=== PATIENT | male | born 1955 | race Caucasian/White ===

== ENCOUNTER → 2019-02-27 08:04 | Outpatient (CLI) | payer MEDICARE, MEDICAID, SELFPAY ==
[2019-02-06 09:50] VITALS: BMI 22.1
--- NOTE | 2019-02-27 08:06 | ECHOD_ITS ---
Reason For Study: DYSPNEA/SOB Procedure This was a 2D Doppler, Color Flow transthoracic echocardiogram. The study was technically difficult. Due to patient's developmental delays exam was performed supine. Exam performed in department. Left Ventricle Normal LV size. Mild global left ventricular systolic dysfunction. The estimated ejection fraction is 45 %. Diastolic function is indeterminate. Mid-Anterior : Hypokinetic. Mid-Lateral : Hypokinetic. Mid-Posterior: Hypokinetic. Mid-Inferior: Hypokinetic. Mid-inferoseptal : Hypokinetic. Mid- anteroseptal : Hypokinetic. [place] : Hypokinetic. Right Ventricle Normal RV size. Normal systolic function. Atria Normal left atrium. Normal right atrium. No doppler evidence for ASD. Mitral Valve There is no mitral annular calcification. Normal mitral valve. Mild (1+) mitral valve insufficiency. Tricuspid Valve Normal tricuspid valve. Trivial tricuspid valve insufficiency. Unable to estimate RV systolic pressure/pulmonary artery pressure due to technically difficult study. Aortic Valve Trisinus/trileaflet aortic valve. Normal aortic valve. Mild (1+) aortic valve insufficiency. Pulmonic Valve The pulmonic valve is not well visualized. Trivial pulmonic valve insufficiency. Great Vessels Normal sized aortic root. Pericardium/Pleural No pericardial effusion. MMode/2D Measurements & Calculations LVIDd: 4.6 cm IVSd: 0.93 cm Ao root diam: 3.2 cm LVIDs: 3.4 cm LVPWd: 1.0 cm LA dimension: 2.9 cm RVDd: 2.4 cm FS: 25.4 % LAV(MOD-bp): 49.2 ml LA A4 area: 18.0 cm2 RA A4 area: 12.7 cm2 LAV(MOD-bp) Indexed: 25.7 ml/m2 LAV(MOD-sp2): 42.6 ml LAV(MOD-sp4): 47.7 ml Time Measurements MV dec time: 0.10 sec Doppler Measurements & Calculations MV E max frantz: 34.4 cm/sec Lat Peak E' Frantz: 5.5 cm/sec Med Peak E' Frantz: 7.9 cm/sec MV A max frantz: 46.7 cm/sec E/E' lat: 6.3 E/E' med: 4.4 MV E/A: 0.74 Ao V2 max: 112.4 cm/sec AI max frantz: 461.0 cm/sec LV V1 max: 99.8 cm/sec Ao max P.0 mmHg AI max P.0 mmHg LV V1 max P.0 mmHg AI dec slope: 320.2 cm/sec2 AI P1/2t: 421.7 msec PA V2 max: 85.4 cm/sec Interpretation Summary The study was technically difficult. Mild global left ventricular systolic dysfunction. The estimated ejection fraction is 45 %. Mild (1+) mitral valve insufficiency. Trivial tricuspid valve insufficiency. Mild (1+) aortic valve insufficiency. Trivial pulmonic valve insufficiency. Unable to estimate RV systolic pressure/pulmonary artery pressure due to technically difficult study. Diastolic function is indeterminate. Ordering Physician: Isauro Aaron Referring Physician: Nehemiah Thomas Performed By: Angie Hoffman RDCS, RVT
== END ==
PROVIDERS: Family Provider Internal Medicine; PCP Internal Medicine; Referring Provider Nurse Practitioner Family; Visit Provider Nurse Practitioner Family
DX: R06.09 Other forms of dyspnea (principal); I25.2 Old myocardial infarction; I43 Cardiomyopathy in diseases classified elsewhere; I10 Essential (primary) hypertension; E78.00 Pure hypercholesterolemia, unspecified; E11.9 Type 2 diabetes mellitus without complications
CPT/HCPCS: 93306

== ENCOUNTER → 2019-11-26 08:20 | Outpatient (CLI) | payer MEDICARE, MEDICAID, SELFPAY ==
[2019-02-06 09:50] VITALS: BMI 22.1
--- NOTE | 2019-11-26 08:22 | RAD_ITS ---
STUDY: AIR-CONTRAST UPPER GI SERIES. REASON FOR EXAM: Male, 64 years old. GI BLEEDING, VOMITING, DOUBLE HERNIA 3-4 YRS -- ABD PAIN FLUOROSCOPY TIME (if supplied): ( 38 seconds. ) minutes/seconds. 17 images were obtained. TECHNIQUE: The patient ingested barium. Multiple images of the esophagus, stomach and duodenum were obtained. COMPARISON: None. FINDINGS: The esophagus is unremarkable. There is no evidence of gastroesophageal reflux. No mass lesion or stricture is seen. The stomach and duodenum are unremarkable. There is no evidence of ulceration. No mass lesion is present. RAD/Upper GI Single Contrast IMPRESSION: Unremarkable air-contrast upper GI series. Electronically Signed: Andrew Harris, at 13:39 EDT , Service support ,
== END ==
PROVIDERS: PCP Internal Medicine; Referring Provider Nurse Practitioner Adult Health; Visit Provider Nurse Practitioner Adult Health
DX: R10.9 Unspecified abdominal pain (principal)
CPT/HCPCS: 74240

== ENCOUNTER 2020-10-15 10:23 | Emergency (ER) | payer MEDICARE, MEDICAID, SELFPAY ==
[2020-10-15 10:24] VITALS: BP 123/77; PULSE 91; RESP 18; TEMP 36.6; O2SAT 97; BMI 20.9
--- NOTE | 2020-10-15 10:44 | CT_ITS ---
STUDY: CT BRAIN WITHOUT CONTRAST REASON FOR EXAM: Male, 65 years old. Off balance, hx of strokes RADIATION DOSAGE (If Supplied By Facility): CTDIvol = ( 44.99 ) mGy, DLP = ( 829.85 ) mGycm TECHNIQUE: Transaxial CT imaging of the brain was performed without administration of intravenous contrast material. Individualized dose optimization techniques were used for this CT. COMPARISON: No relevant priors. FINDINGS: Normal soft tissue structures. Normal calvarium. There is mild cerebral atrophy with widening of the extra-axial spaces and ventricular dilatation. There is evidence of encephalomalacia involving the right frontal lobe suggestive of prior ischemic infarction. Lacunar infarct in the insular cortex of the left temporal lobe. Normal brainstem. Normal cerebellum. There is no intracranial hemorrhage. There are no findings of an acute ischemic infarction. Normal visualized paranasal sinuses. CT/Brain/Head without Contrast IMPRESSION: Chronic involutional changes of the brain. Encephalomalacia involving the right frontal lobe. Electronically Signed: Andrew Harris MD at 11:55 EDT , Service support ,
[2020-10-15 10:55] LABS: Absolute Lymphocyte Count 1.68 X10^3/uL (0.83-4.51); Absolute Neutrophil Count 4.3 X10^3/uL (2.0-7.7); Basophil# 0.06 X10^3/uL; Basophil% 0.9 % (0-1); Eosinophil# 0.16 X10^3/uL; Eosinophils% 2.3 % (0-5); Hematocrit 48.3 % (40-54); Hemoglobin 15.5 g/dL (13.0-16.5); Lymphocyte # 1.68 X10^3/ul (0.83-4.51); Lymphocyte % 24.6 % (19-41); Mean Corp Hgb Conc 32.1 g/dL (32-36); Mean Corpuscular Hgb 27.9 pg (27.0-32.0); Mean Corpuscular Volume 86.9 fL (80-94); Monocyte% 8.8 % (0-10); NRBC Flagged by Analyzer 0 % (0-5); Neutrophil % 63.1 % (47-70); Platelet Count 219 K/mm3 (150-450); RBC Distribution Width CV 13.2 % (11.6-14.6); RBC Distribution Width SD 42.6 fl (35.1-43.9); Red Blood Count 5.56 M/mm3 (4.6-6.2); White Blood Count 6.8 K/mm3 (4.4-11.0)
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
[2020-10-15 11:12] LABS: Anion Gap 2 (5-15); BUN 19 mg/dL (7-18); BUN/Creat Ratio 18.1 RATIO (10-20); Calcium,Total 9.5 mg/dL (8.5-10.1); Chloride 104 mmol/L (98-107); Creatinine, Serum 1.05 mg/dL (0.70-1.30); EST Glomerular Filtration Rate 76 mL/min (>60); Est Glom Filt Rate - Afr Amer 92 mL/min (>60); Glucose 143 mg/dL (74-106); Sodium Level 138 mmol/L (136-145); Troponin-I HS 5 pg/mL (3.0-78.0)
[2020-10-15 12:55] VITALS: BP 139/94
== END 2020-10-15 13:04 | disposition home or self-care (01) ==
PROVIDERS: Emergency Provider Emergency Medicine; PCP Internal Medicine
DX: R25.1 Tremor, unspecified (principal); I11.0 Hypertensive heart disease with heart failure; I50.9 Heart failure, unspecified; I25.2 Old myocardial infarction; E78.00 Pure hypercholesterolemia, unspecified; E11.9 Type 2 diabetes mellitus without complications; Z79.84 Long term (current) use of oral hypoglycemic drugs; Z79.82 Long term (current) use of aspirin; Z79.899 Other long term (current) drug therapy; Z86.73 Personal history of transient ischemic attack (TIA), and cerebral infarction without residual deficits
CPT/HCPCS: 70450; 80048; 84484; 85025; 99285; A4216

== ENCOUNTER 2021-04-28 12:41 | Inpatient (IN) | payer MEDICARE, MEDICAID, SELFPAY ==
[2021-04-28] VITALS (7 sets, daily range): BP systolic 120–140; BP diastolic 65–88; PULSE 78–112; RESP 16–40; TEMP 36.3–38.2; O2SAT 98–99
--- NOTE | 2021-04-28 14:38 | EKG12_ITS ---
Test Reason : Blood Pressure : / mmHG Vent. Rate : 103 BPM Atrial Rate : 103 BPM P-R Int : 144 ms QRS Dur : 086 ms QT Int : 332 ms P-R-T Axes : 019 -18 135 degrees QTc Int : 434 ms Sinus tachycardia Septal infarct , age undetermined ST & T wave abnormality, consider anterolateral ischemia Abnormal ECG Confirmed by QUINCY GOODSON, ZULEIMA ([id number]), editor book MYRIAM HER ([id number]) on 04/29/2021 9:11:50 AM Referred By: CARLY Confirmed By:ZULEIMA MATHEW MD
--- NOTE | 2021-04-28 14:38 | RAD_ITS ---
STUDY: X-RAY CHEST REASON FOR EXAM: Male, 66 years old. Fever. TECHNIQUE: Single AP portable view of the chest. COMPARISON: None. FINDINGS: EKG electrodes are seen. The lungs are clear and expanded. There is no demonstrated pleural abnormality. Normal size heart. Normal mediastinum and quique. Normal visualized pulmonary arteries. There is atherosclerotic tortuosity of the aortic arch and descending thoracic aorta. There are degenerative changes of the visualized thoracic spine. Normal visualized ribs, clavicles, and shoulders. There is no demonstrated abnormality of the visualized soft tissue structures of the upper abdomen. RAD/Chest 1 View (Portable) IMPRESSION: No acute abnormality is seen. Electronically Signed: Andrew Harris MD at 15:12 EST ,
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
[2021-04-28 14:53] LABS: Mucous, Urine 0 SEEN /hpf (<or=2+)
[2021-04-28 14:54] LABS: Absolute Lymphocyte Count 1.09 X10^3/uL (0.83-4.51); Absolute Neutrophil Count 16.4 X10^3/uL (2.0-7.7); Basophil# 0.05 X10^3/uL; Basophil% 0.3 % (0-1); Eosinophils% 0.5 % (0-5); Hematocrit 46.8 % (40-54); Hemoglobin 15.8 g/dL (13.0-16.5); Lymphocyte # 1.09 X10^3/ul (0.83-4.51); Lymphocyte % 5.6 % (19-41); Mean Corp Hgb Conc 33.8 g/dL (32-36); Mean Corpuscular Hgb 28.3 pg (27.0-32.0); Mean Corpuscular Volume 83.9 fL (80-94); Mean Platelet Vol. 10.6 fl (6.2-12.0); Monocyte# 1.68 X10^3/uL; Monocyte% 8.7 % (0-10); NRBC Flagged by Analyzer 0 % (0-5); Neutrophil # 16.36 X10^3/uL (2.7-7.7); Neutrophil % 84.2 % (47-70); POSITIVE DIFFERENTIAL YES; Platelet Count 237 K/mm3 (150-450); RBC Distribution Width CV 13.3 % (11.6-14.6); RBC Distribution Width SD 41.1 fl (35.1-43.9); Red Blood Count 5.58 M/mm3 (4.6-6.2); White Blood Count 19.4 K/mm3 (4.4-11.0)
[2021-04-28 14:57] LABS: ALB/GLOB Ratio 0.9 RATIO (0.9-2.4); AST(SGOT) 10 U/L (15-37); Alanine Aminotransfer ALT/SGPT 16 U/L (16-61); Albumin, Serum 3.8 g/dL (3.2-5.0); Alkaline Phosphatase 75 U/L (45-117); Anion Gap 6 (5-15); BUN 13 mg/dL (7-18); Calcium,Total 9.5 mg/dL (8.5-10.1); Chloride 98 mmol/L (98-107); Creatinine, Serum 1.18 mg/dL (0.70-1.30); EST Glomerular Filtration Rate 66 mL/min (>60); Est Glom Filt Rate - Afr Amer 80 mL/min (>60); Estimated Creatinine Clearance 60.05 ml/min; Globulin 4.4 g/dL (2.2-4.2); Glucose 160 mg/dL (74-106); Potassium 3.3 mmol/L (3.5-5.1); Protein, Total 8.2 g/dL (6.4-8.2); Sodium Level 135 mmol/L (136-145)
[2021-04-28 14:59] LABS: Lactic Acid 1.7 mmol/L (0.4-1.9)
[2021-04-28 15:00] LABS: Differential Indicated SCAN CRITERIA MET; International Normalized Ratio 1.1; Prothrombin Time (Protime)PT. 13.5 SECONDS (11.7-14.9)
[2021-04-28 15:21] LABS: Color, Urine Yellow (Yellow); Glucose, Dipstick 250 mg/dl (Normal); Ketone-Dipstick 15 mg/dl (Negative); Leukocyte Esterase-Dipstick 500 /ul (Negative); Nitrite-Dipstick Positive (Negative); Occult Blood-Urine 150 /ul (Negative); Protein-Dipstick 15 mg/dl (Negative); Specific Gravity, Urine 1.015 (1.002-1.030); Urine Bilirubin Dipstick Negative (Negative); Urine Clarity Sl. Cloudy (Clear); Urine Urobilinogen Normal (Normal)
[2021-04-28 15:31] LABS: Bacteria 2+ /hpf (None Seen); Red Blood Cells-Urine 10-25 SEEN /hpf (0-5); Squamous Epithelial Cells - UA 0-5 SEEN /hpf (0-5); White Blood Cells 25-50 SEEN /hpf (0-5)
[2021-04-28] MEDS: Ceftriaxone 1 GM/50 ML BAG IV (16:28)
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
[2021-04-28 18:46] LABS: Bedside Glucose 176 mg/dL (74-106)
[2021-04-28] MEDS: 0.9% Normal Saline 1,000 ML 150 ML IV (19:08)
[2021-04-28] MEDS: metFORMIN HCl 500 MG Tablet PO (19:09)
[2021-04-28] MEDS: Atorvastatin Calcium 10 MG Tablet PO (22:00)
[2021-04-28] MEDS: Glucerna Shake 120 ML LIQUID PO (22:00)
[2021-04-28] MEDS: Carvedilol 12.5 MG Tablet PO (22:00)
[2021-04-28] MEDS: 0.9% Saline Lock 10 ML Syringe IV (22:00)
[2021-04-29 00:21] LABS: Bedside Glucose 183 mg/dL (74-106)
[2021-04-29 01:28] VITALS: BP 138/83; PULSE 115; RESP 18; TEMP 37.8; O2SAT 96
[2021-04-29 05:25] LABS: Absolute Lymphocyte Count 1.38 X10^3/uL (0.83-4.51); Absolute Neutrophil Count 15.6 X10^3/uL (2.0-7.7); Basophil# 0.05 X10^3/uL; Basophil% 0.3 % (0-1); Eosinophils% 0.5 % (0-5); Hematocrit 39.2 % (40-54); Hemoglobin 12.8 g/dL (13.0-16.5); Lymphocyte # 1.38 X10^3/ul (0.83-4.51); Lymphocyte % 7.4 % (19-41); Mean Corp Hgb Conc 32.7 g/dL (32-36); Mean Corpuscular Hgb 27.2 pg (27.0-32.0); Mean Corpuscular Volume 83.4 fL (80-94); Mean Platelet Vol. 10.4 fl (6.2-12.0); Monocyte# 1.56 X10^3/uL; Monocyte% 8.3 % (0-10); NRBC Flagged by Analyzer 0 % (0-5); Neutrophil % 83.1 % (47-70); POSITIVE DIFFERENTIAL YES; Platelet Count 188 K/mm3 (150-450); RBC Distribution Width CV 13.3 % (11.6-14.6); RBC Distribution Width SD 41.1 fl (35.1-43.9); White Blood Count 18.8 K/mm3 (4.4-11.0)
[2021-04-29 05:30] LABS: Differential Indicated SCAN CRITERIA MET
[2021-04-29 05:38] LABS: Differential Comment SCANNED
[2021-04-29 05:57] LABS: Anion Gap 5 (5-15); BUN 11 mg/dL (7-18); BUN/Creat Ratio 11.9 RATIO (10-20); Calcium,Total 8.7 mg/dL (8.5-10.1); Chloride 105 mmol/L (98-107); Creatinine, Serum 0.93 mg/dL (0.70-1.30); EST Glomerular Filtration Rate 87 mL/min (>60); Est Glom Filt Rate - Afr Amer 106 mL/min (>60); Estimated Creatinine Clearance 75.81 ml/min; Glucose 158 mg/dL (74-106); Potassium 3.2 mmol/L (3.5-5.1); Sodium Level 136 mmol/L (136-145); Thyroid Stim Hormone (TSH) 1.03 uIU/mL (0.358-3.74)
[2021-04-29 06:56] LABS: Bedside Glucose 163 mg/dL (74-106)
[2021-04-29] MEDS: Insulin Lispro 100 UNIT/ML INSULN.PEN SC ×3 (07:16→16:03)
[2021-04-29] MEDS: 0.9% Saline Lock 10 ML Syringe IV ×3 (07:18→22:53)
[2021-04-29 07:30] VITALS: O2SAT 96
[2021-04-29 09:27] VITALS: BP 114/73; PULSE 93; RESP 16; TEMP 36.8; O2SAT 95
[2021-04-29] MEDS: Carvedilol 12.5 MG Tablet PO ×2 (09:54→22:53)
[2021-04-29] MEDS: Cholecalciferol (VIT D3) 25 MCG TABLET (1,000 UNITS) PO (09:54)
[2021-04-29] MEDS: metFORMIN HCl 500 MG Tablet PO ×2 (09:54→16:04)
[2021-04-29] MEDS: Aspirin 81 MG TAB.CHEW PO (09:55)
[2021-04-29] MEDS: Enoxaparin 40 MG/0.4 ML Syringe SC (09:55)
[2021-04-29] MEDS: Menthol/Lanolin/Calamine/Znox 113 GM Tube 1 APPLIC TOPICAL ×2 (09:55→22:52)
[2021-04-29] MEDS: Tolterodine Tartrate 2 MG CAP.SA PO (09:55)
[2021-04-29] MEDS: Pantoprazole Sodium 40 MG Tablet PO (09:55)
[2021-04-29] MEDS: Potassium Chloride Oral Tablet 20 MEQ 40 MEQ PO (10:02)
[2021-04-29] MEDS: Ceftriaxone 1 GM/50 ML BAG IV (10:07)
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
[2021-04-29 11:21] LABS: Bedside Glucose 181 mg/dL (74-106)
[2021-04-29 11:44] VITALS: BP 117/78; PULSE 103; RESP 16; TEMP 37.1; O2SAT 96
[2021-04-29 12:25] LABS: Pathologist Review Reviewed
[2021-04-29 12:26] LABS: Pathologist Review Reviewed
--- NOTE | 2021-04-29 12:28 | CASEMGMT ---
Addendum entered by Leti Keita 04/29/21 16:09: Error in previous charting- Pt sister in room, not mother. [facility] accepted pt for services. Plan to start on 05/02/2021. Original Note: RN BLADE in to pt room, pt mother present. Discussed dc planning. Pt mother interested in C therapy, not nursing currently. Discussed SN and what that would entail. She is aware that if she changes her mind and finds a need for SN, it can be added. Patient was provided a list of [facility] providers including quality and resource use data and consistent with the patient?s preferred geographic region, medical needs, and insurance network. The patient?s preferred provider is [facility]. JAZ Stiles at [facility], left message with referral. Awaiting acceptance.
[2021-04-29 15:19] VITALS: BP 110/67; PULSE 102; RESP 16; TEMP 37.5; O2SAT 93
[2021-04-29 16:11] LABS: Bedside Glucose 164 mg/dL (74-106)
--- NOTE | 2021-04-29 21:34 | NURSING ---
Sister of patient just told this RN that patient has had multiple falls when he was staying at his mother's house. That is why patient came to live with sister in February. Last night sister said he hadn't had any falls However, patient's sister just remembered the falls.
[2021-04-29 22:46] VITALS: BP 119/80; PULSE 102; RESP 18; TEMP 37.2; O2SAT 95
[2021-04-29] MEDS: Atorvastatin Calcium 10 MG Tablet PO (22:53)
[2021-04-29 23:11] LABS: Bedside Glucose 164 mg/dL (74-106)
[2021-04-30 04:46] VITALS: BP 117/73; PULSE 87; RESP 18; TEMP 37; O2SAT 94
[2021-04-30 05:32] LABS: Absolute Lymphocyte Count 1.63 X10^3/uL (0.83-4.51); Absolute Neutrophil Count 7.5 X10^3/uL (2.0-7.7); Basophil# 0.05 X10^3/uL; Basophil% 0.5 % (0-1); Eosinophil# 0.09 X10^3/uL; Eosinophils% 0.9 % (0-5); Hematocrit 38.9 % (40-54); Hemoglobin 13.2 g/dL (13.0-16.5); Lymphocyte # 1.63 X10^3/ul (0.83-4.51); Lymphocyte % 15.5 % (19-41); Mean Corp Hgb Conc 33.9 g/dL (32-36); Mean Corpuscular Hgb 28.8 pg (27.0-32.0); Mean Corpuscular Volume 84.7 fL (80-94); Mean Platelet Vol. 10.9 fl (6.2-12.0); Monocyte% 11.4 % (0-10); NRBC Flagged by Analyzer 0 % (0-5); Neutrophil # 7.47 X10^3/uL (2.7-7.7); Neutrophil % 71.1 % (47-70); Platelet Count 193 K/mm3 (150-450); RBC Distribution Width CV 13.6 % (11.6-14.6); RBC Distribution Width SD 42.4 fl (35.1-43.9); Red Blood Count 4.59 M/mm3 (4.6-6.2); White Blood Count 10.5 K/mm3 (4.4-11.0)
[2021-04-30 06:02] LABS: ALB/GLOB Ratio 0.7 RATIO (0.9-2.4); AST(SGOT) 24 U/L (15-37); Alanine Aminotransfer ALT/SGPT 25 U/L (16-61); Albumin, Serum 2.7 g/dL (3.2-5.0); Alkaline Phosphatase 63 U/L (45-117); Anion Gap 5 (5-15); BUN 14 mg/dL (7-18); BUN/Creat Ratio 14.4 RATIO (10-20); Chloride 108 mmol/L (98-107); Creatinine, Serum 0.97 mg/dL (0.70-1.30); EST Glomerular Filtration Rate 83 mL/min (>60); Est Glom Filt Rate - Afr Amer 100 mL/min (>60); Estimated Creatinine Clearance 72.68 ml/min; Globulin 4.1 g/dL (2.2-4.2); Glucose 126 mg/dL (74-106); Potassium 3.6 mmol/L (3.5-5.1); Protein, Total 6.8 g/dL (6.4-8.2); Sodium Level 139 mmol/L (136-145)
[2021-04-30 07:01] LABS: Bedside Glucose 147 mg/dL (74-106)
[2021-04-30 07:40] VITALS: BP 103/82; PULSE 89; RESP 16; TEMP 36.9; O2SAT 94
[2021-04-30] MEDS: Aspirin 81 MG TAB.CHEW PO (07:48)
[2021-04-30] MEDS: metFORMIN HCl 500 MG Tablet PO (07:48)
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
[2021-04-30 11:20] LABS: Bedside Glucose 169 mg/dL (74-106)
[2021-04-30] MEDS: Ceftriaxone 1 GM/50 ML BAG IV (11:50)
[2021-04-30] MEDS: Carvedilol 12.5 MG Tablet PO (11:51)
[2021-04-30] MEDS: Tolterodine Tartrate 2 MG CAP.SA PO (11:52)
[2021-04-30] MEDS: Enoxaparin 40 MG/0.4 ML Syringe SC (11:55)
[2021-04-30] MEDS: Pantoprazole Sodium 40 MG Tablet PO (11:56)
[2021-04-30] MEDS: Cholecalciferol (VIT D3) 25 MCG TABLET (1,000 UNITS) PO (11:56)
[2021-04-30] MEDS: Insulin Lispro 100 UNIT/ML INSULN.PEN SC (12:01)
[2021-04-30] MEDS: Menthol/Lanolin/Calamine/Znox 113 GM Tube 1 APPLIC TOPICAL (12:01)
[2021-04-30 13:09] VITALS: BP 106/67; PULSE 95; RESP 16; TEMP 36.6; O2SAT 95
== END 2021-04-30 13:22 | disposition home health service (06) | DRG 871 ==
LOC: ED 16:16 → MS3 17:46
PROVIDERS: Emergency Provider Emergency Medicine; PCP Internal Medicine; Visit Provider Internal Medicine
DX: A41.9 Sepsis, unspecified organism (principal); G93.41 Metabolic encephalopathy; I43 Cardiomyopathy in diseases classified elsewhere; N39.0 Urinary tract infection, site not specified; E11.9 Type 2 diabetes mellitus without complications; E78.00 Pure hypercholesterolemia, unspecified; B96.20 Unspecified Escherichia coli [E. coli] as the cause of diseases classified elsewhere; I95.9 Hypotension, unspecified; Z79.4 Long term (current) use of insulin; I10 Essential (primary) hypertension; I25.10 Atherosclerotic heart disease of native coronary artery without angina pectoris; R41.841 Cognitive communication deficit; Z79.82 Long term (current) use of aspirin; Z79.84 Long term (current) use of oral hypoglycemic drugs; Z79.899 Other long term (current) drug therapy; Z87.820 Personal history of traumatic brain injury; Z86.73 Personal history of transient ischemic attack (TIA), and cerebral infarction without residual deficits
CPT/HCPCS: 36415; 71045; 80048; 80053; 81001; 82962; 83605; 84443; 85025; 85610; 87040; 87086; 87088; 87186; 93005; 97162; 97167; 97530; 97802; 99284; J7030; J7040; A4216

== ENCOUNTER → 2021-06-29 | Outpatient (CLI) | payer MEDICARE, MEDICAID, SELFPAY ==
[2021-06-29 12:25] LABS: Absolute Lymphocyte Count 1.81 X10^3/uL (0.83-4.51); Absolute Neutrophil Count 3.6 X10^3/uL (2.0-7.7); Basophil% 1.5 % (0-1); Eosinophil# 0.25 X10^3/uL; Eosinophils% 3.9 % (0-5); Hemoglobin 14.7 g/dL (13.0-16.5); Lymphocyte # 1.81 X10^3/ul (0.83-4.51); Lymphocyte % 27.9 % (19-41); Mean Corp Hgb Conc 31.3 g/dL (32-36); Mean Corpuscular Hgb 26.7 pg (27.0-32.0); Mean Corpuscular Volume 85.5 fL (80-94); Mean Platelet Vol. 10.2 fl (6.2-12.0); Monocyte# 0.68 X10^3/uL; Monocyte% 10.5 % (0-10); NRBC Flagged by Analyzer 0 % (0-5); Neutrophil # 3.64 X10^3/uL (2.7-7.7); Platelet Count 263 K/mm3 (150-450); RBC Distribution Width CV 14.1 % (11.6-14.6); RBC Distribution Width SD 44.3 fl (35.1-43.9); White Blood Count 6.5 K/mm3 (4.4-11.0)
[2021-06-29 13:15] LABS: Vitamin B12 312 pg/mL (211-911); Vitamin D,25 Hydroxy 55.3 ng/mL
[2021-06-29 13:23] LABS: AST(SGOT) 14 U/L (15-37); Alanine Aminotransfer ALT/SGPT 21 U/L (16-61); Albumin, Serum 3.9 g/dL (3.2-5.0); Alkaline Phosphatase 73 U/L (45-117); Anion Gap 6 (5-15); BUN 15 mg/dL (7-18); BUN/Creat Ratio 14.4 RATIO (10-20); Calcium,Total 9.3 mg/dL (8.5-10.1); Chloride 101 mmol/L (98-107); Cholesterol 138 mg/dL (200); Creatinine, Serum 1.04 mg/dL (0.70-1.30); EST Glomerular Filtration Rate 76 mL/min (>60); Est Glom Filt Rate - Afr Amer 92 mL/min (>60); Ferritin 76 ng/mL (26-388); Globulin 3.9 g/dL (2.2-4.2); Glucose 95 mg/dL (74-106); High Density Lipoprotein 37 mg/dL; Potassium 3.7 mmol/L (3.5-5.1); Protein, Total 7.8 g/dL (6.4-8.2); Sodium Level 138 mmol/L (136-145); Thyroid Stim Hormone (TSH) 1.79 uIU/mL (0.358-3.74); Triglycerides 97 mg/dL; Very Low Density Lipoprotein 19 mg/dL (5-40)
== END | disposition home or self-care (01) ==
LOC: BIMLAB 11:36
PROVIDERS: PCP Internal Medicine; Referring Provider Nurse Practitioner Family; Visit Provider Nurse Practitioner Family
DX: R63.4 Abnormal weight loss (principal); E11.9 Type 2 diabetes mellitus without complications; E55.9 Vitamin D deficiency, unspecified
CPT/HCPCS: 80053; 80061; 82306; 82607; 82728; 84443; 85025

== ENCOUNTER 2021-11-24 14:36 | Outpatient (CLI) | payer MEDICARE, MEDICAID, SELFPAY ==
[2021-11-24 15:05] LABS: Erythrocyte Sedimentation Rate 6 mm/hr (0-20)
[2021-11-24 15:53] LABS: Amylase 103 U/L (25-115); CPK Total, Creatine Kinase 50 U/L (39-308); CRP < 2.90 mg/L (0.0-3.0); LDH 161 U/L (87-241); Lipase 308 U/L (73-393); PSA,Total - Annual Screen 3.31 ng/mL (0.00-4.00)
[2021-11-26 18:07] LABS: Endomysial Antibody IgA Negative (Negative)
[2021-11-27 09:37] LABS: Immunoglobulin A 344 mg/dL (61-437); t-Transglutaminase IgA <2 U/mL (0-3)
[2021-11-28 13:07] LABS: Anti-Centromere B Ab <0.2 AI (0.0-0.9); Anti-Chromatin <0.2 AI (0.0-0.9); Anti-Jo <0.2 AI (0.0-0.9); Anti-Scleroderma-70 AB <0.2 AI (0.0-0.9); RNP Ab <0.2 AI (0.0-0.9); SJOGREN'S Anti-SS-A test < 0.2 AI (0.0-0.9); SJOGREN'S Anti-SS-B test < 0.2 AI (0.0-0.9); Smith Ab <0.2 AI (0.0-0.9)
[2021-11-28 14:45] LABS: Anti-dsDNA Ab <1 IU/mL (0-9)
[2021-12-02 12:08] LABS: Albumin 3.9 g/dL (2.9-4.4); Alpha-1-Globulins 0.2 g/dL (0.0-0.4); Alpha-2-Globulins 0.9 g/dL (0.4-1.0); Cytoplasmic Ab (C-ANCA) <1:20 titer (Neg:<1:20); Immunoglobulin A 352 mg/dL (61-437); Immunoglobulin E 351 IU/mL (6-495); Immunoglobulin G 1009 mg/dL (603-1613); Immunoglobulin M 33 mg/dL (20-172); PROEL- TOTAL PROTEIN 7.3 g/dL (6.0-8.5)
[2021-12-02 15:40] LABS: Aldolase 3.9 U/L (3.3-10.3); Carbohydrate Ag 19-9 2261 28 U/mL (0-35); Carcinoembryonic Antigen 1.9 ng/mL (0.0-4.7); Perinuclear Ab (P-ANCA) <1:20 titer (Neg:<1:20)
== END 2021-11-24 23:59 | disposition home or self-care (01) ==
LOC: LAB 14:37
PROVIDERS: PCP Internal Medicine; Referring Provider Internal Medicine Gastroenterology; Visit Provider Internal Medicine Gastroenterology
DX: R63.4 Abnormal weight loss (principal); K59.00 Constipation, unspecified; C18.9 Malignant neoplasm of colon, unspecified; C61 Malignant neoplasm of prostate; Z12.5 Encounter for screening for malignant neoplasm of prostate
CPT/HCPCS: 36415; 82085; 82150; 82378; 82550; 82784; 82785; 83516; 83615; 83690; 84153; 84165; 85652; 86140; 86225; 86235; 86255; 86256; 86301; 86334; G0103

== ENCOUNTER → 2021-12-02 | Outpatient (CLI) | payer MEDICARE, MEDICAID, SELFPAY ==
--- NOTE | 2021-12-02 07:46 | US_ITS ---
STUDY: ABDOMINAL ULTRASOUND - RIGHT UPPER QUADRANT REASON FOR VISIT: Male, 66 years old abdomen pain, weight loss TECHNIQUE: Ultrasound evaluation of the right upper quadrant was performed with real-time and static hicks-scale imaging. TECHNICAL QUALITY: Limited. Examination limited due to the patient?s condition. COMPARISON: None. FINDINGS: Liver: The liver measures 14.4 cm. There is normal echogenicity of the liver. The bile ducts are within normal limits. There is hepatic color flow. The direction of portal flow is hepatopetal. There is no demonstrated mass lesion. Gallbladder: Normal distended gallbladder. The gallbladder wall measures 2.1 mm. There is a negative sonographic Anders''s sign. There is no pericholecystic fluid. There are no gallstones. Common Bile Duct (C.B.D.): The common bile duct measures 2.7 mm. Pancreas: Normal size of the head, body and tail of the pancreas. There is normal echogenicity of the pancreas. There is no demonstrated pancreatic mass or cyst. Right Kidney: Normal size of the right kidney. The right kidney measures 9.3 cm x 4.2 cm x 5.1 cm. Normal renal cortex. The right cortex measures 1.4 cm. There is a 5.1 cm x 5.8 cm x 5.8 cm cyst in the medial aspect of the kidney. There is no right hydronephrosis. US/Gallbladder IMPRESSION: Normal right upper quadrant ultrasound examination. Electronically Signed: Andrew Harris MD at 13:01 EDT ,
[2021-12-07 08:41] LABS: Pancreatic Elastase, Fecal 286 (>200)
[2021-12-10 14:33] LABS: Calprotectin, Stool 121 ug/g (0-120); Fats, Neutral Normal (.); Fats, Total Increased (.)
== END | disposition home or self-care (01) ==
PROVIDERS: PCP Internal Medicine; Referring Provider Internal Medicine Gastroenterology; Visit Provider Internal Medicine Gastroenterology
DX: K59.00 Constipation, unspecified (principal); K58.9 Irritable bowel syndrome, unspecified; R63.4 Abnormal weight loss; R10.11 Right upper quadrant pain; R19.7 Diarrhea, unspecified
CPT/HCPCS: 76705; 82653; 82705; 83630; 83993; 87506

== ENCOUNTER → 2022-03-06 | Outpatient (CLI) | payer MEDICARE, MEDICAID, SELFPAY ==
--- NOTE | 2022-03-06 08:02 | CT_ITS ---
STUDY: CT ABDOMEN AND PELVIS WITH CONTRAST REASON FOR EXAM: Male, 67 years old. Unintentional weight loss, abd pain -- oral and iv RADIATION DOSAGE (If Supplied By Facility): CTDIvol = ( 12.51 ) mGy, DLP = ( 470.79 ) mGycm TECHNIQUE: Transaxial images were obtained from the dome of the diaphragm to the symphysis pubis with oral contrast. Oral and amp; IV Gastrografin and amp; 100mL Isovue-300 was administered. Sagittal and coronal images were reconstructed. Individualized dose optimization techniques were used for this CT. COMPARISON: None. FINDINGS: The visualized lung bases are unremarkable. The visualized portions of the heart are within normal limits. Normal liver. Normal gallbladder and extrahepatic biliary system. Normal spleen. Normal pancreas. Normal bilateral adrenal glands. 55.3 cm x 6.2 cm cyst in the lateral portion of the right kidney. Small left renal cysts. Normal visualized stomach. Normal small intestine. Normal colon. The appendix is visualized and appears normal. Normal abdominal aorta. Normal inferior vena cava. Normal retroperitoneum. Normal urinary bladder. Heterogeneous enlargement of the prostate with the nodular indentation at the bladder base measuring 1.7 cm x 1.6 cm. There is also evidence of increased density in the central portion of the prostate with calcification. Prior lower anterior abdominal wall hernia repair extending into the left inguinal region. There are degenerative changes of the visualized lumbar spine. CT/Abdomen/Pelvis WITH Contrast IMPRESSION: Bilateral renal cysts more prominent on the right side. Heterogeneous enlargement of the prostate with nodular indentation at the bladder base as described. Electronically Signed: Andrew Harris MD at 15:31 EST ,
[2022-03-06 08:35] LABS: CREATININE FINGERSTICK < 0.9 mg/dL (0.70-1.30); EGFR FINGERSTICK > 60.0000 mL/min (>60)
== END | disposition home or self-care (01) ==
LOC: CT 08:01
PROVIDERS: PCP Internal Medicine; Visit Provider Nurse Practitioner Adult Health
DX: R10.9 Unspecified abdominal pain (principal); R63.4 Abnormal weight loss
CPT/HCPCS: 74177; Q9967; A4216

== ENCOUNTER 2022-03-16 10:08 | Emergency (ER) | payer MEDICARE, MEDICAID, SELFPAY ==
[2022-03-16 10:10] VITALS: BP 120/83; PULSE 74; RESP 16; TEMP 36.5; O2SAT 98; BMI 18.4
--- NOTE | 2022-03-16 10:33 | EDS_ITS ---
HPI History of Present Illness Chief Complaint: Hypotension Detail of Chief Complaint: Transient hypotension Informant: legal guardian and family Narrative Narrative: Patient presents to the emergency department from home with caregiver and POA. Patient apparently has been having hypotensive episodes since end of January. He had his carvedilol decreased recently to 6.25 mg twice daily. Patient has had increased weakness and has been losing some weight. Caregiver was concerned about possibility for dehydration but he has been eating and drinking normally. Patient has history of prior TBI and essentially nonverbal cannot give any history. History comes from caregiver. Patient had a CAT scan of his abdomen and pelvis on March 06 per caregiver. Patient also had a recent echocardiogram. Patient's ejection fraction was 39% apparently. [facility] Medical History Acid indigestion Atherosclerosis of coronary artery Cardiomyopathy in disease classified elsewhere CHF (congestive heart failure) Essential hypertension Gait abnormality History of stroke Old myocardial infarction Overactive bladder Pure hypercholesterolemia 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 TBI (traumatic brain injury) Type 2 diabetes mellitus Urinary incontinence Home Medications aspirin 81 mg chewable tablet 81 mg PO DAILY@0800 05/30/16 [History Last Taken 04/28/21] simvastatin 20 mg tablet 20 mg PO QHS 05/30/16 [History Last Taken 04/27/21] lactobacillus combination no.9 4 billion cell capsule (Adult 50 Plus Probiotic) 4,000 mmu cells PO DAILY 08/01/18 [History Last Taken 04/27/21] nitroglycerin 400 mcg/spray translingual 0.4 mg translingual Q3-5M PRN Cardiac/Chest Pain #4.9 grams 10/15/18 [Rx Last Taken Unknown] carvedilol 12.5 mg tablet 12.5 mg PO BID #180 tabs 02/27/19 [Rx Last Taken 04/28/21] capsaicin-methyl salicylate-menthol topical cream 1 applic topical TID PRN ARTHRITIS 04/28/21 [History Last Taken 04/27/21] cholecalciferol (vitamin D3) 25 mcg (1,000 unit) capsule 25 mcg PO DAILY 04/28/21 [History Last Taken 04/27/21] omeprazole 40 mg capsule,delayed release 40 mg PO DAILY GERD 04/28/21 [History Last Taken 04/28/21] oxybutynin chloride 10 mg tablet,extended release 24 hr 10 mg PO DAILY BLADDER 04/28/21 [History Last Taken 04/28/21] cyanocobalamin (vitamin B-12) 1,000 mcg capsule 1,000 mcg PO DAILY 09/29/21 [History Last Taken Unknown] fluticasone propionate 50 mcg/actuation nasal spray,suspension (Flonase Allergy Relief) 2 spray intranasal DAILY 09/29/21 [History Last Taken Unknown] glucosamine-chondroitin 250 mg-200 mg tablet (Osteo Bi-Flex) 2 tab PO QPC 09/29/21 [History Last Taken Unknown] spironolactone 25 mg tablet 12.5 mg PO DAILY 09/29/21 [History Last Taken Unknown] metformin 500 mg tablet 500 mg PO DAILY 01/23/22 [History Last Taken Unknown] sodium,potassium,mag sulfates 17.5 gram-3.13 gram-1.6 gram oral soln (Suprep Bowel Prep Kit) See Rx Instructions PO .COMPLEX #354 mL 02/21/22 [Rx Last Taken Unknown] Allergy/AdvReac Type Severity Reaction Status Date / Time cefdinir Allergy Rash Verified 03/16/22 10:12 nitrofurantoin Allergy Rash Verified 03/16/22 10:12 [From Macrobid] BANDAR Inhibitors AdvReac Severe hypotension, Verified 02/21/22 11:07 cough Family History Mother CAD (coronary artery disease) Diabetes Hypertension Father Myocardial infarction, Onset Age: 68 Surgical History History of hernia repair Social History Smoking Status: Never smoker alcohol intake: never substance use type: does not use caffeine: Yes Type: carbonated beverages ROS ROS ED Review of Systems ROS Unobtainable: due to mental condition EXAM Physical Exam Const Vital Signs: 03/16/22 10:10 03/16/22 11:04 03/16/22 11:12 Temperature 97.7 F L Temperature Source Temporal Pulse Rate 74 Pulse Rate [Lying] 71 Pulse Rate [Sitting (for 1 minute prior to obtaining)] 77 Pulse Rate [Standing (for 1 minute prior to obtaining)] 84 Respiratory Rate 16 Respiratory Effort Normal Non-Labored Respiratory Pattern Normal Blood Pressure 120/83 H Blood Pressure [Lying] 120/75 Blood Pressure [Sitting (for 1 minute prior to obtaining)] 120/71 Blood Pressure [Standing (for 1 minute prior to obtaining)] 96/74 Blood Pressure Mean 95 Blood Pressure Mean [Lying] 90 Blood Pressure Mean [Sitting (for 1 minute prior to obtaining)] 87 Blood Pressure Mean [Standing (for 1 minute prior to obtaining)] 81 Pulse Ox 98 Oxygen Delivery Method Room Air Positive well nourished and well developed General Appearance ED: well developed and NAD HEENT Reports TM's clear and moist mucous membranes normocephalic and atraumatic; Negative for trauma or tenderness Tympanic Membrane ED: Yes TM's clear Eyes PERRL and EOMs intact bilaterally General Eye ED: Negative for pale conjunctiva or scleral icterus Neck no lymphadenopathy, supple and no JVD General: Negative for tenderness Chest Wall inspection of chest normal and palpation of chest normal Chest: Negative for tenderness Resp normal respiratory effort and clear to auscultation bilaterally Effort and Inspection: Negative for respiratory distress or pain with movement Auscultation: Negative for rhonchi, wheezes or diminished lung sounds Cardio regular rate, regular rhythm, S1 normal heart sound, S2 normal heart sound and no murmurs Peripheral Pulses: pulses 2+ throughout GI normal to inspection, nondistended, normoactive bowel sounds, soft to palpation, non-tender, non-distended and no masses Back/Spine no CVA tenderness and no thoracic nor lumbar tenderness Extremity normal to inspection General Extremety ED: Negative for edema General Extremity: Negative for edema Neuro oriented x3, CN's II-XII intact bilaterally, no sensory deficits noted and gait normal Sensorium / Orientation: awake, alert, oriented to person, oriented to place and oriented to time Motor Exam: strength 5/5 throughout and strength abnormal Psych mental status grossly normal Skin no rashes or lesions noted and no wounds MDM MDM MDM Narrative Medical decision making narrative: IV line established on arrival. Patient placed on substance abuse counselor. In the differential includes medication reaction for the hypotension versus infectious process versus cardiogenic process. Patient had an EKG obtained on arrival shows sinus rhythm with a ventricular rate of 71 bpm with old septal infarct. When compared with prior EKG no new changes noted. Patient has CBC with differential that was normal. Chemistries were unremarkable. BNP was 48. Chest x-ray unremarkable. Urinalysis was normal. Patient received a liter mostly of fluid bolus. Orthostatic blood pressures performed in with standing he did drop down to 96 from 120 but was relatively asymptomatic with that. The lowest blood pressure I saw it recorded over the last week or so has been a systolic of 89 and then patient recently had medication adjustment and his carvedilol. I recommended that they follow-up with her perinatal tech to regarding further change in his medications as he is also on a diuretic. Patient otherwise looks well. I feel he can be discharged to home. I suspect a transient hypotension likely medication related Lab Data Attestation: I reviewed the patient's lab results. Labs: Laboratory Results - last 24 hr 03/16/22 03/16/22 03/16/22 10:45 10:45 10:45 WBC 7.4 RBC 5.16 Hgb 14.1 Hct 45.2 MCV 87.6 MCH 27.3 MCHC 31.2 L RDW Std Deviation 43.5 RDW Coeff of Johnie 13.5 Plt Count 213 MPV 10.1 Immature Gran % (Auto) 0.300 Neut % (Auto) 66.3 Lymph % (Auto) 21.3 [place] % (Auto) 9.2 Eos % (Auto) 2.2 Baso % (Auto) 0.7 Absolute Neuts (auto) 4.9 Absolute Lymphs (auto) 1.58 Nucleated RBC % 0 Sodium 141 Potassium 4.0 Chloride 107 Carbon Dioxide 30.0 Anion Gap 4 L BUN 22 H Creatinine 1.00 Estim Creat Clear Calc 59.06 Est GFR (MDRD) Af Amer 96 Est GFR (MDRD) Non-Af 80 BUN/Creatinine Ratio 22.0 H Glucose 121 H Calcium 9.0 Total Bilirubin 0.50 AST 11 L ALT 21 Alkaline Phosphatase 75 Troponin I High Sens 4 B-Natriuretic Peptide 48.2 Total Protein 6.9 Albumin 3.5 Globulin 3.4 Albumin/Globulin Ratio 1.0 Urine Color Urine Clarity Urine pH Ur Specific [place] Urine Protein Urine Glucose (UA) Urine Ketones Urine Occult Blood Urine Nitrite Urine Bilirubin Urine Urobilinogen Ur Leukocyte Esterase Urine RBC Urine WBC Ur Squamous Epith Cells Urine Bacteria Urine Mucus 03/16/22 11:15 WBC RBC Hgb Hct MCV MCH MCHC RDW Std Deviation RDW Coeff of Johnie Plt Count MPV Immature Gran % (Auto) Neut % (Auto) Lymph % (Auto) [place] % (Auto) Eos % (Auto) Baso % (Auto) Absolute Neuts (auto) Absolute Lymphs (auto) Nucleated RBC % Sodium Potassium Chloride Carbon Dioxide Anion Gap BUN Creatinine Estim Creat Clear Calc Est GFR (MDRD) Af Amer Est GFR (MDRD) Non-Af BUN/Creatinine Ratio Glucose Calcium Total Bilirubin AST ALT Alkaline Phosphatase Troponin I High Sens B-Natriuretic Peptide Total Protein Albumin Globulin Albumin/Globulin Ratio Urine Color Yellow Urine Clarity Clear Urine pH 6.5 Ur Specific [place] 1.015 Urine Protein Negative Urine Glucose (UA) Normal Urine Ketones Negative Urine Occult Blood Negative Urine Nitrite Negative Urine Bilirubin Negative Urine Urobilinogen Normal Ur Leukocyte Esterase Negative Urine RBC 0 SEEN Urine WBC 0 SEEN Ur Squamous Epith Cells 0 SEEN Urine Bacteria 0 SEEN Urine Mucus 0 SEEN Radiography Chest X-Ray - ED: 1 View Diagnostic Testing: Clinical Impression(s) from Imaging Studies Chest X-Ray 03/16/22 11:30 IMPRESSION: No acute abnormality is seen. Electronically Signed: Andrew Harris MD at 12:05 EST , 1 view chest are obtained interpreted by myself no acute disease process as I do not see any infiltrate or pneumothorax. Radiology in agreement. EKG Initial EKG: Attestation: I personally reviewed and interpreted this EKG as follows: Comments: Sinus rhythm with a ventricular rate of 71 bpm with old septal infarct Prior EKG tracings: available for review Discharge Plan Triage Chief Complaint: Hypotension ED Provider: Dandy oRdriguez Dx/Rx/DC Orders Clinical Impression: Hypotension, Generalized weakness Instructions: ED Hypotension, Orthostatic, ED Weakness (Uncertain Cause) Prescriptions: No Action Adult 50 Plus Probiotic 4 billion cell capsule 4,000 mmu cells PO DAILY cyanocobalamin (vitamin B-12) 1,000 mcg capsule 1,000 mcg PO DAILY spironolactone 25 mg tablet 12.5 mg PO DAILY fluticasone propionate [Flonase Allergy Relief] 50 mcg/actuation spray,suspension 2 spray intranasal DAILY Rx Instructions: administer into each nostril glucosamine-chondroitin [Osteo Bi-Flex] 250-200 mg tablet 2 tab PO QPC sodium,potassium,mag sulfates [Suprep Bowel Prep Kit] 17.5-3.13-1.6 gram recon soln See Rx Instructions PO .COMPLEX Qty: 354 0RF Rx Instructions: DILUTE; drink full amount early evening before AND next morning at least 2 hr before procedure; follow w 32 oz. water PO metformin 500 mg tablet 500 mg PO DAILY simvastatin 20 MG tablet 20 mg PO QHS aspirin 81 MG tablet,chewable 81 mg PO DAILY@0800 oxybutynin chloride 10 mg tablet extended release 24hr 10 mg PO DAILY Label Comments: Take 1 tablet by mouth once daily. omeprazole 40 mg capsule,delayed release(DR/EC) 40 mg PO DAILY Label Comments: Take 1 capsule by mouth once daily. cholecalciferol (vitamin D3) 25 mcg (1,000 unit) Capsule 25 mcg PO DAILY capsaicin-methyl prateek-menthol Cream 1 applic TOPICAL TID PRN (Reason: ARTHRITIS) nitroglycerin 400 mcg/spray spray,non-aerosol 0.4 mg translingual Q3-5M PRN (Reason: Cardiac/Chest Pain) Qty: 4.9 1RF carvedilol 12.5 mg tablet 12.5 mg PO BID Qty: 180 4RF Rx Instructions: must administer with a meal/food Primary Care Provider: Mckenzie Bartlett Referrals: Mckenzie Bartlett MD [Primary Care Provider] - 3-5 Days Activity Restrictions/Additional Instructions: Follow-up with your primary care physician and perinatal tech if blood pressure continues to run low. Return to the ER if syncope or dizziness or falls or condition worsen anyway. Disposition Disposition: Home, Self Care
[2022-03-16 10:59] LABS: Absolute Lymphocyte Count 1.58 X10^3/uL (0.83-4.51); Absolute Neutrophil Count 4.9 X10^3/uL (2.0-7.7); Basophil# 0.05 X10^3/uL; Basophil% 0.7 % (0-1); Eosinophil# 0.16 X10^3/uL; Eosinophils% 2.2 % (0-5); Hematocrit 45.2 % (40-54); Hemoglobin 14.1 g/dL (13.0-16.5); Lymphocyte # 1.58 X10^3/ul (0.83-4.51); Lymphocyte % 21.3 % (19-41); Mean Corp Hgb Conc 31.2 g/dL (32-36); Mean Corpuscular Hgb 27.3 pg (27.0-32.0); Mean Corpuscular Volume 87.6 fL (80-94); Mean Platelet Vol. 10.1 fl (6.2-12.0); Monocyte# 0.68 X10^3/uL; Monocyte% 9.2 % (0-10); NRBC Flagged by Analyzer 0 % (0-5); Neutrophil # 4.94 X10^3/uL (2.7-7.7); Neutrophil % 66.3 % (47-70); Platelet Count 213 K/mm3 (150-450); RBC Distribution Width CV 13.5 % (11.6-14.6); RBC Distribution Width SD 43.5 fl (35.1-43.9); Red Blood Count 5.16 M/mm3 (4.6-6.2); White Blood Count 7.4 K/mm3 (4.4-11.0)
[2022-03-16 11:12] VITALS: BP 120/71; BP 120/75; BP 96/74; PULSE 71; PULSE 77; PULSE 84
[2022-03-16 11:14] LABS: BNP,B-Type NATRIURETIC PEPTIDE 48.2 pg/mL (0-100)
[2022-03-16 11:19] LABS: AST(SGOT) 11 U/L (15-37); Alanine Aminotransfer ALT/SGPT 21 U/L (16-61); Albumin, Serum 3.5 g/dL (3.2-5.0); Alkaline Phosphatase 75 U/L (45-117); BUN 22 mg/dL (7-18); Chloride 107 mmol/L (98-107); EST Glomerular Filtration Rate 80 mL/min (>60); Est Glom Filt Rate - Afr Amer 96 mL/min (>60); Estimated Creatinine Clearance 59.06 ml/min; Globulin 3.4 g/dL (2.2-4.2); Glucose 121 mg/dL (74-106); Protein, Total 6.9 g/dL (6.4-8.2); Sodium Level 141 mmol/L (136-145); Troponin-I HS 4 pg/mL (3.0-78.0)
[2022-03-16 11:20] LABS: Anion Gap 4 (5-15)
[2022-03-16] MEDS: 0.9% Normal Saline 1,000 ML 1000 ML IV (11:20)
[2022-03-16 11:29] LABS: Bacteria 0 SEEN /hpf (None Seen); Mucous, Urine 0 SEEN /hpf (<or=2+); Red Blood Cells-Urine 0 SEEN /hpf (0-5); Squamous Epithelial Cells - UA 0 SEEN /hpf (0-5); White Blood Cells 0 SEEN /hpf (0-5)
--- NOTE | 2022-03-16 11:30 | RAD_ITS ---
STUDY: X-RAY CHEST REASON FOR EXAM: Male, 67 years old. Weakness, TECHNIQUE: Single AP portable view of the chest. COMPARISON: Comparison is made with prior study 04/28/2021. FINDINGS: EKG electrode are seen. The lungs are clear and expanded. There is no demonstrated pleural abnormality. Normal size heart. Normal mediastinum and quique. Normal visualized pulmonary arteries. Normal visualized aortic arch and descending thoracic aorta. There are diffuse degenerative changes of the visualized thoracic spine. Normal visualized ribs, clavicles, and shoulders. There is no demonstrated abnormality of the visualized soft tissue structures of the upper abdomen. RAD/Chest 1 View (Portable) IMPRESSION: No acute abnormality is seen. Electronically Signed: Andrew Harris MD at 12:05 EST ,
[2022-03-16 11:32] LABS: Color, Urine Yellow (Yellow); Glucose, Dipstick Normal (Normal); Ketone-Dipstick Negative (Negative); Leukocyte Esterase-Dipstick Negative /ul (Negative); Nitrite-Dipstick Negative (Negative); Occult Blood-Urine Negative /ul (Negative); Protein-Dipstick Negative (Negative); Specific Gravity, Urine 1.015 (1.002-1.030); Urine Bilirubin Dipstick Negative (Negative); Urine Clarity Clear (Clear); Urine Urobilinogen Normal (Normal); Urine pH 6.5 (5.0 - 8.0)
[2022-03-16 13:15] VITALS: BP 114/68; PULSE 71; RESP 12; O2SAT 100
== END 2022-03-16 13:22 | disposition home or self-care (01) ==
PROVIDERS: Emergency Provider Emergency Medicine; PCP Internal Medicine; Visit Provider Emergency Medicine
DX: I95.9 Hypotension, unspecified (principal); I11.0 Hypertensive heart disease with heart failure; I50.9 Heart failure, unspecified; I43 Cardiomyopathy in diseases classified elsewhere; R53.1 Weakness; I25.10 Atherosclerotic heart disease of native coronary artery without angina pectoris; I25.2 Old myocardial infarction; Z79.899 Other long term (current) drug therapy; Z86.73 Personal history of transient ischemic attack (TIA), and cerebral infarction without residual deficits
CPT/HCPCS: 71045; 80053; 81001; 83880; 84484; 85025; 93005; 96360; 99285; J7030; A4216

== ENCOUNTER 2022-03-29 09:47 | Day surgery (SDC) | payer MEDICARE, MEDICAID, SELFPAY ==
[2022-03-29] VITALS (7 sets, daily range): BP systolic 97–126; BP diastolic 59–75; PULSE 57–68; RESP 16–18; TEMP 36.2–36.4; O2SAT 96–100; BMI 18.8
[2022-03-29] MEDS: Lactated Ringers 1,000 ML 15 ML IV (10:10)
--- NOTE | 2022-03-29 11:00 | COLBX_PTH ---
PATIENT: INNA ORTIZ LOC: EN U#:[id number] AGE/SX: 67/M ROOM: RE03/29/[address]: Dr. Diomedes Bey DO : 1955 BED: DIS: 03/29/2022 SPEC #: [id number] RECD: 03/29/22 11:50 STATUS: WILLY SANDY #: [id number] JUAN: 03/29/22 11:[address]: Diomedes Bey DEPT: SURGICAL PATHOLOGY RECD BY: Anderson Montiel ENTERED: 03/29/22 13:49 SP TYPE: COLON BX OT DR: Dr. Mckenzie Bartlett MD Tissues: A - Duodenum, NOS B - Rectum, NOS Procedures: Surgery Specimen Level IV HEADER OPERATION: Colonoscopy, E[place] [place] with biopsies PRE-OP DIAGNOSIS: Unintentional weight loss, epigastric pain, constipation TISSUE SUBMITTED: A ? Duodenum biopsy, B ? Rectal polyp biopsy MICROSCOPIC DIAGNOSIS A. Duodenum, biopsy: Fragments of duodenal mucosa with mild nonspecific chronic inflammation and Jose Luis gland hyperplasia. B. Rectal polyp, biopsy: Fragments of tubular adenoma. WINDY:ronel 03/30/2022 MICROSCOPIC DESCRIPTION Slides are reviewed. GROSS DESCRIPTION A - Received in fixative is one container labeled with the patient's name and designated duodenum biopsy. The specimen consists of two irregular fragments of light koenig soft tissue that in aggregate measure 0.6 x 0.3 x 0.1 cm. The specimen is totally submitted in one cassette. B - Received in fixative is one container labeled with the patient's name and designated rectal polyp biopsy. The specimen consists of multiple irregular fragments of light koenig soft tissue that in aggregate measure 1 x 0.3 x 0.1 cm. The specimen is totally submitted in one cassette. / WINDY:ronel 03/29/2022 TC:1 CPT: 71127 x2
--- NOTE | 2022-03-29 11:06 | PCM.HP.BLA ---
History and Physical Date of Admission: 03/29/22 67 M who presents to the office today accompanied by family members including his sister with whom he lives for unintentional weight loss.? He has lost 20 pounds in the last 9 months.? He has a very good appetite and eats full meals 3 times a day, plus snacks and protein drink.? He does sometimes point to the epigastrium as an area that hurts. He is scheduled for upper and lower endoscopy in February 2022.? He cannot tolerate the dulcolax/miralax prep per sister, can try SuPrep. No nausea or vomiting.? He has chronic constipation, she reports aloe vera is helping.? He takes Colace daily. 01/18/22 labs by PCP: CBC and CMP all normal 11/2021 Increased total fecal fats; stool calprotectin 121 (normal 0-120); normal pancreatic elastase 10/2021 normal sed rate, normal LDH, normal CK, normal CRP, normal amylase, normal lipase, normal aldolase, normal CEA, normal CA 19-9, normal PSA, normal immunoglobulins, normal SPEP with DOMINICK, normal JESUSITA comprehensive, negative celiac BP 90/50s recently at home, sister is concerned about his low BP 11/2021 RUQ US neg ROS Const Constitutional: Positive for fatigue, weakness and weight change ENT ENT: Positive for difficulty swallowing Gastro GI: Positive for abdominal pain, bloating, constipation, difficulty swallowing and excessive flatus; No belching, change in bowel habits, change in stool character, coffee ground emesis, cramping, diarrhea, heartburn, feeling full early, incontinent of stools, Vomiting blood/hematemesis, Blood in stool, loose stools, Black,tarry stools, nausea/dyspepsia, pain with swallowing, vomiting or other Musc Musculoskeletal: Positive for abnormal gait, back pain, muscle weakness, stiffness and Arthritis; No joint pain Skin Skin: No yellowing of the eye or itchy eyes Neuro Neurology: Positive for abnormal gait and weakness Psych Psychiatric: Positive for anxiety and Positive for depression Endo Endocrine: Positive for fatigue and weight change Aller/Imm Allergy/Immunologic: No itchy eyes Tyler/Lymp Hematologic/Lymphatic: No easy bleeding or easy bruising Exam Const General: cooperative and comfortable Nutritional Appearance: thin Orientation: alert and awake Eyes Sclera: sclerae normal Resp Effort & Inspection: normal respiratory effort GI Inspection: normal to inspection Palpation: soft, no hepatosplenomegaly, no masses and nontender Quality Reporting Tobacco Screening (CMS 138) Smoking Status: Never smoker Assessment and Plan Assessment and Plan (1) Unintentional weight loss: ?Status:?Acute ?Plan: 67-year-old male with developmental delay who is accompanied by his sister has unintentional weight loss despite good appetite and good intake, epigastric pain, constipation.? His abd US was neg, will get CT abd pel w/ oral and IV to eval abd pain and unintentional weight loss. He is scheduled for EGD and colonoscopy next month, SuPrep prescribed. (2) Epigastric pain: ?Status:?Acute ?Plan: As above (3) Constipation: ?Status:?Chronic ?Plan: As above ? ? ? Orders: Orders Abdomen/Pelvis WITH Contrast Today R10.9 - Unspecified abdominal pain, R63.4 - Abnormal weight loss ? Medications: New sodium,potassium,mag sulfates 17.5-3.13-1.6 gram (Suprep Bowel Prep Kit) ?DILUTE; drink full amount early evening before AND next morning at least 2 hr before procedure; follow w 32 oz. water PO 354 mL 0RF ? ? I have examined the patient and the H&P has been reviewed. There are no clinical changes since date of exam.
[2022-03-29 11:40] LABS: Bedside Glucose 101 mg/dL (74-106)
--- NOTE | 2022-03-29 11:48 | OP.EGD_ITS ---
Patient Name: Hi White Procedure Date: 03/29/2022 11:02 AM Date of : 1955 Age: 67 Procedure: Upper GI endoscopy Indications: Functional Dyspepsia, Weight loss Providers: Diomedes Bey DO Medicines: Monitored Anesthesia Care Patient Profile: This is a 67 year old male. Refer to note in patient chart for documentation of history and physical. Patient has symptoms of chronic dyspepsia and chronic vomiting. Complications: No immediate complications. Procedure: Pre-Anesthesia Assessment: - Prior to the procedure, a History and Physical was performed, and patient medications and allergies were reviewed. The risks and benefits of the procedure and the sedation options and risks were discussed with the patient. All questions were answered and informed consent was obtained. Patient identification and proposed procedure were verified by the physician. Mental Status Examination: alert and oriented. Airway Examination: normal oropharyngeal airway and neck mobility. Respiratory Examination: clear to auscultation. CV Examination: normal. Prophylactic Antibiotics: The patient does not require prophylactic antibiotics. Prior Anticoagulants: The patient has taken no previous anticoagulant or antiplatelet agents. After reviewing the risks and benefits, the patient was deemed in satisfactory condition to undergo the procedure. The anesthesia plan was to use monitored anesthesia care (MAC). Immediately prior to administration of medications, the patient was re-assessed for adequacy to receive sedatives. The heart rate, respiratory rate, oxygen saturations, blood pressure, adequacy of pulmonary ventilation, and response to care were monitored throughout the procedure. The physical status of the patient was re-assessed after the procedure. After obtaining informed consent, the endoscope was passed under direct vision. Throughout the procedure, the patient's blood pressure, pulse, and oxygen saturations were monitored continuously. The Colonoscope was introduced through the mouth, and advanced to the second part of duodenum. The upper GI endoscopy was accomplished without difficulty. The patient tolerated the procedure well. Scope In: 11:14:38 AM Scope Out: 11:18:13 AM Total Procedure Duration Time 0 hours 3 minutes 35 seconds Findings: The Z-line was irregular and was found 37 cm from the incisors Biopsies were taken with a cold forceps for histology. Verification of patient identification for the specimen was done. Estimated blood loss was minimal. The entire examined stomach was normal. The second portion of the duodenum was normal. Biopsies were taken with a cold forceps for histology. Verification of patient identification for the specimen was done. Estimated blood loss was minimal. Impression: - Z-line irregular, 37 cm from the incisors. Biopsied. - Normal stomach. - Normal second portion of the duodenum. Biopsied. Recommendation: - Discharge patient to home. - Resume previous diet. - Continue present medications. - Await pathology results. Procedure Code(s): --- Professional --- 38695, Esophagogastroduodenoscopy, flexible, transoral; with biopsy, single or multiple CPT copyright 2017 [employer]. All rights reserved. The codes documented in this report are preliminary and upon truck cleaner review may be revised to meet current compliance requirements. Diomedes Bey DO 03/29/2022 11:48:27 AM This report has been signed electronically. Number of Addenda: 0 Note Initiated On: 03/29/2022 11:02 AM
--- NOTE | 2022-03-29 11:49 | OP.CCLET_ITS ---
03/29/2022 Mckenzie Bartlett [address] [place] [address] Re : Upper GI endoscopy procedure for Hi Marisagurjit Dear Dr. Bartlett This procedure was performed on Tuesday, March 29, 2022. My impressions and recommendations are as follows: Impressions : - Z-line irregular, 37 cm from the incisors. Biopsied. - Normal stomach. - Normal second portion of the duodenum. Biopsied. Recommendations : - Discharge patient to home. - Resume previous diet. - Continue present medications. - Await pathology results. My findings are described in the full procedure note, which is enclosed. If I can be of further assistance, please feel free to contact me at . Sincerely, Diomedes Bey, 03/29/2022 11:48:27 AM This report has been signed electronically.
--- NOTE | 2022-03-29 11:53 | OP.COLON_ITS ---
Patient Name: Hi White Procedure Date: 03/29/2022 11:18 AM Date of : 1955 Age: 67 Procedure: Colonoscopy Indications: Screening for colorectal malignant neoplasm Providers: Diomedes Bey DO Medicines: Monitored Anesthesia Care Patient Profile: This is a 67 year old male. Refer to note in patient chart for documentation of history and physical. Patient has symptoms of chronic dyspepsia and chronic vomiting. Last Colonoscopy: none. The patient's first colonoscopy is today. Complications: No immediate complications. Procedure: Pre-Anesthesia Assessment: - Prior to the procedure, a History and Physical was performed, and patient medications and allergies were reviewed. The risks and benefits of the procedure and the sedation options and risks were discussed with the patient. All questions were answered and informed consent was obtained. Patient identification and proposed procedure were verified by the physician. Mental Status Examination: alert and oriented. Airway Examination: normal oropharyngeal airway and neck mobility. Respiratory Examination: clear to auscultation. CV Examination: normal. Prophylactic Antibiotics: The patient does not require prophylactic antibiotics. Prior Anticoagulants: The patient has taken no previous anticoagulant or antiplatelet agents. After reviewing the risks and benefits, the patient was deemed in satisfactory condition to undergo the procedure. The anesthesia plan was to use monitored anesthesia care (MAC). Immediately prior to administration of medications, the patient was re-assessed for adequacy to receive sedatives. The heart rate, respiratory rate, oxygen saturations, blood pressure, adequacy of pulmonary ventilation, and response to care were monitored throughout the procedure. The physical status of the patient was re-assessed after the procedure. After I obtained informed consent, the scope was passed under direct vision. Throughout the procedure, the patient's blood pressure, pulse, and oxygen saturations were monitored continuously. The Colonoscope was introduced through the anus and advanced to the terminal ileum. The colonoscopy was performed without difficulty. The patient tolerated the procedure well. The quality of the bowel preparation was good. Scope In: 11:21:10 AM Scope Withdrawal Time 0 hours 9 minutes 38 seconds Scope Out: 11:37:41 AM Total Procedure Duration Time 0 hours 16 minutes 31 seconds Findings: The perianal and digital rectal examinations were normal. The entire examined colon appeared normal on direct and retroflexion views. A 5 mm polyp was found in the rectum. The polyp was sessile. The polyp was removed with a cold snare. Resection and retrieval were complete. Verification of patient identification for the specimen was done. Estimated blood loss was minimal. Impression: - The entire examined colon is normal on direct and retroflexion views. Recommendation: - Discharge patient to home. - Resume previous diet. - Continue present medications. - Await pathology results. - Repeat colonoscopy in 5 years for surveillance. Procedure Code(s): --- Professional --- 98633, Colonoscopy, flexible; with removal of tumor(s), polyp(s), or other lesion(s) by snare technique CPT copyright 2017 [employer]. All rights reserved. The codes documented in this report are preliminary and upon pattern gater review may be revised to meet current compliance requirements. Diomedes Bey DO 03/29/2022 11:52:45 AM This report has been signed electronically. Number of Addenda: 0 Note Initiated On: 03/29/2022 11:18 AM
--- NOTE | 2022-03-29 11:54 | OP.CCLET_ITS ---
03/29/2022 Mckenzie Bartlett [address] [place] [address] Re : Colonoscopy procedure for Hi White Dear Dr. Bartlett This procedure was performed on Tuesday, March 29, 2022. My impressions and recommendations are as follows: Impressions : - The entire examined colon is normal on direct and retroflexion views. Recommendations : - Discharge patient to home. - Resume previous diet. - Continue present medications. - Await pathology results. - Repeat colonoscopy in 5 years for surveillance. My findings are described in the full procedure note, which is enclosed. If I can be of further assistance, please feel free to contact me at . Sincerely, Diomedes Friend, 03/29/2022 11:52:45 AM This report has been signed electronically.
== END 2022-03-29 12:56 | disposition home or self-care (01) ==
LOC: EN 09:49 → AC 09:50
PROVIDERS: PCP Internal Medicine; Referring Provider Internal Medicine; Visit Provider Internal Medicine Gastroenterology
PROC: 0DJD8ZZ Inspection of Lower Intestinal Tract, Via Natural or Artificial Opening Endoscopic (ICD-10-PCS; CPT 45378; principal; 2022-03-29 10:55)
DX: Z12.11 Encounter for screening for malignant neoplasm of colon (principal); E46 Unspecified protein-calorie malnutrition; I11.0 Hypertensive heart disease with heart failure; I50.9 Heart failure, unspecified; E11.9 Type 2 diabetes mellitus without complications; D12.8 Benign neoplasm of rectum; K30 Functional dyspepsia; K31.89 Other diseases of stomach and duodenum; K59.09 Other constipation; R63.4 Abnormal weight loss; I95.9 Hypotension, unspecified; I25.2 Old myocardial infarction; E78.00 Pure hypercholesterolemia, unspecified; E55.9 Vitamin D deficiency, unspecified; Z68.1 Body mass index [BMI] 19.9 or less, adult; Z79.82 Long term (current) use of aspirin; Z79.84 Long term (current) use of oral hypoglycemic drugs; Z79.899 Other long term (current) drug therapy; Z86.73 Personal history of transient ischemic attack (TIA), and cerebral infarction without residual deficits
CPT/HCPCS: 45385; 43239; 82962; 88305; J7120; J2405

== ENCOUNTER 2022-06-26 18:34 | Emergency (ER) | payer MEDICARE, MEDICAID, SELFPAY ==
[2022-06-26 18:35] VITALS: BP 143/86; PULSE 81; RESP 16; TEMP 36.2; O2SAT 100; BMI 17.9
[2022-06-26 18:54] VITALS: BP 136/68; PULSE 85; RESP 25; O2SAT 100
--- NOTE | 2022-06-26 18:59 | CT_ITS ---
INDICATION: altered mental status EXAMINATION: CT BRAIN - CT Head or Brain W/O Contrast Injection TECHNIQUE: Multiple axial images were obtained of the head without intravenous contrast. A radiation dose optimization technique was used for this scan. IV Contrast dosage and agent: None. COMPARISON: 10/15/2020 FINDINGS: BRAIN PARENCHYMA: No intra- or extra-axial hemorrhage. No acute territorial infarction. Stable right frontal encephalomalacic area from chronic ischemia. Stable chronic lacunar infarction left basal ganglia. No intracranial mass or mass effect. Posterior fossa structures are unremarkable. CSF SPACES: Stable. No hydrocephalus. Basal cisterns are patent. CALVARIUM, SKULL BASE, PARANASAL SINUSES AND MASTOID AIR CELLS: Clear. No discrete lytic or blastic abnormalities. ORBITS: Both globes, extraocular muscles, optic nerves and retrobulbar fat appear unremarkable. CT/Brain/Head without Contrast IMPRESSION: No acute intracranial findings. Electronically Signed: uRssel Severino MD at 19:50 EDT ,
--- NOTE | 2022-06-26 19:00 | EX.ED.DYSGE1 ---
HPI History of Present Illness Chief Complaint: Syncope Narrative Narrative: Patient is nonverbal, most of the history is provided by his sister constantino ESCALERA and her significant other who care for him at home. Over the past 2 or 3 days, he has had 3 syncopal episodes, all of which have occurred while he was on the toilet. Some of them he appeared to be straining, others not. He is a diabetic, but they have not checked his blood pressure or his blood sugar around the time of any of these episodes, the last of which happened today. They also state he has been walking but staggering sometimes and seeming weak, decreased activity, and cold lately. Family notes that 1 day his leg was blue he was so cold but this has been going on for weeks, they are putting compression stockings on him to increase his circulation due to the cold. No fevers or chills. He has been drinking fluids that they have been pushing, and they have been pushing quite a bit of fluids, 84 ounces per day or more. Patient cannot provide history, this is baseline for him, and they state neurologically he is at his baseline at this time of evaluation. 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 TBI (traumatic brain injury) Type 2 diabetes mellitus Urinary incontinence Home Medications aspirin 81 mg chewable tablet 81 mg PO DAILY@0800 05/30/16 [History Last Taken 03/27/22] simvastatin 20 mg tablet 20 mg PO QHS 05/30/16 [History Last Taken 04/27/21] nitroglycerin 400 mcg/spray translingual 0.4 mg translingual Q3-5M PRN Cardiac/Chest Pain #4.9 grams 10/15/18 [Rx Last Taken Unknown] capsaicin-methyl salicylate-menthol topical cream 1 applic topical TID PRN ARTHRITIS 04/28/21 [History Last Taken 04/27/21] cholecalciferol (vitamin D3) 25 mcg (1,000 unit) capsule 25 mcg PO DAILY 04/28/21 [History Last Taken 04/27/21] omeprazole 40 mg capsule,delayed release 40 mg PO DAILY GERD 04/28/21 [History Last Taken 04/28/21] oxybutynin chloride 10 mg tablet,extended release 24 hr 10 mg PO DAILY BLADDER 04/28/21 [History Last Taken 04/28/21] cyanocobalamin (vitamin B-12) 1,000 mcg capsule 1,000 mcg PO DAILY 09/29/21 [History Last Taken Unknown] fluticasone propionate 50 mcg/actuation nasal spray,suspension (Flonase Allergy Relief) 2 spray intranasal DAILY 09/29/21 [History Last Taken Unknown] glucosamine-chondroitin 250 mg-200 mg tablet (Osteo Bi-Flex) 2 tab PO QPC 09/29/21 [History Last Taken Unknown] docusate sodium 50 mg capsule 50 mg PO BID 03/27/22 [History Last Taken Unknown] multivitamin (Daily Multi-Vitamin tablet) 1 tab PO DAILY 04/05/22 [History Last Taken Unknown] Allergy/AdvReac Type Severity Reaction Status Date / Time cefdinir Allergy Rash Verified 06/26/22 18:38 nitrofurantoin Allergy Rash Verified 06/26/22 18:38 [From Macrobid] BANDAR Inhibitors AdvReac Severe hypotension, Verified 06/26/22 18:38 cough Family History (Reviewed 04/12/22 @ 15:02 by Mahogany Javier SR. OPERATIONS MANAGER, SR. OPERATIONS MANAGER-C) Mother CAD (coronary artery disease) Diabetes Hypertension Father Myocardial infarction, Onset Age: 68 Surgical History Hx of inguinal hernia repair Social History Smoking Status: Never smoker alcohol intake: never substance use type: does not use caffeine: Yes Type: carbonated beverages ROS ROS ED Review of Systems ROS Unobtainable: due to mental condition EXAM Physical Exam Const Vital Signs: 06/26/22 18:35 06/26/22 18:54 06/26/22 18:55 Temperature 97.2 F L Temperature Source Temporal Pulse Rate 81 85 Pulse Rate [Lying] Pulse Rate [Sitting (for 1 minute prior to obtaining)] Pulse Rate [Standing (for 1 minute prior to obtaining)] Respiratory Rate 16 25 H Respiratory Effort Normal Respiratory Pattern Normal Blood Pressure 143/86 H 136/68 H Blood Pressure [Lying] Blood Pressure [Sitting (for 1 minute prior to obtaining)] Blood Pressure [Standing (for 1 minute prior to obtaining)] Blood Pressure Mean 105 90 Blood Pressure Mean [Lying] Blood Pressure Mean [Sitting (for 1 minute prior to obtaining)] Blood Pressure Mean [Standing (for 1 minute prior to obtaining)] Pulse Ox 100 100 Oxygen Delivery Method Room Air Room Air 06/26/22 20:41 06/26/22 22:03 06/26/22 22:04 Temperature Temperature Source Pulse Rate 82 75 Pulse Rate [Lying] 78 Pulse Rate [Sitting (for 1 minute prior to obtaining)] 77 Pulse Rate [Standing (for 1 minute prior to obtaining)] 75 Respiratory Rate 28 H 17 Respiratory Effort Respiratory Pattern Blood Pressure 109/63 108/60 Blood Pressure [Lying] 101/67 Blood Pressure [Sitting (for 1 minute prior to obtaining)] 110/66 Blood Pressure [Standing (for 1 minute prior to obtaining)] 108/60 Blood Pressure Mean 78 76 Blood Pressure Mean [Lying] 78 Blood Pressure Mean [Sitting (for 1 minute prior to obtaining)] 80 Blood Pressure Mean [Standing (for 1 minute prior to obtaining)] 76 Pulse Ox 96 99 Oxygen Delivery Method Room Air Room Air Positive well nourished and well developed General Appearance ED: well developed and NAD HEENT Reports moist mucous membranes normocephalic and atraumatic Eyes PERRL and EOMs intact bilaterally Neck full ROM and supple Resp normal respiratory effort and clear to auscultation bilaterally Cardio regular rate, regular rhythm and no murmurs Rate: Negative for tachycardic GI non-tender and non-distended Auscultation: normoactive bowel sounds Palpation: soft Back/Spine no CVA tenderness General Back: other FROM Extremity normal to inspection General Extremety ED: Negative for edema, pulses abnormal or tenderness General Extremity: Negative for edema or pulses abnormal Neuro CN's II-XII intact bilaterally and no sensory deficits noted Neuro Narrative: Nonverbal. At baseline per family. Does follow some commands, does a better job following commands for family that he does for me. Sensorium / Orientation: awake and alert Motor Exam: strength 5/5 throughout Skin no rashes or lesions noted and no wounds MDM MDM MDM Narrative Medical decision making narrative: Patient's history is consistent with vasovagal syncopal episodes, since every single 1 of these episodes has occurred on the toilet. However, as family states, he does not usually pass out when he has to go to the bathroom prior to this weekend. Therefore I obtained a work-up including a CT of the head given that he has a history of a cerebral aneurysm and had some issues walking recently, those images appear to show no acute hemorrhage or asymmetry, radiology in agreement and I agree with their interpretation; differential also includes dehydration, metabolic disturbance, anemia, primary cardiac etiology, infection including pneumonia or urinary tract infection. Basically all of the stuff is unremarkable except for some prerenal azotemia, and we did give him a liter of fluids empirically while we were awaiting the work-up. His vital signs remained stable. I had nursing do orthostatics after the fluids were done. They are normal/negative. Reassured, I will discharge them home to encourage fluids and close outpatient follow-up especially if he continues to have episodes but I do not think he needs to be admitted for this at this time, as I do not classify this as a high risk syncope. 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 He is not in acute congestive heart failure right now nor is he having any concerning cardiac findings on ancillary testing nor dysrhythmias here. As I discussed with family, since each of these episodes occurred while he was on the toilet, I do think this is reasonable to have reevaluated as an outpatient. History & Record Review Additional record(s) reviewed:: Prior outpatient record (cardiology visit 01/2019, echo 2019) Lab Data Attestation: I reviewed the patient's lab results. Labs: Laboratory Results - last 24 hr 06/26/22 06/26/22 06/26/22 19:06 19:06 19:30 WBC 6.9 RBC 5.11 Hgb 14.2 Hct 44.7 MCV 87.5 MCH 27.8 MCHC 31.8 L RDW Std Deviation 44.6 H RDW Coeff of Johnie 13.8 Plt Count 195 MPV 10.7 Immature Gran % (Auto) 0.300 Neut % (Auto) 46.7 L Lymph % (Auto) 38.9 [place] % (Auto) 9.6 Eos % (Auto) 3.5 Baso % (Auto) 1.0 Absolute Neuts (auto) 3.2 Absolute Lymphs (auto) 2.68 Nucleated RBC % 0 Sodium 143 Potassium 4.0 Chloride 107 Carbon Dioxide 30.0 Anion Gap 6 BUN 19 H Creatinine 1.06 Estim Creat Clear Calc 54.29 Est GFR (MDRD) Af Amer 90 Est GFR (MDRD) Non-Af 74 BUN/Creatinine Ratio 17.9 Glucose 93 Calcium 9.0 Total Bilirubin 0.30 AST 14 L ALT 19 Alkaline Phosphatase 72 Troponin I High Sens 6 Total Protein 6.8 Albumin 3.5 Globulin 3.3 Albumin/Globulin Ratio 1.1 TSH 3.30 Urine Color Yellow Urine Clarity Sl. Cloudy Urine pH 7.0 Ur Specific [place] 1.010 Urine Protein Negative Urine Glucose (UA) Normal Urine Ketones Negative Urine Occult Blood 10 H Urine Nitrite Negative Urine Bilirubin Negative Urine Urobilinogen Normal Ur Leukocyte Esterase Negative Urine RBC 0 SEEN Urine WBC 0 SEEN Ur Squamous Epith Cells 0 SEEN Urine Bacteria 0 SEEN Urine Mucus 0 SEEN Radiography Chest X-Ray - ED: 1 View, Read by ED Physician and No Infiltrates Diagnostic Testing: Clinical Impression(s) from Imaging Studies Brain CT 06/26/22 18:59 IMPRESSION: No acute intracranial findings. Electronically Signed: Russel Severino MD at 19:50 EDT Reading Location ID and State: [facility] / [place] Tel , Service support , Chest X-Ray 06/26/22 19:20 IMPRESSION: No radiographic evidence of acute cardiopulmonary disease. Electronically Signed: Russel Severino MD at 19:52 EDT , Rhythm Strip Rhythm Strip: Sinus Rhythm Rate: 80 Ectopy: None EKG Initial EKG: Attestation: I personally reviewed and interpreted this EKG as follows: Interpretation: Sinus Rhythm and No Acute Injury Pattern Comments: leftward axis Prior EKG tracings: available for review Prior: Unchanged Discharge Plan Triage Chief Complaint: Syncope ED Provider: Ruperto Baker Dx/Rx/DC Orders Clinical Impression: Mild dehydration, Vasovagal syncope Instructions: ED Fainting, Vagal Reaction Prescriptions: No Action cyanocobalamin (vitamin B-12) 1,000 mcg capsule 1,000 mcg PO DAILY fluticasone propionate [Flonase Allergy Relief] 50 mcg/actuation spray,suspension 2 spray intranasal DAILY Rx Instructions: administer into each nostril glucosamine-chondroitin [Osteo Bi-Flex] 250-200 mg tablet 2 tab PO QPC multivitamin [Daily Multi-Vitamin] Tablet 1 tab PO DAILY simvastatin 20 MG tablet 20 mg PO QHS aspirin 81 MG tablet,chewable 81 mg PO DAILY@0800 oxybutynin chloride 10 mg tablet extended release 24hr 10 mg PO DAILY Label Comments: Take 1 tablet by mouth once daily. omeprazole 40 mg capsule,delayed release(DR/EC) 40 mg PO DAILY Label Comments: Take 1 capsule by mouth once daily. cholecalciferol (vitamin D3) 25 mcg (1,000 unit) Capsule 25 mcg PO DAILY capsaicin-methyl prateek-menthol Cream 1 applic TOPICAL TID PRN (Reason: ARTHRITIS) Colace 50 mg Capsule 50 mg PO BID nitroglycerin 400 mcg/spray spray,non-aerosol 0.4 mg translingual Q3-5M PRN (Reason: Cardiac/Chest Pain) Qty: 4.9 1RF Primary Care Provider: Mckenzie Bartlett Referrals: Mckenzie Bartlett MD [Primary Care Provider] - 1-2 Days if not improving Activity Restrictions/Additional Instructions: Encourage fluids Disposition Disposition: Home, Self Care
[2022-06-26] MEDS: 0.9% Normal Saline 1,000 ML 1000 ML IV (19:09)
[2022-06-26 19:17] LABS: Absolute Lymphocyte Count 2.68 X10^3/uL (0.83-4.51); Absolute Neutrophil Count 3.2 X10^3/uL (2.0-7.7); Basophil# 0.07 X10^3/uL; Eosinophil# 0.24 X10^3/uL; Eosinophils% 3.5 % (0-5); Hematocrit 44.7 % (40-54); Hemoglobin 14.2 g/dL (13.0-16.5); Lymphocyte # 2.68 X10^3/ul (0.83-4.51); Lymphocyte % 38.9 % (19-41); Mean Corp Hgb Conc 31.8 g/dL (32-36); Mean Corpuscular Hgb 27.8 pg (27.0-32.0); Mean Corpuscular Volume 87.5 fL (80-94); Mean Platelet Vol. 10.7 fl (6.2-12.0); Monocyte# 0.66 X10^3/uL; Monocyte% 9.6 % (0-10); NRBC Flagged by Analyzer 0 % (0-5); Neutrophil # 3.22 X10^3/uL (2.7-7.7); Neutrophil % 46.7 % (47-70); Platelet Count 195 K/mm3 (150-450); RBC Distribution Width CV 13.8 % (11.6-14.6); RBC Distribution Width SD 44.6 fl (35.1-43.9); Red Blood Count 5.11 M/mm3 (4.6-6.2); White Blood Count 6.9 K/mm3 (4.4-11.0)
--- NOTE | 2022-06-26 19:20 | RAD_ITS ---
INDICATION: weakness EXAMINATION/TECHNIQUE: X-RAY - XR Chest 2 Views COMPARISON: 03/16/2022 FINDINGS: LINES/DEVICES: None. LUNGS: No consolidation, edema or effusion. No pneumothorax. MEDIASTINUM AND CARDIOVASCULAR STRUCTURES: Cardiac silhouette not enlarged. Central airways and mediastinal contour are unremarkable. BONES AND SOFT TISSUES: No acute changes. RAD/Chest PA and Lateral IMPRESSION: No radiographic evidence of acute cardiopulmonary disease. Electronically Signed: Russel Severino MD at 19:52 EDT ,
[2022-06-26 19:48] LABS: ALB/GLOB Ratio 1.1 RATIO (0.9-2.4); AST(SGOT) 14 U/L (15-37); Alanine Aminotransfer ALT/SGPT 19 U/L (16-61); Albumin, Serum 3.5 g/dL (3.2-5.0); Alkaline Phosphatase 72 U/L (45-117); Anion Gap 6 (5-15); BUN 19 mg/dL (7-18); BUN/Creat Ratio 17.9 RATIO (10-20); Chloride 107 mmol/L (98-107); Creatinine, Serum 1.06 mg/dL (0.70-1.30); EST Glomerular Filtration Rate 74 mL/min (>60); Est Glom Filt Rate - Afr Amer 90 mL/min (>60); Estimated Creatinine Clearance 54.29 ml/min; Globulin 3.3 g/dL (2.2-4.2); Glucose 93 mg/dL (74-106); Protein, Total 6.8 g/dL (6.4-8.2); Sodium Level 143 mmol/L (136-145); Troponin-I HS 6 pg/mL (3.0-78.0)
[2022-06-26 19:51] LABS: Bacteria 0 SEEN /hpf (None Seen); Mucous, Urine 0 SEEN /hpf (<or=2+); Red Blood Cells-Urine 0 SEEN /hpf (0-5); Squamous Epithelial Cells - UA 0 SEEN /hpf (0-5); White Blood Cells 0 SEEN /hpf (0-5)
[2022-06-26 19:57] LABS: Color, Urine Yellow (Yellow); Glucose, Dipstick Normal (Normal); Ketone-Dipstick Negative (Negative); Leukocyte Esterase-Dipstick Negative /ul (Negative); Nitrite-Dipstick Negative (Negative); Occult Blood-Urine 10 /ul (Negative); Protein-Dipstick Negative (Negative); Urine Bilirubin Dipstick Negative (Negative); Urine Clarity Sl. Cloudy (Clear); Urine Urobilinogen Normal (Normal)
[2022-06-26 20:41] VITALS: BP 109/63; PULSE 82; RESP 28; O2SAT 96
[2022-06-26 22:03] VITALS: BP 101/67; BP 108/60; BP 110/66; PULSE 75; PULSE 77; PULSE 78
[2022-06-26 22:04] VITALS: BP 108/60; PULSE 75; RESP 17; O2SAT 99
[2022-06-26 22:39] VITALS: BP 118/62; PULSE 75; RESP 22; O2SAT 99
== END 2022-06-26 22:51 | disposition home or self-care (01) ==
PROVIDERS: Emergency Provider Emergency Medicine; PCP Internal Medicine; Visit Provider Emergency Medicine
DX: E86.0 Dehydration (principal); I50.9 Heart failure, unspecified; R55 Syncope and collapse; I25.10 Atherosclerotic heart disease of native coronary artery without angina pectoris; I25.2 Old myocardial infarction; Z86.73 Personal history of transient ischemic attack (TIA), and cerebral infarction without residual deficits
CPT/HCPCS: 70450; 71046; 80053; 81001; 84443; 84484; 85025; 93005; 96360; 96361; 99285; J7030; P9612; A4216

== ENCOUNTER → 2022-06-28 | Outpatient (CLI) | payer MEDICARE, MEDICAID, SELFPAY ==
[2022-06-30 15:08] LABS: Gastrin, Serum 433 pg/mL (0-115)
== END | disposition home or self-care (01) ==
LOC: LAB 15:49
PROVIDERS: PCP Internal Medicine; Referring Provider Nurse Practitioner Adult Health; Visit Provider Nurse Practitioner Adult Health
DX: Q40.3 Congenital malformation of stomach, unspecified (principal)
CPT/HCPCS: 36415; 82941

== ENCOUNTER → 2022-09-18 | Outpatient (CLI) | payer MEDICARE, MEDICAID, SELFPAY | END | disposition home or self-care (01) | LOC: SL 18:09 | PROVIDERS: PCP Internal Medicine; Visit Provider Psychiatry & Neurology Sleep Medicine | DX: R40.0 Somnolence (principal); G47.33 Obstructive sleep apnea (adult) (pediatric) | CPT/HCPCS: 95810 ==

== ENCOUNTER → 2022-09-19 | Outpatient (CLI) | payer MEDICARE, MEDICAID, SELFPAY | END | disposition home or self-care (01) | LOC: PSN 07:49 | PROVIDERS: PCP Internal Medicine; Referring Provider Psychiatry & Neurology Sleep Medicine; Visit Provider Psychiatry & Neurology Sleep Medicine | DX: R55 Syncope and collapse (principal); Z87.820 Personal history of traumatic brain injury; Z86.69 Personal history of other diseases of the nervous system and sense organs | CPT/HCPCS: 95819 ==

== ENCOUNTER → 2023-04-02 | Outpatient (CLI) | payer MEDICARE, MEDICAID, SELFPAY ==
[2023-04-02 16:39] LABS: Erythrocyte Sedimentation Rate 2 mm/hr (0-20)
[2023-04-02 16:54] LABS: CRP < 2.90 mg/L (0.0-3.0)
[2023-04-04 14:09] LABS: PSA, Free % 22.6 % (.)
== END | disposition home or self-care (01) ==
PROVIDERS: PCP Internal Medicine; Referring Provider Internal Medicine Gastroenterology; Visit Provider Internal Medicine Gastroenterology
DX: N40.0 Benign prostatic hyperplasia without lower urinary tract symptoms (principal); K59.00 Constipation, unspecified
CPT/HCPCS: 36415; 84153; 84154; 85652; 86140

== ENCOUNTER → 2023-04-11 | Outpatient (CLI) | payer MEDICARE, MEDICAID, SELFPAY ==
--- NOTE | 2023-04-11 13:50 | CT_ITS ---
STUDY: CT ABDOMEN AND PELVIS WITH CONTRAST REASON FOR EXAM: Male, 68 years old. Abdominal pain and weight loss. Bilateral pelvic swelling and inguinal hernia repairs. RADIATION DOSAGE (If Supplied By Facility): CTDIvol = ( 11.48 ) mGy, DLP = ( 385.96 ) mGycm TECHNIQUE: Transaxial images were obtained from the dome of the diaphragm to the symphysis pubis with oral contrast. Oral and amp;amp; IV Readi-CAT and amp;amp; 100mL Isovue-300 was administered. Sagittal and coronal images were reconstructed. Individualized dose optimization techniques were used for this CT. COMPARISON: Comparison is made with prior study dated March 06, 2022. FINDINGS: The visualized lung bases are unremarkable. Coronary artery calcification. Normal liver. Normal gallbladder and extrahepatic biliary system. Normal spleen. Normal pancreas. Normal bilateral adrenal glands. Stable 5.5 cm x 6.2 cm cyst in the lateral inferior pole of the right kidney. Stable small left renal cysts. Normal visualized stomach. Normal small intestine. Large amount of fecal material is seen in the colon. The appendix is visualized and appears normal. Normal abdominal aorta. Normal inferior vena cava. Normal retroperitoneum. Normal urinary bladder. Heterogeneous enlargement of the prostate. The prostate measures 3.6 cm x 4.7 cm. Calcifications are seen within the prostate. There is indentation of the bladder base. Prior lower anterior abdominal wall hernia repair extending into the left inguinal region. There are degenerative changes of the visualized lumbar spine. Mild levoscoliosis. CT/Abdomen/Pelvis WITH Contrast IMPRESSION: Stable examination. Heterogeneous enlargement of the prostate with nodular indentation of the bladder base. Stable right renal cyst. Electronically Signed: Andrew Harris MD at 14:22 EST ,
[2023-04-11 14:18] LABS: CREATININE FINGERSTICK < 1.0 mg/dL (0.70-1.30); EGFR FINGERSTICK > 60.0000 mL/min (>60)
--- OUTSIDE RECORDS SUMMARY | 2023-04-11 17:40 | XMS RPT_ITS | CCD ---
Author Name Unknown Address [address] [place] [address] Organization [facility] Care Team Providers Care Latrine Cleaner Name Role Phone SARAHI CLARKE Unavailable Unavailable SARAHI CLARKE Unavailable Unavailable Nehemiah Thomas Unavailable Unavailable SARAHI CLARKE Unavailable Unavailable SARAHI CLARKE Unavailable Unavailable Nehemiah Thomas Unavailable Unavailable Nehemiah Thomas MD Primary Care Provider Pelon, Kj S Unavailable Nehemiah Thomas MD Primary Care Provider Pelon, Eastham S Unavailable Pelon, Kj S Unavailable Pelon, Kj S Unavailable Eliza Zamora MD Primary Care Provider Pelon, Kj S Unavailable Pelon GOODSON, Kj S Unavailable Yuki TORRES, Jean Carlos Unavailable MAL CARPIO JR Attending Unavailable TALAMPAS, ELIZA D Primary Care Unavailable SLEIK, KHALED MELOUD Referring Unavailable SLEIK, KHALED MELOUD Attending Unavailable TALAMPAS, ELIZA D Primary Care Unavailable TYRELL HURLEY Attending Unavailable TALAMPAS, ELIZA D Primary Care Unavailable CLAUDETTE CORRALES Attending Unavailable TALAMPAS, ELIZA D Primary Care Unavailable TALAMPAS, ELIZA D Primary Care Unavailable TALAMPAS, ELIZA D Primary Care Unavailable TALAMPAS, ELIZA D Referring Unavailable TALAMPAS, ELIZA D Primary Care Unavailable TALAMPAS, ELIZA D Attending Unavailable TALAMPAS, ELIZA D Primary Care Unavailable TALAMPAS, ELIZA D Referring Unavailable SLEIK, KHALED MELOUD Referring Unavailable SLEIK, KHALED KAYLEEOUD Attending Unavailable TALAMPAS, ELIZA D Primary Care Unavailable MAL CARPIO JR Attending Unavailable TALAMPAS, ELIZA D Primary Care Unavailable TALAMPAS, ELIZA D Referring Unavailable TALAMPAS, ELIZA D Primary Care Unavailable TALAMPAS, ELIZA D Attending Unavailable KARISHMAIK, KHALED KAYLEEOUD Referring Unavailable TALAMPAS, ELIZA D Primary Care Unavailable SLEIK, KHALED KAYLEEOUD Attending Unavailable AMBAR LADD Attending Unavailable TALAMPAS, ELIZA D Primary Care Unavailable TALAMPAS, ELIZA D Primary Care Unavailable TALAMPAS, ELIZA D Attending Unavailable TALAMPAS, ELIZA D Primary Care Unavailable TALAMPAS, ELIZA D Referring Unavailable MAL CARPIO JR Attending Unavailable TALAMPAS, ELIZA D Primary Care Unavailable TALAMPAS, ELIZA D Primary Care Unavailable TALAMPAS, ELIZA D Attending Unavailable Allergies Allergy Classification Reported Allergen(s) Allergy Type Date of Onset Reaction(s) Facility (20 sources) cefdinir; Translations: [CEFDINIR] Drug Allergy 2 [facility] Work Phone: (20 sources) NITROFURANTOIN, MACROCRYSTALS / Nitrofurantoin, Monohydrate; Translations: [NITROFURANTOIN MONOHYD/M-CRYST] Drug Allergy 2 [facility] (2 sources) Angiotensin-conver ting enzyme inhibitor agent; Translations: [BANDAR INHIBITORS] Drug Allergy 1 Other: See Comments [facility] Medications Current Medications Medication Drug Class(es) Dates Sig (Normalized) Sig (Original) lacosamide 50 mg oral tablet (8 sources) Anti-epileptic Agent Start: 12-06-2022 End: 06-04-2023 take 1 tablet by mouth twice daily lacosamide (VIMPAT) 50 mg tab Indications: Focal epilepsy (HCC) Take 1 tablet by mouth two times a day for 180 days. 180 tablet 1 12/06/2022 06/04/2023 Active Completed/Discontinued Medications Medication Drug Class(es) Dates Sig (Normalized) Sig (Original) aspirin 81 mg delayed release oral tablet (20 sources) Platelet Aggregation Inhibitor, Nonsteroidal Anti-inflammatory Drug Start: 02-24-2013 take 1 tablet by mouth once daily aspirin, enteric coated (ECOTRIN LOW STRENGTH) 81 mg EC tablet Take 1 tablet by mouth once daily. 0 02/24/2013 Active Problems Active Problems Problem Classification Problem Date Documented Date Episodic/Chronic Administrative/social admission (1 source) Persons encountering health services in other specified circumstances; Translations: [Encounter for nail care] Onset: 03-22-2023 Episodic Coronary atherosclerosis and other heart disease (20 sources) Coronary atherosclerosis; Translations: [Atherosclerotic heart disease of [place] coronary artery with unspecified angina pectoris] Onset: 04-23-2015 04-23-2015 Chronic Diabetes mellitus with complications (20 sources) Type 2 diabetes mellitus; Translations: [Type 2 diabetes mellitus with diabetic polyneuropathy] Onset: 02-20-2014 12-25-2018 Chronic Disorders of lipid metabolism (20 sources) Hyperlipidemia; Translations: [Hyperlipidemia, unspecified] Onset: 07-17-2005 04-23-2015 Chronic Epilepsy; convulsions (8 sources) Localization-related epilepsy; Translations: [Localization-related (focal) (partial) symptomatic epilepsy and epileptic syndromes with simple partial seizures, not intractable, without status epilepticus] Onset: 12-06-2022 12-06-2022 Chronic Essential hypertension (20 sources) Essential (primary) hypertension; Translations: [Essential hypertension] Onset: 10-10-2004 02-09-2020 Chronic Genitourinary symptoms and ill-defined conditions (20 sources) Urinary incontinence; Translations: [Unspecified urinary incontinence] Onset: 05-30-2021 Chronic Hyperplasia of prostate (1 source) Benign prostatic hypertrophy with outflow obstruction; Translations: [Benign prostatic hyperplasia with lower urinary tract symptoms] Chronic Intracranial injury (2 sources) History of traumatic brain injury; Translations: [Personal history of traumatic brain injury] 11-24-2022 Episodic Late effects of cerebrovascular disease (20 sources) Late effects of cerebrovascular disease; Translations: [Unspecified sequelae of unspecified cerebrovascular disease] Onset: 10-10-2004 10-31-2016 Chronic Malaise and fatigue (3 sources) Fatigue; Translations: [Chronic fatigue, unspecified] Onset: 08-09-2022 Chronic Nutritional deficiencies (2 sources) Vitamin D deficiency; Translations: [Vitamin D deficiency, unspecified] Onset: 04-04-2023 10-20-2022 Chronic Other aftercare (1 source) Other chcf (current) drug therapy; Translations: [Encounter for long-term current use of medication] Onset: 04-04-2023 Episodic Other circulatory disease (1 source) Low blood pressure; Translations: [Hypotension, unspecified] Episodic Other circulatory disease (20 sources) Orthostatic hypotension; Translations: [Orthostatic hypotension] Onset: 09-04-2022 Episodic Other diseases of bladder and urethra (20 sources) Overactive bladder; Translations: [Overactive bladder] Onset: 08-14-2018 08-14-2018 Chronic Other nervous system disorders (2 sources) H/O: epilepsy; Translations: [Personal history of other diseases of the nervous system and sense organs] 11-24-2022 Episodic Other nutritional; endocrine; and metabolic disorders (5 sources) Unintentional weight loss; Translations: [Abnormal weight loss] Episodic Other nutritional; endocrine; and metabolic disorders (2 sources) Underweight; Translations: [Underweight] 09-10-2022 Episodic Other screening for suspected conditions (not mental disorders or infectious disease) (6 sources) Patient encounter status; Translations: [Encounter for screening for cardiovascular disorders] Episodic [place]-; endo-; and myocarditis; cardiomyopathy (except that caused by tuberculosis or sexually transmitted disease) (20 sources) Cardiomyopathy; Translations: [Cardiomyopathy, unspecified] Onset: 04-20-2014 04-23-2015 Chronic Unclassified (1 source) Unknown / UNK(Unknown) Onset: 03-23-2017 Urinary tract infections (2 sources) Acute cystitis; Translations: [Acute cystitis with hematuria] Episodic Past or Other Problems Problem Classification Problem Date Documented Da te Episodic/Chronic Coma; stupor; and brain damage (5 sources) Daytime somnolence; Translations: [Somnolence] Onset: 08-09-2022 08-09-2022 Episodic Genitourinary symptoms and ill-defined conditions (4 sources) Increased frequency of urination; Translations: [Frequency of micturition] Onset: 08-09-2022 Episodic Immunizations and screening for infectious disease (2 sources) Vaccination needed; Translations: [Encounter for immunization] Onset: 01-01-2023 Episodic Other disorders of stomach and duodenum (20 sources) Indigestion; Translations: [Functional dyspepsia] Onset: 05-19-2020 05-19-2020 Episodic Other gastrointestinal disorders (20 sources) Dysphagia; Translations: [Dysphagia, unspecified] Onset: 09-01-2021 Episodic Other gastrointestinal disorders (1 source) Dysphagia, unspecified; Translations: [Dysphagia, unspecified type] Onset: 09-01-2021 Episodic Other nervous system disorders (20 sources) Abnormal gait; Translations: [Unspecified abnormalities of gait and mobility] Onset: 04-20-2021 04-20-2021 Episodic Other nervous system disorders (1 source) Unsteadiness on feet; Translations: [Gait instability] Onset: 09-04-2022 Episodic Other nutritional; endocrine; and metabolic disorders (20 sources) Developmental delay; Translations: [Unspecified lack of expected normal physiological development in childhood] Onset: 10-10-2004 10-28-2015 Episodic Other nutritional; endocrine; and metabolic disorders (20 sources) Abnormal weight loss; Translations: [Abnormal weight loss] Onset: 09-01-2021 Episodic Other nutritional; endocrine; and metabolic disorders (1 source) Underweight; Translations: [Underweight] Onset: 10-20-2022 Episodic Syncope (13 sources) Vasovagal syncope; Translations: [Syncope and collapse] Onset: 08-09-2022 08-09-2022 Episodic Results Test Name Value Interpretation Reference Range Facil ity Vital Signs Date Time Vital Sign Value Performing Clinician Edelmirai samantha 02-05-2023 11:47-0500 Diastolic blood pressure 74 mm[Hg] Dl Wheeler MD Work Phone: [facility] 02-05-2023 11:47-0500 Heart rate 72 /min Dl Wheeler MD Work Phone: [facility] 02-05-2023 11:47-0500 SaO2% (BldA) [Mass fraction] 99 % Dl Wheeler MD Work Phone: [facility] 02-05-2023 11:47-0500 Systolic blood pressure 122 mm[Hg] lD Wheeler MD Work Phone: [facility] 02-05-2023 11:45-0500 Body weight 55.02 kg Dl Wheeler MD Work Phone: [facility] 11-24-2022 12:49-0400 Body weight 53.93 kg Mal Carpio Jr., MD Work Phone: [facility] 11-24-2022 12:49-0400 Diastolic blood pressure 73 mm[Hg] Mal Carpio Jr., MD Work Phone: [facility] 11-24-2022 12:49-0400 Heart rate 77 /min Mal Carpio Jr., MD Work Phone: [facility] 11-24-2022 12:49-0400 Respiratory rate 16 /min Mal Carpio Jr., MD Work Phone: [facility] 11-24-2022 12:49-0400 SaO2% (BldA) [Mass fraction] 95 % Mal Carpio Jr., MD Work Phone: [facility] 11-24-2022 12:49-0400 Systolic blood pressure 116 mm[Hg] Mal Carpio Jr., MD Work Phone: [facility] 10-20-2022 15:51-0400 Body temperature 98.1 [degF] Eliza Zamora MD Work Phone: [facility] 10-20-2022 15:51-0400 Body weight 53.8 kg Eliza Zamora MD Work Phone: [facility] 10-20-2022 15:51-0400 Diastolic blood pressure 62 mm[Hg] Eliza Zamora MD Work Phone: [facility] 10-20-2022 15:51-0400 Heart rate 77 /min Eliza Zamora MD Work Phone: [facility] 10-20-2022 15:51-0400 Respiratory rate 18 /min Eliza Zamora MD Work Phone: [facility] 10-20-2022 15:51-0400 SaO2% (BldA) [Mass fraction] 98 % Eliza Zamora MD Work Phone: [facility] 10-20-2022 15:51-0400 Systolic blood pressure 120 mm[Hg] Eliza Zamora MD Work Phone: [facility] 09-04-2022 08:32-0400 Body weight 53.98 kg Dl Wheeler MD Work Phone: [facility] 09-04-2022 08:32-0400 Diastolic blood pressure 60 mm[Hg] Dl Wheeler MD Work Phone: [facility] 09-04-2022 08:32-0400 Heart rate 88 /min Dl Wheeler MD Work Phone: [facility] 09-04-2022 08:32-0400 SaO2% (BldA) [Mass fraction] 100 % Dl Wheeler MD Work Phone: [facility] 09-04-2022 08:32-0400 Systolic blood pressure 110 mm[Hg] Dl Wheeler MD Work Phone: [facility] 08-09-2022 10:12-0400 Diastolic blood pressure 60 mm[Hg] Eliza Zamora MD Work Phone: [facility] 08-09-2022 10:12-0400 Systolic blood pressure 112 mm[Hg] Eliza Zamora MD Work Phone: [facility] 08-09-2022 09:11-0400 Body weight 53.07 kg Eliza Zamora MD Work Phone: [facility] 08-09-2022 09:11-0400 Heart rate 69 /min Eliza Zamora MD Work Phone: [facility] 08-09-2022 09:11-0400 Respiratory rate 16 /min Eliza Zamora MD Work Phone: [facility] 08-09-2022 09:11-0400 SaO2% (BldA) [Mass fraction] 94 % Eliza Zamora MD Work Phone: [facility] 05-01-2022 13:02-0500 Body weight 55.79 kg Ambar Ladd APRN.CNP Work Phone: [facility] 05-01-2022 13:02-0500 Diastolic blood pressure 64 mm[Hg] Ambar Asim PRISM INSPECTOR.TEAM MANAGER Work Phone: [facility] 05-01-2022 13:02-0500 Heart rate 89 /min Ambar Asim PRISM INSPECTOR.TEAM MANAGER Work Phone: [facility] 05-01-2022 13:02-0500 SaO2% (BldA) [Mass fraction] 99 % Ambar Asim PRISM INSPECTOR.TEAM MANAGER Work Phone: [facility] 05-01-2022 13:02-0500 Systolic blood pressure 100 mm[Hg] Ambar Asim PRISM INSPECTOR.TEAM MANAGER Work Phone: [facility] 04-03-2022 08:14-0500 Body weight 56.25 kg Ambar Asim PRISM INSPECTOR.TEAM MANAGER Work Phone: [facility] 04-03-2022 08:14-0500 Diastolic blood pressure 70 mm[Hg] Ambar Asim PRISM INSPECTOR.TEAM MANAGER Work Phone: [facility] 04-03-2022 08:14-0500 Heart rate 76 /min Ambar Asim PRISM INSPECTOR.TEAM MANAGER Work Phone: [facility] 04-03-2022 08:14-0500 SaO2% (BldA) [Mass fraction] 100 % Ambar Asim PRISM INSPECTOR.TEAM MANAGER Work Phone: [facility] 04-03-2022 08:14-0500 Systolic blood pressure 120 mm[Hg] Ambar Asim PRISM INSPECTOR.TEAM MANAGER Work Phone: [facility] 03-18-2022 10:54-0500 Body weight 56.25 kg Eliza Zamora MD Work Phone: [facility] 03-18-2022 10:54-0500 Respiratory rate 16 /min Eliza Zamora MD Work Phone: [facility] 03-10-2022 08:57-0500 Body height 175.3 cm Huy Rodríguez PA-C Work Phone: [facility] 03-10-2022 08:57-0500 Body temperature 98.71 [degF] Huy Rodríguez PA-C Work Phone: [facility] 03-10-2022 08:57-0500 Body weight 56.7 kg Huy Rodríguez PA-C Work Phone: [facility] 03-10-2022 08:57-0500 Diastolic blood pressure 76 mm[Hg] Huy Rodríguez PA-C Work Phone: [facility] 03-10-2022 08:57-0500 Heart rate 74 /min Huy Rodríguez PA-C Work Phone: [facility] 03-10-2022 08:57-0500 Respiratory rate 14 /min Huy Rodríguez PA-C Work Phone: [facility] 03-10-2022 08:57-0500 SaO2% (BldA) [Mass fraction] 94 % Huy Rodríguez PA-C Work Phone: [facility] 03-10-2022 08:57-0500 Systolic blood pressure 100 mm[Hg] Huy Rodríguez PA-C Work Phone: [facility] 03-01-2022 10:48-0500 Body temperature 97.9 [degF] Eliza Zamora MD Work Phone: [facility] 03-01-2022 10:48-0500 Body weight 56.02 kg Eliza Zamora MD Work Phone: [facility] 03-01-2022 10:48-0500 Diastolic blood pressure 58 mm[Hg] Eliza Zamora MD Work Phone: [facility] 03-01-2022 10:48-0500 Heart rate 70 /min Eliza Zamora MD Work Phone: [facility] 03-01-2022 10:48-0500 Respiratory rate 18 /min Eliza Zamora MD Work Phone: [facility] 03-01-2022 10:48-0500 SaO2% (BldA) [Mass fraction] 97 % Eliza Zamora MD Work Phone: [facility] 03-01-2022 10:48-0500 Systolic blood pressure 98 mm[Hg] Eliza Zamora MD Work Phone: [facility] 11-29-2021 09:21-0400 Body weight 58.06 kg Paulina Older PRISM INSPECTOR.TEAM MANAGER Work Phone: [facility] 11-29-2021 09:21-0400 Diastolic blood pressure 64 mm[Hg] Paulina Older PRISM INSPECTOR.TEAM MANAGER Work Phone: [facility] 11-29-2021 09:21-0400 Heart rate 80 /min Paulina Older PRISM INSPECTOR.TEAM MANAGER Work Phone: [facility] 11-29-2021 09:21-0400 Respiratory rate 14 /min Paulina Older PRISM INSPECTOR.TEAM MANAGER Work Phone: [facility] 11-29-2021 09:21-0400 Systolic blood pressure 98 mm[Hg] Paulina Older PRISM INSPECTOR.TEAM MANAGER Work Phone: [facility] 10-17-2021 15:12-0400 Body weight 60.42 kg Dl Wheeler MD Work Phone: [facility] 10-17-2021 15:12-0400 Diastolic blood pressure 58 mm[Hg] Dl Wheeler MD Work Phone: [facility] 10-17-2021 15:12-0400 Heart rate 78 /min Dl Wheeler MD Work Phone: [facility] 10-17-2021 15:12-0400 Respiratory rate 30 /min Dl Wheeler MD Work Phone: [facility] 10-17-2021 15:12-0400 Systolic blood pressure 122 mm[Hg] Dl Wheeler MD Work Phone: [facility] 09-01-2021 10:45-0400 Body height 174.6 cm Nehemiah Thomas MD Work Phone: [facility] 09-01-2021 10:45-0400 Body temperature 98.6 [degF] Nehemiah Thomas MD Work Phone: [facility] 09-01-2021 10:45-0400 Body weight 61.69 kg Nehemiah Thomas MD Work Phone: [facility] 09-01-2021 10:45-0400 Diastolic blood pressure 64 mm[Hg] Nehemiah Thomas MD Work Phone: [facility] 09-01-2021 10:45-0400 Heart rate 80 /min Nehemiah Thomas MD Work Phone: [facility] 09-01-2021 10:45-0400 Respiratory rate 16 /min Nehemiah Thomas MD Work Phone: [facility] 09-01-2021 10:45-0400 Systolic blood pressure 110 mm[Hg] Nehemiah Thomas MD Work Phone: [facility] 06-07-2021 10:09-0400 Body height 180.3 cm Huy Rodríguez PA-C Work Phone: [facility] 06-07-2021 10:09-0400 Body temperature 98.29 [degF] Huy Rodríguez PA-C Work Phone: [facility] 06-07-2021 10:09-0400 Body weight 65.77 kg Huy Rodríguez PA-C Work Phone: [facility] 06-07-2021 10:09-0400 Diastolic blood pressure 68 mm[Hg] Huy Rodríguez PA-C Work Phone: [facility] 06-07-2021 10:09-0400 Heart rate 94 /min Huy Rodríguez PA-C Work Phone: [facility] 06-07-2021 10:09-0400 Respiratory rate 16 /min Huy Rodríguez PA-C Work Phone: [facility] 06-07-2021 10:09-0400 SaO2% (BldA) [Mass fraction] 100 % Huy Rodríguez PA-C Work Phone: [facility] 06-07-2021 10:09-0400 Systolic blood pressure 108 mm[Hg] Huy Rodríguez PA-C Work Phone: [facility] 05-30-2021 13:54-0400 Body temperature 97.9 [degF] Nehemiah Thomas MD Work Phone: [facility] 05-30-2021 13:54-0400 Body weight 66.22 kg Nehemiah Thomas MD Work Phone: [facility] 05-30-2021 13:54-0400 Diastolic blood pressure 68 mm[Hg] Nehemiah Thomas MD Work Phone: [facility] 05-30-2021 13:54-0400 Heart rate 76 /min Nehemiha Thomas MD Work Phone: [facility] 05-30-2021 13:54-0400 Respiratory rate 24 /min Nehemiah Thomas MD Work Phone: [facility] 05-30-2021 13:54-0400 Systolic blood pressure 118 mm[Hg] Nehemiah Thomas MD Work Phone: [facility] Encounters Encounter Date Encounter Type Care Provider Facility Start: 04-04-2023 End: 04-05-2023 ambulatory ELIZA ZAMORA Facility:[facility] Start: 03-22-2023 End: 03-22-2023 ambulatory ELIZA ZAMORA Facility:[facility] Start: 03-22-2023 End: 03-22-2023 ambulatory CLAUDETTE CORRALES Facility:[facility] Start: 03-20-2023 End: 03-20-2023 ambulatory TYRELL HURLEY Facility:[facility] Start: 02-05-2023 End: 02-05-2023 ambulatory DL WHEELER Facility:[facility] Start: 02-05-2023 End: 02-05-2023 Patient encounter procedure Dl Wheeler MD Work Phone: Cardiology Procedures Date Procedure Procedure Detail Performing Clinician Start: 03-10-2022 Urnls dip stick/tabl et rgnt auto w/o microscopy Huy Rodríguez PA-C Work Phone: Start: 02-13-2022 Echo tthrc r-t 2d w/wom-mode compl spec&colr d Eliza Zamora MD Work Phone: Start: 11-29-2021 INFLUENZA VACCINE QUADRIVALENT 6 MO - 64 YRS IM Paulina Older PRISM INSPECTOR.TEAM MANAGER Work Phone: Start: 11-29-2021 PFIZER-BIONTECH COVI D-19 BIVALENT BOOSTER VACCINE, AGE 12+ YR Paulina Older PRISM INSPECTOR.TEAM MANAGER Work Phone: Start: 05-30-2021 Urnls dip stick/tabl et rgnt auto w/o microscopy Nehemiah Thomas MD Work Phone: Start: 11-23-2020 Adult depression scr eening assessment Nehemiah Thomas MD Work Phone: Plan of Treatment Date Care Activity Detail Author Start: 02-06-2024 BP Controlled (<130/80) BP Controlle d (<130/80) [facility] Start: 01-13-2024 BP Controlled (<130/80) BP Controlle d (<130/80) [facility] Start: 01-02-2024 Annual PCP Team [employer] [place] vincenzo Disease Visit Annual PCP Team Chronic Disease Visit [facility] Start: 01-02-2024 BP Controlled (<130/80) BP Controlle d (<130/80) [facility] Start: 01-02-2024 Covid-19 Vaccine (2022- season) Covid-19 Vaccine ( season) [facility] Immunizations Immunization Date Immunization Notes Care Provider Fa cility 01-01-2023 influenza (HD-IIV4) vaccine, age 65+ yr, high dose, quadrivalent, PF (FLUZONE HIGH-DOSE) Jean Carlos Viera RN Work Phone: [facility] 03-18-2022 pneumococcal (PCV20) vaccine, 20 valent (PREVNAR 20) Dl Wheeler MD Work Phone: [facility] 03-18-2022 pneumococcal Conjugate, unspecified formulation Eliza Zamora MD Work Phone: [facility] Work Phone: 11-29-2021 COVID-19 booster vaccine, age 12+ yr, bivalent (PFIZER-BIONTECH) Paulina Older PRISM INSPECTOR.TEAM MANAGER Work Phone: [facility] 11-29-2021 influenza, injectabl e, quadrivalent, contains preservative Paulina Older PRISM INSPECTOR.TEAM MANAGER Work Phone: [facility] 11-29-2021 influenza virus vaccine, unspecified formulation Eliza Zamora MD Work Phone: [facility] 11-29-2020 influenza, injectabl e, quadrivalent, contains preservative Nehemiah Thomas MD Work Phone: [facility] Work Phone: 06-05-2020 COVID-19 original vaccine, age 12+ yr, monovalent (PFIZER-BIONTECH - PURPLE TOP) lEiza Zamora MD Work Phone: [facility] 05-15-2020 COVID-19 vaccine, ag e 12+ yr (PFIZER-BIONTECH - PURPLE TOP) Nehemiah Thomas MD Work Phone: [facility] Work Phone: 02-09-2020 influenza, injectabl e, quadrivalent, contains preservative Nehemiah Thomas MD Work Phone: [facility] 12-17-2014 influenza, injectabl e, quadrivalent, contains preservative Nehemiah Thomas MD Work Phone: [facility] 04-20-2014 pneumococcal conjuga te vaccine, 13 valent Nehemiah Thomas MD Work Phone: [facility] 12-10-2013 influenza, seasonal, injectable Nehemiah Thomas MD Work Phone: [facility] Work Phone: 12-13-2012 influenza virus vaccine, unspecified formulation Nehemiah Thomas MD Work Phone: [facility] 01-06-2012 influenza virus vaccine, unspecified formulation Nehemiah Thomas MD Work Phone: [facility] Work Phone: 01-07-2011 influenza virus vaccine, unspecified formulation Nehemiah Thomas MD Work Phone: [facility] Work Phone: 02-03-2010 influenza virus vaccine, unspecified formulation Nehemiah Thomas MD Work Phone: [facility] Work Phone: 10-29-2009 tetanus toxoid, reduced diphtheria toxoid, and acellular pertussis vaccine, adsorbed Nehemiah Thomas MD Work Phone: [facility] 11-20-2008 influenza virus vaccine, unspecified formulation Nehemiah Thomas MD Work Phone: [facility] 01-14-2008 influenza virus vaccine, unspecified formulation Nehemiah Thomas MD Work Phone: [facility] 01-07-2007 influenza virus vaccine, unspecified formulation Nehemiah Thomas MD Work Phone: [facility] 01-11-2006 influenza virus vaccine, unspecified formulation Nehemiah Thomas MD Work Phone: [facility] 01-17-2005 influenza virus vaccine, unspecified formulation Nehemiah Thomas MD Work Phone: [facility] Work Phone: 10-28-1999 diphtheria and tetan us toxoids, adsorbed for pediatric use Nehemiah Thomas MD Work Phone: [facility] Work Phone: Payers Date Payer Category Payer Medicaid MEDICAID [facility] MEDICAID [id number] 2015-Present [phone] [address] [place] [address] Medicaid [id number] 2015 Medicaid MEDICAID [facility] MEDICAID [id number] 2015-Present [phone] [address] [place] [id number] Medicaid [id number] 2015 Medicaid [id number] 2014 Medicare [employer] [facility] [id number] 2014-Present [phone] [place] [address] [facility] [place] [id number] 2014 Medicare [employer] [facility] [place] [id number] 2014-Present [phone] [place] [address] [facility] [place] [id number] 2014 Unknown [id number] Social History Date Type Detail Facility Tobacco smoking stat [facility] Never smoked tobacco [facility] Start: 05-05-2021 End: 02-05-2023 Alcohol intake Current non-drinker of alcohol (finding) [facility] Start: 11-19-2019 End: 11-26-2021 History SDOH Alcohol Frequency 1 [facility] Start: 11-19-2019 History SDOH Alcohol Std Drinks 98 [facility] Start: 11-15-2019 End: 01-25-2022 History SDOH Social Connections Get Together 5 [facility] Start: 08-23-2019 End: 01-25-2022 History SDOH Social Connections Membership 2 [facility] Start: 08-23-2019 End: 01-25-2022 History SDOH Social Connections Living 7 [facility] Start: 08-23-2019 End: 01-25-2022 History SDOH Physical Activity DPW 0 [facility] Start: 11-15-2019 History SDOH Stress 3 [facility] Start: 1955 Sex Assigned At Not on file [facility] Start: 05-01-2021 End: 01-28-2022 Exposure to SARS-CoV-2 (event) Not sure [facility] Start: 01-24-2022 End: 06-28-2022 History of Social function [facility] Start: 01-24-2022 End: 06-28-2022 Social connection and isolation panel [facility] Do you belong to any clubs or organizations such as moravian groups, unions, fraternal or athletic groups, or school groups? No [facility] Are you now , , , , never or living with a partner? Never [facility] How often to you hav e a drink containing alcohol? Never [facility] How many standard dr inks containing alcohol do you have on a typical day? Patient does not drink [facility] (I/We) worried wheth er (my/our) food would run out before (I/we) got money to buy more. Never true [facility] How hard is it for y ou to pay for the very basics like food, housing, medical care, and heating Hard [facility] Work Phone: Medical Equipment Procedure Code Equipment Code Equipment Origin al Text Equipment Identifier Dates Start: 06-07-2015 End: 08-30-2022 Clinical Notes 08-28-2019 to 03-22-2023 Dl Wheeler MD - 02/05/2023 12:14 PM ESTTelephone Encounter - Kassy Almazan LPN - 02/02/2023 10:26 AM ESTTelephone Encounter - Xiomy Herbert - 02/02/2023 8:59 AM EST Note Date & Type Note Facility 03-22-2023 Note HNO ID: [id number] Author: MABEL MCKINLEY APRN.TEAM MANAGER Service: ? Author Type: Nurse Practitioner Type: Progress Notes Filed: 03/22/2023 13:51 Note Text: Subjective HPI Nontoxic-appearing male presents urgent care accompanied by caregivers. Chief complaint dark urine. Has noticed this last few mornings when he awoke. Noticed darker urine in his diaper. Presents today concerned about possible UTI. Denies any other concerns. Drinking normally. No fevers. Appetite is good. Denies any fevers vomiting rashes urological abnormalities. Past medical history prescription medications allergies reviewed. 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 simvastatin (ZOCOR) 20 mg tablet Take 1 tablet by mouth daily at bedtime. famotidine (PEPCID) 20 mg tablet Take 1 tablet by mouth once daily. (Per GI) blood sugar diagnostic (BLOOD GLUCOSE TEST) test strip Test blood sugar(s) 2 times daily. Dx: Type 2 DM - Uncontrolled E11.65 Insulin: No oxybutynin ER (DITROPAN XL) 10 mg 24 hr tablet Take 1 tablet by mouth once daily. docusate sodium (COLACE) 100 mg capsule Take 200 mg by mouth daily with breakfast. cyanocobalamin (VITAMIN B-12) 1,000 mcg tab Take 1 tablet by mouth once daily. nitroglycerin (NITROLINGUAL) 400 mcg/spray spray Dissolve 1 [place] under the tongue every 5 minutes as needed. fluticasone (FLONASE) 50 mcg/actuation nasal spray Use 2 Sprays in each nostril once daily. Rinse mouth after use. Lactobacillus rhamnosus GG (CULTURELLE ORAL) Take 1 capsule by mouth once daily. glucosamine/chondr victoria A sod (OSTEO BI-FLEX ORAL) Take by mouth once daily. Lancets lancets Test blood sugar(s) two times daily. Dx: E11.9. Insulin: No aspirin, enteric coated (ECOTRIN LOW STRENGTH) 81 mg EC tablet Take 1 tablet by mouth once daily. FAMILY HISTORY Problem Relation Age of Onset Coronary Artery Disease Father Heart Father MS AT AGE 63 COPD Sister Asthma Sister No Known Problems Maternal Grandmother No Known Problems Maternal Grandfather No Known Problems Paternal Grandmother No Known Problems Paternal Grandfather Colon Cancer Other Cancer Other LUNG Diabetes Other Emphysema Other Social History Tobacco Use Smoking status: Never Smokeless tobacco: Never Vaping Use Vaping Use: Never used Substance Use Topics Alcohol use: No Drug use: No BP 102/64 Pulse 85 Temp 36.4 ?C (97.5 ?F) (Tympanic) Resp 18 Wt 53.8 kg (118 lb 9.6 oz) SpO2 100% BMI 17.51 kg/m? Review of Systems Constitutional: Negative for chills, fever and malaise/fatigue. HENT: Negative for congestion, ear discharge, ear pain, sinus pain and sore throat. Eyes: Negative for pain, discharge and redness. Respiratory: Negative for cough, hemoptysis, sputum production, shortness of breath, wheezing and stridor. Cardiovascular: Negative for chest pain. Gastrointestinal: Negative for abdominal pain, diarrhea and vomiting. Musculoskeletal: Negative for myalgias. Skin: Negative for itching and rash. Objective Physical Exam Vitals and nursing note reviewed. Constitutional: General: He is not in acute distress. Appearance: He is not toxic-appearing or diaphoretic. HENT: Head: Normocephalic. Jaw: No trismus. Right Ear: Hearing normal. No decreased hearing noted. No drainage, swelling or tenderness. Tympanic membrane is not perforated, erythematous or bulging. Left Ear: Hearing normal. No decreased hearing noted. No drainage, swelling or tenderness. Tympanic membrane is not perforated, erythematous or bulging. Nose: Nose normal. Mouth/Throat: Pharynx: Uvula midline. No uvula swelling. Tonsils: No tonsillar abscesses. Eyes: Pupils: Pupils are equal, round, and reactive to light. Cardiovascular: Rate and Rhythm: Normal rate and regular rhythm. Pulses: Normal pulses. Pulmonary: Effort: Pulmonary effort is normal. No respiratory distress. Breath sounds: Normal breath sounds. Chest: Chest wall: No tenderness. Abdominal: General: Bowel sounds are norm (more content not included)... [facility] 03-22-2023 Note HNO ID: [id number] Author: CLAUDETTE CORRALES, ? Service: ? Author Type: Physician Type: Progress Notes Filed: 03/22/2023 12:23 Note Text: Last time saw pcp: 01/01/23 Initial Office Visit Subjective: This 68 year old male presents to clinic for diabetic foot check. Patient admits to being diabetic for multiple years now. Patient +pain in legs when walking. No other pedal complaints at this time. No change in medications or medical history since last visit. PAIN EVALUATION No data found in the last 1 encounters. Hemoglobin A1C (%) Date Value 10/20/2022 5.3 08/09/2022 5.5 03/01/2022 5.7 11/23/2021 5.7 05/20/2021 6.0 11/18/2020 6.1 05/15/2020 6.2 08/25/2019 6.0 11/02/2018 6.1 05/04/2018 6.1 PCP: Eliza Zamora MD PAST MEDICAL HISTORY Diagnosis Date CONVULSIONS, OTHER 10/10/2004 none since age 10 Dysmetabolic syndrome X 10/10/2004 LATE EFF,CV DIS,UNSPECIFIED 10/10/2004 Obesity, unspecified 10/10/2004 Other primary cardiomyopathies 04/20/2014 Prostate nodule 03/06/2022 Stroke (cerebrum) (HCC) Type II or unspecified type diabetes mellitus without mention of complication, not stated as uncontrolled 02/20/2014 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) 10/10/2004 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 simvastatin (ZOCOR) 20 mg tablet Take 1 tablet by mouth daily at bedtime. famotidine (PEPCID) 20 mg tablet Take 1 tablet by mouth once daily. (Per GI) blood sugar diagnostic (BLOOD GLUCOSE TEST) test strip Test blood sugar(s) 2 times daily. Dx: Type 2 DM - Uncontrolled E11.65 Insulin: No oxybutynin ER (DITROPAN XL) 10 mg 24 hr tablet Take 1 tablet by mouth once daily. docusate sodium (COLACE) 100 mg capsule Take 200 mg by mouth daily with breakfast. cyanocobalamin (VITAMIN B-12) 1,000 mcg tab Take 1 tablet by mouth once daily. nitroglycerin (NITROLINGUAL) 400 mcg/spray spray Dissolve 1 [place] under the tongue every 5 minutes as needed. fluticasone (FLONASE) 50 mcg/actuation nasal spray Use 2 Sprays in each nostril once daily. Rinse mouth after use. Lactobacillus rhamnosus GG (CULTURELLE ORAL) Take 1 capsule by mouth once daily. glucosamine/chondr victoria A sod (OSTEO BI-FLEX ORAL) Take by mouth once daily. Lancets lancets Test blood sugar(s) two times daily. Dx: E11.9. Insulin: No aspirin, enteric coated (ECOTRIN LOW STRENGTH) 81 mg EC tablet Take 1 tablet by mouth once daily. No current facility-administered medications for this visit. ALLERGIES Allergen Reactions Bandar Inhibitors Other: See Comments Cough, hypotension Macrobid [Nitrofura* Rash Cefdinir Rash PAST SURGICAL HISTORY Procedure Laterality Date LAPAROSCOPY SURG RPR INITIAL INGUINAL HERNIA Left 07/20/2016 plus umbilica hernia repair FAMILY HISTORY Problem Relation Age of Onset Coronary Artery Disease Father Heart Father MS AT AGE 63 COPD Sister Asthma Sister No Known Problems Maternal Grandmother No Known Problems Maternal Grandfather No Known Problems Paternal Grandmother No Known Problems Paternal Grandfather Colon Cancer Other Cancer Other LUNG Diabetes Other Emphysema Other Social History Tobacco Use Smoking status: Never Smokeless tobacco: Never Vaping Use Vaping Use: Never used Substance Use Topics Alcohol use: No Drug use: No REVIEW OF SYSTEMS GENERAL: Negative for Malaise, significant weight loss, fever RESPIRATORY: Negative for cough, wheezing and shortness of breath CARDIOVASCULAR: Negative for chest pain, leg swelling and palpitations GI: Negative for abdominal discomfort, blood in stools or black stools and change in bowel habits : Negative for dysuria, frequency and incontinence MUSCULOSKELETAL: Negative for joint pain or swelling, back pain, and muscle pain. SKIN: Negative for lesions, rash, and itching. HEMATOLOGY/LYMPHOLOGY Negative for prolonged bleeding, bruising easily, and swollen nodes. ENDOCRINE: Negative for cold or heat intolerance, polyuria, polydipsia and goiter. NEURO: negative The remainder of the review of systems is noncontributory. Objective: Patient presents to clinic ambulating in new balance with diabetic inserts Constitutional: Pt is a well developed 68 year old male who is alert, oriented, cooperative and in no apparent distress. Eyes: Following during examination. No redness or drainage. Respiratory: RR normal and nonlabored. Even breathing. No evidence of distress. Psychology: Patient is engaged during conversation. Normal affect and mood. Does not appear depressed or anxious. Vasc: DP and PT pulses are palpable bilateral. CFT is less than 5 seconds bilateral. Skin temperature is warm to cool proximal to distal bilateral. There is moderate edema or varicositi (more content not included)... [facility] 03-22-2023 Note HNO ID: [id number] Author: CAIT BAH LPN Service: ? Author Type: LICENSED NURSE Type: Progress Notes Filed: 03/22/2023 12:23 Note Text: AMB ROOMING INTAKE FLOWSHEET DATA Patient presents with: Left Foot - New, nail care Right Foot - New, nail care Cait Bah LPN [facility] 03-20-2023 Note HNO ID: [id number] Author: TYRELL HURLEY PA-C Service: ? Author Type: Physician Assistant In Nursing Type: Progress Notes Filed: 03/20/2023 13:28 Note Text: ESTABLISHED PATIENT VISIT Last visit: 01/12/[address] Carpio ASSESSMENT/PLAN: 1. Nonintractable epilepsy without status epilepticus, unspecified epilepsy type (HCC) - ICD9: 345.90, ICD10: G40.909 (primary diagnosis) 2. Seizures (HCC) - ICD9: 780.39, ICD10: R56.9 3. History of traumatic brain injury - ICD9: V15.52, ICD10: Z87.820 4. History of stroke - ICD9: V12.54, ICD10: Z86.73 Patient with known episodes of unresponsiveness as above, felt to likely represent epilepsy following EMU evaluation. Episodes resolved following initiation of Vimpat 50mg BID. That said, family concerned pt still tired despite Vimpat. Again, there could be multiple causes of daytime sleepiness including abnormal circadian pattern (still not verified) or other med conditions. We discussed alternative AEDs including Keppra, Lamictal, VPA, Topamax... Given current reports of behavioral issues, focus placed on Lamictal and VPA, with family later choosing VPA. Will start on 500mg BID. Explained that patient should continue Vimpat tonight and stop in AM, with initiation of VPA at that time. SE and ADRs d/w pt and family. Pt will follow up in 3 months or sooner prn. Pt will need VPA levels and CMP/CBC at time of next visit. Would also check ammonia. Note pt does not drive. Seizure risk and precautions d/w family. Mal Carpio MD CHIEF COMPLAINT: follow up HISTORY OF PRESENT ILLNESS: Inna Ortiz is a 68 year old male, There were no vitals taken for this visit. with a PMH significant for HTN, obesity, DM type 2, stroke, epilepsy, TBI, AND DD. Last saw Dr. Carpio on 01/12/23 for epilepsy. More fatgiued on vimpat 50mg bid, but no longer having episodes. Do not want to follow with epilepsy. Started VPA 500mg bid and follow up with lab draw. Patient was having recurrent episodes of syncope while on commode, unclear if true loc or AMS. Sees cardiology for orthostatic hypotension, did not tolerate midodrine. EMU admission showed Interictal R FT sharp waves, no seizures or episodes were recorded. Mychart message noting did not tolerate VPA and switched to Vimpat 50 mg bid. Patient presents with his family for follow-up appointment. Patient is nonverbal but will occasionally make sounds her appointment. Per patient's sister, patient did not tolerate Depakote, was on this for 5 days and it was like he was in a daze, glassy eyes and not eating. Notes that she stopped this medication and put her back on Vimpat 50 mg twice daily. Notes he is tolerating this well, no significant concerns for fatigue, no episodes of syncope or altered mental status since continuing the Vimpat. No new symptoms or concerns today. Notes that he does watch TV through most of the day they have been trying to get him up and active. She does note that he was very fatigued yesterday and slept mostly on the couch all day, but this is atypical for him. Has been having episodes of staring almost daily, but he is distractible during these episodes. No tongue biting or incontinence. No falls. Does follow with cardiology and is drinking water throughout the day, notes that he did not do much water today because he did not want to urinate while he was going to the doctor's office. No side effects with the Vimpat, patient otherwise doing well. Patient was referred to epilepsy, but was unable to get in with Dr. Sparks locally in [place] and needs a new referral prompting visit today. Notes that they have a follow-up with primary care as well with blood work in April. REVIEW OF SYSTEMS GENERAL:No weight loss, malaise or fevers. HEENT:Negative for frequent or significant headaches, No changes in hearing or vision, no nose bleeds or other nasal problems NECK:Negative for lumps, goiter, pain and significant neck swelling RESPIRATORY: Negative for cough, wheezing or shortness of breath. CARDIOVASCULAR: Negative for chest pain, leg swelling or palpitations. GASTROINTESTINAL: Negative for abdominal discomfort, blood in stools or black stools or change in bowel habits GENITOURINARY: No history of dysuria, frequency or incontinence MUSCULOSKELETAL: Negative for joint pain or swelling, back pain or muscle pain. NEUROLOGIC:Negative for focal numbness or weakness, headaches and dizziness or syncope, vision changes, speech/languag changes - EXCEPT that as per HPI above. SKIN:Negative for lesions, rash, and itching. PSYCHIATRIC: Negative for sleep disturbance, mood disorder and recent psychosocial stressors. HEMATOLOGIC/LYMPHATIC/IMMUNOLOGI C:Negative for prolonged bleeding, bruising easily or swollen nodes. ENDOCRINE: Negative for cold or heat intolerance, polyuria, polydipsia and goiter. The remainder of the ROS was reviewed and is negative. LAB/IMAGING: Those performed since patient's la (more content not included)... [facility] 02-05-2023 Note HNO ID: [id number] Author: Dl Wheeler MD Service: ? Author Type: Physician Type: Progress Notes Filed: 02/05/2023 12:18 PM Note Text: Dl Wheeler MD Interventional Cardiology [address] [place] [address] Chief Complaint Patient presents with: Follow Up: Post 30 day halter monitor HISTORY OF PRESENT ILLNESS: Mr. Ortiz is a 67 year old male patient seen in the office today for assessment of orthostatic hypotension with low blood pressure in the setting of cardiomyopathy with ejection fraction of 40% he was taken off all his blood pressure medication and cardiac medication because of the systolic blood pressures down to the 80s He is maintained on fluid hydration and salt intake and compression stocking Most of this history is obtained from the family caregiver Blood pressures log is within normal range with few episodes where there is low blood pressures systolic in the 80s Cardiac Risk Factors age (male over 45, female over 55), family history of CAD PAST MEDICAL HISTORY Diagnosis Date CONVULSIONS, OTHER 10/10/2004 none since age 10 Dysmetabolic syndrome X 10/10/2004 LATE EFF,CV DIS,UNSPECIFIED 10/10/2004 Obesity, unspecified 10/10/2004 Other primary cardiomyopathies 04/20/2014 Prostate nodule 03/06/2022 Stroke (cerebrum) (HCC) Type II or unspecified type diabetes mellitus without mention of complication, not stated as uncontrolled 02/20/2014 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) 10/10/2004 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 Unspecified essential hypertension 10/10/2004 PAST SURGICAL HISTORY Procedure Laterality Date LAPAROSCOPY SURG RPR INITIAL INGUINAL HERNIA Left 07/20/2016 plus umbilica hernia repair FAMILY HISTORY Problem Relation Age of Onset Coronary Artery Disease Father Heart Father MS AT AGE 63 COPD Sister Asthma Sister No Known Problems Maternal Grandmother No Known Problems Maternal Grandfather No Known Problems Paternal Grandmother No Known Problems Paternal Grandfather Colon Cancer Other Cancer Other LUNG Diabetes Other Emphysema Other Social History Tobacco Use Smoking status: Never Smokeless tobacco: Never Vaping Use Vaping Use: Never used Substance Use Topics Alcohol use: No Drug use: No ALLERGIES Allergen Reactions Bandar Inhibitors Other: See Comments Cough, hypotension Macrobid [Nitrofura* Rash Cefdinir Rash Medications: Current Outpatient Medications Medication Sig Dispense Refill simvastatin (ZOCOR) 20 mg tablet Take 1 tablet by mouth daily at bedtime. 90 tablet 3 famotidine (PEPCID) 20 mg tablet Take 1 tablet by mouth once daily. (Per GI) 90 tablet 2 lacosamide (VIMPAT) 50 mg tab Take 1 tablet by mouth two times a day for 180 days. 180 tablet 1 blood sugar diagnostic (BLOOD GLUCOSE TEST) test strip Test blood sugar(s) 2 times daily. Dx: Type 2 DM - Uncontrolled E11.65 Insulin: No 200 Strip 3 oxybutynin ER (DITROPAN XL) 10 mg 24 hr tablet Take 1 tablet by mouth once daily. 90 tablet 3 docusate sodium (COLACE) 100 mg capsule Take 200 mg by mouth daily with breakfast. cyanocobalamin (VITAMIN B-12) 1,000 mcg tab Take 1 tablet by mouth once daily. nitroglycerin (NITROLINGUAL) 400 mcg/spray spray Dissolve 1 [place] under the tongue every 5 minutes as needed. 12 g 1 fluticasone (FLONASE) 50 mcg/actuation nasal spray Use 2 Sprays in each nostril once daily. Rinse mouth after use. 1 Each 11 Lactobacillus rhamnosus GG (CULTURELLE ORAL) Take 1 capsule by mouth once daily. glucosamine/chondr victoria A sod (OSTEO BI-FLEX ORAL) Take by mouth once daily. Lancets lancets Test blood sugar(s) two times daily. Dx: E11.9. Insulin: No 100 Each 11 aspirin, enteric coated (ECOTRIN LOW STRENGTH) 81 mg EC tablet Take 1 tablet by mouth once daily. [address] (DEPAKOTE) 500 mg EC tablet Take 1 tablet by mouth two times a day. 180 tablet 1 No current facility-administered medications for this visit. Review of Systems Constitutional: Negative for chills, diaphoresis, fever, malaise/fatigue and weight loss. HENT: Negative for congestion, ear discharge, ear pain, hearing loss, nosebleeds, sinus pain, sore throat and tinnitus. Eyes: Negative for blurred vision, double vision, photophobia, pain, discharge and redness. Respiratory: Negative for cough, hemoptysis, sputum production, shortness of breath, wheezing and stridor. Cardiovascular: Negative for chest pain, palpitations, orthopnea, claudication, leg swelling and PND. Gastrointestinal: Negative for abdominal pain, blood in stool, constipation, diarrhea, heartburn, melena, nausea and vomiting. Genitourinary: Negative for dysuria, flank pain, frequency, hematuria and urgency. Musculoskeletal: Negative for back pain, falls, joint pain, myalgias and neck pain. Skin: Negative for itching and rash. Neurological: Negative for dizziness, tingling (more content not included)... [facility] 02-05-2023 History of Presen t illness Narrative Images from the original note were not included. Dl Wheeler MD Interventional Cardiology [address] [id number] Chief Complaint Patient presents with: Follow Up: Post 30 day halter monitor HISTORY OF PRESENT ILLNESS: Mr. Ortiz is a 67 year old male patient seen in the office today for assessment of orthostatic hypotension with low blood pressure in the setting of cardiomyopathy with ejection fraction of 40% he was taken off all his blood pressure medication and cardiac medication because of the systolic blood pressures down to the 80s He is maintained on fluid hydration and salt intake and compression stocking Most of this history is obtained from the family caregiver Blood pressures log is within normal range with few episodes where there is low blood pressures systolic in the 80s Cardiac Risk Factors age (male over 45, female over 55), family history of CAD PAST MEDICAL HISTORY Diagnosis Date CONVULSIONS, OTHER 10/10/2004 none since age 10 Dysmetabolic syndrome X 10/10/2004 LATE EFF,CV DIS,UNSPECIFIED 10/10/2004 Obesity, unspecified 10/10/2004 Other primary cardiomyopathies 04/20/2014 Prostate nodule 03/06/2022 Stroke (cerebrum) (HCC) Type II or unspecified type diabetes mellitus without mention of complication, not stated as uncontrolled 02/20/2014 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) 10/10/2004 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 Unspecified essential hypertension 10/10/2004 PAST SURGICAL HISTORY Procedure Laterality Date LAPAROSCOPY SURG RPR INITIAL INGUINAL HERNIA Left 07/20/2016 plus umbilica hernia repair FAMILY HISTORY Problem Relation Age of Onset Coronary Artery Disease Father Heart Father MS AT AGE 63 COPD Sister Asthma Sister No Known Problems Maternal Grandmother No Known Problems Maternal Grandfather No Known Problems Paternal Grandmother No Known Problems Paternal Grandfather Colon Cancer Other Cancer Other LUNG Diabetes Other Emphysema Other Social History Tobacco Use Smoking status: Never Smokeless tobacco: Never Vaping Use Vaping Use: Never used Substance Use Topics Alcohol use: No Drug use: No ALLERGIES Allergen Reactions Bandar Inhibitors Other: See Comments Cough, hypotension Macrobid [Nitrofura* Rash Cefdinir Rash Medications: Current Outpatient Medications Medication Sig Dispense Refill simvastatin (ZOCOR) 20 mg tablet Take 1 tablet by mouth daily at bedtime. 90 tablet 3 famotidine (PEPCID) 20 mg tablet Take 1 tablet by mouth once daily. (Per GI) 90 tablet 2 lacosamide (VIMPAT) 50 mg tab Take 1 tablet by mouth two times a day for 180 days. 180 tablet 1 blood sugar diagnostic (BLOOD GLUCOSE TEST) test strip Test blood sugar(s) 2 times daily. Dx: Type 2 DM - Uncontrolled E11.65 Insulin: No 200 Strip 3 oxybutynin ER (DITROPAN XL) 10 mg 24 hr tablet Take 1 tablet by mouth once daily. 90 tablet 3 docusate sodium (COLACE) 100 mg capsule Take 200 mg by mouth daily with breakfast. cyanocobalamin (VITAMIN B-12) 1,000 mcg tab Take 1 tablet by mouth once daily. nitroglycerin (NITROLINGUAL) 400 mcg/spray spray Dissolve 1 [place] under the tongue every 5 minutes as needed. 12 g 1 fluticasone (FLONASE) 50 mcg/actuation nasal spray Use 2 Sprays in each nostril once daily. Rinse mouth after use. 1 Each 11 Lactobacillus rhamnosus GG (CULTURELLE ORAL) Take 1 capsule by mouth once daily. glucosamine/chondr victoria A sod (OSTEO BI-FLEX ORAL) Take by mouth once daily. Lancets lancets Test blood sugar(s) two times daily. Dx: E11.9. Insulin: No 100 Each 11 aspirin, enteric coated (ECOTRIN LOW STRENGTH) 81 mg EC tablet Take 1 tablet by mouth once daily. [address] (DEPAKOTE) 500 mg EC tablet Take 1 tablet by mouth two times a day. 180 tablet 1 No current facility-administered medications for this visit. Review of Systems Constitutional: Negative for chills, diaphoresis, fever, malaise/fatigue and weight loss. HENT: Negative for congestion, ear discharge, ear pain, hearing loss, nosebleeds, sinus pain, sore throat and tinnitus. Eyes: Negative for blurred vision, double vision, photophobia, pain, discharge and redness. Respiratory: Negative for cough, hemoptysis, sputum production, shortness of breath, wheezing and stridor. Cardiovascular: Negative for chest pain, palpitations, orthopnea, claudication, leg swelling and PND. Gastrointestinal: Negative for abdominal pain, blood in stool, constipation, diarrhea, heartburn, melena, nausea and vomiting. Genitourinary: Negative for dysuria, flank pain, frequency, hematuria and urgency. Musculoskeletal: Negative for back pain, falls, joint pain, myalgias and neck pain. Skin: Negative for itching and rash. Neurological: Negative for dizziness, tingling, tremors, sensory change, speech change, focal weakness, seizures, loss of consciousness, weakness and headaches. Endo/Heme/Allergies: Negative for environmental allergies and polydipsia. Does not bruise/bleed easily. Psychiatric/Behavioral: Negative for depression, hallucinations, memory loss, substance abuse and suicidal ideas. The patient is not nervous/anxious and does not have insomnia. Physical Examination: Vitals:BP 122/74 Pulse 72 Wt 121 lb 4.8 oz (55.0kg) SpO2 99% BP w/Orthostatic Vitals Date and Time Orthostatic BP Orthostatic Pulse BP Pulse BP Position BP Site BP Cuff Size 02/05/23 1147 -- -- 122/74 72 Sitting Right Arm Regular Adult Last 2 Encounter Wt Readings: Date: Wt: 02/05/2023 55 kg (121 lb 4.8 oz) 01/12/2023 53.6 kg (118 lb 3.2 oz) Physical Exam Constitutional: General: He is not in acute distress. Appearance: He is not diaphoretic. HENT: Head: Normocephalic and atraumatic. Right Ear: External ear normal. Left Ear: External ear normal. Nose: Nose normal. Mouth/Throat: Pharynx: Oropharynx is clear. Eyes: General: Right eye: No discharge. Left eye: No discharge. Conjunctiva/sclera: Conjunctivae normal. Pupils: Pupils are equal, round, and reactive to light. Cardiovascular: Rate and Rhythm: Normal rate and regular rhythm. Heart sounds: Normal heart sounds, S1 normal and S2 normal. No murmur heard. No friction rub. No gallop. No S3 or S4 sounds. Pulmonary: Effort: Pulmonary effort is normal. No respiratory distress. Breath sounds: Normal breath sounds. No wheezing or rales. Chest: Chest wall: No tenderness. Musculoskeletal: General: Normal range of motion. Cervical back: Normal range of motion and neck supple. Skin: General: Skin is warm and dry. Neurological: Mental Status: He is alert and oriented to person, place, and time. Psychiatric: Mood and Affect: Mood normal. Thought Content: Thought content normal. Pertinent Labs: CBC: Hemoglobin (g/dL) Date Value 12/04/2022 14.6 11/18/2020 15.7 Hematocrit (%) Date Value 12/04/2022 45.8 11/18/2020 51.0 WBC (k/uL) Date Value 12/04/2022 7.84 11/18/2020 7.56 Platelet Count (k/uL) Date Value 12/04/2022 198 11/18/2020 246 BMP: Glucose (mg/dL) Date Value 12/04/2022 94 11/18/2020 112 Potassium (mmol/L) Date Value 12/04/2022 4.3 11/18/2020 4.1 Sodium (mmol/L) Date Value 12/04/2022 142 11/18/2020 139 Chloride (mmol/L) Date Value 12/04/2022 105 11/18/2020 101 CO2 (mmol/L) Date Value 12/04/2022 29 11/18/2020 26 Creatinine (mg/dL) Date Value 12/04/2022 0.88 11/18/2020 0.99 BUN (mg/dL) Date Value 12/04/2022 15 11/18/2020 17 Anion Gap (mmol/L) Date Value 12/04/2022 8 11/18/2020 12 Calcium (mg/dL) Date Value 11/18/2020 9.8 Calcium, Total (mg/dL) Date Value 12/04/2022 9.4 INR: Lipid Profile: Total Cholesterol, Nonfasting Date Value Ref Range Status 08/09/2022 144 <200 mg/dL Final Comment: <200 mg/dL, Desirable 200-239 mg/dL, Borderline high >239 mg/dL, High HDL Cholesterol, Nonfasting Date Value Ref Range Status 08/09/2022 56 >39 mg/dL Final Comment: 40-59 mg/dL, Acceptable >59 mg/dL, High: Negative risk factor for coronary heart disease <40 mg/dL, Low: Positive risk factor for coronary heart disease LDL Cholesterol, Nonfasting Date Value Ref Range Status 08/09/2022 78 <100 mg/dL Final Comment: <100 mg/dL, Optimal 100-129 mg/dL, Near optimal/above optimal 130-159 mg/dL, Borderline high 160-189 mg/dL, High >189 mg/dL, Very high Secondary prevention optimal LDL Cholesterol levels are recommended to be < 70 mg/dL Triglycerides, Nonfasting Date Value Ref Range Status 08/09/2022 52 <150 mg/dL Final Comment: <150 mg/dL, Normal 150-199 mg/dL, Borderline high 200-499 mg/dL, High >499 mg/dL, Very high Hemoglobin A1C: No results found for: HGBA1C TSH: No results found for: TSHREFL Prior Cardiac Testing Holter Assessment and Plan: 67 years old gentleman with cardiomyopathy and orthostatic hypotension ASSESSMENT/PLAN: 1. Cardiomyopathy, nonischemic (HCC) [I42.8] - ICD9: 425.4, ICD10: I42.8 (primary diagnosis) Last echocardiogram showed ejection fraction 40% Patient is not on any cardiac medication due to orthostatic hypotension and low blood pressure 2. Orthostatic hypotension [I95.1] - ICD9: 458.0, ICD10: I95.1 Conservative measures with compression stocking increase hydration and salt intake Dl Wheeler MD Follow up plannin months Electronically signed by Dl Wheeler MD on February 05, 2023, 12:14 PM The above note was partially created using a dictation recognition software. A reasonable attempt has been made to correct any errors. documented in this encounter [facility] 02-02-2023 Miscellaneous Notes Last seen pcp 01/01/23. Next appt with pcp 04/30/23. Patient has been identified by name and date of : Yes Requested Prescriptions Pending Prescriptions Disp Refills simvastatin (ZOCOR) 20 mg tablet 90 tablet 3 Sig: Take 1 tablet by mouth daily at bedtime. RX INSTRUCTIONS: Patient aware RX will be sent to pharmacy. No need to notify patient. Xiomy Herbert documented in this encounter [facility] 01-29-2023 Miscellaneous Notes TC to sister Angie, who voiced understanding about seeing the epilepsy clinic. States she wants to see someone at [place]. Advised her that we can send the referral over, however we will need the information. Agreeable and will send via the information. Lindsey Bonilla LPN Pt should follow up with epilepsy. Please aid in making appt. Mal Carpio MD Pt sister calls and states that pt was taking the Depakote and it gave him side effects such as glassy eyes and lead feet. Sister made the call to take him off of the depakote and restart on the Vimpat 50 mg as before. Lindsey Bonilla LPN documented in this encounter [facility] 01-16-2023 Miscellaneous Notes Holter monitor results on chart and have been signed by . Indy Vargas RN Called and spoke with Angie. Made the suggestion that she reach out to [facility] about compression stocking sizing. Patient currently has monitor on. Will follow up in a month for results. Indy Vargas RN Patient sister Angie called she said his compression socks are way to tight, she can't get them on him, and he has a 30 day heart monitor on it was put on 12/11 she wants to know what to do after that? Will Dr Wheeler call him? She can be called at [phone] please advise documented in this encounter [facility] 01-12-2023 Note HNO ID: [id number] Author: Mal Carpio Jr., MD Service: ? Author Type: Physician Type: Progress Notes Filed: 01/12/2023 2:37 PM Note Text: ESTABLISHED PATIENT VISIT CHIEF COMPLAINT: Follow Up HISTORY OF PRESENT ILLNESS: Inna Ortiz is a 67 year old male, BMI 17.46 kg/m2 with a PMH significant for and per d/c summary of 12/04/22 from EMU: Inna Ortiz is a 67 year old male with hx of reported TBI, strokes, AND DD who presented with recurrent episodes concerning for seizures witnessed by his family. They reports syncopal like episodes that occur on the commode AND infrequent episodes of blinking/ zoning out and nodding off. Prior EEG AND Sleep test unremarkable. Recent CTH WO shows encephalomalacia in the right frontal lobe. Inna presented to the [facility] EMU on 12/04/2022 for diagnosis. He was on no seizure medication prior to admission. Patient noted to have Interictal R FT sharp waves, no seizures or episodes were recorded. Please see separate video-EEG report for details. Prior to discharge, antiepileptic medication Vimpat was started at a dose of 50 mg BID. He will continue to follow up with Dr. Lester regarding his epilepsy and will follow up with cardiology on 12/11 regarding concern for syncope and a 30 day Holter event monitor was ordered. Family concerned that patient is now more tired since on Vimpat 50mg BID. However, they state he is no longer having the episodes for which he previously presented for. No other changes since on meds. Still unclear patient's sleep-wake cycle. No other new complaints. Pt daughter does not want to follow up with Epilepsy, stating [place] and [place] too far. REVIEW OF SYSTEMS GENERAL:No weight loss, malaise or fevers. HEENT:Negative for frequent or significant headaches, No changes in hearing or vision, no nose bleeds or other nasal problems RESPIRATORY: Negative for cough, wheezing or shortness of breath. CARDIOVASCULAR: Negative for chest pain, leg swelling or palpitations. NEURO: See HPI. LAB/IMAGING: Those performed since patient's last visit have been reviewed. WBC (k/uL) Date Value 12/04/2022 7.84 RBC (m/uL) Date Value 12/04/2022 5.31 Hemoglobin (g/dL) Date Value 12/04/2022 14.6 Hematocrit (%) Date Value 12/04/2022 45.8 MCV (fL) Date Value 12/04/2022 86.3 MCH (pg) Date Value 12/04/2022 27.5 MCHC (g/dL) Date Value 12/04/2022 31.9 RDW-CV (%) Date Value 12/04/2022 13.7 Platelet Count (k/uL) Date Value 12/04/2022 198 MPV (fL) Date Value 12/04/2022 10.2 Glucose (mg/dL) Date Value 12/04/2022 94 BUN (mg/dL) Date Value 12/04/2022 15 Creatinine (mg/dL) Date Value 12/04/2022 0.88 Sodium (mmol/L) Date Value 12/04/2022 142 Potassium (mmol/L) Date Value 12/04/2022 4.3 Chloride (mmol/L) Date Value 12/04/2022 105 CO2 (mmol/L) Date Value 12/04/2022 29 Protein, Total (g/dL) Date Value 12/04/2022 6.8 Albumin (g/dL) Date Value 12/04/2022 4.3 Calcium, Total (mg/dL) Date Value 12/04/2022 9.4 Alkaline Phosphatase (U/L) Date Value 12/04/2022 88 Bilirubin, Total (mg/dL) Date Value 12/04/2022 0.5 AST (U/L) Date Value 12/04/2022 15 ALT (U/L) Date Value 12/04/2022 9 (L) Hep C Antibody IA (no units) Date Value 05/02/2014 Negative MEDICATIONS: famotidine (PEPCID) 20 mg tablet Take 1 tablet by mouth once daily. (Per GI) lacosamide (VIMPAT) 50 mg tab Take 1 tablet by mouth two times a day for 180 days. blood sugar diagnostic (BLOOD GLUCOSE TEST) test strip Test blood sugar(s) 2 times daily. Dx: Type 2 DM - Uncontrolled E11.65 Insulin: No oxybutynin ER (DITROPAN XL) 10 mg 24 hr tablet Take 1 tablet by mouth once daily. docusate sodium (COLACE) 100 mg capsule Take 200 mg by mouth daily with breakfast. simvastatin (ZOCOR) 20 mg tablet Take 1 tablet by mouth daily at bedtime. cyanocobalamin (VITAMIN B-12) 1,000 mcg tab Take 1 tablet by mouth once daily. nitroglycerin (NITROLINGUAL) 400 mcg/spray spray Dissolve 1 [place] under the tongue every 5 minutes as needed. fluticasone (FLONASE) 50 mcg/actuation nasal spray Use 2 Sprays in each nostril once daily. Rinse mouth after use. Lactobacillus rhamnosus GG (CULTURELLE ORAL) Take 1 capsule by mouth once daily. glucosamine/chondr victoria A sod (OSTEO BI-FLEX ORAL) Take by mouth once daily. Lancets lancets Test blood sugar(s) two times daily. Dx: E11.9. Insulin: No aspirin, enteric coated (ECOTRIN LOW STRENGTH) 81 mg EC tablet Take 1 tablet by mouth once daily. HISTORIES PAST MEDICAL HISTORY Diagnosis Date CONVULSIONS, OTHER 10/10/2004 none since age 10 Dysmetabolic syndrome X 10/10/2004 LATE EFF,CV DIS,UNSPECIFIED 10/10/2004 Obesity, unspecified 10/10/2004 Other primary cardiomyopathies 04/20/2014 Prostate nodule 03/06/2022 Stroke (cerebrum) (HCC) Type II or unspecified type diabetes mellitus without mention of complication, not stated as uncontrolle (more content not included)... [facility] 01-12-2023 Note HNO ID: [id number] Author: Shira Villafuerte LPN Service: ? Author Type: ? Type: Progress Notes Filed: 01/12/2023 2:37 PM Note Text: There is no data to display for this encounter [facility] 01-01-2023 Note HNO ID: [id number] Author: Jean Carlos Viera RN Service: ? Author Type: Registered Nurse Type: Progress Notes Filed: 01/01/2023 3:21 PM Note Text: TRANSITION CARE MANAGEMENT (TCM) FOLLOW-UP NOTE Provider Action/FYI: TCM Chart review. Pt had PCP f/u today. Telephone outreach deferred. Appointments for Next 60 Days Date Time Provider Location Dept Phone 01/01/2023 9:00 AM ELIZA ZAMORA [facility] [phone] 01/12/2023 2:00 PM MAL CARPIO JR [facility] [phone] Discharge Network Status: In-Network Discharge Summary: Pt discharged from [facility] on 12/06/22. Admitted for: Syncope and collapse Flight Communications Specialist plan for next outreach: No further follow up needed at this time [facility]OC Education Ordered -: No Signature Jean Carlos Viera RN January 01, 2023 [facility] 01-01-2023 History of Presen t illness Narrative TRANSITION CARE MANAGEMENT (TCM) FOLLOW-UP NOTE Provider Action/FYI: TCM Chart review. Pt had PCP f/u today. Telephone outreach deferred. Appointments for Next 60 Days Date Time Provider Location Dept Phone 01/01/2023 9:00 AM ELIZA ZAMORA [facility] [phone] 01/12/2023 2:00 PM MAL CARPIO JR [facility] [phone] Discharge Network Status: In-Network Discharge Summary: Pt discharged from [facility] on 12/06/22. Admitted for: Syncope and collapse Flight Communications Specialist plan for next outreach: No further follow up needed at this time QUOC Education Ordered -: No Signature Jean Carlos Viera RN January 01, 2023 documented in this encounter [facility] 01-01-2023 Note [place] [facility] [place] IN[place]TIZ ([id number]) 1955 M Date Time Provider Department 01/01/23 JEAN CARLOS [facility] [place] During your visit today, we recorded the following information about you: Jean Carlos Viera RN 01/01/2023 3:21 PM Signed TRANSITION CARE MANAGEMENT (TCM) FOLLOW-UP NOTE Provider Action/FYI: TCM Chart review. Pt had PCP f/u today. Telephone outreach deferred. Appointments for Next 60 Days Date Time Provider Location Dept Phone 01/01/2023 9:00 AM ELIZA ZAMORA [facility] [phone] 01/12/2023 2:00 PM MAL CARPIO JR [facility] [phone] Discharge Network Status: In-Network Discharge Summary: Pt discharged from [facility] on 12/06/22. Admitted for: Syncope and collapse Flight Communications Specialist plan for next outreach: No further follow up needed at this time QUOC Education Ordered -: No Signature Jean Carlos Viera RN January 01, 2023 Allergies As of Date: 01/01/2023 Noted Allergy Reaction MACROBID (NITROFURANTOIN MONOHYD/*05/10/2021 2 - Rash CEFDINIR 05/05/2021 2 - Rash Date Reviewed: 01/01/2023 Reviewed by: Dinora Peña LPN - Fully Assessed Reason for Visit: Transition Of Care [4074] Cmt: TCM follow up [facility] Discharge 12/06/22 Prescriptions as of 01/01/2023 - lacosamide (VIMPAT) 50 mg tab Take 1 tablet by mouth two times a day for 180 days. - Miscellaneous Medical Supply (BLOOD PRESSURE CUFF) 1 Each as needed. PEDIATRIC BP CUFF SIZE 10 - midodrine (PROAMATINE) 2.5 mg tablet Take 1 tablet by mouth twice daily. - blood sugar diagnostic (BLOOD GLUCOSE TEST) test strip Test blood sugar(s) 2 times daily. Dx: Type 2 DM - Uncontrolled E11.65 Insulin: No - famotidine (PEPCID) 20 mg tablet Take 1 tablet by mouth once daily. (Per GI) - oxybutynin ER (DITROPAN XL) 10 mg 24 hr tablet Take 1 tablet by mouth once daily. - docusate sodium (COLACE) 100 mg capsule Take 200 mg by mouth daily with breakfast. - simvastatin (ZOCOR) 20 mg tablet Take 1 tablet by mouth daily at bedtime. - cyanocobalamin (VITAMIN B-12) 1,000 mcg tab Take 1 tablet by mouth once daily. - nitroglycerin (NITROLINGUAL) 400 mcg/spray spray Dissolve 1 [place] under the tongue every 5 minutes as needed. - fluticasone (FLONASE) 50 mcg/actuation nasal spray Use 2 Sprays in each nostril once daily. Rinse mouth after use. - Lactobacillus rhamnosus GG (CULTURELLE ORAL) Take 1 capsule by mouth once daily. - cholecalciferol, vitamin D3, (VITAMIN D3 ORAL) Take by mouth. - glucosamine/chondr victoria A sod (OSTEO BI-FLEX ORAL) Take by mouth once daily. - Lancets lancets Test blood sugar(s) two times daily. Dx: E11.9. Insulin: No - aspirin, enteric coated (ECOTRIN LOW STRENGTH) 81 mg EC tablet Take 1 tablet by mouth once daily. 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]10/10/2004 Primary hypertension [I10] 10/10/2004 Obesity, unspecified [E66.9] 10/10/2004 10/31/2016 Other abnormal blood chemistry [R79.89] 10/10/2004 04/21/2014 Other convulsions (HCC) [R56.9] 10/10/2004 04/21/2014 Delay in development [R62.50] 10/10/2004 Family history of diabetes mellitus [Z83.3] 10/11/2004 04/12/2018 Hyperlipidemia [E78.5] 07/17/2005 Hypokalemia [E87.6] 06/30/2009 04/21/2014 Type 2 diabetes mellitus with polyneuropathy (H*02/20/2014 Cardiomyopathy, nonischemic (HCC) [I42.8] 04/20/2014 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ronary artery of na*04/23/2015 07/19/2022 Left inguinal hernia [K40.90] 05/16/2016 10/31/2016 Overactive bladder [N32.81] 08/14/2018 Occult GI bleeding [R19.5] 08/28/2019 05/19/2020 Acid indigestion [K30] 05/19/2020 Gait abnormality [R26.9] 04/20/2021 Urinary incontinence [R32] 05/30/2021 Weight loss, abnormal [R63.4] 09/01/2021 Dysphagia [R13.10] 09/01/2021 Orthostatic hypotension [I95.1] [I95.1] 09/04/2022 Seizure-like activity (HCC) [R56.9] 12/04/2022 12/06/2022 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 Author Type: Physician Type: Progress Notes Filed: 02/03/2023 11:16 PM Note Text: This note was created using [employer]. Subjective Inna Ortiz is a 67 year old male. Patient presents with: Follow Up SUBJECTIVE: Inna Ortiz is a 67 year old year old gentleman here today for follow up appointment for review of medical conditions. Still eating well with weight staying about the same . BPs staying 100 to 120 range over 60 to 70s range. States that was irritable mood this AM. States that had November appointment with alterations expert but was called before the appointment to tell them he did not have an appointment--listed as NoShow on appointment. PAST MEDICAL HISTORY Diagnosis Date CONVULSIONS, OTHER 10/10/2004 none since age 10 Dysmetabolic syndrome X 10/10/2004 LATE EFF,CV DIS,UNSPECIFIED 10/10/2004 Obesity, unspecified 10/10/2004 Other primary cardiomyopathies 04/20/2014 Prostate nodule 03/06/2022 Stroke (cerebrum) (HCC) Type II or unspecified type diabetes mellitus without mention of complication, not stated as uncontrolled 02/20/2014 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) 10/10/2004 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 blood sugar diagnostic (BLOOD GLUCOSE TEST) test strip Test blood sugar(s) 2 times daily. Dx: Type 2 DM - Uncontrolled E11.65 Insulin: No famotidine (PEPCID) 20 mg tablet Take 1 tablet by mouth once daily. (Per GI) oxybutynin ER (DITROPAN XL) 10 mg 24 hr tablet Take 1 tablet by mouth once daily. docusate sodium (COLACE) 100 mg capsule Take 200 mg by mouth daily with breakfast. simvastatin (ZOCOR) 20 mg tablet Take 1 tablet by mouth daily at bedtime. cyanocobalamin (VITAMIN B-12) 1,000 mcg tab Take 1 tablet by mouth once daily. nitroglycerin (NITROLINGUAL) 400 mcg/spray spray Dissolve 1 [place] under the tongue every 5 minutes as needed. fluticasone (FLONASE) 50 mcg/actuation nasal spray Use 2 Sprays in each nostril once daily. Rinse mouth after use. Lactobacillus rhamnosus GG (CULTURELLE ORAL) Take 1 capsule by mouth once daily. glucosamine/chondr victoria A sod (OSTEO BI-FLEX ORAL) Take by mouth once daily. Lancets lancets Test blood sugar(s) two times daily. Dx: E11.9. Insulin: No aspirin, enteric coated (ECOTRIN LOW STRENGTH) 81 mg EC tablet Take 1 tablet by mouth once daily. Miscellaneous Medical Supply (BLOOD PRESSURE CUFF) 1 Each as needed. PEDIATRIC BP CUFF SIZE 10 midodrine (PROAMATINE) 2.5 mg tablet Take 1 tablet by mouth twice daily. cholecalciferol, vitamin D3, (VITAMIN D3 ORAL) Take by mouth. No current facility-administered medications for this visit. Review of Systems Objective BP 126/68 Pulse 62 Temp 36.2 ?C (97.2 ?F) Resp 18 Wt 53.8 kg (118 lb 9.6 oz) SpO2 100% BMI 17.51 kg/m? Last 5 Encounter Wt Readings: Date: Wt: 01/01/2023 53.8 kg (118 lb 9.6 oz) 11/27/2022 52.6 kg (116 lb) 11/24/2022 53.9 kg (118 lb 14.4 oz) 10/20/2022 53.8 kg (118 lb 9.6 oz) 09/04/2022 53.7 kg (118 lb 6.4 oz) No waist measurement recorded Estimated body mass index is 17.51 kg/m? as calculated from the following: Height as of 12/04/22: 175.3 cm (5' 9 ). Weight as of this encounter: 53.8 kg (118 lb 9.6 oz). Last 5 Encounter BP Readings: Date: BP: 01/01/2023 126/68 11/27/2022 108/72 11/24/2022 116/73 10/20/2022 120/62 09/04/2022 105/61 Physical Exam Vitals reviewed. Constitutional: Appearance: Normal appearance. Eyes: Conjunctiva/sclera: Conjunctivae normal. Cardiovascular: Rate and Rhythm: Normal rate and regular rhythm. Heart sounds: Normal heart sounds. Pulmonary: Effort: Pulmonary effort is normal. Breath sounds: Normal breath sounds. Skin: General: Skin is warm and dry. Neurological: General: No focal deficit present. Mental Status: He is alert and oriented to person, place, and time. Psychiatric: Attention and Perception: Attention normal. Mood and Affect: Affect is blunt and flat. Behavior: Behavior is cooperative. Assessment and Plan Encounter Diagnosis ICD-10-CM 1. Type 2 diabetes mellitus with polyneuropathy (HCC) E11.42 HGB A1C COMP METABOLIC PANEL Tight control--discussed with sister and mother does not need to be tightly controlled and may loosen up on diet restrictions for carbs 2. Underweight R63.6 As noted above. Liberalize diet and increase calorie intake. Encouraged to have food every 3 hours at least 3. Dysphagia, unspecified type R13.10 Tends to eat too fast. Work on slowing down pace of eating by making sure gets enough calories every meal 4. Primary hypertension I10 COMP METABOLIC PANEL CBC Well controlled. Continue present management 5. Daytime sle (more content not included)... [facility] 12-12-[address] TC place to sister, Angie. I advised of below and they would be okay seeing epilepsy, need consult placed. Put patient on cancellation list for as well. Angie states that they were told to follow with Dr. Carpio and not the epilepsy clinic. Please place consult and advise. Lindsey Bonilla LPN For access, recommend patient follow up with Epilepsy. Mal Carpio MD Sister (Angie) calls to request a sooner follow up for patient with Dr. Carpio than April 062023. Patient diagnosed with focal epilepsy at recent [facility] stay and she feels that appointment is too far out. Hospital discharge instructions say to follow up in 3 to 6 months. Angie requests call back from Dr. Carpio's office at [phone]. Sasha Saravia RN documented in this encounter [facility] 12-09-2022 Note HNO ID: [id number] Author: Note, Interface Service: ? Author Type: ? Type: Progress Notes Filed: 12/09/2022 5:06 AM Note Text: Epic Scheduled Downtime: 12/09/2022 1:00:00 AM to 12/09/2022 1:28:00 AM [facility] 12-08-2022 Miscellaneous Notes PATIENT INFORMATION Record ID: [id number] Patient Name: [facility] Hospital: [facility] Center Point: Neurological Center Point Attending: Deisi Churchill Center: Epilepsy Center INSTRUCTIONS All Clear SN to remind patient of next upcoming appointment date, time, location All Clear All Clear All Clear SURVEY INFORMATION Medical/Nurse Assistant In Nursing: Jaqueline eB 1. Your discharge instructions are important in guiding you through the recovery process. Is there anything I could help you clarify on your discharge instructions? (Standard Question) No 2. Do you have your follow up appointment related to your hospital stay scheduled within the next 30 days? (Standard Question) Yes MA/SN Notes: March Follow up Appt. 3. Do you have all the necessary equipment and supplies at home? (Standard Question) Yes 4. Many patients have concerns about their medications once they are home. Do you have any questions about getting or taking your medications? (Standard Question) No MA/SN Notes: Trouble with getting medications from pharmacy. 5. Do you have any new or different symptoms? (Standard Question) No MA/SN Notes: sleeping more than usual. documented in this encounter [facility] 12-08-2022 Note HNO ID: [id number] Author: Sarahy Bauer RN Service: ? Author Type: Registered Nurse Type: Progress Notes Filed: 12/08/2022 10:52 AM Note Text: TRANSITIONAL CARE MANAGEMENT (TCM) COMMUNITY MONITORING PROGRAM Provider Action/FYI: Second attempt for initial outreach to pt for hospital discharge. No answer, left VM for sister Angie to return my call. SUMMARY: Discharge Network Status: In-Network Discharge Pt discharged from [facility] on 12/06/22. Admitted for: Syncope and collapse Contact made with patient: No - 2nd unsuccessful attempt - end outreach and close encounter Outreach ended JENN Smith, brain picker Mobile Phlebotomist [facility] 12-07-2022 Note Patient Outreach [place] [facility] INNA ORTIZ ([id number]) 1955 M Date Time Provider Department 12/07/22 JEAN CARLOS [facility] During your visit today, we recorded the following information about you: Jean Carlos Viera RN 12/08/2022 10:52 AM Signed TCM Home Visit Referral Source of Stratification: [facility] Admission Status: Discharged Readmission Risk Score: 10 JONI Score: 6 Patient meets program referral criteria: No Patient does not qualify for High Risk TCM Home Visit program due to: Discharged home, does not meet program criteria Jean Carlos Viera RN December 07, 2022 11:29 AM TRANSITIONAL CARE MANAGEMENT (TCM) COMMUNITY MONITORING PROGRAM Provider Action/FYI: Outreach attempt #1 Unable to reach patient. Left message. Will try again later Appointments for Next 60 Days Date Time Provider Location Dept Phone 12/11/2022 1:00 PM [facility] [phone] 01/01/2023 9:00 AM ELIZA ZAMORA [facility] [phone] SUMMARY: Discharge Network Status: In-Network Discharge Pt discharged from [facility] on 12/06/22. Admitted for: Syncope and collapse IMPORTANT TESTS AND PROCEDURES: Continuous Video EEG HOSPITAL COURSE: Inna Ortiz is a 67 year old male with hx of reported TBI, strokes, AND DD who presented with recurrent episodes concerning for seizures witnessed by his family. They reports syncopal like episodes that occur on the commode AND infrequent episodes of blinking/ zoning out and nodding off. Prior EEG AND Sleep test unremarkable. Recent CTH WO shows encephalomalacia in the right frontal lobe. Inna presented to the [facility] EMU on 12/04/2022 for diagnosis. He was on no seizure medication prior to admission. Patient noted to have Interictal R FT sharp waves, no seizures or episodes were recorded. Please see separate video-EEG report for details. Prior to discharge, antiepileptic medication Vimpat was started at a dose of 50 mg BID. He will continue to follow up with Dr. Lester regarding his epilepsy and will follow up with cardiology on 12/11 regarding concern for syncope and a 30 day Holter event monitor was ordered. Transitions of Care Critical Issues: SPECIALIST FOLLOW-UP: Dr. Lester (neurology) AND cardiology JULES MEDICATION CHANGES: Vimpat 50 mg BID started LABS AND PROCEDURES PENDING AT DISCHARGE: Finalized Video EEG Report Contact made with patient: No - next outreach attempt will be on next business day Outreach ended BRIAN Carter Annette, RN 12/08/2022 10:52 AM Signed TRANSITIONAL CARE MANAGEMENT (TCM) COMMUNITY MONITORING PROGRAM Provider Action/FYI: Second attempt for initial outreach to pt for hospital discharge. No answer, left VM for sister Angie to return my call. SUMMARY: Discharge Network Status: In-Network Discharge Pt discharged from [facility] on 12/06/22. Admitted for: Syncope and collapse Contact made with patient: No - 2nd unsuccessful attempt - end outreach and close encounter Outreach ended JENN Smith, brain picker Mobile Phlebotomist [facility] Allergies As of Date: 12/07/2022 Noted Allergy Reaction MACROBID (NITROFURANTOIN MONOHYD/*05/10/2021 2 - Rash CEFDINIR 05/05/2021 2 - Rash Date Reviewed: 12/05/2022 Reviewed by: Catherine Palencia, BRIAN - Fully Assessed Reason for Visit: Transition Of Care [4074] Cmt: TCM Initial [facility] Discharge 12/06/22 Prescriptions as of 12/08/2022 - aspirin, enteric coated (ECOTRIN LOW STRENGTH) 81 mg EC tablet Take 1 tablet by mouth once daily. - blood sugar diagnostic (BLOOD GLUCOSE TEST) test strip Test blood sugar(s) 2 times daily. Dx: Type 2 DM - Uncontrolled E11.65 Insulin: No - cholecalciferol, vitamin D3, (VITAMIN D3 ORAL) Take by mouth. - cyanocobalamin (VITAMIN B-12) 1,000 mcg tab Take 1 tablet by mouth once daily. - docusate sodium (COLACE) 100 mg capsule Take 200 mg by mouth daily with breakfast. - famotidine (PEPCID) 20 mg tablet Take 1 tablet by mouth once daily. (Per GI) - fluticasone (FLONASE) 50 mcg/actuation nasal spray Use 2 Sprays in each nostril once daily. Rinse mouth after use. - glucosamine/chondr victoria A sod (OSTEO BI-FLEX ORAL) Take by mouth once daily. - lacosamide (VIMPAT) 50 mg tab Take 1 tablet by mouth two times a day for 180 days. - Lactobacillus rhamnosus GG (CULTURELLE ORAL) Take 1 capsule by mouth once daily. - Lancets lancets Test blood sugar(s) two times daily. Dx: E11.9. Insulin: No - midodrine (PROAMATINE) 2.5 mg tablet Take 1 tablet by mouth twice daily. - Miscellaneous Medical Supply (BLOOD PRESSURE CUFF) 1 Each as needed. PEDIATRIC BP CUFF SIZE 10 - nitroglycerin (NITROLINGUAL) 400 mcg/spray spray Dissolve 1 [place] under the tongue every 5 minutes as needed. - oxybutynin ER (DITROPAN XL) 10 mg 24 hr tablet Take 1 tablet by mouth once d (more content not included)... [facility] 12-07-2022 Note HNO ID: [id number] Author: Jean Carlos Viera RN Service: ? Author Type: Registered Nurse Type: Progress Notes Filed: 12/08/2022 10:52 AM Note Text: TCM Home Visit Referral Source of Stratification: [facility] Admission Status: Discharged Readmission Risk Score: 10 JONI Score: 6 Patient meets program referral criteria: No Patient does not qualify for High Risk TCM Home Visit program due to: Discharged home, does not meet program criteria Jean Carlos Viera RN December 07, 2022 11:29 AM TRANSITIONAL CARE MANAGEMENT (TCM) COMMUNITY MONITORING PROGRAM Provider Action/FYI: Outreach attempt #1 Unable to reach patient. Left message. Will try again later Appointments for Next 60 Days Date Time Provider Location Dept Phone 12/11/2022 1:00 PM DL WHEELER [facility] [phone] 01/01/2023 9:00 AM SERA ELIZA Blanca [facility] [phone] SUMMARY: Discharge Network Status: In-Network Discharge Pt discharged from [facility] on 12/06/22. Admitted for: Syncope and collapse IMPORTANT TESTS AND PROCEDURES: Continuous Video EEG HOSPITAL COURSE: Inna Ortiz is a 67 year old male with hx of reported TBI, strokes, AND DD who presented with recurrent episodes concerning for seizures witnessed by his family. They reports syncopal like episodes that occur on the commode AND infrequent episodes of blinking/ zoning out and nodding off. Prior EEG AND Sleep test unremarkable. Recent CTH WO shows encephalomalacia in the right frontal lobe. Inna presented to the [facility] EMU on 12/04/2022 for diagnosis. He was on no seizure medication prior to admission. Patient noted to have Interictal R FT sharp waves, no seizures or episodes were recorded. Please see separate video-EEG report for details. Prior to discharge, antiepileptic medication Vimpat was started at a dose of 50 mg BID. He will continue to follow up with Dr. Lester regarding his epilepsy and will follow up with cardiology on 12/11 regarding concern for syncope and a 30 day Holter event monitor was ordered. Transitions of Care Critical Issues: SPECIALIST FOLLOW-UP: Dr. Lester (neurology) AND cardiology JULES MEDICATION CHANGES: Vimpat 50 mg BID started LABS AND PROCEDURES PENDING AT DISCHARGE: Finalized Video EEG Report Contact made with patient: No - next outreach attempt will be on next day Outreach ended Jean Carlos Viera RN [facility] 12-06-2022 Note HNO ID: [id number] Author: Dl Wheeler MD Service: Cardiovascular Surgery Author Type: Physician Type: Procedures Filed: 01/15/2023 6:38 AM Note Text: [facility] Name: INNA ORTIZ : 1955 Ordering provider: CALDERON CALVO Indication: R55 Syncope and collapse Type of monitor: Event Monitor Enrollment dates: 12/11/2022 - 01/09/2023 [facility] 12-06-2022 Note HNO ID: [id number] Author: Lissette Anders RN Service: Care Management Author Type: Registered Nurse Type: Care Mgt Progress Note Filed: 12/06/2022 11:37 AM Note Text: CARE MANAGEMENT DISCHARGE NOTE SERVICE DATE: December 06, 2022 SERVICE TIME: 11:36 AM Admission Date: 12/04/2022 LOS: 2 days Discharge Arrangement Discharge Arrangement: Home with Relative Services Arranged Provider Name: Na Phone: NA Caregiver Assessment Caregiver is ready, willing and able to meet the patient's needs as recommended by the inter-professional team: Yes Name of Caregiver: Sister Angie Transportation Arrangements Transportation Arrangements: Car Date of Trip: 12/06/22 Destination: Home Handoff Communication: Handoff to: Primary Care Physician Primary Care Physician Name/Phone: Dr Zamora [phone] Additional Information: Patient is discharging home with assistance of sister Angie. Sister to provide discharge transportation. SIGNATURE: Lissette Anders RN PATIENT NAME: Inna Ortiz DATE: December 06, 2022 TIME: 11:36 AM CONTACT #: [phone] [facility] 12-06-2022 Note HNO ID: [id number] Author: Lissette Anders RN Service: Care Management Author Type: Registered Nurse Type: Samra Mgt Progress Note Filed: 12/06/2022 9:32 AM Note Text: CARE MANAGEMENT PROGRESS NOTE SERVICE DATE: 12/06/2022 SERVICE TIME: 9:31 AM LOS: 2 days Post-Acute Discharge Planning Patient Goal(s): General wellness, Be able to go home [place] Explained: Discharge Planning Participant(s): Guardian Patient/Family Comments: Anticipated # of Days Until Discharge: Transport at Discharge: Transportation Arrangements: Car Destination: home Needs Prior to Discharge: Needs Prior to Discharge: OT/PT Evaluation, To Be Determined, Discharge Prescriptions IMM Follow Up Copy Given: Yes Copy given to:: Patient Treatment Counselor Treatment Counselor Name/Relationship: Sister/Legal Guardin Angie Method: By Phone (verbal confirmation obtained.) Post-Acute Discharge Plan: Patient from home with sister who is caregiver and legal guardian. Family to provide discharge transportation. Planned admission. No CM needs at this time. Will follow for transitional care planning. SIGNATURE: Lissette Anders RN PATIENT NAME: Inna Ortiz DATE: December 06, 2022 TIME: 9:31 AM PAGER/CONTACT #: [phone] [facility] 12-05-2022 Note HNO ID: [id number] Author: Calderon Calvo APRN.TEAM MANAGER Service: Neurology Adult Epilepsy Author Type: Nurse Practitioner Type: Progress Notes Filed: 12/05/2022 9:41 AM Note Text: Attestation signed by Deisi Churchill MD at 12/05/2022 1:16 PM EPILEPSY CENTER ATTENDING NOTE [facility] Epilepsy Monitoring Unit Progress Note Date of Service: December 05, 2022 [facility] STAFF PHYSICIAN NOTE OF PERSONAL INVOLVEMENT IN CARE Patient was interviewed and examined by me on separate attending rounds this morning with nurse practitioner, Calderon Calvo CNP. I have reviewed the history, exam, diagnosis, and plan obtained and documented by the nurse practitioner as above. I performed my own [id number] assessment and personally participated in the jules components. The following comments revise or confirm these. I have discussed the case and management of the patient's care with the care team. Clinical overnight update: No episodes. No complaints. Patient's sister and co-guardian at bedside. She described the episodes at home as staring while sitting on th commode before collapsing. There are no convulsions. They were diagnosed as vasovagal but he does not strain or has not started defecating or urinating when they happen. He has history of heart failure. He had traumatic brain injury as a child and history of stroke in 1977. History could not be obtained from the patient due to language deficit. Pertinent exam: Normal neurological examination Data reviewed: Continuous video EEG recording was personally reviewed by myself and the results of the evaluation to date are summarized below. Interictal findings: right FT sharp waves Ictal findings: none IMPRESSION: 67-year-old man presents to the EMU for evaluation of recurrent episodes of loss of consciousness, all of which reportedly have occurred while on commode. Etiology uncertain but given association with activity, and struggles during BMs, would suspect possible vasovagal events. However, differential includes cardiac arrhythmia or confirmed orthostatic hypotension for which pt was started on midodrine today by cardiology. Cardiology following for such causes, but also need to include possible seizure disorder given history of known TBI and strokes with cortical injuries and prior seizures. This includes possible behaviors of nodding off during the day or zoning out as possible seizures. Recent CTH WO shows encephalomalacia in the right frontal lobe. EEG recorded frequent runs of right FT sharp waves. I discussed differential with the sister at bedside including seizures and cardiac arrhythmias. Primary neurologist: Dr. Carpio Admit Date: 12/04 AEDs Home: none Here: 12/04: none 12/05: start Vimpat 50 mg BID PLAN: Continuous video-EEG monitoring continues Start Vimpat 50 mg BID Seizure precautions Rescue plan in place: 2mg of lorazepam (Ativan) IV as needed for prolonged motor epileptic seizure greater than 3 minutes and or 3rd motor epileptic seizure within 8 hours. Discharge planning tomorrow if stable overnight Follow-up after discharge with Dr. Carpio He will need a 30-day heart monitor on discharge; already has a cardiology appointment ton 12/11 The treatment plan was discussed in detail with the patient's sister at bedside. Time for questions was given and answers were discussed. She agreed with the treatment plan. Deisi Churchill MD Staff Physician [facility] Epilepsy Center Personal Pager and Cell Office: [phone] For urgent EEG review, call the Epilepsy Continuous Monitoring Unit (ECMU) at [facility] [phone] or [phone]. For overnight issues, 7pm to 7am, [place] [phone]. For in house night coverage of emergencies, call [facility] pager [phone]. NEUROLOGY EPILEPSY MONITORING UNIT (EMU) PROGRESS NOTE NIGHT AND WEEKEND COVERAGE: After 5 pm and over the weekends, please page [phone] to contact the epilepsy provider mergers and acquisitions manager Subjective No complaints. No seizures overnight. HOME ANTI EPILEPTIC DRUGS: none ANTI EPILEPTIC DRUGS HERE: none Objective 12/04/22 1744 12/04/22200512/05/22 0500 12/05/22 0854 BP: 130/67 114/71 128/68 110/70 Pulse: 84 82 73 93 Resp: 17 11 14 15 Temp: 36.8 ?C (98.2 ?F) 36.8 ?C (98.3 ?F) 36.6 ?C (97.9 ?F) TempSrc: Oral Oral Temporal SpO2: 100% 100% 99% Weight: Height: EKG, TELEMETRY, EEG, MONITORS AND ALARMS ARE ON: Yes ? Written order: Remains standing. SEIZURE DETECTION SOFTWARE ON: Yes ? senior maintenance technician has been notified: Yes ? returned goods sorter has been notified: Yes EXAM: General: awake and answers simple questions, o (more content not included)... [facility] documented as of this encounter (statuses as of 12/08/2022) [facility]10-09-2023 History of Past illness Narrative* Problem Noted Date Diagnosed Date Resolved Date Seizure-like activity 12/04/20222022 Occult GI bleeding 08/28/2019 1 Left inguinal hernia 05/16/2016 017 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 04/23/20152022 Hypokalemia 06/30/2009 04/21/2014 Family history of diabetes mellitus 10/11/2004 04/12/2018 Obesity, unspecified 10/10/2004 017 Other abnormal blood chemistry 10/10/2004 04/21/2014 Other convulsions 10/10/2004 04/21/2014 documented as of this encounter (statuses as of 12/12/2022) [facility] History of Past illness Narrative* Problem Noted Date Diagnosed Date Resolved Date Seizure-like activity 12/04/20222022 Occult GI bleeding 08/28/2019 1 Left inguinal hernia 05/16/2016 017 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 04/23/20152022 Hypokalemia 06/30/2009 04/21/2014 Family history of diabetes mellitus 10/11/2004 04/12/2018 Obesity, unspecified 10/10/2004 017 Other abnormal blood chemistry 10/10/2004 04/21/2014 Other convulsions 10/10/2004 04/21/2014 documented as of this encounter (statuses as of 01/02/2023) [facility] History of Past illness Narrative* Problem Noted Date Diagnosed Date Resolved Date Seizure-like activity 12/04/20222022 Occult GI bleeding 08/28/2019 1 Left inguinal hernia 05/16/2016 017 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 04/23/20152022 Hypokalemia 06/30/2009 04/21/2014 Family history of diabetes mellitus 10/11/2004 04/12/2018 Obesity, unspecified 10/10/2004 017 Other abnormal blood chemistry 10/10/2004 04/21/2014 Other convulsions 10/10/2004 04/21/2014 documented as of this encounter (statuses as of 01/09/2023) [facility] History of Past illness Narrative* Problem Noted Date Diagnosed Date Resolved Date Seizure-like activity 12/04/20222022 Occult GI bleeding 08/28/2019 1 Left inguinal hernia 05/16/2016 017 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 04/23/20152022 Hypokalemia 06/30/2009 04/21/2014 Family history of diabetes mellitus 10/11/2004 04/12/2018 Obesity, unspecified 10/10/2004 017 Other abnormal blood chemistry 10/10/2004 04/21/2014 Other convulsions 10/10/2004 04/21/2014 documented as of this encounter (statuses as of 01/16/2023) [facility] History of Past illness Narrative* Problem Noted Date Diagnosed Date Resolved Date Seizure-like activity 12/04/20222022 Occult GI bleeding 08/28/2019 1 Left inguinal hernia 05/16/2016 017 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 04/23/20152022 Hypokalemia 06/30/2009 04/21/2014 Family history of diabetes mellitus 10/11/2004 04/12/2018 Obesity, unspecified 10/10/2004 017 Other abnormal blood chemistry 10/10/2004 04/21/2014 Other convulsions 10/10/2004 04/21/2014 documented as of this encounter (statuses as of 01/29/2023) [facility] History of Past illness Narrative* Problem Noted Date Diagnosed Date Resolved Date Seizure-like activity 12/04/20222022 Occult GI bleeding 08/28/2019 1 Left inguinal hernia 05/16/2016 017 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 04/23/20152022 Hypokalemia 06/30/2009 04/21/2014 Family history of diabetes mellitus 10/11/2004 04/12/2018 Obesity, unspecified 10/10/2004 017 Other abnormal blood chemistry 10/10/2004 04/21/2014 Other convulsions 10/10/2004 04/21/2014 documented as of this encounter (statuses as of 02/02/2023) [facility] History of Past illness Narrative* Problem Noted Date Diagnosed Date Resolved Date Seizure-like activity 12/04/20222022 Occult GI bleeding 08/28/2019 1 Left inguinal hernia 05/16/2016 017 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 04/23/20152022 Hypokalemia 06/30/2009 04/21/2014 Family history of diabetes mellitus 10/11/2004 04/12/2018 Obesity, unspecified 10/10/2004 017 Other abnormal blood chemistry 10/10/2004 04/21/2014 Other convulsions 10/10/2004 04/21/2014 documented as of this encounter (statuses as of 02/05/2023) [facility]23 NoteHNO ID: [id number] Author: Luiza Solares APRN.TEAM MANAGER Service: ? Author Type: Nurse Practitioner Type: Progress Notes Filed: 11/24/2022 4:40 PM Note Text: Please route this encounter to the EMU Scheduling Pool ( P EMU ) or PMU Scheduling Pool ( P PMU ) through LOS AND Follow up PHASE 1.0 AND 1.5 ORDER SYNOPSIS Patient: Inna Ortiz ([id number]) Best contact number: [phone] Insurance: Payor: [employer] / Plan: [facility] / Product Type: HMO / ----- Scheduling Team: Please call for adult patients: Nicol Jensen ([phone]) Calderon Velasco ([phone]) Surinder Ramirez ([phone]) Griselda Santana([phone]) Rosi Cai([phone]) Please call for pediatric patients: Griselda Esther ([phone]) Nicol Camila ([phone]) Calderon Velasco ([phone]) Surinder Ramirez ([phone]),Rosi Cai([phone]) ----- 11/24/2022 Admission Type EMU Adult Number of Days requested 3 Location [facility] (Adults only) Admit Priority Routine PURPOSE 11/24/2022 Patient Being Considered for Epilepsy Surgery? No VEEG recommended to assess seizure burden, address new AND concerning syymptom-sign complex, and/or clarify syndromic epilepsy diagnosis? No 11/24/2022 Sphenoidal monitoring No Electrode placement Standard Appointments and Tests EPIL EEG LEAD PLACEMENT EPIL VEEG ADMIT TO EMU/PMU Consultations None Please route this encounter to the EMU Scheduling pool ( P EMU ) or PMU Scheduling pool ( P PMU ) through LOS AND Follow up Scheduling coordinators: For all VNS patients being scheduled for CORINA, please schedule VNS off/on office visits.[facility]09-29-2023 History of Present illness Narrative* Luiza Solares APRN.TEAM MANAGER - 11/24/2022 4:37 PM EDT Please route this encounter to the EMU Scheduling Pool ( P EMU ) or PMU Scheduling Pool ( P PMU ) through LOS & Follow up PHASE 1.0 AND 1.5 ORDER SYNOPSIS Patient: Inna Ortiz ([id number]) Best contact number: [phone] Insurance: Payor: [employer] / [facility] / Product Type: HMO / Scheduling Team: Please call for adult patients: Nicol Jensen ([phone]) Calderon Velasco ([phone]) Surinder Ramirez ([phone]) Griselda Santana([phone]) Rosi Cai([phone]) Please call for pediatric patients: Griselda Santana ([phone]) Nicol Jensen ([phone]) Calderon Velasco ([phone]) Surinder Ramirez ([phone]),Rosi Cai([phone]) 11/24/2022 Admission Type EMU Adult Number of Days requested 3 Location [facility] (Adults only) Admit Priority Routine PURPOSE 11/24/2022 Patient Being Considered for Epilepsy Surgery? No VEEG recommended to assess seizure burden, address new & concerning syymptom- sign complex, and/or clarify syndromic epilepsy diagnosis? No 11/24/2022 Sphenoidal monitoring No Electrode placement Standard Appointments and Tests EPIL EEG LEAD PLACEMENT EPIL VEEG ADMIT TO EMU/PMU Consultations None Please route this encounter to the EMU Scheduling pool ( P EMU ) or PMU Scheduling pool ( P PMU ) through LOS & Follow up Scheduling coordinators: For all VNS patients being scheduled for [facility], please schedule VNS off/on office visits. [facility] NoteHNO ID: [id number] Author: Mal Carpio Jr., MD Service: ? Author Type: Physician Type: Progress Notes Filed: 11/24/2022 6:38 PM Note Text: 11/19/2022 PROMIS Global Health Physical Health Summary Physical health: Fair Everyday physical activity, ability: A little Fatigue: Very severe Pain level: 6 General health: Fair Social activities/roles, ability: Fair Physical Health T-Score 29.6 (Poor) Physical Health Percentile 2 PROMIS Global Health Mental Health Summary Quality of life: Fair Mental health (mood,thinking): Fair Social satisfaction: Fair Emotional problems (anxious,depressed): Often Mental Health T-Score 33.8 (Fair) Mental Health Percentile 5 PROMIS PHYSICAL FUNCTION SCORE 07/29/2021 07/01/2021 Promis Physical Function Percentile 0 0 Percentiles provide an indication of how a patient's score ranks in relation to the [place] general population. > 31st percentile is within normal limits or better *< 31st percentile is at least ? SD worse than population, which may be clinically relevant < 16th percentile is at least 1 SD worse than population and warrants attention 08/31/2022 Sleep Apnea Probability Snores loudly: No Tired, fatigued or sleepy in daytime: Yes Stops breathing or choking/gasping during sleep: No High blood pressure: No Sleep Apnea Probability Score: (Sleep study not recommended) ESTABLISHED PATIENT VISIT CHIEF COMPLAINT: Follow Up HISTORY OF PRESENT ILLNESS: Inna Ortiz is a 67 year old male, BMI 17.56 kg/m2 with a PMH significant for and per last office visit note of 09/04/22: 1. Recurrent syncope - ICD9: 780.2, ICD10: R55 (primary diagnosis) 2. Vasovagal syncope - ICD9: 780.2, ICD10: R55 3. History of seizure disorder - ICD9: V12.49, ICD10: Z86.69 4. History of traumatic brain injury - ICD9: V15.52, ICD10: Z87.820 Patient with recurrent episodes of loc, all of which reportedly have occurred while on commode. Etiology uncertain but given association with activity, and subjective struggles during BMs, would suspect possible vasovagal events. However, also in ddx would be cardiac arrhythmia or confirmed orthostatic hypotension for which pt was started on midodrine today by cardiology. Cardiology following for such causes, but also need to include possible seizure disorder given history of known TBI and strokes with cortical injuries and prior seizures. This includes possible behaviors of nodding off during the day or zoning out as possible seizures. To further evaluate will get EEG (they request [facility]). I do not believe patient will tolerate MRI brain, but multiple CT brains reviewed (reports as above). If not responding to cardiac treatment of symptoms consider empiric treatment with anti seizure med or admission to EMU. 5. Daytime sleepiness - ICD9: 780.54, ICD10: R40.0 Hypersomnia - ICD9: 780.54, ICD10: G47.10 6. Family history of sleep apnea - ICD9: V19.8, ICD10: Z82.0 Nodding off throughout the day, yet not taking naps. Patient's family adamant that he has narcolepsy, and while might be in ddx, need to consider other possible causes including SHANIKA given family history and crowded airway, seizures as above, lack of sleep during the night (no one is witnessing if patient actually asleep at night). Pt they feel will not comply with actigraphy. In addition to EEG, will proceed with PSG and MSLT to evaluate for underlying sleep disorder. Note that I have indicated that MSLT should be cx'd if pt does not meet criteria during PSG. They are requesting studies at [facility]. Again, without subjective history provided by patient uncertain even whether pt is sleepy and are going by history provided by family. During office visit they report he is nodding off but nothing of such witnessed. 7. Tremor - ICD9: 781.0, ICD10: R25.1 8. Gait instability - ICD9: 781.2, ICD10: R26.81 9. History of stroke - ICD9: V12.54, ICD10: Z86.73 Tremor not noted on exam or during interview. However, other complaints of slowness, gait instability as well as tremor may be due to known history of stroke and TBI with symptoms secondary to these issues progressing with age and natural atrophy of the brain superimposed on known encephalomalacia. No clear indication of Parkinsonism. Unsteady gait at times. Again, I have no baseline neuro exams to clarify whether patient has significantly progressed over time. Serial CTs are not showing acute changes per report. Again, pt unlikely to tolerate MRI brain EEG performed at [facility] and per report unremarkable waking EEG . Sleep study performed at [facility] ([facility]) and during which pt only slept 142 minutes as waking throughout night due to nocturia. MSLT not completed as result. AHI was 0 and min O2 sat was 93% and thus no indication for a sleep related breathing disorder. Note cardiology following for orthostatic hypotension and appears to have decreased BP meds and started on midodrine and compression stockin (more content not included)...[facility]09-29-2023 History of Present illness Narrative* Mal Carpio Jr., MD - 11/24/2022 12:54 PM EDT 11/19/2022 PROMIS Global Health Physical Health Summary Physical health: Fair Everyday physical activity, ability: A little Fatigue: Very severe Pain level: 6 General health: Fair Social activities/roles, ability: Fair Physical Health T-Score 29.6 (Poor) Physical Health Percentile 2 PROMIS Global Health Mental Health Summary Quality of life: Fair Mental health (mood,thinking): Fair Social satisfaction: Fair Emotional problems (anxious,depressed): Often Mental Health T-Score 33.8 (Fair) Mental Health Percentile 5 PROMIS PHYSICAL FUNCTION SCORE 07/29/2021 07/01/2021 Promis Physical Function Percentile 0 0 Percentiles provide an indication of how a patient's score ranks in relation to the [place] general population. > 31st percentile is within normal limits or better *< 31st percentile is at least SD worse than population, which may be clinically relevant < 16th percentile is at least 1 SD worse than population and warrants attention 08/31/2022 Sleep Apnea Probability Snores loudly: No Tired, fatigued or sleepy in daytime: Yes Stops breathing or choking/gasping during sleep: No High blood pressure: No Sleep Apnea Probability Score: (Sleep study not recommended) ESTABLISHED PATIENT VISIT CHIEF COMPLAINT: Follow Up HISTORY OF PRESENT ILLNESS: Inna Ortiz is a 67 year old male, BMI 17.56 kg/m2 with a PMH significant for and per last office visit note of 09/04/22: 1. Recurrent syncope - ICD9: 780.2, ICD10: R55 (primary diagnosis) 2. Vasovagal syncope - ICD9: 780.2, ICD10: R55 3. History of seizure disorder - ICD9: V12.49, ICD10: Z86.69 4. History of traumatic brain injury - ICD9: V15.52, ICD10: Z87.820 Patient with recurrent episodes of loc, all of which reportedly have occurred while on commode. Etiology uncertain but given association with activity, and subjective struggles during BMs, would suspect possible vasovagal events. However, also in ddx would be cardiac arrhythmia or confirmed orthostatic hypotension for which pt was started on midodrine today by cardiology. Cardiology following forsuch causes, but also need to include possible seizure disorder given history of known TBI and strokes with cortical injuries and prior seizures. This includes possible behaviors of nodding off during the day or zoning out as possible seizures. To further evaluate will get EEG (they request [facility]). Noah not believe patient will tolerate MRI brain, but multiple CT brains reviewed (reports as above).If not responding to cardiac treatment of symptoms consider empiric treatment with anti seizure medor admission to EMU. 5. Daytime sleepiness - ICD9: 780.54, ICD10: R40.0 Hypersomnia - ICD9: 780.54, ICD10: G47.10 6. Family history of sleep apnea - ICD9: V19.8, ICD10: Z82.0 Nodding off throughout the day, yet not taking naps. Patient's family adamant that he has narcolepsy, and while might be in ddx, need to consider other possible causes including SHANIKA given family history and crowded airway, seizures as above, lack of sleep during the night (no one is witnessing if patient actually asleep at night). Pt they feel will not comply with actigraphy. In addition to EEG, will proceed with PSG and MSLT to evaluate for underlying sleep disorder. Note that I have indicatedthat MSLT should be cx'd if pt does not meet criteria during PSG. They are requesting studies at [facility]. Again, without subjective history provided by patient uncertain even whether pt is sleepy and aregoing by history provided by family. During office visit they report he is nodding off but nothing of such witnessed. 7. Tremor - ICD9: 781.0, ICD10: R25.1 8. Gait instability - ICD9: 781.2, ICD10: R26.81 9. History of stroke - ICD9: V12.54, ICD10: Z86.73 Tremor not noted on exam or during interview. However, other complaints of slowness, gait instability as well as tremor may be due to known history of stroke and TBI with symptoms secondary to these issues progressing with age and natural atrophy of the brain superimposed on known encephalomalacia.No clear indication of Parkinsonism. Unsteady gait at times. Again, I have no baseline neuro exams to clarify whether patient has significantly progressed over time. Serial CTs are not showing acute changes per report. Again, pt unlikely to tolerate MRI brain EEG performed at [facility] and per report unremarkable waking EEG . Sleep study performed at [facility] ([facility]) and during which pt only slept 142 minutes as waking throughout night due to nocturia. MSLT not completed as result. AHI was 0 and min O2 sat was 93% and thus no indication for a sleep related breathing disorder. Note cardiology following for orthostatic hypotension and appears to have decreased BP meds and started on midodrine and compression stockings (as above). Pt family again upset that patient is waking up multiple times per night. They report that this AM, patient had balck out - took while to come out of it. They state episode pt was unresponsive for 5 minutes. They then show me a video in which he is sitting on commode with eyes blinking but no definite evidence of loc. They then called witness who states he was out for 12seconds only. But then indicate patient was in and out multiple times but all lasting <15 seconds. Family states pt is sleeping the entire night but there is no one actually witnessing his sleep. When I bring up EMU evaluation for concerns, they report that episodes are only happening when patient is straining for BM. Note he had no episodes in August and then an episode in 09/29/2022 in which he fell forwards and the flung himself backwards. He is no longer on Midodrine as patient reportedly started scratching head afterwards which in turnresulted in the patient walking into ocampo. When asked if pt is taking any intentional naps during the day, they states he cannot do that. But then state he will be in his chair where he sits and watches tv during the day and will fall asleep.Sleep history is poor and difficult to determine patient's actual sleep times. Sends most of his day watching tv or shuffling cards. They make him walk to the kitchen every 45 minutes to drink water to keep him hydrated. They report pt is having changes in personality as well. REVIEW OF SYSTEMS N/A. LAB/IMAGING: Those performed since patient's last visit have been reviewed. WBC (k/uL) Date Value 10/20/2022 7.36 RBC (m/uL) Date Value 10/20/2022 5.43 Hemoglobin (g/dL) Date Value 10/20/2022 15.1 Hematocrit (%) Date Value 10/20/2022 48.6 MCV (fL) Date Value 10/20/2022 89.5 MCH (pg) Date Value 10/20/2022 27.8 MCHC (g/dL) Date Value 10/20/2022 31.1 RDW-CV (%) Date Value 10/20/2022 13.7 Platelet Count (k/uL) Date Value 10/20/2022 186 MPV (fL) Date Value 10/20/2022 10.9 Glucose (mg/dL) Date Value 10/20/2022 95 BUN (mg/dL) Date Value 10/20/2022 18 Creatinine (mg/dL) Date Value 10/20/2022 0.86 Sodium (mmol/L) Date Value 10/20/2022 139 Potassium (mmol/L) Date Value 10/20/2022 4.5 Chloride (mmol/L) Date Value 10/20/2022 104 CO2 (mmol/L) Date Value 10/20/2022 24 Protein, Total (g/dL) Date Value 10/20/2022 7.0 Albumin (g/dL) Date Value 10/20/2022 4.4 Calcium, Total (mg/dL) Date Value 10/20/2022 9.7 Alkaline Phosphatase (U/L) Date Value 10/20/2022 76 Bilirubin, Total (mg/dL) Date Value 10/20/2022 0.4 AST (U/L) Date Value 10/20/2022 25 ALT (U/L) Date Value 10/20/2022 18 Hep C Antibody IA (no units) Date Value 05/02/2014 Negative MEDICATIONS: Miscellaneous Medical Supply (BLOOD PRESSURE CUFF) 1 Each as needed. PEDIATRIC BP CUFF SIZE 10 blood sugar diagnostic (BLOOD GLUCOSE TEST) test strip Test blood sugar(s) 2 times daily. Dx: Type 2 DM - Uncontrolled E11.65 Insulin: No famotidine (PEPCID) 20 mg tablet Take 1 tablet by mouth once daily. (Per GI) oxybutynin ER (DITROPAN XL) 10 mg 24 hr tablet Take 1 tablet by mouth once daily. docusate sodium (COLACE) 100 mg capsule Take 200 mg by mouth daily with breakfast. simvastatin (ZOCOR) 20 mg tablet Take 1 tablet by mouth daily at bedtime. cyanocobalamin (VITAMIN B-12) 1,000 mcg tab Take 1 tablet by mouth once daily. nitroglycerin (NITROLINGUAL) 400 mcg/spray spray Dissolve 1 [place] under the tongue every 5 minutes as needed. fluticasone (FLONASE) 50 mcg/actuation nasal spray Use 2 Sprays in each nostril once daily. Rinse mouth after use. Lactobacillus rhamnosus GG (CULTURELLE ORAL) Take 1 capsule by mouth once daily. cholecalciferol, vitamin D3, (VITAMIN D3 ORAL) Take by mouth. glucosamine/chondr victoria A sod (OSTEO BI-FLEX ORAL) Take by mouth once daily. Lancets lancets Test blood sugar(s) two times daily. Dx: E11.9. Insulin: No aspirin, enteric coated (ECOTRIN LOW STRENGTH) 81 mg EC tablet Take 1 tablet by mouth once daily. plecanatide (TRULANCE) 3 mg tablet Take 3 mg by mouth once daily. midodrine (PROAMATINE) 2.5 mg tablet Take 1 tablet by mouth twice daily. 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 Unspecified essential hypertension 10/10/2004 FAMILY HISTORY Problem Relation Age of Onset Coronary Artery Disease Father Heart Father MS AT AGE 63 COPD Sister Asthma Sister No Known Problems Maternal Grandmother No Known Problems Maternal Grandfather No Known Problems Paternal Grandmother No Known Problems Paternal Grandfather Colon Cancer Other Cancer Other LUNG Diabetes Other Emphysema Other SOCIAL HISTORY Social History Tobacco Use Smoking status: Never Smokeless tobacco: Never Vaping Use Vaping Use: Never used Substance Use Topics Alcohol use: No Drug use: No PHYSICAL EXAMINATION BP 116/73 Pulse 77 Resp 16 Wt 53.9 kg (118 lb 14.4 oz) SpO2 95% BMI 17.56 kg/m General: Awake, alert, near non-verbal. Follows some verbal commands. CN: EOMI and without nystagmus, VFF to confrontation, facial sensation and strength are normal and symmetric, hearing is intact to finger rub bilaterally, palate and tongue movements are intact and symmetric. SCM and trapezius strength symmetric. Motor: Strength (5/5) bilaterally (throughout extremities x4). Sensation: Light touch appears intact. No evidence of neglect. Gait: Stable in line but when turning has some balance instability Assessment and Plan: ASSESSMENT/PLAN: 1. Recurrent syncope - ICD9: 780.2, ICD10: R55 (primary diagnosis) 2. History of seizure disorder - ICD9: V12.49, ICD10: Z86.69 3. History of traumatic brain injury - ICD9: V15.52, ICD10: Z87.820 4. Daytime sleepiness - ICD9: 780.54, ICD10: R40.0 Patient with episodes as above, for which history is limited. Unclear if truly a loss of consciousness vs altered mental status vs patient sleeping. Explained to pt that there is no evidence of a sleep related breathing disorder, nor did 20 min EEG show epileptiform abnormalities. They are still concerned for Narcolepsy but explained that per the sleep study performed at [facility] it appears pt is not sleeping at night. Family disagrees but no one actually witnessing patient's sleep and they are waking him multiple times to use the restroom. Cardiology continues to follow but pt now off orthostatictreatment due to reported side effect of making him scratch head which in turn resulted in him walking into wall or door jam. Given limited history, at this time, uncertain diagnosis. Possible behavioral issues including unresponsiveness are due to age in setting of known chronic impairments associated with TBI as child as well as stroke. However, due to this history also still need to consider possible seizure disorder. Finally cardiac event still remains in ddx (note this AM event did not occur with positional change per family and thus less likely orthostatic hypotension). Explained that perhaps best way to clarify cause would be admit to EMU where pt will have prolongedcontinuous EEG monitoring with ECG monitoring -- with the hope of capturing and event while recording is taking place. As for sleep disorder, I suspect patient has an abnormal circadian pattern and is likely up most of the night and thus sleeping during the day -- while EMU admit would not be for purpose of monitoring for a sleep disorder, it would still allow a better idea of patient's circadianpattern based on sleep wake pattern during hospital stay. Family agrees with plan. I will reach out to Dr. Churchill of epilepsy to help with admit to [facility] EMU. Mal Carpio MD I spent a total of 33 minutes on the date of the service which included preparing to see the patient, [id number] patient care, completing clinical documentation, obtaining and/or reviewing separately obtained history, performing a medically appropriate examination, counseling and educating the pat ient/family/caregiver, ordering medications, tests, or procedures, communicating with other HCPs (not separately reported), and communicating results to the patient/family/caregiver. [facility]09[facility]23 Miscellaneous Notes* Telephone Encounter - Tayla Goel APRN.CNS - 11/16/2022 4:48 PM EDT Noted, ok. * Telephone Encounter - Lilli Gramajo RN - 11/16/2022 4:13 PM EDT Adry @ [facility] calling to say she is faxing forms to be completed for patient's request for diabetic shoes. [facility]) by Dr. Yepez on 10/19. The fax cover will specify what needs completed and faxed back. Lilli Gramajo RN documented in this encounterPike [facility]08-25-[facility]23 NoteHNO ID: [id number] Author: Eliza Zamora MD Service: ? Author Type: Physician Type: Progress Notes Filed: 11/26/2022 4:12 PM Note Text: This note was created using Socialbombriter. Subjective Inna Ortiz is a 67 year old male. Patient presents with: F/U 6 months SUBJECTIVE: Inna Ortiz is a 67 year old year old gentleman here today for 6 month follow up appointment for review of medical conditions. Eating more but weight not much higher. No diarrhea. Sister brought in diary of vitals and meals. Most BPs 90s over 50s Sugars 90s to 110s in AM, 90 to 120s with a few 130 to 140. [id number]. Staying hydrated. Sips water through the day and milk too. Sunday is pizza and siva night. Some days eats a lot more Some days just has soup since does not feel like eating as much. Getting protein drink every morning plus pedialyte. Eats eggs and vegetables and friuts. Gets variety in his diet. Complains of neck pain but falls asleep in chair and falls asleep leaning on hand with head tilted. Noted that still taking Vitamin D but last level was high. 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 Miscellaneous Medical Supply (BLOOD PRESSURE CUFF) 1 Each as needed. PEDIATRIC BP CUFF SIZE 10 blood sugar diagnostic (BLOOD GLUCOSE TEST) test strip Test blood sugar(s) 2 times daily. Dx: Type 2 DM - Uncontrolled E11.65 Insulin: No famotidine (PEPCID) 20 mg tablet Take 1 tablet by mouth once daily. (Per GI) oxybutynin ER (DITROPAN XL) 10 mg 24 hr tablet Take 1 tablet by mouth once daily. docusate sodium (COLACE) 100 mg capsule Take 200 mg by mouth daily with breakfast. simvastatin (ZOCOR) 20 mg tablet Take 1 tablet by mouth daily at bedtime. cyanocobalamin (VITAMIN B-12) 1,000 mcg tab Take 1 tablet by mouth once daily. nitroglycerin (NITROLINGUAL) 400 mcg/spray spray Dissolve 1 [place] under the tongue every 5 minutes as needed. fluticasone (FLONASE) 50 mcg/actuation nasal spray Use 2 Sprays in each nostril once daily. Rinse mouth after use. Lactobacillus rhamnosus GG (CULTURELLE ORAL) Take 1 capsule by mouth once daily. cholecalciferol, vitamin D3, (VITAMIN D3 ORAL) Take by mouth. glucosamine/chondr victoria A sod (OSTEO BI-FLEX ORAL) Take by mouth once daily. Lancets lancets Test blood sugar(s) two times daily. Dx: E11.9. Insulin: No aspirin, enteric coated (ECOTRIN LOW STRENGTH) 81 mg EC tablet Take 1 tablet by mouth once daily. midodrine (PROAMATINE) 2.5 mg tablet Take 1 tablet by mouth twice daily. No current facility-administered medications for this visit. Review of Systems Objective BP 120/62 Pulse 77 Temp 36.7 ?C (98.1 ?F) Resp 18 Wt 53.8 kg (118 lb 9.6 oz) SpO2 98% BMI 17.51 kg/m? Physical Exam Vitals reviewed. Constitutional: Appearance: He is underweight. He is not ill-appearing. Eyes: Conjunctiva/sclera: Conjunctivae normal. Cardiovascular: Rate and Rhythm: Normal rate and regular rhythm. Heart sounds: Normal heart sounds. Pulmonary: Effort: Pulmonary effort is normal. Breath sounds: Normal breath sounds. Skin: General: Skin is warm and dry. Neurological: General: No focal deficit present. Mental Status: He is alert and oriented to person, place, and time. Psychiatric: Mood and Affect: Affect is blunt. Behavior: Behavior is cooperative. Cognition and Memory: Cognition is impaired. Comments: Nonverbal but appears to listen when sister talks to him Hemoglobin A1C (%) Date Value 10/20/2022 5.3 08/09/2022 5.5 03/01/2022 5.7 11/23/2021 5.7 05/20/2021 6.0 11/18/2020 6.1 05/15/2020 6.2 08/25/2019 6.0 11/02/2018 6.1 05/04/2018 6.1 Assessment and Plan Encounter Diagnosis ICD-10-CM 1. Type 2 diabetes mellitus with polyneuropathy (HCC) E11.42 COMP METABOLIC PANEL HGB A1C 2. Underweight R63.6 3. Primary hypertension I10 COMP METABOLIC PANEL CBC 4. Daytime sleepiness R40.0 5. Other hyperlipidemia E78.49 6. Vitamin D deficiency E55.9 VITAMIN D 25 HYDROXY 7. Encounter for long-term current use of medication Z79.899 COMP METABOLIC PANEL HGB A1C CBC VITAMIN D 25 HYDROXY MAGNESIUM BLD Above issues addressed with patient. Patient involved in shared decision making for management of medical issues. History and medications reviewe (more content not included)...[facility]08-25-2023 Instructions* Patient Instructions* Eliza Zamora MD - 10/20/2022 4:37 PM EDT Stop Vitamin D. Will decide when to resume after labs done. [facility] History of Present illness Narrative* Eliza Zamora MD - 10/20/2022 4:16 PM EDT This note was created using Tivra. Subjective Inna Ortiz is a 67 year old male. Patient presents with: F/U 6 months SUBJECTIVE: Inna Ortiz is a 67 year old year old gentleman here today for 6 month follow up appointment for review of medical conditions. Eating more but weight not much higher. No diarrhea. Sister brought in diary of vitals and meals. Most BPs 90s over 50s Sugars 90s to 110s in AM, 90 to 120s with a few 130 to 140. [id number]. Staying hydrated. Sips water through the day and milk too. Sunday is pizza and siva night. Some days eats a lot more Some days just has soup since does not feel like eating as much. Getting protein drink every morning plus pedialyte. Eats eggs and vegetables and friuts. Gets variety in his diet. Complains of neck pain but falls asleep in chair and falls asleep leaning on hand with head tilted. Noted that still taking Vitamin D but last level was high. 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 Miscellaneous Medical Supply (BLOOD PRESSURE CUFF) 1 Each as needed. PEDIATRIC BP CUFF SIZE 10 blood sugar diagnostic (BLOOD GLUCOSE TEST) test strip Test blood sugar(s) 2 times daily. Dx: Type 2 DM - Uncontrolled E11.65 Insulin: No famotidine (PEPCID) 20 mg tablet Take 1 tablet by mouth once daily. (Per GI) oxybutynin ER (DITROPAN XL) 10 mg 24 hr tablet Take 1 tablet by mouth once daily. docusate sodium (COLACE) 100 mg capsule Take 200 mg by mouth daily with breakfast. simvastatin (ZOCOR) 20 mg tablet Take 1 tablet by mouth daily at bedtime. cyanocobalamin (VITAMIN B-12) 1,000 mcg tab Take 1 tablet by mouth once daily. nitroglycerin (NITROLINGUAL) 400 mcg/spray spray Dissolve 1 [place] under the tongue every 5 minutes as needed. fluticasone (FLONASE) 50 mcg/actuation nasal spray Use 2 Sprays in each nostril once daily. Rinse mouth after use. Lactobacillus rhamnosus GG (CULTURELLE ORAL) Take 1 capsule by mouth once daily. cholecalciferol, vitamin D3, (VITAMIN D3 ORAL) Take by mouth. glucosamine/chondr victoria A sod (OSTEO BI-FLEX ORAL) Take by mouth once daily. Lancets lancets Test blood sugar(s) two times daily. Dx: E11.9. Insulin: No aspirin, enteric coated (ECOTRIN LOW STRENGTH) 81 mg EC tablet Take 1 tablet by mouth once daily. midodrine (PROAMATINE) 2.5 mg tablet Take 1 tablet by mouth twice daily. No current facility-administered medications for this visit. Review of Systems Objective BP 120/62 Pulse 77 Temp 36.7 C (98.1 F) Resp 18 Wt 53.8 kg (118 lb 9.6 oz) SpO2 98% BMI17.51 kg/m Physical Exam Vitals reviewed. Constitutional: Appearance: He is underweight. He is not ill-appearing. Eyes: Conjunctiva/sclera: Conjunctivae normal. Cardiovascular: Rate and Rhythm: Normal rate and regular rhythm. Heart sounds: Normal heart sounds. Pulmonary: Effort: Pulmonary effort is normal. Breath sounds: Normal breath sounds. Skin: General: Skin is warm and dry. Neurological: General: No focal deficit present. Mental Status: He is alert and oriented to person, place, and time. Psychiatric: Mood and Affect: Affect is blunt. Behavior: Behavior is cooperative. Cognition and Memory: Cognition is impaired. Comments: Nonverbal but appears to listen when sister talks to him Hemoglobin A1C (%) Date Value 10/20/2022 5.3 08/09/2022 5.5 03/01/2022 5.7 11/23/2021 5.7 05/20/2021 6.0 11/18/2020 6.1 05/15/2020 6.2 08/25/2019 6.0 11/02/2018 6.1 05/04/2018 6.1 Assessment and Plan Encounter Diagnosis ICD-10-CM 1. Type 2 diabetes mellitus with polyneuropathy (HCC) E11.42 COMP METABOLIC PANEL HGB A1C 2. Underweight R63.6 3. Primary hypertension I10 COMP METABOLIC PANEL CBC 4. Daytime sleepiness R40.0 5. Other hyperlipidemia E78.49 6. Vitamin D deficiency E55.9 VITAMIN D 25 HYDROXY 7. Encounter for long-term current use of medication Z79.899 COMP METABOLIC PANEL HGB A1C CBC VITAMIN D 25 HYDROXY MAGNESIUM BLD Above issues addressed with patient. Patient involved in shared decision making for management of medical issues. History and medications reviewed. Epic updated as needed Refills and/or prescriptions taken care of and meds adjusted as indicated after reviewed history, exam and labs. Health Maintenance reviewed. Updated record and/or ordered tests as recorded. Encouraged on efforts at healthy diet and regular exercise and adequate sleep. Weight stabilized to slowly increasing. Discussed sister's concerns. Encouraged to give him more food since she noted he seems always hungry. So weight loss not from lack of appetite. No problems with nausea, vomiting or diarrhea. Does not need to limit carbs so much just because of diabetes diagnosis. Fingerstick glucose shows tight control of sugars without meds. No restriction on foods at this time since not eating too much of anything and weight jsut slowly going up. Follow up on labs done on way out. Further evaluation and treatment as indicated. Eliza Zamora MD documented [facility] encounterP[facility]08[facility] Miscellaneous Notes* Telephone Encounter - Indy Vargas RN - 10/10/2022 2:50 PM EDT [facility] and [facility] [phone] and notified that we have received their fax and that it has been forwarded on to Dr. Wheeler. Request for documentation from [facility] faxed to [phone]. Indy Vargas RN * Telephone Encounter - Indy Vargas RN - 10/09/2022 4:29 PM EDT Fide Davison, RN 1 hour ago (2:54 PM) [employer] called in requesting confirmation of receipt of declaration of medical necessity for thispt's ordered compression garments. This RN did not see receipt of form, but confirmed the correct fax number. Forms will be refaxed to our office. When the form is complete, they will also need recent office visit notes documenting why the garments are medically necessary, as this requires a prior authorization. Thank you * Telephone Encounter - Indy Vargas RN - 10/03/2022 12:20 PM EDT See other encounter regarding BP cuff. Indy Vargas RN * Telephone Encounter - Juliette Serrano - 10/03/2022 11:52 AM EDT Pharmacy called in stating he needs a Blood pressure monitor e-scripted instead of a cuff. Please call Norma @ [phone] [facility]. * Telephone Encounter - Diana Lynch RN - 10/02/2022 4:31 PM EDT Form faxed to [facility] for Dr. Wheeler to sign and fax to [facility]. Diana Lynch RN * Telephone Encounter - Kristen Ramirez LPN - 10/02/2022 10:58 AM EDT Bina with [facility] called to ask if medicaid form for compression stockings was received?They will need office visit notes explaining why compression garment is needed. Fax number for [facility] is [phone] or [phone]. Kristen Ramirez LPN documented in this encounterP[facility]08-14-2023 Miscellaneous Notes* Telephone Encounter - Indy Vargas RN - 10/09/2022 4:29 PM EDT See other open encounter regarding compression stockings. Indy Vargas RN * Telephone Encounter - Fide Davison RN - 10/09/2022 2:48 PM EDT [facility] [facility] called in requesting confirmation of receipt of declaration of medical necessity for thispt's ordered compression garments. This RN did not see receipt of form, but confirmed the correct fax number. Forms will be refaxed to our office. When the form is complete, they will also need recent office visit notes documenting why the garments are medically necessary, as this requires a prior authorization. Thank you documented in this encounterP[facility]07-20-2023 Miscellaneous Notes* Telephone Encounter - Nataliia Chakraborty - 09/14/2022 10:14 AM EDT Received voice messages from [facility]. Valorie is with the precert department at [facility]. Requesting an order and referral for EEG, MSLT and PSG. Emailed [facility] precert department to confirm they have the added referrals. Spoke with [facility] sleep department. The requested EEG, MSLT and PSG orders be faxed to [facility] sleep lab. . The [facility] Sleep department discuss the patient requires an order for the patient to take his daily medication during testing. The RX order was faxed by the [facility] sleep lab on September 12. Will check with the provider's clinical staff. The order needs signed and faxed back to fax# [phone]. documented in this encounterP[facility]07-17-2023 Miscellaneous Notes* Telephone Encounter - Diana Lynch RN - 09/11/2022 10:47 AM EDT Spoke to Angie. States she stopped the medication and pt symptoms are resolved. Diana Lynch RN * Telephone Encounter - Indy Vargas RN - 09/11/2022 8:26 AM EDT Images from the original note were not included. Dl Wheeler MD 4 days ago Stop the medication Liam * Telephone Encounter - Fide Davison RN - 09/07/2022 9:44 AM EDT Angie (pt's sister) called in with concerns after pt started midodrine Sunday evening. Angie states they were aware of the possible side effects of the medication, but the itching has been severe for the pt to the point that he is relentlessly scratching his head and nearly walking into door frames d/t preoccupation with itching. Angie states the pt had an appointment with neurology and is expected to undergo some testing including a sleep study where this itching will interfere. This appointment is not yet scheduled. Angie is asking if they can discontinue the medication, reduce the dose, or change to something else. Please review and advise. Thank you. Asiya Davison, BRIAN documented in this encounterPike [facility]07-12-2023 Miscellaneous Notes* Telephone Encounter - Lindsey Bonilla LPN - 09/06/2022 4:59 PM EDT PSG order resent to [facility]. Lindsey Bonilla LPN * Telephone Encounter - Lindsey Bonilla LPN - 09/06/2022 2:35 PM EDT TC to Luis Enrique. Left VM with below information and gave verbal over the phone to use hypersomnia as theDX. Lindsey Bonilla LPN * Telephone Encounter - Ilda Edwards RN - 09/06/2022 9:28 AM EDT Luis Enrique Stinson at [facility] Coding Department calling regarding pt's ordered polysomnogram. She reports that thecurrent diagnosis indicated for the test , daytime sleepiness (R40.0) is not covered by pt's insurance. Reports that the diagnosis of hypersomnia G47.10 is covered. Asking if provider authorizes thiscode to be used for test? Please call Luis Enrique Stinson Back at [phone]. Thank you. documented in this encounterPike [facility]07-10-2023 NoteHNO ID: [id number] Author: Mal Carpio Jr., MD Service: ? Author Type: Physician Type: Progress Notes Filed: 09/06/2022 11:43 AM Note Text: NEW PATIENT (CONSULT) HISTORY AND PHYSICAL EXAM PRIMARY CARE PHYSICIAN: Eliza Zamora MD REASON FOR CONSULT: Syncope REFERRING PHYSICIAN: Eliza Zamora MD CHIEF COMPLAINT: Falling asleep, blacking out - per family. Consultation requested by Eliza Zamora MD for an opinion regarding chief complaint of Patient presents with: New Patient Evaluation and my final recommendations will be communicated back to the requesting physician by way of shared medical record or letter via [place] mail. HISTORY OF PRESENT ILLNESS: Inna Ortiz is a 67 year old male, BMI 17.48 kg/m2 with a PMH significant for LOC for which he has been evaluated by cardiology for orthostatic hypotension and started on Midodrine this AM. He has prior brain imaging as well over recent years that on review of reports from [facility] do not show acute intracranial processes but evidence of frontal lobe encephalomalacia and subcortical changes on L to suggest prior strokes and TBI with h/o SBS. Recent ECHO also showing EF of 39+/-5%. Family provided most of the history who believes patient has Narcolepsy. States from the time he wakes until the time he goes to bed he is exhausted and nodding off. Reportedly has fallen off toilet multiple times including blacking out 11 times for which they have been told it is a vasovagal response. They provide history of patient sitting on commode and blinks - they state eyes close and he is falling asleep, but there appears to be no loss of muscle tone. Going to bed about 730 to 8 PM. States he is waking up 3 times per night to use bathroom. Wakes to start day between 6-7AM. States that falling off commode started in 05/2022 but states that dozing off has been going on longer. Never had sleep study. Mother with [facility]. 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 No one witnesses patient's sleep. No one can state if he is snoring. When I ask about naps during the day, they state he does not take naps, but just drops head for a few minutes. They are also concerned that patient is losing weight. They states sometimes he is looking at the ceiling but nothing there. There has been no seizure evaluations since childhood but they tell me he was on seizure medications (stopped due to cessation of seizures). They add that sometimes when he eats his hands will shake. Other times when shuffles cards he will drop his cards -- state this has been going on for 2 years. Regarding blood sugars, they states he is usually good at home. Sometimes will be in 90s, and high of 130s. However, he is not on DM medications at home, and family appears to be holding all sugar containing foods. Patient following with cardiology - saw earlier today and note reviewed. Pts family reports that he does complain of CP at home. They state they did discuss with cardiology. Nodding off they reports happens continuously but not witnessed during interview. Actual black out has not happened in some time and only happens when the patient is on the commode. More combative at times. No other family history of neurologic disease. REVIEW OF SYSTEMS GENERAL:No weight loss, malaise or fevers. HEENT:Negative for frequent or significant headaches, No changes in hearing or vision, no nose bleeds or other nasal problems NECK:Negative for lumps, goiter, pain and significant neck swelling RESPIRATORY: Negative for cough, wheezing or shortness of breath. CARDIOVASCULAR: See HPI. GASTROINTESTINAL: Negative for abdominal discomfort, blood in stools or black stools or change in bowel habits GENITOURINARY: No history of dysuria, frequency or incontinence MUSCULOSKELETAL: Negative for joint pain or swelling, back pain or muscle pain. NEUROLOGIC:Negative for focal numbness or weakness, headaches and dizziness or syncope, vision changes, speech/language changes, changes in gait or falls -- besides those complaints as above in HPI. SKIN:Negative for lesions, rash, and itching. HEMATOLOGIC/LYMPHATIC/IMMUNOLOGIC:Negative for prolonged bleeding, bruising easily or swollen nodes. ENDOCRINE: See HPI. LAB/IMAGING: Reviewed and include: WBC (k/uL) Date Value 08/09/2022 6.11 RBC (m/uL) Date Value 08/09/2022 5.63 Hemoglobin (g/dL) Date Value 08/09/2022 15.7 Hematocrit (%) Date Value 08/09/2022 49.2 MCV (fL) Date Value 08/09/2022 87.4 MCH (pg) Date Value 08/09/2022 27.9 MCHC (g/dL) Date Value 08/09/2022 31.9 RDW-CV (%) Date Value 08/09/2022 13.9 Platelet Count (k/uL) Date Value 08/09/2022 246 MPV (fL) Date Value 08/09/2022 11.0 Glucose (mg/dL) Date Value 08/09/2022 105 (H) BUN (mg/dL) Date Value 08/09/2022 11 Creatinine (mg/dL) Date Value 08/09/2022 1.00 Sodium (mmol/L) Date Value 08/09/2022 (more content not included)...[facility]07-10-2023 NoteHNO ID: [id number] Author: Dl Wheeler MD Service: ? Author Type: Physician Type: Progress Notes Filed: 09/04/2022 1:01 PM Note Text: Dl Wheeler MD Interventional Cardiology [facility] [address], [place] [address] [phone] Chief Complaint Patient presents with: Established Patient Follow-Up HISTORY OF PRESENT ILLNESS: Mr. Ortiz is a 67 year old male seen my office today prior history of cardiomyopathy with moderate LV systolic dysfunction hypertensive heart disease recently has been having very low blood pressures with hypotension Coreg was discontinued No clinical signs or symptoms of congestive heart failure Blood pressure monitor shows blood pressure low as 60 mmHg Cardiac Risk Factors age (male over 45, female over 55), hypertension, family history of CAD PAST MEDICAL HISTORY Diagnosis Date CONVULSIONS, OTHER 10/10/2004 none since age 10 Dysmetabolic syndrome X 10/10/2004 LATE EFF,CV DIS,UNSPECIFIED 10/10/2004 Obesity, unspecified 10/10/2004 Other primary cardiomyopathies 04/20/2014 Prostate nodule 03/06/2022 Stroke (cerebrum) (HCC) Type II or unspecified type diabetes mellitus without mention of complication, not stated as uncontrolled 02/20/2014 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) 10/10/2004 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 Unspecified essential hypertension 10/10/2004 PAST SURGICAL HISTORY Procedure Laterality Date LAPAROSCOPY SURG RPR INITIAL INGUINAL HERNIA Left 07/20/2016 plus umbilica hernia repair FAMILY HISTORY Problem Relation Age of Onset Coronary Artery Disease Father Heart Father MS AT AGE 63 COPD Sister Asthma Sister No Known Problems Maternal Grandmother No Known Problems Maternal Grandfather No Known Problems Paternal Grandmother No Known Problems Paternal Grandfather Colon Cancer Other Cancer Other LUNG Diabetes Other Emphysema Other Social History Tobacco Use Smoking status: Never Smokeless tobacco: Never Vaping Use Vaping Use: Never used Substance Use Topics Alcohol use: No Drug use: No ALLERGIES Allergen Reactions Macrobid [Nitrofura* Rash Cefdinir Rash Medications: Current Outpatient Medications Medication Sig Dispense Refill blood sugar diagnostic (BLOOD GLUCOSE TEST) test strip Test blood sugar(s) 2 times daily. Dx: Type 2 DM - Uncontrolled E11.65 Insulin: No 200 Strip 3 famotidine (PEPCID) 20 mg tablet Take 1 tablet by mouth once daily. (Per GI) oxybutynin ER (DITROPAN XL) 10 mg 24 hr tablet Take 1 tablet by mouth once daily. 90 tablet 3 docusate sodium (COLACE) 100 mg capsule Take 200 mg by mouth daily with breakfast. simvastatin (ZOCOR) 20 mg tablet Take 1 tablet by mouth daily at bedtime. 90 tablet 3 cyanocobalamin (VITAMIN B-12) 1,000 mcg tab Take 1 tablet by mouth once daily. nitroglycerin (NITROLINGUAL) 400 mcg/spray spray Dissolve 1 [place] under the tongue every 5 minutes as needed. 12 g 1 fluticasone (FLONASE) 50 mcg/actuation nasal spray Use 2 Sprays in each nostril once daily. Rinse mouth after use. 1 Each 11 Lactobacillus rhamnosus GG (CULTURELLE ORAL) Take 1 capsule by mouth once daily. cholecalciferol, vitamin D3, (VITAMIN D3 ORAL) Take by mouth. glucosamine/chondr victoria A sod (OSTEO BI-FLEX ORAL) Take by mouth once daily. Lancets lancets Test blood sugar(s) two times daily. Dx: E11.9. Insulin: No 100 Each 11 aspirin, enteric coated (ECOTRIN LOW STRENGTH) 81 mg EC tablet Take 1 tablet by mouth once daily. 0 midodrine (PROAMATINE) 2.5 mg tablet Take 1 tablet by mouth twice daily. 60 tablet 0 No current facility-administered medications for this visit. Review of Systems Constitutional: Negative for chills, diaphoresis, fever, malaise/fatigue and weight loss. HENT: Negative for congestion, ear discharge, ear pain, hearing loss, nosebleeds, sinus pain, sore throat and tinnitus. Eyes: Negative for blurred vision, double vision, photophobia, pain, discharge and redness. Respiratory: Negative for cough, hemoptysis, sputum production, shortness of breath, wheezing and stridor. Cardiovascular: Negative for chest pain, palpitations, orthopnea, claudication, leg swelling and PND. Gastrointestinal: Negative for abdominal pain, blood in stool, constipation, diarrhea, heartburn, melena, nausea and vomiting. Genitourinary: Negative for dysuria, flank pain, frequency, hematuria and urgency. Musculoskeletal: Negative for back pain, falls, joint pain, myalgias and neck pain. Skin: Negative for itching and rash. Neurological: Negative for dizziness, tingling, tremors, sensory change, speech change, focal weakness, seizures, loss of consciousness, weakness and headaches. Endo/Heme/Allergies: Negative for environmental allergies and polydipsia. Does not bruise/bleed easily. Psychiatric/Behavioral: Negative for depression, hallucinations, memory loss (more content not included)...[facility]10[facility] History of Present illness Narrative* lD Wheeler MD - 09/04/2022 12:58 PM EDT Images from the original note were not included. Dl Wheeler [facility] [address], [place] [address] [phone] Chief Complaint Patient presents with: Established Patient Follow-Up HISTORY OF PRESENT ILLNESS: Mr. Ortiz is a 67 year old male seen my office today prior history of cardiomyopathy with moderate LV systolic dysfunction hypertensive heart disease recently has been having very low blood pressureswith hypotension Coreg was discontinued No clinical signs or symptoms of congestive heart failure Blood pressure monitor shows blood pressure low as 60 mmHg Cardiac Risk Factors age (male over 45, female over 55), hypertension, family history of CAD PAST MEDICAL HISTORY Diagnosis Date CONVULSIONS, OTHER 10/10/2004 none since age 10 Dysmetabolic syndrome X 10/10/2004 LATE EFF,CV DIS,UNSPECIFIED 10/10/2004 Obesity, unspecified 10/10/2004 Other primary cardiomyopathies 04/20/2014 Prostate nodule 03/06/2022 Stroke (cerebrum) (HCC) Type II or unspecified type diabetes mellitus without mention of complication, not stated as uncontrolled 02/20/2014 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) 10/10/2004 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 Unspecified essential hypertension 10/10/2004 PAST SURGICAL HISTORY Procedure Laterality Date LAPAROSCOPY SURG RPR INITIAL INGUINAL HERNIA Left 07/20/2016 plus umbilica hernia repair FAMILY HISTORY Problem Relation Age of Onset Coronary Artery Disease Father Heart Father MS AT AGE 63 COPD Sister Asthma Sister No Known Problems Maternal Grandmother No Known Problems Maternal Grandfather No Known Problems Paternal Grandmother No Known Problems Paternal Grandfather Colon Cancer Other Cancer Other LUNG Diabetes Other Emphysema Other Social History Tobacco Use Smoking status: Never Smokeless tobacco: Never Vaping Use Vaping Use: Never used Substance Use Topics Alcohol use: No Drug use: No ALLERGIES Allergen Reactions Macrobid [Nitrofura* Rash Cefdinir Rash Medications: Current Outpatient Medications Medication Sig Dispense Refill blood sugar diagnostic (BLOOD GLUCOSE TEST) test strip Test blood sugar(s) 2 times daily. Dx: Type 2 DM - Uncontrolled E11.65 Insulin: No 200 Strip 3 famotidine (PEPCID) 20 mg tablet Take 1 tablet by mouth once daily. (Per GI) oxybutynin ER (DITROPAN XL) 10 mg 24 hr tablet Take 1 tablet by mouth once daily. 90 tablet 3 docusate sodium (COLACE) 100 mg capsule Take 200 mg by mouth daily with breakfast. simvastatin (ZOCOR) 20 mg tablet Take 1 tablet by mouth daily at bedtime. 90 tablet 3 cyanocobalamin (VITAMIN B-12) 1,000 mcg tab Take 1 tablet by mouth once daily. nitroglycerin (NITROLINGUAL) 400 mcg/spray spray Dissolve 1 [place] under the tongue every 5 minutes as needed. 12 g 1 fluticasone (FLONASE) 50 mcg/actuation nasal spray Use 2 Sprays in each nostril once daily. Rinse mouth after use. 1 Each 11 Lactobacillus rhamnosus GG (CULTURELLE ORAL) Take 1 capsule by mouth once daily. cholecalciferol, vitamin D3, (VITAMIN D3 ORAL) Take by mouth. glucosamine/chondr victoria A sod (OSTEO BI-FLEX ORAL) Take by mouth once daily. Lancets lancets Test blood sugar(s) two times daily. Dx: E11.9. Insulin: No 100 Each 11 aspirin, enteric coated (ECOTRIN LOW STRENGTH) 81 mg EC tablet Take 1 tablet by mouth once daily. 0 midodrine (PROAMATINE) 2.5 mg tablet Take 1 tablet by mouth twice daily. 60 tablet 0 No current facility-administered medications for this visit. Review of Systems Constitutional: Negative for chills, diaphoresis, fever, malaise/fatigue and weight loss. HENT: Negative for congestion, ear discharge, ear pain, hearing loss, nosebleeds, sinus pain, sore throat and tinnitus. Eyes: Negative for blurred vision, double vision, photophobia, pain, discharge and redness. Respiratory: Negative for cough, hemoptysis, sputum production, shortness of breath, wheezing and stridor. Cardiovascular: Negative for chest pain, palpitations, orthopnea, claudication, leg swelling and PND. Gastrointestinal: Negative for abdominal pain, blood in stool, constipation, diarrhea, heartburn, melena, nausea and vomiting. Genitourinary: Negative for dysuria, flank pain, frequency, hematuria and urgency. Musculoskeletal: Negative for back pain, falls, joint pain, myalgias and neck pain. Skin: Negative for itching and rash. Neurological: Negative for dizziness, tingling, tremors, sensory change, speech change, focal weakness, seizures, loss of consciousness, weakness and headaches. Endo/Heme/Allergies: Negative for environmental allergies and polydipsia. Does not bruise/bleed easily. Psychiatric/Behavioral: Negative for depression, hallucinations, memory loss, substance abuse and suicidal ideas. The patient is not nervous/anxious and does not have insomnia. Physical Examination: Vitals:BP 110/60 Pulse 88 Wt 119 lb (54.0kg) SpO2 100% BP w/Orthostatic Vitals Date and Time Orthostatic BP Orthostatic Pulse BP Pulse BP Position BP Site BP Cuff Size 09/04/22 0832 -- -- 110/60 88 Sitting Right Arm Regular Adult Last 2 Encounter Wt Readings: Date: Wt: 09/04/2022 54 kg (119 lb) 08/09/2022 53.1 kg (117 lb) Physical Exam Constitutional: General: He is not in acute distress. Appearance: He is not diaphoretic. HENT: Head: Normocephalic and atraumatic. Right Ear: External ear normal. Left Ear: External ear normal. Nose: Nose normal. Mouth/Throat: Pharynx: Oropharynx is clear. Eyes: General: Right eye: No discharge. Left eye: No discharge. Conjunctiva/sclera: Conjunctivae normal. Pupils: Pupils are equal, round, and reactive to light. Cardiovascular: Rate and Rhythm: Normal rate and regular rhythm. Heart sounds: Normal heart sounds, S1 normal and S2 normal. No murmur heard. No friction rub. No gallop. No S3 or S4 sounds. Pulmonary: Effort: Pulmonary effort is normal. No respiratory distress. Breath sounds: Normal breath sounds. No wheezing or rales. Chest: Chest wall: No tenderness. Musculoskeletal: General: Normal range of motion. Cervical back: Normal range of motion and neck supple. Skin: General: Skin is warm and dry. Neurological: Mental Status: He is alert and oriented to person, place, and time. Psychiatric: Mood and Affect: Mood normal. Thought Content: Thought content normal. Pertinent Labs: CBC: Hemoglobin (g/dL) Date Value 08/09/2022 15.7 11/18/2020 15.7 Hematocrit (%) Date Value 08/09/2022 49.2 11/18/2020 51.0 WBC (k/uL) Date Value 08/09/2022 6.11 11/18/2020 7.56 Platelet Count (k/uL) Date Value 08/09/2022 246 11/18/2020 246 BMP: Glucose (mg/dL) Date Value 08/09/2022 105 11/18/2020 112 Potassium (mmol/L) Date Value 08/09/2022 4.4 11/18/2020 4.1 Sodium (mmol/L) Date Value 08/09/2022 141 11/18/2020 139 Chloride (mmol/L) Date Value 08/09/2022 104 11/18/2020 101 CO2 (mmol/L) Date Value 08/09/2022 26 11/18/2020 26 Creatinine (mg/dL) Date Value 08/09/2022 1.00 11/18/2020 0.99 BUN (mg/dL) Date Value 08/09/2022 11 11/18/2020 17 Anion Gap (mmol/L) Date Value 08/09/2022 11 11/18/2020 12 Calcium (mg/dL) Date Value 11/18/2020 9.8 Calcium, Total (mg/dL) Date Value 08/09/2022 10.2 INR: Lipid Profile: Total Cholesterol, Nonfasting Date Value Ref Range Status 08/09/2022 144 <200 mg/dL Final Comment: <200 mg/dL, Desirable 200-239 mg/dL, Borderline high >239 mg/dL, High HDL Cholesterol, Nonfasting Date Value Ref Range Status 08/09/2022 56 >39 mg/dL Final Comment: 40-59 mg/dL, Acceptable >59 mg/dL, High: Negative risk factor for coronary heart disease <40 mg/dL, Low: Positive risk factor for coronary heart disease LDL Cholesterol, Nonfasting Date Value Ref Range Status 08/09/2022 78 <100 mg/dL Final Comment: <100 mg/dL, Optimal 100-129 mg/dL, Near optimal/above optimal 130-159 mg/dL, Borderline high 160-189 mg/dL, High >189 mg/dL, Very high Secondary prevention optimal LDL Cholesterol levels are recommended to be < 70 mg/dL Triglycerides, Nonfasting Date Value Ref Range Status 08/09/2022 52 <150 mg/dL Final Comment: <150 mg/dL, Normal 150-199 mg/dL, Borderline high 200-499 mg/dL, High >499 mg/dL, Very high Hemoglobin A1C: No results found for: HGBA1C TSH: No results found for: TSHREFL Prior Cardiac Testing none Assessment and Plan: 67 years old gentleman with asymptomatic cardiomyopathy with moderate LV systolic dysfunction and hypotension ASSESSMENT/PLAN: 1. Orthostatic hypotension [I95.1] - ICD9: 458.0, ICD10: I95.1 (primary diagnosis) We will initiate small dose of midodrine 2.5 mg twice daily potentially intensify the dose based onthe blood pressures at home 2. Cardiomyopathy, nonischemic (HCC) - ICD9: 425.4, ICD10: I42.8 BANDAR inhibitor therapy cannot be used or beta-blockers because of hypotension Asymptomatic cardiomyopathy Keep holding the beta-blockers and vasodilators Dl Wheeler MD Follow up plannin months Electronically signed by Dl Wheeler MD on September 04, 2022, 12:58 PM The above note was partially created using a dictation recognition software. A reasonable attempt has been made to correct any errors. [facility] Miscellaneous Notes* Telephone Encounter - Shannan Kang LPN - 08/30/2022 1:07 PM EDT Patient's mother Chiquita phones requesting refills as follows: Requested Prescriptions Pending Prescriptions Disp Refills blood sugar diagnostic (BLOOD GLUCOSE TEST) test strip 200 Strip 3 Sig: Test blood sugar(s) 2 times daily. Dx: Type 2 DM - Uncontrolled E11.65 Insulin: No SALVADOR: 08/09/22 NOV: 10/20/22 Last Refill: 08/10/21 #200 3 refills Shannan Kang LPN documented [facility] NoteHNO ID: [id number] Author: Eliza Zamora MD Service: ? Author Type: Physician Type: Progress Notes Filed: 09/10/2022 11:26 PM Note Text: This note was created using Socialbombriter. Subjective Inna Ortiz is a 67 year old male. Patient presents with: Recheck: 3 month follow up SUBJECTIVE: Inna Ortiz is a 67 year old year old gentleman here today for 3 month follow up appointment for review of medical conditions. Has follow up appointments with cardiology and neurology soon. Still having issues with passing out or falling asleep while sitting on toilet. Falls asleep easily throughout the day. Sister worries about narcolepsy but not describing a typical drop attack. Passed out 8 times since May--has to be shaken awake and then cries. 06/19, 06/27, 07/13,07/18, 08/04, 08/05 and 08/07. One other date does not recall. BPs still running low mostly 60s to 90s. Since 6/4, staying 90 to 110s. Pushing water every 45 minutes. Some electrolyte dinks too. Continues to work with GI for constipation issues. To try [employer]. 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 simvastatin (ZOCOR) 20 mg tablet Take 1 tablet by mouth daily at bedtime. cyanocobalamin (VITAMIN B-12) 1,000 mcg tab Take 1 tablet by mouth once daily. blood sugar diagnostic (BLOOD GLUCOSE TEST) test strip Test blood sugar(s) 2 times daily. Dx: Type 2 DM - Uncontrolled E11.65 Insulin: No nitroglycerin (NITROLINGUAL) 400 mcg/spray spray Dissolve 1 [place] under the tongue every 5 minutes as needed. fluticasone (FLONASE) 50 mcg/actuation nasal spray Use 2 Sprays in each nostril once daily. Rinse mouth after use. Lactobacillus rhamnosus GG (CULTURELLE ORAL) Take 1 capsule by mouth once daily. cholecalciferol, vitamin D3, (VITAMIN D3 ORAL) Take by mouth. glucosamine/chondr [place] A sod (OSTEO BI-FLEX ORAL) Take by mouth once daily. Lancets lancets Test blood sugar(s) two times daily. Dx: E11.9. Insulin: No aspirin, enteric coated (ECOTRIN LOW STRENGTH) 81 mg EC tablet Take 1 tablet by mouth once daily. famotidine (PEPCID) 20 mg tablet Take 1 tablet by mouth once daily. (Per GI) docusate sodium (COLACE) 100 mg capsule Take 200 mg by mouth daily with breakfast. No current facility-administered medications for this visit. Review of Systems Objective BP 94/68 Pulse 69 Resp 16 Wt 53.1 kg (117 lb) SpO2 94% BMI 17.28 kg/m? 08/09/22 0911 08/09/22 1008 08/09/22 1012 BP: 94/68 100/60 112/60 BP Position: Sitting Standing Pulse: 69 Resp: 16 SpO2: 94% Weight: 53.1 kg (117 lb) Last 5 Encounter Wt Readings: Date: Wt: 08/09/2022 53.1 kg (117 lb) 06/28/2022 54.4 kg (120 lb) 05/01/2022 55.8 kg (123 lb) 04/17/2022 57.2 kg (126 lb) 04/03/2022 56.2 kg (124 lb) No waist measurement recorded Estimated body mass index is 17.28 kg/m? as calculated from the following: Height as of 03/10/22: 175.3 cm (5' 9 ). Weight as of this encounter: 53.1 kg (117 lb). Last 5 Encounter BP Readings: Date: BP: 08/09/2022 112/60 06/28/2022 118/62 05/01/2022 100/64 04/17/2022 110/70 04/03/2022 120/70 Physical Exam Vitals reviewed. Constitutional: Appearance: He is underweight. Eyes: Conjunctiva/sclera: Conjunctivae normal. Cardiovascular: Rate and Rhythm: Normal rate and regular rhythm. Heart sounds: Normal heart sounds. Pulmonary: Effort: Pulmonary effort is normal. Breath sounds: Normal breath sounds. Skin: General: Skin is warm and dry. Neurological: General: No focal deficit present. Mental Status: He is alert and oriented to person, place, and time. Psychiatric: Behavior: Behavior is cooperative. Cognition and Memory: Cognition is impaired. Comments: Responds nonverbally to questions Assessment and Plan Encounter Diagnosis ICD-10-CM 1. Type 2 diabetes mellitus with polyneuropathy (HCC) E11.42 COMP METABOLIC PANEL HGB A1C 2. Underweight R63.6 3. Primary hypertension I10 COMP METABOLIC PANEL CBC 4. Daytime sleepiness R40.0 5. Polyuria R35.89 OSMOLALITY URINE COMP METABOLIC PANEL 6. 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 Other hyperlipidemia E78.49 LIPID PANEL, NONFASTING 8. Vasovagal reaction R55 9. Chronic fatigue R53.82 VITAMIN D 25 HYDROXY 10. Encounter for lo (more content not included)...[facility] 08-09-2022 Instructions* Patient Instructions* Eliza Zamora MD - 08/09/2022 9:50 AM EDT Double portions of meals, or at least the protein and vegetables. Drink more milk instead of just water to help get calories and electrolytes and protein in. Get at least 6 to 8 cups of fluids daily. Consider getting half from Milk and Juice and other fluids with calories. Okay to have sugars 180 or lower when not fasting and fasting sugars 150 or lower. If BP drops under 90 for top number, drink 2 cups of fluids under 5 minutes to get BP up. [facility]06[facility] History of Present illness Narrative* Eliza Zamora MD - 08/09/2022 9:41 AM EDT This note was created using Tivra. Subjective Inna Ortiz is a 67 year old male. Patient presents with: Recheck: 3 month follow up SUBJECTIVE: Inna Ortiz is a 67 year old year old gentleman here today for 3 month follow up appointment for review of medical conditions. Has follow up appointments with cardiology and neurology soon. Still having issues with passing out or falling asleep while sitting on toilet. Falls asleep easily throughout the day. Sister worries about narcolepsy but not describing a typical drop attack. Passed out 8 times since May--has to be shaken awake and then cries. 06/19, 06/27, 07/13,07/18, 08/04, 08/05 and 08/07. One other date does not recall. BPs still running low mostly 60s to 90s. Since 07/30, staying 90 to 110s. Pushing water every 45 minutes. Some electrolyte dinks too. Continues to work with GI for constipation issues. To try [employer]. 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 simvastatin (ZOCOR) 20 mg tablet Take 1 tablet by mouth daily at bedtime. cyanocobalamin (VITAMIN B-12) 1,000 mcg tab Take 1 tablet by mouth once daily. blood sugar diagnostic (BLOOD GLUCOSE TEST) test strip Test blood sugar(s) 2 times daily. Dx: Type 2 DM - Uncontrolled E11.65 Insulin: No nitroglycerin (NITROLINGUAL) 400 mcg/spray spray Dissolve 1 [place] under the tongue every 5 minutes as needed. fluticasone (FLONASE) 50 mcg/actuation nasal spray Use 2 Sprays in each nostril once daily. Rinse mouth after use. Lactobacillus rhamnosus GG (CULTURELLE ORAL) Take 1 capsule by mouth once daily. cholecalciferol, vitamin D3, (VITAMIN D3 ORAL) Take by mouth. glucosamine/chondr [place] A sod (OSTEO BI-FLEX ORAL) Take by mouth once daily. Lancets lancets Test blood sugar(s) two times daily. Dx: E11.9. Insulin: No aspirin, enteric coated (ECOTRIN LOW STRENGTH) 81 mg EC tablet Take 1 tablet by mouth once daily. famotidine (PEPCID) 20 mg tablet Take 1 tablet by mouth once daily. (Per GI) docusate sodium (COLACE) 100 mg capsule Take 200 mg by mouth daily with breakfast. No current facility-administered medications for this visit. Review of Systems Objective BP 94/68 Pulse 69 Resp 16 Wt 53.1 kg (117 lb) SpO2 94% BMI 17.28 kg/m 08/09/22 0911 08/09/22 1008 08/09/22 1012 BP: 94/68 100/60 112/60 BP Position: Sitting Standing Pulse: 69 Resp: 16 SpO2: 94% Weight: 53.1 kg (117 lb) Last 5 Encounter Wt Readings: Date: Wt: 08/09/2022 53.1 kg (117 lb) 06/28/2022 54.4 kg (120 lb) 05/01/2022 55.8 kg (123 lb) 04/17/2022 57.2 kg (126 lb) 04/03/2022 56.2 kg (124 lb) No waist measurement recorded Estimated body mass index is 17.28 kg/m as calculated from the following: Height as of 03/10/22: 175.3 cm (5' 9 ). Weight as of this encounter: 53.1 kg (117 lb). Last 5 Encounter BP Readings: Date: BP: 08/09/2022 112/60 06/28/2022 118/62 05/01/2022 100/64 04/17/2022 110/70 04/03/2022 120/70 Physical Exam Vitals reviewed. Constitutional: Appearance: He is underweight. Eyes: Conjunctiva/sclera: Conjunctivae normal. Cardiovascular: Rate and Rhythm: Normal rate and regular rhythm. Heart sounds: Normal heart sounds. Pulmonary: Effort: Pulmonary effort is normal. Breath sounds: Normal breath sounds. Skin: General: Skin is warm and dry. Neurological: General: No focal deficit present. Mental Status: He is alert and oriented to person, place, and time. Psychiatric: Behavior: Behavior is cooperative. Cognition and Memory: Cognition is impaired. Comments: Responds nonverbally to questions Assessment and Plan Encounter Diagnosis ICD-10-CM 1. Type 2 diabetes mellitus with polyneuropathy (HCC) E11.42 COMP METABOLIC PANEL HGB A1C 2. Underweight R63.6 3. Primary hypertension I10 COMP METABOLIC PANEL CBC 4. Daytime sleepiness R40.0 5. Polyuria R35.89 OSMOLALITY URINE COMP METABOLIC PANEL 6. 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 Other hyperlipidemia E78.49 LIPID PANEL, NONFASTING 8. Vasovagal reaction R55 9. Chronic fatigue R53.82 VITAMIN D 25 HYDROXY 10. Encounter for long-term current use of medication Z79.899 OSMOLALITY URINE COMP METABOLIC PANEL CBC LIPID PANEL, NONFASTING MAGNESIUM BLD HGB A1C 11. Weight loss, unintentional R63.4 Above issues addressed with patient, sister and mother--all involved in shared decision making for management of medical issues. Daughter does the talking for all of them. History and medications reviewed. Epic updated as needed Refills and/or prescriptions taken care of and meds adjusted as indicated after reviewed history, exam and labs. Health Maintenance reviewed. Updated record and/or ordered tests as recorded. Encouraged on efforts at healthy diet and regular exercise and adequate sleep. See patient instructions. Encouraged to increase food intake and not worry about diabetes at this time. Control does not need to be as tight as sister worries about. Given his weight loss with BMI now under 18, main priority is increase calorie and protein intake to prevent further weight loss. Eliza Zamora MD [facility] Miscellaneous Notes* Telephone Encounter - Laura Flores Pss - 08/01/2022 8:20 AM EDT Patient is out of his medication. * Telephone Encounter - Laura Flores Pss - 08/01/2022 8:19 AM EDT Pharmacy verified in [facility] Patient has been identified by name and date of : Yes Patient aware RX will be sent to pharmacy. No need to notify patient. Spouse phones for refill(s): Requested Prescriptions Pending Prescriptions Disp Refills oxybutynin ER (DITROPAN XL) 10 mg 24 hr tablet 90 tablet 3 Sig: Take 1 tablet by mouth once daily. Date of last office visit : 06/28/2022 Date of next office visit : 08/09/2022 Last 2 Encounter Wt Readings: Date: Wt: 06/28/2022 54.4 kg (120 lb) 05/01/2022 55.8 kg (123 lb) Not applicable Please advise. Laura Flores Pss documented [facility]05[facility]23 NoteHNO ID: [id number] Author: Eliza Zamora MD Service: ? Author Type: Physician Type: Progress Notes Filed: 07/19/2022 4:24 PM Note Text: This note was created using NoteWriter. Subjective Inna Ortiz is a 67 year old male. Patient presents with: ED Follow-up: [facility] ER follow up from 06/26/2022 SUBJECTIVE: Inna Ortiz is a 67 year old year old gentleman here today for ED follow up appointment for review of medical conditions. Reviewed episodes of syncope. Was at [facility] ED. Also falls asleep easily throughout the day. Orthostatic vitals were negative. Also noted results of studies per GI. To start Colestipol. No RX at pharmacy yet. Has GI follow up this month. Labs, CT head and CXR--unremarkable. Reviewed records from [facility] ED: diagnosis of syncope, vasovagal, and mild dehydration. Still always feels cold per sister. She makes sure he wears layers. Has him wearing compression socks. BP was better in ED than was at home. Dropping things. Seems to be staggery with walking . Blood sugars well controlled. 94-104 SBPs 91 to 110s, mostly Still eating well. Three meals a day and snacks. Already told may liberalize diet for sodium and sugars. Issues with brushing teeth at night. Only sugar free candy at night because does not brush teeth. 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 omeprazole (PRILOSEC) 40 mg capsule Take 1 capsule by mouth once daily. simvastatin (ZOCOR) 20 mg tablet Take 1 tablet by mouth daily at bedtime. cyanocobalamin (VITAMIN B-12) 1,000 mcg tab Take 1 tablet by mouth once daily. blood sugar diagnostic (BLOOD GLUCOSE TEST) test strip Test blood sugar(s) 2 times daily. Dx: Type 2 DM - Uncontrolled E11.65 Insulin: No nitroglycerin (NITROLINGUAL) 400 mcg/spray spray Dissolve 1 [place] under the tongue every 5 minutes as needed. oxybutynin ER (DITROPAN XL) 10 mg 24 hr tablet Take 1 tablet by mouth once daily. fluticasone (FLONASE) 50 mcg/actuation nasal spray Use 2 Sprays in each nostril once daily. Rinse mouth after use. Lactobacillus rhamnosus GG (CULTURELLE ORAL) Take 1 capsule by mouth once daily. cholecalciferol, vitamin D3, (VITAMIN D3 ORAL) Take by mouth. glucosamine/chondr [place] A sod (OSTEO BI-FLEX ORAL) Take by mouth once daily. Lancets lancets Test blood sugar(s) two times daily. Dx: E11.9. Insulin: No aspirin, enteric coated (ECOTRIN LOW STRENGTH) 81 mg EC tablet Take 1 tablet by mouth once daily. No current facility-administered medications for this visit. Review of Systems Objective BP 118/62 Pulse 72 Temp (!) 35.9 ?C (96.6 ?F) Resp 18 Wt 54.4 kg (120 lb) SpO2 97% BMI 17.72 kg/m? Last 5 Encounter Wt Readings: Date: Wt: 06/28/2022 54.4 kg (120 lb) 05/01/2022 55.8 kg (123 lb) 04/17/2022 57.2 kg (126 lb) 04/03/2022 56.2 kg (124 lb) 03/18/2022 56.2 kg (124 lb) No waist measurement recorded Estimated body mass index is 17.72 kg/m? as calculated from the following: Height as of 03/10/22: 175.3 cm (5' 9 ). Weight as of this encounter: 54.4 kg (120 lb). Last 5 Encounter BP Readings: Date: BP: 06/28/2022 118/62 05/01/2022 100/64 04/17/2022 110/70 04/03/2022 120/70 03/10/2022 100/76 Physical Exam Vitals reviewed. Constitutional: General: He is not in acute distress. Appearance: He is underweight. HENT: Head: Normocephalic. Eyes: Conjunctiva/sclera: Conjunctivae normal. Cardiovascular: Rate and Rhythm: Normal rate and regular rhythm. Heart sounds: Normal heart sounds. Pulmonary: Effort: Pulmonary effort is normal. Breath sounds: Normal breath sounds. Skin: General: Skin is warm and dry. Neurological: General: No focal deficit present. Mental Status: He is alert and oriented to person, place, and time. Psychiatric: Mood and Affect: Affect is flat. Speech: He is noncommunicative. Behavior: Behavior is cooperative. Comments: Appears to be paying attention to conversation with his sister and mother and me. Sometimes grunts as if acknowledging questions from sister. Hemoglobin A1C (%) Date Value 03/01/2022 5.7 11/23/2021 5.7 05/20/2021 6.0 11/18/2020 6.1 05/15/2020 6.2 08/25/2019 6.0 11/02/2018 6.1 05/04/2018 6.1 Assessment and Plan Encounter Diagn (more content not included)...[facility] 05-01-2022 NoteHNO ID: [id number] Author: Ambar Ladd APRN.TEAM MANAGER Service: ? Author Type: Nurse Practitioner Type: Progress Notes Filed: 05/01/2022 1:44 PM Note Text: SUBJECTIVE Inna Ortiz is a 67 year old male here today for a check up on his medical problems. Chief Complaint Patient presents with: Weight Problem Blood Pressure: still running low HPI Inna Ortiz is a 67 year old male established patient of Dr. Zamora. Accompanied today by his sister who is his caregiver and by his mother. Here today for blood pressure follow up and weight check. Weight today is 123 lbs, from about a year ago (05/05/2021) he weighed 148 (25 pound loss) but from about 6 months ago (11/29/2021) he is only down by 5 pounds, weighed 128 pounds then. Appetite is good. Cleans plate off. He drinks a protein shake a day. Pedialyte once per day. Thinks he is not sleeping well. Goes to bed around 7:30 pm. Gets up around 6-6:30. Some increased agitation at times. Blood pressure is stable. He has seen cardiology since his last visit. Coreg has been discontinued and patient for them was asymptomatic. Recommended monitoring. On average at home he runs around 100's/60's His medications were reviewed today and his list is now up to date. Medications Current Outpatient Medications Medication Sig docusate sodium (COLACE) 100 mg capsule Take 200 mg by mouth daily with breakfast. omeprazole (PRILOSEC) 40 mg capsule Take 1 capsule by mouth once daily. simvastatin (ZOCOR) 20 mg tablet Take 1 tablet by mouth daily at bedtime. cyanocobalamin (VITAMIN B-12) 1,000 mcg tab Take 1 tablet by mouth once daily. nitroglycerin (NITROLINGUAL) 400 mcg/spray spray Dissolve 1 [place] under the tongue every 5 minutes as needed. oxybutynin ER (DITROPAN XL) 10 mg 24 hr tablet Take 1 tablet by mouth once daily. fluticasone (FLONASE) 50 mcg/actuation nasal spray Use 2 Sprays in each nostril once daily. Rinse mouth after use. Lactobacillus rhamnosus GG (CULTURELLE ORAL) Take 1 capsule by mouth once daily. cholecalciferol, vitamin D3, (VITAMIN D3 ORAL) Take by mouth. glucosamine/chondr victoria A sod (OSTEO BI-FLEX ORAL) Take by mouth once daily. aspirin, enteric coated (ECOTRIN LOW STRENGTH) 81 mg EC tablet Take 1 tablet by mouth once daily. blood sugar diagnostic (BLOOD GLUCOSE TEST) test strip Test blood sugar(s) 2 times daily. Dx: Type 2 DM - Uncontrolled E11.65 Insulin: No Lancets lancets Test blood sugar(s) two times daily. Dx: E11.9. Insulin: No No current facility-administered medications for this visit. ALLERGIES Allergen Reactions Macrobid [Nitrofura* Rash Cefdinir Rash ACTIVE PROBLEM LIST Weight Loss, Abnormal - 09/01/2021 Dysphagia - 09/01/2021 Urinary Incontinence - 05/30/2021 Gait Abnormality - 04/20/2021 Acid Indigestion - 05/19/2020 Overactive Bladder - 08/14/2018 Atherosclerosis of [place] Coronary Artery of [place] Heart With Angina Pectoris (Hcc) - 04/23/2015 Cardiomyopathy (Hcc) - 04/20/2014 Type 2 Diabetes Mellitus With Polyneuropathy ([facility]) - 02/20/2014 Comment: belinda Anders. Nail dystrophy. 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 Negative for hallucinations and self-injury. The patient is not nervous/anxious and is not hyperactive. OBJECTIVE BP 100/64 Pulse 89 Wt 123 lb (55.8kg) SpO2 99% Physical Exam Vitals and nursing note reviewed. Constitutional: General: He is awake. He is not in acute distress. Appearance: Normal appearance. He is well-groomed. He is not ill-appearing, toxic-appearing or diaphoretic. HENT: Head: Normocephalic. Right Ear: External ear normal. Left Ear: External ear normal. Nose: Nose normal. Eyes: General: Vision grossly intact. Conjunctiva/sclera: Conjunctivae normal. Pupils: Pupils are equal, round, and reactive to light. Neck: Vascular: No JVD. Trachea: Trachea normal. Cardiovascular: Rate and Rhythm: Normal rate and regular rhythm. Pulses: Normal pulses. Heart sounds: Normal heart sounds. No murmur heard. Pulmonary: Effort: Pulmonary effort is normal. No accessory muscle usage, prolonged expiration or respiratory distress. Breath sounds: Normal breath sounds. Musculoskeletal: Cervical back: Neck supple. Skin: General: Skin is warm and dry. Capillary Refill: Capillary refill takes less than 2 seconds. Neurological: General: No focal deficit present. Mental Status: He is alert. Mental status is at baseline. Psychiatric: Attention and Perception: Attention and perception normal. Mood and Affect: Mood and affect normal. Speech: Speech normal. Behav (more content not included)...[facility]03-06-2023 History of Present illness Narrative* Ambar Ladd APRN.PRITESH - 05/01/2022 1:06 PM EST SUBJECTIVE Inna Ortiz is a 67 year old male here today for a check up on his medical problems. Chief Complaint Patient presents with: Weight Problem Blood Pressure: still running low HPI Inna Ortiz is a 67 year old male established patient of Dr. Zamora. Accompanied today by hissister who is his caregiver and by his mother. Here today for blood pressure follow up and weight check. Weight today is 123 lbs, from about a year ago (05/05/2021) he weighed 148 (25 pound loss) butfrom about 6 months ago (11/29/2021) he is only down by 5 pounds, weighed 128 pounds then. Appetiteis good. Cleans plate off. He drinks a protein shake a day. Pedialyte once per day. Thinks he is not sleeping well. Goes to bed around 7:30 pm. Gets up around 6- 6:30. Some increased agitation at times. Blood pressure is stable. He has seen cardiology since his last visit. Coreg has been discontinued and patient for them was asymptomatic. Recommended monitoring. On average at home he runs around 100's/60's His medications were reviewed today and his list is now up to date. Medications Current Outpatient Medications Medication Sig docusate sodium (COLACE) 100 mg capsule Take 200 mg by mouth daily with breakfast. omeprazole (PRILOSEC) 40 mg capsule Take 1 capsule by mouth once daily. simvastatin (ZOCOR) 20 mg tablet Take 1 tablet by mouth daily at bedtime. cyanocobalamin (VITAMIN B-12) 1,000 mcg tab Take 1 tablet by mouth once daily. nitroglycerin (NITROLINGUAL) 400 mcg/spray spray Dissolve 1 [place] under the tongue every 5 minutes as needed. oxybutynin ER (DITROPAN XL) 10 mg 24 hr tablet Take 1 tablet by mouth once daily. fluticasone (FLONASE) 50 mcg/actuation nasal spray Use 2 Sprays in each nostril once daily. Rinse mouth after use. Lactobacillus rhamnosus GG (CULTURELLE ORAL) Take 1 capsule by mouth once daily. cholecalciferol, vitamin D3, (VITAMIN D3 ORAL) Take by mouth. glucosamine/chondr victoria A sod (OSTEO BI-FLEX ORAL) Take by mouth once daily. aspirin, enteric coated (ECOTRIN LOW STRENGTH) 81 mg EC tablet Take 1 tablet by mouth once daily. blood sugar diagnostic (BLOOD GLUCOSE TEST) test strip Test blood sugar(s) 2 times daily. Dx: Type 2 DM - Uncontrolled E11.65 Insulin: No Lancets lancets Test blood sugar(s) two times daily. Dx: E11.9. Insulin: No No current facility-administered medications for this visit. ALLERGIES Allergen Reactions Macrobid [Nitrofura* Rash Cefdinir Rash ACTIVE PROBLEM LIST Weight Loss, Abnormal - 09/01/2021 Dysphagia - 09/01/2021 Urinary Incontinence - 05/30/2021 Gait Abnormality - 04/20/2021 Acid Indigestion - 05/19/2020 Overactive Bladder - 08/14/2018 Atherosclerosis of [place] Coronary Artery of [place] Heart With Angina Pectoris ([facility]) - 04/23/2015 Cardiomyopathy ([facility]) - 04/20/2014 Type 2 Diabetes Mellitus With Polyneuropathy ([facility]) - 02/20/2014 Comment: [place], bilateral. Nail dystrophy. 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 Negative for hallucinations and self-injury. The patient is not nervous/anxious and is not hyperactive. OBJECTIVE BP 100/64 Pulse 89 Wt 123 lb (55.8kg) SpO2 99% Physical Exam Vitals and nursing note reviewed. Constitutional: General: He is awake. He is not in acute distress. Appearance: Normal appearance. He is well-groomed. He is not ill-appearing, toxic-appearing or diaphoretic. HENT: Head: Normocephalic. Right Ear: External ear normal. Left Ear: External ear normal. Nose: Nose normal. Eyes: General: Vision grossly intact. Conjunctiva/sclera: Conjunctivae normal. Pupils: Pupils are equal, round, and reactive to light. Neck: Vascular: No JVD. Trachea: Trachea normal. Cardiovascular: Rate and Rhythm: Normal rate and regular rhythm. Pulses: Normal pulses. Heart sounds: Normal heart sounds. No murmur heard. Pulmonary: Effort: Pulmonary effort is normal. No accessory muscle usage, prolonged expiration or respiratory distress. Breath sounds: Normal breath sounds. Musculoskeletal: Cervical back: Neck supple. Skin: General: Skin is warm and dry. Capillary Refill: Capillary refill takes less than 2 seconds. Neurological: General: No focal deficit present. Mental Status: He is alert. Mental status is at baseline. Psychiatric: Attention and Perception: Attention and perception normal. Mood and Affect: Mood and affect normal. Speech: Speech normal. Behavior: Behavior normal. Behavior is cooperative. Thought Content: Thought content normal. Cognition and Memory: Cognition and memory normal. Judgment: Judgment normal. ASSESSMENT/PLAN: 1. Weight loss, unintentional - ICD9: 783.21, ICD10: R63.4 (primary diagnosis) Discussed that weight loss has significantly slowed, can encourage high calorie intake, protein shake okay 1-2 times a day. 2. Primary hypertension - ICD9: 401.9, ICD10: I10 - good control Actually has been off of medicine and doing well. Discussed reasonable range for blood pressure. Appropriate salt intake to help keep blood pressure up since has been lower. 3. Type 2 diabetes mellitus with polyneuropathy (HCC) - ICD9: 250.60, 357.2, ICD10: E11.42 - Controlled Discussed diet with sister. 4. Delay in development - ICD9: 783.40, ICD10: R62.50 Sister is decision maker. Noticing some increased agitation at times but seems manageable. Portions of this note have been entered by ancillary staff. I have reviewed and when necessary edited, so that they are an adequate record of my encounter with this patient Please note that parts of this document were created using voice recognition software and therefore may contain grammatical errors. Patient verbalizes understanding of instructions from today's visit and in agreement with treatmentplan. Questions answered. Agrees to call the office if questions, concerns of issues with acute symptoms not improving or if they worsen. Return in about 3 months (around 08/01/2022) for follow up Dr. Zamora if available. Ambar Ladd APRN-PRITESH [facility] NoteHNO ID: [id number] Author: Dl Wheeler MD Service: ? Author Type: Physician Type: Progress Notes Filed: 04/17/2022 1:49 PM Note Text: Dl Wheeler MD Interventional Cardiology [place] [address], [place] [address] [phone] Chief Complaint Patient presents with: Established Patient Follow-Up HISTORY OF PRESENT ILLNESS: Mr. Ortiz is a 67 year old male seen in my office today for assessment management of his cardiomyopathy and primary hypertension patient had mild LV systolic dysfunction in the past recent echo shows ejection fraction of 39% ?5 he has no symptoms or signs of congestive heart failure recently there is a concern about low blood pressures his systolic pressure goes down to 80 Coreg was discontinued with Clinically he is asymptomatic denies chest pain or shortness of breath he has no clinical finding of congestive heart failure Cardiac Risk Factors age (male over 45, female over 55), hypertension PAST MEDICAL HISTORY Diagnosis Date CONVULSIONS, OTHER 10/10/2004 none since age 10 Dysmetabolic syndrome X 10/10/2004 LATE EFF,CV DIS,UNSPECIFIED 10/10/2004 Obesity, unspecified 10/10/2004 Other primary cardiomyopathies 04/20/2014 Prostate nodule 03/06/2022 Stroke (cerebrum) (HCC) Type II or unspecified type diabetes mellitus without mention of complication, not stated as uncontrolled 02/20/2014 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) 10/10/2004 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 Unspecified essential hypertension 10/10/2004 PAST SURGICAL HISTORY Procedure Laterality Date LAPAROSCOPY SURG RPR INITIAL INGUINAL HERNIA Left 07/20/2016 plus umbilica hernia repair FAMILY HISTORY Problem Relation Age of Onset Coronary Artery Disease Father Heart Father MS AT AGE 63 COPD Sister Asthma Sister No Known Problems Maternal Grandmother No Known Problems Maternal Grandfather No Known Problems Paternal Grandmother No Known Problems Paternal Grandfather Colon Cancer Other Cancer Other LUNG Diabetes Other Emphysema Other Social History Tobacco Use Smoking status: Never Smokeless tobacco: Never Vaping Use Vaping Use: Never used Substance Use Topics Alcohol use: No Drug use: No ALLERGIES Allergen Reactions Macrobid [Nitrofura* Rash Cefdinir Rash Medications: Current Outpatient Medications Medication Sig Dispense Refill multivitamin-ferrous fumarate-folic acid (DAILY VITAMIN FORMULA-IRON) Take 1 tablet by mouth once daily. docusate sodium (COLACE) 100 mg capsule Take 200 mg by mouth daily with breakfast. omeprazole (PRILOSEC) 40 mg capsule Take 1 capsule by mouth once daily. 90 capsule 3 simvastatin (ZOCOR) 20 mg tablet Take 1 tablet by mouth daily at bedtime. 90 tablet 3 cyanocobalamin (VITAMIN B-12) 1,000 mcg tab Take 1 tablet by mouth once daily. blood sugar diagnostic (BLOOD GLUCOSE TEST) test strip Test blood sugar(s) 2 times daily. Dx: Type 2 DM - Uncontrolled E11.65 Insulin: No 200 Strip 3 nitroglycerin (NITROLINGUAL) 400 mcg/spray spray Dissolve 1 [place] under the tongue every 5 minutes as needed. 12 g 1 oxybutynin ER (DITROPAN XL) 10 mg 24 hr tablet Take 1 tablet by mouth once daily. 90 tablet 3 fluticasone (FLONASE) 50 mcg/actuation nasal spray Use 2 Sprays in each nostril once daily. Rinse mouth after use. 1 Each 11 Lactobacillus rhamnosus GG (CULTURELLE ORAL) Take 1 capsule by mouth once daily. cholecalciferol, vitamin D3, (VITAMIN D3 ORAL) Take by mouth. glucosamine/chondr [place] A sod (OSTEO BI-FLEX ORAL) Take by mouth once daily. Lancets lancets Test blood sugar(s) two times daily. Dx: E11.9. Insulin: No 100 Each 11 aspirin, enteric coated (ECOTRIN LOW STRENGTH) 81 mg EC tablet Take 1 tablet by mouth once daily. 0 carvedilol (COREG) 3.125 mg tablet Take 1 tablet by mouth twice daily. Hold medicine if blood pressure is less than 120/70 180 tablet 3 Current Facility-Administered Medications Medication Dose Route Frequency Provider Last Rate Last Admin perflutren lipid microspheres 1.3 mL in NaCl (PF) 0.9% 10 mL injection (DEFINITY) INTRAVENOUS DIRECTED PRN Eliza Zamora MD Review of Systems Constitutional: Negative for chills, diaphoresis, fever, malaise/fatigue and weight loss. HENT: Negative for congestion, ear discharge, ear pain, hearing loss, nosebleeds, sinus pain, sore throat and tinnitus. Eyes: Negative for blurred vision, double vision, photophobia, pain, discharge and redness. Respiratory: Negative for cough, hemoptysis, sputum production, shortness of breath, wheezing and stridor. Cardiovascular: Negative for chest pain, palpitations, orthopnea, claudication, leg swelling and PND. Gastrointestinal: Negative for abdominal pain, blood in stool, constipation, diarrhea, heartburn, melena, nausea and vomiting. Genitourinary: Negative for dysuria, flank pain, frequency, hematur (more content not included)...[facility]02-06-2023 Miscellaneous Notes * Telephone Encounter - Diana Lynch RN - 04/03/2022 11:16 AM EST Sister Angie notified. Voices understanding. Daina Lynch RN * Telephone Encounter - Diana Lynch RN - 04/03/2022 11:16 AM EST Numbers are reviewed Will stop the coreg Cont monitoring BP daily sleik * Telephone Encounter - Diana Lynch RN - 03/31/2022 3:07 PM EST Sister Angie calling in with the following blood pressure readings. Has been taking BID for past several days. Feels as though it is too low (sleepy, increased tiredness). : 03/23/22 83/55 p. 75 03/23/22 94/64 p. 62 03/24/22 98/57 p. 73 03/24/22 88/53 p. 76 03/25/22 91/57 p. 72 03/25/22 83/57 p. 82 03/26/22 93/55 p. 70 03/26/22 98/65 p. 77 03/26/22/ 83/56 p. 83 03/27/22 94/59 p. 71 03/27/22 94/58 p. 69 03/31/22 88/52 p. 81 03/31/22 97/54 p. 72 Please review and advise. Pt has appt. on 04/17/[address] Wheeler. Pt. taking 3.125mg Carvedilol BID. Diana Lynch RN [facility] History of Present illness Narrative* Ambar Ladd APRN.TEAM MANAGER - 04/03/2022 8:15 AM EST SUBJECTIVE Inna E Mizer is a 67 year old male here today for a check up on his medical problems. Chief Complaint Patient presents with: Recheck: blood pressure low HPI Inna Ortiz is a 67 year old male. He is accompanied by his sister Angie. Here for follow up on blood pressure. Has been working on blood pressure issues and weight loss with Dr. Zamora. Cardiology wasn't overly helpful. Blood pressures have been very low. More tired. Stopped metformin too. Blood sugars doing well, average around 110, highest 140. Drinking a protein shake daily. Pedialyte once per day. See scanned sheet for home bp readings. His medications were reviewed today and his list is now up to date. Medications Current Outpatient Medications Medication Sig multivitamin-ferrous fumarate-folic acid (DAILY VITAMIN FORMULA-IRON) Take 1 tablet by mouth once daily. carvedilol (COREG) 3.125 mg tablet Take 1 tablet by mouth twice daily. Hold medicine if blood pressure is less than 120/70 docusate sodium (COLACE) 100 mg capsule Take 200 mg by mouth daily with breakfast. omeprazole (PRILOSEC) 40 mg capsule Take 1 capsule by mouth once daily. simvastatin (ZOCOR) 20 mg tablet Take 1 tablet by mouth daily at bedtime. cyanocobalamin (VITAMIN B-12) 1,000 mcg tab Take 1 tablet by mouth once daily. nitroglycerin (NITROLINGUAL) 400 mcg/spray spray Dissolve 1 [place] under the tongue every 5 minutes as needed. oxybutynin ER (DITROPAN XL) 10 mg 24 hr tablet Take 1 tablet by mouth once daily. fluticasone (FLONASE) 50 mcg/actuation nasal spray Use 2 Sprays in each nostril once daily. Rinse mouth after use. Lactobacillus rhamnosus GG (CULTURELLE ORAL) Take 1 capsule by mouth once daily. cholecalciferol, vitamin D3, (VITAMIN D3 ORAL) Take by mouth. glucosamine/chondr [place] A sod (OSTEO BI-FLEX ORAL) Take by mouth once daily. aspirin, enteric coated (ECOTRIN LOW STRENGTH) 81 mg EC tablet Take 1 tablet by mouth once daily. blood sugar diagnostic (BLOOD GLUCOSE TEST) test strip Test blood sugar(s) 2 times daily. Dx: Type 2 DM - Uncontrolled E11.65 Insulin: No Lancets lancets Test blood sugar(s) two times daily. Dx: E11.9. Insulin: No Current Facility-Administered Medications Medication Dose Route Frequency perflutren lipid microspheres 1.3 mL in NaCl (PF) 0.9% 10 mL injection (DEFINITY) INTRAVENOUS DIRECTED PRN ALLERGIES Allergen Reactions Macrobid [Nitrofura* Rash Cefdinir Rash ACTIVE PROBLEM LIST Weight Loss, Abnormal - 09/01/2021 Dysphagia - 09/01/2021 Urinary Incontinence - 05/30/2021 Gait Abnormality - 04/20/2021 Acid Indigestion - 05/19/2020 Overactive Bladder - 08/14/2018 Atherosclerosis of [place] Coronary Artery of [place] Heart With Angina Pectoris ([facility]) - 04/23/2015 Cardiomyopathy ([facility]) - 04/20/2014 Type 2 Diabetes Mellitus With Polyneuropathy ([facility]) - 02/20/2014 Comment: [place], bilateral. Nail dystrophy. 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 Respiratory: Negative. Cardiovascular: Negative. OBJECTIVE BP 120/70 Pulse 76 Wt 124 lb (56.2kg) SpO2 100% Physical Exam Vitals and nursing note reviewed. Constitutional: General: He is awake. He is not in acute distress. Appearance: Normal appearance. He is well-developed and well-groomed. He is not ill-appearing, toxic-appearing or diaphoretic. HENT: Head: Normocephalic. Right Ear: External ear normal. Left Ear: External ear normal. Nose: Nose normal. Eyes: General: Vision grossly intact. Conjunctiva/sclera: Conjunctivae normal. Pupils: Pupils are equal, round, and reactive to light. Neck: Vascular: No JVD. Trachea: Trachea normal. Cardiovascular: Rate and Rhythm: Normal rate and regular rhythm. Pulses: Normal pulses. Heart sounds: Normal heart sounds. No murmur heard. Pulmonary: Effort: Pulmonary effort is normal. No accessory muscle usage, prolonged expiration or respiratory distress. Breath sounds: Normal breath sounds. Musculoskeletal: Cervical back: Neck supple. Skin: General: Skin is warm and dry. Capillary Refill: Capillary refill takes less than 2 seconds. Neurological: General: No focal deficit present. Mental Status: He is alert. Mental status is at baseline. Psychiatric: Attention and Perception: Attention and perception normal. Mood and Affect: Mood and affect normal. Speech: Speech normal. Behavior: Behavior normal. Behavior is cooperative. Thought Content: Thought content normal. Cognition and Memory: Cognition and memory normal. Judgment: Judgment normal. ASSESSMENT/PLAN: 1. Weight loss, unintentional - ICD9: 783.21, ICD10: R63.4 (primary diagnosis) Weight stable, reviewed diet intake with patient's sister. Will continue to monitor. Continue with protein supplements daily. 2. Primary hypertension - ICD9: 401.9, ICD10: I10 - actually on hypotensive side Given parameters to hold low dose beta jason - Recommend home blood pressure monitoring, to bring results in on next visit - Follow up in 1 month for BP recheck. 3. Type 2 diabetes mellitus with polyneuropathy (HCC) - ICD9: 250.60, 357.2, ICD10: E11.42 Controlled. - doing well off of metformin, might see some weight increase with stopping this Portions of this note have been entered by ancillary staff. I have reviewed and when necessary edited, so that they are an adequate record of my encounter with this patient Please note that parts of this document were created using voice recognition software and therefore may contain grammatical errors. Patient verbalizes understanding of instructions from today's visit and in agreement with treatmentplan. Questions answered. Agrees to call the office if questions, concerns of issues with acute symptoms not improving or if they worsen. Return in about 1 month (around 05/01/2022) for weight check, blood pressure check. Ambar Ladd APRN-PRITESH documented in this encounterP[facility]01-31-2023 Miscellaneous Notes* Telephone Encounter - Diana Lynch RN - 03/28/2022 12:59 PM EST Sent. Diana Lynch RN * Telephone Encounter - Adry Ricci RN - 03/28/2022 11:15 AM EST Leti from Pre- Admission testing at [facility] calling and requesting last office visit notesbe faxed to [phone]. documented in this encounterPike [facility] Hospital01-21-2023 Instructions* Patient Instructions* Eliza Zamora MD - 03/18/2022 11:26 AM EST Try finding nutrition supplement (Premier or other) that does not have artifical sugar (sucralose). Okay 30 grams protein. Okay to have more calories. documented in this encounterPike [facility] Hospital01-21-2023 History of Present illness Narrative* Eliza Zamora MD - 03/18/2022 11:14 AM EST This note was created using Socialbombriter. Subjective Inna Ortiz is a 67 year old male. Patient presents with: [facility] ER f/up 03/16 BP SUBJECTIVE: Inna Ortiz is a 67 year old year old gentleman here today for follow up appointment for reviewof medical conditions. Has been taking lower dose carvedilol. 3.1235 mg RX filled last night. Was in ER 03/16 when BP was dropping to 84/59. In ER was orthostatic with standing up and BP [id number] sitting to 96/74 standing--heart rate stayed 85 to 82. Was given IV fluids--1 bag. Reviewed that at the hospital diagnosis of colon cancer and prostate cancer ended up on his record though no diagnosis of either. No prior colonoscopy or biopsy. Suspect in record after seeing Dr. Bey (GI). More diarrhea lately so stopped Culturelle IBS Complete support packet and Centrum Silver Men 50+. Still drinking Premium Protein--30g protein, 160 calories 1g sugar and vitamins and minerals. Drinks one per day. Has sucralose. Still gets urinary incontinence while watching TV. Eats fast. Food log looks well balanced. Gets protein drink with toast and/or cereal in AM. 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 docusate sodium (COLACE) 100 mg capsule Take 200 mg by mouth daily with breakfast. omeprazole (PRILOSEC) 40 mg capsule Take 1 capsule by mouth once daily. simvastatin (ZOCOR) 20 mg tablet Take 1 tablet by mouth daily at bedtime. cyanocobalamin (VITAMIN B-12) 1,000 mcg tab Take 1 tablet by mouth once daily. blood sugar diagnostic (BLOOD GLUCOSE TEST) test strip Test blood sugar(s) 2 times daily. Dx: Type 2 DM - Uncontrolled E11.65 Insulin: No nitroglycerin (NITROLINGUAL) 400 mcg/spray spray Dissolve 1 [place] under the tongue every 5 minutes as needed. oxybutynin ER (DITROPAN XL) 10 mg 24 hr tablet Take 1 tablet by mouth once daily. spironolactone (ALDACTONE) 25 mg tablet Take 0.5 tablets by mouth once daily. metFORMIN (GLUCOPHAGE) 500 mg tablet Take 1 tablet by mouth twice daily with meals. (Patient not taking: Reported on 03/10/2022) fluticasone (FLONASE) 50 mcg/actuation nasal spray Use 2 Sprays in each nostril once daily. Rinse mouth after use. Lactobacillus rhamnosus GG (CULTURELLE ORAL) Take 1 capsule by mouth once daily. cholecalciferol, vitamin D3, (VITAMIN D3 ORAL) Take by mouth. glucosamine/chondr victoria A sod (OSTEO BI-FLEX ORAL) Take by mouth once daily. Lancets lancets Test blood sugar(s) two times daily. Dx: E11.9. Insulin: No aspirin, enteric coated (ECOTRIN LOW STRENGTH) 81 mg EC tablet Take 1 tablet by mouth once daily. Current Facility-Administered Medications Medication Dose Route Frequency perflutren lipid microspheres 1.3 mL in NaCl (PF) 0.9% 10 mL injection (DEFINITY) INTRAVENOUS DIRECTED PRN sodium chloride 0.9 % (flush) 10 mL (BD POSIFLUSH) 10 mL INTRAVENOUS DIRECTED PRN Review of Systems Objective BP 129/79 Pulse 69 Resp 16 Wt 56.2 kg (124 lb) BMI 18.31 kg/m Physical Exam Vitals reviewed. Constitutional: Appearance: Normal appearance. Eyes: Conjunctiva/sclera: Conjunctivae normal. Cardiovascular: Rate and Rhythm: Normal rate and regular rhythm. Heart sounds: Normal heart sounds. Pulmonary: Effort: Pulmonary effort is normal. Breath sounds: Normal breath sounds. Skin: General: Skin is warm and dry. Neurological: General: No focal deficit present. Mental Status: He is alert and oriented to person, place, and time. Assessment and Plan Encounter Diagnosis ICD-10-CM 1. Orthostatic hypotension I95.1 2. Type 2 diabetes mellitus with polyneuropathy (HCC) E11.42 3. Weight loss, unintentional R63.4 4. Delay in development R62.50 5. Chronic fatigue R53.82 6. Dilated cardiomyopathy (HCC) I42.0 7. Need for vaccination Z23 PNEUMOCOCCAL VACCINE (PREVNAR 20) Above issues addressed with patient's sister and mother--both involved in shared decision making for management of medical issues. Patient not able to manage his own health given Sister's main concern is the ongoing weight loss despite having good appetite and eating everythingshe gives him to eat. Avoids certain foods because worried about his diabetes and works at keeping his sugars tightly controlled. Encouraged increased calorie intake and reassurance that does not need really tight control of his sugars at this time Further evaluation and treatment as indicated. Noted fatigue multifactorial, including cardiac issues and weight loss. See cardiology for follow up as usual and as needed. Work on adjusting meds to prevent low BPs and orthostatic hypotension and fatigue. Stay hydrated. Further evaluation and treatment as indicated. History and medications reviewed. Epic updated as needed Refills and/or prescriptions taken care of and meds adjusted as indicated after reviewed history, exam and labs. Health Maintenance reviewed. Updated record and/or ordered tests as recorded. Encouraged on efforts at healthy diet and regular exercise and adequate sleep. I spent a total of 88 minutes on the date of the service which included [id number] patient care, completing clinical documentation, obtaining and/or reviewing separately obtained history, performing a medically appropriate examination, counseling and educating the patient/family/caregiver, and ordering vaccine. Eliza Zamora MD documented in this encounterPike [facility] Hospital01-20-2023 Miscellaneous Notes* Telephone Encounter - Tiffanie Morris - 03/17/2022 1:11 PM EST Patient's sister called back and received the information from the previous message. She voiced understanding and will make the proper adjustments to the patient's daily plan of care. She voiced understanding that she will call the office with the week's BP results. She did not have any follow up questions. * Telephone Encounter - Elvia Lal RN - 03/17/2022 1:08 PM EST Call to pt's sister, Angie to notify of below. LVM to contact office. Rx for Coreg was sent to [facility] LEAH Lal RN I recommend patient can reduce his Coreg to 3.125 mg BID. He should remain on same spironolactone dose of 12.5 mg daily. Please have patient continue to monitor BP and HR 2 x day for one week and call with updated BP log. Has follow up scheduled already with Dr. Wheeler in 1 month. Helena Hughes, AMOS.TEAM MANAGER * Telephone Encounter - Nataliia Varma Ma - 03/17/2022 8:33 AM EST Patients sister, Angie, called in to let office know that she is concerned about patients blood pressure. She took him to the ED yesterday to be checked because she felt his blood pressure was too low. Recent readings at home: 03/11 - 102/63 HR 69 1/15 - 88/54 HR 74 1/16 - 93/58 HR 67 117 - 101/57 HR 68 1/18 - 97/54 HR 67 1 - 84/59 HR 79 - went to ED 03/17 - 88/62 HR 76 Reports he is taking spironolactone 25 mg, 1/2 tablet once daily Carvedolol 12.5 mg, 1/2 tablet twice daily Orthostatic BP at ED is as follows, Lying - 120/75 Sitting - 120/71 Standing - 96/74 He has follow up in the office on 04/17/2022. Angie can be reached at [phone]. documented in this encounterPike [facility] Hospital01-13-2023 History of Present illness Narrative* Huy Rodríguez PA-C - 03/10/2022 11:28 AM EST Images from the original note were not included. [facility] ESTABLISHED PATIENT CLINIC NOTE Some elements copied from his previous note, which have been updated where appropriate, and all reflect current medical decision making from date of this visit. SERVICE DATE: 03/10/2022 SERVICE TIME: 11:28 AM NAME: Inna Ortiz CHIEF COMPLAINT: Prostate finding on CT scan for weight Loss HISTORY OF PRESENT ILLNESS: Inna Ortiz is a 67 year old Male with PMH including bph and OAB presenting with finding of prostate abnormal on recent CT scan The patient reports significant weight Loss and sister is concerned about possible prostate cancer. After full review of records from [facility] there are errors in they diagnoses listed and thye have been printed and given to his sister to be able to Have [facility] records adjust them they have him with diagnosis of Prostate Cancer and Colon Cancer and there have not been any known biopsies to Support these and I suspect they are errors. I reviewed his CT past and present and he has had BPH with the prostate pushing into the bladder seen on CT even back in 2019 there is no change and Its is unlikely to be a prostate cancer nodule based on location and that fact his CT have remainedunchanged and his PSA has been low He is doing well with the Ditropan for his OAB symptoms. LUTS: No New LUTS LABS: Hematocrit (%) Date Value 03/01/2022 49.6 01/18/2022 48.1 11/29/2021 46.4 11/23/2021 50.5 11/18/2020 51.0 11/17/2019 48.3 11/02/2018 48.6 11/03/2017 49.9 PSA (ng/mL) Date Value 05/04/2018 1.99 10/31/2016 1.90 No results found for: TESTOST PSA (ng/mL) Date Value 05/04/2018 1.99 10/31/2016 1.90 Creatinine Date Value Ref Range Status 03/01/2022 0.91 0.73 - 1.22 mg/dL Final 01/18/2022 0.99 0.73 - 1.22 mg/dL Final 11/29/2021 0.92 0.73 - 1.22 mg/dL Final 11/23/2021 1.02 0.73 - 1.22 mg/dL Final MEDICATIONS: docusate sodium (COLACE) 100 mg capsule^Take 200 mg by mouth daily with breakfast.^Disp: ^Rfl: omeprazole (PRILOSEC) 40 mg capsule^Take 1 capsule by mouth once daily.^Disp: 90 capsule^Rfl: 3 simvastatin (ZOCOR) 20 mg tablet^Take 1 tablet by mouth daily at bedtime.^Disp: 90 tablet^Rfl: 3 cyanocobalamin (VITAMIN B-12) 1,000 mcg tab^Take 1 tablet by mouth once daily.^Disp: ^Rfl: blood sugar diagnostic (BLOOD GLUCOSE TEST) test strip^Test blood sugar(s) 2 times daily. Dx: Type 2 DM - Uncontrolled E11.65 Insulin: No^Disp: 200 Strip^Rfl: 3 nitroglycerin (NITROLINGUAL) 400 mcg/spray spray^Dissolve 1 [place] under the tongue every 5 minutes as needed.^Disp: 12 g^Rfl: 1 oxybutynin ER (DITROPAN XL) 10 mg 24 hr tablet^Take 1 tablet by mouth once daily.^Disp: 90 tablet^Rfl: 3 spironolactone (ALDACTONE) 25 mg tablet^Take 0.5 tablets by mouth once daily.^Disp: 45 tablet^Rfl: 3 fluticasone (FLONASE) 50 mcg/actuation nasal spray^Use 2 Sprays in each nostril once daily. Rinse mouth after use.^Disp: 1 Each^Rfl: 11 Lactobacillus rhamnosus GG (CULTURELLE ORAL)^Take 1 capsule by mouth once daily.^Disp: ^Rfl: cholecalciferol, vitamin D3, (VITAMIN D3 ORAL)^Take by mouth.^Disp: ^Rfl: glucosamine/chondr victoria A sod (OSTEO BI-FLEX ORAL)^Take by mouth once daily.^Disp: ^Rfl: Lancets lancets^Test blood sugar(s) two times daily. Dx: E11.9. Insulin: No^Disp: 100 Each^Rfl: 11 aspirin, enteric coated (ECOTRIN LOW STRENGTH) 81 mg EC tablet^Take 1 tablet by mouth once daily.^Disp: ^Rfl: 0 carvedilol (COREG) 3.125 mg tablet^Take 1 tablet by mouth twice daily.^Disp: 180 tablet^Rfl: 3 metFORMIN (GLUCOPHAGE) 500 mg tablet^Take 1 tablet by mouth twice daily with meals.^Disp: 180 tablet^Rfl: 3 (Patient not taking: Reported on 03/10/2022) PAST MEDICAL HISTORY: PAST MEDICAL HISTORY Diagnosis Date CONVULSIONS, OTHER 10/10/2004 none since age 10 Dysmetabolic syndrome X 10/10/2004 LATE EFF,CV DIS,UNSPECIFIED 10/10/2004 Obesity, unspecified 10/10/2004 Other primary cardiomyopathies 04/20/2014 Prostate nodule 03/06/2022 Stroke (cerebrum) (HCC) Type II or unspecified type diabetes mellitus without mention of complication, not stated as uncontrolled 02/20/2014 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) 10/10/2004 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 Unspecified essential hypertension 10/10/2004 PAST SURGICAL HISTORY: PAST SURGICAL HISTORY Procedure Laterality Date LAPAROSCOPY SURG RPR INITIAL INGUINAL HERNIA Left 07/20/2016 plus umbilica hernia repair FAMILY HISTORY: FAMILY HISTORY Problem Relation Age of Onset Coronary Artery Disease Father Heart Father MS AT AGE 63 COPD Sister Asthma Sister No Known Problems Maternal Grandmother No Known Problems Maternal Grandfather No Known Problems Paternal Grandmother No Known Problems Paternal Grandfather Colon Cancer Other Cancer Other LUNG Diabetes Other Emphysema Other SOCIAL HISTORY: Social Connections: Socially Isolated Frequency of Communication with Friends and Family: More than three times a week Frequency of Social Gatherings with Friends and Family: Once a week Attends Yarsani Services: Never Active Member of Clubs or Organizations: No Attends Club or Organization Meetings: Never Marital Status: Never REVIEW OF SYSTEMS: GENERAL: No fever, chills, weight loss, or fatigue. All other systems reviewed and are negative PHYSICAL EXAMINATION: Blood pressure 100/76, pulse 74, temperature 37.1 C (98.7 F), temperature source Temporal, resp. rate 14, height 175.3 cm (5' 9 ), weight 56.7 kg (125 lb), SpO2 94 %. GENERAL: WNL nutrition, no deformities, healthy appearing PROBLEM LIST REVIEW: Yes LABS: Results for orders placed or performed in visit on 03/10/22 UA DIP, URINE (POC) Result Value Ref Range GLUCOSE UA (POCT) 100 (A) Negative mg/dL BILIRUBIN UA (POCT) Negative Negative KETONE UA (POCT) Trace Negative mg/dL SPECIFIC GRAVITY UA (POCT) 1.010 1.005 - 1.030 HEMOGLOBIN/BLOOD UA (POCT) Trace-lysed (A) Negative PH UA (POCT) 5.5 4.5 - 8.0 PROTEIN UA (POCT) Negative Negative mg/dL UROBILINOGEN UA (POCT) 0.2 Normal E.U./dL NITRITE UA (POCT) Negative Negative LEUKOCYTES UA (POCT) Negative Negative COLOR UA (POCT) Yellow CLARITY UA (POCT) Clear PROCEDURES: PVR: 0 ml IMAGING: CT- [facility] showed enlarged prostate pushing into bladder, not much change from previous CT in 2019 which reported the same finding But I see no comparison in results between the reports IMPRESSION/PLAN: 67 year old male with 0 . 1. BPH with urinary obstruction - ICD9: 600.01, 599.69, ICD10: N40.1, N13.8 (primary diagnosis) 2. Urinary incontinence, unspecified type - ICD9: 788.30, ICD10: R32 - UA DIP, URINE (POC) - POST VOID RESIDUAL > continue with Ditropan - refilled > reports printed for sister to go to [facility] medical records to correct errors found > 1 year Appt wCISCO Dumont MT, PA-C for annual follow-up and refills. CISCO oGodman MT, PA-C * Kristen Ramirez LPN - 03/10/2022 8:52 AM EST Verified name and date of . CC Post Void Residual HPI: Inna Ortiz is a 67 year old male. The patient is here now for an appointment with Huy Rodríguez MPAS, MT, KIRBY. Procedure: Explained procedure to patient and verbalizes understanding. Performed a PVR. Patient urinated and instructed to empty bladder as much as possible just prior to having PVR done using bladder ultrasound scanner. Results of scan: 0 mL The patient tolerated the procedure well. Plan: Appointment with Huy. documented in this encounterPike [facility] Hospital01-12-2023 Miscellaneous Notes* Telephone Encounter - Eliza Zamora MD - 03/09/2022 2:23 PM EST See MyChart reply documented in this encounterPike Community Hospital01-12-2023 Miscellaneous Notes* Telephone Encounter - Adry Patel RN - 03/09/2022 12:48 PM EST [facility] called in and reports they do not take Medicaid. She states she thinks [facility] would be their best bet. Called and Pts sister answered. She was put through to scheduling to set upUrology appointment. documented in this encounterPike Community Hospital01-04-2023 Instructions* Patient Instructions* Eliza Zamora MD - 03/01/2022 11:49 AM EST Stop the metformin and take only if sugar is over 150. If sugars start going over 180 frequently, then might need to take metformin when eat more than 50 grams of carbs at a time. documented in this encounterPike Community Hospital01-04-2023 History of Present illness Narrative* Eliza Zamora MD - 03/01/2022 11:41 AM EST Images from the original note were not included. This note was created using ELENZAter. Subjective Inna Ortiz is a 67 year old male. Patient presents with: Established Patient: Follow up SUBJECTIVE: Inna Ortiz is a 67 year old year old gentleman here today for follow up appointment for reviewof medical conditions. BPs here 99/58 on our scale and his scale 99/67 today. At home BPs 110s to 120s most of the time prior to 02/11 but since then taking BPs when relaxed, low BPs 90s to 107 over 60s most of the time. Occasionally gets a little staggery. Sugars have been fine. If sugars lower would take half a metformin instead of whole pill. Still having some issues with constipation. Noted plans to do CT enterography as scheduled. 03/29 endoscopy (EGD and colonosopy). 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 omeprazole (PRILOSEC) 40 mg capsule Take 1 capsule by mouth once daily. simvastatin (ZOCOR) 20 mg tablet Take 1 tablet by mouth daily at bedtime. carvedilol (COREG) 12.5 mg tablet Take 1 tablet by mouth twice daily. cyanocobalamin (VITAMIN B-12) 1,000 mcg tab Take 1 tablet by mouth once daily. blood sugar diagnostic (BLOOD GLUCOSE TEST) test strip Test blood sugar(s) 2 times daily. Dx: Type 2 DM - Uncontrolled E11.65 Insulin: No nitroglycerin (NITROLINGUAL) 400 mcg/spray spray Dissolve 1 [place] under the tongue every 5 minutes as needed. oxybutynin ER (DITROPAN XL) 10 mg 24 hr tablet Take 1 tablet by mouth once daily. spironolactone (ALDACTONE) 25 mg tablet Take 0.5 tablets by mouth once daily. metFORMIN (GLUCOPHAGE) 500 mg tablet Take 1 tablet by mouth twice daily with meals. (Patient takingdifferently: Take 500 mg by mouth twice daily with meals. Takes 1 tablet QHS) fluticasone (FLONASE) 50 mcg/actuation nasal spray Use 2 Sprays in each nostril once daily. Rinse mouth after use. Lactobacillus rhamnosus GG (CULTURELLE ORAL) Take 1 capsule by mouth once daily. cholecalciferol, vitamin D3, (VITAMIN D3 ORAL) Take by mouth. glucosamine/chondr victoria A sod (OSTEO BI-FLEX ORAL) Take by mouth once daily. Lancets lancets Test blood sugar(s) two times daily. Dx: E11.9. Insulin: No aspirin, enteric coated (ECOTRIN LOW STRENGTH) 81 mg EC tablet Take 1 tablet by mouth once daily. Current Facility-Administered Medications Medication Dose Route Frequency perflutren lipid microspheres 1.3 mL in NaCl (PF) 0.9% 10 mL injection (DEFINITY) INTRAVENOUS DIRECTED PRN sodium chloride 0.9 % (flush) 10 mL (BD POSIFLUSH) 10 mL INTRAVENOUS DIRECTED PRN Review of Systems Objective BP 98/58 Pulse 70 Temp 36.6 C (97.9 F) Resp 18 Wt 56 kg (123 lb 8 oz) SpO2 97% BMI 18.37 kg/m Last 5 Encounter Wt Readings: Date: Wt: 03/01/2022 56 kg (123 lb 8 oz) 01/28/2022 57.6 kg (127 lb) 11/29/2021 58.1 kg (128 lb) 10/17/2021 60.4 kg (133 lb 3.2 oz) 09/01/2021 61.7 kg (136 lb) No waist measurement recorded Estimated body mass index is 18.37 kg/m as calculated from the following: Height as of 09/01/21: 174.6 cm (5' 8.75 ). Weight as of this encounter: 56 kg (123 lb 8 oz). Last 5 Encounter BP Readings: Date: BP: 03/01/2022 98/58 01/28/2022 102/62 11/29/2021 98/64 10/17/2021 122/58 09/01/2021 110/64 Physical Exam Vitals reviewed. Constitutional: Appearance: Normal appearance. He is underweight. He is not ill-appearing, toxic-appearing or diaphoretic. Eyes: Conjunctiva/sclera: Conjunctivae normal. Cardiovascular: Rate and Rhythm: Normal rate and regular rhythm. Heart sounds: Normal heart sounds. Pulmonary: Effort: Pulmonary effort is normal. Breath sounds: Normal breath sounds. Skin: General: Skin is warm and dry. Neurological: General: No focal deficit present. Mental Status: He is alert and oriented to person, place, and time. Psychiatric: Mood and Affect: Affect is flat. Behavior: Behavior is cooperative. Comments: Non verbal Assessment and Plan Encounter Diagnosis ICD-10-CM 1. Weight loss, unintentional R63.4 COMP METABOLIC PANEL CBC TSH BLD T4 FREE/FREE THYROX T3 FREE BLD VITAMIN D 25 HYDROXY 2. Dilated cardiomyopathy (HCC) I42.0 3. Type 2 diabetes mellitus with polyneuropathy (HCC) E11.42 COMP METABOLIC PANEL HGB A1C 4. Encounter for immunization Z23 CANCELED: PNEUMOCOCCAL VACCINE (PREVNAR 20) 5. Delay in development R62.50 Above issues addressed with patient's mother and daughter. Patient re=establishing care with me perpatient's mother and sister's request. Main concern is unexplained weight loss. Patient's family involved in shared decision making for management of medical issues. History and medications reviewed. Epic updated as needed Refills and/or prescriptions taken care of and meds adjusted as indicated after reviewed history, exam and labs. Health Maintenance reviewed. Updated record and/or ordered tests as recorded. Encouraged on efforts at healthy diet and regular exercise and adequate sleep. Continue present management. Further evaluation and treatment as indicated. Eliza Zamora MD documented in this encounterPike [facility] Hospital12-29-2022 Miscellaneous Notes* Telephone Encounter - Eliza Zamora MD - 02/23/2022 5:49 PM EST Last 5 Encounter BP Readings: Date: BP: 01/28/2022 102/62 11/29/2021 98/64 10/17/2021 122/58 09/01/2021 110/64 06/07/2021 108/68 Noted BPs at home per [employer] message. Range SBP 96 to 14, with most in 101 to 109 range. See MyChart reply documented in this encounterPike Community Hospital12-19-2022 History of Present illness Narrative* Elvia Lal RN - 02/13/2022 12:22 PM EST 24 ga angio started to RAC. Good blood return. Flushed easily with NSS. Dressing applied. Definity (Lot # [id number] exp 08/26/2022 ) mixed per protocol. 1 cc administered throughout procedure. 9 cc discarded. Pt tolerated procedure well. No C/o's, Hep lock D/c'd and dressing applied. Patient discharged ambulatory with Employment Law Attorney. Elvia Lal RN documented in this encounterPike Community Hospital12-05-2022 Miscellaneous Notes* Telephone Encounter - Sofi Holden LPN - 01/30/2022 1:45 PM EST Attempted to reach Dr. Bey's office and message left. Referral order and records have been faxed with note asking office to call patient to scheduled consult. * Telephone Encounter - Ambar Ladd APRN.PRITESH - 01/30/2022 11:00 AM EST Can we see if scheduling is able to help them out with this? Thanks * Telephone Encounter - Adry Patel RN - 01/30/2022 8:32 AM EST Pts sister called in and reports Pt was supposed to get an upper scope done with Dr Bey since October. She reports that Pt was in to see provider on 01/28/22 and said if they weren't able to get a hold of Dr Bey or make an appointment to let her know. She states she has left messages, but noone has gotten back to them yet. Please call and advise. documented [facility]10[facility]22 Miscellaneous Notes* Telephone Encounter - Kirstin Moffett RN - 12/19/2021 11:03 AM EDT Please advise if anything additional needs to be added. Thank you Kirstin Moffett RN documented in this encounterP[facility]10-04-2022 Instructions* Patient Instructions* Paulina West APRN.CNP - 11/29/2021 9:40 AM EDT Call your sinker winder Dr. Duke about changing Metformin to a different medication documented in this encounterP[facility]10-04-[facility]22 History of Present illness Narrative* Paulina West APRN.CNP - 11/29/2021 9:38 AM EDT CC: Patient presents with: F/U 6 months HPI Inna Ortiz is a 66 year old male who presents today for above. He is here today with mother and sister. He is developmentally delayed and non-verbal. He was last seen in August, family reported concerns about weight loss of 14-16 pounds in a year. He was eating 3 meals a a day and drinking protein shakes and still losing weight. They had also mentioned he was having some troubles swallowing liquids. Lab work-up with CBC, CMP, TSH and urinalysis was normal. Referred to gastroenterology. He was evaluated by Dr. Bey who ordered blood work and stool studies per patient's sister. She has not been notified of blood work results and haven't been able to collect stool sample yet. Patient continues to lose weight, has lost 5 more lbs since August. Sister reports he is still eating and drinking protein shakes. Blood pressure is low today. He had quite large, loose stools over the weekend. No vomiting and they are pushing fluids. He doesn't seem to be fatigued, not sleeping more than usual, no issues with gait/balance, syncope or falling. Type 2 diabetes managed by sinker winder Dr. Duke. Blood sugars are well controlled with metformin 1000 mg daily. REVIEW OF SYSTEMS General: no fevers and no night sweats Respiratory: no cough, no wheezing, no shortness of breath Cardiovascular: no swelling and no decrease in exercise tolerance 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 blood sugar diagnostic (BLOOD GLUCOSE TEST) test strip Test blood sugar(s) 2 times daily. Dx: Type 2 DM - Uncontrolled E11.65 Insulin: No omeprazole (PRILOSEC) 40 mg capsule Take 1 capsule by mouth once daily. simvastatin (ZOCOR) 20 mg tablet Take 1 tablet by mouth daily at bedtime. nitroglycerin (NITROLINGUAL) 400 mcg/spray spray Dissolve 1 [place] under the tongue every 5 minutes as needed. oxybutynin ER (DITROPAN XL) 10 mg 24 hr tablet Take 1 tablet by mouth once daily. spironolactone (ALDACTONE) 25 mg tablet Take 0.5 tablets by mouth once daily. carvedilol (COREG) 12.5 mg tablet Take 1 tablet by mouth twice daily. metFORMIN (GLUCOPHAGE) 500 mg tablet Take 1 tablet by mouth twice daily with meals. fluticasone (FLONASE) 50 mcg/actuation nasal spray Use 2 Sprays in each nostril once daily. Rinse mouth after use. Lactobacillus rhamnosus GG (CULTURELLE ORAL) Take 1 capsule by mouth once daily. cholecalciferol, vitamin D3, (VITAMIN D3 ORAL) Take by mouth. glucosamine/chondr victoria A sod (OSTEO BI-FLEX ORAL) Take by mouth once daily. Lancets lancets Test blood sugar(s) two times daily. Dx: E11.9. Insulin: No aspirin, enteric coated (ECOTRIN LOW STRENGTH) 81 mg EC tablet Take 1 tablet by mouth once daily. FAMILY HISTORY Problem Relation Age of Onset Coronary Artery Disease Father Heart Father MS AT AGE 63 COPD Sister Asthma Sister No Known Problems Maternal Grandmother No Known Problems Maternal Grandfather No Known Problems Paternal Grandmother No Known Problems Paternal Grandfather Colon Cancer Other Cancer Other LUNG Diabetes Other Emphysema Other Social History Tobacco Use Smoking status: Never Smokeless tobacco: Never Vaping Use Vaping Use: Never used Substance Use Topics Alcohol use: No Drug use: No PHYSICAL EXAM BP 98/64 Pulse 80 Resp 14 Wt 58.1 kg (128 lb) BMI 19.04 kg/m General Appearance: well appearing, in no acute distress, alert Pysch: mood and affect flat and restricted, non-verbal, cooperative, follows simple directions Lungs: Lungs clear to auscultation. No wheezing, rhonchi, rales. Heart: RRR without murmur, gallop, or rubs. No ectopy Health maintenance reviewed with patient: SHINGRIX VACCINE(1 of 2) Never done PNEUMOCOCCAL(2 - PPSV23 or PCV20) due on 04/20/2015 DTAP,TDAP,TD(3 - Td or Tdap) due on 10/30/2019 COVID-19 VACCINE(3 - Booster for Pfizer series) due on 07/31/2020 DEPRESSION ASSESSMENT Never done INFLUENZA(1) due on 10/27/2021 DILATED RETINAL EXAM due on 02/17/2022 HBA1C due on 05/23/2022 DIABETIC FOOT EXAM due on 05/30/2022 ANNUAL PCP TEAM CHRONIC DISEASE VISIT due on 09/01/2022 BP CONTROLLED (<130/80) due on 10/17/2022 URINE ALBUMIN:CREATININE RATIO due on 11/23/2022 LDL CHOLESTEROL due on 11/23/2022 PROSTATE CANCER SCREENING DISCUSSION due on 05/05/2023 HEPATITIS C SCREENING Completed HIV SCREENING Completed COLORECTAL CANCER SCREENING Discontinued DATA REVIEWED: Most recent labs ASSESSMENT/PLAN: 1. Weight loss, abnormal - ICD9: 783.21, ICD10: R63.4 (primary diagnosis) Continues to lose weight despite good PO intake and protein shakes. Labs unremarkable. Further testing and follow-ups per GI 2. Hypotension, unspecified hypotension type - ICD9: 458.9, ICD10: I95.9 Quite a few loose stools over the weekend, possibly from mild dehydration. Appears to be asymptomatic. Continue to push fluids. Check labs: - BASIC METABOLIC PNL - CBC Monitor BP at home and notify alterations expert if persists 3. Type 2 diabetes mellitus with polyneuropathy (HCC) - ICD9: 250.60, 357.2, ICD10: E11.42 Controlled. Sister would like to stop Metformin and try a different medication due to concerns for possible side effects/long term acute care registered nurse issues - Continue current medications for now and discuss further with sinker winder 4. Dysphagia, unspecified type - ICD9: 787.20, ICD10: R13.10 See #1 5. Primary hypertension - ICD9: 401.9, ICD10: I10 - good control Continue current medications per cardiology 6. Cardiomyopathy, unspecified type (HCC) - ICD9: 425.4, ICD10: I42.9 Stable 7. Encounter for immunization - ICD9: V03.89, ICD10: Z23 - INFLUENZA VACCINE QUADRIVALENT 6 MO - 64 YRS IM - [email or web address] COVID-19 BIVALENT BOOSTER VACCINE, AGE 12+ YR Prescription instructions reviewed with patient as applicable. Potential red flag symptoms discussed with the patient. Reviewed appropriate action plan to take if red flag symptoms occur. Patient agreeable to treatment plan. Paulina West APRN.CNP documented in this encounterP[facility]08-22-2022 History of Present illness Narrative* Dl Wheeler MD - 10/17/2021 4:21 PM EDT Images from the original note were not included. Dl Wheeler MD Interventional Cardiology [facility] [address], [place] [address] [phone] Chief Complaint Patient presents with: Follow Up HISTORY OF PRESENT ILLNESS: Mr. Ortiz is a 66 year old male seen in my office today for assessment management of his cardiac condition history of hypertension with dilated cardiomyopathy ejection fraction 47% Denies any chest pain or shortness of breath Tolerating medication very well Cardiac Risk Factors Hyperlipidemia long-term Hypertension. 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 Unspecified essential hypertension 10/10/2004 PAST SURGICAL HISTORY Procedure Laterality Date LAPAROSCOPY SURG RPR INITIAL INGUINAL HERNIA Left 07/20/2016 plus umbilica hernia repair FAMILY HISTORY Problem Relation Age of Onset Coronary Artery Disease Father Heart Father MS AT AGE 63 COPD Sister Asthma Sister No Known Problems Maternal Grandmother No Known Problems Maternal Grandfather No Known Problems Paternal Grandmother No Known Problems Paternal Grandfather Colon Cancer Other Cancer Other LUNG Diabetes Other Emphysema Other Social History Tobacco Use Smoking status: Never Smokeless tobacco: Never Vaping Use Vaping Use: Never used Substance Use Topics Alcohol use: No Drug use: No ALLERGIES Allergen Reactions Macrobid [Nitrofura* Rash Cefdinir Rash Medications: Current Outpatient Medications Medication Sig Dispense Refill cyanocobalamin (VITAMIN B-12) 1,000 mcg tab Take 1 tablet by mouth once daily. blood sugar diagnostic (BLOOD GLUCOSE TEST) test strip Test blood sugar(s) 2 times daily. Dx: Type 2 DM - Uncontrolled E11.65 Insulin: No 200 Strip 3 omeprazole (PRILOSEC) 40 mg capsule Take 1 capsule by mouth once daily. 90 capsule 1 simvastatin (ZOCOR) 20 mg tablet Take 1 tablet by mouth daily at bedtime. 90 tablet 1 nitroglycerin (NITROLINGUAL) 400 mcg/spray spray Dissolve 1 [place] under the tongue every 5 minutes as needed. 12 g 1 oxybutynin ER (DITROPAN XL) 10 mg 24 hr tablet Take 1 tablet by mouth once daily. 90 tablet 3 spironolactone (ALDACTONE) 25 mg tablet Take 0.5 tablets by mouth once daily. 45 tablet 3 carvedilol (COREG) 12.5 mg tablet Take 1 tablet by mouth twice daily. 180 tablet 3 metFORMIN (GLUCOPHAGE) 500 mg tablet Take 1 tablet by mouth twice daily with meals. 180 tablet 3 fluticasone (FLONASE) 50 mcg/actuation nasal spray Use 2 Sprays in each nostril once daily. Rinse mouth after use. 1 Each 11 Lactobacillus rhamnosus GG (CULTURELLE ORAL) Take 1 capsule by mouth once daily. cholecalciferol, vitamin D3, (VITAMIN D3 ORAL) Take by mouth. glucosamine/chondr victoria A sod (OSTEO BI-FLEX ORAL) Take by mouth once daily. Lancets lancets Test blood sugar(s) two times daily. Dx: E11.9. Insulin: No 100 Each 11 aspirin, enteric coated (ECOTRIN LOW STRENGTH) 81 mg EC tablet Take 1 tablet by mouth once daily. 0 No current facility-administered medications for this visit. Review of Systems Constitutional: Negative for chills, diaphoresis, fever, malaise/fatigue and weight loss. HENT: Negative for congestion, ear discharge, ear pain, hearing loss, nosebleeds, sinus pain, sore throat and tinnitus. Eyes: Negative for blurred vision, double vision, photophobia, pain, discharge and redness. Respiratory: Negative for cough, hemoptysis, sputum production, shortness of breath, wheezing and stridor. Cardiovascular: Negative for chest pain, palpitations, orthopnea, claudication, leg swelling and PND. Gastrointestinal: Negative for abdominal pain, blood in stool, constipation, diarrhea, heartburn, melena, nausea and vomiting. Genitourinary: Negative for dysuria, flank pain, frequency, hematuria and urgency. Musculoskeletal: Negative for back pain, falls, joint pain, myalgias and neck pain. Skin: Negative for itching and rash. Neurological: Negative for dizziness, tingling, tremors, sensory change, speech change, focal weakness, seizures, loss of consciousness, weakness and headaches. Endo/Heme/Allergies: Negative for environmental allergies and polydipsia. Does not bruise/bleed easily. Psychiatric/Behavioral: Negative for depression, hallucinations, memory loss, substance abuse and suicidal ideas. The patient is not nervous/anxious and does not have insomnia. Physical Examination: Vitals:BP 122/58 Pulse 78 Resp 30 Wt 133 lb 3.2 oz (60.4kg) BP w/Orthostatic Vitals Date and Time Orthostatic BP Orthostatic Pulse BP Pulse BP Position BP Site BP Cuff Size 10/17/211511 -- -- 122/58 78 Sitting Right Arm Regular Adult Peak Flow Date and Time PF Resp 10/17/21 151 -- 30 Last 2 Encounter Wt Readings: Date: Wt: 10/17/2021 60.4 kg (133 lb 3.2 oz) 09/01/2021 61.7 kg (136 lb) Physical Exam Constitutional: General: He is not in acute distress. Appearance: He is not diaphoretic. HENT: Head: Normocephalic and atraumatic. Right Ear: External ear normal. Left Ear: External ear normal. Nose: Nose normal. Mouth/Throat: Pharynx: Oropharynx is clear. Eyes: General: Right eye: No discharge. Left eye: No discharge. Conjunctiva/sclera: Conjunctivae normal. Pupils: Pupils are equal, round, and reactive to light. Cardiovascular: Rate and Rhythm: Normal rate and regular rhythm. Heart sounds: Normal heart sounds, S1 normal and S2 normal. No murmur heard. No friction rub. No gallop. No S3 or S4 sounds. Pulmonary: Effort: Pulmonary effort is normal. No respiratory distress. Breath sounds: Normal breath sounds. No wheezing or rales. Chest: Chest wall: No tenderness. Musculoskeletal: General: Normal range of motion. Cervical back: Normal range of motion and neck supple. Skin: General: Skin is warm and dry. Neurological: Mental Status: He is alert and oriented to person, place, and time. Psychiatric: Mood and Affect: Mood normal. Thought Content: Thought content normal. Judgment: Judgment normal. Pertinent Labs: CBC: Hemoglobin (g/dL) Date Value 09/01/2021 14.9 11/18/2020 15.7 Hematocrit (%) Date Value 09/01/2021 48.1 11/18/2020 51.0 WBC (k/uL) Date Value 09/01/2021 7.45 11/18/2020 7.56 Platelet Count (k/uL) Date Value 09/01/2021 260 11/18/2020 246 BMP: Glucose (mg/dL) Date Value 09/01/2021 107 11/18/2020 112 Potassium (mmol/L) Date Value 09/01/2021 4.3 11/18/2020 4.1 Sodium (mmol/L) Date Value 09/01/2021 139 11/18/2020 139 Chloride (mmol/L) Date Value 09/01/2021 99 11/18/2020 101 CO2 (mmol/L) Date Value 09/01/2021 28 11/18/2020 26 Creatinine (mg/dL) Date Value 09/01/2021 0.97 11/18/2020 0.99 BUN (mg/dL) Date Value 09/01/2021 22 11/18/2020 17 Anion Gap (mmol/L) Date Value 09/01/2021 12 11/18/2020 12 Calcium (mg/dL) Date Value 11/18/2020 9.8 Calcium, Total (mg/dL) Date Value 09/01/2021 10.1 INR: Lipid Profile: Cholesterol, Total Date Value Ref Range Status 11/18/2020 158 <200 mg/dL Final Comment: <200 mg/dL, Desirable 200-239 mg/dL, Borderline high >239 mg/dL, High HDL Cholesterol Date Value Ref Range Status 11/18/2020 38 (L) >39 mg/dL Final Comment: 40-59 mg/dL, Acceptable >59 mg/dL, High: Negative risk factor for coronary heart disease <40 mg/dL, Low: Positive risk factor for coronary heart disease LDL Cholesterol Date Value Ref Range Status 11/18/2020 85 <100 mg/dL Final Comment: <100 mg/dL, Optimal 100-129 mg/dL, Near optimal/above optimal 130-159 mg/dL, Borderline high 160-189 mg/dL, High >189 mg/dL, Very high Secondary prevention optimal LDL Cholesterol levels are recommended to be < 70 mg/dL Triglyceride Date Value Ref Range Status 11/18/2020 174 (H) <150 mg/dL Final Comment: <150 mg/dL, Normal 150-199 mg/dL, Borderline high 200-499 mg/dL, High >499 mg/dL, Very high Hemoglobin A1C: No results found for: HGBA1C TSH: No results found for: TSHREFL Prior Cardiac Testing none Assessment and Plan: 66 years old gentleman with dilated cardiomyopathy no evidence of congestive heart failure clinically we will continue with the same medical treatment Follow-up Follow up plannin months Electronically signed by Dl Wheeler MD on October 17, 2021, 4:21 PM The above note was partially created using a dictation recognition software. A reasonable attempt has been made to correct any errors. documented in this encounterP[facility]07-07-2022 History of Present illness Narrative* Nehemiah Thomas MD - 09/01/2021 10:57 AM EDT This note was created using Tiv[employer]. Subjective Inna Ortiz is a 66 year old male. Family was concerned with weight loss. ROS was per family members. He has lost 14-16 pounds from last year's weight. He ate 3 meals per day. Endocrinology recommended protein shakes. He was still losing weight. Review of Systems Constitutional: Positive for unexpected weight change. Negative for appetite change and fever. HENT: Positive for trouble swallowing. Dysphagia to liquids. Respiratory: Negative. Gastrointestinal: Positive for abdominal distention. Negative for blood in stool, constipation, diarrhea, nausea and vomiting. Genitourinary: Negative for dysuria. Musculoskeletal: Negative. Skin: Positive for rash. ACTIVE PROBLEM LIST Late Effects of Cerebrovascular Disease Primary Hypertension Delay in Development Hyperlipidemia Type 2 Diabetes Mellitus With Polyneuropathy (Hcc) Cardiomyopathy (Hcc) Atherosclerosis of [place] Coronary Artery of [place] Heart With Angina Pectoris (Hcc) Overactive Bladder Acid Indigestion Gait Abnormality Urinary Incontinence Current Outpatient Medications Medication Sig cyanocobalamin, vitamin B-12, (VITAMIN B-12 ORAL) Take by mouth. blood sugar diagnostic (BLOOD GLUCOSE TEST) test strip Test blood sugar(s) 2 times daily. Dx: Type 2 DM - Uncontrolled E11.65 Insulin: No omeprazole (PRILOSEC) 40 mg capsule Take 1 capsule by mouth once daily. simvastatin (ZOCOR) 20 mg tablet Take 1 tablet by mouth daily at bedtime. nitroglycerin (NITROLINGUAL) 400 mcg/spray spray Dissolve 1 [place] under the tongue every 5 minutes as needed. oxybutynin ER (DITROPAN XL) 10 mg 24 hr tablet Take 1 tablet by mouth once daily. spironolactone (ALDACTONE) 25 mg tablet Take 0.5 tablets by mouth once daily. carvedilol (COREG) 12.5 mg tablet Take 1 tablet by mouth twice daily. metFORMIN (GLUCOPHAGE) 500 mg tablet Take 1 tablet by mouth twice daily with meals. fluticasone (FLONASE) 50 mcg/actuation nasal spray Use 2 Sprays in each nostril once daily. Rinse mouth after use. Lactobacillus rhamnosus GG (CULTURELLE ORAL) Take 1 capsule by mouth once daily. cholecalciferol, vitamin D3, (VITAMIN D3 ORAL) Take by mouth. glucosamine/chondr [place] A sod (OSTEO BI-FLEX ORAL) Take by mouth once daily. Lancets lancets Test blood sugar(s) two times daily. Dx: E11.9. Insulin: No aspirin, enteric coated (ECOTRIN LOW STRENGTH) 81 mg EC tablet Take 1 tablet by mouth once daily. Hussein, Zingiber officinalis, (UHSSEIN EXTRACT) 250 mg cap Take 1 capsule by mouth twice daily. No current facility-administered medications for this visit. Objective BP 110/64 (BP Site: Left Arm, BP Position: Sitting, BP Cuff Size: Regular Adult) Pulse 80 Temp 37 C (98.6 F) (Temporal Artery) Resp 16 Ht 174.6 cm (5' 8.75 ) Wt 61.7 kg (136 lb) BMI 20.23kg/m Physical Exam Constitutional: Appearance: He is underweight. He is not ill-appearing. HENT: Head: Normocephalic. Mouth/Throat: Mouth: Mucous membranes are moist. Pharynx: Oropharynx is clear. Eyes: General: No scleral icterus. Cardiovascular: Rate and Rhythm: Normal rate and regular rhythm. Pulmonary: Breath sounds: Normal breath sounds. Chest: Breasts: Right: No axillary adenopathy or supraclavicular adenopathy. Left: No axillary adenopathy or supraclavicular adenopathy. Abdominal: General: Bowel sounds are normal. Palpations: Abdomen is soft. There is no mass. Tenderness: There is no abdominal tenderness. Musculoskeletal: Right lower leg: No edema. Left lower leg: No edema. Lymphadenopathy: Cervical: No cervical adenopathy. Upper Body: Right upper body: No supraclavicular or axillary adenopathy. Left upper body: No supraclavicular or axillary adenopathy. Lower Body: No right inguinal adenopathy. No left inguinal adenopathy. Neurological: General: No focal deficit present. Mental Status: He is alert. Psychiatric: Speech: He is noncommunicative. Assessment and Plan 1. Weight loss, abnormal - ICD9: 783.21, ICD10: R63.4 (primary diagnosis) - CONSULT TO GASTROENTEROLOGY - CBC - COMP METABOLIC PANEL - TSH BLD - URINALYSIS, WITH MICROSCOPIC 2. Dysphagia, unspecified type - ICD9: 787.20, ICD10: R13.10 - CONSULT TO GASTROENTEROLOGY - CBC - COMP METABOLIC PANEL - TSH BLD 3. Proteinuria, unspecified type - ICD9: 791.0, ICD10: R80.9 Recheck. Nehemiah Thomas MD documented in this encounterP[facility]07-05-2022 Miscellaneous Notes* Telephone Encounter - Himanshu Horan Ma - 08/30/2021 1:28 PM EDT Patient's sister notified, verbalized understanding. Himanshu Horan Ma * Telephone Encounter - Neehmiah Thomas MD - 08/30/2021 1:02 PM EDT No labs needed at this time. Recent lab from [facility] are on file. * Telephone Encounter - Heather Coleman LPN - 08/30/2021 9:41 AM EDT Angie/sister stopped into office, concerned about weight lose 22 lbs since 04/18/2021. Scheduled tosee Dr. Thomas, 09/01/2021, asking if he needs to have labs done prior to appt. Please notify family. Heather Coleman LPN documented in this encounterPike [facility] Hospital06-15-2022 Miscellaneous Notes* Telephone Encounter - Kiley Newton - 08/10/2021 12:03 PM EDT Patient has been identified by name and date of : Yes Pending Prescriptions Disp Refills BLOOD GLUCOSE TEST STRIPS 200 Strip 3 Sig: Test blood sugar(s) 2 times daily. Dx: Type 2 DM - Uncontrolled E11.65 Insulin: No CARA: No RX INSTRUCTIONS: Patient is out of test strips, please send today. Patient aware RX will be sent to pharmacy. No need to notify patient. Kiley Newton documented in this encounterPike [facility] Hospital06-08-2022 History of Present illness Narrative* Griselda Varela, PT - 08/03/2021 10:18 AM EDT Episode Visit Count: 9 Therapist That Will Oversee The Plan Of Care: Griselda Varela Start of Care Date: 07/04/21 Onset Date: 04/28/21 Plan of Care Certification Date: 07/04/21 Next Certification Due Date: 08/15/21 Patient Identified by Name and Date of : Yes REHABILITATION AND SPORTS THERAPY PHYSICAL THERAPY DISCONTINUANCE OF CARE PLAN OF CARE UPDATE: Assessment: Inna Ortiz is discontinued from Physical Therapy services due to maximal benefit..Patient was seen for 9 visits from Start of Care Date: 07/04/21 to 08/03/2021 and treatment included:Therapeutic exercise, Self-usp management and Patient/Family/Caregiver Education. Goals for Episode of Care: created on 07/04/21 through 08/15/21 updated 08/03/21 Improve endurance to allow no dragging of feet per sister report partially achieved [place] in home exercise program./ achieved Patient will increase flexibility of hip flexors , hamstrings by 5-10 degrees to improve ability to maintain proper posture and improve mechanics./ partially achieved Increase ROM of hip extension for improved upright posture / partially achieved Patient Goals: Strengthen legs, get walking better/ partially achieved SUBJECTIVE: Patient Reason for Visit: Pt's sister states that he is doing ok but still stumbles at times. Feels maybe that his knee are going straighter but still bends over with walking at times. Pain: Pain Pain Level: 0 PROMIS Scales Higher is Better 07/01/2021 07/25/2021 07/29/2021 Phys Func - Score 24 (severe dysfunction) - 24 (severe dysfunction) Phys Func - Percentile 0 % - 0 % Social Roles - Score 34 (moderate dysfunction) - 42 (mild dysfunction) Social Role - Percentile 5 % - 21 % GH Physical - Score - 32.4 (Poor) - GH Physical - Percentile - 4 % - GH Mental - Score - 38.8 (Fair) - GH Mental - Percentile - 13 % - Self-Eff Symptom - Score 34 (Low) - 32 (Low) Self-Eff Symptom - Percentile 5 % - 4 % T-scores: mean of general population = 50. 5 points is clinically meaningfully difference Percentiles provide an indication of how the patient's score ranks in relation to the general population. Higher percentile rankings indicate better function/quality of life. 50th percentile is the average of the general population and indicates half of respondents had a worse score. Lower is Better 07/01/2021 07/29/2021 Fatigue - Score 72 (severe) 62 (moderate) Fatigue - Percentile 1 % 12 % T-scores: mean of general population = 50. 5 points is clinically meaningfully difference Percentiles provide an indication of how the patient's score ranks in relation to the general population. Higher percentile rankings indicate better function/quality of life. 50th percentile is the average of the general population and indicates half of respondents had a worse score. OBJECTIVE MEASURES WITH LEVEL OF FUNCTION: Cognition Cognition: Communication Deficits Communication Deficits: Non-verbal Posture / Alignment Posture: Increased lumbar lordosis Hip Observations R Hip Presents with: (tightness in hip flexors) L Hip Presents with: (tightness in hip flexors) LE AROM R Hip Extension: -5 Degrees R Knee Extension: 0 Degrees L Hip Extension: -5 Degrees L Knee Extension: 0 Degrees LE Flexibility R Hamstring Flexibility: 40 L Hamstring Flexibility: 35 Mobility Supine To Sit: Independent Sit to Supine: Independent Sit To Stand: Independent Gait Gait Device: None Gait Deviations: Right Lower Extremity;Left Lower Extremity Gait Deviations Right Lower Extremity: Foot clearance decreased;Heel strike during initial stance decreased;Knee flexion during stance increased Gait Deviations Left Lower Extremity: Knee flexion during stance increased General Deviations/Observations: Lateral sway increased (left LE with some IR , trunk shift) TREATMENT: Therapeutic Exercise: 1: sidelying hip flexor stretch manual to tolerance x3with 30 sec hold (used pillow between knees to allow pt to relax more) 2: supine lying with emphasis on knee extension. Excessive lumbar lordosis noted from hip flexor tightness x5 min and 2 min x1 3: passive hamstring stretch brief B 15 sec x3 supine and sitting 4: marches sitting 2x10 5: sit to stand with hand hold and arms up overhead assisted to improve upright standing [id number] 7: ambulation 20'x2 for upright posture 8: SAQ 2x10 with cues 9: review of important exs to perform at home Skilled Intervention: Skilled judgment was provided in selection of appropriate interventions. Correct performance of therapeutic exercises was facilitated with verbal, visual and tactile cuing. Home Exercise Program Assigned: 1: sit to stand with arms up 2: lying flat supine 3: standing reaching up with arms Current Home Program: [facility] Therapeutic Exercise Treatment Minutes: 30 Total Treatment Time Minutes (timed/untimed): 30 Griselda Varela PT [facility] Miscellaneous Notes* Telephone Encounter - Himanshu Horan Ma - 08/02/2021 8:53 AM EDT SALVADOR: 05/30/2021 Last refill: 05/02/2021 QTY: 90 Refills: 0 documented [facility] Miscellaneous Notes* Telephone Encounter - Kristen Ramirez LPN - 08/01/2021 9:58 AM EDT Called patient, Angie answered phone and made aware of results. Per Angie patient acting as if patient has UTI. Let her know results again and Angie reports again that patient acting as if he has a UTI. Let Angie know she can make appointment with PCP if he is not feeling well. Per Angie she will see how he feels in next few days. Kristen Ramirez LPN * Telephone Encounter - Kristen Ramirez LPN - 08/01/2021 9:55 AM EDT ----- Message from Huy Rodríguez PA-C sent at 08/01/2021 9:38 AM EDT ----- No infection in the urine Huy Rodríguez MPAS, MTSUN documented in [facility] encounterP[facility]06[facility] History of Present illness Narrative* Griselda Mercadorison, PT - 08/01/2021 9:23 AM EDT Episode Visit Count: 8 Therapist That Will Oversee The Plan Of Care: Griselda Varela Start of Care Date: 07/04/21 Onset Date: 04/28/21 Plan of Care Certification Date: 07/04/21 Next Certification Due Date: 08/15/21 Patient Identified by Name and Date of : Yes REHABILITATION AND SPORTS THERAPY PHYSICAL THERAPY TREATMENT NOTE ASSESSMENT: Inna Ortiz tolerated the session with no issues. He demonstrated improvements in knee extension with gait. At times left hip with IR with gait but ER in supine. Knee extension in supine full . The patient will continue to benefit from ongoing skilled physical therapy to progress toward set goals. PLAN FOR NEXT VISIT: Continue to work on exs per POC SUBJECTIVE: Patient Reason for Visit: Angie Pt''s sister states that she feels that Jasmyn is still not feeling well. decreaed appetite, not doing his normal things etc. Had urine sample taken and told was negative for UTI, Did not do alot of walking over the weekend Pain: Pain Pain Level: 0 Post Treatment Pain Post Treatment Pain Level: 0 OBJECTIVE MEASURES WITH LEVEL OF FUNCTION: Cognition Cognition: Communication Deficits Communication Deficits: Non-verbal Pt with left hip IR at times with gait. Upright posture with standing good at times but difficult having pt maintain that position TREATMENT: Therapeutic Exercise: 1: sidelying hip flexor stretch manual to tolerance x3with 30 sec hold (used pillow between knees to allow pt to relax more) 2: supine lying with emphasis on knee extension. Excessive lumbar lordosis noted from hip flexor tightness x5 min and 2 min x1 3: passive hamstring stretch brief B 15 sec x3 supine and sitting 4: marches sitting 2x10 5: sit to stand with hand hold and arms up overhead assisted to improve upright standing [id number] 6: standing finger taps to pictures on wall for upright standing 1x15 7: ambulation 20'x2 for upright posture 8: SAQ 2x10 with cues Skilled Intervention: Patient was educated in proper exercise technique and purpose for exercises. Reviewed and educated patient on additions/changes for home exercise program . Home Exercise Program Assigned: 1: trial of pillow between knees for sleeping sidelying. Billing Therapeutic Exercise Treatment Minutes: 30 Total Treatment Time Minutes (timed/untimed): 30 Griselda Varela PT [facility] History of Present illness Narrative* Griselda Varela PT - 07/27/2021 9:31 AM EDT Episode Visit Count: 6 Therapist That Will Oversee The Plan Of Care: Griselda Varela Start of Care Date: 07/04/21 Onset Date: 04/28/21 Plan of Care Certification Date: 07/04/21 Next Certification Due Date: 08/15/21 Patient Identified by Name and Date of : Yes REHABILITATION AND SPORTS THERAPY PHYSICAL THERAPY TREATMENT NOTE ASSESSMENT: Inna Ortiz tolerated the session with no issues. He demonstrated improvements in hip extension ROM . The patient will continue to benefit from ongoing skilled physical therapy to progress toward set goals. PLAN FOR NEXT VISIT: will continue with SAQ which works well for quad activation as well as sit to stand SUBJECTIVE: Patient Reason for Visit: Pt's sister states that he seems to be standing a bit straighter. Pain: Pain Pain Level: 0 Post Treatment Pain Post Treatment Pain Level: No Change OBJECTIVE MEASURES WITH LEVEL OF FUNCTION: Cognition Cognition: Communication Deficits Communication Deficits: Non-verbal Pt with right hip extension to neutral and left to approx 5 degrees passively TREATMENT: Therapeutic Exercise: 1: sidelying hip flexor stretch manual to tolerance x3with 30 sec hold 2: supine lying with emphasis on knee extension. Excessive lumbar lordosis noted from hip flexor tightness x5 min and 2 min x1 3: passive hamstring stretch brief B 15 sec x3 supine and sitting 4: marches sitting 5: sit to stand with hand hold and arms up overhead assisted to improve upright standing posture 3x10 6: standing finger taps to pictures on wall for upright standing 1x15 7: ambulation for ball find 20'x3 8: SAQ 2x10 with cues 9: LAQ 1x5 Skilled Intervention: Skilled judgment was provided in selection of appropriate interventions. Correct performance of therapeutic exercises was facilitated with verbal, visual and tactile cuing. Billing Therapeutic Exercise Treatment Minutes: 30 Total Treatment Time Minutes (timed/untimed): 30 Griselda Varela PT [facility] History of Present illness Narrative* Griselda Varela PT - 07/20/2021 9:32 AM EDT Episode Visit Count: 5 Therapist That Will Oversee The Plan Of Care: Griselda Varela Start of Care Date: 07/04/21 Onset Date: 04/28/21 Plan of Care Certification Date: 07/04/21 Next Certification Due Date: 08/15/21 Patient Identified by Name and Date of : Yes REHABILITATION AND SPORTS THERAPY PHYSICAL THERAPY TREATMENT NOTE ASSESSMENT: Inna Ortiz tolerated the session with no issues. He demonstrated improvements in relaxing for stretching and increased quad activation for SAQ . The patient will continue to benefit from ongoing skilled physical therapy to progress toward set goals. PLAN FOR NEXT VISIT: anna per POC SUBJECTIVE: Patient Reason for Visit: Pt accompanied by Angie his sister. She notes that his BP has been up a little and trying to keep blood sugar under control Pain: Pain Pain Level: 0 OBJECTIVE MEASURES WITH LEVEL OF FUNCTION: Cognition Cognition: Communication Deficits Communication Deficits: Non-verbal TREATMENT: Therapeutic Exercise: 1: sidelying hip flexor stretch manual to tolerance x3wiht 10-15 sec hold 2: supine lying with emphasis on knee extension. Excessive lumbar lordosis noted from hip flexor tightness x5 min and 2 min x1 3: passive hamstring stretch brief B 15 sec x3 4: marches sitting 5: sit to stand with hand hold and arms up overhead assisted to improve upright standing posture 3x10 6: standing finger taps to pictures on wall for upright standing 1x15 7: ambulation for ball find 20'x3 8: SAQ 2x10 with cues Skilled Intervention: Skilled judgment was provided in selection of appropriate interventions. Correct performance of therapeutic exercises was facilitated with verbal, visual and tactile cuing. Billing Therapeutic Exercise Treatment Minutes: 32 Total Treatment Time Minutes (timed/untimed): 32 Griselda Varela PT [facility] History of Present illness Narrative* Griselda Varela PT - 07/18/2021 9:26 AM EDT Episode Visit Count: 4 Therapist That Will Oversee The Plan Of Care: Griselda Varela Start of Care Date: 07/04/21 Onset Date: 04/28/21 Plan of Care Certification Date: 07/04/21 Next Certification Due Date: 08/15/21 Patient Identified by Name and Date of : Yes REHABILITATION AND SPORTS THERAPY PHYSICAL THERAPY TREATMENT NOTE ASSESSMENT: Inna Ortiz tolerated the session with no issues. He demonstrated improvements in advancing reps of exs and increased elevation and reaching with arms and upright standing . The patient will continue to benefit from ongoing skilled physical therapy to progress toward set goals. PLAN FOR NEXT VISIT: continue to facilitate upright standing and LE strenghtnening and hip flexor stretching SUBJECTIVE: Patient Reason for Visit: Pt accompanied by his sister and mother. No specific changes noted Pain: Pain Pain Level: 0 OBJECTIVE MEASURES WITH LEVEL OF FUNCTION: Cognition Cognition: Communication Deficits Communication Deficits: Non-verbal TREATMENT: Therapeutic Exercise: 1: sidelying hip flexor stretch manual to tolerance x3wiht 10-15 sec hold 2: supine lying with emphasis on knee extension. Excessive lumbar lordosis noted from hip flexor tightness x5 min and 2 min x1 3: passive hamstring stretch brief B 15 sec x3 4: marches sitting 2x10 5: sit to stand with hand hold and arms up overhead assisted to improve upright standing posture 3x10 6: ball kicks for knee extension 7: ambulation for ball find 20'x3 8: SAQ 1x10 with cues 9: upright standing at wall for knee extension and hip extension 4 picture touches x8 Skilled Intervention: Skilled judgment was provided in selection of appropriate interventions. Correct performance of therapeutic exercises was facilitated with verbal and visual cuing. Billing Therapeutic Exercise Treatment Minutes: 35 Total Treatment Time Minutes (timed/untimed): 35 Griselda Varela PT [facility]05[facility] History of Present illness Narrative* Griselda Varela PT - 07/14/2021 8:40 AM EDT Episode Visit Count: 3 Therapist That Will Oversee The Plan Of Care: Griselda Varela Start of Care Date: 07/04/21 Onset Date: 04/28/21 Plan of Care Certification Date: 07/04/21 Next Certification Due Date: 08/15/21 Patient Identified by Name and Date of : Yes REHABILITATION AND SPORTS THERAPY PHYSICAL THERAPY TREATMENT NOTE ASSESSMENT: Inna Ortiz tolerated the session with no issues. He demonstrated improvements in sit to stand and quad activation with SAQ. The patient will continue to benefit from ongoing skilled physical therapy to progress toward set goals. PLAN FOR NEXT VISIT: use playing cards on wall to facilitate upright standing posture SUBJECTIVE: Patient Reason for Visit: Pt accompanied by his sister Angie. No specific changes noted by her. Jasmyn north drags left leg at times. Pain: Pain Pain Level: 0 Post Treatment Pain Post Treatment Pain Level: No Change OBJECTIVE MEASURES WITH LEVEL OF FUNCTION: decreased lordosis of lumbar spine with supine lying TREATMENT: Therapeutic Exercise: 1: sidelying hip flexor stretch manual to tolerance x3wiht 10-15 sec hold 2: supine lying with emphasis on knee extension. Excessive lumbar lordosis noted from hip flexor tightness x5 min and 2 min x1 3: passive hamstring stretch brief B 4: marches sitting 5: sit to stand with hand hold and arms up overhead assisted to improve upright standing posture 2x10 6: ball kicks for knee extension 7: ambulation for ball find 20'x3 8: SAQ 1x10 with cues 9: upright standing at wall for knee extension and hip extension 4 picture touches x4 Skilled Intervention: Skilled judgment was provided in selection of appropriate interventions. Correct performance of therapeutic exercises was facilitated with verbal, visual and tactile cuing. Billing Therapeutic Exercise Treatment Minutes: 35 Total Treatment Time Minutes (timed/untimed): 35 Griselda Varela PT [facility] History of Present illness Narrative* Griselda Varela PT - 07/12/2021 10:34 AM EDT Episode Visit Count: 2 Therapist That Will Oversee The Plan Of Care: Griselda Varela Start of Care Date: 07/04/21 Onset Date: 04/28/21 Plan of Care Certification Date: 07/04/21 Next Certification Due Date: 08/15/21 Patient Identified by Name and Date of : Yes REHABILITATION AND SPORTS THERAPY PHYSICAL THERAPY TREATMENT NOTE ASSESSMENT: Inna Ortiz tolerated the session with no issues. He demonstrated improvements in following commands and performing more sit to stand and upright posture . The patient will continue to benefit from ongoing skilled physical therapy to progress toward set goals. PLAN FOR NEXT VISIT: continue with sit to stand. Work on reaching for cards on wall SUBJECTIVE: Patient Reason for Visit: Pt accompanied by sister Angie. She states that they have been trying to keep jasmyn more active and doing some exs. Pain: Pain Pain Level: 0 (non verbal appears to be painfree) Post Treatment Pain Post Treatment Pain Level: No Change OBJECTIVE MEASURES WITH LEVEL OF FUNCTION: full knee extension supine but increased lumbar lordosis and hip extension limitation TREATMENT: Therapeutic Exercise: 1: sidelying hip flexor stretch manual to tolerance x3wiht 10-15 sec hold 2: supine lying with emphasis on knee extension. Excessive lumbar lordosis noted from hip flexor tightness x5 min and 2 min x1 3: passive hamstring stretch brief B 4: marches sitting 5: sit to stand with hand hold and arms up overhead assisted to improve upright standing posture 2x10 6: ball kicks for knee extension 7: ambulation for ball find 20'x3 Skilled Intervention: Skilled judgment was provided in selection of appropriate interventions. Correct performance of therapeutic exercises was facilitated with verbal and visual cuing. Billing Therapeutic Exercise Treatment Minutes: 35 Total Treatment Time Minutes (timed/untimed): 35 Griselda Varela, PT [facility] History of Present illness Narrative* Griselda Varela PT - 07/04/2021 1:02 PM EDT Episode Visit Count: 1 Therapist That Will Oversee The Plan Of Care: Griselda Varela Start of Care Date: 07/04/21 Onset Date: 04/28/21 Plan of Care Certification Date: 07/04/21 Next Certification Due Date: 08/15/21 Patient Identified by Name and Date of : Yes REHABILITATION AND SPORTS THERAPY PHYSICAL THERAPY EVALUATION PLAN OF CARE: Assessment: Inna Ortiz presents with diagnosis of gait abnormality that interferes with walking in the community . He presents with impairments in flexibility, gait, independence in exercise andoverall function. . Prognosis for therapy is Poor due to: clinical presentation;multiple co- morbidities;chronic nature of impairments;learning impairments;poor understanding of deficits Pt is non verbal and only able to follow some commands He will benefit from skilled therapy services to meet thegoals established for this plan of care as noted below. Goals for Episode of Care: created on 07/04/21 through 08/15/21 Improve endurance to allow no dragging of feet per sister report [place] in home exercise program. Patient will increase flexibility of hip flexors , hamstrings by 5-10 degrees to improve ability tomaintain proper posture and improve mechanics. Increase ROM of hip extension for improved upright posture Patient Goals: Strengthen legs, get walking better Planned Interventions, Frequency, and Duration: Current Frequency: 2x/week Duration: 4 weeks Total Number of Visits Planned: 8 Planned Treatment Interventions: Therapeutic exercise (12040);Patient/Family/Caregiver Education;General Conditioning;Self-usp management (00341) PLAN FOR NEXT VISIT: Will work on ball kicks for knee extension active, sidelying hip flexor stretch or try supine with opposite knee to chest for hip flexor stretch . Patient demonstrates good understanding of plan of care and treatment. The above goals and plan of care were discussed and agreed upon by patient/family. SUBJECTIVE: Inna Ortiz is a 66 year old male seen today for Pt accompanied by his sister Angie, Pt with developmental delay. He does follow some commands but is non verbal . she relates that she is worried that he is not walking as well as he should and his knees are bent when walking. Has been very weak and was hospitalized with UTI and received PT at that time and then followed up with home PT unti May 24. She admits that pt does sit alot Patient Goals: Strengthen legs, get walking better Functional Limitations: walking in the community Prior Level of Function: Required assistance Required assistance with: ADL's Prior Functional Level Comments: was walking better per sister. 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 Recreation / Current Exercise: some marches in place and sit to stand Hobbies / Interests: sits and watches TV alot Home Environment Patient Lives With: Family (sister Angie) Assistance Available: 24 Hour Home Type: [place] Entry To Home: Stairs;With Rail Tub/Shower Type: with bars Equipment Owned: Shower Chair Intake Information: Prescription present Previous Treatment: (home therapy) Falls Interview: No positive findings with falls interview Pain: Pain Pain Level: 0 Pain Location: (points to stomach, unable to communicate) Post Treatment Pain Post Treatment Pain Level: No Change PROMIS Scales Higher is Better 11/23/2020 05/02/2021 07/01/2021 Phys Func - Score - - 24 (severe dysfunction) Phys Func - Percentile - - 0 % Social Roles - Score - - 34 (moderate dysfunction) Social Role - Percentile - - 5 % GH Physical - Score 34.9 (Poor) 29.6 (Poor) - GH Physical - Percentile 7 % 2 % - GH Mental - Score 45.8 (Good) 33.8 (Fair) - GH Mental - Percentile 34 % 5 % - Self-Eff Symptom - Score - - 34 (Low) Self-Eff Symptom - Percentile - - 5 % T-scores: mean of general population = 50. 5 points is clinically meaningfully difference Percentiles provide an indication of how the patient's score ranks in relation to the general population. Higher percentile rankings indicate better function/quality of life. 50th percentile is the average of the general population and indicates half of respondents had a worse score. Lower is Better 07/01/2021 Fatigue - Score 72 (severe) Fatigue - Percentile 1 % T-scores: mean of general population = 50. 5 points is clinically meaningfully difference Percentiles provide an indication of how the patient's score ranks in relation to the general population. Higher percentile rankings indicate better function/quality of life. 50th percentile is the average of the general population and indicates half of respondents had a worse score. OBJECTIVE MEASURES WITH LEVEL OF FUNCTION: Cognition Cognition: Communication Deficits Communication Deficits: Non-verbal Posture / Alignment Posture: Increased lumbar lordosis;Fair LE Observations: knees flexed with walking LE AROM R Hip Extension: -5 Degrees R Knee Extension: 0 Degrees R Knee Flexion: 130 Degrees L Hip Extension: -5 Degrees L Knee Extension: -12 Degrees L Knee Flexion: 128 Degrees LE Flexibility Flexibility: Hamstring Flexibility R Hamstring Flexibility: 40 L Hamstring Flexibility: 35 LE Strength Trunk Strength: 3/5 R LE Strength: unable to determine wtih MMT d/t no able to follow directions for this L LE Strength: unable to check with MMT Functional Strength Functional Strength: Able to complete sit to stand with use of hand and without struggle Mobility Rolling: Independent Supine To Sit: Independent Sit to Supine: Independent Sit To Stand: Independent Stand To Sit: Independent Bed To Chair: Independent Gait Weight Bearing Status: FWB Gait: Supervision Gait Device: None Gait Deviations: General Deviations General Deviations/Observations: Flexed trunk posture (knees flexed, step length slightly decreased) Gait Observation: Pt with decreased foot clearance with fatigue with walking Education: Education Learning Preferences: Demonstration;Performance;Unable to State Barriers: Cognitive Limitations;Communication Deficit Learning/educational needs: Home exercise program;Plan of Care Education Provided: Yes, see treatment interventions for education provided Education Provided To: Family Education Mode/Type: Explanation/Discussion Response to Education/Teach Back: States/Identifies TREATMENT: PT Treatment Interventions: Therapeutic Exercise Evaluation Therapeutic Exercise: 1: sidelying hip flexor stretch manual to tolerance x3wiht 10-15 sec hold 2: supine lying with emphasis on knee extension. Excessive lumbar lordosis noted from hip flexor tightness 3: passive hamstring stretch brief B 4: marches sitting 5: sit to stand with hand hold and arms up overhead assisted to improve upright standing posture 6: unable to do any quad or LAQ d/t pt not understanding Skilled Intervention: Patient was educated in proper exercise technique and purpose for exercises. Skilled judgment was provided in selection of appropriate interventions. Correct performance of therapeutic exercises was facilitated with verbal, visual and tactile cuing. Education to sister/ major account manager Angie Home Exercise Program Assigned: 1: lying supine legs out straight 1-2 times per day 2: pt up and walking regularly throughout the day 3: sit to stand as tolerated Billing * Evaluation High Complexity: 1 Unit Therapeutic Exercise Treatment Minutes: 30 Total Treatment Time Minutes (timed/untimed): 45 Griselda Varela PT [facility] Miscellaneous Notes* Telephone Encounter - Lilli Gramajo RN - 06/18/2021 8:15 AM EDT Patient has been identified by name and date of : Yes Patient's sister phones for refill(s): Pending Prescriptions Disp Refills NITROGLYCERIN 400 MCG/SPRAY TRANSLINGUAL Sig: Dissolve 1 [place] under the tongue every 5 minutes as needed. CARA: No Date of last office visit with pcp: 05/30/21 Date of last office visit in primary care: Last 2 Encounter Wt Readings: Date: Wt: 06/07/2021 65.8 kg (145 lb) 05/30/2021 66.2 kg (146 lb) Previous labs/tests for medication: Not applicable Please advise. Thank you. Lilli Gramajo RN documented [facility] this [facility] Miscellaneous Notes* Telephone Encounter - Kassy Almazan LPN - 06/13/2021 1:46 PM EDT Office notes,labs,demographics and copy of insurance cards faxed to Dr. Duke's office to call for appt. * Telephone Encounter - Nehemiah Thomas MD - 06/13/2021 10:59 AM EDT ASSESSMENT/PLAN: 1. Type 2 diabetes mellitus with polyneuropathy (HCC) - ICD9: 250.60, 357.2, ICD10: E11.[address] Himanshu Duke. - CONSULT TO ENDOCRINOLOGY Nehemiah Thomas MD documented in this encounterP[facility]04-[facility]22 History of Present illness Narrative* Huy Rodríguez PA-C - 06/07/2021 10:18 AM EDT Images from the original note were not included. [facility] [place] PATIENT INFO: Inna Ortiz 66 year old [facility]# [id number] PCP: Nehemiah Thomas MD CHIEF COMPLAINT: UTI HPI: This is a 66 year old male, who has Urinary Incontinence and recent UTI urine culture showed E Coliand is resistant to Cipro So I am switching the Rx to Bactrim, but d/t aldoctone, he will need to check K+ level on 01/13 ALLERGY: ALLERGIES Allergen Reactions Cefdinir Rash MEDICATIONS: Current Outpatient Medications Medication Sig Dispense Refill oxybutynin ER (DITROPAN XL) 10 mg 24 hr tablet Take 1 tablet by mouth once daily. 90 tablet 3 spironolactone (ALDACTONE) 25 mg tablet Take 0.5 tablets by mouth once daily. 45 tablet 3 omeprazole (PRILOSEC) 40 mg capsule Take 1 capsule by mouth once daily. 90 capsule 0 simvastatin (ZOCOR) 20 mg tablet Take 1 tablet by mouth daily at bedtime. 90 tablet 0 carvedilol (COREG) 12.5 mg tablet Take 1 tablet by mouth twice daily. 180 tablet 3 metFORMIN (GLUCOPHAGE) 500 mg tablet Take 1 tablet by mouth twice daily with meals. 180 tablet 3 fluticasone (FLONASE) 50 mcg/actuation nasal spray Use 2 Sprays in each nostril once daily. Rinse mouth after use. 1 Each 11 blood sugar diagnostic (BLOOD GLUCOSE TEST) test strip Test blood sugar(s) 2 times daily. Dx: Type 2 DM - Uncontrolled E11.65 Insulin: No 100 Strip 5 nitroglycerin (NITROLINGUAL) 400 mcg/spray spray Dissolve 1 [place] under the tongue every 5 minutes as needed. 1 Bottle 6 Hussein, Zingiber officinalis, (HUSSEIN EXTRACT) 250 mg cap Take 1 capsule by mouth twice daily. Lactobacillus rhamnosus GG (CULTURELLE ORAL) Take 1 capsule by mouth once daily. cholecalciferol, vitamin D3, (VITAMIN D3 ORAL) Take by mouth. glucosamine/chondr victoria A sod (OSTEO BI-FLEX ORAL) Take by mouth once daily. Lancets lancets Test blood sugar(s) two times daily. Dx: E11.9. Insulin: No 100 Each 11 aspirin, enteric coated (ECOTRIN LOW STRENGTH) 81 mg EC tablet Take 1 tablet by mouth once daily. 0 sulfamethoxazole-trimethoprim (BACTRIM DS) 800-160 mg per tablet Take 1 tablet by mouth twice dailyfor 10 days. 20 tablet 0 No current facility-administered medications for this visit. 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 No acute distress Endocrine: Positive: DM on Oral Agent - Glycosuria Physical Examination: Blood pressure 108/68, pulse 94, temperature 36.8 C (98.3 F), temperature source Temporal, resp. rate 16, height 180.3 cm (5' 11 ), weight 65.8 kg (145 lb), SpO2 100 %. General Appearance/ Constitutional: Well developed, well nourished, and in no apparent distress Results for orders placed or performed in visit on 05/30/21 UA DIP, URINE (POC) Result Value Ref Range GLUCOSE UA (POCT) Negative Negative mg/dL BILIRUBIN UA (POCT) Negative Negative KETONE UA (POCT) Negative Negative mg/dL SPECIFIC GRAVITY UA (POCT) 1.025 1.005 - 1.030 HEMOGLOBIN/BLOOD UA (POCT) Moderate (A) Negative PH UA (POCT) 5.5 4.5 - 8.0 PROTEIN UA (POCT) >=300 (A) Negative mg/dL UROBILINOGEN UA (POCT) 0.2 Normal E.U./dL NITRITE UA (POCT) Positive (A) Negative LEUKOCYTES UA (POCT) Small (A) Negative COLOR UA (POCT) Yellow CLARITY UA (POCT) Cloudy URINE CULTURE Specimen: URINE-MIDSTREAM CLEAN CATCH; Urine Random Result Value Ref Range Culture, Urine >=100,000 CFU/ml Escherichia coli (A) Susceptibility Escherichia coli - MINIMUM INHIBITORY CONCENTRATION(VITEK)* Ampicillin >=32 Resistant Ampicillin/Sulbact 16 Intermediate Cefazolin <=4 Susceptible Cefepime <=1 Susceptible Ceftriaxone <=1 Susceptible Ciprofloxacin >=4 Resistant Ertapenem <=0.5 Susceptible Gentamicin <=1 Susceptible Meropenem <=0.25 Susceptible Nitrofurantoin <=16 Susceptible Piperacillin/Tazobac <=4 Susceptible Tobramycin <=1 Susceptible Trimeth sulfameth <=20 Susceptible * CLSI breakpoints for therapy of uncomplicated UTIs due to E. coli, K. pneumoniae, and P. mirabilis were applied and may be used to predict the activity of oral agents (cefaclor, cefdinir, cefpodoxime, cefprozil, cefuroxime, cephalexin, loracarbef). UROLOGICAL DATA: Post Void Residual, Ultrasound: 0 ml IMPRESSION / PLAN: > History of Urinary Incontinence likely due to OAB and Diabetes (Glycosuria) > PVR - 0 ml > Ditropan UTI > Stop Cipro 500 mg > Start Bactrim X 10 days with K+ level check 06/13/21 Diabetes - Glycosuria [facility] [place], [place] * Kristen Ramirez LPN - 06/07/2021 10:06 AM EDT CC Post Void Residual HPI: Inna Ortiz is a 66 year old male. The patient is here now for an appointment with CISCO Goodman MT, PA-COV. Procedure: Explained procedure to patient and verbalizes understanding. Performed a PVR. Patient urinated and instructed to empty bladder as much as possible just prior to having PVR done using bladder ultrasound scanner. Results of scan: 0 mL The patient tolerated the procedure well. Plan: Appointment with Huy. documented in this encounterP[facility]04-04-[facility]22 History of Present illness Narrative* Nehemiah Thomas MD - 05/30/2021 2:02 PM EDT This note was created using Socialbombriter. Subjective Inna Ortiz is a 66 year old male. Sister was concerned about another urinary tract infection. Patient was non verbal, but had been noted to have increased urinary frequency, and debility. No fever or chills noted. Appetite may be down. No hematuria noted. Review of Systems Unable to perform ROS: Patient nonverbal ACTIVE PROBLEM LIST Late Effects of Cerebrovascular Disease Primary Hypertension Delay in Development Hyperlipidemia Type 2 Diabetes Mellitus With Polyneuropathy (Hcc) Cardiomyopathy (Hcc) Atherosclerosis of [place] Coronary Artery of [place] Heart With Angina Pectoris (Hcc) Overactive Bladder Acid Indigestion Gait Abnormality Current Outpatient Medications Medication Sig spironolactone (ALDACTONE) 25 mg tablet Take 0.5 tablets by mouth once daily. omeprazole (PRILOSEC) 40 mg capsule Take 1 capsule by mouth once daily. simvastatin (ZOCOR) 20 mg tablet Take 1 tablet by mouth daily at bedtime. carvedilol (COREG) 12.5 mg tablet Take 1 tablet by mouth twice daily. metFORMIN (GLUCOPHAGE) 500 mg tablet Take 1 tablet by mouth twice daily with meals. fluticasone (FLONASE) 50 mcg/actuation nasal spray Use 2 Sprays in each nostril once daily. Rinse mouth after use. blood sugar diagnostic (BLOOD GLUCOSE TEST) test strip Test blood sugar(s) 2 times daily. Dx: Type 2 DM - Uncontrolled E11.65 Insulin: No oxybutynin ER (DITROPAN XL) 10 mg 24 hr tablet Take 1 tablet by mouth once daily. nitroglycerin (NITROLINGUAL) 400 mcg/spray spray Dissolve 1 [place] under the tongue every 5 minutes as needed. Hussein, Zingiber officinalis, (HUSSEIN EXTRACT) 250 mg cap Take 1 capsule by mouth twice daily. Lactobacillus rhamnosus GG (CULTURELLE ORAL) Take 1 capsule by mouth once daily. cholecalciferol, vitamin D3, (VITAMIN D3 ORAL) Take by mouth. glucosamine/chondr victoria A sod (OSTEO BI-FLEX ORAL) Take by mouth once daily. Lancets lancets Test blood sugar(s) two times daily. Dx: E11.9. Insulin: No aspirin, enteric coated (ECOTRIN LOW STRENGTH) 81 mg EC tablet Take 1 tablet by mouth once daily. No current facility-administered medications for this visit. Objective BP 118/68 (BP Site: Right Arm, BP Position: Sitting, BP Cuff Size: Large Adult) Pulse 76 Temp 36.6 C (97.9 F) (Temporal Artery) Resp 24 Wt 66.2 kg (146 lb) BMI 21.56 kg/m Physical Exam Constitutional: General: He is not in acute distress. Appearance: He is not toxic-appearing or diaphoretic. Eyes: Conjunctiva/sclera: Conjunctivae normal. Cardiovascular: Rate and Rhythm: Normal rate and regular rhythm. Heart sounds: No murmur heard. No gallop. Pulmonary: Breath sounds: No wheezing or rales. Abdominal: General: There is no distension. Palpations: Abdomen is soft. Tenderness: There is no abdominal tenderness. Musculoskeletal: Right lower leg: No edema. Left lower leg: No edema. Neurological: Mental Status: He is alert. Gait: Gait abnormal. Psychiatric: Attention and Perception: He is inattentive. Mood and Affect: Affect is labile. Speech: He is noncommunicative. Behavior: Behavior is cooperative. Feet:Shoes and socks removed, No ulcers, calluses, normal distal pulses and sensitive to 10 gm monofilament in some toes. Flat feet. Component Latest Ref Rng & Units 05/20/2021 Glucose 74 - 99 mg/dL 127 (H) BUN 9 - 24 mg/dL 12 Creatinine 0.73 - 1.22 mg/dL 1.03 Sodium 136 - 144 mmol/L 140 Potassium 3.7 - 5.1 mmol/L 4.2 Chloride 97 - 105 mmol/L 103 CO2 22 - 30 mmol/L 28 Anion Gap 9 - 18 mmol/L 9 Calcium 8.5 - 10.2 mg/dL 9.7 eGFR >=60 mL/min/1.73m 81 Hemoglobin A1C 4.3 - 5.6 % 6.0 (H) Estimated Average Glucose mg/dL 126 Component Latest Ref Rng & Units 05/30/2021 GLUCOSE UA (POCT) Negative mg/dL Negative BILIRUBIN UA (POCT) Negative Negative KETONE UA (POCT) Negative mg/dL Negative SPECIFIC GRAVITY UA (POCT) 1.005 - 1.030 1.025 HEMOGLOBIN/BLOOD UA (POCT) Negative Moderate (A) PH UA (POCT) 4.5 - 8.0 5.5 PROTEIN UA (POCT) Negative mg/dL >=300 (A) UROBILINOGEN UA (POCT) Normal E.U./dL 0.2 NITRITE UA (POCT) Negative Positive (A) LEUKOCYTES UA (POCT) Negative Small (A) COLOR UA (POCT) Yellow CLARITY UA (POCT) Cloudy ASSESSMENT/PLAN: 1. Overactive bladder - ICD9: 596.51, ICD10: N32.81 (primary diagnosis) - CONSULT TO UROLOGY - UA DIP B/O - URINE CULTURE 2. Urinary incontinence, unspecified type - ICD9: 788.30, ICD10: R32 - OXYBUTYNIN CHLORIDE ER 10 MG TABLET,EXTENDED RELEASE 24 HR - CONSULT TO UROLOGY - UA DIP B/O - URINE CULTURE 3. Urinary frequency - ICD9: 788.41, ICD10: R35.0 - CONSULT TO UROLOGY - UA DIP B/O - URINE CULTURE 4. Type 2 diabetes mellitus with polyneuropathy (HCC) - ICD9: 250.60, 357.2, ICD10: E11.42 Controlled. - Continue current medications - COMP METABOLIC PANEL - HGB A1C - ALBUMIN/CREAT RATIO RND UR 5. Gait abnormality - ICD9: 781.2, ICD10: R26.9 Stable. 6. Other hyperlipidemia - ICD9: 272.4, ICD10: E78.49 - LIPID PANEL BASIC 7. Primary hypertension - ICD9: 401.9, ICD10: I10 - good control - Continue current medication(s) - Goal of BP <130/80 - CBC Nehemiah Thomas MD documented in this encounterP[facility]03-30-[facility]22 Miscellaneous Notes* Telephone Encounter - Sasha Saravia RN - 05/25/2021 11:55 AM EDT Elvia with [facility] calls to check on status of request for nurse visit to review medications. Notified Elvia that order was approved on 05/17/2021 and message was left on secure line. Elvia verbalizes understanding. Sasha Saravia RN documented in this encounterP[facility]02-24-2022 Miscellaneous Notes* Telephone Encounter - Heather Coleman LPN - 04/21/2021 11:41 AM EST PSS please call to schedule. Heather Coleman LPN * Telephone Encounter - Nehemiah Thomas MD - 04/20/2021 10:34 PM EST ASSESSMENT/PLAN: 1. Gait abnormality - ICD9: 781.2, ICD10: R26.9 - CONSULT TO ORTHOPAEDICS Nehemiah Thomas MD documented in this encounterP[facility]07-[facility]-2020 History of Past illness Narrative* Problem Noted Date Resolved Date Occult GI bleeding 08/28/2019 05/19/2020 Left inguinal hernia 05/16/2016 10/31/2016 Hypokalemia 06/30/2009 04/21/2014 Family history of diabetes mellitus 10/11/2004 04/12/2018 Obesity, unspecified 10/10/2004 10/31/2016 Other abnormal blood chemistry 10/10/2004 0 04/21/2014 Other convulsions 10/10/2004 04/21/2014 documented as of this encounter (statuses as of 05/25/2021) [facility] Narrative* Problem Noted Date Resolved Date Occult GI bleeding 08/28/2019 05/19/2020 Left inguinal hernia 05/16/2016 10/31/2016 Hypokalemia 06/30/2009 04/21/2014 Family history of diabetes mellitus 10/11/2004 04/12/2018 Obesity, unspecified 10/10/2004 10/31/2016 Other abnormal blood chemistry 10/10/2004 0 04/21/2014 Other convulsions 10/10/2004 04/21/2014 documented as of this encounter (statuses as of 05/30/2021) [facility] Narrative* Problem Noted Date Resolved Date Occult GI bleeding 08/28/2019 05/19/2020 Left inguinal hernia 05/16/2016 10/31/2016 Hypokalemia 06/30/2009 04/21/2014 Family history of diabetes mellitus 10/11/2004 04/12/2018 Obesity, unspecified 10/10/2004 10/31/2016 Other abnormal blood chemistry 10/10/2004 0 04/21/2014 Other convulsions 10/10/2004 04/21/2014 documented as of this encounter (statuses as of 06/07/2021) [facility] Narrative* Problem Noted Date Resolved Date Occult GI bleeding 08/28/2019 05/19/2020 Left inguinal hernia 05/16/2016 10/31/2016 Hypokalemia 06/30/2009 04/21/2014 Family history of diabetes mellitus 10/11/2004 04/12/2018 Obesity, unspecified 10/10/2004 10/31/2016 Other abnormal blood chemistry 10/10/2004 0 04/21/2014 Other convulsions 10/10/2004 04/21/2014 documented as of this encounter (statuses as of 06/07/2021) [facility] Narrative* Problem Noted Date Resolved Date Occult GI bleeding 08/28/2019 05/19/2020 Left inguinal hernia 05/16/2016 10/31/2016 Hypokalemia 06/30/2009 04/21/2014 Family history of diabetes mellitus 10/11/2004 04/12/2018 Obesity, unspecified 10/10/2004 10/31/2016 Other abnormal blood chemistry 10/10/2004 0 04/21/2014 Other convulsions 10/10/2004 04/21/2014 documented as of this encounter (statuses as of 06/08/2021) [facility] Narrative* Problem Noted Date Resolved Date Occult GI bleeding 08/28/2019 05/19/2020 Left inguinal hernia 05/16/2016 10/31/2016 Hypokalemia 06/30/2009 04/21/2014 Family history of diabetes mellitus 10/11/2004 04/12/2018 Obesity, unspecified 10/10/2004 10/31/2016 Other abnormal blood chemistry 10/10/2004 0 04/21/2014 Other convulsions 10/10/2004 04/21/2014 documented as of this encounter (statuses as of 06/08/2021) [facility] Narrative* Problem Noted Date Resolved Date Occult GI bleeding 08/28/2019 05/19/2020 Left inguinal hernia 05/16/2016 10/31/2016 Hypokalemia 06/30/2009 04/21/2014 Family history of diabetes mellitus 10/11/2004 04/12/2018 Obesity, unspecified 10/10/2004 10/31/2016 Other abnormal blood chemistry 10/10/2004 0 04/21/2014 Other convulsions 10/10/2004 04/21/2014 documented as of this encounter (statuses as of 06/13/2021) [facility] Narrative* Problem Noted Date Resolved Date Occult GI bleeding 08/28/2019 05/19/2020 Left inguinal hernia 05/16/2016 10/31/2016 Hypokalemia 06/30/2009 04/21/2014 Family history of diabetes mellitus 10/11/2004 04/12/2018 Obesity, unspecified 10/10/2004 10/31/2016 Other abnormal blood chemistry 10/10/2004 0 04/21/2014 Other convulsions 10/10/2004 04/21/2014 documented as of this encounter (statuses as of 06/14/2021) [facility] Narrative* Problem Noted Date Resolved Date Occult GI bleeding 08/28/2019 05/19/2020 Left inguinal hernia 05/16/2016 10/31/2016 Hypokalemia 06/30/2009 04/21/2014 Family history of diabetes mellitus 10/11/2004 04/12/2018 Obesity, unspecified 10/10/2004 10/31/2016 Other abnormal blood chemistry 10/10/2004 0 04/21/2014 Other convulsions 10/10/2004 04/21/2014 documented as of this encounter (statuses as of 06/14/2021) [facility] Narrative* Problem Noted Date Resolved Date Occult GI bleeding 08/28/2019 05/19/2020 Left inguinal hernia 05/16/2016 10/31/2016 Hypokalemia 06/30/2009 04/21/2014 Family history of diabetes mellitus 10/11/2004 04/12/2018 Obesity, unspecified 10/10/2004 10/31/2016 Other abnormal blood chemistry 10/10/2004 0 04/21/2014 Other convulsions 10/10/2004 04/21/2014 documented as of this encounter (statuses as of 06/14/2021) [facility] Narrative* Problem Noted Date Resolved Date Occult GI bleeding 08/28/2019 05/19/2020 Left inguinal hernia 05/16/2016 10/31/2016 Hypokalemia 06/30/2009 04/21/2014 Family history of diabetes mellitus 10/11/2004 04/12/2018 Obesity, unspecified 10/10/2004 10/31/2016 Other abnormal blood chemistry 10/10/2004 0 04/21/2014 Other convulsions 10/10/2004 04/21/2014 documented as of this encounter (statuses as of 06/20/2021) [facility] Narrative* Problem Noted Date Resolved Date Occult GI bleeding 08/28/2019 05/19/2020 Left inguinal hernia 05/16/2016 10/31/2016 Hypokalemia 06/30/2009 04/21/2014 Family history of diabetes mellitus 10/11/2004 04/12/2018 Obesity, unspecified 10/10/2004 10/31/2016 Other abnormal blood chemistry 10/10/2004 0 04/21/2014 Other convulsions 10/10/2004 04/21/2014 documented as of this encounter (statuses as of 07/04/2021) [facility] Narrative* Problem Noted Date Resolved Date Occult GI bleeding 08/28/2019 05/19/2020 Left inguinal hernia 05/16/2016 10/31/2016 Hypokalemia 06/30/2009 04/21/2014 Family history of diabetes mellitus 10/11/2004 04/12/2018 Obesity, unspecified 10/10/2004 10/31/2016 Other abnormal blood chemistry 10/10/2004 0 04/21/2014 Other convulsions 10/10/2004 04/21/2014 documented as of this encounter (statuses as of 07/12/2021) [facility]arrative* Problem Noted Date Resolved Date Occult GI bleeding 08/28/2019 05/19/2020 Left inguinal hernia 05/16/2016 10/31/2016 Hypokalemia 06/30/2009 04/21/2014 Family history of diabetes mellitus 10/11/2004 04/12/2018 Obesity, unspecified 10/10/2004 10/31/2016 Other abnormal blood chemistry 10/10/2004 0 04/21/2014 Other convulsions 10/10/2004 04/21/2014 documented as of this encounter (statuses as of 07/14/2021) [facility]arrative* Problem Noted Date Resolved Date Occult GI bleeding 08/28/2019 05/19/2020 Left inguinal hernia 05/16/2016 10/31/2016 Hypokalemia 06/30/2009 04/21/2014 Family history of diabetes mellitus 10/11/2004 04/12/2018 Obesity, unspecified 10/10/2004 10/31/2016 Other abnormal blood chemistry 10/10/2004 0 04/21/2014 Other convulsions 10/10/2004 04/21/2014 documented as of this encounter (statuses as of 07/18/2021) [facility]* Problem Noted Date Resolved Date Occult GI bleeding 08/28/2019 05/19/2020 Left inguinal hernia 05/16/2016 10/31/2016 Hypokalemia 06/30/2009 04/21/2014 Family history of diabetes mellitus 10/11/2004 04/12/2018 Obesity, unspecified 10/10/2004 10/31/2016 Other abnormal blood chemistry 10/10/2004 0 04/21/2014 Other convulsions 10/10/2004 04/21/2014 documented as of this encounter (statuses as of 07/20/2021) [facility]* Problem Noted Date Resolved Date Occult GI bleeding 08/28/2019 05/19/2020 Left inguinal hernia 05/16/2016 10/31/2016 Hypokalemia 06/30/2009 04/21/2014 Family history of diabetes mellitus 10/11/2004 04/12/2018 Obesity, unspecified 10/10/2004 10/31/2016 Other abnormal blood chemistry 10/10/2004 0 04/21/2014 Other convulsions 10/10/2004 04/21/2014 documented as of this encounter (statuses as of 07/26/2021) [facility]* Problem Noted Date Resolved Date Occult GI bleeding 08/28/2019 05/19/2020 Left inguinal hernia 05/16/2016 10/31/2016 Hypokalemia 06/30/2009 04/21/2014 Family history of diabetes mellitus 10/11/2004 04/12/2018 Obesity, unspecified 10/10/2004 10/31/2016 Other abnormal blood chemistry 10/10/2004 0 04/21/2014 Other convulsions 10/10/2004 04/21/2014 documented as of this encounter (statuses as of 07/27/2021) [facility]* Problem Noted Date Resolved Date Occult GI bleeding 08/28/2019 05/19/2020 Left inguinal hernia 05/16/2016 10/31/2016 Hypokalemia 06/30/2009 04/21/2014 Family history of diabetes mellitus 10/11/2004 04/12/2018 Obesity, unspecified 10/10/2004 10/31/2016 Other abnormal blood chemistry 10/10/2004 0 04/21/2014 Other convulsions 10/10/2004 04/21/2014 documented as of this encounter (statuses as of 08/01/2021) [facility]* Problem Noted Date Resolved Date Occult GI bleeding 08/28/2019 05/19/2020 Left inguinal hernia 05/16/2016 10/31/2016 Hypokalemia 06/30/2009 04/21/2014 Family history of diabetes mellitus 10/11/2004 04/12/2018 Obesity, unspecified 10/10/2004 10/31/2016 Other abnormal blood chemistry 10/10/2004 0 04/21/2014 Other convulsions 10/10/2004 04/21/2014 documented as of this encounter (statuses as of 08/01/2021) [facility]arr[facility]* Problem Noted Date Resolved Date Occult GI bleeding 08/28/2019 05/19/2020 Left inguinal hernia 05/16/2016 10/31/2016 Hypokalemia 06/30/2009 04/21/2014 Family history of diabetes mellitus 10/11/2004 04/12/2018 Obesity, unspecified 10/10/2004 10/31/2016 Other abnormal blood chemistry 10/10/2004 0 04/21/2014 Other convulsions 10/10/2004 04/21/2014 documented as of this encounter (statuses as of 08/03/2021) [facility]* Problem Noted Date Resolved Date Occult GI bleeding 08/28/2019 05/19/2020 Left inguinal hernia 05/16/2016 10/31/2016 Hypokalemia 06/30/2009 04/21/2014 Family history of diabetes mellitus 10/11/2004 04/12/2018 Obesity, unspecified 10/10/2004 10/31/2016 Other abnormal blood chemistry 10/10/2004 0 04/21/2014 Other convulsions 10/10/2004 04/21/2014 documented as of this encounter (statuses as of 08/03/2021) [facility]* Problem Noted Date Resolved Date Occult GI bleeding 08/28/2019 05/19/2020 Left inguinal hernia 05/16/2016 10/31/2016 Hypokalemia 06/30/2009 04/21/2014 Family history of diabetes mellitus 10/11/2004 04/12/2018 Obesity, unspecified 10/10/2004 10/31/2016 Other abnormal blood chemistry 10/10/2004 0 04/21/2014 Other convulsions 10/10/2004 04/21/2014 documented as of this encounter (statuses as of 08/10/2021) [facility]* Problem Noted Date Resolved Date Occult GI bleeding 08/28/2019 05/19/2020 Left inguinal hernia 05/16/2016 10/31/2016 Hypokalemia 06/30/2009 04/21/2014 Family history of diabetes mellitus 10/11/2004 04/12/2018 Obesity, unspecified 10/10/2004 10/31/2016 Other abnormal blood chemistry 10/10/2004 0 04/21/2014 Other convulsions 10/10/2004 04/21/2014 documented as of this encounter (statuses as of 08/30/2021) [facility]arr[facility]* Problem Noted Date Resolved Date Occult GI bleeding 08/28/2019 05/19/2020 Left inguinal hernia 05/16/2016 10/31/2016 Hypokalemia 06/30/2009 04/21/2014 Family history of diabetes mellitus 10/11/2004 04/12/2018 Obesity, unspecified 10/10/2004 10/31/2016 Other abnormal blood chemistry 10/10/2004 0 04/21/2014 Other convulsions 10/10/2004 04/21/2014 documented as of this encounter (statuses as of 09/01/2021) [facility]2020 History of Past illness Narrative* Problem Noted Date Resolved Date Occult GI bleeding 08/28/2019 05/19/2020 Left inguinal hernia 05/16/2016 10/31/2016 Hypokalemia 06/30/2009 04/21/2014 Family history of diabetes mellitus 10/11/2004 04/12/2018 Obesity, unspecified 10/10/2004 10/31/2016 Other abnormal blood chemistry 10/10/2004 0 04/21/2014 Other convulsions 10/10/2004 04/21/2014 documented as of this encounter (statuses as of 09/22/2021) [facility] History of Past illness Narrative* Problem Noted Date Resolved Date Occult GI bleeding 08/28/2019 05/19/2020 Left inguinal hernia 05/16/2016 10/31/2016 Hypokalemia 06/30/2009 04/21/2014 Family history of diabetes mellitus 10/11/2004 04/12/2018 Obesity, unspecified 10/10/2004 10/31/2016 Other abnormal blood chemistry 10/10/2004 0 04/21/2014 Other convulsions 10/10/2004 04/21/2014 documented as of this encounter (statuses as of 10/17/2021) [facility] History of Past illness Narrative* Problem Noted Date Resolved Date Occult GI bleeding 08/28/2019 05/19/2020 Left inguinal hernia 05/16/2016 10/31/2016 Hypokalemia 06/30/2009 04/21/2014 Family history of diabetes mellitus 10/11/2004 04/12/2018 Obesity, unspecified 10/10/2004 10/31/2016 Other abnormal blood chemistry 10/10/2004 0 04/21/2014 Other convulsions 10/10/2004 04/21/2014 documented as of this encounter (statuses as of 11/29/2021) [facility] History of Past illness Narrative* Problem Noted Date Resolved Date Occult GI bleeding 08/28/2019 05/19/2020 Left inguinal hernia 05/16/2016 10/31/2016 Hypokalemia 06/30/2009 04/21/2014 Family history of diabetes mellitus 10/11/2004 04/12/2018 Obesity, unspecified 10/10/2004 10/31/2016 Other abnormal blood chemistry 10/10/2004 0 04/21/2014 Other convulsions 10/10/2004 04/21/2014 documented as of this encounter (statuses as of 12/19/2021) [facility] History of Past illness Narrative* Problem Noted Date Resolved Date Occult GI bleeding 08/28/2019 05/19/2020 Left inguinal hernia 05/16/2016 10/31/2016 Hypokalemia 06/30/2009 04/21/2014 Family history of diabetes mellitus 10/11/2004 04/12/2018 Obesity, unspecified 10/10/2004 10/31/2016 Other abnormal blood chemistry 10/10/2004 0 04/21/2014 Other convulsions 10/10/2004 04/21/2014 documented as of this encounter (statuses as of 01/31/2022) [facility] History of Past illness Narrative* Problem Noted Date Resolved Date Occult GI bleeding 08/28/2019 05/19/2020 Left inguinal hernia 05/16/2016 10/31/2016 Hypokalemia 06/30/2009 04/21/2014 Family history of diabetes mellitus 10/11/2004 04/12/2018 Obesity, unspecified 10/10/2004 10/31/2016 Other abnormal blood chemistry 10/10/2004 0 04/21/2014 Other convulsions 10/10/2004 04/21/2014 documented as of this encounter (statuses as of 02/13/2022) [facility] History of Past illness Narrative* Problem Noted Date Resolved Date Occult GI bleeding 08/28/2019 05/19/2020 Left inguinal hernia 05/16/2016 10/31/2016 Hypokalemia 06/30/2009 04/21/2014 Family history of diabetes mellitus 10/11/2004 04/12/2018 Obesity, unspecified 10/10/2004 10/31/2016 Other abnormal blood chemistry 10/10/2004 0 04/21/2014 Other convulsions 10/10/2004 04/21/2014 documented as of this encounter (statuses as of 02/26/2022) [facility] History of Past illness Narrative* Problem Noted Date Resolved Date Occult GI bleeding 08/28/2019 05/19/2020 Left inguinal hernia 05/16/2016 10/31/2016 Hypokalemia 06/30/2009 04/21/2014 Family history of diabetes mellitus 10/11/2004 04/12/2018 Obesity, unspecified 10/10/2004 10/31/2016 Other abnormal blood chemistry 10/10/2004 0 04/21/2014 Other convulsions 10/10/2004 04/21/2014 documented as of this encounter (statuses as of 03/01/2022) [facility] History of Past illness Narrative* Problem Noted Date Resolved Date Occult GI bleeding 08/28/2019 05/19/2020 Left inguinal hernia 05/16/2016 10/31/2016 Hypokalemia 06/30/2009 04/21/2014 Family history of diabetes mellitus 10/11/2004 04/12/2018 Obesity, unspecified 10/10/2004 10/31/2016 Other abnormal blood chemistry 10/10/2004 0 04/21/2014 Other convulsions 10/10/2004 04/21/2014 documented as of this encounter (statuses as of 03/03/2022) [facility] History of Past illness Narrative* Problem Noted Date Resolved Date Occult GI bleeding 08/28/2019 05/19/2020 Left inguinal hernia 05/16/2016 10/31/2016 Hypokalemia 06/30/2009 04/21/2014 Family history of diabetes mellitus 10/11/2004 04/12/2018 Obesity, unspecified 10/10/2004 10/31/2016 Other abnormal blood chemistry 10/10/2004 0 04/21/2014 Other convulsions 10/10/2004 04/21/2014 documented as of this encounter (statuses as of 03/09/2022) [facility] History of Past illness Narrative* Problem Noted Date Resolved Date Occult GI bleeding 08/28/2019 05/19/2020 Left inguinal hernia 05/16/2016 10/31/2016 Hypokalemia 06/30/2009 04/21/2014 Family history of diabetes mellitus 10/11/2004 04/12/2018 Obesity, unspecified 10/10/2004 10/31/2016 Other abnormal blood chemistry 10/10/2004 0 04/21/2014 Other convulsions 10/10/2004 04/21/2014 documented as of this encounter (statuses as of 03/10/2022) [facility] History of Past illness Narrative* Problem Noted Date Resolved Date Occult GI bleeding 08/28/2019 05/19/2020 Left inguinal hernia 05/16/2016 10/31/2016 Hypokalemia 06/30/2009 04/21/2014 Family history of diabetes mellitus 10/11/2004 04/12/2018 Obesity, unspecified 10/10/2004 10/31/2016 Other abnormal blood chemistry 10/10/2004 0 04/21/2014 Other convulsions 10/10/2004 04/21/2014 documented as of this encounter (statuses as of 03/17/2022) [facility] History of Past illness Narrative* Problem Noted Date Resolved Date Occult GI bleeding 08/28/2019 05/19/2020 Left inguinal hernia 05/16/2016 10/31/2016 Hypokalemia 06/30/2009 04/21/2014 Family history of diabetes mellitus 10/11/2004 04/12/2018 Obesity, unspecified 10/10/2004 10/31/2016 Other abnormal blood chemistry 10/10/2004 0 04/21/2014 Other convulsions 10/10/2004 04/21/2014 documented as of this encounter (statuses as of 03/21/2022) [facility] History of Past illness Narrative* Problem Noted Date Resolved Date Occult GI bleeding 08/28/2019 05/19/2020 Left inguinal hernia 05/16/2016 10/31/2016 Hypokalemia 06/30/2009 04/21/2014 Family history of diabetes mellitus 10/11/2004 04/12/2018 Obesity, unspecified 10/10/2004 10/31/2016 Other abnormal blood chemistry 10/10/2004 0 04/21/2014 Other convulsions 10/10/2004 04/21/2014 documented as of this encounter (statuses as of 03/21/2022) [facility] History of Past illness Narrative* Problem Noted Date Resolved Date Occult GI bleeding 08/28/2019 05/19/2020 Left inguinal hernia 05/16/2016 10/31/2016 Hypokalemia 06/30/2009 04/21/2014 Family history of diabetes mellitus 10/11/2004 04/12/2018 Obesity, unspecified 10/10/2004 10/31/2016 Other abnormal blood chemistry 10/10/2004 0 04/21/2014 Other convulsions 10/10/2004 04/21/2014 documented as of this encounter (statuses as of 03/27/2022) [facility] History of Past illness Narrative* Problem Noted Date Resolved Date Occult GI bleeding 08/28/2019 05/19/2020 Left inguinal hernia 05/16/2016 10/31/2016 Hypokalemia 06/30/2009 04/21/2014 Family history of diabetes mellitus 10/11/2004 04/12/2018 Obesity, unspecified 10/10/2004 10/31/2016 Other abnormal blood chemistry 10/10/2004 0 04/21/2014 Other convulsions 10/10/2004 04/21/2014 documented as of this encounter (statuses as of 03/28/2022) [facility] History of Past illness Narrative* Problem Noted Date Resolved Date Occult GI bleeding 08/28/2019 05/19/2020 Left inguinal hernia 05/16/2016 10/31/2016 Hypokalemia 06/30/2009 04/21/2014 Family history of diabetes mellitus 10/11/2004 04/12/2018 Obesity, unspecified 10/10/2004 10/31/2016 Other abnormal blood chemistry 10/10/2004 0 04/21/2014 Other convulsions 10/10/2004 04/21/2014 documented as of this encounter (statuses as of 04/03/2022) [facility] History of Past illness Narrative* Problem Noted Date Resolved Date Occult GI bleeding 08/28/2019 05/19/2020 Left inguinal hernia 05/16/2016 10/31/2016 Hypokalemia 06/30/2009 04/21/2014 Family history of diabetes mellitus 10/11/2004 04/12/2018 Obesity, unspecified 10/10/2004 10/31/2016 Other abnormal blood chemistry 10/10/2004 0 04/21/2014 Other convulsions 10/10/2004 04/21/2014 documented as of this encounter (statuses as of 04/04/2022) [facility] History of Past illness Narrative* Problem Noted Date Resolved Date Occult GI bleeding 08/28/2019 05/19/2020 Left inguinal hernia 05/16/2016 10/31/2016 Hypokalemia 06/30/2009 04/21/2014 Family history of diabetes mellitus 10/11/2004 04/12/2018 Obesity, unspecified 10/10/2004 10/31/2016 Other abnormal blood chemistry 10/10/2004 0 04/21/2014 Other convulsions 10/10/2004 04/21/2014 documented as of this encounter (statuses as of 04/16/2022) [facility] History of Past illness Narrative* Problem Noted Date Resolved Date Occult GI bleeding 08/28/2019 05/19/2020 Left inguinal hernia 05/16/2016 10/31/2016 Hypokalemia 06/30/2009 04/21/2014 Family history of diabetes mellitus 10/11/2004 04/12/2018 Obesity, unspecified 10/10/2004 10/31/2016 Other abnormal blood chemistry 10/10/2004 0 04/21/2014 Other convulsions 10/10/2004 04/21/2014 documented as of this encounter (statuses as of 05/01/2022) [facility] History of Past illness Narrative* Problem Noted Date Resolved Date Occult GI bleeding 08/28/2019 05/19/2020 Left inguinal hernia 05/16/2016 10/31/2016 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 04/23/2015 07/19/2022 Hypokalemia 06/30/2009 04/21/2014 Family history of diabetes mellitus 10/11/2004 04/12/2018 Obesity, unspecified 10/10/2004 10/31/2016 Other abnormal blood chemistry 10/10/2004 0 04/21/2014 Other convulsions 10/10/2004 04/21/2014 documented as of this encounter (statuses as of 08/02/2022) [facility] History of Past illness Narrative* Problem Noted Date Resolved Date Occult GI bleeding 08/28/2019 05/19/2020 Left inguinal hernia 05/16/2016 10/31/2016 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 04/23/2015 07/19/2022 Hypokalemia 06/30/2009 04/21/2014 Family history of diabetes mellitus 10/11/2004 04/12/2018 Obesity, unspecified 10/10/2004 10/31/2016 Other abnormal blood chemistry 10/10/2004 0 04/21/2014 Other convulsions 10/10/2004 04/21/2014 documented as of this encounter (statuses as of 08/31/2022) [facility] History of Past illness Narrative* Problem Noted Date Diagnosed Date Resolved Date Occult GI bleeding 08/28/2019 1 Left inguinal hernia 05/16/2016 017 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 04/23/20152022 Hypokalemia 06/30/2009 04/21/2014 Family history of diabetes mellitus 10/11/2004 04/12/2018 Obesity, unspecified 10/10/2004 017 Other abnormal blood chemistry 10/10/2004 04/21/2014 Other convulsions 10/10/2004 04/21/2014 documented as of this encounter (statuses as of 09/04/2022) [facility] History of Past illness Narrative* Problem Noted Date Diagnosed Date Resolved Date Occult GI bleeding 08/28/2019 1 Left inguinal hernia 05/16/2016 017 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 04/23/20152022 Hypokalemia 06/30/2009 04/21/2014 Family history of diabetes mellitus 10/11/2004 04/12/2018 Obesity, unspecified 10/10/2004 017 Other abnormal blood chemistry 10/10/2004 04/21/2014 Other convulsions 10/10/2004 04/21/2014 documented as of this encounter (statuses as of 09/07/2022) [facility] History of Past illness Narrative* Problem Noted Date Diagnosed Date Resolved Date Occult GI bleeding 08/28/2019 1 Left inguinal hernia 05/16/2016 017 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 04/23/20152022 Hypokalemia 06/30/2009 04/21/2014 Family history of diabetes mellitus 10/11/2004 04/12/2018 Obesity, unspecified 10/10/2004 017 Other abnormal blood chemistry 10/10/2004 04/21/2014 Other convulsions 10/10/2004 04/21/2014 documented as of this encounter (statuses as of 09/11/2022) [facility] History of Past illness Narrative* Problem Noted Date Diagnosed Date Resolved Date Occult GI bleeding 08/28/2019 1 Left inguinal hernia 05/16/2016 017 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 04/23/20152022 Hypokalemia 06/30/2009 04/21/2014 Family history of diabetes mellitus 10/11/2004 04/12/2018 Obesity, unspecified 10/10/2004 017 Other abnormal blood chemistry 10/10/2004 04/21/2014 Other convulsions 10/10/2004 04/21/2014 documented as of this encounter (statuses as of 09/11/2022) [facility] History of Past illness Narrative* Problem Noted Date Diagnosed Date Resolved Date Occult GI bleeding 08/28/2019 1 Left inguinal hernia 05/16/2016 017 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 04/23/20152022 Hypokalemia 06/30/2009 04/21/2014 Family history of diabetes mellitus 10/11/2004 04/12/2018 Obesity, unspecified 10/10/2004 017 Other abnormal blood chemistry 10/10/2004 04/21/2014 Other convulsions 10/10/2004 04/21/2014 documented as of this encounter (statuses as of 09/14/2022) [facility] History of Past illness Narrative* Problem Noted Date Diagnosed Date Resolved Date Occult GI bleeding 08/28/2019 1 Left inguinal hernia 05/16/2016 017 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 04/23/20152022 Hypokalemia 06/30/2009 04/21/2014 Family history of diabetes mellitus 10/11/2004 04/12/2018 Obesity, unspecified 10/10/2004 017 Other abnormal blood chemistry 10/10/2004 04/21/2014 Other convulsions 10/10/2004 04/21/2014 documented as of this encounter (statuses as of 10/10/2022) [facility] History of Past illness Narrative* Problem Noted Date Diagnosed Date Resolved Date Occult GI bleeding 08/28/2019 1 Left inguinal hernia 05/16/2016 017 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 04/23/20152022 Hypokalemia 06/30/2009 04/21/2014 Family history of diabetes mellitus 10/11/2004 04/12/2018 Obesity, unspecified 10/10/2004 017 Other abnormal blood chemistry 10/10/2004 04/21/2014 Other convulsions 10/10/2004 04/21/2014 documented as of this encounter (statuses as of 10/27/2022) [facility] History of Past illness Narrative* Problem Noted Date Diagnosed Date Resolved Date Occult GI bleeding 08/28/2019 1 Left inguinal hernia 05/16/2016 017 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 04/23/20152022 Hypokalemia 06/30/2009 04/21/2014 Family history of diabetes mellitus 10/11/2004 04/12/2018 Obesity, unspecified 10/10/2004 017 Other abnormal blood chemistry 10/10/2004 04/21/2014 Other convulsions 10/10/2004 04/21/2014 documented as of this encounter (statuses as of 11/17/2022) [facility] History of Past illness Narrative* Problem Noted Date Diagnosed Date Resolved Date Occult GI bleeding 08/28/2019 1 Left inguinal hernia 05/16/2016 017 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 04/23/20152022 Hypokalemia 06/30/2009 04/21/2014 Family history of diabetes mellitus 10/11/2004 04/12/2018 Obesity, unspecified 10/10/2004 017 Other abnormal blood chemistry 10/10/2004 04/21/2014 Other convulsions 10/10/2004 04/21/2014 documented as of this encounter (statuses as of 11/25/2022) [facility] History of Past illness Narrative* Problem Noted Date Diagnosed Date Resolved Date Occult GI bleeding 08/28/2019 1 Left inguinal hernia 05/16/2016 017 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 04/23/20152022 Hypokalemia 06/30/2009 04/21/2014 Family history of diabetes mellitus 10/11/2004 04/12/2018 Obesity, unspecified 10/10/2004 017 Other abnormal blood chemistry 10/10/2004 04/21/2014 Other convulsions 10/10/2004 04/21/2014 documented as of this encounter (statuses as of 11/25/2022) [facility] History of Past illness Narrative* Problem Noted Date Diagnosed Date Resolved Date Occult GI bleeding 08/28/2019 1 Left inguinal hernia 05/16/2016 017 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 04/23/20152022 Hypokalemia 06/30/2009 04/21/2014 Family history of diabetes mellitus 10/11/2004 04/12/2018 Obesity, unspecified 10/10/2004 017 Other abnormal blood chemistry 10/10/2004 04/21/2014 Other convulsions 10/10/2004 04/21/2014 documented as of this encounter (statuses as of 11/26/2022) [facility] Diagnosis Overactive bladder- Primary Hypertonicity of bladder Urinary incontinence, unspecified type Urinary frequency Type 2 diabetes mellitus with polyneuropathy (HCC) Type II or unspecified type diabetes mellitus with neurological manifestations, not stated as uncontrolled Gait abnormality Abnormality of gait Other hyperlipidemia Primary hypertension Unspecified essential [facility] Urinary incontinence, unspecified type- Primary Acute cystitis with hematuria [facility] Acute cystitis without hematuria- Primary [facility]stitis [facility] Type 2 diabetes mellitus with polyneuropathy (HCC)- Primary Type II or unspecified type diabetes mellitus with neurological manifestations, not stated as uncontrolled [facility] Gait abnormality- Primary Abnormality of gait [facility] Diagnosis Gait abnormality- Primary Abnormality of gait Abnormality of gait documented in this encounter [facility] note* Diagnosis Gait abnormality- Primary Abnormality of gait documented in this encounter [facility] note* Diagnosis Gait abnormality- Primary Abnormality of gait documented in this encounter [facility] note* Diagnosis Gait abnormality- Primary Abnormality of gait documented in this encounter [facility] note* Diagnosis Gait abnormality- Primary Abnormality of gait documented in this encounter [facility] note* Diagnosis Gait abnormality- Primary Abnormality of gait [facility] Diagnosis Gait abnormality- Primary Abnormality of gait documented in this encounter [facility] note* Diagnosis Acid indigestion Dyspepsia and other specified disorders of function of stomach documented in this encounter [facility] note* Diagnosis Gait abnormality- Primary Abnormality of gait documented in this encounter [facility] note* Diagnosis Weight loss, abnormal- Primary Loss of weight Dysphagia, unspecified type Proteinuria, unspecified type [facility] Diagnosis Primary hypertension- Primary Unspecified essential hypertension Screening for ischemic heart disease documented in this encounter [facility] note* Diagnosis Weight loss, abnormal- Primary Loss of weight Hypotension, unspecified hypotension type Type 2 diabetes mellitus with polyneuropathy (HCC) Type II or unspecified type diabetes mellitus with neurological manifestations, not stated as uncontrolled Dysphagia, unspecified type Primary hypertension Unspecified essential hypertension Cardiomyopathy, unspecified type (HCC) Encounter for immunization Need for other specified prophylactic vaccination against single bacterial disease documented in this encounter [facility] note* Diagnosis Dilated cardiomyopathy (HCC) Other primary cardiomyopathies [facility] Diagnosis Dilated cardiomyopathy (HCC)- Primary Other primary cardiomyopathies [facility] Diagnosis Urinary incontinence, unspecified type- Primary BPH with urinary obstruction Hypertrophy of prostate with urinary obstruction and other lower urinary tract symptoms (LUTS) [facility] Diagnosis Weight loss, unintentional- Primary Loss of weight Dilated cardiomyopathy (HCC) Other primary cardiomyopathies Type 2 diabetes mellitus with polyneuropathy (HCC) Type II or unspecified type diabetes mellitus with neurological manifestations, not stated as uncontrolled Encounter for immunization Need for other specified prophylactic vaccination against single bacterial disease Delay in development Lack of normal physiological development, unspecified [facility] Weight loss, unintentional- Primary Loss of weight Primary hypertension Unspecified essential hypertension Type 2 diabetes mellitus with polyneuropathy (HCC) Type II or unspecified type diabetes mellitus with neurological manifestations, not stated as uncontrolled [facility] Diagnosis Orthostatic hypotension- Primary Type 2 diabetes mellitus with polyneuropathy (HCC) Type II or unspecified type diabetes mellitus with neurological manifestations, not stated as uncontrolled Weight loss, unintentional Loss of weight Delay in development Lack of normal physiological development, unspecified Chronic fatigue Other malaise and fatigue Dilated cardiomyopathy (HCC) Other primary cardiomyopathies Need for vaccination Need for prophylactic vaccination and inoculation against unspecified single disease Primary hypertension- Primary Unspecified essential hypertension Other hyperlipidemia Cardiomyopathy, unspecified type (HCC) [facility] Diagnosis Weight loss, unintentional- Primary Loss of weight Primary hypertension Unspecified essential hypertension Type 2 diabetes mellitus with polyneuropathy (HCC) Type II or unspecified type diabetes mellitus with neurological manifestations, not stated as uncontrolled Delay in development Lack of normal physiological development, unspecified [facility] Urinary incontinence, unspecified type [facility] Diagnosis Orthostatic hypotension [I95.1]- Primary Orthostatic hypotension Cardiomyopathy, nonischemic (HCC) Other primary cardiomyopathies [facility] Diagnosis Type 2 diabetes mellitus with polyneuropathy (HCC)- Primary Type II or unspecified type diabetes mellitus with neurological manifestations, not stated as uncontrolled Underweight Primary hypertension Unspecified essential hypertension Daytime sleepiness Polyuria 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 Other hyperlipidemia Vasovagal reaction Syncope and collapse Chronic fatigue Other malaise and fatigue Encounter for long-term current use of medication Weight loss, unintentional Loss of weight documented in [facility] Diagnosis Recurrent syncope- Primary History of seizure disorder Personal history of other disorders of nervous system and sense organs History of traumatic brain injury Personal history of traumatic brain injury Daytime sleepiness documented [facility] Diagnosis Recurrent syncope- Primary History of seizure disorder Personal history of other disorders of nervous system and sense organs History of traumatic brain injury Personal history of traumatic brain injury Daytime sleepiness documented [facility] Diagnosis Type 2 diabetes mellitus with polyneuropathy (HCC)- Primary Type II or unspecified type diabetes mellitus with neurological manifestations, not stated as uncontrolled Underweight Primary hypertension Unspecified essential hypertension Daytime sleepiness Other hyperlipidemia High serum vitamin D Vitamin D deficiency Unspecified vitamin D deficiency Encounter for long-term current use of medication documented in this encounter [facility] note* Diagnosis Cardiomyopathy, nonischemic (HCC) [I42.8]- Primary Other primary cardiomyopathies Orthostatic hypotension [I95.1] Orthostatic hypotension documented in this encounter [facility] for referral (narrative)* Outpatient Procedure (Routine) - Closed Specialty Diagnoses / Procedures Referred By Contac t Referred To Contact [facility] Diagnoses Screening for ischemic heart disease Procedures ECG COMPLETE ECG ROUTINE ECG W/LEAST 12 LDS W/I&R Dl Wheeler MD [address] [place] [address] [facility] [id number] [place] [address] Referral ID Status Reason Start Date Expiration Date V isits Requested Visits Authorized [id number] Closed Auto-Generate d Referral 10/11/2021 02/25/2022 1 1 [facility] for referral (narrative)* Outpatient Procedure (Routine) - Pending Review Specialty Diagnoses / Procedures Referred By Contac t Referred To Contact [facility] Diagnoses Recurrent syncope History of seizure disorder History of traumatic brain injury Daytime sleepiness Procedures EPIL EEG LEAD PLACEMENT EEG EXTENDED MONITORING 61-119 MINUTES ELECTROENCEPHALOGRAM REC COMA/SLEEP ONLY Luiza Solares APRN.CNP [address] [place] [address] [facility] [address] [place] [address] Referral ID Status Reason Start Date Expiration Date Visits Requested Visits Authorized [id number] Pending Review Auto-Generat ed Referral 11/24/2022 11/25/2023 1 1 [facility] for visit Narrative* Outpatient Procedure (Routine) - Closed Specialty Diagnoses / Procedures Referred By Contac t Referred To Contact [facility] Diagnoses Dilated cardiomyopathy (HCC) Procedures ECHO ECHO TTHRC R-T 2D W/WOM-MODE COMPL SPEC&COLR D Eliza Zamora MD [address] [place] [address] [facility] [address] [place] [address] Referral ID Status Reason Start Date Expiration Date V isits Requested Visits Authorized [id number] Closed Auto-Generate d Referral 02/06/2022 03/23/2022 1 1 [facility] Summary Purpose Family History No Family History Records FoundNo Family History Records FoundNo Family History Records Found Advance Directives No Advanced Directives Records FoundNo Advanced Directives Records FoundNo Advanced Directives Records Found Reason for Referral Specialty Diagnoses / Procedures Referred By Contac t Referred To Contact Urology Diagnoses Urinary incontinence, unspecified type Overactive bladder Urinary frequency Procedures CONSULT TO UROLOGY OFFICE/OUTPATIENT [facility] 60-74 MINUTES Nehemiah Thomas MD [address] [place] [address] Referral ID Status Reason Start Date Expiration Date Visits Requested Visits Authorized [id number] Authorized PCP Requested Referral 05/30/2021 05/30/2022 1 1 Specialty Diagnoses / Procedures Referred By Contac t Referred To Contact Diagnoses Type 2 diabetes mellitus with polyneuropathy (HCC) Procedures CONSULT TO ENDOCRINOLOGY Nehemiah Thomas MD [address] [place] [address] Referral ID Status Reason Start Date Expiration Date Visits Requested Visits Authorized [id number] Ref Not Required PCP Requested Referral 06/13/2021 06/08/2022 1 1 Specialty Diagnoses / Procedures Referred By Contac t Referred To Contact Orthopedics Diagnoses Gait abnormality Procedures CONSULT TO ORTHOPAEDICS OFFICE/OUTPATIENT [facility] 60-74 MINUTES Nehemiah Thomas MD [address] [place] [address] Referral ID Status Reason Start Date Expiration Date V isits Requested Visits Authorized [id number] Closed PCP Requested Referral 04/20/2021 04/20/2022 1 1 Specialty Diagnoses / Procedures Referred By Contac t Referred To Contact Gastroenterology Diagnoses Weight loss, abnormal Dysphagia, unspecified type Procedures CONSULT TO GASTROENTEROLOGY Nehemiah Thomas MD [address] [place] [address] Referral ID Status Reason Start Date Expiration Date Visits Requested Visits Authorized [id number] Ref Not Required PCP Requested Referral 09/01/2021 09/01/2022 1 1 Additional Source Comments (unrecognized sect ion and content) No Status Records FoundNo Status Records FoundNo Status Records Found INFORMATION SOURCE (unrecogn ized section and content) DATE CREATED AUTHOR AUTHOR'S ORGANIZ ATION 12/10/2022 [facility] DATE CREATED AUTHOR AUTHOR'S ORGANIZ ATION 04/06/2023 [facility] Source Comments (unrecognize d section and content) In the event this informatio n is protected by the Federal Confidentiality of Alcohol and Drug Abuse Patient Records regulations: The Federal rules restrict any use of the information to criminally investigate or prosecute any alcohol or drug abuse patient.[facility] event this information is protected by the Federal Confidentiality of Alcohol and Drug Abuse Patient Records regulations: The Federal rules restrict any use of the information to criminally investigate or prosecute any alcohol or drug abuse patient.[facility] the event this information is protected by the Federal Confidentiality of Alcohol and Drug Abuse Patient Records regulations: The Federal rules restrict any use of the information to criminally investigate or prosecute any alcohol or drug abuse patient.[facility] the event this information is protected by the Federal Confidentiality of Alcohol and Drug Abuse Patient Records regulations: The Federal rules restrict any use of the information to criminally investigate or prosecute any alcohol or drug abuse patient.[facility] the event this information is protected by the Federal Confidentiality of Alcohol and Drug Abuse Patient Records regulations: The Federal rules restrict any use of the information to criminally investigate or prosecute any alcohol or drug abuse patient.[facility] the event this information is protected by the Federal Confidentiality of Alcohol and Drug Abuse Patient Records regulations: The Federal rules restrict any use of the information to criminally investigate or prosecute any alcohol or drug abuse patient.[facility] the event this information is protected by the Federal Confidentiality of Alcohol and Drug Abuse Patient Records regulations: The Federal rules restrict any use of the information to criminally investigate or prosecute any alcohol or drug abuse patient.[facility] the event this information is protected by the Federal Confidentiality of Alcohol and Drug Abuse Patient Records regulations: The Federal rules restrict any use of the information to criminally investigate or prosecute any alcohol or drug abuse patient.[facility] the event this information is protected by the Federal Confidentiality of Alcohol and Drug Abuse Patient Records regulations: The Federal rules restrict any use of the information to criminally investigate or prosecute any alcohol or drug abuse patient.[facility] the event this information is protected by the Federal Confidentiality of Alcohol and Drug Abuse Patient Records regulations: The Federal rules restrict any use of the information to criminally investigate or prosecute any alcohol or drug abuse patient.[facility] the event this information is protected by the Federal Confidentiality of Alcohol and Drug Abuse Patient Records regulations: The Federal rules restrict any use of the information to criminally investigate or prosecute any alcohol or drug abuse patient.[facility] the event this information is protected by the Federal Confidentiality of Alcohol and Drug Abuse Patient Records regulations: The Federal rules restrict any use of the information to criminally investigate or prosecute any alcohol or drug abuse patient.[facility] the event this information is protected by the Federal Confidentiality of Alcohol and Drug Abuse Patient Records regulations: The Federal rules restrict any use of the information to criminally investigate or prosecute any alcohol or drug abuse patient.[facility] the event this information is protected by the Federal Confidentiality of Alcohol and Drug Abuse Patient Records regulations: The Federal rules restrict any use of the information to criminally investigate or prosecute any alcohol or drug abuse patient.[facility] the event this information is protected by the Federal Confidentiality of Alcohol and Drug Abuse Patient Records regulations: The Federal rules restrict any use of the information to criminally investigate or prosecute any alcohol or drug abuse patient.[facility] the event this information is protected by the Federal Confidentiality of Alcohol and Drug Abuse Patient Records regulations: The Federal rules restrict any use of the information to criminally investigate or prosecute any alcohol or drug abuse patient.[facility]In the event this information is protected by the Federal Confidentiality of Alcohol and Drug Abuse Patient Records regulations: The Federal rules restrict any use of the information to criminally investigate or prosecute any alcohol or drug abuse patient.[facility]In the event this information is protected by the Federal Confidentiality of Alcohol and Drug Abuse Patient Records regulations: The Federal rules restrict any use of the information to criminally investigate or prosecute any alcohol or drug abuse patient.[facility]In the event this information is protected by the Federal Confidentiality of Alcohol and Drug Abuse Patient Records regulations: The Federal rules restrict any use of the information to criminally investigate or prosecute any alcohol or drug abuse patient.[facility]In the event this information is protected by the Federal Confidentiality of Alcohol and Drug Abuse Patient Records regulations: The Federal rules restrict any use of the information to criminally investigate or prosecute any alcohol or drug abuse patient.[facility]In the event this information is protected by the Federal Confidentiality of Alcohol and Drug Abuse Patient Records regulations: The Federal rules restrict any use of the information to criminally investigate or prosecute any alcohol or drug abuse patient.[facility]In the event this information is protected by the Federal Confidentiality of Alcohol and Drug Abuse Patient Records regulations: The Federal rules restrict any use of the information to criminally investigate or prosecute any alcohol or drug abuse patient.[facility] the event this information is protected by the Federal Confidentiality of Alcohol and Drug Abuse Patient Records regulations: The Federal rules restrict any use of the information to criminally investigate or prosecute any alcohol or drug abuse patient.[facility] the event this information is protected by the Federal Confidentiality of Alcohol and Drug Abuse Patient Records regulations: The Federal rules restrict any use of the information to criminally investigate or prosecute any alcohol or drug abuse patient.[facility]In the event this information is protected by the Federal Confidentiality of Alcohol and Drug Abuse Patient Records regulations: The Federal rules restrict any use of the information to criminally investigate or prosecute any alcohol or drug abuse patient.[facility]In the event this information is protected by the Federal Confidentiality of Alcohol and Drug Abuse Patient Records regulations: The Federal rules restrict any use of the information to criminally investigate or prosecute any alcohol or drug abuse patient.[facility]In the event this information is protected by the Federal Confidentiality of Alcohol and Drug Abuse Patient Records regulations: The Federal rules restrict any use of the information to criminally investigate or prosecute any alcohol or drug abuse patient.[facility]In the event this information is protected by the Federal Confidentiality of Alcohol and Drug Abuse Patient Records regulations: The Federal rules restrict any use of the information to criminally investigate or prosecute any alcohol or drug abuse patient.[facility]In the event this information is protected by the Federal Confidentiality of Alcohol and Drug Abuse Patient Records regulations: The Federal rules restrict any use of the information to criminally investigate or prosecute any alcohol or drug abuse patient.[facility]In the event this information is protected by the Federal Confidentiality of Alcohol and Drug Abuse Patient Records regulations: The Federal rules restrict any use of the information to criminally investigate or prosecute any alcohol or drug abuse patient.[facility]In the event this information is protected by the Federal Confidentiality of Alcohol and Drug Abuse Patient Records regulations: The Federal rules restrict any use of the information to criminally investigate or prosecute any alcohol or drug abuse patient.[facility]In the event this information is protected by the Federal Confidentiality of Alcohol and Drug Abuse Patient Records regulations: The Federal rules restrict any use of the information to criminally investigate or prosecute any alcohol or drug abuse patient.[facility]In the event this information is protected by the Federal Confidentiality of Alcohol and Drug Abuse Patient Records regulations: The Federal rules restrict any use of the information to criminally investigate or prosecute any alcohol or drug abuse patient.[facility]In the event this information is protected by the Federal Confidentiality of Alcohol and Drug Abuse Patient Records regulations: The Federal rules restrict any use of the information to criminally investigate or prosecute any alcohol or drug abuse patient.[facility]In the event this information is protected by the Federal Confidentiality of Alcohol and Drug Abuse Patient Records regulations: The Federal rules restrict any use of the information to criminally investigate or prosecute any alcohol or drug abuse patient.[facility]In the event this information is protected by the Federal Confidentiality of Alcohol and Drug Abuse Patient Records regulations: The Federal rules restrict any use of the information to criminally investigate or prosecute any alcohol or drug abuse patient.[facility]In the event this information is protected by the Federal Confidentiality of Alcohol and Drug Abuse Patient Records regulations: The Federal rules restrict any use of the information to criminally investigate or prosecute any alcohol or drug abuse patient.[facility]In the event this information is protected by the Federal Confidentiality of Alcohol and Drug Abuse Patient Records regulations: The Federal rules restrict any use of the information to criminally investigate or prosecute any alcohol or drug abuse patient.[facility]In the event this information is protected by the Federal Confidentiality of Alcohol and Drug Abuse Patient Records regulations: The Federal rules restrict any use of the information to criminally investigate or prosecute any alcohol or drug abuse patient.[facility]In the event this information is protected by the Federal Confidentiality of Alcohol and Drug Abuse Patient Records regulations: The Federal rules restrict any use of the information to criminally investigate or prosecute any alcohol or drug abuse patient.[facility]In the event this information is protected by the Federal Confidentiality of Alcohol and Drug Abuse Patient Records regulations: The Federal rules restrict any use of the information to criminally investigate or prosecute any alcohol or drug abuse patient.[facility]In the event this information is protected by the Federal Confidentiality of Alcohol and Drug Abuse Patient Records regulations: The Federal rules restrict any use of the information to criminally investigate or prosecute any alcohol or drug abuse patient.[facility]In the event this information is protected by the Federal Confidentiality of Alcohol and Drug Abuse Patient Records regulations: The Federal rules restrict any use of the information to criminally investigate or prosecute any alcohol or drug abuse patient.[facility]In the event this information is protected by the Federal Confidentiality of Alcohol and Drug Abuse Patient Records regulations: The Federal rules restrict any use of the information to criminally investigate or prosecute any alcohol or drug abuse patient.[facility]In the event this information is protected by the Federal Confidentiality of Alcohol and Drug Abuse Patient Records regulations: The Federal rules restrict any use of the information to criminally investigate or prosecute any alcohol or drug abuse patient.[facility]In the event this information is protected by the Federal Confidentiality of Alcohol and Drug Abuse Patient Records regulations: The Federal rules restrict any use of the information to criminally investigate or prosecute any alcohol or drug abuse patient.[facility]In the event this information is protected by the Federal Confidentiality of Alcohol and Drug Abuse Patient Records regulations: The Federal rules restrict any use of the information to criminally investigate or prosecute any alcohol or drug abuse patient.[facility]In the event this information is protected by the Federal Confidentiality of Alcohol and Drug Abuse Patient Records regulations: The Federal rules restrict any use of the information to criminally investigate or prosecute any alcohol or drug abuse patient.[facility]In the event this information is protected by the Federal Confidentiality of Alcohol and Drug Abuse Patient Records regulations: The Federal rules restrict any use of the information to criminally investigate or prosecute any alcohol or drug abuse patient.[facility]In the event this information is protected by the Federal Confidentiality of Alcohol and Drug Abuse Patient Records regulations: The Federal rules restrict any use of the information to criminally investigate or prosecute any alcohol or drug abuse patient.[facility]In the event this information is protected by the Federal Confidentiality of Alcohol and Drug Abuse Patient Records regulations: The Federal rules restrict any use of the information to criminally investigate or prosecute any alcohol or drug abuse patient.[facility]In the event this information is protected by the Federal Confidentiality of Alcohol and Drug Abuse Patient Records regulations: The Federal rules restrict any use of the information to criminally investigate or prosecute any alcohol or drug abuse patient.[facility]In the event this information is protected by the Federal Confidentiality of Alcohol and Drug Abuse Patient Records regulations: The Federal rules restrict any use of the information to criminally investigate or prosecute any alcohol or drug abuse patient.[facility]In the event this information is protected by the Federal Confidentiality of Alcohol and Drug Abuse Patient Records regulations: The Federal rules restrict any use of the information to criminally investigate or prosecute any alcohol or drug abuse patient.[facility]In the event this information is protected by the Federal Confidentiality of Alcohol and Drug Abuse Patient Records regulations: The Federal rules restrict any use of the information to criminally investigate or prosecute any alcohol or drug abuse patient.[facility]In the event this information is protected by the Federal Confidentiality of Alcohol and Drug Abuse Patient Records regulations: The Federal rules restrict any use of the information to criminally investigate or prosecute any alcohol or drug abuse patient.[facility]In the event this information is protected by the Federal Confidentiality of Alcohol and Drug Abuse Patient Records regulations: The Federal rules restrict any use of the information to criminally investigate or prosecute any alcohol or drug abuse patient.[facility]In the event this information is protected by the Federal Confidentiality of Alcohol and Drug Abuse Patient Records regulations: The Federal rules restrict any use of the information to criminally investigate or prosecute any alcohol or drug abuse patient.[facility]In the event this information is protected by the Federal Confidentiality of Alcohol and Drug Abuse Patient Records regulations: The Federal rules restrict any use of the information to criminally investigate or prosecute any alcohol or drug abuse patient.[facility]In the event this information is protected by the Federal Confidentiality of Alcohol and Drug Abuse Patient Records regulations: The Federal rules restrict any use of the information to criminally investigate or prosecute any alcohol or drug abuse patient.[facility]In the event this information is protected by the Federal Confidentiality of Alcohol and Drug Abuse Patient Records regulations: The Federal rules restrict any use of the information to criminally investigate or prosecute any alcohol or drug abuse patient.[facility]In the event this information is protected by the Federal Confidentiality of Alcohol and Drug Abuse Patient Records regulations: The Federal rules restrict any use of the information to criminally investigate or prosecute any alcohol or drug abuse patient.[facility]In the event this information is protected by the Federal Confidentiality of Alcohol and Drug Abuse Patient Records regulations: The Federal rules restrict any use of the information to criminally investigate or prosecute any alcohol or drug abuse patient.[facility]In the event this information is protected by the Federal Confidentiality of Alcohol and Drug Abuse Patient Records regulations: The Federal rules restrict any use of the information to criminally investigate or prosecute any alcohol or drug abuse patient.[facility]In the event this information is protected by the Federal Confidentiality of Alcohol and Drug Abuse Patient Records regulations: The Federal rules restrict any use of the information to criminally investigate or prosecute any alcohol or drug abuse patient.[facility]In the event this information is protected by the Federal Confidentiality of Alcohol and Drug Abuse Patient Records regulations: The Federal rules restrict any use of the information to criminally investigate or prosecute any alcohol or drug abuse patient.[facility] the event this information is protected by the Federal Confidentiality of Alcohol and Drug Abuse Patient Records regulations: The Federal rules restrict any use of the information to criminally investigate or prosecute any alcohol or drug abuse patient.[facility] Reason for Visit (unrecogniz ed section and content) Specialty Diagnoses / Procedures Referred By Valerio t Referred To Contact [facility] Diagnoses Abnormality of gait Procedures CONSULT TO PHYSICAL THERAPY PHYSICAL THERAPY EVALUATION HIGH COMPLEX 45 MINS Ruperto Encinas MD [address] [place] [address] [facility] [address] [place] [address] Referral ID Status Reason Start Date Expiration Date V isits Requested Visits Authorized [id number] Authorized 02/26/2021 02/25/2022 30 30 Reason Comments Physical Therapy Reason Comments Orders Reason Comments F/U 6 months Reason Comments Follow Up Specialty Diagnoses / Procedures Referred By Contac t Referred To Contact Urology / UROLOGY Diagnoses Urinary incontinence, unspecified type Overactive bladder Urinary frequency Procedures CONSULT TO UROLOGY OFFICE/OUTPATIENT NEW HIGH MDM 60-74 MINUTES Nehemiah Thomas MD [address] [place] [address] [facility] [address] [place] [address] Referral ID Status Reason Start Date Expiration Date V isits Requested Visits Authorized [id number] Closed PCP Requested Referral 05/30/2021 05/30/2022 1 1 Reason Onset Date Comments Refill Request 06/18/2021 Reason Comments PT Eval Patient Education Reason Comments Results Reason Onset Date Comments Refill Request 08/02/2021 Reason Onset Date Comments Refill Request 08/10/2021 Reason Comments Lab Orders Reason Comments Weight Problem Reason Comments Follow Up Reason Comments F/U 6 months Reason Comments Appointment With Dr Bey Reason Comments Consult Specialty Diagnoses / Procedures [facility] Contact U[facility] / UROLOGY Diagnoses prostate nodule- testing at [facility] oon 03/06 Procedures EST UROL Eliza Zamora MD [address] [place] [address] Huy Rodríguez PA-C [address] [place] [address] Referral ID Status Reason Start Date Expiration Date Visits Re quested Visits Authorized [id number] Closed 03/10/2022 06/08/2022 1 1 Reason Comments Patient Update Reason Comments Established Patient Follow up Reason Comments pre admission testing Reason Comments Recheck blood pressure low Reason Comments [facility] ER f/up 03/16 BP Reason Comments Weight Problem Blood Pressure still running low Reason Onset Date Comments Refill Request 08/01/2022 Reason Onset Date Comments Refill Request 08/30/2022 Reason Comments Established Patient Follow-Up Reason Comments Coding Diagnosis Question Reason Comments Recheck 3 month follow up Reason Comments Medication Problem Reason Comments Orders Insurance Authorization Reason Comments Forms for Diabetic Shoes Reason Comments Follow Up All Clear Reason Comments Appointment Reason Onset Date Comments Transition Of Care 01/01/[address] [facility] Discharge 12/06/22 Reason Comments Refill Request Reason Comments Patient Question Reason Onset Date Comments Refill Request 02/02/2023 Reason Comments Follow Up Post 30 [facility] Care Teams (unrecognized sec tion and content) Latrine Cleaner Relationship Specialty Start Date End Date Nehemiah Thomas MD [address] [facility] [place] [address] PCP - General Internal Medicine 05/07/14 Pelon, Eastham S [address] [place] [address] Physician Cardiology 06/25/18 Latrine Cleaner Relationship Specialty Start Date End Date Nehemiah Thomas MD [address] [facility] [address] PCP - General Internal Medicine 05/07/14 Pelon, Kj S [address] [place] [address] Physician Cardiology 06/25/18 Latrine Cleaner Relationship Specialty Start Date End Date Nehemiah Thomas MD [address] [facility] [address] PCP - General Internal Medicine 05/07/14 Pelon, Kj S [address] [place] [address] Physician Cardiology 06/25/18 Latrine Cleaner Relationship Specialty Start Date End Date Nehemiah Thomas MD [address] [facility] [address] PCP - General Internal Medicine 05/07/14 Pelon, Kj S [address] [place] [address] Physician Cardiology 06/25/18 Latrine Cleaner Relationship Specialty Start Date End Date Nehemiah Thomas MD [address] [facility] [address] PCP - General Internal Medicine 05/07/14 Pelon, Eastham S [address] [place] [address] Physician Cardiology 06/25/18 Latrine Cleaner Relationship Specialty Start Date End Date Nehemiah Thomas MD [address] [facility] [address] PCP - General Internal Medicine 05/07/14 Pelon, Eastham S [address] [place] [address] Physician Cardiology 06/25/18 Latrine Cleaner Relationship Specialty Start Date End Date Nehemiah Thomas MD [address] [facility] [address] PCP - General Internal Medicine 05/07/14 Pelon, Kj S [address] [place] [address] Physician Cardiology 06/25/18 Latrine Cleaner Relationship Specialty Start Date End Date Nehemiah Thomas MD [address] [facility] [address] PCP - General Internal Medicine 05/07/14 Pelon, Kj S [address] [place] [address] Physician Cardiology 06/25/18 Latrine Cleaner Relationship Specialty Start Date End Date Nehemiah Thomas MD [address] [facility] [place] [address] PCP - General Internal Medicine 05/07/14 Pelon, Eastham S [address] [place] [address] Physician Cardiology 06/25/18 Latrine Cleaner Relationship Specialty Start Date End Date Nehemiah Thomas MD [address] [facility] [place] [address] PCP - General Internal Medicine 05/07/14 Pelon, Kj S [address] [place] [address] Physician Cardiology 06/25/18 Latrine Cleaner Relationship Specialty Start Date End Date Nehemiah Thomas MD [address] [facility] [place] [address] PCP - General Internal Medicine 05/07/14 Pelon, Eastham S [address] [place] [address] Physician Cardiology 06/25/18 Latrine Cleaner Relationship Specialty Start Date End Date Nehemiah Thomas MD [address] [facility] [place] [address] PCP - General Internal Medicine 05/07/14 Pelon, Kj S [address] [place] [address] Physician Cardiology 06/25/18 Latrine Cleaner Relationship Specialty Start Date End Date Nehemiah Thomas MD [address] [facility] [place] [address] PCP - General Internal Medicine 05/07/14 Pelon, Kj S [address] [place] [address] Physician Cardiology 06/25/18 Latrine Cleaner Relationship Specialty Start Date End Date Nehemiah Thomas MD [address] [facility] [place] [address] PCP - General Internal Medicine 05/07/14 Pelon, Eastham S [address] [place] [address] Physician Cardiology 06/25/18 Latrine Cleaner Relationship Specialty Start Date End Date Nehemiah Thomas MD [address] [facility] [place] [address] PCP - General Internal Medicine 05/07/14 Pelon, Kj S [address] [place] [address] Physician Cardiology 06/25/18 Latrine Cleaner Relationship Specialty Start Date End Date Nehemiah Thomas MD [address] [facility] [place] [address] PCP - General Internal Medicine 05/07/14 Pelon, Kj S [address] [place] [address] Physician Cardiology 06/25/18 Latrine Cleaner Relationship Specialty Start Date End Date Nehemiah Thomas MD [address] [facility] [place] [address] PCP - General Internal Medicine 05/07/14 Pelon, Eastham S [address] [place] [address] Physician Cardiology 06/25/18 Latrine Cleaner Relationship Specialty Start Date End Date Eliza Zamora MD [address] [facility] [place] [address] PCP - General Internal Medicine 01/28/22 Pelon, Eastham S [address] [place] [address] Physician Cardiology 06/25/18 Latrine Cleaner Relationship Specialty Start Date End Date Eliza Zamora MD [address] [facility] [place] [address] PCP - General Internal Medicine 01/28/22 Pelon, Kj S [address] [place] [address] Physician Cardiology 06/25/18 Latrine Cleaner Relationship Specialty Start Date End Date Eliza Zamora MD [address] [facility] [place] [address] PCP - General Internal Medicine 01/28/22 Pelon, Kj S [address] [place] [address] Physician Cardiology 06/25/18 Latrine Cleaner Relationship Specialty Start Date End Date Eliza Zamora MD [address] [facility] [place] [address] PCP - General Internal Medicine 01/28/22 Pelon, Kj S [address] [place] [address] Physician Cardiology 06/25/18 Latrine Cleaner Relationship Specialty Start Date End Date Eliza Zmaora MD [address] [facility] [place] [address] PCP - General Internal Medicine 01/28/22 Pelon, Kj S [address] [place] [address] Physician Cardiology 06/25/18 Latrine Cleaner Relationship Specialty Start Date End Date Eliza Zamora MD [address] [facility] [place] [address] PCP - General Internal Medicine 01/28/22 Pelon, Eastham S [address] [place] [address] Physician Cardiology 06/25/18 Latrine Cleaner Relationship Specialty Start Date End Date Eliza Zamora MD [address] [place] [address] PCP - General Internal Medicine 01/28/22 Pelon, Kj S [address] [place] [address] Physician Cardiology 06/25/18 Latrine Cleaner Relationship Specialty Start Date End Date Eliza Zamora MD [address] [facility] [address] PCP - General Internal Medicine 01/28/22 Pelon, Kj S [address] [place] [address] Physician Cardiology 06/25/18 Latrine Cleaner Relationship Specialty Start Date End Date Eliza Zamora MD [address] [facility] [address] PCP - General Internal Medicine 01/28/22 Pelon, Kj S [address] [place] [address] Physician Cardiology 06/25/18 Latrine Cleaner Relationship Specialty Start Date End Date Eliza Zamora MD [address] [facility] [address] PCP - General Internal Medicine 01/28/22 Pelon, Kj S [address] [place] [address] Physician Cardiology 06/25/18 Latrine Cleaner Relationship Specialty Start Date End Date Eliza Zamora MD [address] [facility] [address] PCP - General Internal Medicine 01/28/22 Pelon, Kj S [address] [facility] [address] [place] [address] Physician Cardiology 06/25/18 Latrine Cleaner Relationship Specialty Start Date End Date Eliza Zamora MD [address] [facility] [address] PCP - General Internal Medicine 01/28/22 Pelon, Kj S [address] [place] [address] Physician Cardiology 06/25/18 Latrine Cleaner Relationship Specialty Start Date End Date Eliza Zamora MD [address] [facility] [address] PCP - General Internal Medicine 01/28/22 Pelon, Eastham S [address] [facility] [place] [address] Physician Cardiology 06/25/18 Latrine Cleaner Relationship Specialty Start Date End Date Eliza Zamora MD [address] [facility] [address] PCP - General Internal Medicine 01/28/22 Pelon, Kj S [address] [place] [address] Physician Cardiology 06/25/18 Latrine Cleaner Relationship Specialty Start Date End Date Eliza Zamora MD [address] [facility] [address] PCP - General Internal Medicine 01/28/22 Pelon, Eastham S [address] [address] Physician Cardiology 06/25/18 Latrine Cleaner Relationship Specialty Start Date End Date Eliza Zamora MD [address] [place] [address] PCP - General Internal Medicine 01/28/22 Pelon, Kj S [address] [address] Physician Cardiology 06/25/18 Latrine Cleaner Relationship Specialty Start Date End Date Eliza Zamora MD [address] [place] [address] PCP - General Internal Medicine 01/28/22 Pelon, Eastham S [address] [address] Physician Cardiology 06/25/18 Latrine Cleaner Relationship Specialty Start Date End Date Eliza Zamora MD [address] [place] [address] PCP - General Internal Medicine 01/28/22 Pelon, Kj S [address] [address] Physician Cardiology 06/25/18 Latrine Cleaner Relationship Specialty Start Date End Date Eliza Zamora MD [address] [place] [address] PCP - General Internal Medicine 01/28/22 Kj Bird MD [address] [address] Physician Cardiology 06/25/18 Latrine Cleaner Relationship Specialty Start Date End Date Eliza Zamora MD [address] [place] [address] PCP - General Internal Medicine 01/28/22 Kj Bird MD [address] [address] Physician Cardiology 06/25/18 Latrine Cleaner Relationship Specialty Start Date End Date Eliza Zamora MD [address] [place] [address] PCP - General Internal Medicine 01/28/22 Kj Bird MD [address] [address] Physician Cardiology 06/25/18 Latrine Cleaner Relationship Specialty Start Date End Date Eliza Zamora MD [address] [place] [address] PCP - General Internal Medicine 01/28/22 Kj Bird MD [address] [address] Physician Cardiology 06/25/18 Latrine Cleaner Relationship Specialty Start Date End Date Eliza Zamora MD [address] [place] [address] PCP - General Internal Medicine 01/28/22 Kj Brid MD [address] [place] [address] Physician Cardiology 06/25/18 Jean Carlos Viera RN [address] [place] [address] Primary Care Mobile Phlebotomist Internal Medicine 12/07/22 01/06/23 Latrine Cleaner Relationship Specialty Start Date End Date Eliza Zamora MD [address] [place] [address] PCP - General Internal Medicine 01/28/22 Kj Bird MD [address] [address] Physician Cardiology 06/25/18 Jean Carlos Viera RN [address] [place] [address] Primary Care Mobile Phlebotomist Internal Medicine 12/07/22 01/06/23 Latrine Cleaner Relationship Specialty Start Date End Date Eliza Zamora MD [address] [place] [address] PCP - General Internal Medicine 01/28/22 Kj Bird MD [address] [address] Physician Cardiology 06/25/18 Jean Carlos Viera RN [address] [place] [address] Primary Care Mobile Phlebotomist Internal Medicine 12/07/22 01/06/23 Latrine Cleaner Relationship Specialty Start Date End Date Eliza Zamora MD [address] [place] [address] PCP - General Internal Medicine 01/28/22 Kj Bird MD [address] [place] [address] Physician Cardiology 06/25/18 FOR RECORDS PERTAINING TO PATIENTS WHO ARE OR HAVE BEEN ENROLLED IN A CHEMICAL DEPENDENCY/SUBSTANCEABUSE PROGRAM, SOME INFORMATION MAY BE OMITTED. This clinical summary was aggregated from multiple sources. Caution should be exercised in using it in the provision of clinical care. This summary normalizes information from multiple sources, and as a consequence, information in this document may materially change the coding, format and clinical context of patient data. In addition, data may be omitted in some cases. CLINICAL DECISIONS SHOULD BE BASED ON THE PRIMARY CLINICAL RECORDS. [employer] [facility]. provides no warranty or guarantee of the accuracy or completeness of information in this document.
== END | disposition home or self-care (01) ==
LOC: CT 13:49
PROVIDERS: PCP Internal Medicine; Referring Provider Internal Medicine Gastroenterology; Visit Provider Internal Medicine Gastroenterology
DX: R63.4 Abnormal weight loss (principal)
CPT/HCPCS: 74177; Q9967

== ENCOUNTER 2023-09-10 12:27 | Emergency (ER) | payer MEDICARE, MEDICAID, SELFPAY ==
[2023-09-10 12:29] VITALS: BP 128/63; PULSE 67; RESP 19; TEMP 36.2; O2SAT 100
--- NOTE | 2023-09-10 12:53 | EKG12_ITS ---
Test Reason : Blood Pressure : / mmHG Vent. Rate : 062 BPM Atrial Rate : 062 BPM P-R Int : 144 ms QRS Dur : 088 ms QT Int : 386 ms P-R-T Axes : 049 -03 093 degrees QTc Int : 391 ms Normal sinus rhythm Septal infarct (cited on or before 28-APR-2021) Abnormal ECG Confirmed by PERRY GOODSON, YOHANA ([id number]), field map editor MARIBELL FULTON ([id number]) on 09/12/2023 9:57:09 AM Referred By: Confirmed By:UMANG AMADOR MD
--- NOTE | 2023-09-10 13:17 | EX.ED.DYSGE1 ---
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 His speech is never normal but it has been worse lately. He has not been confused but has had some behavioral issues where he is swinging/swatting at the ones that help care for him which is unlike him. Today the furnace caretaker was there and he nearly fell, presumably due to his legs giving out due to weakness, the furnace caretaker caught him and he did not fall or injure himself or pass out. She checked his blood pressure and it was around 90/60 which is low for him. They deny any cough lately. He had a stroke which gave him weakness on the left side, usually it does not bad enough to give him disability, but in the past 2 weeks since not feeling well, he has been dragging his left leg more, basically his left weakness has been more noticeable, this has happened in the past when he had issues such as urinary tract infection. 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 TBI (traumatic brain injury) History of stroke Old myocardial infarction CHF (congestive heart failure) Cardiomyopathy in disease classified elsewhere Type 2 diabetes mellitus Pure hypercholesterolemia Essential hypertension Home Medications ?Medication ?Instructions ?Recorded ?Last Taken ?Type aspirin 81 mg chewable tablet 81 mg PO DAILY@0800 05/30/16 03/27/22 History simvastatin 20 mg tablet 20 mg PO QHS 05/30/16 04/27/21 History nitroglycerin 400 mcg/spray 0.4 mg translingual Q3-5M PRN 10/15/18 Unknown Rx translingual Cardiac/Chest Pain #4.9 grams capsaicin-methyl 1 applic topical TID PRN ARTHRITIS 04/28/21 04/27/21 History salicylate-menthol topical cream cholecalciferol (vitamin D3) 25 25 mcg PO DAILY 04/28/21 04/27/21 History mcg (1,000 unit) capsule oxybutynin chloride 10 mg 10 mg PO DAILY BLADDER 04/28/21 04/28/21 History tablet,extended release 24 hr cyanocobalamin (vitamin B-12) 1,000 mcg PO DAILY 09/29/21 Unknown History 1,000 mcg capsule fluticasone propionate 50 2 spray intranasal DAILY 09/29/21 Unknown History mcg/actuation nasal spray,suspension (Flonase Allergy Relief) glucosamine-chondroitin 250 mg-200 2 tab PO QPC 09/29/21 Unknown History mg tablet (Osteo Bi-Flex) docusate sodium 50 mg capsule 50 mg PO BID 03/27/22 Unknown History multivitamin (Daily Multi-Vitamin 1 tab PO DAILY 04/05/22 Unknown History tablet) famotidine 20 mg tablet 20 mg PO DAILY #90 tabs 07/25/22 Unknown Rx linaclotide 145 mcg capsule 145 mcg PO DAILY #30 caps 10/16/22 Unknown Rx (Linzess) lacosamide 50 mg tablet 50 mg PO BID 09/10/23 Unknown History Allergy/AdvReac Type Severity Reaction Status Date / Time cefdinir Allergy Rash Verified 09/10/23 13:27 nitrofurantoin (From Allergy Rash Verified 09/10/23 13:27 Macrobid) BANDAR Inhibitors AdvReac Severe hypotension, Verified 09/10/23 13:27 cough Family History Mother CAD (coronary artery disease) Diabetes Hypertension Father Myocardial infarction, Onset Age: 68 Surgical History Hx of inguinal hernia repair Social History Smoking Status: Never smoker alcohol intake: never substance use type: does not use caffeine: Yes Type: carbonated beverages ROS ROS ED Constitutional Constitutional ED: Reports malaise and weakness; Denies chills or fever(s) ENT ENT ED: Denies sore throat Cardiovascular Cardiovascular: Denies chest pain or palpitations Respiratory/Chest Respiratory/Chest: Denies cough or dyspnea Gastrointestinal Gastrointestinal: Denies abdominal pain, diarrhea, nausea or vomiting Genitourinary Genitourinary ED: Denies dysuria or hematuria Musculoskeletal Musculoskeletal: Denies back pain or neck pain Integumentary Denies abscess or rash Neurologic Neurologic: Reports as per HPI, abnormal speech and other Details: Pre-existing left-sided weakness, little worse than usual see HPI. No recent seizures. ; Denies confusion, convulsions, headache(s) or paresthesias Psychiatric Psychiatric: Reports other Details: agitation, see HPI EXAM Physical Exam Const Vital Signs: 09/10/23 12:29 09/10/23 12:52 09/10/23 15:26 Temperature 97.2 F L Temperature Source Temporal Pulse Rate 67 67 Pulse Rate [Lying] Pulse Rate [Sitting (for 1 minute prior to obtaining)] Pulse Rate [Standing (for 1 minute prior to obtaining)] Respiratory Rate 19 H 16 Respiratory Effort Normal Non-Labored Respiratory Pattern Normal Blood Pressure 128/63 H 125/77 H Blood Pressure [Lying] Blood Pressure [Sitting (for 1 minute prior to obtaining)] Blood Pressure [Standing (for 1 minute prior to obtaining)] Blood Pressure Mean 84 93 Blood Pressure Mean [Lying] Blood Pressure Mean [Sitting (for 1 minute prior to obtaining)] Blood Pressure Mean [Standing (for 1 minute prior to obtaining)] Pulse Ox 100 98 Oxygen Delivery Method Room Air Room Air 09/10/23 17:00 09/10/23 17:34 Temperature Temperature Source Pulse Rate 69 Pulse Rate [Lying] 79 Pulse Rate [Sitting (for 1 minute prior to obtaining)] 80 Pulse Rate [Standing (for 1 minute prior to obtaining)] 88 Respiratory Rate 18 Respiratory Effort Respiratory Pattern Blood Pressure 134/70 H Blood Pressure [Lying] 133/76 H Blood Pressure [Sitting (for 1 minute prior to obtaining)] 145/98 H Blood Pressure [Standing (for 1 minute prior to obtaining)] 142/78 H Blood Pressure Mean 91 Blood Pressure Mean [Lying] 95 Blood Pressure Mean [Sitting (for 1 minute prior to obtaining)] 113 Blood Pressure Mean [Standing (for 1 minute prior to obtaining)] 99 Pulse Ox 97 Oxygen Delivery Method Room Air Positive well nourished and well developed General Appearance ED: well developed and NAD HEENT Reports moist mucous membranes normocephalic and atraumatic Eyes PERRL and EOMs intact bilaterally Neck full ROM and supple Resp normal respiratory effort and clear to auscultation bilaterally Cardio regular rate, regular rhythm and no murmurs GI non-tender and non-distended Auscultation: normoactive bowel sounds Palpation: soft Back/Spine no CVA tenderness General Back: other FROM Extremity normal to inspection General Extremety ED: Negative for edema, pulses abnormal or tenderness General Extremity: Negative for edema or pulses abnormal Neuro CN's II-XII intact bilaterally and no sensory deficits noted Neuro Narrative: Dysarthria no aphasia. Nonfocal peripheral neurologic exam moves all 4 extremities and can hold them up. Sensorium / Orientation: awake and alert Motor Exam: strength 5/5 throughout Psych mental status grossly normal Psych Narrative: Cooperative. Grossly at baseline mental status according to furnace caretaker and family Skin no rashes or lesions noted and no wounds MDM MDM MDM Narrative Medical decision making narrative: Patient with nonspecific symptoms but also some acute on chronic focal weakness. 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 I reviewed the images and the report which I agree with, it is negative for any acute, stable encephalomalacia from old stroke. His labs are essentially normal with the exception of some prerenal azotemia consistent with dehydration which may be the cause of his symptoms today. His chest x-ray 1 view on my interpretation is negative for pneumonia radiology was in agreement and added that there may be a slight amount of free air, his abdominal exam is extremely benign and I do not think he has an acute abdomen in need of an emergent CT. His urine is negative for infection, troponin and EKG are negative/baseline, she was given some IV fluids and reevaluated. Doing better after fluids with negative orthostatics. Sister comfortable taking him home. Lab Data Attestation: I reviewed the patient's lab results. Labs: Laboratory Results - last 24 hr 09/10/23 09/10/23 13:15 14:05 WBC 7.0 RBC 5.06 Hgb 13.8 Hct 44.1 MCV 87.2 MCH 27.3 MCHC 31.3 L RDW Std Deviation 44.5 H RDW Coeff of Johnie 13.9 Plt Count 193 MPV 10.0 Immature Gran % (Auto) 0.300 Neut % (Auto) 60.9 Lymph % (Auto) 25.0 Stephenson % (Auto) 9.8 Eos % (Auto) 3.0 Baso % (Auto) 1.0 Absolute Neuts (auto) 4.2 Absolute Lymphs (auto) 1.74 Nucleated RBC % 0 Sodium 141 Potassium 4.1 Chloride 107 Carbon Dioxide 30.0 Anion Gap 4 L BUN 21 H Creatinine 0.99 Est GFR (MDRD) Af Amer 97 Est GFR (MDRD) Non-Af 80 BUN/Creatinine Ratio 21.3 H Glucose 109 H Calcium 9.1 Troponin I High Sens 5 Urine Color Straw Urine Clarity Clear Urine pH 6.5 Ur Specific [place] 1.010 Urine Protein Negative Urine Glucose (UA) Normal Urine Ketones Negative Urine Occult Blood 10 H Urine Nitrite Negative Urine Bilirubin Negative Urine Urobilinogen Normal Ur Leukocyte Esterase Negative Urine RBC 0 SEEN Urine WBC 0 SEEN Ur Squamous Epith Cells 0 SEEN Urine Bacteria 0 SEEN Urine Mucus 0 SEEN Radiography Diagnostic Testing: Clinical Impression(s) from Imaging Studies Brain CT 09/10/23 13:30 IMPRESSION: Stable large encephalomalacia involving the right frontal lobe. No acute abnormality is seen. Electronically Signed: Andrew Harris MD at 13:59 EDT , Chest X-Ray 09/10/23 13:38 IMPRESSION: Lungs are clear. Questionable small amount of free air beneath the right hemidiaphragm. Correlation with CT scan of the abdomen recommended if clinically indicated. Electronically Signed: Andrew Harris MD at 13:54 EDT , Rhythm Strip Rhythm Strip: Sinus Rhythm Rate: 62 Ectopy: None EKG Initial EKG: Attestation: I personally reviewed and interpreted this EKG as follows: Interpretation: Sinus Rhythm and No Acute Injury Pattern Prior EKG tracings: available for review Prior: Unchanged Discharge Plan Triage Chief Complaint: General Illness ED Provider: Ruperto Baker Dx/Rx/DC Orders Clinical Impression: Mild dehydration, Transient hypotension Instructions: ED Dehydration (Adult) Prescriptions: No Action cyanocobalamin (vitamin B-12) 1,000 mcg capsule 1,000 mcg PO DAILY fluticasone propionate [Flonase Allergy Relief] 50 mcg/actuation spray,suspension 2 spray intranasal DAILY Rx Instructions: administer into each nostril glucosamine-chondroitin [Osteo Bi-Flex] 250-200 mg tablet 2 tab PO QPC multivitamin [Daily Multi-Vitamin] Tablet 1 tab PO DAILY famotidine 20 mg tablet 20 mg PO DAILY Qty: 90 1RF simvastatin 20 MG tablet 20 mg PO QHS aspirin 81 MG tablet,chewable 81 mg PO DAILY@0800 oxybutynin chloride 10 mg tablet extended release 24hr 10 mg PO DAILY Patient Comments: Take 1 tablet by mouth once daily. cholecalciferol (vitamin D3) 25 mcg (1,000 unit) Capsule 25 mcg PO DAILY capsaicin-methyl prateek-menthol Cream 1 applic TOPICAL TID PRN (Reason: ARTHRITIS) Colace 50 mg Capsule 50 mg PO BID lacosamide 50 mg tablet 50 mg PO BID nitroglycerin 400 mcg/spray spray,non-aerosol 0.4 mg translingual Q3-5M PRN (Reason: Cardiac/Chest Pain) Qty: 4.9 1RF Linzess 145 mcg capsule 145 mcg PO DAILY Qty: 30 11RF Primary Care Provider: Mckenzie Bartlett Referrals: Mckenzie Bartlett MD [Primary Care Provider] - 3-5 Days Print Language: Maldivian Disposition Disposition: Home, Self Care
[2023-09-10 13:24] LABS: Absolute Lymphocyte Count 1.74 X10^3/uL (0.83-4.51); Absolute Neutrophil Count 4.2 X10^3/uL (2.0-7.7); Basophil# 0.07 X10^3/uL; Eosinophil# 0.21 X10^3/uL; Hematocrit 44.1 % (40-54); Hemoglobin 13.8 g/dL (13.0-16.5); Lymphocyte # 1.74 X10^3/ul (0.83-4.51); Mean Corp Hgb Conc 31.3 g/dL (32-36); Mean Corpuscular Hgb 27.3 pg (27.0-32.0); Mean Corpuscular Volume 87.2 fL (80-94); Monocyte# 0.68 X10^3/uL; Monocyte% 9.8 % (0-10); NRBC Flagged by Analyzer 0 % (0-5); Neutrophil # 4.23 X10^3/uL (2.7-7.7); Neutrophil % 60.9 % (47-70); Platelet Count 193 K/mm3 (150-450); RBC Distribution Width CV 13.9 % (11.6-14.6); RBC Distribution Width SD 44.5 fl (35.1-43.9); Red Blood Count 5.06 M/mm3 (4.6-6.2)
--- NOTE | 2023-09-10 13:30 | CT_ITS ---
STUDY: CT BRAIN WITHOUT CONTRAST REASON FOR EXAM: Male, 68 years old. Altered mental status following a fall. RADIATION DOSAGE (If Supplied By Facility): CTDIvol = ( 44.99 ) mGy, DLP = ( 762.36 ) mGycm TECHNIQUE: Transaxial CT imaging of the brain was performed without administration of intravenous contrast material. Individualized dose optimization techniques were used for this CT. COMPARISON: Comparison is made with prior study dated June 26, 2022. FINDINGS: Normal soft tissue structures. Normal calvarium. Once again, there is evidence of a large right frontal encephalomalacia from prior stroke. Mild degree of ipsilateral dilatation of the right anterior horn. There are areas of decreased attenuation within the white matter tracts of the supratentorial brain, consistent with microvascular disease changes. Normal basal ganglia and thalami. Normal brainstem. Normal cerebellum. There is no intracranial hemorrhage. There are no findings of an acute ischemic infarction. Atherosclerotic calcification of the cavernous portions of the internal carotid arteries bilaterally. Normal visualized paranasal sinuses. CT/Brain/Head without Contrast IMPRESSION: Stable large encephalomalacia involving the right frontal lobe. No acute abnormality is seen. Electronically Signed: Andrew Harris MD at 13:59 EDT ,
--- NOTE | 2023-09-10 13:38 | RAD_ITS ---
STUDY: X-RAY CHEST REASON FOR EXAM: Male, 68 years old. Altered/weakness TECHNIQUE: Single AP portable view of the chest. COMPARISON: Comparison is made with prior study dated June 26, 2022. FINDINGS: The lungs are clear and expanded. There is no demonstrated pleural abnormality. Normal size heart. Normal mediastinum and quique. Normal visualized pulmonary arteries. There is atherosclerotic calcification of the aortic arch with tortuosity. There are diffuse degenerative changes of the visualized thoracic spine. There is degenerative osteoarthritis of the bilateral shoulders. Gaseous distention of bowel loops below the hemidiaphragms. Possible free air beneath the right hemidiaphragm. Correlation with CT scan of the abdomen recommended if clinically indicated. RAD/Chest 1 View (Portable) IMPRESSION: Lungs are clear. Questionable small amount of free air beneath the right hemidiaphragm. Correlation with CT scan of the abdomen recommended if clinically indicated. Electronically Signed: Andrew Harris MD at 13:54 EDT ,
[2023-09-10 13:40] LABS: Anion Gap 4 (5-15); BUN 21 mg/dL (7-18); BUN/Creat Ratio 21.3 RATIO (10-20); Calcium,Total 9.1 mg/dL (8.5-10.1); Chloride 107 mmol/L (98-107); Creatinine, Serum 0.99 mg/dL (0.70-1.30); EST Glomerular Filtration Rate 80 mL/min (>60); Est Glom Filt Rate - Afr Amer 97 mL/min (>60); Glucose 109 mg/dL (74-106); Potassium 4.1 mmol/L (3.5-5.1); Sodium Level 141 mmol/L (136-145); Troponin-I HS 5 pg/mL (3.0-78.0)
[2023-09-10 14:15] LABS: Bacteria 0 SEEN /hpf (None Seen); Mucous, Urine 0 SEEN /hpf (<or=2+); Red Blood Cells-Urine 0 SEEN /hpf (0-5); Squamous Epithelial Cells - UA 0 SEEN /hpf (0-5); White Blood Cells 0 SEEN /hpf (0-5)
[2023-09-10 14:26] LABS: Color, Urine Straw (Yellow); Glucose, Dipstick Normal (Normal); Ketone-Dipstick Negative (Negative); Leukocyte Esterase-Dipstick Negative /ul (Negative); Nitrite-Dipstick Negative (Negative); Occult Blood-Urine 10 /ul (Negative); Protein-Dipstick Negative (Negative); Urine Bilirubin Dipstick Negative (Negative); Urine Clarity Clear (Clear); Urine Urobilinogen Normal (Normal); Urine pH 6.5 (5.0 - 8.0)
[2023-09-10] MEDS: 0.9% Normal Saline (500mL Bag) 500 ML 999 ML IV (15:25)
[2023-09-10 15:26] VITALS: BP 125/77; PULSE 67; RESP 16; O2SAT 98
[2023-09-10 17:00] VITALS: BP 134/70; PULSE 69; RESP 18; O2SAT 97
[2023-09-10 17:34] VITALS: BP 133/76; BP 142/78; BP 145/98; PULSE 79; PULSE 80; PULSE 88
[2023-09-10 18:09] VITALS: TEMP 36.6; O2SAT 97
== END 2023-09-10 18:10 | disposition home or self-care (01) ==
PROVIDERS: Emergency Provider Emergency Medicine; PCP Internal Medicine; Visit Provider Emergency Medicine
DX: E86.0 Dehydration (principal); I69.354 Hemiplegia and hemiparesis following cerebral infarction affecting left non-dominant side; G40.109 Localization-related (focal) (partial) symptomatic epilepsy and epileptic syndromes with simple partial seizures, not intractable, without status epilepticus; I10 Essential (primary) hypertension; I69.398 Other sequelae of cerebral infarction; I95.89 Other hypotension; E78.00 Pure hypercholesterolemia, unspecified; I25.10 Atherosclerotic heart disease of native coronary artery without angina pectoris; Z79.82 Long term (current) use of aspirin; Z79.899 Other long term (current) drug therapy
CPT/HCPCS: 70450; 71045; 80048; 81001; 84484; 85025; 93005; 96360; 96361; 99284; J7040

== ENCOUNTER → 2023-09-26 | Outpatient (CLI) | payer MEDICARE, MEDICAID, SELFPAY ==
[2023-09-26 10:34] LABS: Vitamin B12 1583 pg/mL (211-911)
[2023-09-26 10:49] LABS: Thyroid Stim Hormone (TSH) 1.63 uIU/mL (0.358-3.74)
[2023-09-26 13:10] LABS: Ammonia < 10.0 umol/L (11-32)
[2023-09-28 11:09] LABS: Vitamin D 1,25-Dihydroxy 52.7 pg/mL (24.8-81.5)
[2023-09-29 00:07] LABS: Vitamin B1, Thiamine 147.9 nmol/L (66.5-200.0)
== END | disposition home or self-care (01) ==
PROVIDERS: PCP Internal Medicine; Referring Provider Psychiatry & Neurology Neurology; Visit Provider Psychiatry & Neurology Neurology
DX: G40.909 Epilepsy, unspecified, not intractable, without status epilepticus (principal); I50.9 Heart failure, unspecified
CPT/HCPCS: 36415; 82140; 82607; 82652; 82746; 84425; 84443

== ENCOUNTER 2023-10-16 12:26 | Day surgery (SDC) | payer MEDICARE, MEDICAID, SELFPAY ==
[2023-10-16] VITALS (8 sets, daily range): BP systolic 106–135; BP diastolic 66–71; PULSE 60–63; RESP 16; TEMP 36.1–36.9; O2SAT 98–100; BMI 18.0
--- NOTE | 2023-10-16 12:54 | HP.PCM_ITS ---
History and Physical Date of Admission: 10/16/23 INNA ORTIZ, is a 68 M who presents to the office today for follow up. BGI established 11.24. for weight loss and epigastric pain. Caregiver is concerned about Metformin use.? Biochemical?ESR, haptoglobin, amylase, PSA, LDH, CRP, BANDAR, A1c, CPK, lipase, ceruloplasmin, ferritin, ammonia, copper, aldolase, CA 19-9, CEA, coag, GAME, JESUSITA comp, DOMINICK, ANCA, celiac, ASM, AMA without pertinent abnormality.? Stool elastase, c.difficile (formed), EP, O/P, giardia WNL. ?Calprotectin H121, lactoferrin +? OV 12.. for unintentional weight loss of 20lbs in 9 months. Reports good appetite eating 3 full meals/day, snacks and protein supplement. Occasionally p oints to epigastrium an says it hurts.?CT abd/pel 03.06.22?enlarged prostate with evidence of central density calcification.?EGD and colonoscopy 2.03.20?EGD irregular Zline 37cm.?Colonoscopy 5mm rectal TA polyp.? OV 2.15.23 recommend daily MiraLAX to address constipation?Capsule endoscopy 06.20.22?enlarged gastric folds; poor visibility of small bowel; mild erythema of small bowel.?Biochemical 5.3.23?gastrin H433? OV 5.30.23 Stop omeprazole, start famotidine. Stop colestipol, start fiber.? 119 Pt's sister reports ongoing constipation. Gives him Miralax and Dulcolax but still has 2-3 days inbetween BM. No abdominal pain reported or heartburn. OV 8.8.24 sister reports continued symptoms from previous visit and that she has found spinach helps with his constipation. Sister reports gas and bloating due to pt inhaling his food recently and eating too fast. ROS Const Constitutional: Positive for fatigue, headache(s) and weight change (weight gain); No fever(s) ENT ENT: Positive for headache(s) and difficulty swallowing Cardio Cardiology: Positive for leg pain with exertion Gastro GI: Positive for bloating, constipation, difficulty swallowing and excessive flatus; No abdominal pain, belching, change in bowel habits, change in stool character, coffee ground emesis, cramping, diarrhea, heartburn, feeling full early, incontinent of stools, Vomiting blood/hematemesis, Blood in stool, loose stools, Black,tarry stools, nausea/dyspepsia, pain with swallowing, vomiting or other Musc Musculoskeletal: Positive for abnormal gait, joint pain, back pain, muscle weakness, stiffness, Arthritis and leg pain with exertion Skin Skin: Positive for itchy eyes; No yellowing of the eye Neuro Neurology: Positive for abnormal gait and headache(s) Psych Psychiatric: Positive for anxiety, Positive for depression and Positive for inattentiveness Endo Endocrine: Positive for fatigue and weight change (weight gain) Aller/Imm Allergy/Immunologic: Positive for itchy eyes Tyler/Lymp Hematologic/Lymphatic: Positive for easy bleeding and easy bruising Exam Const General: cooperative, comfortable and no acute distress Nutritional Appearance: underweight Orientation: alert and awake Other: nonverbal Assessment and Plan Assessment and Plan (1) Abnormal gastric folds: Status: Acute Plan: 67 yr old male with unexplained weight loss, no GI etiology found with labs/endoscopies Stop omeprazole, switch to famotidine Recheck gastrin level in 2 mos Stop colestipol since hasn't help with abd pain, and he already has constipation, and now pruritus Try FiberChoice tablets daily They will be seeing neuro at [facility] in a few weeks f/u 2 mos, send portal msg or call sooner if needed (2) Weight loss: Status: Chronic Plan: Due to the continued change in bowel habits we will get a CT scan of the pelvis with p.o. and IV contrast. I suspect a lot of his issues may be secondary to chronic idiopathic constipation. However he does have a history of BPH and has been having some symptoms of urinary outlet. We will check urinalysis, CMP, CBC along with his CT scan abdomen pelvis. (3) Constipation: Status: Chronic Plan: see above I have examined the patient and the H&P has been reviewed. There are no clinical changes since date of exam.
[2023-10-16] MEDS: Lactated Ringers 1,000 ML 15 ML IV (13:09)
--- NOTE | 2023-10-16 13:26 | PCM.PRE.AN2 ---
ASA Classification* ASA Classification ASA Classification: 3 Assessment & Plan Anesthesia* Anesthesia Assessment Anesthesia Assessment: Discussed sedation and/or anesthesia options, risks, benefits, and alternatives with patient/parents/legal guardian/POA. Questions invited. The patient/parents/legal guardian/POA seems to understand and agrees to proceed with anesthesia plan. Reviewed the physical assessment, medical history, allergy history and patient home medications list prior to surgery/procedure/anesthetic and documented any changes. Performed airway and anesthesia risk assessments. Anesthesia Type Anesthesia Type: MAC History Source History Obtained from:: Patient and Chart Anesthesia Focused Assessment* Temperature: 98.5 F Pulse Rate: 63 Blood Pressure: 135/69 Respiratory Rate: 16 Pulse Ox: 100 Oxygen Delivery Method: Room Air Airway Assessment Mouth opens: 2 cm Mallampati Score: IV Teeth Condition: Loose (One loose tooth on the lower jaw.) Neck Range of motion (ROM): Limited ROM (Decrease extension. Possible due to poor cooperation.) Focused Labs Anesthesia Preop lab: CBC WBC 7.0 K/mm3 (4.4-11.0) 09/10/23 13:15 RBC 5.06 M/mm3 (4.6-6.2) 09/10/23 13:15 Hgb 13.8 g/dL (13.0-16.5) 09/10/23 13:15 Hct 44.1 % (40-54) 09/10/23 13:15 Plt Count 193 K/mm3 (150-450) 09/10/23 13:15 CHEMISTRY Potassium 4.1 mmol/L (3.5-5.1) 09/10/23 13:15 Sodium 141 mmol/L (136-145) 09/10/23 13:15 BUN 21 mg/dL (7-18) H 09/10/23 13:15 Creatinine 0.99 mg/dL (0.70-1.30) 09/10/23 13:15 Glucose 109 mg/dL (74-106) H 09/10/23 13:15 POC Glucose 101 mg/dL (74-106) 03/29/22 10:17 TSH 1.63 uIU/mL (0.358-3.74) 09/26/23 07:08 COAG PT 13.5 SECONDS (11.7-14.9) 04/28/21 14:25 Pre-Assessment Diagnosis/Proposed Procedure Planned Operative Procedure(s): EGD Anesthesia History 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 When Was Last Pacemaker Check QUESTION #4 FULL TEXT: You/Your Family Experience fever (hyperthermia) with Anesthesia Last Oral Intake Last Oral intake: Last Oral Intake NPO since 07:30 10/16/23 12:51 Meds taken in AM with sips of Yes 10/16/23 12:51 water? 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 Female No 10/11/23 12:26 HX of Motion Sickness No 10/11/23 12:26 HX of N/V After Surgery No 10/11/23 12:26 Non-Smoker Yes 10/11/23 12:26 Duration of Surgery greater No 10/11/23 12:26 than 60 minutes Number of Risk Factors 1 10/11/23 12:26 PONV Score Low Risk 10/11/23 12:26 Height & Weight Height & Weight: Anesthesia: Height & Weight Height 5 ft 9 in 10/16/23 12:51 Weight: 55.5 kg 10/16/23 12:51 Body Mass Index (BMI) 18.0 10/16/23 12:51 Respiratory Assessment Respiratory Assessment - 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 Has anyone observed you stop No 10/11/23 12:26 breathing during sleep? STOP Results Negative 10/11/23 12:26 QUESTION #5 FULL TEXT : Do you snore loudly (louder than talking or can be heard through closed doors)? 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 Specify any problems Hx of Preganancy in last 3 N/A 10/11/23 12:26 Months Nurse Filling Out Transfusion NBUCHER 10/11/23 12:26 & Questions: Date: 10/11/23 10/11/23 12:26 Time: 12:29 10/11/23 12:26 Patient unable to answer at this time (ie. confused, unrespo /Reproduction History /Reproductive History - scale assembly set up worker: /Reproductive Hx- scale assembly set up worker Hx Now No 10/11/23 12:26 Gestational Age (in weeks): EDC: Hx Hx Para Hx Section SAB No 10/11/23 12:26 Active Medications Active Medications: Current Medications Generic Name Dose Route Start Last Admin Trade Name Freq PRN Reason Stop Dose Admin Lactated Ringer's 1,000 mls @ 15 mls/hr 10/16/23 12:45 10/16/23 13:09 IV 15 mls/hr .Q48H JOLIE Administration PFSH Medical History Concave nail Bruising Diabetes Back pain Injury of head and neck Seizures Gastric reflux Chronic cough Cardiology follow-up encounter History of echocardiogram History of heart attack Chest pain Urinary incontinence Gait abnormality Acid indigestion Overactive bladder Atherosclerosis of coronary artery 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 TBI (traumatic brain injury) History of stroke Old myocardial infarction CHF (congestive heart failure) Cardiomyopathy in disease classified elsewhere Type 2 diabetes mellitus Pure hypercholesterolemia Essential hypertension Home Medications ?Medication ?Instructions ?Recorded ?Last Taken ?Type aspirin 81 mg chewable tablet 81 mg PO DAILY@0800 05/30/16 03/27/22 History simvastatin 20 mg tablet 20 mg PO QHS 05/30/16 04/27/21 History nitroglycerin 400 mcg/spray 0.4 mg translingual Q3-5M PRN 10/15/18 Unknown Rx translingual Cardiac/Chest Pain #4.9 grams oxybutynin chloride 10 mg 10 mg PO DAILY BLADDER 04/28/21 04/28/21 History tablet,extended release 24 hr cyanocobalamin (vitamin B-12) 1,000 mcg PO DAILY 09/29/21 Unknown History 1,000 mcg capsule fluticasone propionate 50 2 spray intranasal DAILY 09/29/21 Unknown History mcg/actuation nasal spray,suspension (Flonase Allergy Relief) glucosamine-chondroitin 250 mg-200 1 tab PO QPC 09/29/21 Unknown History mg tablet (Osteo Bi-Flex) docusate sodium 100 mg capsule 200 mg PO DAILY 09/25/23 Unknown History docusate sodium 50 mg capsule 200 mg PO DAILY 09/25/23 Unknown History lacosamide 50 mg tablet 50 mg PO BID #60 tabs 09/25/23 10/16/23 07:30 Rx midazolam 5 mg/spray (0.1 mL) See Rx Instructions .Route 09/25/23 Unknown Rx nasal spray (Nayzilam) .COMPLEX #2 ea famotidine 20 mg tablet 20 mg PO DAILY #90 tabs 10/08/23 10/16/23 07:30 Rx Allergy/AdvReac Type Severity Reaction Status Date / Time cefdinir Allergy Rash Verified 10/16/23 12:47 nitrofurantoin (From Allergy Rash Verified 10/16/23 12:47 Macrobid) BANDAR Inhibitors AdvReac Severe hypotension, Verified 10/16/23 12:47 cough Family History Mother CAD (coronary artery disease) Diabetes Hypertension Father Myocardial infarction, Onset Age: 68 Surgical History History of esophagogastroduodenoscopy (EGD) History of colonoscopy Hx of inguinal hernia repair Social History Smoking Status: Never smoker alcohol intake: never substance use type: does not use caffeine: Yes Type: carbonated beverages Review of Systems (Anesthesia) ROS Narrative System reviewed and no additional complaints, except as documented.
--- NOTE | 2023-10-16 13:30 | EGD_PTH ---
PATIENT: INNA ORTIZ LOC: EN U#:[id number] AGE/SX: 68/M ROOM: RE10/16/[address]: Dr. Diomedes Bey DO : 1955 BED: DIS: 10/16/2023 SPEC #: [id number] RECD: 10/16/23 16:49 STATUS: WILLY SANDY #: [id number] JUAN: 10/16/23 13:[address]: Diomedes Bey DEPT: SURGICAL PATHOLOGY RECD BY: Anderson Montiel ENTERED: 10/17/23 08:47 SP TYPE: EGD BIOPSY MAGDIEL DR: Dr. Mckenzie Bartlett MD Tissues: A - Duodenum, NOS B - Gastric mucous membrane Procedures: Surgery Specimen Level IV HEADER OPERATION: EGD biopsy and dilation PRE-OP DIAGNOSIS: Abnormal gastric folds, weight loss, diarrhea TISSUE SUBMITTED: A- Duodenum biopsy, B- Gastric body biopsy MICROSCOPIC DIAGNOSIS A. Duodenum, biopsy: Fragments of duodenal mucosa, no pathologic diagnosis. B. Gastric body, biopsy: Mild gastritis. See microscopic description and comment. 10/18/2023 COMMENT B. The results of immunohistochemistry for Helicobacter pylori will be reported separately ([id number]). MICROSCOPIC DESCRIPTION Slides are reviewed. B. The specimen shows fragments of gastric mucosa with chronic inflammatory cell infiltrates in the lamina propria consisting of lymphocytes and plasma cells, consistent with mild chronic gastritis. GROSS DESCRIPTION A. Received in fixative is one container labeled with the patient's name and designated Duodenum biopsy. The specimen consists of two irregular fragments of light koenig soft tissue that in aggregate measure 0.6 x 0.5 x 0.1 cm. The specimen is totally submitted in one cassette. B. Received in fixative is one container labeled with the patient's name and designated Gastric body. The specimen consists of one irregular fragment of light koenig soft tissue that measures 0.3 x 0.3 x 0.1 cm. The specimen is totally submitted in one cassette. WINDYJose 10/17/2023 TC:3 CPT:57963p8
--- NOTE | 2023-10-16 13:30 | IMM_PTH ---
PATIENT: INNA ORTIZ LOC: EN U#:[id number] AGE/SX: 68/M ROOM: RE10/16/[address]: Dr. Diomedes Bey DO : 1955 BED: DIS: 10/16/2023 SPEC #: [id number] RECD: 10/17/23 08:11 STATUS: WILLY REQ #: [id number] JUAN: 10/16/23 13:[address]: Diomedes Bey DEPT: IMMUNOHISTOCHEMISTRY RECD BY: Darren Freeman ENTERED: 10/17/23 08:13 SP TYPE: IMMUNO OTHR DR: Dr. Mckenzie Bartlett MD Tissues: B - Gastric mucous membrane Procedures: H Pylori (initial) PHYSICIAN & INSTITUTION [place] [id number] SPECIMEN INFORMATION: Tissue Source: B- Gastric body biopsy Clinical Info: Abnormal gastric folds, weight loss, diarrhea Specimen Number: [id number] CPT code: 97425 METHODOLOGY: Deparaffinized sections of prefer/formalin-fixed tissue or PAP/DQ stained slides are incubated with monoclonal/polyclonal antibodies/oligonucleotide probes. Localization is made via biotin free immunoperoxidase method. Appropriate controls are performed and reacted as expected. Results on target cell population are indicated in the following table: RESULTS: ANTIBODY / CLONE RESULT Block B H Pylori (polyclonal) negative These tests were developed and their performance characteristics determined by [facility]. They may not have been cleared or approved by the U.S. Food and Drug Administration. The FDA has determined that such clearance or approval is not necessary. The above immunohistochemical/dualISH markers are ordered and reviewed by the Pathologist. INTERPRETATION: B. Gastric body, biopsy: Negative for Helicobacter pylori organisms. WINDY/ 10/18/2023
[2023-10-16 14:01] LABS: Bedside Glucose 86 mg/dL (74-106)
--- NOTE | 2023-10-16 14:26 | PCM.POST.ANE ---
Anesthesia: Postop Eval I Current Vital Signs Temperature: 97 F Pulse Rate: 62 Blood Pressure: 109/66 Respiratory Rate: 16 Pulse Ox: 98 Oxygen Delivery Method: Room Air Assessment Airway patent: Yes Spontaneous unlabored respirations: Yes Mental status: Awake and Calm nausea: No Vomiting: No Anesthesia Complication: No Fluid Hydration Crystalloid volume administer (ml): 400 Total IV fluid infused: 400 Progress Note Anesthesia document: Postop Eval 1 completed: Yes
--- NOTE | 2023-10-16 14:27 | OP.CCLET_ITS ---
10/16/2023 Mckenzie Batrlett [address] [place] [address] Re : Upper GI endoscopy procedure for Hi White Dear Dr. Bartlett This procedure was performed on Monday, October 16, 2023. My impressions and recommendations are as follows: Impressions : - Benign-appearing esophageal stenosis. Dilated. - Erythematous mucosa in the gastric body. Biopsied. - Erythematous duodenopathy. Biopsied. Recommendations : - Discharge patient to home. - Resume previous diet. - Continue present medications. - Await pathology results. - Gastric emptying study My findings are described in the full procedure note, which is enclosed. If I can be of further assistance, please feel free to contact me at . Sincerely, Diomedes Bey, 10/16/2023 2:26:44 PM This report has been signed electronically.
--- NOTE | 2023-10-16 14:27 | OP.EGD_ITS ---
Patient Name: Hi White Procedure Date: 10/16/2023 1:54 PM Date of : 1955 Age: 68 Procedure: Upper GI endoscopy Indications: Dysphagia Providers: Diomedes Bey DO Medicines: Monitored Anesthesia Care Patient Profile: This is a 68 year old male. Refer to note in patient chart for documentation of history and physical. Patient has symptoms of chronic dysphagia. Complications: No immediate complications. Procedure: Pre-Anesthesia Assessment: - Prior to the procedure, a History and Physical was performed, and patient medications and allergies were reviewed. The patient is competent. The risks and benefits of the procedure and the sedation options and risks were discussed with the patient. All questions were answered and informed consent was obtained. Patient identification and proposed procedure were verified by the physician in the pre-procedure area. Mental Status Examination: alert and oriented. Airway Examination: normal oropharyngeal airway and neck mobility. Respiratory Examination: clear to auscultation. CV Examination: normal. Prophylactic Antibiotics: The patient does not require prophylactic antibiotics. Prior Anticoagulants: The patient has taken no anticoagulant or antiplatelet agents except for NSAID medication. ASA Grade Assessment: II - A patient with mild systemic disease. After reviewing the risks and benefits, the patient was deemed in satisfactory condition to undergo the procedure. The anesthesia plan was to use monitored anesthesia care (MAC). Immediately prior to administration of medications, the patient was re-assessed for adequacy to receive sedatives. The heart rate, respiratory rate, oxygen saturations, blood pressure, adequacy of pulmonary ventilation, and response to care were monitored throughout the procedure. The physical status of the patient was re-assessed after the procedure. After obtaining informed consent, the endoscope was passed under direct vision. Throughout the procedure, the patient's blood pressure, pulse, and oxygen saturations were monitored continuously. The gastroscope was introduced through the mouth, and advanced to the second part of duodenum. The upper GI endoscopy was accomplished without difficulty. The patient tolerated the procedure well. Scope In: 2:11:04 PM Scope Out: 2:16:52 PM Total Procedure Duration Time 0 hours 5 minutes 48 seconds Findings: One benign-appearing, intrinsic moderate stenosis was found 20 to 23 cm from the incisors. The stenosis was traversed. A guidewire was placed and the scope was withdrawn. Dilation was performed with a Savary dilator with no resistance at 54 Fr. The dilation site was examined and showed moderate mucosal disruption. Estimated blood loss was minimal. Localized mildly erythematous mucosa without bleeding was found in the gastric body. Biopsies were taken with a cold forceps for histology. Verification of patient identification for the specimen was done. Biopsies were taken with a cold forceps for Helicobacter pylori testing. Verification of patient identification for the specimen was done. Estimated blood loss was minimal. Patchy mildly erythematous mucosa without active bleeding and with no stigmata of bleeding was found in the duodenal bulb. Biopsies were taken with a cold forceps for histology. Verification of patient identification for the specimen was done. Estimated blood loss was minimal. Impression: - Benign-appearing esophageal stenosis. Dilated. - Erythematous mucosa in the gastric body. Biopsied. - Erythematous duodenopathy. Biopsied. Recommendation: - Discharge patient to home. - Resume previous diet. - Continue present medications. - Await pathology results. - Gastric emptying study Procedure Code(s): --- Professional --- 77299, Esophagogastroduodenoscopy, flexible, transoral; with insertion of guide wire followed by passage of dilator(s) through esophagus over guide wire 54706, 59,51, Esophagogastroduodenoscopy, flexible, transoral; with biopsy, single or multiple CPT copyright 2021 [employer]. All rights reserved. The codes documented in this report are preliminary and upon unionmelt operator review may be revised to meet current compliance requirements. Diomedes Bey DO 10/16/2023 2:26:44 PM This report has been signed electronically. Number of Addenda: 0 Note Initiated On: 10/16/2023 1:54 PM
--- NOTE | 2023-10-16 16:55 | PCM.POSTANE2 ---
Anesthesia Postop Eval I Sum Postop Eval Completion status Anesthesia document: Postop Eval 1 completed: Yes Anesthesia Postop Eval I Summary Anesthesia Postop Eval I Summary: Anesthesia Postop Eval I: Assessment Summary Airway patent Yes 10/16/23 14:26 [email or web address] Spontaneous unlabored Yes 10/16/23 14:26 [email or web address] respirations Mental status Awake,Calm 10/16/23 14:26 [email or web address] nausea No 10/16/23 14:26 [email or web address] Vomiting No 10/16/23 14:26 [email or web address] Anesthesia Postop Eval I: Fluid Summary Crystalloid volume administer 400 10/16/23 14:26 [email or web address] (ml) Colloids volume administered ( ml) Blood Product volume administered (ml) Total IV fluid infused 400 10/16/23 14:26 [email or web address] Anesthesia Postop Eval I: Summary Notes Anesthesia Complication No 10/16/23 14:26 [email or web address] Anesthesia Complication Comment: Post-operative progress note Anesthesia: Postop Eval II Evaluation Mental status: Awake and Calm Pain Level: 0 nausea: No Vomiting: No Complications Anesthesia Complication: No
== END 2023-10-16 15:07 | disposition home or self-care (01) ==
LOC: EN 12:27 → AC 12:30
PROVIDERS: PCP Internal Medicine; Referring Provider Internal Medicine; Visit Provider Internal Medicine Gastroenterology
PROC: 0DJ08ZZ Inspection of Upper Intestinal Tract, Via Natural or Artificial Opening Endoscopic (ICD-10-PCS; CPT 43235; principal; 2023-10-16 13:25)
DX: K22.2 Esophageal obstruction (principal); K29.60 Other gastritis without bleeding; K31.89 Other diseases of stomach and duodenum; K59.09 Other constipation; R63.4 Abnormal weight loss; R62.50 Unspecified lack of expected normal physiological development in childhood; I25.2 Old myocardial infarction; Z68.1 Body mass index [BMI] 19.9 or less, adult; Z79.82 Long term (current) use of aspirin; Z79.899 Other long term (current) drug therapy; Z87.820 Personal history of traumatic brain injury
CPT/HCPCS: 43248; 43239; 82962; 88305; 88342; J7120; C1769; J2405

== ENCOUNTER → 2023-11-14 | Outpatient (CLI) | payer MEDICARE, MEDICAID, SELFPAY ==
--- NOTE | 2023-11-14 12:09 | NM_ITS ---
CLINICAL: 68-year-old male with history of abdominal pain. SEMI-SOLID PHASE 99m Tc SULFUR COLLOID GASTRIC EMPTYING STUDY COMPARISON: None available FINDINGS: The patient was administered 1.0 mCi of 99m Tc sulfur colloid mixed with oatmeal and consumed per os. Image acquisitions in the anterior-posterior projections were obtained for 60 minutes. There is prompt visualization of the stomach. There is no gastroesophageal reflux identified. First order kinetics are maintained throughout the duration of the acquisitions. The T ? linear fit was extrapolated to be 176.13 minutes, (Normal: 12-56 minutes). NM/Gastric Emptying Study IMPRESSION: 1. ABNORMAL 99m Tc sulfur colloid semi-solid phase (oatmeal) gastric emptying imaging examination. A. There is delayed semi-solid phase gastric emptying compared to normal controls with maintained first order kinetics throughout all components of the examination. (Cathleen et al, J Nucl Med Tech 38: 186, 2010). Electronically Signed: Leonel Feldman DO at 21:54 EDT ,
== END | disposition home or self-care (01) ==
LOC: NM 12:09
PROVIDERS: PCP Internal Medicine; Referring Provider Internal Medicine Gastroenterology; Visit Provider Internal Medicine Gastroenterology
DX: K59.00 Constipation, unspecified (principal); R10.13 Epigastric pain
CPT/HCPCS: 78264; A9541

== ENCOUNTER → 2023-12-07 | Outpatient (CLI) | payer MEDICARE, MEDICAID, SELFPAY ==
--- NOTE | 2023-12-07 13:02 | ST.MBS ---
Modified Barium Swallow Patient Information Study Date: 12/07/23 Study Time: 13:00 Direct Billable Minutes: 104 Total Minutes procedure & reportin Diagnosis: Esophageal dysphagia R13.19 Referring Physician: Diomedes Bey Reason for Referral: Objectively assess swallow function, assess risk for aspiration, and determine recommendations for least restrictive diet textures and compensatory strategies to improve safety of swallow. Medical History: Patient had recent BSE at [facility] on 11/06/2023 referred by industrial specialist, Dr. Bey, who has been managing patient for esophageal dysphagia, abnormal gastric folds (hx of gastroparesis per sister), and esophageal stenosis s/p dilation during EGD 10/16/2023. BSE recommended Easy to Chew textures / Thin liquids w/ no straws, small bites/sips, slow rate (see BSE for full aspiration precautions) and MBSS for further assessment of swallow function and aspiration risk. Angie, the patient?s sister and caregiver, attended this MBSS with him. She reported he mostly has trouble swallowing when he eats or drinks with a rapid rate. She is fearful of him choking and tries to prepare tender foods for him, avoiding regular textured meats, such as pork chops. They also do not use straws because he slurps up air when he is done completing his drinks. Of note, Max has much difficulty following commands and would likely not be a candidate for oropharyngeal strengthening. During BSE, he could only follow commands w/ visual models to open his mouth. 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 Current Diet Ordered: Easy to Chew textures / Thin liquids Dentition: Natural Teeth and Missing Teeth Mental Status: Impaired (Cognitive impairment. SEE PMH above.) Respiratory Status: Oxygenating on Room Air Penetration-Aspiration Scale Penetration-Aspiration Scale: OBJECTIVE ASSESSMENT OF SWALLOW FUNCTION (QUANTITATIVE ? PER TRIAL): PENETRATION / ASPIRATION SCALE ([place]): 1 = does not enter airway 2 = enters airway/above vocal folds/ejected 3 = enters airway/above vocal folds/not ejected 4 = enters airway/contacts vocal folds/ejected 5 = enters airway/contacts vocal folds/not ejected 6 = enters airway/below vocal folds/ejected 7 = enters airway/below vocal folds/not ejected despite effort 8 = enters airway/below vocal folds/no effort VIDEOFLOROSCOPIC SCALE SCORE ([place]): Grade I = aspiration of material that has penetrated into the laryngeal vestibule, intact cough reflex Grade II = aspiration < 10 % of the bolus, intact cough reflex Grade III = aspiration of < 10 % of the bolus, reduced cough reflex or aspiration of > 10 % of the bolus, intact cough reflex Grade IV = aspiration of > 10 % of the bolus, reduced cough reflex Penetration-Aspiration Scale Score Thin Liquid via teaspoon: Result: 1= does not enter airway Thin Liquid via teaspoon Trial 2: Result: 1= does not enter airway Thin Liquid via large single sip: cup: Result: 1= does not enter airway Bowlegs Thick Liquid via large single sip: cup: Result: 1= does not enter airway Pudding via teaspoon: Result: 1= does not enter airway Comment: Esophageal screen - Complete clearance. 1/2 Cookie: Result: 1= does not enter airway Comment: Esophageal screen - Retention of small piece of un-chewed cookie in the upper esophagus. Thin Liquid via sequential sips: cup: Result: 3= enters airways/above vocal folds/not ejected Comment: Esophageal screen - Trace retention in the lower esophagus. Oral Phase Labial Seal: Interlabial escape, no progression to anterior lip Tongue Control During Bolus Hold: Posterior escape of greater than half of bolus Bolus Preparation/Mastication: Disorganized chewing/mashing with solid pieces of bolus unchewed (Pieces of cookie appeared un-chewed) Bolus Transport/Lingual Motion: Repetitive/disorganized tongue motion Oral Residue: Residue collection on oral structures Pharyngeal Phase Initiation of Pharyngeal Swallow: Bolus head in pyriforms Soft Palate Elevation: No bolus between soft palate and pharyngeal wall Anterior Hyoid Excursion: Partial anterior movement Epiglottic Movement: Complete inversion Laryngeal Vestibule Closure at Height of Swallow: Incomplete; narrow column of air/contrast in laryngeal vestibule Pharyngeal Stripping Wave: Present - diminished Pharyngoesophageal Segment Opening: Parital distension and partial duration; parital obstruction of flow Tongue Base Retraction: Narrow column of contrast between tongue base & post. pharyngeal wall Pharyngeal Residue: Collection of residue within or on pharyngeal structures Esophageal Phase Esophageal Clearance: Esophageal retention Diagnosis/Impression Diagnosis: Oropharyngeal dysphagia R13.12 Impression: The oral phase is primarily marked by... -Disorganized tongue motion for A-P transport. -Decreased bolus control with premature posterior loss of >1/2 of all the consistencies to the pharynx prior to swallow onset (liquids spilled to pyriforms). Sequential thin spilled to the laryngeal vestibule prior to swallow onset, placing him at increased risk for aspiration. -Decreased mastication w/ pieces of cookie appearing un-chewed, which were observed on the posterior pharyngeal wall, pyriform sinuses, and upper esophagus after the swallow. Residues of un-chewed cookie place him at increased risk for choking. The pharyngeal phase is primarily marked by... -Delayed swallow onset. -Trace to moderate pharyngeal residues (worse w/ larger bolus sizes and cookie) due to decreased tongue base retraction, pharyngeal stripping wave, and UES opening/duration. -Decreased airway closure due to decreased anterior hyoid excursion and laryngeal elevation. Laryngeal penetration of thin liquids via sequential sips via cup that did not fully eject after the swallow, increasing risk for post prandial aspiration. While BINDERY CUTTER OPERATOR did not see the patient aspirate, I do believe the patient to be high risk for aspirate or choke w/ rapid rate of eating/drinking. The esophageal phase is marked by... -Retention of small piece of un-chewed cookie in the upper esophagus. -Trace retention of thin liquid in the UES and lower esophagus. Recommendations Diet: Mechanical Soft Textures (Soft and Bite size - IDDSI Level 6) and Thin Liquids Compensatory Strategies: Small Bites (1.5cmX1.5cm; Consider use of ARK maroon spoons or other shallower, smaller utensils to better limit bite size), Small Sips (Consider use of Provale 10cc bolus control cup to better control rate of oral intake), Slow Rate, Sitting upright, Remain sitting upright for 30 minutes after PO intake and Minimize/decrease distractions Supervision: 1:1 Close Supervision Recommend Repeat Modified Barium Swallow: TBD Need for Skilled Speech Therapy Services: Yes Comment: Follow-up dysphagia therapy for management of... -Train the patient in use of strategies and adaptive equipment (bolus control cups and ARK utensils) to decrease risk for aspiration and choking. -Ongoing assessment of diet tolerance of recommended textures. -Education re: soft and bite size (IDDSI level 6) testing and preparation. Goals to be added to POC... (LTG) The patient will consume least restrictive diet textures without overt s/s of aspiration with 90% acc with supervision, adaptive cups/utensils, and moderate verbal cues to decrease risk for aspiration and choking. (STG) Family will verbalize awareness of soft and bite size testing (fork pressure test, 1.5cmX1.5cm bite size) and diet texture preparation tips to decrease risk for aspiration and choking. Education Completed: 1. Described result of evaluation., 4. Family/caregivers understand evaluation & agree w/ goals & tx plan., 7. Pt requires further education on strategies & risks. and 8. Family/caregivers require further education on strategies & risks. Comment: BINDERY CUTTER OPERATOR thoroughly educated the patient's sister, Angie, in recommended diet textures via verbal discussion and handout of diet testing/preparation of soft and bite size textures and rationale for bite sizes to be 1.5cmX1.5cm or less to decrease risk for choking. BINDERY CUTTER OPERATOR also provided the patient sister information re: Provale 10cc bolus control cups via in-person discussion, as well as information re: ARK therapeutic utensils via phone call. Education well received, but patient and family would benefit from continued education and follow-up w/ OP dysphagia therapy at . Status Active ST Patient: Active Contact Information [facility]:: Melanie Figueroa M.A. [facility]INDERY CUTTER OPERATOR? Speech-Language Pathologist?? [facility] [address] [place] [address]? [email or web address]?? [phone]
== END | disposition home or self-care (01) ==
LOC: RAD 12:43
PROVIDERS: PCP Internal Medicine; Referring Provider Internal Medicine Gastroenterology; Visit Provider Internal Medicine Gastroenterology
DX: R13.19 Other dysphagia (principal)
CPT/HCPCS: 74230; 92611

== ENCOUNTER 2024-01-08 11:00 | Outpatient (RCR) | payer MEDICARE, MEDICAID, SELFPAY ==
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
--- NOTE | 2024-03-12 11:57 | HP.SP.DC_ITS ---
ST Discharge Summary Discharged: Discharge: INNA ORTIZ is a 69 year old male who presented to [facility] on 11/06/2023 d/t concerns with Esophageal Dysphagia,R13.19 Abnormal gastric folds,Q40.3 and Weight loss,R63.4. He participated in the bedside swallow evaluation which recommended easy to chew textures, thin liquids, along with the following safe swallowing precautions: Supervision Needed All Meals, 1 to 1 Close Supervision, Reduce Distractions, Needs Verbal Cues to Use Recommended Strategies, Small Sips & Bites when Eating and No Straw. It was also recommended that he participate in an MBSS to objectively assess swallow function. He participated in the MBSS on 12/07/2023 with the following r ecommendations: Diet: Mechanical Soft Textures (Soft and Bite size - IDDSI Level 6) and Thin Liquids Compensatory Strategies: Small Bites (1.5cmX1.5cm; Consider use of ARK maroon spoons or other shallower, smaller utensils to better limit bite size), Small Sips (Consider use of Provale 10cc bolus control cup to better control rate of oral intake), Slow Rate, Sitting upright, Remain sitting upright for 30 minutes after PO intake and Minimize/decrease distractions Supervision: 1:1 Close Supervision Recommend Repeat Modified Barium Swallow: TBD Need for Skilled Speech Therapy Services: Yes Comment: Follow-up dysphagia therapy for management of... -Train the patient in use of strategies and adaptive equipment (bolus control cups and ARK utensils) to decrease risk for aspiration and choking. -Ongoing assessment of diet tolerance of recommended textures. -Education re: soft and bite size (IDDSI level 6) testing and preparation. Following MBSS, Pt participated in one follow up outpatient session where ST reviewed the change in diet texture recommendations along with print outs of the recommended adaptive equipment. Following discussion with family, Pt's chart was to remain open through the middle of January, and if family did not make additional appointments with ST, it was agreed that he would be discharged. Pt's chart is being d/c on this date following the absence of additional appointments. Thank you for allowing me to participate in the care of your patient.
== END 2024-01-08 19:00 | disposition home or self-care (01) ==
LOC: SP 11:00
PROVIDERS: PCP Internal Medicine; Referring Provider Internal Medicine Gastroenterology; Visit Provider Internal Medicine Gastroenterology
DX: R13.19 Other dysphagia (principal)
CPT/HCPCS: 92526; 92610

== ENCOUNTER → 2024-03-04 | Outpatient (CLI) | payer MEDICARE, MEDICAID, SELFPAY ==
[2024-03-04 10:45] LABS: ALB/GLOB Ratio 1.1 RATIO (0.9-2.4); AST(SGOT) 13 U/L (15-37); Alanine Aminotransfer ALT/SGPT 16 U/L (16-61); Albumin, Serum 3.6 g/dL (3.2-5.0); Alkaline Phosphatase 73 U/L (45-117); Anion Gap 2 (5-15); BUN 16 mg/dL (7-18); BUN/Creat Ratio 16.6 RATIO (10-20); Calcium,Total 9.4 mg/dL (8.5-10.1); Chloride 108 mmol/L (98-107); Creatinine, Serum 0.96 mg/dL (0.70-1.30); EST Glomerular Filtration Rate 83 mL/min (>60); Est Glom Filt Rate - Afr Amer 100 mL/min (>60); Globulin 3.4 g/dL (2.2-4.2); Glucose 95 mg/dL (74-106); Potassium 3.9 mmol/L (3.5-5.1); Sodium Level 140 mmol/L (136-145)
== END | disposition home or self-care (01) ==
PROVIDERS: PCP Internal Medicine; Referring Provider Psychiatry & Neurology Neurology; Visit Provider Psychiatry & Neurology Neurology
DX: G40.909 Epilepsy, unspecified, not intractable, without status epilepticus (principal)
CPT/HCPCS: 36415; 80053

== ENCOUNTER → 2024-10-16 | Outpatient (CLI) | payer MEDICARE, MEDICAID, SELFPAY ==
--- OUTSIDE RECORDS SUMMARY | 2024-10-16 08:40 | XMS RPT_ITS | CCD ---
Author Organization [facility] Care Team Providers Care Intelligence Agent Name Role Phone SARAHI CLARKE Unavailable Unavailable SARAHI CLARKE Unavailable Unavailable Nehemiah Thomas Unavailable Unavailable SARAHI CLARKE Unavailable Unavailable SARAHI CLARKE Unavailable Unavailable Nehemiah Thomas Unavailable Unavailable Nehemiah Thomas MD Primary Care Provider [place], [place] S Unavailable Dr. Nehemiah Thomas Primary Care Provider Dr. Milton Meyers Emergency Provider Dr. Marcellus Harris Admit Provider Dr. Marcellus Harris Attending Provider Dr. Marcellus Harris Other Provider Dr. Grace Palacios Attending Provider Dr. Grace Palacios Other Provider Dr. Nehemiah Thomas Referring Provider TRISTIN Riggs Attending Provider Nehemiah Thomas MD Primary Care Provider [place], [place] S Unavailable Dr. Nehemiah Thomas Primary Care Provider Dr. Nehemiah Thomas Referring Provider TRISTIN Riggs Attending Provider Sotero, Dr. Hercules Attending Provider [place], [place] S Unavailable [place], [place] S Unavailable Eliza Zamora MD Primary Care Provider Dr. Nehemiah Thomas Primary Care Provider William, Dr. Cerna Referring Provider Sotero, Dr. Hercules Attending Provider [phone] Toño Blunt Attending Provider Unavailable Concepcion SWAIN, BARREL ASSEMBLER HELPER-C Mahogany Galo Attending Provider [phone] Dr. Nehemiah Thomas Primary Care Provider William, Dr. Cerna Referring Provider Dhruv, Dr. Eliza Rios Primary Care Provider Dhruv, Dr. Eliza Rios Referring Provider Friend, Dr. Hercules Attending Provider [phone] Friend, Dr. Hercules Other Provider [phone] Eliza Zamora Primary Care Provider Dhruv, Dr. Eliza Rios Referring Provider Sotero, Dr. Hercules Attending Provider [phone] Sotero, Dr. Hercules Other Provider [phone] William, Dr. Cerna Referring Provider TRISTIN Riggs Attending Provider Concepcion SWAIN, BARREL ASSEMBLER HELPER-C Mahogany Galo Attending Provider [phone] [place], [place] S Unavailable Dr. Eliza Zamora Primary Care Provider Dr. Eliza Zamora Referring Provider Sotero, Dr. Hercules Attending Provider [phone] Concepcion BARREL ASSEMBLER HELPER, BARREL ASSEMBLER HELPER-C Mahogany Galo Attending Provider [phone] [place], [place] S Unavailable Jean Carlos Mirza RN Unavailable Dr. Eliza Zamora Primary Care Provider Dr. Eliza Zamora Referring Provider Friend, Dr. Hercules Attending Provider [phone] Eliza Zamora MD Primary Care Provider Nehemiah Thomas MD Primary Care Provider Goel HOBBING MACHINE OPERATOR.FORMAL WEAR RENTAL CLERK, Tayla Unavailable Julee HOBBING MACHINE OPERATOR.RELIEF WORKER, Ambar Unavailable Julee HOBBING MACHINE OPERATOR.RELIEF WORKER, Ambar Unavailable Julee HOBBING MACHINE OPERATOR.RELIEF WORKER, Ambar Unavailable Goel HOBBING MACHINE OPERATOR.FORMAL WEAR RENTAL CLERK, Tayla Unavailable Goel HOBBING MACHINE OPERATOR.FORMAL WEAR RENTAL CLERK, Tayla Unavailable Dr. Eliza Zamora MD Primary Care Provider [phone] Dr. Eliza Zamora MD Referring Provider Friend Dr. Diomedes WALKER Attending Provider Dr. Tom Sparks MD Attending Provider [phone] FriendDiomedes Attending Unavailable Talampas, Eliza D Referring Unavailable Tom Sparks Attending Unavailable Talampas, Eliza D Referring Unavailable Tom Sparks Attending Unavailable Talampas, Eliza D Referring Unavailable Talampas, Eliza D Primary Care Unavailable FriendDiomedes Consulting Unavailable Talampas, Eliza D Primary Care Unavailable Talampas, Eliza D Referring Unavailable FriendDiomedes Attending Unavailable FriendDiomedes Attending Unavailable Talampas, Eliza D Referring Unavailable Talampas, Eliza D Primary Care Unavailable Talampas, Eliza D Primary Care Unavailable Talampas, Eliza D Referring Unavailable FriendDiomedes Attending Unavailable FriendDiomedes Attending Unavailable Talampas, Eliza D Primary Care Unavailable FriendDiomedes Referring Unavailable Tom Sparks Attending Unavailable ZeinabdourTom Referring Unavailable Talampas, Eliza D Primary Care Unavailable Talampas, Eliza D Primary Care Unavailable Friend, Diomedes Attending Unavailable Friend, Diomedes Referring Unavailable Talampas, Eliza D Primary Care Unavailable Friend, Diomedes Attending Unavailable Friend, Diomedes Referring Unavailable TESTRAKE, CLAUDETTE Attending Unavailable TESTRAKE, CLAUDETTE Referring Unavailable TALAMPAS, ELIZA D Primary Care Unavailable TALAMPAS, ELIZA D Primary Care Unavailable AMBAR LADD Attending Unavailable TESTRAKE, CLAUDETTE Referring Unavailable TALAMPAS, ELIZA D Primary Care Unavailable TESTRAKE, CLAUDETTE Attending Unavailable TALAMPAS, ELIZA D Primary Care Unavailable SLEIK, KHALED MELOUD Referring Unavailable TALAMPAS, ELIZA D Primary Care Unavailable SLEIK, KHALED MELOUD Referring Unavailable SLEIK, KHALED MELOUD Attending Unavailable TALAMPAS, ELIZA D Primary Care Unavailable SLEIK, KHALED MELOUD Attending Unavailable SLEIK, KHALED MELOUD Referring Unavailable AMBAR LADD Attending Unavailable SELF Referring Unavailable TALAMPAS, ELIZA D Primary Care Unavailable TESTRAKE, CLAUDETTE Referring Unavailable TALAMPAS, ELIZA D Primary Care Unavailable TESTRAKE, CLAUDETTE Attending Unavailable TALAMPAS, ELIZA D Primary Care Unavailable AMBAR LDAD Attending Unavailable TALAMPAS, ELIZA D Primary Care Unavailable TALAMPAS, ELIZA D Attending Unavailable TALAMPAS, ELIZA D Primary Care Unavailable AMBAR LADD Referring Unavailable TALAMPAS, ELIZA D Primary Care Unavailable TESTRAKE, CLAUDETTE Referring Unavailable TESTRAKE, CLAUDETTE Attending Unavailable TALAMPAS, ELIZA D Primary Care Unavailable TALAMPAS, ELIZA D Primary Care Unavailable TALAMPAS, ELIZA D Attending Unavailable TALAMPAS, ELIZA D Primary Care Unavailable TALAMPAS, ELIZA D Referring Unavailable TALAMPAS, ELIZA D Primary Care Unavailable BOB PASCUAL Attending Unavailable AMBAR LADD Referring Unavailable TALAMPAS, ELIZA D Primary Care Unavailable SLEIK, KHALED MELOUD Referring Unavailable TALAMPAS, ELIZA D Primary Care Unavailable TESTRAKE, CLAUDETTE Attending Unavailable TESTRAKE, CLAUDETTE Referring Unavailable JASMIN WEST Attending Unavailable TALAMPAS, ELIZA D Primary Care Unavailable SELF Referring Unavailable TESTRAKE, CLAUDETTE Referring Unavailable TALAMPAS, ELIZA D Primary Care Unavailable TESTRAKE, CLAUDETTE Attending Unavailable TALAMPAS, ELIZA D Primary Care Unavailable AMBAR LADD Referring Unavailable Allergies Allergy Classification Reported Allergen(s) Allergy Type Date of Onset Reaction(s) Facility (20 sources) cefdinir; Translations: [CEFDINIR] Drug Allergy 05-06-19 22 [facility] Work Phone: (20 sources) NITROFURANTOIN, MACROCRYSTALS / Nitrofurantoin, Monohydrate; Translations: [NITROFURANTOIN MONOHYD/M-CRYST] Drug Allergy 05-11-19 22 [facility] (20 sources) Angiotensin Converting Enzyme (Bandar) Inhibitors; Translations: [BANDAR Inhibitors] Propensity to adverse reactions 10-16-19 21 Other: See Comments [facility] (10 sources) Nitrofurantoin Drug Allergy 03-16-19 23 [facility] (1 source) cefdinir Drug Allergy 07-30-19 25 [facility] Repository (1 source) Nitrofurantoin Drug Allergy 07-30-19 25 [facility] Repository Medications Current Medications Medication Drug Class(es) Dates Sig (Normalized) Sig (Original) aspirin 81 mg chewable tablet (20 sources) Platelet Aggregation Inhibitor, Nonsteroidal Anti-inflammatory Drug Start: 05-30-2016 take 1 tablet by mouth once daily Aspirin 81 MG tablet,chewable Active 81 mg PO DAILY@0800 May 30, 2016 12:00am Start: 02-24-2013 take 1 tablet by tiffanie th once daily aspirin, enteric coated (ECOTRIN LOW STRENGTH) 81 mg EC tablet Take 1 tablet by mouth once daily. 0 02/24/2013 Active Comment on above: Take 1 tablet by tiffanie th once daily. Capsaicin-Methyl Pablo-Menthol (10 sources) Start: 04-28-2021 Capsaicin-Methyl Pablo-Menthol Active 1 APPLIC TOPICAL THREE TIMES A DAY April 28, 2021 5:10pm Start: 04-28-2021 Capsaicin-Meth yl Pablo-Menthol Active 1 APPLIC TOPICAL THREE TIMES A DAY April 28, 2021 12:00am Start: 04-28-2021 Capsaicin-Meth yl Pablo-Menthol Active 1 APPLIC TOPICAL THREE TIMES A DAY April 28, 2021 1:00am cenobamate 100 mg oral tablet (2 sources) Start: 07-29-2024 take 1 tablet by mouth once daily Cenobamate (Xcopri) 100 mg tablet Active 100 mg PO DAILY July 29, 2024 12:00am Begin after completing Xcopri 50mg/100mg titration pack. Cenobamate (2 sources) Start: 07-29-2024 take 1 tablet by mouth once Cenobamate (Xcopri Titration Pack) 12.5 mg (14)- 25 mg (14) tablets,dose pack Active 0 PO per package directions July 29, 2024 12:00am Week 1 to 4: PO PER PKG DIR Cenobamate (2 sources) Start: 07-29-2024 Cenobamate (Xc opri Titration Pack) 50 mg (14)- 100 mg (14) tablets,dose pack Active 0 PO per package directions July 29, 2024 12:00am PO PER PKG DIR; began after completing 2-week course of Xcopri 25 mg daily chondroitin sulfates 200 mg / glucosamine hydrochloride 250 mg oral tablet (11 sources) Start: 09-29-2021 Glucosamine-Ch ondroit in (Osteo Bi-Flex) 250-200 mg tablet Active 1 {tbl} PO after meals September 29, 2021 12:00am docusate sodium 50 mg oral capsule (20 sources) Start: 09-25-2023 take 4 capsules by mouth once daily Docusate Sodium 50 mg capsule Active 200 mg PO DAILY September 25, 2023 8:51am Start: 09-25-2023 take 2 capsules by m outh once daily Docusate Sodium 100 mg capsule Active 200 mg PO DAILY September 25, 2023 12:00am Start: 03-27-2022 End: 09-25-2023 take 1 capsule by mouth twice daily Docusate Sodium 50 mg Capsule Discontinued 50 mg PO TWICE A DAY March 27, 2022 1:00am September 25, 2023 8:54am Comment on above: Take 200 mg by mouth daily with breakfast. famotidine 20 mg oral tablet (20 sources) Histamine-2 Receptor Antagonist Start: 3 End: 5 take 1 tablet by mouth once famotidine (PEPCID) 20 mg tablet Take 1 tablet by mouth once daily. (Per GI) 90 tablet 2 01/09/2023 Active Comment on above: Take 1 tablet by tiffanie once daily. (Per GI) fluticasone propionate 0.05 mg/actuat metered dose nasal spray (20 sources) Corticosteroid Start: 2 take 50 ug nasal route once daily Fluticasone Propionate (Flonase Allergy Relief) 50 mcg/actuation spray,suspension Active 2 NMA INTRANASAL DAILY September 29, 2021 12:00am administer into each nostril Start: 09-29-2021 take 1 spray(s) nasa l route once daily Fluticasone Propionate (Flonase Allergy Relief) 50 mcg/actuation spray,suspension Active 2 SPRAY INTRANASAL DAILY September 28, 2021 11:00pm administer into each nostril Start: 11-29-2020 End: 02-25-2024 take 2 spray(s) nasal route once daily as needed fluticasone (FLONASE) 50 mcg/actuation nasal spray Indications: Rhinitis, unspecified type Use 2 Sprays in each nostril once daily as needed. Rinse mouth after use. 1 Each 5 02/25/2024 Active Comment on above: Use 2 Sprays in each nostril once daily. Rinse mouth after use. glucosamine/chondr victoria A sod (OSTEO BI-FLEX ORAL) (20 sources) glucosamine/randal dr victoria A sod (OSTEO BI-FLEX ORAL) Take by mouth once daily. Active glucosamine/randal dr victoria A sod (OSTEO BI-FLEX ORAL) Take by mouth once daily. 0 Active Comment on above: Take by mouth once d aily. lacosamide 150 mg oral tablet (20 sources) Anti-epileptic Agent Start: 06-23-2024 End: 07-29-2024 take 1 tablet by mouth twice daily Lacosamide 150 mg tablet Active 150 mg PO TWICE A DAY 60 July 29, 2024 10:55am Start: 01-28-2024 End: 06-23-2024 take 1 tablet by mouth twice daily Lacosamide 100 mg tablet Discontinued 100 mg PO TWICE A DAY April 22, 2024 11:21am June 23, 2024 4:44pm Start: 12-06-2022 End: 03-03-2024 take 1 tablet by mouth twice daily Lacosamide 50 mg tablet Discontinued 50 mg PO TWICE A DAY September 10, 2023 12:00am September 25, 2023 10:18am Comment on above: Take 1 tablet by tiffanie two times a day for 180 days. Lactobacillus Combination No.9 (Adult 50 Plus Probiotic) 4 billion cell capsule (3 sources) Start: 9 take 4 capsules by mouth once daily Lactobacillus Combination No.9 (Adult 50 Plus Probiotic) 4 billion cell capsule Active 4000 MMU CELLS PO DAILY August 01, 2018 3:31pm Start: 08-01-2018 take 4 capsules by m outh once daily Lactobacillus Combination No.9 (Adult 50 Plus Probiotic) 4 billion cell capsule Active 4000 MMU CELLS PO DAILY July 31, 2018 11:00pm Start: 08-01-2018 take 4 capsules by m outh once daily Lactobacillus Combination No.9 (Adult 50 Plus Probiotic) 4 billion cell capsule Active 4000 MMU CELLS PO DAILY August 01, 2018 12:00am Lactobacillus rhamnosus GG (CULTURELLE ORAL) (20 sources) take 1 capsule by mo uth once daily Lactobacillus rhamnosus GG (CULTURELLE ORAL) Take 1 capsule by mouth once daily. Active take 1 capsule by mouth once leandro ly Lactobacillus rhamnosus GG (CULTURELLE ORAL) Take 1 capsule by mouth once daily. 0 Active Comment on above: Take 1 capsule by mo uth once daily. melatonin 3 mg oral capsule (6 sources) Start: 5 take 1 capsule by mouth at bedtime as needed Melatonin 3 mg capsule Active 3 mg PO BEDTIME as needed July 30, 2024 12:00am meloxicam 15 mg oral tablet (1 source) Nonsteroidal Anti-inflammatory Drug Start: 5 take 1 tablet by mouth once daily as needed for pain meloxicam (MOBIC) 15 mg tablet Indications: Chronic pain of both knees Take 1 tablet by mouth once daily as needed for pain. 30 tablet 3 10/01/2024 Active menthol 0.0044 mg/mg / zinc oxide 0.206 mg/mg topical ointment (9 sources) Start: 5 Menthol-Zinc Oxide (CALMOSEPTINE) 0.44-20.6 % Apply to affected area two times a day. 113 g 1 08/06/2024 Active midazolam 50 mg/ml nasal spray (20 sources) Benzodiazepine Start: 4 Midazolam (Nayzilam) 5 mg/spray (0.1 mL) spray,non-aerosol Active 0 .ROUTE .COMPLEX 2 September 25, 2023 12:00am On Hold: INSURANCE REFUSING TO PAY Administer 1 spray intranasally for seizure lasting 5 minutes or more; may repeat dose in other nostril after 10 minutes if inadequate response End: 08-18-2024 NAYZILAM 5 mg/spray (0.1 mL) nasal spray Use 1 [place] in the nose as needed for seizures lasting longer than 5 minutes. 08/18/2024 Discontinued 24 hr oxybutynin chloride 10 mg extended release oral tablet (20 sources) Cholinergic Muscarinic Antagonist Start: 06-29-2020 End: 07-23-2024 take 1 tablet by mouth once daily oxybutynin ER (DITROPAN XL) 10 mg 24 hr tablet Indications: Urinary incontinence, unspecified type Take 1 tablet by mouth once daily. 90 tablet 3 07/23/2024 Active Comment on above: Take 1 tablet by tiffanie th once daily. prazosin 1 mg oral capsule (20 sources) alpha-Adrenergic Jason Start: 10-17-2023 End: 05-14-2024 take 1 capsule by mouth once daily at bedtime prazosin (MINIPRESS) 1 mg cap Take 1 capsule by mouth daily at bedtime. 90 capsule 3 05/14/2024 Active sertraline 50 mg oral tablet (11 sources) Serotonin Reuptake Inhibitor Start: 07-29-2024 take 1 tablet by mouth once daily in the morning sertraline (ZOLOFT) 50 mg tablet Take 50 mg by mouth every morning. 07/29/2024 Active simvastatin 20 mg oral tablet (20 sources) HMG-CoA Reductase Inhibitor Start: 05-30-2016 End: 01-22-2024 take 1 tablet by mouth once daily at bedtime simvastatin (ZOCOR) 20 mg tablet Take 1 tablet by mouth daily at bedtime. 90 tablet 3 01/22/2024 Active Comment on above: Take 1 tablet by tiffanie th daily at bedtime. spironolactone 25 mg oral tablet (20 sources) Aldosterone Antagonist Start: 09-29-2021 take 12.5 mg by mouth once daily Spironolactone Active 12.5 MG PO DAILY September 28, 2021 11:00pm Start: 05-10-2021 End: 05-10-2022 take 0.5 tablet by mouth once daily spironolactone (ALDACTONE) 25 mg tablet Indications: Primary hypertension Take 0.5 tablets by mouth once daily. 45 tablet 3 05/10/2021 03/23/2022 Discontinued Start: 09-20-2020 End: 05-05-2021 take 0.5 tablet by mouth once daily spironolactone (ALDACTONE) 25 mg tablet Indications: Cardiomyopathy, unspecified type (HCC) Take 0.5 tablets by mouth once daily. 45 tablet 3 09/20/2020 05/05/2021 Discontinued Start: 07-31-2018 End: 04-30-2021 Spironolactone 25 mg tablet Discontinued 12.5 mg PO DAILY July 31, 2018 2:23pm April 30, 2021 11:32am Start: 07-31-2018 End: 04-30-2021 take 12.5 mg by mouth once daily Spironolactone Discontinued 12.5 MG PO DAILY July 31, 2018 1:23pm April 30, 2021 10:32am Start: 05-30-2016 End: 07-31-2018 take 1 tablet by mouth once daily Spironolactone 25 MG tablet Discontinued 25 mg PO DAILY May 30, 2016 12:00am July 31, 2018 2:25pm Comment on above: Take 0.5 tablets by mouth once daily. sulfamethoxazole 800 mg / trimethoprim 160 mg oral tablet (10 sources) Dihydrofolate Reductase Inhibitor Antibacterial, Sulfonamide Antimicrobial Start: End: take 1 tablet by mouth twice daily sulfamethoxazo le-trimethopri m (BACTRIM DS) 800-160 mg per tablet Take 1 tablet by mouth two times a day for 7 days. 14 tablet 08/06/2024 08/13/2024 Active Start: 06-07-2021 End: 06-17-2021 take 1 tablet by mouth twice daily sulfamethoxazole-trimethoprim (BACTRIM D S) 800-160 mg per tablet Take 1 tablet by mouth twice daily for 10 days. 20 tablet 0 06/07/2021 06/17/2021 Active Comment on above: Take 1 tablet by [facility] twice daily for 10 days. XCOPRI TITRATION PACK 12.5 mg (14)- 25 mg (14) tablets in a dose pack (9 sources) Start: 07-29-2024 XCOPRI TITRATION PACK 12.5 mg (14)- 25 mg (14) tablets in a dose pack Take by mouth once daily. 07/29/2024 Active Completed/Discontinued Medications Medication Drug Class(es) Dates Sig (Normalized) Sig (Original) acetaminophen 325 mg / oxyCODONE hydrochloride 5 mg oral tablet (12 sources) Opioid Agonist Start: 07-20-2016 End: 07-31-2018 Oxycodone-Acetamino phen 1 TABLET tablet Discontinued 1 - 2 {tbl} PO EVERY 4 HOURS NEEDED as needed for Pain July 20, 2016 12:00am July 31, 2018 2:25pm Start: 07-20-2016 End: 07-31-2018 take 1 tablet by mouth every four hours as needed Oxycodone-Acetaminophen Discontinued 1 - 2 TABLET PO EVERY 4 HOURS NEEDED July 19, 2016 11:00pm July 31, 2018 1:25pm Capsaicin-Methyl Pablo-Menthol Cream (2 sources) Start: 04-28-2021 End: 09-25-2023 Capsaicin-Methyl Pablo-Menthol Cream Discontinued 1 NMA TOPICAL THREE TIMES A DAY as needed for ARTHRITIS April 28, 2021 1:00am September 25, 2023 8:53am carvedilol 12.5 mg oral tablet (20 sources) alpha-Adrener gic Jason, beta-Adrenerg ic Jason Start: 03-27-2022 End: 04-05-2022 take 3.125 mg by mouth twice daily at mealtime Carvedilol 12.5 mg tablet Discontinued 3.125 mg PO TWICE A DAY March 27, 2022 3:21pm April 05, 2022 11:28am must administer with a meal/food Start: 03-27-2022 End: 04-05-2022 take 3.125 mg by mouth twice daily at mealtime Carvedilol Discontinued 3.125 MG PO TWICE A DAY March 27, 2022 2:21pm April 05, 2022 10:28am must administer with a meal/food Start: 03-17-2022 End: 05-01-2022 carvedilol (COREG) 3.125 mg tablet Take 1 tablet by mouth twice daily. Hold medicine if blood pressure is less than 120/70 180 tablet 3 04/03/2022 05/01/2022 Discontinued Start: 03-10-2022 take 1 tablet by tiffanie th twice daily at mealtime carvedilol (COREG) 6.25 mg tablet Indications: Dilated cardiomyopathy (HCC) Take 1 tablet by mouth twice daily with meals. (As discussed with Dr. Wheeler) 180 tablet 1 03/10/2022 Active Start: 03-09-2022 End: 03-10-2022 take 0.5 tablet by mouth twice daily at mealtime carvedilol (COREG) 12.5 mg tablet Take 0.5 tablets by mouth twice daily with meals. (As discussed with Dr. Wheeler) 0 03/09/2022 03/10/2022 Discontinued Start: 02-27-2019 End: 03-27-2022 take 1 tablet by mouth twice daily at mealtime Carvedilol 12.5 mg tablet Discontinued 12.5 mg PO TWICE A DAY 180 February 27, 2019 5:58pm March 27, 2022 3:22pm must administer with a meal/food Start: 08-01-2018 End: 02-27-2019 take 1 tablet by mouth twice daily Carvedilol 6.25 mg tablet Discontinued 6.25 mg PO TWICE A DAY August 01, 2018 3:31pm February 27, 2019 5:58pm Start: 05-30-2016 End: 08-01-2018 take 9.375 mg by mouth twice daily Carvedilol 6.25 MG tablet Discontinued 9.375 mg PO TWICE A DAY May 30, 2016 12:00am August 01, 2018 3:31pm Start: 05-30-2016 End: 08-01-2018 take 9.375 mg by mouth twice daily Carvedilol Discontinued 9.375 MG PO TWICE A DAY May 29, 2016 11:00pm August 01, 2018 2:31pm Comment on above: Take 1 tablet by tiffanie th twice daily. Take 1 tablet by tiffanie th twice daily with meals. (As discussed with Dr. Wheeler) Take 0.5 tablets by mouth twice daily with meals. (As discussed with Dr. Wheeler) Take 0.5 tablets by mouth twice daily with meals. (As discussed with Dr. Wheeler) patient prefers to cut 12.5 mg tablet in half to = 6.25 mg dose Take 1 tablet by tiffanie th twice daily. Hold medicine if blood pressure is less than 120/70 cefdinir 300 mg oral capsule (12 sources) Cephalosporin Antibacterial Start: End: take 1 capsule by mouth twice daily Cefdinir 300 mg capsule Discontinued 300 mg PO TWICE A DAY 10 April 30, 2021 1:00am October 03, 2021 9:09am cholecalciferol 0.025 mg oral capsule (12 sources) Vitamin D Start: 022 End: take 1 capsule by mouth once daily Cholecalciferol (Vitamin D3) 25 mcg (1,000 unit) Capsule Discontinued 25 ug PO DAILY April 28, 2021 1:00am September 25, 2023 8:54am cholecalciferol, vitamin D3, (VITAMIN D3 ORAL) (20 sources) End: cholecalciferol, vitamin D3, (VITAMIN D3 ORAL) Take by mouth. 01/09/2023 Discontinued End: 01-09-2023 cholecalciferol, vitamin D3, (VITAMIN D3 ORAL) Take by mouth. 0 01/09/2023 Discontinued cholecalciferol, vitamin D3, (VITAMIN D3 ORAL) Take by mouth. 0 Active Comment on above: Take by mouth. ciprofloxacin 500 mg oral tablet (1 source) Quinolone Antimicrobial Start: 06-03-19 End: 06-08-19 take 1 tablet by mouth twice daily ciprofloxacin HCl (CIPRO) 500 mg tablet Indications: Urinary tract infection with hematuria, site unspecified Take 1 tablet by mouth twice daily for 7 days. 14 tablet 0 06/02/2021 06/07/2021 Discontinued Comment on above: Take 1 tablet by tiffanie twice daily for 7 days. colestipol hydrochloride 1000 mg oral tablet (9 sources) Bile Acid Sequestrant Start: 06-29-19 23 End: 08-10-19 23 take 1 tablet by mouth twice daily colestipol (COLESTID) 1 gram tablet Indications: Bile-induced gastritis Take 1 tablet by mouth twice daily. As directed 60 tablet 0 06/28/2022 08/09/2022 Discontinued (Discontinued by another Health Care Provider) Start: 06-28-2022 End: 07-25-2022 Colestipol 1 gram tablet Dis continued 1 g PO ONCE June 28, 2022 12:00am July 25, 2022 1:58pm don't take other meds within 1 hr before colestipol, or for 4-6 hrs after colestipol Comment on above: Take 1 tablet by tiffanie th twice daily. As directed cyanocobalamin, vitamin B-12, (VITAMIN B-12 ORAL) (2 sources) End: 09-22-2021 cyanocobalamin, vitamin B-12, (VITAMIN B-12 ORAL) Take by mouth. 0 09/22/2021 Discontinued (Duplicate Entry) cyanocobalamin, vitamin B-12, (VITAMIN B-12 ORAL) Take by mouth. 0 Active Comment on above: Take by mouth. doxycycline hyclate 100 mg oral capsule (7 sources) Tetracycline-cla ss Drug Start: 07-25-2024 End: 08-18-2024 take 1 capsule by mouth twice daily doxycycline hyclate (VIBRAMYCIN) 100 mg capsule Indications: Onychomycosis , Ingrowing toenail of right foot Take 1 capsule by mouth two times a day. 14 capsule 07/25/2024 08/18/2024 Discontinued hussein root 250 mg oral capsule (20 sources) Start: 09-29-2021 End: 10-03-2021 take 1 capsule by mouth once daily Hussein (Zingiber Officinalis) (Hussein Extract) 250 mg capsule Discontinued 250 mg PO DAILY September 29, 2021 12:00am October 03, 2021 9:09am Start: 04-28-2021 End: 04-30-2021 take 1 capsule by mouth twice daily Hussein (Zingiber Officinalis) 550 mg Capsule Discontinued 550 mg PO TWICE A DAY April 28, 2021 1:00am April 30, 2021 11:32am End: 09-01-2021 take 1 capsule by mouth twice daily Hussein, Zingiber officinalis, (HUSSEIN EXTRACT) 250 mg cap Take 1 capsule by mouth twice daily. 09/01/2021 Discontinued Comment on above: Take 1 capsule by [facility] twice daily. [id number] -C-Toan-Bosw (Osteo Bi-Flex Triple Strength) 750 mg-644 mg- 30 mg-1 mg Tablet (12 sources) Start: 04-28-2021 End: 04-30-2021 take 1 tablet by mouth at bedtime [id number] ang-Bosw (Osteo Bi-Flex Triple Strength) 750 mg-644 mg- 30 mg-1 mg Tablet Discontinued 1 TABLET PO AT BEDTIME April 28, 2021 5:10pm April 30, 2021 11:32am Start: 04-28-2021 End: 04-30-2021 Xffzzdrr-[id number]-[id number]-C-Toan-Dusty sw (Osteo Bi-Flex Triple Strength) 750 mg-644 mg- 30 mg-1 mg Tablet Discontinued 1 {tbl} PO AT BEDTIME April 28, 2021 1:00am April 30, 2021 11:32am Start: 04-28-2021 End: 04-30-2021 take 1 tablet by mouth at bedtime Cwbnuisw-Giff-Vba3-C-Toan-Bosw (Osteo Bi -Flex Triple Strength) 750 mg-644 mg- 30 mg-1 mg Tablet Discontinued 1 TABLET PO AT BEDTIME April 28, 2021 12:00am April 30, 2021 10:32am Start: 04-28-2021 End: 04-30-2021 take 1 tablet by mouth at bedtime Anvfmsjw-Njyz-Bib6-C-Toan-Bosw (Osteo Bi -Flex Triple Strength) 750 mg-644 mg- 30 mg-1 mg Tablet Discontinued 1 TABLET PO AT BEDTIME April 28, 2021 1:00am April 30, 2021 11:32am hydroCHLOROthiazide 25 mg oral tablet (20 sources) Thiazide Diuretic Start: 11-02-2020 End: 05-05-2021 take 0.5 tablet by mouth once daily hydroCHLOROthiazide (HYDRODIURIL, ESIDRIX) 25 mg tablet Indications: Essential hypertension Take 0.5 tablets by mouth once daily. 45 tablet 3 11/02/2020 05/05/2021 Discontinued Start: 07-31-2018 End: 04-30-2021 Hydrochlorothiazide 25 mg ta blet Discontinued 12.5 mg PO DAILY July 31, 2018 2:23pm April 30, 2021 11:32am Start: 07-31-2018 End: 04-30-2021 take 12.5 mg by mouth once daily Hydrochlorothiazide Discontinued 12.5 MG PO DAILY July 31, 2018 1:23pm April 30, 2021 10:32am Start: 05-30-2016 End: 07-31-2018 take 1 tablet by mouth once daily Hydrochlorothiazide 25 MG tablet Discontinued 25 mg PO DAILY May 30, 2016 12:00am July 31, 2018 2:25pm Bernardo Fabian,B. Lact is (10 sources) Start: 05-30-2016 End: 07-31-2018 L.Acidoph, Paracasei,B. Lact is Discontinued 1 EACH PO DAILY May 30, 2016 8:25am July 31, 2018 2:25pm Start: 05-30-2016 End: 07-31-2018 L.Acidoph, Paracasei,B. Lact is Discontinued 1 EACH PO DAILY May 29, 2016 11:00pm July 31, 2018 1:25pm Start: 05-30-2016 End: 07-31-2018 L.Acidoph, Paracasei,B. Lact is Discontinued 1 EACH PO DAILY May 30, 2016 12:00am July 31, 2018 2:25pm L.Acidoph,Paracasei,B.Animal is 1 EACH capsule (2 sources) Start: 05-30-2016 End: 07-31-2018 take 1 capsule by mouth once daily L.Acidoph,Paracasei,B.Animalis 1 EACH capsule Discontinued 1 NMA PO DAILY May 30, 2016 12:00am July 31, 2018 2:25pm linaclotide 0.145 mg oral capsule (8 sources) Abran Bryant ist Start: 10-16-2022 End: 09-25-2023 take 1 capsule by mouth once daily Linaclotide (Linzess) 145 mcg capsule Discontinued 145 ug PO DAILY October 16, 2022 1:26pm September 25, 2023 8:54am Sodium,Potassium,Mag Sulfate s (4 sources) Start: 02-21-2022 End: 04-05-2022 Sodium,Potassium,Mag Sulfate s (Suprep Bowel Prep Kit) 17.5-3.13-1.6 gram recon soln Discontinued 0 PO .COMPLEX 354 February 21, 2022 1:00am April 05, 2022 11:29am DILUTE; drink full amount early evening before AND next morning at least 2 hr before procedure; follow w 32 oz. water PO Start: 02-21-2022 End: 04-05-2022 Sodium,Potassium,Mag Sulfate s (Suprep Bowel Prep Kit) 17.5-3.13-1.6 gram recon soln Discontinued 0 PO .COMPLEX 354 February 21, 2022 12:00am April 05, 2022 10:29am DILUTE; drink full amount early evening before AND next morning at least 2 hr before procedure; follow w 32 oz. water PO metFORMIN hydrochloride 500 mg oral tablet (20 sources) Biguanide Start: 01-23-2022 End: 04-05-2022 Metformin 500 mg tablet Discontinued 500 mg PO NEEDED as needed for ONLY IF BS > 150 January 23, 2022 12:04pm April 05, 2022 11:29am Start: 01-23-2022 End: 04-05-2022 Metformin Discontinued 500 M G PO NEEDED January 23, 2022 11:04am April 05, 2022 10:29am Start: 06-29-2021 End: 01-23-2022 take 2 tablets by mouth twice daily at mealtime Metformin 500 mg tablet Discontinued 1000 mg PO 2 times per day with meals 360 June 29, 2021 12:00am January 23, 2022 12:04pm Start: 06-29-2021 End: 01-23-2022 take 1000 mg by mouth twice daily at mealtime Metformin Discontinued 1000 MG PO 2 times per day with meals 360 June 28, 2021 11:00pm January 23, 2022 11:04am Start: 05-30-2016 End: 04-03-2022 take 1 tablet by mouth twice daily at mealtime Metformin 500 MG tablet Discontinued 500 mg PO TWICE DAILY WITH MEALS May 30, 2016 12:00am June 29, 2021 10:47am Comment on above: Take 1 tablet by tiffanie th twice daily with meals. midodrine hydrochloride 2.5 mg oral tablet (14 sources) alpha-Adrenergic Agonist Start: 3 End: 3 take 1 tablet by mouth twice daily midodrine (PROAMATINE) 2.5 mg tablet Take 1 tablet by mouth twice daily. 60 tablet 0 09/04/2022 01/09/2023 Discontinued Comment on above: Take 1 tablet by tiffanie th twice daily. Miscellaneous Medical Supply (BLOOD PRESSURE CUFF) (10 sources) Start: 3 End: 3 Miscellaneous Medical Supply (BLOOD PRESSURE CUFF) Indications: Orthostatic hypotension 1 Each as needed. PEDIATRIC BP CUFF SIZE 10 1 Each 0 10/03/2022 01/09/2023 Discontinued Start: 10-03-2022 Miscellaneous Medical Supply (BLOOD PRESSURE CUFF) Indications: Orthostatic hypotension 1 Each as needed. PEDIATRIC BP CUFF SIZE 10 1 Each 0 10/03/2022 Active Comment on above: 1 Each as needed. PE DIATRIC BP CUFF SIZE 10 Multivitamin (Daily Multi-Vitamin) tablet (8 sources) Start: 04-05-2022 End: 09-25-2023 Multivitamin (Daily Multi-Vitamin) tablet Discontinued 1 {tbl} PO DAILY April 05, 2022 1:00am September 25, 2023 8:54am Start: 04-05-2022 take 1 tablet by tiffanie th once daily Multivitamin (Daily Multi-Vitamin) tablet Active 1 TABLET PO DAILY April 05, 2022 12:00am Start: 04-05-2022 take 1 tablet by tiffanie th once daily Multivitamin (Daily Multi-Vitamin) tablet Active 1 TABLET PO DAILY April 05, 2022 1:00am multivitamin-ferrous fumarate-folic acid (DAILY VITAMIN FORMULA-IRON) (2 sources) End: 05-01-2022 take 1 tablet by mouth once daily multivitamin-ferrous fumarate-folic acid (DAILY VITAMIN FORMULA-IRON) Take 1 tablet by mouth once daily. 0 05/01/2022 Discontinued take 1 tablet by mouth once jessica y multivitamin-ferrous fumarate-folic acid (DAILY VITAMIN FORMULA-IRON) Take 1 tablet by mouth once daily. 0 Active Comment on above: Take 1 tablet by tiffanie th once daily. nitroglycerin 0.4 mg/actuat mucosal spray (20 sources) Nitrate Vasodilator Start: 06-20-2021 End: 08-18-2024 nitroglycerin (NITROLINGUAL) 400 mcg/spray spray Dissolve 1 [place] under the tongue every 5 minutes as needed. 12 g 1 06/20/2021 08/18/2024 Discontinued Start: 03-15-2020 End: 06-18-2021 nitroglycerin (NITROLINGUAL) 400 mcg/spray spray Dissolve 1 [place] under the tongue every 5 minutes as needed. 1 Bottle 6 03/15/2020 06/18/2021 Discontinued Start: 10-15-2018 Nitroglycerin 400 mcg/spray spray,non-aerosol Active 0.4 mg translingual every 3 to 5 minutes as needed for Cardiac/Chest Pain 4.9 October 15, 2018 4:07pm Start: 05-30-2016 End: 10-15-2018 Nitroglycerin 0.4 MG bottle Discontinued 0.4 mg SL NEEDED as needed for Cardiac/Chest Pain May 30, 2016 12:00am October 15, 2018 4:09pm Start: 05-30-2016 End: 10-15-2018 Nitroglycerin Discontinued 0 .4 MG SL NEEDED May 29, 2016 11:00pm October 15, 2018 3:09pm Comment on above: Dissolve 1 [place] und er the tongue every 5 minutes as needed. omeprazole 40 mg delayed release oral capsule (20 sources) Proton Pump Inhibitor Start: 1 End: 3 take 1 capsule by mouth once daily Omeprazole 40 mg capsule,delayed release(DR/EC) Discontinued 40 mg PO DAILY April 28, 2021 1:00am July 25, 2022 1:58pm Comment on above: Take 1 capsule by [facility] once daily. perflutren lipid microspheres 1.3 mL in NaCl (PF) 0.9% 10 mL injection (DEFINITY) (17 sources) Start: End: 3 perflutren lipid microspheres 1.3 mL in NaCl (PF) 0.9% 10 mL injection (DEFINITY) Start: 01-28-2022 End: 04-29-2023 perflutren lipid microsphere s 1.3 mL in NaCl (PF) 0.9% 10 mL injection (DEFINITY) Start: 09-20-2020 End: 05-05-2021 perflutren lipid microsphere s 1.3 mL in NaCl (PF) 0.9% 10 mL injection (DEFINITY) plecanatide 3 mg oral tablet (4 sources) End: 11-26-2022 take 1 tablet by mouth once daily plecanatide (TRULANCE) 3 mg tablet Take 3 mg by mouth once daily. 0 11/26/2022 Discontinued (Adverse Reaction) Comment on above: Take 3 mg by mouth o nce daily. 125 ml sodium chloride 9 mg/ml prefilled syringe (15 sources) Start: 01-28-2022 End: 04-29-2023 sodium chloride 0.9 % (flush) 10 mL (BD POSIFLUSH) Start: 09-20-2020 End: 05-05-2021 sodium chloride 0.9 % (flush ) 10 mL (BD POSIFLUSH) Sodium,Potassium,Mag Sulfate s (Suprep Bowel Prep Kit) 17.5-3.13-1.6 gram recon soln (6 sources) Start: 02-21-2022 End: 04-05-2022 Sodium,Potassium,Mag Sulfate s (Suprep Bowel Prep Kit) 17.5-3.13-1.6 gram recon soln Discontinued 0 PO .COMPLEX 354 February 21, 2022 1:00am April 05, 2022 11:29am DILUTE; drink full amount early evening before AND next morning at least 2 hr before procedure; follow w 32 oz. water PO Start: 02-21-2022 Sodium,Potassi um,Mag Sulfates (Suprep Bowel Prep Kit) 17.5-3.13-1.6 gram recon soln Active 0 PO .COMPLEX 354 February 21, 2022 12:00am DILUTE; drink full amount early evening before AND next morning at least 2 hr before procedure; follow w 32 oz. water PO divalproex sodium 500 mg delayed release oral tablet (3 sources) Mood Stabilizer, Anti-epileptic Agent Start: 01-12-2023 End: 07-11-2023 take 1 tablet by mouth twice daily divalproex DR (DEPAKOTE) 500 mg EC tablet Indications: Seizures (HCC) , History of traumatic brain injury , History of stroke Take 1 tablet by mouth two times a day. 180 tablet 1 01/12/2023 02/05/2023 Discontinued (Course of therapy completed) Comment on above: Take 1 tablet by mouth two times a day. vitamin b12 1 mg oral capsule (20 sources) Vitamin B12 Start: 09-29-2021 End: 04-22-2024 take 1 capsule by mouth once daily Cyanocobalamin (Vitamin B-12) 1,000 mcg capsule Discontinued 1000 ug PO DAILY September 29, 2021 12:00am April 22, 2024 11:21am Start: 09-22-2021 End: 03-03-2024 take 1 tablet by mouth once daily cyanocobalamin (VITAMIN B-12) 1,000 mcg tab Take 1 tablet by mouth once daily. 09/22/2021 03/03/2024 Discontinued (Course of therapy completed) Comment on above: Take 1 tablet by tiffanie th once daily. Problems Active Problems Problem Classification Problem Date Documented Da te Episodic/Chronic Abdominal pain (12 sources) Epigastric pain; Translations: [Epigastric pain] 02-21-2022 Episodic Acquired foot deformities (2 sources) Hammer toe; Translations: [Other hammer toe(s) (acquired), left foot] 06-21-2023 Chronic Acquired foot deformities (3 sources) Hammer toe; Translations: [Other hammer toe(s) (acquired), right foot] 06-21-2023 Chronic Anxiety disorders (2 sources) Anxiety; Translations: [Anxiety disorder, unspecified] 07-29-2024 Chronic Chronic ulcer of skin (3 sources) Pressure ulcer of buttock stage 1; Translations: [Pressure ulcer of unspecified buttock, stage 1] Onset: 08-06-2024 08-07-2024 Chronic Coma; stupor; and brain damage (4 sources) Daytime somnolence; Translations: [Somnolence] 08-09-2022 Episodic Congestive heart failure; nonhypertensive (20 sources) Congestive heart failure; Translations: [Heart failure, unspecified] Onset: 03-03-2024 08-01-2018 Chronic Developmental disorders (3 sources) Developmental disorder; Translations: [Unspecified disorder of psychological development] 07-29-2024 Chronic Diabetes mellitus with complications (20 sources) Type 2 diabetes mellitus; Translations: [Type 2 diabetes mellitus with diabetic polyneuropathy] Onset: 02-20-2014 12-25-2018 Chronic Diabetes mellitus without complication (4 sources) Type 2 diabetes mellitus without complications; Translations: [Diabetes mellitus without mention of complication, type II or unspecified type, not stated as uncontrolled] Chronic Digestive congenital anomalies (13 sources) Disorder of stomach; 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, unspecified] 06-27-2022 Chronic Disorders of lipid metabolism (20 sources) Hyperlipidemia; Translations: [Hyperlipidemia, unspecified] Onset: 07-17-2005 04-23-2015 Chronic Epilepsy; convulsions (20 sources) Localization-related epilepsy; Translations: [Localization-related (focal) (partial) symptomatic epilepsy and epileptic syndromes with simple partial seizures, not intractable, without status epilepticus] Onset: 12-06-2022 12-06-2022 Chronic Essential hypertension (20 sources) Essential (primary) hypertension; Translations: [Essential hypertension] Onset: 10-10-2004 02-09-2020 Chronic Genitourinary symptoms and ill-defined conditions (20 sources) Urinary incontinence; Translations: [Unspecified urinary incontinence] Onset: 05-30-2021 Chronic Genitourinary symptoms and ill-defined conditions (3 sources) Increased frequency of urination; Translations: [Frequency of micturition] Episodic Hyperplasia of prostate (5 sources) Benign prostatic hypertrophy with outflow obstruction; Translations: [Benign prostatic hyperplasia with lower urinary tract symptoms] Chronic Immunizations and screening for infectious disease (2 sources) Vaccination needed; Translations: [Encounter for immunization] Episodic Intracranial injury (5 sources) History of traumatic brain injury; Translations: [Personal history of traumatic brain injury] 11-24-2022 Episodic Late effects of cerebrovascular disease (20 sources) Late effects of cerebrovascular disease; Translations: [Unspecified sequelae of unspecified cerebrovascular disease] Onset: 10-10-2004 10-31-2016 Chronic Malaise and fatigue (2 sources) Fatigue; Translations: [Chronic fatigue, unspecified] Chronic Mood disorders (2 sources) Depressive disorder; Translations: [Depression] 07-29-2024 Chronic Mycoses (6 sources) Onychomycosis; Translations: [Tinea unguium] Onset: 07-25-2024 06-21-2023 Episodic Nutritional deficiencies (16 sources) Vitamin D deficiency; Translations: [Vitamin D deficiency, unspecified] Onset: 11-10-2023 06-29-2021 Chronic Open wounds of extremities (3 sources) Open wound of toe; Translations: [Unspecified open wound of unspecified toe(s) without damage to nail, initial encounter] Onset: 09-12-2024 08-26-2024 Episodic Other and unspecified benign neoplasm (8 sources) Adenomatous polyp of rectum; Translations: [Benign neoplasm of rectum] 04-12-2022 Episodic Other and unspecified benign neoplasm (2 sources) Benign neoplasm of rectum; Translations: [Benign neoplasm of rectum and anal canal] 04-12-2022 Episodic Other and unspecified benign neoplasm (1 source) Benign neoplasm of soft tissue; Translations: [Melanocytic nevi, unspecified] 06-21-2023 Episodic Other circulatory disease (11 sources) Low blood pressure; Translations: [Hypotension, unspecified] Episodic Other circulatory disease (1 source) H/O: hypertension; Translations: [Personal history of other diseases of the circulatory system] 04-30-2023 Episodic Other circulatory disease (2 sources) Transient hypotension; Translations: [Hypotension, unspecified] 09-18-2023 Episodic Other circulatory disease (3 sources) History of cerebrovascular accident; Translations: [Personal history of transient ischemic attack (TIA), and cerebral infarction without residual deficits] 01-28-2024 Episodic Other connective tissue disease (5 sources) Pain of toe of left foot; Translations: [Pain in left toe(s)] 06-21-2023 Episodic Other connective tissue disease (5 sources) Pain of toe of right foot; Translations: [Pain in right toe(s)] 06-21-2023 Episodic Other connective tissue disease (1 source) Other symptoms and signs involving the musculoskeletal system; Translations: [Leg weakness, bilateral] Onset: 10-01-2024 Episodic Other connective tissue disease (1 source) Personal history of other diseases of the musculoskeletal system and connective tissue; Translations: [History of knee problem] Onset: 10-01-2024 Episodic Other connective tissue disease (1 source) Pain in left toe(s); Translations: [Pain in toe of left foot] Onset: 07-25-2024 Episodic Other connective tissue disease (1 source) Pain in right toe(s); Translations: [Pain in toe of right foot] Onset: 07-25-2024 Episodic Other diseases of bladder and urethra (20 sources) Overactive bladder; Translations: [Overactive bladder] Onset: 08-14-2018 08-14-2018 Chronic Other disorders of stomach and duodenum (3 sources) Gastroparesis syndrome; Translations: [Gastroparesis] 12-23-2023 Episodic Other ear and sense organ disorders (1 source) Impacted cerumen of bilateral ears; Translations: [Impacted cerumen, bilateral] 02-25-2024 Episodic Other gastrointestinal disorders (14 sources) Constipation; Translations: [Constipation, unspecified] 06-29-2021 Episodic Other gastrointestinal disorders (2 sources) Esophageal dysphagia; Translations: [Other dysphagia] 10-30-2023 Episodic Other lower respiratory disease (1 source) Cough; Translations: [Acute cough] 02-25-2024 Episodic Other nervous system disorders (12 sources) Metabolic encephalopathy; Translations: [Metabolic encephalopathy] 05-08-2021 Chronic Other nervous system disorders (1 source) Metabolic encephalopathy; Translations: [Metabolic encephalopathy] Chronic Other nervous system disorders (2 sources) Other chronic pain; Translations: [Bilateral chronic knee pain] Onset: 10-01-2024 Chronic Other nervous system disorders (12 sources) Tremor; Translations: [Tremor, unspecified] 10-15-2020 Episodic Other nervous system disorders (2 sources) H/O: epilepsy; Translations: [Personal history of other diseases of the nervous system and sense organs] 11-24-2022 Episodic Other non-traumatic joint disorders (4 sources) Pain in right knee; Translations: [Pain in joint, lower leg] Onset: 10-01-2024 10-07-2024 Episodic Other non-traumatic joint disorders (2 sources) Pain in left knee; Translations: [Bilateral chronic knee pain] Onset: 10-01-2024 Episodic Other nutritional; endocrine; and metabolic disorders (10 sources) Weight loss; Translations: [Abnormal weight loss] 10-03-2021 Episodic Other nutritional; endocrine; and metabolic disorders (12 sources) Abnormal weight loss; Translations: [Loss of weight] Episodic Other nutritional; endocrine; and metabolic disorders (15 sources) Unintentional weight loss; Translations: [Abnormal weight loss] 02-21-2022 Episodic Other nutritional; endocrine; and metabolic disorders (3 sources) Underweight; Translations: [Underweight] 09-10-2022 Episodic Other nutritional; endocrine; and metabolic disorders (4 sources) Weight decreased; Translations: [Abnormal weight loss] 10-03-2021 Episodic Other skin disorders (1 source) Foot callus; Translations: [Corns and callosities] 06-21-2023 Episodic Other skin disorders (1 source) Ingrowing nail of toe of left foot; Translations: [Ingrowing nail] 07-25-2024 Episodic Other skin disorders (2 sources) Ingrowing nail of toe of right foot; Translations: [Ingrowing nail] 07-25-2024 Episodic Other skin disorders (2 sources) Ingrowing toenail; Translations: [Ingrowing nail] 08-07-2024 Episodic Other skin disorders (2 sources) Ingrowing nail; Translations: [Ingrowing toenail of right foot] Onset: 07-25-2024 Episodic Other upper respiratory disease (1 source) Rhinitis; Translations: [Chronic rhinitis] 02-25-2024 Chronic Other upper respiratory disease (1 source) Chronic rhinitis; Translations: [Rhinitis, unspecified type] Onset: 02-25-2024 Chronic Other upper respiratory disease (1 source) Nasal congestion; Translations: [Nasal congestion] 02-25-2024 Episodic [place]-; endo-; and myocarditis; cardiomyopathy (except that caused by tuberculosis or sexually transmitted disease) (20 sources) Cardiomyopathy; Translations: [Cardiomyopathy, unspecified] Onset: 04-20-2014 04-23-2015 Chronic Residual codes; unclassified (2 sources) Insomnia; Translations: [Insomnia, unspecified] 07-29-2024 Episodic Residual codes; unclassified (1 source) Disturbance in sleep behavior; Translations: [Sleep disorder, unspecified] 08-18-2024 Episodic Septicemia (except in labor) (13 sources) Sepsis; Translations: [Sepsis, unspecified organism] Episodic Unclassified (1 source) Unknown / UNK(Unknown) Onset: 03-23-2017 Unclassified (1 source) 2 week follow up Onset: 08-18-2024 Unclassified (1 source) Acute cough; Translations: [Acute cough] Onset: 02-25-2024 Urinary tract infections (15 sources) Acute cystitis; Translations: [Acute cystitis with hematuria] Episodic Past or Other Problems Problem Classification Problem Date Documented Da te Episodic/Chronic Abdominal hernia (20 sources) Left inguinal hernia ; Translations: [Unilateral inguinal hernia, without obstruction or gangrene, not specified as recurrent] Onset: 05-16-2016 Resolved: 10-31-2016 10-31-2016 Episodic Coronary atherosclerosis and other heart disease (20 sources) Coronary atherosclerosis; Translations: [Atherosclerotic heart disease of [place] coronary artery with unspecified angina pectoris] Onset: 04-23-2015 Resolved: 07-19-2022 04-23-2015 Chronic Comment on above: 2016 Epilepsy; convulsions (20 sources) Seizure; Translations: [Unspecified convulsions] Onset: 10-10-2004 Resolved: 12-06-2022 04-21-2014 Episodic Fluid and electrolyte disorders (20 sources) Mild dehydration; Translations: [Dehydration] Onset: 06-30-2009 Resolved: 04-21-2014 06-26-2022 Episodic Malaise and fatigue (12 sources) Asthenia; Translations: [Weakness] Onset: 05-21-2024 03-16-2022 Episodic Other aftercare (1 source) Encounter for therapeutic drug level monitoring; Translations: [Encounter for therapeutic drug monitoring] Onset: 05-21-2024 Episodic Other aftercare (1 source) Other assistant terminal manager (current) drug therapy; Translations: [Encounter for long-term current use of medication] Onset: 11-10-2023 Episodic Other circulatory disease (20 sources) Orthostatic hypotension; Translations: [Orthostatic hypotension] Onset: 09-04-2022 Episodic Other disorders of stomach and duodenum (20 sources) Indigestion; Translations: [Functional dyspepsia] Onset: 05-19-2020 05-19-2020 Episodic Other ear and sense organ disorders (1 source) Impacted cerumen, bilateral; Translations: [Bilateral impacted cerumen] Onset: 02-25-2024 Episodic Other gastrointestinal disorders (12 sources) Constipation, unspecified; Translations: [Constipation, unspecified] Onset: 12-06-2023 Episodic Other gastrointestinal disorders (20 sources) Dysphagia; Translations: [Dysphagia, unspecified] Onset: 09-01-2021 Episodic Other gastrointestinal disorders (20 sources) Occult blood in stools; Translations: [Other fecal abnormalities] Onset: 08-28-2019 Resolved: 05-19-2020 05-19-2020 Episodic Other gastrointestinal disorders (1 source) Other dysphagia; Translations: [Other dysphagia] Onset: 01-01-2024 Episodic Other gastrointestinal disorders (1 source) Dysphagia, unspecified; Translations: [Dysphagia, unspecified] Onset: 11-09-2023 Episodic Other nervous system disorders (20 sources) Abnormal gait; Translations: [Unspecified abnormalities of gait and mobility] Onset: 04-20-2021 04-20-2021 Episodic Other nutritional; endocrine; and metabolic disorders (20 sources) Obesity; Translations: [Obesity, unspecified] Onset: 10-10-2004 Resolved: 10-31-2016 10-31-2016 Chronic Other nutritional; endocrine; and metabolic disorders (20 sources) Developmental delay; Translations: [Unspecified lack of expected normal physiological development in childhood] Onset: 10-10-2004 10-28-2015 Episodic Other nutritional; endocrine; and metabolic disorders (20 sources) Abnormal weight loss; Translations: [Abnormal weight loss] Onset: 09-01-2021 Episodic Other screening for suspected conditions (not mental disorders or infectious disease) (20 sources) Patient encounter status; Translations: [Encounter for screening for cardiovascular disorders] Onset: 10-10-2004 Resolved: 04-21-2014 Episodic Other upper respiratory disease (1 source) Nasal congestion; Translations: [Nasal congestion] Onset: 02-25-2024 Episodic Other upper respiratory infections (3 sources) Viral upper respiratory tract infection; Translations: [Acute upper respiratory infection, unspecified] Onset: 02-25-2024 02-25-2024 Episodic Residual codes; unclassified (20 sources) Family history of diabetes mellitus; Translations: [Family history of diabetes mellitus] Onset: 10-11-2004 Resolved: 04-12-2018 04-12-2018 Episodic Syncope (20 sources) Vasovagal syncope; Translations: [Syncope and collapse] Onset: 12-06-2022 06-26-2022 Episodic Results Test Name Value Interpretation Reference Range Facility CNTHERAPYon 10-07-2024 CNTHERAPY OT/PT/Speech Visit ( PTWS) ----- INNA ORTIZ ([id number]) 1955 M Date Time Provider Department 10/07/24 10:15 AM BOB PASCUAL PTWS Date Time Provider Department [place] 10/07/2024 10:15 AM [id number], COREY PTWS Robby Zaragoza Reason for Visit: PT Eval [747] Primary Visit Diagnosis:Bilateral chronic knee pain [M25.561, M25.562, G89.29] Allergies As of Date: 10/07/2024 Noted Allergy Reaction BANDAR INHIBITORS 10/15/2020 14 - Other: See Comments Comments: Cough, hypotension MACROBID (NITROFURANTOIN MONOHYD/*05/10/2021 2 - Rash CEFDINIR 05/05/2021 2 - Rash Date Reviewed: 10/01/2024 Reviewed by: Ambar Ladd APRN.RELIEF WORKER - Fully Assessed Prescriptions as of 10/07/2024 - meloxicam (MOBIC) 15 mg tablet Take 1 tablet by mouth once daily as needed for pain. - melatonin 3 mg capsules Take 3 mg by mouth daily at bedtime. - sertraline (ZOLOFT) 50 mg tablet Take 50 mg by mouth every morning. - XCOPRI TITRATION PACK 12.5 mg (14)- 25 mg (14) tablets in a dose pack Take by mouth once daily. - Menthol-Zinc Oxide (CALMOSEPTINE) 0.44-20.6 % Apply to affected area two times a day. - oxybutynin ER (DITROPAN XL) 10 mg 24 hr tablet Take 1 tablet by mouth once daily. - prazosin (MINIPRESS) 1 mg cap Take 1 capsule by mouth daily at bedtime. - lacosamide (VIMPAT) 150 mg tab Take 150 mg by mouth two times a day. - fluticasone (FLONASE) 50 mcg/actuation nasal spray Use 2 Sprays in each nostril once daily as needed. Rinse mouth after use. - simvastatin (ZOCOR) 20 mg tablet Take 1 tablet by mouth daily at bedtime. - blood sugar diagnostic (BLOOD GLUCOSE TEST) test strip Test blood sugar(s) 2 times daily. Dx: Type 2 DM - Uncontrolled E11.65 Insulin: No - famotidine (PEPCID) 20 mg tablet Take 1 tablet by mouth once daily. (Per GI) - docusate sodium (COLACE) 100 mg capsule Take 200 mg by mouth daily with breakfast. - Lactobacillus rhamnosus GG (CULTURELLE ORAL) Take 1 capsule by mouth once daily. - glucosamine/chondr victoria A sod (OSTEO BI-FLEX ORAL) Take by mouth once daily. - Lancets lancets Test blood sugar(s) two times daily. Dx: E11.9. Insulin: No - aspirin, enteric coated (ECOTRIN LOW STRENGTH) 81 mg EC tablet Take 1 tablet by mouth once daily. Meds Comments as of 02/21/2019: Time Study Clerk: Therapy (PT/OT/Speech/Resp) ID: [id number] 10/07/2024 10:44 AM Author: BOB PASCUAL Signed by BOB PASCUAL PT on 10/07/2024 at 10:44 AM Document text: Program_ID:[id number] Access Code: [email or web address] URL: [email or web address] Date: 10-07-2024 Prepared By: Bob Pascual Program Notes Exercises - Sit to Stand - 1 x daily - 7 x weekly - 3 sets - 10 reps - Seated Hamstring Stretch - 1 x daily - 7 x weekly - 3 sets - reps - Supine Active Straight Leg Raise - 1 x daily - 7 x weekly - 4 sets - 10 reps - Supine Active Straight Leg Raise - 1 x daily - 7 x weekly - 4 sets - 10 reps [facility] THERAPY NTon 10-07-2024 THERAPY NT HNO ID: [id number] Author: BOB PASCUAL PT Service: ? Author Type: Physical Therapist Type: Therapy (PT/OT/Speech/Resp) Filed: 10/07/2024 10:44 Note Text: Program_ID:[id number] Access Code: [email or web address] URL: [email or web address] Date: 10-07-2024 Prepared By: Bob Pascual Program Notes Exercises - Sit to Stand - 1 x daily - 7 x weekly - 3 sets - 10 reps - Seated Hamstring Stretch - 1 x daily - 7 x weekly - 3 sets - reps - Supine Active Straight Leg Raise - 1 x daily - 7 x weekly - 4 sets - 10 reps - Supine Active Straight Leg Raise - 1 x daily - 7 x weekly - 4 sets - 10 reps [facility] CNOVon 10-01-2024 CNOV Office Visit (INTMWS ) ----- INNA ORTIZ ([id number]) 1955 M Date Time Provider Department 10/01/24 1:00 PM JULEE, AMBAR INTMWS During your visit today, we recorded the following information about you: Pulse Respiration Blood pressure Weight 68/minute 14/minute 112/74 55.7 kg Ambar Ladd APRN.CNP 10/01/2024 1:31 PM Signed SUBJECTIVE Inna Ortiz is a 69 year old male here today for acute concern. Chief Complaint Patient presents with: Knee Pain: Bilateral x 2-3 weeks HPI Inna Ortiz is a 69-year-old male with a history of a CVA and arthritis, presenting with worsening left knee pain and gait changes. He is accompanied by his sister, who is providing history on his behalf. Inna's caregiver reports a several-week history of worsening left knee pain and instability, noting that the knee wants to turn in and that Inna has difficulty ambulating, sometimes requiring assistance to rise from a seated position. The caregiver also notes visible changes in the veins of the left leg, which are concerning to her. Inna has a history of a fall on ice and a CVA, after which he began dragging his left leg when walking for extended periods. He has a lifelong habit of crossing his legs, which the caregiver believes contributes to his current issues. Inna reportedly experiences significant pain in the left knee, which is exacerbated by movement and manipulation. The caregiver recounts an incident where Inna freaked out when his pants were pulled up over his knee, indicating severe pain. Inna has been using Bioflex pills and arthritis hot cream daily, but the caregiver does not believe these are effective. The caregiver also reports that Inna has been losing weight and muscle mass, particularly in his legs, which she attributes to decreased activity and lack of physical therapy. She notes that Inna was 122 lbs in July and is now 121.4 lbs. Recording using Ark[employer] software for draft documentation of the visit was discussed with the patient/authorized passenger representative; all questions welcomed and answered. Patient/authorized passenger representative agreed to proceed His medications were reviewed today and his list is now up to date. Medications Current Outpatient Medications Medication Sig melatonin 3 mg capsules Take 3 mg by mouth daily at bedtime. sertraline (ZOLOFT) 50 mg tablet Take 50 mg by mouth every morning. Menthol-Zinc Oxide (CALMOSEPTINE) 0.44-20.6 % Apply to affected area two times a day. oxybutynin ER (DITROPAN XL) 10 mg 24 hr tablet Take 1 tablet by mouth once daily. prazosin (MINIPRESS) 1 mg cap Take 1 capsule by mouth daily at bedtime. lacosamide (VIMPAT) 150 mg tab Take 150 mg by mouth two times a day. fluticasone (FLONASE) 50 mcg/actuation nasal spray Use 2 Sprays in each nostril once daily as needed. Rinse mouth after use. simvastatin (ZOCOR) 20 mg tablet Take 1 tablet by mouth daily at bedtime. blood sugar diagnostic (BLOOD GLUCOSE TEST) test strip Test blood sugar(s) 2 times daily. Dx: Type 2 DM - Uncontrolled E11.65 Insulin: No famotidine (PEPCID) 20 mg tablet Take 1 tablet by mouth once daily. (Per GI) docusate sodium (COLACE) 100 mg capsule Take 200 mg by mouth daily with breakfast. Lactobacillus rhamnosus GG (CULTURELLE ORAL) Take 1 capsule by mouth once daily. glucosamine/chondr victoria A sod (OSTEO BI-FLEX ORAL) Take by mouth once daily. Lancets lancets Test blood sugar(s) two times daily. Dx: E11.9. Insulin: No aspirin, enteric coated (ECOTRIN LOW STRENGTH) 81 mg EC tablet Take 1 tablet by mouth once daily. meloxicam (MOBIC) 15 mg tablet Take 1 tablet by mouth once daily as needed for pain. XCOPRI TITRATION PACK 12.5 mg (14)- 25 mg (14) tablets in a dose pack Take by mouth once daily. No current facility-administered medications for this visit. 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) - 04/20/2014 Type 2 Diabetes Mellitus With Polyneuropathy (Ltac, [facility]) - 02/20/2014 Comment: Chago, bilateral. Nail dystrophy. 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 [facility] XR KNEE 4V AP/PA/LAT/MERCH B ILon 10-01-2024 XR KNEE 4V AP/PA/LAT/MERCH SHEEBA * * *Final Report* * * DATE OF EXAM: Oct 01 2024 2:07PM WOX [id number] - XR KNEE 4V AP/PA/LAT/MERCH SHEEBA / PROCEDURE REASON: multiple diagnoses * * * * Physician Interpretation * * * * EXAMINATION / TECHNIQUE: XR KNEE 4V AP/PA/LAT/MERCH SHEEBA HISTORY: Chronic bilateral knee pain Chronic pain of both knees Chronic pain of both knees Chronic pain of both knees Leg weakness, bilateral COMPARISON: 11/29/2020. RESULT: No acute fracture or osseous malalignment is identified. The joint spaces are preserved. No joint effusion in either knee. IMPRESSION: No acute bony abnormality or significant osteoarthritis in either knee. Hand Stoner: PSCB Transcribe Date/Time: Oct 08 2024 8:03P Dictated by : MICHELLE OQUENDO MD This examination was interpreted and the report reviewed and electronically signed by: MICHELLE OQUENDO MD on Oct 08 2024 8:03PM EST [id number] [facility] CNOVon 09-12-2024 CNOV Office Visit (PODIWS ) ----- INNA ORTIZ ([id number]) 1955 M Date Time Provider Department 09/12/24 1:00 PM CLAUDETTE BRANCHIWS During your visit today, we recorded the following information about you: Cait Bah LPN 09/12/2024 1:30 PM Signed AMB ROOMING INTAKE FLOWSHEET DATA Patient presents with: Right Foot - Established Patient, Follow Up, Ingrown Nail SHRUTHI Hackett Matthew 09/12/2024 1:25 PM Signed - your wound is now healed. - You do not need to cover the nail bed with a bandage anymore. - Continue wearing a deep, roomy shoe so nothing rubs against the toe. - If you feel rubbing or pain on top of the toe, use the pad provided--but remove it periodically to prevent excess moisture Claudette Branch 09/12/2024 1:30 PM Signed Subjective Inna Ortiz is a 69-year-old male, accompanied by his who is providing history on his behalf, presenting for follow-up of a right great toe wound. Right Great Toe Wound: - Currently wearing a surgical shoe. - Right great toenail has been removed; new nail formation noted at the proximal base. - Inna's sister reports that he has been expressing pain in the toe. Cardiovascular: (+) right ankle swelling, (+) foot swelling Musculoskeletal: (+) right great toe pain, (+) back discomfort PAST MEDICAL HISTORY Diagnosis Date CONVULSIONS, OTHER [...] hypertension 10/10/2004 Current Outpatient Medications Medication Sig Dispense Refill melatonin 3 mg capsules Take 3 mg by mouth daily at bedtime. sertraline (ZOLOFT) 50 mg tablet Take 50 mg by mouth every morning. XCOPRI TITRATION PACK 12.5 mg (14)- 25 mg (14) tablets in a dose pack Take by mouth once daily. Menthol-Zinc Oxide (CALMOSEPTINE) 0.44-20.6 % Apply to affected area two times a day. 113 g 1 oxybutynin ER (DITROPAN XL) 10 mg 24 hr tablet Take 1 tablet by mouth once daily. 90 tablet 3 prazosin (MINIPRESS) 1 mg cap Take 1 capsule by mouth daily at bedtime. 90 capsule 3 lacosamide (VIMPAT) 150 mg tab Take 150 mg by mouth two times a day. fluticasone (FLONASE) 50 mcg/actuation nasal spray Use 2 Sprays in each nostril once daily as needed. Rinse mouth after use. 1 Each 5 simvastatin (ZOCOR) 20 mg tablet Take 1 tablet by mouth daily at bedtime. 90 tablet 3 blood sugar diagnostic (BLOOD GLUCOSE TEST) test strip Test blood sugar(s) 2 times daily. Dx: Type 2 DM - Uncontrolled E11.65 Insulin: No 200 Strip 3 famotidine (PEPCID) 20 mg tablet Take 1 tablet by mouth once daily. (Per GI) 90 tablet 2 docusate sodium (COLACE) 100 mg capsule Take 200 mg by mouth daily with breakfast. Lactobacillus rhamnosus GG (CULTURELLE ORAL) Take 1 [...] No current facility-administered medications for this visit. Family History Problem Relation Age of Onset Coronary Artery Disease Father Heart Father [place] AT AGE 63 COPD Sister Asthma Sister No Known Problems Maternal Grandmother No Known Problems Maternal Grandfather No Known Problems Paternal Grandmother No Known Problems Paternal Grandfather Colon Cancer Other Cancer Other LUNG Diabetes Other Emphysema Other Objective There were no vitals taken for this visit. - Cardiovascular: DP and PT pulses palpable bilaterally; capillary refill <5 seconds; skin temperature warm to cool bilaterally. - Skin: Diminished hair growth on both feet. - Musculoskeletal: - Right Foot: - Great toenail removed; nail bed healed without signs of infection, no drainage noted; new nail formation at proximal base. - Remaining toenails of both feet normal in length and thickness; no open sores noted. Labs: Tests: Imaging: - CT scan Assessment AND Plan 1. Open wound of toe, initial encounter (S91.109A) - Wound appears to be healing well; no further soaking is necessary. - Advised use of a deep shoe to prevent rubbing. - Provided a toe cap for protection, with instructions to remove periodically to prevent moisture accumulation and maceration. - Follow-up for nail care as needed. Recording using Arkami software for draft documentatio (more content not included)... [facility] ECHOon 09-02-2024 Echocardiography Echocardiography Rep ort: Transthoracic Echo [facility] Date of service: 09/02/2024 9:31:25 AM COORDINATOR Ordering physician: DL WHEELER Exam indication: Cardiomyopathy Technologist: Sobeida Johnston [facility] Interpreting physician: Hitesh James MD PATIENT: Name: MR. INNA ORTIZ : 1955 Age: 69 years Gender: M History of hypertension, diabetes mellitus and dyslipidemia. Primary rhythm: sinus. Height: 175.30 cm BSA: 1.65 m Weight: 55.60 kg BMI: 18.1 kg/m Heart rate 66 bpm Technically difficult exam due to suboptimal positioning and body habitus. Color Doppler was utilized to interrogate the cardiac valves assessed and spectral Doppler was utilized to determine the flow velocities and pressure gradients reported in this exam. MEASUREMENTS: Value Indexed Normal Max aortic dimension 3.0 cm Ao < 3.8 Left atrial volume 42 ml (biplane A-L) 25 ml/m Silvestre <= 34 LV ID (diastole) 5.3 cm (2D) 3.23 cm/m LV ID (systole) 4.3 cm (2D) 2.63 cm/m IVS, leaflet tips 0.9 cm (2D) Posterior wall thickness 0.7 cm (2D) Left ventricular mass 154 g (2D) 94 g/m LV stroke volume 48 ml (2D 4-ch.) LV end diastolic volume 110 ml (2D 4-ch.) 66.7 ml/m 34<=EDVi<75 LV end systolic volume 62 ml (2D 4-ch.) 37.6 ml/m Ejection Fraction 44 % (2D 4-ch.) EF > 52 FINDINGS: LEFT VENTRICLE The left ventricle is normal in size. Left ventricular systolic function is mildly decreased. Indeterminate left ventricular diastolic function. Mitral annular lateral E/e': 3.7. Mitral annular septal E/e': 4.9. Wall Motion: The entire apex is severely hypokinetic. The posterior wall, mid inferoseptal segment, and basal inferoseptal segment are mildly hypokinetic. All remaining scored segments are normal. RIGHT VENTRICLE The right ventricle is normal in size. Right ventricular systolic function is normal. RV systolic tissue Doppler velocity is 12.0 cm/s. Tricuspid annular displacement is 1.9 cm. Estimated right ventricular systolic pressure is not reported due to an insufficient tricuspid regurgitation signal. Estimated right atrial pressure is not included as the IVC was not seen. LEFT ATRIUM The left atrial cavity is normal in size. RIGHT ATRIUM The right atrial cavity is normal in size. MITRAL VALVE The mitral valve leaflets are structurally normal. There is mild (1+) mitral valve regurgitation. The pressure half time is 42 msec. The peak mitral E/A ratio is 1.32. The average mitral E/e' ratio is 4.3. The mitral flow deceleration time is 146 msec. TRICUSPID VALVE The tricuspid valve leaflets are structurally normal. There is trace tricuspid valve regurgitation. AORTIC VALVE The aortic valve cusps are structurally normal. There is mild (1+ - 2+) aortic valve regurgitation. Tricuspid aortic valve. The peak gradient is 4 mmHg (peak velocity = 97.9 cm/s). PULMONIC VALVE The pulmonic valve cusps are structurally normal. There is trace pulmonic valve regurgitation. AORTA The visualized aorta is normal in size. Measurements - Mid ascending aorta 3.0 cm. INTERATRIAL SEPTUM There is no evidence of intracardiac shunting as detected by Doppler. PERICARDIUM There is no pericardial effusion. CONCLUSIONS: - Technically difficult exam due to suboptimal positioning and body habitus. - Exam indication: Cardiomyopathy - The left ventricle is normal in size. Left ventricular systolic function is mildly decreased. EF = 44 5% (2D 4-ch.) Indeterminate left ventricular diastolic function. - The right ventricle is normal in size. Right ventricular systolic function is normal. - There are no significant valvular abnormalities. - Exam was compared with the prior CC echocardiographic exam performed on 09/14/2023, no significant change. * * * Final * * * [facility] [employer] [facility] Image : [id number] [facility] CNOVon 08-26-2024 CNOV Office Visit (PODIWS ) ----- INNA ORTIZ ([id number]) 1955 M Date Time Provider Department 08/26/24 10:45 AM CLAUDETTE BRANCH PODIWS During your visit today, we recorded the following information about you: Cait Bah LPN 08/26/2024 10:49 AM Signed AMB ROOMING INTAKE FLOWSHEET DATA Patient presents with: Right Foot - Established Patient, Follow Up, Ingrown Nail SHRUTHI Hackett Matthew 08/26/2024 10:31 AM Signed - Continue soaking your right big toe as you have been doing. After each soak, let the area air dry for about 20-30 minutes. - Gently pat the toe dry, then apply a very small amount of topical antibiotic (Neosporin) only to the bottom part; avoid heavy or heaping coats. - Cover the toe with a loosely applied bandage and change it daily to keep the area clean and dry. - Maintain this routine for about one more week. You?ll notice the tissue scabbing and peeling--this is normal and will slough off as the nail bed heals. - Your nail bed is healing well and the toenail will regrow over time; no permanent removal was done. - Watch for any signs of infection--new redness, increased pain, swelling, or drainage--and contact our office if these occur. - If you?d like a follow-up check, you can schedule a visit in 2-3 weeks to assess healing or in 2-3 months for toenail trimming. Claudette Branch 08/26/2024 10:49 AM Signed Subjective Inna Cunninghamer is a 69-year-old male, accompanied by his caregiver who is providing history on his behalf, presenting for follow-up of a recent toenail removal. Toenail Removal: - Recent removal of the right great toenail due to persistent redness and a previous Staphylococcus lugdunensis infection. - Caregiver reports only one instance of pain post-procedure. - Caregiver has been applying Neosporin and a Band-Aid after soaking the toe. - No known trauma to the toe post-procedure. Musculoskeletal: (-) right great toe pain PAST MEDICAL HISTORY Diagnosis Date CONVULSIONS, OTHER [...] hypertension 10/10/2004 Current Outpatient Medications Medication Sig Dispense Refill melatonin 3 mg capsules Take 3 mg by mouth daily at bedtime. sertraline (ZOLOFT) 50 mg tablet Take 50 mg by mouth every morning. XCOPRI TITRATION PACK 12.5 mg (14)- 25 mg (14) tablets in a dose pack Take by mouth once daily. Menthol-Zinc Oxide (CALMOSEPTINE) 0.44-20.6 % Apply to affected area two times a day. 113 g 1 oxybutynin ER (DITROPAN XL) 10 mg 24 hr tablet Take 1 tablet by mouth once daily. 90 tablet 3 prazosin (MINIPRESS) 1 mg cap Take 1 capsule by mouth daily at bedtime. 90 capsule 3 lacosamide (VIMPAT) 150 mg tab Take 150 mg by mouth two times a day. fluticasone (FLONASE) 50 mcg/actuation nasal spray Use 2 Sprays in each nostril once daily as needed. Rinse mouth after use. 1 Each 5 simvastatin (ZOCOR) 20 mg tablet Take 1 tablet by mouth daily at bedtime. 90 tablet 3 blood sugar diagnostic (BLOOD GLUCOSE TEST) test strip Test blood sugar(s) 2 times daily. Dx: Type 2 DM - Uncontrolled E11.65 Insulin: No 200 Strip 3 famotidine (PEPCID) 20 mg tablet Take 1 tablet by mouth once daily. (Per GI) 90 tablet 2 docusate sodium (COLACE) 100 mg capsule Take 200 mg by mouth daily with breakfast. Lactobacillus rhamnosus GG (CULTURELLE ORAL) Take 1 [...] No current facility-administered medications for this visit. Family History Problem Relation Age of Onset Coronary Artery Disease Father Heart Father [place] AT AGE 63 COPD Sister Asthma Sister No Known Problems Maternal Grandmother No Known Problems Maternal Grandfather No Known Problems Paternal Grandmother No Known Problems Paternal Grandfather Colon Cancer Other Cancer Other LUNG Diabetes Other Emphysema Other Objective There were no vitals taken for this visit. - Cardiovascular: Dorsalis pedis and posterior tibial pulses palpable bilaterally; capillary refill time <5 seconds in right hallux. - Skin: Warm temperature from proximal to distal; no erythema noted on the right foot. - Musculoskeletal: - Right G (more content not included)... [facility] CNOVon 08-18-2024 CNOV Office Visit (ROBERTH ) ----- INNA ORTIZ ([id number]) 1955 M Date Time Provider Department 08/18/24 2:20 PM DL WHEELER During your visit today, we recorded the following information about you: Pulse Blood pressure 70/minute 122/73 Dl Wheeler MD 08/18/2024 3:25 PM Signed Dl Wheeler MD Interventional Cardiology [address] [address] [id number] Chief Complaint Patient presents with: Follow Up HISTORY OF PRESENT ILLNESS: Mr. Ortiz is a 69 year old male seen in my office for follow-up prior history of nonischemic dilated cardiomyopathy and atrial fibrillation in the past with ejection fraction 42% by recent echo done in August 2023 he could not tolerate a blood pressure medication because of low blood pressure his blood pressure has been well-controlled off all medications no signs or symptoms of congestive heart failure Cardiac Risk Factors [...] Onset Coronary Artery Disease Father Heart Father [place] AT AGE 63 COPD Sister Asthma Sister No Known Problems Maternal Grandmother No Known Problems Maternal Grandfather No Known Problems Paternal Grandmother No Known Problems Paternal Grandfather Colon Cancer Other Cancer Other LUNG Diabetes Other Emphysema Other Social History Tobacco Use Smoking status: Never Smokeless tobacco: Never Vaping Use Vaping status: Never Used Substance Use Topics Alcohol use: No Drug use: No ALLERGIES Allergen Reactions Bandar Inhibitors Other: See Comments Cough, hypotension Macrobid [Nitrofura* Rash Cefdinir Rash Medications: Current Outpatient Medications Medication Sig Dispense Refill melatonin 3 mg capsules Take 3 mg by mouth daily at bedtime. sertraline (ZOLOFT) 50 mg tablet Take 50 mg by mouth every morning. XCOPRI TITRATION PACK 12.5 mg (14)- 25 mg (14) tablets in a dose pack Take by mouth once daily. Menthol-Zinc Oxide (CALMOSEPTINE) 0.44-20.6 % Apply to affected area two times a day. 113 g 1 oxybutynin ER (DITROPAN XL) 10 mg 24 hr tablet Take 1 tablet by mouth once daily. 90 tablet 3 prazosin (MINIPRESS) 1 mg cap Take 1 capsule by mouth daily at bedtime. 90 capsule 3 lacosamide (VIMPAT) 150 mg tab Take 150 mg by mouth two times a day. fluticasone (FLONASE) 50 mcg/actuation nasal spray Use 2 Sprays in each nostril once daily as needed. Rinse mouth after use. 1 Each 5 simvastatin (ZOCOR) 20 mg tablet Take 1 tablet by mouth daily at bedtime. 90 tablet 3 blood sugar diagnostic (BLOOD GLUCOSE TEST) test strip Test blood sugar(s) 2 times daily. Dx: Type 2 DM - Uncontrolled E11.65 Insulin: No 200 Strip 3 famotidine (PEPCID) 20 mg tablet Take 1 tablet by mouth once daily. (Per GI) 90 tablet 2 docusate sodium (COLACE) 100 mg capsule Take 200 mg by mouth daily with breakfast. Lactobacillus rhamnosus GG (CULTURELLE ORAL) Take 1 [...] flank pain, frequency, hematuria and urgency. Musculoskeletal: Neg (more content not included)... Normal [facility] CNOV Office Visit (INTMWS ) ----- INNA ORTIZ ([id number]) 1955 M Date Time Provider Department 08/18/24 9:00 AM AMBAR LADD INTMWS During your visit today, we recorded the following information about you: Pulse Blood pressure Weight 66/minute 114/64 55.6 kg Ambar Ladd APRN.RELIEF WORKER 08/18/2024 10:09 AM Signed SUBJECTIVE Inna Ortiz is a 69 year old male here today for a recheck. Chief Complaint Patient presents with: 2 week follow up: did have toe nail removed and is looking better HPI Inna Ortiz is a 69 year old male. He is an established patient of Eliza Zamora MD. Accompanied by sister and her significant other who are primary caregivers. HPI gathered from them. Here today for a recheck. Seen with Jasmin West on 08/06 for stage 1 pressure injury and ingrown toe nail. Seen with podiatry on 08/14 and ingrown toe nail removed. Doing well since this. They are applying a barrier cream to the area of concern on his buttock and this is significant improved. Also using pressure reducing measures. Log of blood pressures and blood sugars reviewed and overall stable. Some concerns of sleep issues, caregiver would like to try melatonin. His medications were reviewed today and his list is now up to date. Medications Current Outpatient Medications Medication Sig sertraline (ZOLOFT) 50 mg tablet Take 50 mg by mouth every morning. XCOPRI TITRATION PACK 12.5 mg (14)- 25 mg (14) tablets in a dose pack Take by mouth once daily. Menthol-Zinc Oxide (CALMOSEPTINE) 0.44-20.6 % Apply to affected area two times a day. oxybutynin ER (DITROPAN XL) 10 mg 24 hr tablet Take 1 tablet by mouth once daily. prazosin (MINIPRESS) 1 mg cap Take 1 capsule by mouth daily at bedtime. lacosamide (VIMPAT) 150 mg tab Take 150 mg by mouth two times a day. fluticasone (FLONASE) 50 mcg/actuation nasal spray Use 2 Sprays in each nostril once daily as needed. Rinse mouth after use. simvastatin (ZOCOR) 20 mg tablet Take 1 tablet by mouth daily at bedtime. famotidine (PEPCID) 20 mg tablet Take 1 tablet by mouth once daily. (Per GI) docusate sodium (COLACE) 100 mg capsule Take 200 mg by mouth daily with breakfast. nitroglycerin (NITROLINGUAL) 400 mcg/spray spray Dissolve 1 [place] under the tongue every 5 minutes as needed. Lactobacillus rhamnosus GG (CULTURELLE ORAL) Take 1 capsule by mouth once daily. glucosamine/chondr victoria A sod (OSTEO BI-FLEX ORAL) Take by mouth once daily. aspirin, enteric coated (ECOTRIN LOW STRENGTH) 81 mg EC tablet Take 1 tablet by mouth once daily. melatonin 3 mg capsules Take 3 mg by mouth daily at bedtime. NAYZILAM 5 mg/spray (0.1 mL) nasal spray Use 1 [place] in the nose as needed for seizures lasting longer than 5 minutes. blood sugar diagnostic (BLOOD GLUCOSE TEST) test strip Test blood sugar(s) 2 times daily. Dx: Type 2 DM - Uncontrolled E11.65 Insulin: No Lancets lancets Test blood sugar(s) two times daily. Dx: E11.9. Insulin: No No current facility-administered medications for this visit. 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) - 04/20/2014 Type 2 Diabetes Mellitus With Polyneuropathy ([facility], [facility]) - 02/20/2014 Comment: Chago, bilateral. Nail dystrophy. 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 Cardiovascular: Negative. OBJECTIVE BP 114/64 Pulse 66 Wt 122 lb 9.2 oz (55.6kg) SpO2 98% Physical Exam Vitals and nursing note reviewed. [...] Pulses: Normal pulses. Heart sounds: Normal heart (more content not included)... Normal [facility] CNOVon 08-14-2024 CNOV Office Visit (PODIWS ) ----- INNA ORTIZ ([id number]) 1955 M Date Time Provider Department 08/14/24 2:00 PM CLAUDETTE BRANCHS During your visit today, we recorded the following information about you: Adry Ricci, RN 08/16/2024 6:46 AM Signed Patient presents with: Right Foot - Established Patient, Follow Up, Ingrown Nail Patient presents for follow up ingrown toenail to the right hallux. Was started on antibiotics 08/06/24 but has since finished them and still experiencing some redness to the toe. Some redness to the medial nailbed and toe tip. SALVADOR 07/25/24 Claudette Branch 08/16/2024 6:46 AM Signed Subjective Inna Willis Ortiz is a 69-year-old male, accompanied by his legal guardian, presenting for follow-up of a persistent infection in the right great toe. Right Great Toe Infection: - Persistent redness in the right great toe, initially noted a few weeks ago. - Previously treated with doxycycline starting 07/25 and Bactrim starting 08/06, with no significant improvement. - Redness persists despite antibiotic treatment and nightly soaking. - No current drainage or significant pain reported. - Initial culture showed Staphylococcus lugdunensis. Musculoskeletal: (-) right great toe pain Skin: (+) right great toe redness, (-) right great toe drainage PAST MEDICAL HISTORY Diagnosis Date CONVULSIONS, OTHER [...] hypertension 10/10/2004 Current Outpatient Medications Medication Sig Dispense Refill sertraline (ZOLOFT) 50 mg tablet Take 50 mg by mouth every morning. XCOPRI TITRATION PACK 12.5 mg (14)- 25 mg (14) tablets in a dose pack Take by mouth once daily. Menthol-Zinc Oxide (CALMOSEPTINE) 0.44-20.6 % Apply to affected area two times a day. 113 g 1 oxybutynin ER (DITROPAN XL) 10 mg 24 hr tablet Take 1 tablet by mouth once daily. 90 tablet 3 prazosin (MINIPRESS) 1 mg cap Take 1 capsule by mouth daily at bedtime. 90 capsule 3 lacosamide (VIMPAT) 150 mg tab Take 150 mg by mouth two times a day. fluticasone (FLONASE) 50 mcg/actuation nasal spray Use 2 Sprays in each nostril once daily as needed. Rinse mouth after use. 1 Each 5 simvastatin (ZOCOR) 20 mg tablet Take 1 tablet by mouth daily at bedtime. 90 tablet 3 blood sugar diagnostic (BLOOD GLUCOSE TEST) test strip Test blood sugar(s) 2 times daily. Dx: Type 2 DM - Uncontrolled E11.65 Insulin: No 200 Strip 3 famotidine (PEPCID) 20 mg tablet Take 1 tablet by mouth once daily. (Per GI) 90 tablet 2 docusate sodium (COLACE) 100 mg capsule Take 200 mg by mouth daily with breakfast. nitroglycerin (NITROLINGUAL) 400 mcg/spray spray Dissolve 1 [place] under the tongue every 5 minutes as needed. 12 g 1 Lactobacillus rhamnosus GG (CULTURELLE ORAL) Take 1 capsule by mouth once daily. glucosamine/chondr victoria A sod (OSTEO BI-FLEX ORAL) Take by mouth once daily. Lancets lancets Test blood sugar(s) two times daily. Dx: E11.9. Insulin: No 100 Each 11 aspirin, enteric coated (ECOTRIN LOW STRENGTH) 81 mg EC tablet Take 1 tablet by mouth once daily. 0 doxycycline hyclate (VIBRAMYCIN) 100 mg capsule Take 1 capsule by mouth two times a day. (Patient not taking: Reported on 08/14/2024) 14 capsule 0 NAYZILAM 5 mg/spray (0.1 mL) nasal spray Use 1 [place] in the nose as needed for seizures lasting longer than 5 minutes. No current facility-administered medications for this visit. Family History Problem Relation Age of Onset Coronary Artery Disease Father Heart Father OH AT AGE 63 COPD Sister Asthma Sister No Known Problems Maternal Grandmother No Known Problems Maternal Grandfather No Known Problems Paternal Grandmother No Known Problems Paternal Grandfather Colon Cancer Other Cancer Other LUNG Diabetes Other Emphysema Other Objective There were no vitals taken for this visit. - Cardiovascular: DP and PT pulses palpable on the right foot; capillary refill time <5 seconds. - Skin: Skin temperature warm to cool. - Musculoskeletal: - Right Great Toe: - Slight swelling and erythema noted at the proximal medial nail border, extending to the central lateral border; no drainage observed. - Erythema persists with elevation. Labs: - Wound Culture: Staphylococcus lugdunensis identified Tests: Imaging: Assessment AND Plan 1. Ingrowing toenail of right foot (L60.0) - Persistent erythema and slight swelling noted at the pro (more content not included)... [facility] ----- INNA ORTIZ ([id number]) 1955 M Date Time Provider Department 08/11/24 CLAUDETTE BRANCH During your visit today, we recorded the following information about you: Lindsey Medina LPN 08/11/2024 8:14 AM Addendum Patients sister calling in wondering if patient can be seen sooner due to right big toe still being red and swollen. Patients sister states they say pcps office on Sunday and they put him on bactrim. SHRUTHI Huffman Amanda, BRIAN 08/12/2024 1:15 PM Signed Patient scheduled for this Allergies As of Date: 08/11/2024 Noted Allergy Reaction BANDAR INHIBITORS 10/15/2020 14 - Other: See Comments Comments: Cough, hypotension MACROBID (NITROFURANTOIN MONOHYD/*05/10/2021 2 - Rash CEFDINIR 05/05/2021 2 - Rash Date Reviewed: 08/06/2024 Reviewed by: Sandhya Kang MA - Fully Assessed Prescriptions as of 08/12/2024 - sertraline (ZOLOFT) 50 mg tablet Take 50 mg by mouth every morning. - XCOPRI TITRATION PACK 12.5 mg (14)- 25 mg (14) tablets in a dose pack Take by mouth once daily. - sulfamethoxazole-trimetho prim (BACTRIM DS) 800-160 mg per tablet Take 1 tablet by mouth two times a day for 7 days. - Menthol-Zinc Oxide (CALMOSEPTINE) 0.44-20.6 % Apply to affected area two times a day. - doxycycline hyclate (VIBRAMYCIN) 100 mg capsule Take 1 capsule by mouth two times a day. - oxybutynin ER (DITROPAN XL) 10 mg 24 hr tablet Take 1 tablet by mouth once daily. - prazosin (MINIPRESS) 1 mg cap Take 1 capsule by mouth daily at bedtime. - lacosamide (VIMPAT) 150 mg tab Take 150 mg by mouth two times a day. - fluticasone (FLONASE) 50 mcg/actuation nasal spray Use 2 Sprays in each nostril once daily as needed. Rinse mouth after use. - simvastatin (ZOCOR) 20 mg tablet Take 1 tablet by mouth daily at bedtime. - NAYZILAM 5 mg/spray (0.1 mL) nasal spray Use 1 [place] in the nose as needed for seizures lasting longer than 5 minutes. - blood sugar diagnostic (BLOOD GLUCOSE TEST) test strip Test blood sugar(s) 2 times daily. Dx: Type 2 DM - Uncontrolled E11.65 Insulin: No - famotidine (PEPCID) 20 mg tablet Take 1 tablet by mouth once daily. (Per GI) - docusate sodium (COLACE) 100 mg capsule Take 200 mg by mouth daily with breakfast. - nitroglycerin (NITROLINGUAL) 400 mcg/spray spray Dissolve 1 [place] under the tongue every 5 minutes as needed. - Lactobacillus rhamnosus GG (CULTURELLE ORAL) Take 1 capsule by mouth once daily. - glucosamine/chondr victoria A sod (OSTEO BI-FLEX ORAL) Take by mouth once daily. - Lancets lancets Test blood sugar(s) two times daily. Dx: E11.9. Insulin: No - aspirin, enteric coated (ECOTRIN LOW STRENGTH) 81 mg EC tablet Take 1 tablet by mouth once daily. Meds Comments as of 02/21/2019: Problem List As Of Date 08/11/2024 Noted Resolved Late effects of cerebrovascular disease [...] Cardiomyopathy, nonischemic (HCC) [I42.8] 04/20/2014 Atherosclerosis of [place] coronary artery of na*04/23/2015 07/19/2022 Left inguinal hernia [K40.90] 05/16/2016 10/31/2016 Overactive bladder [N32.81] 08/14/2018 Occult GI bleeding [R19.5] 08/28/2019 05/19/2020 Acid indigestion [K30] 05/19/2020 Gait abnormality [R26.9] 04/20/2021 Urinary incontinence [R32] 05/30/2021 Weight loss, abnormal [R63.4] 09/01/2021 Dysphagia [R13.10] 09/01/2021 Orthostatic hypotension [I95.1] [I95.1] 09/04/2022 Seizure-like activity (HCC) [R56.9] 12/04/2022 12/06/2022 Focal epilepsy (HCC) [G40.109] 12/06/2022 Syncope and collapse [R55] 12/06/2022 Chronic diastolic congestive heart failure (HCC*03/03/2024 Encounter Status:Closed by ADRY RICCI on 08/12/24 [facility] 08-07-2024 [facility] Telephone (MARIELA) ----- INNA ORTIZ ([id number]) 1955 M Date Time Provider Department 08/07/24 YAZ ROGERS During your visit today, we recorded the following information about you: Yaz Rogers MSW 08/07/2024 11:48 AM Signed Patient sister Angie reports that they found a gel cushion in their home that patient mom used to use. Angie said it it an egg sitter cushion that helps with cushion and cooling. Angie notes that patient can use this cushion. Ximena also asked Angie if patient has AAA services through [employer]. Angie noted that they have an aide come in periodically but not sure what service center aide is through. Ximena noted if patient and family need any more assistance to feel free to reach out to this SW. Angie thanked Ximena for the call. Allergies As of Date: 08/07/2024 Noted Allergy Reaction BANDAR INHIBITORS 10/15/2020 14 - Other: See Comments Comments: Cough, hypotension MACROBID (NITROFURANTOIN MONOHYD/*05/10/2021 2 - Rash CEFDINIR 05/05/2021 2 - Rash Date Reviewed: 08/06/2024 Reviewed by: Sandhya Kang MA - Fully Assessed Prescriptions as of 08/07/2024 - sertraline (ZOLOFT) 50 mg tablet Take 50 mg by mouth every morning. - XCOPRI TITRATION PACK 12.5 mg (14)- 25 mg (14) tablets in a dose pack Take by mouth once daily. - sulfamethoxazole-trimetho prim (BACTRIM DS) 800-160 mg per tablet Take 1 tablet by mouth two times a day for 7 days. - Menthol-Zinc Oxide (CALMOSEPTINE) 0.44-20.6 % Apply to affected area two times a day. - doxycycline hyclate (VIBRAMYCIN) 100 mg capsule Take 1 capsule by mouth two times a day. - oxybutynin ER (DITROPAN XL) 10 mg 24 hr tablet Take 1 tablet by mouth once daily. - prazosin (MINIPRESS) 1 mg cap Take 1 capsule by mouth daily at bedtime. - lacosamide (VIMPAT) 150 mg tab Take 150 mg by mouth two times a day. - fluticasone (FLONASE) 50 mcg/actuation nasal spray Use 2 Sprays in each nostril once daily as needed. Rinse mouth after use. - simvastatin (ZOCOR) 20 mg tablet Take 1 tablet by mouth daily at bedtime. - NAYZILAM 5 mg/spray (0.1 mL) nasal spray Use 1 [place] in the nose as needed for seizures lasting longer than 5 minutes. - blood sugar diagnostic (BLOOD GLUCOSE TEST) test strip Test blood sugar(s) 2 times daily. Dx: Type 2 DM - Uncontrolled E11.65 Insulin: No - famotidine (PEPCID) 20 mg tablet Take 1 tablet by mouth once daily. (Per GI) - docusate sodium (COLACE) 100 mg capsule Take 200 mg by mouth daily with breakfast. - nitroglycerin (NITROLINGUAL) 400 mcg/spray spray Dissolve 1 [place] under the tongue every 5 minutes as needed. - Lactobacillus rhamnosus GG (CULTURELLE ORAL) Take 1 capsule by mouth once daily. - glucosamine/chondr victoria A sod (OSTEO BI-FLEX ORAL) Take by mouth once daily. - Lancets lancets Test blood sugar(s) two times daily. Dx: E11.9. Insulin: No - aspirin, enteric coated (ECOTRIN LOW STRENGTH) 81 mg EC tablet Take 1 tablet by mouth once daily. Meds Comments as of 02/21/2019: Problem List As Of Date 08/07/2024 Noted Resolved Late effects of cerebrovascular disease [...] Cardiomyopathy, nonischemic (HCC) [I42.8] 04/20/2014 Atherosclerosis of [place] coronary artery of na*04/23/2015 07/19/2022 Left inguinal hernia [K40.90] 05/16/2016 10/31/2016 Overactive bladder [N32.81] 08/14/2018 Occult GI bleeding [R19.5] 08/28/2019 05/19/2020 Acid indigestion [K30] 05/19/2020 Gait abnormality [R26.9] 04/20/2021 Urinary incontinence [R32] 05/30/2021 Weight loss, abnormal [R63.4] 09/01/2021 Dysphagia [R13.10] 09/01/2021 Orthostatic hypotension [I95.1] [I95.1] 09/04/2022 Seizure-like activity (HCC) [R56.9] 12/04/2022 12/06/2022 Focal epilepsy (HCC) [G40.109] 12/06/2022 Syncope and collapse [R55] 12/06/2022 Chronic diastolic congestive heart failure (HCC*03/03/2024 Encounter Status:Closed by YAZ ROGERS on 08/07/24 [facility] CNOVon 08-06-2024 CNOV Office Visit (INTMWS ) ----- INNA ORTIZ ([id number]) 1955 M Date Time Provider Department 08/06/24 3:20 PM JASMIN WEST During your visit today, we recorded the following information about you: Pulse Respiration Blood pressure Weight 72/minute 16/minute 122/68 55.3 kg Jasmin West APRN.CNP 08/06/2024 3:54 PM Signed - Apply the calmoceptine cream sent to your pharmacy to the red area on your lower backside (coccyx) twice a day to protect your skin and reduce friction. - Take the trimethoprim-sulfamethoxa zole (Bactrim) antibiotic as prescribed for your toe infection; watch for diarrhea and continue your Metamucil and mineral oil unless diarrhea develops. - Continue daily Epsom salt soaks (10 minutes) for your big toe, and use the toe cushioning patches on your hammertoe; wear comfortable, well-fitting shoes. - Every 1-2 hours, shift your position by folding a towel or using a pillow under one hip and then the other, and stand or walk briefly if you can. - Keep your skin clean and pat dry after any incontinence episodes to prevent moisture breakdown. Jasmin West APRN.RELIEF WORKER 08/07/2024 4:21 PM Signed CC: Patient presents with: Wound Evaluation: Possible pressure wound on buttocks HPI Inna Ortiz is a 69 year old male who presents today for concerns for possible pressure injury. Recording using [employer] software for draft documentation of the visit was discussed with the patient/authorized passenger representative; all questions welcomed and answered. Patient/authorized passenger representative agreed to proceed Right Great Toe Infection: - Recent infection in the right great toenail, described as red. - Culture performed by Dr. Branch approximately one week ago. - Treated with doxycycline and an ointment for one week; also soaking in Epsom salt. - Toenail appears pink in the morning and more red in the evening. - Concerns about potential interference with gait due to a hammertoe on the middle toe. - Next follow-up with Dr. Branch in three months. Denies fever, chill, drainage, or red streaking Pressure Ulcer Concerns: - Redness observed on the buttocks, described as really, really red. Noted by caregiver at day program - Use of a donut cushion to alleviate pressure. - Inna's buttocks appear tense, possibly due to discomfort. - Redness also noted on the side of the leg. - Inna frequently urinates due to BPH, requiring frequent movement. - Uses Depends at night; skin often soaked in the morning. - Inna sleeps on his side, alternating left and right positions. - No creams or ointments currently used on the skin. - sister is caregiver at home. - patient does get up and walk to bathroom but prefers to stay seated in chair REVIEW OF SYSTEMS See HPI PAST MEDICAL HISTORY Diagnosis Date CONVULSIONS, OTHER [...] Inhibitors, Macrobid [Nitrofurantoin Monohyd/M-Cryst], and Cefdinir MEDICATIONS sertraline (ZOLOFT) 50 mg tablet Take 50 mg by mouth every morning. XCOPRI TITRATION PACK 12.5 mg (14)- 25 mg (14) tablets in a dose pack Take by mouth once daily. sulfamethoxazole-trimetho prim (BACTRIM DS) 800-160 mg per tablet Take 1 tablet by mouth two times a day for 7 days. Menthol-Zinc Oxide (CALMOSEPTINE) 0.44-20.6 % Apply to affected area two times a day. doxycycline hyclate (VIBRAMYCIN) 100 mg capsule Take 1 capsule by mouth two times a day. oxybutynin ER (DITROPAN XL) 10 mg 24 hr tablet Take 1 tablet by mouth once daily. prazosin (MINIPRESS) 1 mg cap Take 1 capsule by mouth daily at bedtime. lacosamide (VIMPAT) 150 mg tab Take 150 mg by mouth two times a day. fluticasone (FLONASE) 50 mcg/actuation nasal spray Use 2 Sprays in each nostril once daily as needed. Rinse mouth after use. simvastatin (ZOCOR) 20 mg tablet Take 1 tablet by mouth daily at bedtime. NAYZILAM 5 mg/spray (0.1 mL) nasal spray Use 1 [place] in the nose as needed for seizures lasting longer than 5 minutes. blood sugar diagnostic (BLOOD GLUCOSE TEST) test strip Test blood sugar(s) 2 times daily. Dx: Type 2 DM - Uncontrolled E11.65 Insulin: No famotidine (PEPCID) 20 mg tablet Take 1 tablet by mouth once daily. (Per GI) docusa (more content not included)... Normal [facility] Gastroenterology Visit Repor ton 07-30-2024 Gastroenterology Visit Report [facility] Gastroenterology [address] [place] [address] OFFICE VISIT Date of Service: 07/30/24 MR#: [id number] Acct: [id number] Name: INNA ORTIZ Rep #: [id number] : 1955 Provider: Diomedes Bey DO Age/Sex: 69/M [place] [facility] [place] Status: Signed Intake Vital Signs 01/28/24 10:06 Height 5 ft 9 in Intake Visit Reasons: 3 M FU Allergies cefdinir Allergy (Verified 07/29/24 10:35) Rash nitrofurantoin (From Macrobid) Allergy (Verified 07/29/24 10:35) Rash BANDAR Inhibitors Adverse Reaction (Severe, Verified 07/29/24 10:35) hypotension, cough Medications ???Medication ???Instructions ???Recorded ???Confirmed ???Type aspirin 81 mg chewable tablet 81 mg PO DAILY@0800 05/30/1607/30 History simvastatin 20 mg tablet 20 mg PO QHS 05/30/16 07/30/24 His tory nitroglycerin 400 mcg/spray 0.4 mg translingual Q3-5M PRN 09/2707/30/24 Rx translingual Cardiac/Chest Pain #4.9 grams oxybutynin chloride 10 mg 10 mg PO DAILY BLADDER 04/28/21 History tablet,extended release 24 hr fluticasone propionate 50 2 spray intranasal DAILY 09/29/21 07/30/24 History mcg/actuation nasal spray,suspension (Flonase Allergy Relief) glucosamine-chondroitin 250 mg-200 1 tab PO QPC 09/29/21 07/30/24 H istory mg tablet (Osteo Bi-Flex) docusate sodium 100 mg capsule 200 mg PO DAILY 09/25/23 07/30/24 History docusate sodium 50 mg capsule 200 mg PO DAILY 09/25/23 07/30/24 History midazolam 5 mg/spray (0.1 mL) See Rx Instructions .Route 07/30/24 Rx nasal spray (Nayzilam) .COMPLEX #2 ea Held on 10/11/23. Instructions: INSURANCE REFUSING TO PAY prazosin 1 mg capsule 1 mg PO QPM #30 caps 02/04/2406/20 Rx famotidine 20 mg tablet 20 mg PO DAILY #90 tabs 03/03/24 0 07/30/24 Rx cenobamate 100 mg tablet (Xcopri) 100 mg PO DAILY #30 tabs 07/29/24 07/30/24 Rx cenobamate 12.5 mg (14)-25 mg (14) See Rx Instructions PO PER PKG D IR 07/29/24 07/30/24 Rx tablets in a dose pack (Xcopri #28 tabs Titration Pack) cenobamate 50 mg (14)-100 mg (14) See Rx Instructions PO PER PKG DI R 07/29/24 07/30/24 Rx tablets in a dose pack (Xcopri #28 tabs Titration Pack) lacosamide 150 mg tablet 150 mg PO BID #60 tabs 07/29/24 Rx sertraline 50 mg tablet 50 mg PO QAM #30 tabs 07/29/2406/20 Rx melatonin 3 mg capsule 3 mg PO HS PRN 07/30/24 07/30/24 H istory Have you fallen in the past year?: No PFSH Medical History Concave nail Bruising Diabetes Back pain Injury of head and neck Seizures Gastric reflux Chronic cough Cardiology follow-up encounter History of echocardiogram History of heart attack Chest pain Urinary incontinence Gait abnormality Acid indigestion Overactive bladder Atherosclerosis of coronary artery 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 TBI (traumatic brain injury) History of stroke Old myocardial infarction CHF (congestive heart failure) Cardiomyopathy in disease classified elsewhere Type 2 diabetes mellitus Pure hypercholesterolemia Essential hypertension Surgical History History of esophagogastroduodenoscop y (EGD) History of colonoscopy Hx of inguinal hernia repair Family History Mother CAD (coronary artery disease) Diabetes Hypertension Father Myocardial infarction, Onset Age: 68 Social History Smoking Status: Never smoker alcohol intake: never substance use type: does not use caffeine: Yes Type: carbonated beverages HPI HPI Details: INNA ORTIZ, is a 69 M who presents to the office today for follow up. BGI established 9.29.22 for weight loss and epigastric pain. Caregiver is concerned about Metformin use.??? Biochemical???ESR, haptoglobin, amylase, PSA, LDH, CRP, BANDAR, A1c, CPK, lipase, ceruloplasmin, ferritin, ammonia, copper, aldolase, CA 19-9, CEA, coag, GAME, JESUSITA comp, DOMINICK, ANCA, celiac, ASM, AMA without pertinent abnormality.??? Stool elastase, c.difficile (formed), EP, O/P, giardia WNL.?Calprotectin H121, lactoferrin +??? OV 12..22 for unintentional weight loss of 20lbs in 9 months. Reports good appetite eating 3 full meals/day, snacks and protein supplement. Occasionally points to epigastrium an says it hurts.?CT abd/pel 03.06.22???enlarged prostate with evidence of central density calcification.?EGD and colonoscopy 2.03.20???EGD irregular Zline 37cm.?Colon oscopy 5mm rectal TA [place] (more content not included)... Normal [facility] Neurology Visit Reporton Neurology Visit Report [facility] [address] [facility] [address] [place] [id number] OFFICE VISIT Date of Service: 07/29/24 MR#: [id number] Acct: [id number] Name: INNA ORTIZ Rep #: [id number] : 1955 Provider: Dr. Tom domingo MD Age/Sex: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 [place] [address] Performed By: #### 5 7021-8 ####[facility] [id number] [address] [place] [address] [place] Nucleated RBC/100 WBC (Bld) [Ratio] 0.0 /100 WBC Normal [facility] Comment on above: Order Comment: Speci men Type: BLOOD SPECIMENOrdering Facility: [facility] Address: [address] [place] [address] Performed By: #### 5 7021-8 ####[facility] LABIA [id number] [address], [place] [address] [place] Platelet mean volume (Bld) [Entitic vol] 9.9 fL Normal 9.0-12.7 [facility] Comment on above: Order Comment: Speci men Type: BLOOD SPECIMENOrdering Facility: [facility] Address: [address] [place] [address] Performed By: #### 5 7021-8 ####[facility]IA [id number] [address], [facility] [place] Platelets (Bld) [#/Vol] 209 10*3/uL Normal 150-400 [facility] Comment on above: Order Comment: Speci men Type: BLOOD SPECIMENOrdering Facility: [facility] Address: [address] [place] [address] Performed By: #### 5 7021-8 ####[facility] [id number] [facility] [address] [place] [address] [place] RBC (Bld) [#/Vol] 5.27 10*6/uL Normal 4.20-6.00 [facility] Comment on above: Order Comment: Speci men Type: BLOOD SPECIMENOrdering Facility: [facility] Address: [address] [place] [address] Performed By: #### 5 7021-8 ####[facility] [id number] [place] [address] [place] WBC (Bld) [#/Vol] 5.83 10*3/uL Normal 3.70-11.00 [facility] Comment on above: Order Comment: Speci men Type: BLOOD SPECIMENOrdering Facility: [facility] Address: [address] [place] [address] Performed By: #### 5 7021-8 ####[facility] [id number] [address] [place] CNOVon 05-21-2024 CNOV Office Visit (INTMWS ) ----- MARYINNA URBAN ([id number]) 1955 M Date Time Provider Department 05/21/24 8:20 AM AMBAR LADD INTMWS During your visit today, we recorded the following information about you: Temperature Pulse Blood pressure Weight 98.2 degrees 62/minute 138/78 54.6 kg Ambar Ladd APRN.RELIEF WORKER 05/21/2024 2:53 PM Signed SUBJECTIVE Inna Ortiz is a 69 year old male here today for a check up on his medical problems. Chief Complaint Patient presents with: F/U 6 months: more fatigue, increase incontinence, blood sugars and blood pressure is elevated HPI Inna Ortiz is a 69 year old male. Pt presents with family and sister who is caregiver. Pt is here today for multiple concerns. Sister keeps daily diary of blood pressure and blood glucose. She has noted that his BP seems to be more elelvated , for him and blood sugars seem to be on the rise. Highest recorded fasting BS 166. With BP 115/70( he is usually under 100 SBP). He also seems to be sleeping more often and less verbal then in the past. He also seems to be more incontinent then normal. Using 4-5 briefs in a day , whereas usually only keeping one on for accidents. She also is concerned as his seizures seem to be more frequent, 1-2 a month where he usually would go a few months in between prior. She notes changing in caretakers lately may play a role and unsure if they are paying as close attention to his needs as they do and has had some inconsistent caregivers. He does have chronic constipation which they have seen GI for and added mineral oil. Follows with neurology who had increased his dose of Vimpat in March. Otherwise not other new medications. His medications were reviewed today and his list is now up to date. He is compliant on taking his medications: Yes He is tolerating his medication(s) without side effects: Yes He is following an appropriate diet for his medical problems: Yes He is getting some exercise in? N/A He has visited another health care provider since being seen last? :Yes He has had a visit to the emergency department or hospital since being seen last? No, Medications Current Outpatient Medications Medication Sig prazosin (MINIPRESS) 1 mg cap Take 1 capsule by mouth daily at bedtime. lacosamide (VIMPAT) 50 mg (14)- 100 mg (14) DsPk Take 100 mg by mouth two times a day. fluticasone (FLONASE) 50 mcg/actuation nasal spray Use 2 Sprays in each nostril once daily as needed. Rinse mouth after use. simvastatin (ZOCOR) 20 mg tablet Take 1 tablet by mouth daily at bedtime. NAYZILAM 5 mg/spray (0.1 mL) nasal spray Use 1 [place] in the nose as needed for seizures lasting longer than 5 minutes. blood sugar diagnostic (BLOOD GLUCOSE TEST) test [...] 200 mg by mouth daily with breakfast. nitroglycerin (NITROLINGUAL) 400 mcg/spray spray Dissolve 1 [place] under the tongue every 5 minutes as needed. Lactobacillus rhamnosus GG (CULTURELLE ORAL) Take 1 [...] Cough, hypotension Macrobid [Nitrofura* Rash Cefdinir Rash ACTIVE PROBLEM LIST Chronic Diastolic Congestive Heart Failure (Hcc) - 03/03/2024 Focal Epilepsy (Ltac, 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) - 04/20/2014 Type 2 Diabetes Mellitus With Polyneuropathy ([facility]tac, [facility]) - 02/20/2014 Comment: Hammbrenda, bilateral. Nail dystrophy. 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 Negative for appetite change, chills, diaphoresis and fever. HENT: Negative. Respiratory: Negative. Cardiovascular: Negative. Gastrointestinal: Negative. Genit (more content not included)... Normal [facility] Comprehensive metabolic 2000 panelon 05-21-2024 Albumin [Mass/Vol] 4.2 g/dL Normal 3.9-4.9 [facility] Comment on above: Order Comment: Speci men Type: BLOOD SPECIMENOrdering Facility: [facility] Address: [address] [place] [address] Performed By: #### 2 4323-8 ####[facility]ORYCLIA [id number] [place] [address] [place] ALP [Catalytic activity/Vol] 77 U/L Normal 38-113 [facility] Comment on above: Order Comment: Speci men Type: BLOOD SPECIMENOrdering Facility: [facility] Address: [address] [place] [address] Performed By: #### 2 4323-8 ####[facility]ORYCLIA [id number] [place] [address] [place] ALT [Catalytic activity/Vol] 10 U/L Normal 10-54 [facility] Comment on above: Order Comment: Speci men Type: BLOOD SPECIMENOrdering Facility: [facility] Address: [address] [place] [address] Performed By: #### 2 4323-8 ####[facility]ORYCLIA [id number] [place] [address] [place] Anion gap [Moles/Vol] 9 mmol/L Normal 8-15 [facility] Comment on above: Order Comment: Speci men Type: BLOOD SPECIMENOrdering Facility: [facility] Address: [address] [place] [address] Performed By: #### 2 4323-8 ####[facility] [id number] [place] [address] [place] AST [Catalytic activity/Vol] 18 U/L Normal 14-40 [facility] Comment on above: Order Comment: Speci men Type: BLOOD SPECIMENOrdering Facility: [facility] Address: [address] [place] [address] Performed By: #### 2 4323-8 ####[facility] [id number] [place] [address] [place] Bilirubin [Mass/Vol] 0.4 mg/dL Normal 0.2-1.3 [facility] Comment on above: Order Comment: Speci men Type: BLOOD SPECIMENOrdering Facility: [facility] Address: [address] [place] [address] Performed By: #### 2 4323-8 ####[facility]ORYCLIA [id number] [place] [address] [place] Calcium [Mass/Vol] 9.7 mg/dL Normal 8.5-10.2 [facility] Comment on above: Order Comment: Speci men Type: BLOOD SPECIMENOrdering Facility: [facility] Address: [address] [place] [address] Performed By: #### 2 4323-8 ####[facility]ORYCLIA [id number] [place] [address] [place] Chloride [Moles/Vol] 102 mmol/L Normal 98-107 [facility] Comment on above: Order Comment: Speci men Type: BLOOD SPECIMENOrdering Facility: [facility] Address: [address] [place] [address] Performed By: #### 2 4323-8 ####[facility]ORYCLIA [id number] [place] [address] [place] CO2 [Moles/Vol] 28 mmol/L Normal 22-30 [facility] Comment on above: Order Comment: Speci men Type: BLOOD SPECIMENOrdering Facility: [facility] Address: [address] [place] [address] Performed By: #### 2 4323-8 ####[facility]ORYCLIA [id number] [place] [id number] [place] Creatinine [Mass/Vol] 1.00 mg/dL Normal 0.73-1.22 [facility] Comment on above: Order Comment: Speci men Type: BLOOD SPECIMENOrdering Facility: [facility] Address: [address] [place] [address] Performed By: #### 2 4323-8 ####[facility]ATORYCLIA [id number] [place] [address] [place] Creatinine and Glomerular filtration rate.predicted panel (S/P/Bld) 82 mL/min/1.73m??? Normal >=60 [facility] Comment on above: Order Comment: Jt pierre Type: BLOOD SPECIMENOrdering Facility: [facility] Address: [address] [place] [address] Result Comment: [place] mated Glomerular Filtration Rate (eGFR) is calculated using the 2020 CKD-EPI creatinine equation. This equation utilizes serum creatinine, sex, and age as parameters. The creatinine assay has traceable calibration to isotope dilution-mass spectrometry. Refer to KDIGO guidelines for clinical interpretation. In patients with unstable renal function, e.g. those with acute kidney injury, the eGFR may not accurately reflect actual GFR. Performed By: #### 2 4323-8 ####[facility] LABORATORYCLIA [id number] [place] [address] [place] Glucose [Mass/Vol] 146 mg/dL High 74-99 [facility] Comment on above: Order Comment: Jt pierre Type: BLOOD SPECIMENOrdering Facility: [facility] Address: [address] [place] [address] Result Comment: The [place] Diabetes Association (ADA) provides guidance for cutoff values for fasting glucose and random glucose. The ADA defines fasting as no caloric intake for at least 8 hours. Fasting plasma glucose results between 100 to 125 mg/dL indicate increased risk for diabetes (prediabetes). Fasting plasma glucose results greater than or equal to 126 mg/dL meet the criteria for diagnosis of diabetes. In the absence of unequivocal hyperglycemia, results should be confirmed by repeat testing. In a patient with classic symptoms of hyperglycemia or hyperglycemic crisis, random plasma glucose results greater than or equal to 200 mg/dL meet the criteria for diagnosis of diabetes. Reference: Standards of Medical Care in Diabetes 2016, [place] Diabetes Association. Diabetes Care. 2016.39(Suppl 1). Performed By: #### 2 4323-8 ####[facility]ORATORYCLIA [id number] [place] [id number] [place] Potassium [Moles/Vol] 4.4 mmol/L Normal 3.7-5.1 [facility] Comment on above: Order Comment: Speci men Type: BLOOD SPECIMENOrdering Facility: [facility] Address: [address] [place] [address] Performed By: #### 2 4323-8 ####[facility]ATORYCLIA [id number] [place] [address] [place] Protein [Mass/Vol] 7.3 g/dL Normal 6.3-8.0 [facility] Comment on above: Order Comment: Speci men Type: BLOOD SPECIMENOrdering Facility: [facility] Address: [address] [place] [address] Performed By: #### 2 4323-8 ####[facility]ATORYCLIA [id number] [place] [address] [place] Sodium [Moles/Vol] 139 mmol/L Normal 136-144 [facility] Comment on above: Order Comment: Speci men Type: BLOOD SPECIMENOrdering Facility: [facility] Address: [address] [place] [address] Performed By: #### 2 4323-8 ####[facility]ATORYCLIA [id number] [place] [address] [place] Urea nitrogen [Mass/Vol] 13 mg/dL Normal 9-24 [facility] Comment on above: Order Comment: Speci men Type: BLOOD SPECIMENOrdering Facility: [facility] Address: [address] [place] [address] Performed By: #### 2 4323-8 ####[facility]ATORYCLIA [id number] [place] [address] [place] HbA1c (Bld)on 05-21-2024 Average glucose Estimated from glycated hemoglobin (Bld) [Mass/Vol] 108 mg/dL [facility] Comment on above: eAG: (Estimated aver age glucose) is a calculated value from HgbA1c and is passenger representative of the average blood glucose level in the last 2-3 month period. HbA1c (Bld) [Mass fraction] 5.4 % 4.3 - 5.6 % [facility] Comment on above: [place] Diabetes As sociation guidelines indicate that patients with HgbA1c in the range 5.7-6.4% are at increased risk for development of diabetes, and intervention by lifestyle modification may be beneficial. HgbA1c greater or equal to 6.5% is considered diagnostic of diabetes. [facility] Average glucose Estimated from glycated hemoglobin (Bld) [Mass/Vol] 108 mg/dL Normal [facility] Comment on above: Order Comment: Speci men Type: BLOOD SPECIMENOrdering Facility: [facility] Address: [address] [place] [address] Result Comment: eAG: (Estimated average glucose) is a calculated value from HgbA1c and is passenger representative of the average blood glucose level in the last 2-3 month period. Performed By: #### 5 5454-3 ####[facility] LABIA [id number] [place] [address] [place] HbA1c (Bld) [Mass fraction] 5.4 % Normal 4.3-5.6 [facility] Comment on above: Order Comment: Speci men Type: BLOOD SPECIMENOrdering Facility: [facility] Address: [address] [place] [address] Result Comment: [place] Diabetes Association guidelines indicate that patients with HgbA1c in the range 5.7-6.4% are at increased risk for development of diabetes, and intervention by lifestyle modification may be beneficial. HgbA1c greater or equal to 6.5% is considered diagnostic of diabetes. Performed By: #### 5 5454-3 ####[facility] [id number] [place] [id number] [place] PSA/PROSTATE SPECIFIC ANTIGE N SCREENINGon 05-21-2024 Interpretation and review of laboratory results Normal [facility] Prostate specific Ag [Mass/Vol] 2.09 ng/mL NINF - 2.60 ng/mL [facility] Comment on above: Total PSA test metho dology used is the Electrochemiluminescence Immunoassay by [employer]. Total PSA values by differing methodologies cannot be interchanged. [facility] Prostate specific Ag [Mass/Vol] 2.09 ng/mL Normal <2.60 [facility] Comment on above: Order Comment: Speci men Type: BLOOD SPECIMENOrdering Facility: [facility] Address: [address] [address] Result Comment: Miguel l PSA test methodology used is the Electrochemiluminescence Immunoassay by [employer]. Total PSA values by differing methodologies cannot be interchanged. Performed By: #### P SAS1 ####[facility] [id number] [place] [address] [place] VITAMIN D 25 HYDROXYon 05-21 25-hydroxyvitamin D3 [Mass/Vol] 50 ng/mL 31.0 - 80.0 ng/mL [facility] Comment on above: Classification of 25 [place] Vitamin D status: Deficiency/Insufficiency: < or = 30 ng/ml. Sufficiency/Optimal Levels: 31-80 ng/mL Toxicity: > 100 ng/mL. Test performed by chemiluminescent immunoassay. Gastroenterology Visit Repor ton 04-22-2024 Gastroenterology Visit Report [facility] [address] [place] [address] OFFICE VISIT Date of Service: 04/22/24 MR#: [id number] Acct: [id number] Name: INNA ORTIZ Rep #: [id number] : 1955 Provider: Diomedes Bey DO Age/Sex: 69/M [place] [facility] [place]: Signed Intake Vital Signs 10/16/23 12:51 01/28/24 10:06 Height 5 ft 9 in 5 ft 9 in Weight: 127 lb BMI 18.7 BP 142/84 H Blood Pressure Location Rt brachial Position Sitting Respiration 15 Pulse 73 Pulse Source Monitor Temp 98.6 F Temp Source Temporal Pulse Oximetry (%) 99 Oxygen Delivery Method room air Intake Visit Reasons: 3 M FU Allergies cefdinir Allergy (Verified 01/28/24 10:12) Rash nitrofurantoin (From Macrobid) Allergy (Verified 01/28/24 10:12) Rash BANDAR Inhibitors Adverse Reaction (Severe, Verified 01/28/24 10:12) hypotension, cough Medications ???Medication ???Instructions ???Recorded ???Confirmed ???Type aspirin 81 mg chewable tablet 81 mg PO DAILY@0800 05/30/1604/22 History simvastatin 20 mg tablet 20 mg PO QHS 05/30/16 04/22/24 His tory nitroglycerin 400 mcg/spray 0.4 mg translingual Q3-5M PRN 09/2704/22/24 Rx translingual Cardiac/Chest Pain #4.9 grams oxybutynin chloride 10 mg 10 mg PO DAILY BLADDER 04/28/21 History tablet,extended release 24 hr fluticasone propionate 50 2 spray intranasal DAILY 09/29/21 04/22/24 History mcg/actuation nasal spray,suspension (Flonase Allergy Relief) glucosamine-chondroitin 250 mg-200 1 tab PO QPC 09/29/21 04/22/24 H istory mg tablet (Osteo Bi-Flex) docusate sodium 100 mg capsule 200 mg PO DAILY 09/25/23 04/22/24 History docusate sodium 50 mg capsule 200 mg PO DAILY 09/25/23 04/22/24 History midazolam 5 mg/spray (0.1 mL) See Rx Instructions .Route 4 04/22/24 Rx nasal spray (Nayzilam) .COMPLEX #2 ea Held on 10/11/23. Instructions: INSURANCE REFUSING TO PAY prazosin 1 mg capsule 1 mg PO QPM #30 caps 02/04/2403/30 Rx famotidine 20 mg tablet 20 mg PO DAILY #90 tabs 03/03/24 0 04/22/24 Rx lacosamide 100 mg tablet 100 mg PO BID 04/22/24 04/22/24 Hi story Have you fallen in the past year?: No PENDING SALE TO [facility] Medical History Concave nail Bruising Diabetes Back pain Injury of head and neck Seizures Gastric reflux Chronic cough Cardiology follow-up encounter History of echocardiogram History of heart attack Chest pain Urinary incontinence Gait abnormality Acid indigestion Overactive bladder Atherosclerosis of coronary artery 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 TBI (traumatic brain injury) History of stroke Old myocardial infarction CHF (congestive heart failure) Cardiomyopathy in disease classified elsewhere Type 2 diabetes mellitus Pure hypercholesterolemia Essential hypertension Surgical History History of esophagogastroduodenoscop y (EGD) History of colonoscopy Hx of inguinal hernia repair Family History Mother CAD (coronary artery disease) Diabetes Hypertension Father Myocardial infarction, Onset Age: 68 Social History Smoking Status: Never smoker alcohol intake: never substance use type: does not use caffeine: Yes Type: carbonated beverages HPI HPI Details: INNA ORTIZ, is a 69 M who presents to the office today for follow up. [facility] established 11.24.21 for weight loss and epigastric pain. Caregiver is concerned about Metformin use.??? Biochemical???ESR, haptoglobin, amylase, PSA, LDH, CRP, BANDAR, A1c, CPK, lipase, ceruloplasmin, ferritin, ammonia, copper, aldolase, CA 19-9, CEA, coag, GAME, JESUSITA comp, DOMINICK, ANCA, celiac, ASM, AMA without pertinent abnormality.??? Stool elastase, c.difficile (formed), EP, O/P, giardia WNL.?Calprotectin H121, lactoferrin +??? OV 02.21.22 for unintentional weight loss of 20lbs in 9 months. Reports good appetite eating 3 full meals/day, snacks and protein supplement. Occasionally points to epigastrium an says it hurts.?CT abd/pel 03.06.22???enlarged prostate with evidence of central density calcification.?EGD and colonoscopy .03.20???EGD irregular Zline 37cm.?Colon oscopy 5mm rectal TA polyp.??? OV 04.12.22 recommend daily MiraLAX to address constipation?Capsu le endoscopy 06.20.22???enlarged gastric folds; poor visibility of small bowel; mild erythema of small bowel.? (more content not included)... [facility]IWS ) ----- INNA ORTIZ ([id number]) 1955 M Date Time Provider Department 04/07/24 9:30 AM CLAUDETTE BRANCH PODIWS During your visit today, we recorded the following information about you: Cait Bah LPN 04/07/2024 9:38 AM Signed AMB ROOMING INTAKE FLOWSHEET DATA Risk Screening Do you have concerns about personal safety or safety in the home?: No Patient presents with: Left Foot - Established Patient, Follow Up, Diabetic Foot Check Right Foot - Established Patient, Follow Up, Diabetic Foot Check SHRUTHI Hackett Matthew 04/07/2024 9:38 AM Signed Last saw pcp: 03/03/24 Subjective: Patient presents to clinic c/o painful toenails. They state that the nails are especially painful with shoe gear and pressure. Patient states that nails 1-5 b/l are painful. Patient admits to being diabetic. Patient uses hammertoe pad for right 2nd toe and this does help. No other pedal complaints at this time. Patient states no change in medications or medical history since last visit. Objective: Patient presents to clinic ambulating in [facility] Vasc: DP and PT pulses are palpable bilateral. CFT is less than 5 seconds bilateral. Skin temperature is warm to cool proximal to distal bilateral. There is no edema or varicosities noted. Neuro: Protective sensation is decreased to the foot and toes when tested with the 5.07 SWM bilateral. The hallux is downgoing bilateral. Derm: Nails 1-5 b/l are painful, discolored-yellow, thick, crumbly, dystrophic and with subungal debris. Skin is of normal turgor, texture and hair growth is decreased bilateral. There are no hyperkeratosis, ulcerations, scars, verruca or other lesions noted. Ortho: Muscle strength is 5/5 for all pedal groups tested. Ankle joint DF is decreased with the knee extended with no pain or crepitus noted. 1st MPJ ROM is decreased bilateral. Hammertoe is present to right 2nd toe Assessment: (B35.1) Onychomycosis (primary encounter diagnosis) (M79.675) Pain in toe of left foot (M79.674) Pain in toe of right foot (E11.42) Type 2 diabetes mellitus with polyneuropathy (HCC) (M20.41) Hammer toe of right foot Plan: Patient was seen and evaluated. Nails 1-5 bilateral were debrided in length and thickness. Patient was instructed on the continued importance of diabetic foot care along with proper diet and keeping their blood sugar under control to prevent complications. Stressed the importance of avoiding barefoot walking, wearing good shoes and inspection of feet daily. Discussed hammertoe of right 2nd toe. Continue with gel toe cap. Other options discussed include surgery but vania seems to be doing well with toe cap Patient is to RTC in 3-4 months. DENISA Hubbard Matthew 04/07/2024 9:06 AM Signed Diabetes Foot Care Instructions When you have diabetes, proper foot care is very important. Poor foot care may lead to amputation of a foot or leg. As a person with diabetes, you are more vulnerable to foot problems, because diabetes can damage your nerves and reduce blood flow to your feet. Here are some diabetes foot care tips to follow: Wash and Dry Your Feet Daily Use mild soaps Use warm water Pat your skin dry; do not rub. Thoroughly dry your feet. After washing, use lotion on your feet to prevent cracking. Do not put lotion between your toes. Examine Your Feet Each Day Check the tops and bottoms of your feet. Have someone else look at your feet if you cannot see them. Check for dry, cracked skin. Look for blisters, cuts, scratches, or other sores. Check for redness, increased warmth, or tenderness when touching any area of your feet. Check for ingrown toenails, corns, and calluses. If you get a blister or sore from your shoes, do not pop it. Apply a bandage and wear a different pair of shoes. Take Care of Your Toenails Cut toenails after bathing, when they are soft. Cut toenails straight across and smooth with a nail file. Avoid cutting into the corners of toes. Do not cut cuticles. If you have neuropathy (or decreased sensation in your feet) a lens dotter should always cut your toenails. Be Careful When Exercising Walk and exercise in comfortable shoes. Do not exercise when you have open sores on your feet. Protect Your Feet With Shoes and Socks Never go barefoot. Always protect your feet by wearing shoes or hard-soled slippers or footwear. Avoid shoes with high heels and pointed toes. Avoid shoes that expose your toes or heels (such as open-toed shoes or sandals). These types of shoes increase your risk for injury and potential infections. Try on new footwear with the type of socks you usually wear. Do not wear new shoes for more than an hour at a time. Change your socks daily. Look and feel inside your shoes before putting them on to make sure there are no foreign object (more content not included)... Normal [facility] D/C Summary- SPon 03-12-2024 D/C Summary- SP [facility] Speech Pathology [facility] [address] [place] [address]. [address] [place] [address] / REHABILITATION SERVICES DISCHARGE SUMMARY MR#: [id number] Acct: [id number] Name: INNA ORTIZ Rep #: [id number] : 1955 69 From: [employer] [facility] Referring DrJose: Diomedes Bey, DO Status: REG R CR Insurance: [employer]ICA[employer] Discharge Summary Discharged: Discharge: INNA ORTIZ is a 69 year old male who presented to 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 He participated in the bedside swallow evaluation which recommended easy to chew textures, thin liquids,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 wear. Do not wear new shoes for more than an hour at a time. Change your socks daily. Look and feel inside your shoes before putting them on to make sure there are no foreign objects or rough areas. Avoid tight socks. Wear natural-fiber socks (cotton, wool, or a cotton-wool blend). Wear special shoes if your health care provider recommends them. Wear shoes/boots that will protect your feet from various weather conditions (cold, moisture, etc.). Make sure your shoes fit properly. If you have neuropathy (nerve damage), you may not notice that your shoes are too tight. Perform the footwear test described below. Footwear Test Use this simple test to see if your shoes fit correctly: Stand on a piece of paper. (Make sure you are standing and not sitting, because your foot changes shape when you stand.) Trace the outline of your foot. Trace the outline of your shoe. Compare the tracings: Is the shoe too narrow? Is your foot crammed into the shoe? The shoe should be at least 1/2 inch longer than your longest toe and as wide as your foot. Proper Shoe Choices The following types of shoes are best for people with diabetes Closed toes and heels Leather uppers without a seam inside At least 1/2 inch extra space at the end of your longest toe Inside of shoe should be soft with no rough areas Outer sole should be made of stiff material Shoes should be at least as wide as your feet Tips for Foot Care in Diabetes Don't wait to treat a minor foot problem if you have diabetes. Follow your health care provider's guidelines and first aid guidelines. Report foot injuries and infections to your health care provider immediately. Check water temperature with your elbow, not your foot. Do not use a heating pad on your feet. Do not cross your legs. Do not self-treat your corns, calluses, or other foot problems. Go to your health care provider or lens dotter to treat these conditions. Claudette Branch 01/05/2024 5:48 AM Signed Last saw pcp: 12/07/23 Subjective: Patient presents to clinic c/o painful toenails. They state that the nails are especially painful with shoe gear and pressure. Patient states that nails 1-5 b/l are painful. Patient admits to being diabetic. No other pedal complaints at this time. Patient states no change in medications or medical history since last visit. Objective: Patient presents to clinic ambulating in [facility] Vasc: DP and PT pulses are palpable bilater (more content not included)... Normal [facility] Modified Barium Swallow Stud n 12-07-2023 Modified Barium Swallow Study [facility] Speech Pathology [address] [place] [address] Modified Barium Swallow Study MR#: [id number] Acct: [id number] Name: INNA ORTIZ Rep #: [id number] : 1955 68 From: Melanie Figueroa M.A., [facility]-[employer]EL[employer] Modified Barium Swallow Patient Information Study Date: 12/07/23 Study Time: 13:00 Direct Billable Minutes: 104 Total Minutes procedure reportin Diagnosis: Esophageal dysphagia R13.19 Referring Physician: Diomedes Bey Reason for Referral: Objectively assess swallow function, assess risk for aspiration, and determine recommendations for least restrictive diet textures and compensatory strategies to improve safety of swallow. Medical History: Patient had recent BSE at [facility] on 11/06/2023 referred by forestry fire aide, Dr. Bey, who has been managing patient for esophageal dysphagia, abnormal gastric folds (hx of gastroparesis per sister), and esophageal stenosis s/p dilation during EGD 10/16/2023. BSE recommended Easy to Chew textures / Thin liquids w/ no straws, small bites/sips, slow rate (see BSE for full aspiration precautions) and MBSS for further assessment of swallow function and aspiration risk. Angie, the patient???s sister and caregiver, attended this MBSS with him. She reported he mostly has trouble swallowing when he eats or drinks with a rapid rate. She is fearful of him choking and tries to prepare tender foods for him, avoiding regular textured meats, such as pork chops. They also do not use straws because he slurps up air when he is done completing his drinks. Of note, Jasmyn has much difficulty following commands and would likely not be a candidate for oropharyngeal strengthening. During BSE, he could only follow commands w/ visual models to open his mouth. 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 Current Diet Ordered: Easy to Chew textures / Thin liquids Dentition: Natural Teeth and Missing Teeth Mental Status: Impaired (Cognitive impairment. SEE PMH above.) Respiratory Status: Oxygenating on Room Air Penetration-Aspiration Scale Penetration-Aspiration Scale: OBJECTIVE ASSESSMENT OF SWALLOW FUNCTION (QUANTITATIVE ??? PER TRIAL): PENETRATION / ASPIRATION SCALE (JULES): 1 = does not enter airway 2 = enters airway/above vocal folds/ejected 3 = enters airway/above vocal folds/not ejected 4 = enters airway/contacts vocal folds/ejected 5 = enters airway/contacts vocal folds/not ejected 6 = enters airway/below vocal folds/ejected 7 = enters airway/below vocal folds/not ejected despite effort 8 = enters airway/below vocal folds/no effort VIDEOFLOROSCOPIC SCALE SCORE (JULES): Grade I = aspiration of material that has penetrated into the laryngeal vestibule, intact cough reflex Grade II = aspiration < 10 % of the bolus, intact cough reflex Grade III = aspiration of < 10 % of the bolus, reduced cough reflex or aspiration of > 10 % of the bolus, intact cough reflex Grade IV = aspiration of > 10 % of the bolus, reduced cough reflex Penetration-Aspiration Scale Score Thin Liquid via teaspoon: Result: 1= does not enter airway Thin Liquid via teaspoon Trial 2: Result: 1= does not enter airway Thin Liquid via large single sip: cup: Result: 1= does not enter airway [place] Thick Liquid via large single sip: cup: Result: 1= does not enter airway Pudding via teaspoon: Result: 1= does not enter airway Comment: Esophageal screen - Complete clearance. 1/2 Cookie: Result: 1= does not enter airway Comment: Esophageal screen - Retention of small piece of un-chewed cookie in the upper esophagus. Thin Liquid via sequential sips: cup: Result: 3= enters airways/above vocal folds/not ejected Comment: Esophageal screen - Trace retention in the lower esophagus. Oral Phase Labial Seal: Interlabial escape, no progression to anterior lip Tongue Control During Bolus Hold: Posterior escape of greater than half of bolus Bolus Preparation/Mastication: Disorganized chewing/mashing with solid pieces of bolus unchewed (Pieces of cookie appeared un-chewed) Bolus Transport/Lingual Motion: Repetitive/disorganized tongue motion Oral Residue: Residue collection on oral structures Pharyngeal Phase Initiation of Pharyngeal Swallow: Bolus head in pyriforms Soft Palate Elevation: No bolus between soft palate and pharyngeal wall Anterior Hyoid Excursion: Partial anterior movement Epiglottic Movement: Complete inversion Laryngeal Vestibule Closure at Height of Swallow: Incomplet (more content not included)... Normal [facility] Gastric Emptying Studyon Gastric Emptying Study [facility] Imaging Services [address] [place] [address] Gastric Emptying Study MR#: [id number] Acct: [id number] Name: INNA ORTIZ Rep #: [id number] : 1955 68 From: Leonel Barrett PCP: Dr. Eliza Zamora MD Status: REG CLI Study: Gastric Emptying Study Date of Exam: 11/14/23 Exam# [id number] Ordering Dr: Diomedes Bey DO [id number] CLINICAL: 68-year-old male with history of abdominal pain. SEMI-SOLID PHASE 99m Tc SULFUR COLLOID GASTRIC EMPTYING STUDY COMPARISON: None available FINDINGS: The patient was administered 1.0 mCi of 99m Tc sulfur colloid mixed with oatmeal and consumed per os. Image acquisitions in the anterior-posterior projections were obtained for 60 minutes. There is prompt visualization of the stomach. There is no gastroesophageal reflux identified. First order kinetics are maintained throughout the duration of the acquisitions. The T ? linear fit was extrapolated to be 176.13 minutes, (Normal: 12-56 minutes). NM/Gastric Emptying Study IMPRESSION: 1. ABNORMAL 99m Tc sulfur colloid semi-solid phase (oatmeal) gastric emptying imaging examination. A. There is delayed semi-solid phase gastric emptying compared to normal controls with maintained first order kinetics throughout all components of the examination. (Deangelo, J Nucl Med Tech 38: 186, 2010). Electronically Signed: Leonel Feldman DO at 21:54 EDT , CC: Dr. Eliza Zamora MD; Diomedes Bey DO Hand Stoner: Signed [facility] CNOVon 11-13-2023 [facility] Office Visit (INTMWS ) ----- INNA ORTIZ ([id number]) 1955 M Date Time Provider Department 11/13/23 2:00 PM ELIZA ZAMORA INTMWS During your visit today, we recorded the following information about you: Temperature Pulse Respiration Blood pressure 98.6 degrees 77/minute 18/minute 110/62 Weight 55.6 kg Eliza Zamora MD 12/23/2023 5:04 PM Signed This note was created using Reachpod - [employer] Bilis[employer]. Subjective Inna Ortiz is a 68 year old male. No chief complaint on file. SUBJECTIVE: Inna Ortiz is a 68 year old year old gentleman here today for 6 month follow up appointment for review of medical conditions. The patient is a 68-year-old male with a history of seizures, gastroparesis, and idiopathic constipation, presenting for a routine 6-month follow-up visit. He is accompanied by his mother and sister, who are providing history on his behalf. The patient has not required the use of his newly prescribed nasal spray, Nayzilam, for seizures lasting longer than 5 minutes. He is also taking prazosin 1 mg, prescribed by Dr. Bey, a forestry fire aide, to address prostate issues that may be contributing to his bowel problems. He has a history of gastroparesis, diagnosed after an endoscopy procedure in 2023,which is believed to be affecting his ability to gain weight and causing idiopathic constipation. He has a tendency to eat quickly without chewing properly, leading to choking episodes. He is scheduled for an oatmeal test tomorrow to assess the function of his esophageal and stomach muscles, and a barium swallow test is planned to evaluate his lower esophagus. The patient has been gaining weight, currently at 122 lbs, up from 117 lbs. His blood sugars have been well-controlled, with occasional readings in the 120s, and his blood pressure readings have been consistently between 110-115 mmHg systolic and 60s mmHg diastolic. His heart rate has been stable, ranging from 63-73 bpm. Recent lab results show normal blood sugar, liver and kidney function tests, blood counts, cholesterol levels, and vitamin D levels. His A1c is normal, and his potassium levels are on the low end. He is currently taking simvastatin to manage his cholesterol. PAST MEDICAL HISTORY Diagnosis Date CONVULSIONS, OTHER [...] hypertension 10/10/2004 Current Outpatient Medications Medication Sig prazosin (MINIPRESS) 1 mg cap Take 1 mg by mouth daily at bedtime. blood sugar diagnostic (BLOOD GLUCOSE TEST) test strip Test blood sugar(s) 2 times daily. Dx: Type 2 DM - Uncontrolled E11.65 Insulin: No oxybutynin ER (DITROPAN XL) 10 mg 24 hr tablet Take 1 tablet by mouth once daily. lacosamide (VIMPAT) 50 mg tab Take 1 tablet by mouth two times a day for 90 days. simvastatin (ZOCOR) 20 mg tablet Take 1 tablet by mouth daily at bedtime. famotidine (PEPCID) 20 mg tablet Take 1 tablet by mouth once daily. (Per GI) docusate sodium (COLACE) 100 mg capsule Take 200 mg by mouth daily with breakfast. cyanocobalamin (VITAMIN B-12) 1,000 mcg tab Take 1 tablet by mouth once daily. nitroglycerin (NITROLINGUAL) 400 mcg/spray spray Dissolve 1 [place] under the tongue every 5 minutes as [...] Take 1 tablet by mouth once daily. NAYZILAM 5 mg/spray (0.1 mL) nasal spray Use 1 [place] in the nose as needed for seizures lasting longer than 5 minutes. No current facility-administered medications for this visit. Review of Systems Objective BP 110/62 Pulse 77 Temp 37 ?C (98.6 ?F) Resp 18 Wt 55.6 kg (122 lb 9.2 oz) SpO2 99% BMI 18.10 kg/m? Physical Exam Vitals reviewed. Constitutional: Appearance: Normal appearance. Eyes: Conjunctiva/sclera: Conjunctivae normal. Cardiovascular: Rate and Rhythm: Normal rate and regular rhythm. Heart sounds: Normal heart sounds. Pulmonary: Effort: Pulmonary effort is normal. Breath sounds: Normal breath sounds. Skin: General: Skin is warm and dry. Neurological: General (more content not included)... Normal [facility] 25(OH)D3 [facility] 2023 25-hydroxyvitamin D3 [Mass/Vol] 56.7 ng/mL Normal 31.0-80.0 [facility] Comment on above: Order Comment: Speci men Type: BLOOD SPECIMENOrdering Facility: [facility] Address: [address] [place] [address] Result Comment: Clas sification of 25 [place] Vitamin D status: Deficiency/Insufficiency: < or = 30 ng/ml. Sufficiency/Optimal Levels: 31-80 ng/mL Toxicity: > 100 ng/mL. Test performed by chemiluminescent immunoassay. Performed By: #### 1 989-3 ####[facility] [id number] [place] [address] [place] CBC panel Auto (Bld)on 11-09 Erythrocyte distribution width (RBC) [Ratio] 14.2 % Normal 11.5-15.0 [facility] Comment on above: Order Comment: Speci men Type: BLOOD SPECIMENOrdering Facility: [facility] Address: [address] [place] [address] Performed By: #### 5 8410-2 ####[facility] [id number] [place] [address] [place] Hematocrit (Bld) [Volume fraction] 46.9 % Normal 39.0-51.0 [facility] Comment on above: Order Comment: Speci men Type: BLOOD SPECIMENOrdering Facility: [facility] Address: [address] [place] [address] Performed By: #### 5 8410-2 ####[facility] [id number] [address] [place] Hemoglobin (Bld) [Mass/Vol] 14.7 g/dL Normal 13.0-17.0 [facility] Comment on above: Order Comment: Speci men Type: BLOOD SPECIMENOrdering Facility: [facility] Address: [address] [place] [address] Performed By: #### 5 8410-2 ####[facility] [id number] [place] [address] [place] MCH (RBC) [Entitic mass] 27.4 pg Normal 26.0-34.0 [facility] Comment on above: Order Comment: Speci men Type: BLOOD SPECIMENOrdering Facility: [facility] Address: [address] [place] [address] Performed By: #### 5 8410-2 ####[facility] [id number] [place] [address] [place] MCHC (RBC) [Mass/Vol] 31.3 g/dL Normal 30.5-36.0 [facility] Comment on above: Order Comment: Speci men Type: BLOOD SPECIMENOrdering Facility: [facility] Address: [address] [place] [address] Performed By: #### 5 8410-2 ####[facility] [id number] [place] [address] [place] MCV (RBC) [Entitic vol] 87.3 fL Normal 80.0-100.0 [facility] Comment on above: Order Comment: Speci men Type: BLOOD SPECIMENOrdering Facility: [facility] Address: [address] [place] [address] Performed By: #### 5 8410-2 ####[facility] [id number] [place] [address] [place] Nucleated RBC (Bld) [#/Vol] 10*3/uL Normal <0.01 [facility] Comment on above: Order Comment: Speci men Type: BLOOD SPECIMENOrdering Facility: [facility] Address: [address] [place] [address] Performed By: #### 5 8410-2 ####[facility] [id number] [place] [address] [place] Platelet mean volume (Bld) [Entitic vol] 10.6 fL Normal 9.0-12.7 [facility] Comment on above: Order Comment: Speci men Type: BLOOD SPECIMENOrdering Facility: [facility] Address: [address] [place] [address] Performed By: #### 5 8410-2 ####[facility] [id number] [place] [address] [place] Platelets (Bld) [#/Vol] 211 10*3/uL Normal 150-400 [facility] Comment on above: Order Comment: Speci men Type: BLOOD SPECIMENOrdering Facility: [facility] Address: [address] [place] [address] Performed By: #### 5 8410-2 ####[facility] [id number] [place] [address] [place] RBC (Bld) [#/Vol] 5.37 10*6/uL Normal 4.20-6.00 [facility] Comment on above: Order Comment: Speci men Type: BLOOD SPECIMENOrdering Facility: [facility] Address: [address] [place] [address] Performed By: #### 5 8410-2 ####[facility] [id number] [place] [address] [place] WBC (Bld) [#/Vol] 7.99 10*3/uL Normal 3.70-11.00 [facility] Comment on above: Order Comment: Speci men Type: BLOOD SPECIMENOrdering Facility: [facility] Address: [address] [place] [address] Performed By: #### 5 8410-2 ####[facility] [id number] [place] [address] [place] Comprehensive metabolic 2000 panelon 11-10-2023 Albumin [Mass/Vol] 4.6 g/dL Normal 3.9-4.9 [facility] Comment on above: Order Comment: Speci men Type: BLOOD SPECIMENOrdering Facility: [facility] Address: [address] [place] [address] Performed By: #### 2 4323-8, 57034-1 ####[facility] [id number] [place] [address] [place] ALP [Catalytic activity/Vol] 73 U/L Normal 38-113 [facility] Comment on above: Order Comment: Speci men Type: BLOOD SPECIMENOrdering Facility: [facility] Address: [address] [place] [address] Performed By: #### 2 4323-8, 42861-9 ####[facility] [id number] [address] [address] [place] ALT [Catalytic activity/Vol] 10 U/L Normal 10-54 [facility] Comment on above: Order Comment: Speci men Type: BLOOD SPECIMENOrdering Facility: [facility] Address: [address] [place] [address] Performed By: #### 2 4323-8, 59900-8 ####[facility] [id number] [place] [id number] [place] Anion gap [Moles/Vol] 13 mmol/L Normal 8-15 [facility] Comment on above: Order Comment: Speci men Type: BLOOD SPECIMENOrdering Facility: [facility] Address: [address] [place] [address] Performed By: #### 2 4323-8, 99520-3 ####[facility] [id number] [place] [address] [place] AST [Catalytic activity/Vol] 20 U/L Normal 14-40 [facility] Comment on above: Order Comment: Speci men Type: BLOOD SPECIMENOrdering Facility: [facility] Address: [address] [place] [address] Performed By: #### 2 4323-8, 09057-5 ####[facility] [id number] [place] [address] [place] Bilirubin [Mass/Vol] 0.6 mg/dL Normal 0.2-1.3 [facility] Comment on above: Order Comment: Speci men Type: BLOOD SPECIMENOrdering Facility: [facility] Address: [address] [place] [address] Performed By: #### 2 4323-8, 23546-8 ####[facility] [id number] [place] [address] [place] Calcium [Mass/Vol] 9.8 mg/dL Normal 8.5-10.2 [facility] Comment on above: Order Comment: Speci men Type: BLOOD SPECIMENOrdering Facility: [facility] Address: [address] [place] [address] Performed By: #### 2 4323-8, 59724-9 ####[facility] [id number] [place] [address] [place] Chloride [Moles/Vol] 103 mmol/L Normal 98-107 [facility] Comment on above: Order Comment: Speci men Type: BLOOD SPECIMENOrdering Facility: [facility] Address: [address] [place] [address] Performed By: #### 2 4323-8, 47740-5 ####[facility] [id number] [place] [address] [place] CO2 [Moles/Vol] 26 mmol/L Normal 22-30 [facility] Comment on above: Order Comment: Speci men Type: BLOOD SPECIMENOrdering Facility: [facility] Address: [address] [place] [address] Performed By: #### 2 4323-8, 59827-0 ####[facility] [id number] [place] [address] [place] Creatinine [Mass/Vol] 1.03 mg/dL Normal 0.73-1.22 [facility] Comment on above: Order Comment: Speci men Type: BLOOD SPECIMENOrdering Facility: [facility] Address: [address] [place] [address] Performed By: #### 2 4323-8, 37484-8 ####[facility] [id number] [place] [address] [place] Creatinine and Glomerular filtration rate.predicted panel (S/P/Bld) 80 mL/min/1.73m??? Normal >=60 [facility] Comment on above: Order Comment: Speci men Type: BLOOD SPECIMENOrdering Facility: [facility] Address: [address] [place] [address] Result Comment: [place] mated Glomerular Filtration Rate (eGFR) is calculated using the 2020 CKD-EPI creatinine equation. This equation utilizes serum creatinine, sex, and age as parameters. The creatinine assay has traceable calibration to isotope dilution-mass spectrometry. Refer to KDIGO guidelines for clinical interpretation. In patients with unstable renal function, e.g. those with acute kidney injury, the eGFR may not accurately reflect actual GFR. Performed By: #### 2 4323-8, 20085-0 ####[facility] [id number] [place] [address] [place] Glucose [Mass/Vol] 94 mg/dL Normal 74-99 [facility] Comment on above: Order Comment: Jt pierre Type: BLOOD SPECIMENOrdering Facility: [facility] Address: [address] [place] [address] Result Comment: The [place] Diabetes Association (ADA) provides guidance for cutoff values for fasting glucose and random glucose. The ADA defines fasting as no caloric intake for at least 8 hours. Fasting plasma glucose results between 100 to 125 mg/dL indicate increased risk for diabetes (prediabetes). Fasting plasma glucose results greater than or equal to 126 mg/dL meet the criteria for diagnosis of diabetes. In the absence of unequivocal hyperglycemia, results should be confirmed by repeat testing. In a patient with classic symptoms of hyperglycemia or hyperglycemic crisis, random plasma glucose results greater than or equal to 200 mg/dL meet the criteria for diagnosis of diabetes. Reference: Standards of Medical Care in Diabetes 2016, [place] Diabetes Association. Diabetes Care. 2016.39(Suppl 1). Performed By: #### 2 4323-8, 46708-7 ####[facility] [id number] [place] [id number] [place] Potassium [Moles/Vol] 3.9 mmol/L Normal 3.7-5.1 [facility] Comment on above: Order Comment: Jt pierre Type: BLOOD SPECIMENOrdering Facility: [facility] Address: [address] [place] [address] Performed By: #### 2 4323-8, 94076-8 ####[facility] [id number] [address] [address] [place] Protein [Mass/Vol] 7.3 g/dL Normal 6.3-8.0 [facility] Comment on above: Order Comment: Speci men Type: BLOOD SPECIMENOrdering Facility: [facility] Address: [address] [place] [address] Performed By: #### 2 4323-8, 64850-9 ####[facility] [id number] [place] [address] [place] Sodium [Moles/Vol] 142 mmol/L Normal 136-144 [facility] Comment on above: Order Comment: Speci men Type: BLOOD SPECIMENOrdering Facility: [facility] Address: [address] [place] [address] Performed By: #### 2 4323-8, 27587-5 ####[facility] [id number] [place] [address] [place] Urea nitrogen [Mass/Vol] 17 mg/dL Normal 9-24 [facility] Comment on above: Order Comment: Speci men Type: BLOOD SPECIMENOrdering Facility: [facility] Address: [address] [place] [address] Performed By: #### 2 4323-8, 20196-2 ####[facility] [id number] [place] [id number] [place] HbA1c (Bld)on 11-10-2023 Average glucose Estimated from glycated hemoglobin (Bld) [Mass/Vol] 105 mg/dL Normal [facility] Comment on above: Order Comment: Speci men Type: BLOOD SPECIMENOrdering Facility: [facility] Address: [address] [place] [address] Result Comment: eAG: (Estimated average glucose) is a calculated value from HgbA1c and is passenger representative of the average blood glucose level in the last 2-3 month period. Performed By: #### 5 5454-3 ####[facility] [id number] [place] [address] [place] HbA1c (Bld) [Mass fraction] 5.3 % Normal 4.3-5.6 [facility] Comment on above: Order Comment: Jt pierre Type: BLOOD SPECIMENOrdering Facility: [facility] Address: [address] [place] [address] Result Comment: Amer [place] Diabetes Association guidelines indicate that patients with HgbA1c in the range 5.7-6.4% are at increased risk for development of diabetes, and intervention by lifestyle modification may be beneficial. HgbA1c greater or equal to 6.5% is considered diagnostic of diabetes. Performed By: #### 5 5454-3 ####[facility] [id number] [place] [address] [place] Lipid 1996 panelon 4 Cholesterol [Mass/Vol] 153 mg/dL Normal <200 [facility] Comment on above: Order Comment: tJ pierre Type: BLOOD SPECIMENOrdering Facility: [facility] Address: [address] [place] [address] Result Comment: <200 mg/dL, Desirable 200-239 mg/dL, Borderline high >239 mg/dL, High Performed By: #### 2 4323-8, 67171-4 ####[facility] [id number] [address] [place] Cholesterol in HDL [Mass/Vol] 55 mg/dL Normal >39 [facility] Comment on above: Order Comment: Jt pierre Type: BLOOD SPECIMENOrdering Facility: [facility] Address: [address] [place] [address] Result Comment: 40-5 9 mg/dL, Acceptable >59 mg/dL, High: Negative risk factor for coronary heart disease <40 mg/dL, Low: Positive risk factor for coronary heart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 If active epilepsy, driving will need to be cleared by an Epileptologist. Driving laws vary state to state, refer to state law for restrictions. ALLERGIES Allergen Reactions - Macrobid [Nitrofura* Rash - Cefdinir Rash DISCHARGE MEDICATION: Medication List START taking these medications lacosamide 50 mg Tab Commonly known as: VIMPAT Take 1 tablet by mouth two times a day for 180 days. CONTINUE taking these medications aspirin, enteric coated 81 mg EC tablet Commonly known as: ECOTRIN LOW STRENGTH Take 1 tablet by mouth once daily. BLOOD GLUCOSE TEST test strip Generic drug: blood sugar diagnostic Test blood sugar(s) 2 t (more content not included)... Normal [facility] CASE MGT INIT [facility] 2022 CASE MGT INIT [facility] HNO ID: [id number] Author: Susy Malagon LSW Service: ? Author Type: Intelligence Agent Type: Care Mgt Initial Assessment Filed: 12/05/2022 2:38 PM Note Text: CARE MANAGEMENT: ASSESSMENT AND DISCHARGE PLAN SERVICE DATE: December 05, 2022 SERVICE TIME: 2:28 PM PCP: Eliza Zamora MD Primary Contact: Extended Emergency Contact Information Primary Emergency Contact: Angie Ortiz Address: [address] [place] [address] [facility] Mobile Relation: Sister Secondary Emergency Contact: Chiquita Ortiz Mobile Relation: Mother Admission Status: Inpatient [facility] Discharge Planning requested by: Per Department Practice Potential Transition Plans Home Advance Directives Current Advance Directive: Other Document: See Comment In Chart: Yes Up To Date and Valid: Yes Current Living Arrangements and Support Lives with: Family members Type of Residence: Support: How do you manage to accomplish the following: Needs Assistance: Ambulation;Bathe/Shower;D ress;Meals/Meal Prep;Going to the bathroom;Medication Management Dependent: Transportation to appointments/community Current Services/Equipment Discharge Planning Patient Goal(s): Be able to go home [place] of Choice Explained: [place] of [place] Given: No Reason Not Given: No placements necessary Are you interested in bedside delivery of your medications? No Discharge Planning Participant(s): Guardian Patient/Family Comments: Caregiver Assessment: Transport at Discharge: Transportation Arrangements: Car Needs Prior to Discharge: Needs Prior to Discharge: OT/PT Evaluation (medical clearance) Post-Acute Discharge Plan: Sw spoke to legal guardian, plan for patient to return home with her. Legal guardian will transport. Per legal guardian has everything she needs for the patient. Plan to return home with legal guardain sister. SIGNATURE: ALEXANDREA Mullen PATIENT NAME: Inna Ortiz DATE: December 05, 2022 TIME: 2:28 PM CONTACT #: [phone] [facility] NUTRITIONon 12-05-2022 NUTRITION HNO ID: [id number] Author: Rupinder Bartlett RD Service: Nutrition Therapy Author Type: Registered Dietitian Type: Nutrition Filed: 12/05/2022 2:52 PM Note Text: NUTRITION THERAPY INITIAL ASSESSMENT SERVICE DATE: 12/05/2022 SERVICE TIME: 1336 Nutrition Assessment: Recommended Malnutrition Diagnosis: No Malnutrition Identified Nutrition Diagnosis: Problem: Increased nutrient needs Related to: Chronic illness As evidenced by: Low BMI Estimated kilocalorie needs: 3665-4353 Calorie Calculation Method: 30-35 kcals/kg Estimated protein needs (grams): 64-80 Grams protein determined by: 1.2 - 1.5 g/kg Care Plan: Continue current diet Supplements: Boost Glucose Control Monitor and Evaluation: Meet greater than 75% of estimated needs, Monitor bowel function, Monitor fluid/electrolyte balance, Monitor labs, I/Os, vital signs, weight Discharge Recommendations: Diet;Oral Supplements Diet: regular Oral Supplements: high thai/protein supplement/snack of choice 1-2x/day between meals. HPI: 67 year old male with PMHx of HTN, DM, seizure, TBI and developmental delay currently being monitored/worked up for seizures vs syncope. Intake History: Nutrition Intake Prior to Admission: Greater than 75% estimated energy needs greater than or equal to 1 month Current Nutrition Intake: Unable to determine Pt able to make noises, but does not answer appropriately. Sister/caregiver present to assist with nutritional background. 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 No chewing/swallowing issues, serves him soft diet but orders soft food here. No N/V/C/D. 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 Caregiver started pt in PT but didn't gain back muscle. Diet recall completed. Encouraged caregiver to await giving pt water until after meal to maximize caloric intake; pt enjoys water throughout the day and caregiver says it helps with BS. Diet Orders (From admission, onward) Start Ordered 12/04/22 1145 DIET REGULAR START NOW 12/04/22 1134 Anthropometrics: Height: 175.3 cm (5' 9) Weight: 52.6 kg (116 lb) Dosing Weight: 53 kg (116 lb 13.5 oz) Usual Weight: 56 kg (123 lb 7.3 oz) x 7 months prior. Usual Weight Obtained From: Chart Review Body mass index is 17.13 kg/m?. Weight change percentage over time: No sig wt changes x 1,3 or 7 months Physical Exam: Subcutaneous fat loss: Moderate (atrophy noted, pts baseline per caregiver.) Muscle loss: Moderate (atrophy noted, pts baseline per caregiver.) Potential micronutrient deficiency: No deficiency identified Edema/Ascites: No edema GI Symptoms: Chewing problems (prefers soft diet.) Functional Status: No Change Potential Signs of Inflammation: Chronic condition MNT Billing: $ Initial Assessment: 1-15 minutes SIGNATURE: Rupinder Bartlett RD PATIENT NAME: Inna Ortiz DATE: December 05, 2022 TIME: 2:49 PM Normal [facility] CBC W Auto Differential pane l (Bld)on 12-04-2022 Basophils (Bld) [#/Vol] 0.06 10*3/uL Normal <0.11 [facility] Comment on above: Order Comment: Speci men Type: BLOOD SPECIMEN Ordering Facility: [facility] Address: [address] [place] [address] Performed By: #### 5 7021-8 #### [facility] CLIA [id number] [address] [place] Basophils/100 WBC (Bld) 0.8 % Normal [facility] Comment on above: Order Comment: Speci men Type: BLOOD SPECIMEN Ordering Facility: [facility] Address: [address] [place] [address] Performed By: #### 5 7021-8 #### [facility] CLIA [id number] [address] [place] Differential cell count method Nom (Bld) Auto Normal [facility] Comment on above: Order Comment: Speci men Type: BLOOD SPECIMEN Ordering Facility: [facility] Address: [address] [place] [address] Performed By: #### 5 7021-8 #### [facility] CLIA [id number] 1 [place] [address] [place] Eosinophils (Bld) [#/Vol] 0.12 10*3/uL Normal <0.46 [facility] Comment on above: Order Comment: Speci men Type: BLOOD SPECIMEN Ordering Facility: [facility] Address: [address] [place] [address] Performed By: #### 5 7021-8 #### [facility] CLIA [id number] [address] [place] Eosinophils/100 WBC (Bld) 1.5 % Normal [facility] Comment on above: Order Comment: Speci men Type: BLOOD SPECIMEN Ordering Facility: [facility] Address: [address] [place] [address] Performed By: #### 5 7021-8 #### [facility] CLIA [id number] [address] Erythrocyte distribution width (RBC) [Ratio] 13.7 % Normal 11.5-15.0 [facility] Comment on above: Order Comment: Speci men Type: BLOOD SPECIMEN Ordering Facility: [facility] Address: [address] [place] [address] Performed By: #### 5 7021-8 #### [facility] CLIA [id number] [address] [place] Hematocrit (Bld) [Volume fraction] 45.8 % Normal 39.0-51.0 [facility] Comment on above: Order Comment: Speci men Type: BLOOD SPECIMEN Ordering Facility: [facility] Address: [address] [place] [address] Performed By: #### 5 7021-8 #### [facility] CLIA [id number] [address] [place] Hemoglobin (Bld) [Mass/Vol] 14.6 g/dL Normal 13.0-17.0 [facility] Comment on above: Order Comment: Speci men Type: BLOOD SPECIMEN Ordering Facility: [facility] Address: [address] [place] [address] Performed By: #### 5 7021-8 #### [facility] CLIA [id number] [address] [place] Immature granulocytes (Bld) [#/Vol] 10*3/uL Normal <0.10 [facility] Comment on above: Order Comment: Speci men Type: BLOOD SPECIMEN Ordering Facility: [facility] Address: [address] [place] [address] Performed By: #### 5 7021-8 #### [facility] CLIA [id number] [address] [place] Immature granulocytes/100 WBC (Bld) 0.3 % Normal [facility] Comment on above: Order Comment: Speci men Type: BLOOD SPECIMEN Ordering Facility: [facility] Address: [address] [place] [address] Performed By: #### 5 7021-8 #### [facility] CLIA [id number] [address] Lymphocytes (Bld) [#/Vol] 1.33 10*3/uL Normal 1.00-4.0 0 [facility] Comment on above: Order Comment: Speci men Type: BLOOD SPECIMEN Ordering Facility: [facility] Address: [address] [place] [address] Performed By: #### 5 7021-8 #### [facility] CLIA [id number] [address] Lymphocytes/100 WBC (Bld) 17.0 % Normal [facility] Comment on above: Order Comment: Speci men Type: BLOOD SPECIMEN Ordering Facility: [facility] Address: [address] [place] [address] Performed By: #### 5 7021-8 #### [facility] CLIA [id number] [address] MCH (RBC) [Entitic mass] 27.5 pg Normal 26.0-34.0 [facility] Comment on above: Order Comment: Speci men Type: BLOOD SPECIMEN Ordering Facility: [facility] Address: [address] [place] [address] Performed By: #### 5 7021-8 #### [facility] CLIA [id number] [address] [place] [facility] MCHC (RBC) [Mass/Vol] 31.9 g/dL Normal 30.5-36.0 [facility] Comment on above: Order Comment: Speci men Type: BLOOD SPECIMEN Ordering Facility: [facility] Address: [address] [place] [address] Performed By: #### 5 7021-8 #### [facility] CLIA [id number] [address] MCV (RBC) [Entitic vol] 86.3 fL Normal 80.0-100.0 [facility] Comment on above: Order Comment: Speci men Type: BLOOD SPECIMEN Ordering Facility: [facility] Address: [address] [place] [address] Performed By: #### 5 7021-8 #### [facility] CLIA [id number] [address] [place] Monocytes (Bld) [#/Vol] 0.59 10*3/uL Normal <0.87 [facility] Comment on above: Order Comment: Speci men Type: BLOOD SPECIMEN Ordering Facility: [facility] Address: [address] [place] [address] Performed By: #### 5 7021-8 #### [facility] CLIA [id number] [address] Monocytes/100 WBC (Bld) 7.5 % Normal [facility] Comment on above: Order Comment: Speci men Type: BLOOD SPECIMEN Ordering Facility: [facility] Address: [address] [place] [address] Performed By: #### 5 7021-8 #### [facility] CLIA [id number] [address] [place] Neutrophils (Bld) [#/Vol] 5.72 10*3/uL Normal 1.45-7.5 0 [facility] Comment on above: Order Comment: Speci men Type: BLOOD SPECIMEN Ordering Facility: [facility] Address: [address] [place] [address] Performed By: #### 5 7021-8 #### [facility] CLIA [id number] [address] [place] Neutrophils/100 WBC (Bld) 72.9 % Normal [facility] Comment on above: Order Comment: Speci men Type: BLOOD SPECIMEN Ordering Facility: [facility] Address: [address] [place] [address] Performed By: #### 5 7021-8 #### [facility] CLIA [id number] [address] [place] Nucleated RBC (Bld) [#/Vol] 10*3/uL Normal <0.01 [facility] Comment on above: Order Comment: Speci men Type: BLOOD SPECIMEN Ordering Facility: [facility] Address: [address] [place] [address] Performed By: #### 5 7021-8 #### [facility] CLIA [id number] [address] [place] Nucleated RBC/100 WBC (Bld) [Ratio] 0.0 /100 WBC Normal [facility] Comment on above: Order Comment: Speci men Type: BLOOD SPECIMEN Ordering Facility: [facility] Address: [address] [place] [address] Performed By: #### 5 7021-8 #### [facility] CLIA [id number] [address] [place] Platelet mean volume (Bld) [Entitic vol] 10.2 fL Normal 9.0-12.7 [facility] Comment on above: Order Comment: Speci men Type: BLOOD SPECIMEN Ordering Facility: [facility] Address: [address] [place] [address] Performed By: #### 5 7021-8 #### [facility] CLIA [id number] [address] [place] Platelets (Bld) [#/Vol] 198 10*3/uL Normal 150-400 [facility] Comment on above: Order Comment: Speci men Type: BLOOD SPECIMEN Ordering Facility: [facility] Address: [address] [place] [address] Performed By: #### 5 7021-8 #### [facility] CLIA [id number] [address] [place] [address] [place] RBC (Bld) [#/Vol] 5.31 10*6/uL Normal 4.20-6.00 [facility] Comment on above: Order Comment: Speci men Type: BLOOD SPECIMEN Ordering Facility: [facility] Address: [address] [place] [address] Performed By: #### 5 7021-8 #### [facility] CLIA [id number] [address] WBC (Bld) [#/Vol] 7.84 10*3/uL Normal 3.70-11.00 [facility] Comment on above: Order Comment: Speci men Type: BLOOD SPECIMEN Ordering Facility: [facility] Address: [address] [place] [address] Performed By: #### 5 7021-8 #### [facility] CLIA [id number] [address] Comprehensive metabolic 2000 panelon 12-04-2022 Albumin [Mass/Vol] 4.3 g/dL Normal 3.9-4.9 [facility] Comment on above: Order Comment: Speci men Type: BLOOD SPECIMEN Ordering Facility: [facility] Address: [address] [place] [address] Performed By: #### 5 7021-8 #### [facility] CLIA [id number] [address] ALP [Catalytic activity/Vol] 88 U/L Normal 38-113 [facility] Comment on above: Order Comment: Speci men Type: BLOOD SPECIMEN Ordering Facility: [facility] Address: [address] [place] [address] Performed By: #### 5 7021-8 #### [facility] CLIA [id number] [address] ALT With P-5'-P [Catalytic activity/Vol] 9 U/L Low 10-54 [facility] Comment on above: Order Comment: Speci men Type: BLOOD SPECIMEN Ordering Facility: [facility] Address: [address] [place] [address] Performed By: #### 5 7021-8 #### [facility] CLIA [id number] [address] Anion gap [Moles/Vol] 8 mmol/L Low 9-18 [facility] Comment on above: Order Comment: Speci men Type: BLOOD SPECIMEN Ordering Facility: [facility] Address: [address] [place] [address] Performed By: #### 5 7021-8 #### [facility] CLIA [id number] [address] STATES OF [facility] AST With P-5'-P [Catalytic activity/Vol] 15 U/L Normal 14-40 [facility] Comment on above: Order Comment: Speci men Type: BLOOD SPECIMEN Ordering Facility: [facility] Address: [address] [place] [address] Performed By: #### 5 7021-8 #### [facility] CLIA [id number] [address] [place] Bilirubin [Mass/Vol] 0.5 mg/dL Normal 0.2-1.3 [facility] Comment on above: Order Comment: Speci men Type: BLOOD SPECIMEN Ordering Facility: [facility] Address: [address] [place] [address] Performed By: #### 5 7021-8 #### [facility] CLIA [id number] [address] [place] Calcium [Mass/Vol] 9.4 mg/dL Normal 8.5-10.2 [facility] Comment on above: Order Comment: Speci men Type: BLOOD SPECIMEN Ordering Facility: [facility] Address: [address] [place] [address] Performed By: #### 5 7021-8 #### [facility] CLIA [id number] 1 [place] [address] [place] Chloride [Moles/Vol] 105 mmol/L Normal 97-105 [facility] Comment on above: Order Comment: Speci men Type: BLOOD SPECIMEN Ordering Facility: [facility] Address: [address] [place] [address] Performed By: #### 5 7021-8 #### [facility] CLIA [id number] [address] [place] CO2 [Moles/Vol] 29 mmol/L Normal 22-30 [facility] Comment on above: Order Comment: Speci men Type: BLOOD SPECIMEN Ordering Facility: [facility] Address: [address] [place] [address] Performed By: #### 5 7021-8 #### [facility] CLIA [id number] [address] STATES OF [facility] Creatinine [Mass/Vol] 0.88 mg/dL Normal 0.73-1.22 [facility] Comment on above: Order Comment: Jt ignacio Type: BLOOD SPECIMEN Ordering Facility: [facility] Address: [address] [place] [address] Performed By: #### 5 7021-8 #### [facility] CLIA [id number] [address] Creatinine and Glomerular filtration rate.predicted panel (S/P/Bld) 95 mL/min/1.73m??? Normal >=60 [facility] Comment on above: Order Comment: Jt ignacio Type: BLOOD SPECIMEN Ordering Facility: [facility] Address: [address] [place] [address] Result Comment: [place] mated Glomerular Filtration Rate (eGFR) is calculated using the 2020 CKD-EPI creatinine equation. This equation utilizes serum creatinine, sex, and age as parameters. The creatinine assay has traceable calibration to isotope dilution-mass spectrometry. Refer to KDIGO guidelines for clinical interpretation. In patients with unstable renal function, e.g. those with acute kidney injury, the eGFR may not accurately reflect actual GFR. Performed By: #### 5 7021-8 #### [facility] CLIA [id number] [address] [place] [address] [place] Glucose [Mass/Vol] 94 mg/dL Normal 74-99 [facility] Comment on above: Order Comment: Susiekyle pierre Type: BLOOD SPECIMEN Ordering Facility: [facility] Address: [address] [place] [address] Result Comment: The [place] Diabetes Association (ADA) provides guidance for cutoff values for fasting glucose and random glucose. The ADA defines fasting as no caloric intake for at least 8 hours. Fasting plasma glucose results between 100 to 125 mg/dL indicate increased risk for diabetes (prediabetes). Fasting plasma glucose results greater than or equal to 126 mg/dL meet the criteria for diagnosis of diabetes. In the absence of unequivocal hyperglycemia, results should be confirmed by repeat testing. In a patient with classic symptoms of hyperglycemia or hyperglycemic crisis, random plasma glucose results greater than or equal to 200 mg/dL meet the criteria for diagnosis of diabetes. Reference: Standards of Medical Care in Diabetes 2016, [place] Diabetes Association. Diabetes Care. 2016.39(Suppl 1). Performed By: #### 5 7021-8 #### [facility] CLIA [id number] [address] STATES OF [facility] Potassium [Moles/Vol] 4.3 mmol/L Normal 3.7-5.1 [facility] Comment on above: Order Comment: Speci men Type: BLOOD SPECIMEN Ordering Facility: [facility] Address: [address] [place] [address] Performed By: #### 5 7021-8 #### [facility] CLIA [id number] [address] [place] Protein [Mass/Vol] 6.8 g/dL Normal 6.3-8.0 [facility] Comment on above: Order Comment: Speci men Type: BLOOD SPECIMEN Ordering Facility: [facility] Address: [address] [place] [address] Performed By: #### 5 7021-8 #### [facility] CLIA [id number] [address] [place] Sodium [Moles/Vol] 142 mmol/L Normal 136-144 [facility] Comment on above: Order Comment: Speci men Type: BLOOD SPECIMEN Ordering Facility: [facility] Address: [address] [place] [address] Performed By: #### 5 7021-8 #### [facility] CLIA [id number] [address] [place] Urea nitrogen [Mass/Vol] 15 mg/dL Normal 9-24 [facility] Comment on above: Order Comment: Speci men Type: BLOOD SPECIMEN Ordering Facility: [facility] Address: [address] [place] [address] Performed By: #### 5 7021-8 #### [id number] 1 [place] [address] [place] HISTORY PHYSICALon HISTORY PHYSICAL HNO ID: [id number] Author: Michelle Ca APRN.CNP Service: Neurology Adult Epilepsy Author Type: Nurse Practitioner Type: HANDP Filed: 12/05/2022 9:43 AM Note Text: ----- Attestation signed by Deisi Churchill MD at 12/05/2022 1:16 PM ---- EPILEPSY CENTER ATTENDING NOTE [facility] Epilepsy Monitoring Unit Progress Note Date of Service: December 05, 2022 [facility] STAFF PHYSICIAN NOTE OF PERSONAL INVOLVEMENT IN CARE Patient was interviewed and examined by me on separate attending rounds this morning with nurse practitioner, Michelle Ca CNP. I have reviewed the history, exam, diagnosis, and plan obtained and documented by the nurse practitioner as above. I performed my own ylez-xn-evcz assessment and personally participated in the juels components. The following comments revise or confirm [...] treatment plan. Deisi Churchill MD Staff Physician [facility] Epilepsy Center Personal Pager and Cell Office: [phone] For urgent EEG review, call the Epilepsy Continuous Monitoring Unit (ECMU) at [facility] [phone] or [phone]. For overnight issues, 7pm to 7am, [place] [phone]. For in house night coverage of emergencies, call [facility] pager [phone]. ----- NEURO EPILEPSY ADMIT NOTE SERVICE DATE: 12/04/2022 SERVICE TIME: 3:00 PM NIGHT AND WEEKEND COVERAGE: After 7 pm and over the weekends, please page [phone] to contact the epilepsy resident/fellow/provider semiconductor processor ATTENDING PHYSICIAN: Dr. Churchill [facility] UNIT: [id number] - [place] Adult Epilepsy Monitoring Unit (EMU) SERVICE: Adult Epilepsy Subjective CHIEF COMPLAINT: seizure like activity PRESENT ILLNESS: This is a 67 year old right handed male with hx of TBI and ?stroke with DD who presents with a chief complaint of seizure like activity admitted for diagnostic Video EEG. He is an established patient of Dr. Lester, last seen on 11/19/2022. Portions of his note were copied, italicized, and reviewed with the patient. SEIZURE HISTORY: Patient with recurrent episodes of loc, all of which reportedly have occurred while on commode. (more content not included)... Normal [facility] TOX SCREEN ROUT URon 023 Amphetamines Confirm (U) [Mass/Vol] Negative Normal Negative [facility] Comment on above: Order Comment: Speci men Type: URINE SPECIMEN Ordering Facility: [facility] Address: [address] [place] [address] Result Comment: Cuto ff threshold at 1000 ng/mL. Performed By: #### U TOX2 #### [facility] CLIA [id number] 1 [place] [address] [place] BARBITURATES, URINE Negative Normal Negative [facility] Comment on above: Order Comment: Speci men Type: URINE SPECIMEN Ordering Facility: [facility] Address: [address] [place] [address] Result Comment: Cuto ff threshold at 200 ng/mL. Performed By: #### U TOX2 #### [facility] CLIA [id number] [address] [place] [address] [place] BENZODIAZEPINES, UR Negative Normal Negative [facility] Comment on above: Order Comment: Speci men Type: URINE SPECIMEN Ordering Facility: [facility] Address: [address] [place] [address] Result Comment: Cuto ff threshold at 200 ng/mL. Performed By: #### U TOX2 #### [facility] CLIA [id number] [address] Cannabinoids Screen Ql (U) Negative Normal Negative [facility] Comment on above: Order Comment: Speci men Type: URINE SPECIMEN Ordering Facility: [facility] Address: [address] [place] [address] Result Comment: Cuto ff threshold at 50 ng/mL. Performed By: #### U TOX2 #### [facility] CLIA [id number] [address] OF [facility] Cocaine Ql (U) Negative Normal Negative [facility] Comment on above: Order Comment: Speci men Type: URINE SPECIMEN Ordering Facility: [facility] Address: [address] [place] [address] Result Comment: Cuto ff threshold at 300 ng/mL. Performed By: #### U TOX2 #### [facility] CLIA [id number] [address] [place] Ethanol (U) [Mass/Vol] <11 Normal <11 [facility] Comment on above: Order Comment: Speci men Type: URINE SPECIMEN Ordering Facility: [facility] Address: [address] [place] [address] Performed By: #### U TOX2 #### [facility] CLIA [id number] [address] OF [facility] Opiates Screen Ql (U) Negative Normal Negative [facility] Comment on above: Order Comment: Speci men Type: URINE SPECIMEN Ordering Facility: [facility] Address: [address] [place] [address] Result Comment: Cuto ff threshold at 300 ng/mL. Performed By: #### U TOX2 #### [facility] CLIA [id number] [address] [place] oxyCODONE cutoff Screen (U) [Mass/Vol] Negative Normal Negative [facility] Comment on above: Order Comment: Speci men Type: URINE SPECIMEN Ordering Facility: [facility] Address: [address] [place] [address] Result Comment: Cuto ff threshold at 100 ng/mL. Performed By: #### U TOX2 #### [facility] CLIA [id number] [address] Phencyclidine Ql (U) Negative Normal Negative [facility] Comment on above: Order Comment: Speci men Type: URINE SPECIMEN Ordering Facility: [facility] Address: [address] [place] [address] Result Comment: Cuto ff threshold at 25 ng/mL. Performed By: #### U TOX2 #### [facility] CLIA [id number] [address] aPTT PPPon 12-04-2022 aPTT Coag (PPP) [Time] 27.3 s Normal 23.0-32.4 [facility] Comment on above: Order Comment: Speci men Type: BLOOD SPECIMEN Ordering Facility: [facility] Address: [address] [place] [address] Performed By: #### 1 4979-9 #### [facility] CLIA [id number] [address] CBC panel Auto (Bld)on 10-21 Erythrocyte distribution width (RBC) [Ratio] 13.7 % 11.5 - 15.0 % [facility] Hematocrit (Bld) [Volume fraction] 48.6 % 39.0 - 51.0 % [facility] Hemoglobin (Bld) [Mass/Vol] 15.1 g/dL 13.0 - 17.0 g/dL [facility] MCH (RBC) [Entitic mass] 27.8 pg 26. 0 - 34.0 pg [facility] MCHC (RBC) [Mass/Vol] 31.1 g/dL 30.5 - 36.0 g/dL [facility] MCV (RBC) [Entitic vol] 89.5 fL 80.0 - 100.0 fL [facility] Nucleated RBC (Bld) [#/Vol] <0.01 k/uL [facility] Platelet mean volume (Bld) [Entitic vol] 10.9 fL 9.0 - 12.7 fL [facility] Platelets (Bld) [#/Vol] 186 10*3/uL 150 - 400 k/uL [facility] RBC (Bld) [#/Vol] 5.43 10*6/uL 4.20 - 6.00 m/uL [facility] WBC (Bld) [#/Vol] 7.36 10*3/uL 3.70 - 11.00 k/uL [facility] Comprehensive metabolic 2000 panelon 10-21-2022 Albumin [Mass/Vol] 4.4 g/dL 3.9 - 4.9 g/dL [facility] ALP [Catalytic activity/Vol] 76 U/L 38 - 113 U/L [facility] ALT [Catalytic activity/Vol] 18 U/L 10 - 54 U/L [facility] Anion gap [Moles/Vol] 11 mmol/L 9 - 18 mmol/L [facility] AST [Catalytic activity/Vol] 25 U/L 14 - 40 U/L [facility] Bilirubin [Mass/Vol] 0.4 mg/dL 0.2 - 1 .3 mg/dL [facility] Calcium [Mass/Vol] 9.7 mg/dL 8.5 - 10. 2 mg/dL [facility] Chloride [Moles/Vol] 104 mmol/L 97 - 10 5 mmol/L [facility] CO2 [Moles/Vol] 24 mmol/L 22 - 30 mmol/L [facility] Creatinine [Mass/Vol] 0.86 mg/dL 0.73 - 1.22 mg/dL [facility] Estimated Glomerular Filtration Rate 96 mL/min/1.73m >=60 mL/min/1.7 3m [facility] Glucose [Mass/Vol] 95 mg/dL 74 - 99 mg/dL [facility] Potassium [Moles/Vol] 4.5 mmol/L 3.7 - 5.1 mmol/L [facility] Protein [Mass/Vol] 7.0 g/dL 6.3 - 8.0 g/dL [facility] Sodium [Moles/Vol] 139 mmol/L 136 - 144 mmol/L [facility] Urea nitrogen [Mass/Vol] 18 mg/dL 9 - 24 mg/dL [facility] HbA1c (Bld)on 10-21-2022 Average glucose Estimated from glycated hemoglobin (Bld) [Mass/Vol] 105 mg/dL [facility] HbA1c (Bld) [Mass fraction] 5.3 % 4.3 - 5.6 % [facility] MAGNESIUM BLDon 10-21-2022 Magnesium [Mass/Vol] 2.3 mg/dL 1.7 - 2 .3 mg/dL [facility] VITAMIN D 25 HYDROXYon 10-21 25-hydroxyvitamin D3 [Mass/Vol] 134.2 ng/mL High 31.0 - 80.0 ng/mL [facility] CNPNon 09-19-2022 CNPN Telephone (AGCARDPOB ) ----- INNA ORTIZ ([id number]) 1955 M Date Time Provider Department 09/19/22 DL WHEELER AGCARDPOB During your visit today, we recorded the following information about you: Alexis Montgomery RN 09/19/2022 9:47 AM Signed Received a call from staff at [facility] who indicated Dr. Wheeler needs to place another order that reads BP monitor, pediatric cuff. [facility]script [facility] [place]. BRIAN Garcia Danelle, RN 10/03/2022 8:33 AM Signed Addended by: INDY MENDIETA on: 10/03/2022 08:33 AM Modules accepted: Lindsey Stanton APRN.RELIEF WORKER 10/03/2022 9:51 AM Signed Addended by: LINDSEY SANTIAGO on: 10/03/2022 09:51 AM Modules accepted: Indy Cowan RN 10/03/2022 9:55 AM Signed Escript sent to [facility] [place]. BRIAN Ortiz Danelle, RN 10/03/2022 12:09 PM Signed Juliette Serrano 10 minutes ago (11:58 AM) [facility] called in stating he needs a Blood pressure monitor e-scripted instead of a cuff. Please call Norma @ [phone] [facility]. Note Indy Mendieta RN 10/03/2022 12:19 PM Signed Spoke with Norma at [facility] and they are only able to obtain manual pediatric bp cuffs. Norma states that she will notify the patient's sister. Indy Mendieta RN Allergies As of Date: 09/19/2022 Noted Allergy Reaction MACROBID (NITROFURANTOIN MONOHYD/*05/10/2021 2 - Rash CEFDINIR 05/05/2021 2 - Rash Date Reviewed: 09/04/2022 Reviewed by: Mal Carpio Jr., MD - Fully Assessed Reason for Visit: Orders [681] Primary Visit Diagnosis:Orthostatic hypotension [I95.1] [I95.1] Order(s):Miscellaneous Medical Supply (BLOOD PRESSURE CUFF)1 Each as needed. PEDIATRIC BP CUFF SIZE 10Disp: 1 EachRfl: 0 Prescriptions as of 10/03/2022 - Miscellaneous Medical Supply (BLOOD PRESSURE CUFF) [...] nitroglycerin (NITROLINGUAL) 400 mcg/spray spray Dissolve 1 [place] under the tongue every 5 minutes as [...] of 02/21/2019: Problem List As Of Date 09/19/2022 Noted Resolved Late effects of cerebrovascular disease [...] Cardiomyopathy, nonischemic (HCC) [I42.8] 04/20/2014 Atherosclerosis of [place] coronary artery of na*04/23/2015 07/19/2022 Left inguinal hernia [K40.90] 05/16/2016 10/31/2016 Overactive bladder [N32.81] 08/14/2018 Occult GI bleeding [R19.5] 08/28/2019 05/19/2020 Acid indigestion [K30] 05/19/2020 Gait abnormality [R26.9] 04/20/2021 Urinary incontinence [R32] 05/30/2021 Weight loss, abnormal [R63.4] 09/01/2021 Dysphagia [R13.10] 09/01/2021 Orthostatic hypotension [I95.1] [I95.1] 09/04/2022 Prescriptions ordered this encounter Disp Refills Start End BLOOD PRESSURE CUFF 1 Ea* 0 10/03/2022 Route: Misc Si Each as needed. PEDIATRIC BP CUFF SIZE 10 Medications Discontinued During This Encounter Prescriptions - Miscellaneous Medical Supply (BLOOD PRESSURE CUFF) (Discontinued) 1 Each as needed. PEDIATRIC BP CUFF SIZE 10 Encounter Status:Closed by ALEXIS MONTGMOERY on 09/19/22 [facility] VITAMIN D 25 HYDROXYon 08-10 25-hydroxyvitamin D3 [Mass/Vol] 146.0 ng/mL High 31.0 - 80.0 ng/mL [facility] CBC panel Auto (Bld)on 08-09 Erythrocyte distribution width (RBC) [Ratio] 13.9 % 11.5 - 15.0 % [facility] Hematocrit (Bld) [Volume fraction] 49.2 % 39.0 - 51.0 % [facility] Hemoglobin (Bld) [Mass/Vol] 15.7 g/dL 13.0 - 17.0 g/dL [facility] MCH (RBC) [Entitic mass] 27.9 pg 26. 0 - 34.0 pg [facility] MCHC (RBC) [Mass/Vol] 31.9 g/dL 30.5 - 36.0 g/dL [facility] MCV (RBC) [Entitic vol] 87.4 fL 80.0 - 100.0 fL [facility] Nucleated RBC (Bld) [#/Vol] <0.01 k/uL [facility] Platelet mean volume (Bld) [Entitic vol] 11.0 fL 9.0 - 12.7 fL [facility] Platelets (Bld) [#/Vol] 246 10*3/uL 150 - 400 k/uL [facility] RBC (Bld) [#/Vol] 5.63 10*6/uL 4.20 - 6.00 m/uL [facility] WBC (Bld) [#/Vol] 6.11 10*3/uL 3.70 - 11.00 k/uL [facility] Comprehensive metabolic 2000 panelon 08-09-2022 Albumin [Mass/Vol] 4.6 g/dL 3.9 - 4.9 g/dL [facility] ALP [Catalytic activity/Vol] 87 U/L 38 - 113 U/L [facility] ALT [Catalytic activity/Vol] 17 U/L 10 - 54 U/L [facility] Anion gap [Moles/Vol] 11 mmol/L 9 - 18 mmol/L [facility] AST [Catalytic activity/Vol] 20 U/L 14 - 40 U/L [facility] Bilirubin [Mass/Vol] 0.6 mg/dL 0.2 - 1 .3 mg/dL [facility] Calcium [Mass/Vol] 10.2 mg/dL 8.5 - 10. 2 mg/dL [facility] Chloride [Moles/Vol] 104 mmol/L 97 - 10 5 mmol/L [facility] CO2 [Moles/Vol] 26 mmol/L 22 - 30 mmol/L [facility] Creatinine [Mass/Vol] 1.00 mg/dL 0.73 - 1.22 mg/dL [facility] Estimated Glomerular Filtration Rate 84 mL/min/1.73m >=60 mL/min/1.7 3m [facility] Glucose [Mass/Vol] 105 mg/dL High 74 - 99 mg/dL [facility] Potassium [Moles/Vol] 4.4 mmol/L 3.7 - 5.1 mmol/L [facility] Protein [Mass/Vol] 7.3 g/dL 6.3 - 8.0 g/dL [facility] Sodium [Moles/Vol] 141 mmol/L 136 - 144 mmol/L [facility] Urea nitrogen [Mass/Vol] 11 mg/dL 9 - 24 mg/dL [facility] HbA1c (Bld)on 08-09-2022 Average glucose Estimated from glycated hemoglobin (Bld) [Mass/Vol] 111 mg/dL [facility] HbA1c (Bld) [Mass fraction] 5.5 % 4.3 - 5.6 % [facility] LIPID PANEL, NONFASTINGon Cholesterol [Mass/Vol] 144 mg/dL <200 mg/dL [facility] HDL Cholesterol, Nonfasting 56 mg/dL >39 mg/dL [facility] LDL Cholesterol, Nonfasting 78 mg/dL <100 mg/dL [facility] LDL/HDL Ratio, Nonfasting 1.39 mg/dL <2 .54 mg/dL [facility] Non HDL Cholesterol, Nonfasting 88 mg/dL <130 mg/dL [facility] Total Chol/HDL Ratio, Nonfasting 2.57 mg/dL <5.10 mg/dL [facility] Triglycerides, Nonfasting 52 mg/dL <150 mg/dL [facility] VLDL Cholesterol, Nonfasting 10 mg/dL <30 mg/dL [facility] MAGNESIUM BLDon 08-09-2022 Magnesium [Mass/Vol] 2.4 mg/dL High 1.7 - 2 .3 mg/dL [facility] OSMOLALITY URINEon Osmolality (U) [Osmolality] 124 mosm/kg 50 - 1,200 mOsm/kg [facility] Serum or plasma gastrin chris urement (mass/volume)Ordered By: Mahogany Javier on 06-28-2022 Gastrin [Mass/Vol] 433 pg/mL 0-115 [facility] Comment on above: Siemens Immulite 200 0 Immunochemiluminometric assay (ICMA)Values obtained with different assay methods or kits cannotbe used interchangeably. Results cannot be interpreted asabsolute evidence of the presence or absence of malignantdisease.Performed at: [facility] [id number] Director: Gianna Singh MD, Phone: [phone] Absolute lymphocyte countOrd ered By: Dr. Baker on 06-26-2022 Lymphocytes Auto (Unsp spec) [#/Vol] 2.68 10*3/uL 0.83-4.51 [facility] Basophil percentageOrdered B y: Dr. Baker on 06-26-2022 Basophil percentage 0 SEEN /hpf 0-5 [facility] Basophils/100 WBC (Bld) 1.0 % 0-1 [facility] Bilirubin [Mass/Vol] 0.30 mg/dL 0.20-1.00 [facility] Comment on above: For patients on eltr ombopag therapy, use of Dimension [place] TBIL is not recommended. Chloride [Moles/Vol] 107 mmol/L 98-107 [facility] Eosinophils/100 WBC (Bld) 3.5 % 0-5 [facility] Glucose [Mass/Vol] 93 mg/dL 74-106 [facility] Neutrophils (Bld) [#/Vol] 3.2 10*3/uL 2.0-7.7 [facility] Neutrophils/100 WBC (Bld) 46.7 % 47-70 [facility] Potassium [Moles/Vol] 4.0 mmol/L 3.5-5.1 [facility] Protein [Mass/Vol] 6.8 g/dL 6.4-8.2 [facility] Sodium [Moles/Vol] 143 mmol/L 136-145 [facility] WBC (Bld) [#/Vol] 6.9 10*3/uL 4.4-11.0 [facility] Bilirubin Test strip Ql (U)O rdered By: Dr. Baker on 06-26-2022 Bilirubin Ql (U) Negative Negative [facility] Blood erythrocytes count (nu mber/volume)Ordered By: Dr. Baker on 06-26-2022 RBC (Bld) [#/Vol] 5.11 10*6/uL 4.6-6.2 [facility] Blood hemoglobin measurement (mass/volume)Ordered By: Dr. Baker on 06-26-2022 Hemoglobin (Bld) [Mass/Vol] 14.2 g/dL 13.0-16.5 [facility] Blood lymphocytes/100 leukoc ytesOrdered By: Dr. Baker on 06-26-2022 Lymphocytes/100 WBC (Bld) 38.9 % 19-41 [facility] Blood monocytes/100 leukocyt esOrdered By: Dr. Baker on 06-26-2022 Monocytes/100 WBC (Bld) 9.6 % 0-10 [facility] Blood platelet mean volumeOr dered By: Dr. Baker on 06-26-2022 Platelet mean volume (Bld) [Entitic vol] 10.7 fL 6.2-12.0 [facility] Determination of erythrocyte mean corpuscular volume (MCV)Ordered By: Dr. Baker on 06-26-2022 MCV (RBC) [Entitic vol] 87.5 fL 80-94 [facility] Hematocrit Auto (Bld) [Volum e fraction]Ordered By: Dr. Baker on 06-26-2022 Hematocrit (Bld) [Volume fraction] 44.7 % 40-54 [facility] Ketones Test strip Ql (U)Ord ered By: Dr. Baker on 06-26-2022 Ketones Ql (U) Negative Negative [facility] Laboratory - Chemistry and C hemistry - challengeOrdered By: Dr. Baker on 06-26-2022 ALP [Catalytic activity/Vol] 72 U/L 45-117 [facility] ALT [Catalytic activity/Vol] 19 U/L 16-61 [facility] CO2 [Moles/Vol] 30.0 mmol/L 21.0-32.0 [facility] Globulin (S) [Mass/Vol] 3.3 g/dL 2.2-4.2 [facility] Urea nitrogen/Creatinine [Mass ratio] 17.9 mg/mg 10-20 [facility] Laboratory - Hematology and Cell countsOrdered By: Dr. Baker on 06-26-2022 Erythrocyte distribution width (RBC) [Entitic vol] 44.6 fL 35.1-43.9 [facility] Erythrocyte distribution width (RBC) [Ratio] 13.8 % 11.6-14.6 [facility] Immature granulocytes/100 WBC (Bld) 0.300 % 0.0-0.9 [facility] Comment on above: IG% - Immature Granu locytes (promyelocytes, myelocytes and metamyelocytes) > 1% indicates that a LEFT SHIFT is Present. MCH (RBC) [Entitic mass] 27.8 pg 27.0-32.0 [facility] Nucleated RBC/100 WBC (Bld) [Ratio] 0 % 0-5 [facility] MCHC Auto (RBC) [Mass/Vol]Or dered By: Dr. Baker on 06-26-2022 MCHC (RBC) [Mass/Vol] 31.8 g/dL 32-36 [facility] Mucus LM Ql (Urine sed)Order ed By: Dr. Baker on 06-26-2022 Mucus Ql (Urine sed) 0 SEEN /hpf [facility] Nitrite Test strip Ql (U)Ord ered By: Dr. Baker on 06-26-2022 Nitrite Ql (U) Negative Negative [facility] No Panel InformationOrdered By: Dr. Baker on 06-26-2022 Estimated Creatinine Clearance Calc 54.29 ml/min [facility] Estimated GFR (MDRD) Amer 90 mL/min >60 [facility] Comment on above: GFR Calc Estimated GFR (MDRD) Non-Af Amer 74 mL/min >60 [facility] Comment on above: Non- GFR Calc Thyroid Stimulating Hormone (TSH) 3.30 uIU/mL 0.358-3.74 [facility] Troponin I High Sensitivity 6 pg/mL 3.0-78.0 [facility] Comment on above: Please Note: New [place] t Units and Gender Specific Reference Ranges. For more information see Policy Stat Procedure [place] High Sensitivity Troponin (TNIH) and attachments. Platelets bldOrdered By: Dr. Baker on 06-26-2022 Platelets (Bld) [#/Vol] 195 10*3/uL 150-450 [facility] Protein Test strip Ql (U)Ord ered By: Dr. Baker on 06-26-2022 Protein Ql (U) Negative Negative [facility] Serum or plasma albumin chris urement (mass/volume)Ordered By: Dr. Baker on 06-26-2022 Albumin [Mass/Vol] 3.5 g/dL 3.2-5.0 [facility] Serum or plasma albumin/glob ulin mass ratioOrdered By: Dr. Baker on 06-26-2022 Albumin/Globulin [Mass ratio] 1.1 {ratio} 0.9-2.4 [facility] Serum or plasma calcium chris urement (mass/volume)Ordered By: Dr. Baker on 06-26-2022 Calcium [Mass/Vol] 9.0 mg/dL 8.5-10.1 [facility] Serum or plasma creatinine m easurement (mass/volume)Ordered By: Dr. Baker on 06-26-2022 Creatinine [Mass/Vol] 1.06 mg/dL 0.70-1.30 [facility] Comment on above: The validity of the calculated GFR & GFRAA in patients over 70 years has not been determined. Clinical correlation is essential. Serum or plasma urea nitroge n measurement (mass/volume)Ordered By: Dr. Baker on 06-26-2022 Urea nitrogen [Mass/Vol] 19 mg/dL 7-18 [facility] Squamous epithelial cells de tection in urine sediment by light microscopyOrdered By: Dr. Baker on 06-26-2022 Epithelial cells.squamous LM Ql (Urine sed) 0 SEEN /hpf 0-5 [facility] Thin prep Papanicolaou smear with manual screeningOrdered By: Dr. Baker on 06-26-2022 Thin prep Papanicolaou smear with manual screening 14 U/L 15-37 [facility] Thin prep Papanicolaou smear with manual screening 6 5-15 [facility] Urine blood detectionOrdered By: Dr. Baker on 06-26-2022 RBC Ql (U) 10 /ul Negative [facility] RBC Ql (U) 0 SEEN /hpf 0-5 [facility] Urine clarityOrdered By: Dr. Baker on 06-26-2022 Clarity (U) Sl. Cloudy Clear [facility] Urine color determinationOrd ered By: Dr. Baker on 06-26-2022 Color (U) Yellow Yellow [facility] Urine glucose detectionOrder ed By: Dr. Baker on 06-26-2022 Glucose Ql (U) Normal mg/dl Normal [facility] Urine leukocyte esterase det ection by dipstickOrdered By: Dr. Baker on 06-26-2022 Leukocyte esterase Test strip Ql (U) Negative Negative [facility] Urine pHOrdered By: Dr. Bauer ne on 06-26-2022 pH (U) 7.0 [pH] 5.0 - 8.0 [facility] Urine sediment bacteria coun t by microscopy (number/high power field)Ordered By: Dr. Baker on 06-26-2022 Bacteria LM.HPF (Urine sed) [#/Area] 0 /[HPF] None Seen [facility] Urine specific gravity measu rementOrdered By: Dr. Baker on 06-26-2022 Specific gravity (U) [Rel density] 1.010 1.002-1.03 0 [facility] Urobilinogen Auto test strip Ql (U)Ordered By: Dr. Baker on 06-26-2022 Urobilinogen Ql (U) Normal mg/dl Normal [facility] Laboratory - Hematology and Cell countson 04-05-2022 HbA1c (Bld) [Mass fraction] 5.8 % 4.2-6.3 [facility] Glucose Glucometer (BldC) [M ass/Vol]Ordered By: Diomedes Bey on 03-29-2022 Glucose [Mass/Vol] 101 mg/dL 74-106 [facility] Comment on above: MANAGEMENT OF PATIEN T CARE PER NURSING PROTOCOL Absolute lymphocyte countOrd ered By: Dr. Rodriguez on 03-16-2022 Lymphocytes Auto (Unsp spec) [#/Vol] 1.58 10*3/uL 0.83-4.51 [facility] Basophil percentageOrdered B y: Dr. Rodriguez on 03-16-2022 Basophil percentage 0 SEEN /hpf 0-5 [facility] Basophils/100 WBC (Bld) 0.7 % 0-1 [facility] Bilirubin [Mass/Vol] 0.50 mg/dL 0.20-1.00 [facility] Comment on above: For patients on eltr ombopag therapy, use of Dimension [place] TBIL is not recommended. Chloride [Moles/Vol] 107 mmol/L 98-107 [facility] Eosinophils/100 WBC (Bld) 2.2 % 0-5 [facility] Glucose [Mass/Vol] 121 mg/dL 74-106 [facility] Comment on above: Fasting Glucose resu lt from 100 to 125 mg/dL suggests IMPAIRED HOMEOSTASIS per A.D.A. criteria. Neutrophils (Bld) [#/Vol] 4.9 10*3/uL 2.0-7.7 [facility] Neutrophils/100 WBC (Bld) 66.3 % 47-70 [facility] Potassium [Moles/Vol] 4.0 mmol/L 3.5-5.1 [facility] Protein [Mass/Vol] 6.9 g/dL 6.4-8.2 [facility] Sodium [Moles/Vol] 141 mmol/L 136-145 [facility] WBC (Bld) [#/Vol] 7.4 10*3/uL 4.4-11.0 [facility] Bilirubin Test strip Ql (U)O rdered By: Dr. Rodriguez on 03-16-2022 Bilirubin Ql (U) Negative Negative [facility] Blood erythrocytes count (nu mber/volume)Ordered By: Dr. Rodriguez on 03-16-2022 RBC (Bld) [#/Vol] 5.16 10*6/uL 4.6-6.2 [facility] Blood hemoglobin measurement (mass/volume)Ordered By: Dr. Rodriguez on 03-16-2022 Hemoglobin (Bld) [Mass/Vol] 14.1 g/dL 13.0-16.5 [facility] Blood lymphocytes/100 leukoc ytesOrdered By: Dr. Rodriguez on 03-16-2022 Lymphocytes/100 WBC (Bld) 21.3 % 19-41 [facility] Blood monocytes/100 leukocyt esOrdered By: Dr. Rodriguez on 03-16-2022 Monocytes/100 WBC (Bld) 9.2 % 0-10 [facility] Blood platelet mean volumeOr dered By: Dr. Rodriguez on 03-16-2022 Platelet mean volume (Bld) [Entitic vol] 10.1 fL 6.2-12.0 [facility] Determination of erythrocyte mean corpuscular volume (MCV)Ordered By: Dr. Rodriguez on 03-16-2022 MCV (RBC) [Entitic vol] 87.6 fL 80-94 [facility] Hematocrit Auto (Bld) [Volum e fraction]Ordered By: Dr. Rodriguez on 03-16-2022 Hematocrit (Bld) [Volume fraction] 45.2 % 40-54 [facility] Ketones Test strip Ql (U)Ord ered By: Dr. Rodriguez on 03-16-2022 Ketones Ql (U) Negative Negative [facility] Laboratory - Chemistry and C hemistry - challengeOrdered By: Dr. Rodriguez on 03-16-2022 ALP [Catalytic activity/Vol] 75 U/L 45-117 [facility] ALT [Catalytic activity/Vol] 21 U/L 16-61 [facility] CO2 [Moles/Vol] 30.0 mmol/L 21.0-32.0 [facility] Globulin (S) [Mass/Vol] 3.4 g/dL 2.2-4.2 [facility] Natriuretic peptide B (Bld) [Mass/Vol] 48.2 pg/mL 0-100 [facility] Urea nitrogen/Creatinine [Mass ratio] 22.0 mg/mg 10-20 [facility] Laboratory - Hematology and Cell countsOrdered By: Dr. Rodriguez on 03-16-2022 Erythrocyte distribution width (RBC) [Entitic vol] 43.5 fL 35.1-43.9 [facility] Erythrocyte distribution width (RBC) [Ratio] 13.5 % 11.6-14.6 [facility] Immature granulocytes/100 WBC (Bld) 0.300 % 0.0-0.9 [facility] Comment on above: IG% - Immature Granu locytes (promyelocytes, myelocytes and metamyelocytes) > 1% indicates that a LEFT SHIFT is Present. MCH (RBC) [Entitic mass] 27.3 pg 27.0-32.0 [facility] Nucleated RBC/100 WBC (Bld) [Ratio] 0 % 0-5 [facility] MCHC Auto (RBC) [Mass/Vol]Or dered By: Dr. Rodriguez on 03-16-2022 MCHC (RBC) [Mass/Vol] 31.2 g/dL 32-36 [facility] Mucus LM Ql (Urine sed)Order ed By: Dr. Rodriguez on 03-16-2022 Mucus Ql (Urine sed) 0 SEEN /hpf [facility] Nitrite Test strip Ql (U)Ord ered By: Dr. Rodriguez on 03-16-2022 Nitrite Ql (U) Negative Negative [facility] No Panel InformationOrdered By: Dr. Rodriguez on 03-16-2022 Estimated Creatinine Clearance Calc 59.06 ml/min [facility] Estimated GFR (MDRD) Amer 96 mL/min >60 [facility] Comment on above: GFR Calc Estimated GFR (MDRD) Non-Af Amer 80 mL/min >60 [facility] Comment on above: Non- GFR Calc Troponin I High Sensitivity 4 pg/mL 3.0-78.0 [facility] Comment on above: Please Note: New [place] t Units and Gender Specific Reference Ranges. For more information see Policy Stat Procedure [place] High Sensitivity Troponin (TNIH) and attachments. Platelets bldOrdered By: Dr. Rodriguez on 03-16-2022 Platelets (Bld) [#/Vol] 213 10*3/uL 150-450 [facility] Protein Test strip Ql (U)Ord ered By: Dr. Rodriguez on 03-16-2022 Protein Ql (U) Negative Negative [facility] Serum or plasma albumin chris urement (mass/volume)Ordered By: Dr. Rodriguez on 03-16-2022 Albumin [Mass/Vol] 3.5 g/dL 3.2-5.0 [facility] Serum or plasma albumin/glob ulin mass ratioOrdered By: Dr. Rodriguez on 03-16-2022 Albumin/Globulin [Mass ratio] 1.0 {ratio} 0.9-2.4 [facility] Serum or plasma calcium chris urement (mass/volume)Ordered By: Dr. Rodriguez on 03-16-2022 Calcium [Mass/Vol] 9.0 mg/dL 8.5-10.1 [facility] Serum or plasma creatinine m easurement (mass/volume)Ordered By: Dr. Rodriguez on 03-16-2022 Creatinine [Mass/Vol] 1.00 mg/dL 0.70-1.30 [facility] Comment on above: The validity of the calculated GFR & GFRAA in patients over 70 years has not been determined. Clinical correlation is essential. Serum or plasma urea nitroge n measurement (mass/volume)Ordered By: Dr. Rodriguez on 03-16-2022 Urea nitrogen [Mass/Vol] 22 mg/dL 7-18 [facility] Squamous epithelial cells de tection in urine sediment by light microscopyOrdered By: Dr. Rodriguez on 03-16-2022 Epithelial cells.squamous LM Ql (Urine sed) 0 SEEN /hpf 0-5 [facility] Thin prep Papanicolaou smear with manual screeningOrdered By: Dr. Rodriguez on 03-16-2022 Thin prep Papanicolaou smear with manual screening 11 U/L 15-37 [facility] Thin prep Papanicolaou smear with manual screening 4 5-15 [facility] Urine blood detectionOrdered By: Dr. Rodriguez on 03-16-2022 RBC Ql (U) Negative Negative [facility] RBC Ql (U) 0 SEEN /hpf 0-5 [facility] Urine clarityOrdered By: Dr. Rodriguez on 03-16-2022 Clarity (U) Clear Clear [facility] Urine color determinationOrd ered By: Dr. Rodriguez on 03-16-2022 Color (U) Yellow Yellow [facility] Urine glucose detectionOrder ed By: Dr. Rodriguez on 03-16-2022 Glucose Ql (U) Normal mg/dl Normal [facility] Urine leukocyte esterase det ection by dipstickOrdered By: Dr. Rodriguez on 03-16-2022 Leukocyte esterase Test strip Ql (U) Negative Negative [facility] Urine pHOrdered By: Dr. Cytnhia lara on 03-16-2022 pH (U) 6.5 [pH] 5.0 - 8.0 [facility] Urine sediment bacteria coun t by microscopy (number/high power field)Ordered By: Dr. Rodriguez on 03-16-2022 Bacteria LM.HPF (Urine sed) [#/Area] 0 /[HPF] None Seen [facility] Urine specific gravity measu rementOrdered By: Dr. Rodriguez on 03-16-2022 Specific gravity (U) [Rel density] 1.015 1.002-1.03 0 [facility] Urobilinogen Auto test strip Ql (U)Ordered By: Dr. Rodriguez on 03-16-2022 Urobilinogen Ql (U) Normal mg/dl Normal [facility] UA DIP, URINE (POC)on 2022 BILIRUBIN UA (POCT) Negative Negative [facility] CLARITY UA (POCT) Clear [facility] COLOR UA (POCT) Yellow [facility] GLUCOSE UA (POCT) 100 mg/dL Abnormal Negative mg/dL [facility] HEMOGLOBIN/BLOOD UA (POCT) Trace-lysed Abnormal Negative [facility] KETONE UA (POCT) Trace Negative mg/dL [facility] LEUKOCYTES UA (POCT) Negative Negative [facility] NITRITE UA (POCT) Negative Negative [facility] PH UA (POCT) 5.5 4.5 - 8.0 [facility] Protein Ql (U) Negative Negative mg/dL [facility] SPECIFIC GRAVITY UA (POCT) 1.010 1.005 - 1.030 [facility] UROBILINOGEN UA (POCT) 0.2 E.U./dL Batsheva l E.U./dL [facility] Basophil percentageOrdered B y: Mahogany Javier on 03-06-2022 Basophil percentage < 0.9 mg/dL 0.70-1.30 [facility] No Panel InformationOrdered By: Mahogany Javier on 03-06-2022 Bedside Estimated GFR (eGFR) > 60.0000 mL/min >60 [facility] Comprehensive metabolic 2000 panelon 03-02-2022 Albumin [Mass/Vol] 4.6 g/dL 3.9 - 4.9 g/dL [facility] ALP [Catalytic activity/Vol] 78 U/L 38 - 113 U/L [facility] ALT [Catalytic activity/Vol] 17 U/L 10 - 54 U/L [facility] Anion gap [Moles/Vol] 14 mmol/L 9 - 18 mmol/L [facility] AST [Catalytic activity/Vol] 18 U/L 14 - 40 U/L [facility] Bilirubin [Mass/Vol] 0.5 mg/dL 0.2 - 1 .3 mg/dL [facility] Calcium [Mass/Vol] 10.0 mg/dL 8.5 - 10. 2 mg/dL [facility] Chloride [Moles/Vol] 101 mmol/L 97 - 10 5 mmol/L [facility] CO2 [Moles/Vol] 24 mmol/L 22 - 30 mmol/L [facility] Creatinine [Mass/Vol] 0.91 mg/dL 0.73 - 1.22 mg/dL [facility] Estimated Glomerular Filtration Rate 94 mL/min/1.73m >=60 mL/min/1.7 3m [facility] Glucose [Mass/Vol] 92 mg/dL 74 - 99 mg/dL [facility] Potassium [Moles/Vol] 4.2 mmol/L 3.7 - 5.1 mmol/L [facility] Protein [Mass/Vol] 7.4 g/dL 6.3 - 8.0 g/dL [facility] Sodium [Moles/Vol] 139 mmol/L 136 - 144 mmol/L [facility] Urea nitrogen [Mass/Vol] 22 mg/dL 9 - 24 mg/dL [facility] T3 FREE [facility] 03-02-2022 Free T3 [Mass/Vol] 2.6 pg/mL 2.3 - 4.1 pg/mL [facility] T4 FREE/FREE THYROXon 2022 Free T4 [Mass/Vol] 1.3 ng/dL 0.9 - 1.7 ng/dL [facility] TSH Don 03-02-2022 TSH Qn 1.460 m[IU]/L 0.270 - 4.200 mIU/L [facility] CBC panel Auto (Bld)on 03-01 Erythrocyte distribution width (RBC) [Ratio] 13.9 % 11.5 - 15.0 % [facility] Hematocrit (Bld) [Volume fraction] 49.6 % 39.0 - 51.0 % [facility] Hemoglobin (Bld) [Mass/Vol] 15.3 g/dL 13.0 - 17.0 g/dL [facility] MCH (RBC) [Entitic mass] 28.0 pg 26. 0 - 34.0 pg [facility] MCHC (RBC) [Mass/Vol] 30.8 g/dL 30.5 - 36.0 g/dL [facility] MCV (RBC) [Entitic vol] 90.7 fL 80.0 - 100.0 fL [facility] Nucleated RBC (Bld) [#/Vol] <0.01 k/uL [facility] Platelet mean volume (Bld) [Entitic vol] 11.1 fL 9.0 - 12.7 fL [facility] Platelets (Bld) [#/Vol] 216 10*3/uL 150 - 400 k/uL [facility] RBC (Bld) [#/Vol] 5.47 10*6/uL 4.20 - 6.00 m/uL [facility] WBC (Bld) [#/Vol] 8.28 10*3/uL 3.70 - 11.00 k/uL [facility] HbA1c (Bld)on 03-01-2022 Average glucose Estimated from glycated hemoglobin (Bld) [Mass/Vol] 117 mg/dL [facility] HbA1c (Bld) [Mass fraction] 5.7 % High 4.3 - 5.6 % [facility] VITAMIN D 25 HYDROXYon 03-01 25-hydroxyvitamin D3 [Mass/Vol] 67.3 ng/mL 31.0 - 80.0 ng/mL [facility] ECHOon 02-13-2022 [facility] EP PanelOrdered By: Diomedes Bey on 12-02-2021 Gastrointestinal pathogens panel RUPERT+probe (Stl) [facility] No Panel InformationOrdered By: Diomedes Bey on 12-02-2021 Stool Calprotectin 121 ug/g 0-120 [facility] Comment on above: Concentration Interp retation Follow-Up<16 - 50 ug/g Normal None>50 -120 ug/g Borderline Re-evaluate in 4-6 weeks >120 ug/g Abnormal Repeat as clinically indicatedPerformed at: - [facility] [id number] Director: Sher Mohan PhD, Phone: [phone] at: [employer] [facility] [id number] Director: Gianna Singh MD, Phone: [phone] Stool Neutral Fats Normal . [facility] Comment on above: Normal (<60 Droplets /HPF) Stool Pancreatic Elastase 286 >200 [facility] Comment on above: Result Units: ug Lalitha st./g Severe Pancreatic Insufficiency: <100 Moderate Pancreatic Insufficiency: 100 - 200 Normal: >200Performed at: [employer] [facility] [id number] Director: Gianna Singh MD, Phone: [phone] Qualitative fecal fat or lip idsOrdered By: Diomedes Bey on 12-02-2021 Fat Ql (Stl) Increased . [facility] Comment on above: Normal (<100 Droplet s/HPF) Stool lactoferrin detection by immunoassayOrdered By: Diomedes Bey on 12-02-2021 Lactoferrin IA Ql (Stl) [facility] Basic metabolic 2000 panelon 11-29-2021 Anion gap [Moles/Vol] 8 mmol/L Low 9 - 18 mmol/L [facility] Calcium [Mass/Vol] 9.8 mg/dL 8.5 - 10. 2 mg/dL [facility] Chloride [Moles/Vol] 101 mmol/L 97 - 10 5 mmol/L [facility] CO2 [Moles/Vol] 28 mmol/L 22 - 30 mmol/L [facility] Creatinine [Mass/Vol] 0.92 mg/dL 0.73 - 1.22 mg/dL [facility] Estimated Glomerular Filtration Rate 93 mL/min/1.73m >=60 mL/min/1.7 3m [facility] Glucose [Mass/Vol] 157 mg/dL High 74 - 99 mg/dL [facility] Potassium [Moles/Vol] 3.7 mmol/L 3.7 - 5.1 mmol/L [facility] Sodium [Moles/Vol] 137 mmol/L 136 - 144 mmol/L [facility] Urea nitrogen [Mass/Vol] 18 mg/dL 9 - 24 mg/dL [facility] CBC panel Auto (Bld)on 11-29 Erythrocyte distribution width (RBC) [Ratio] 13.6 % 11.5 - 15.0 % [facility] Hematocrit (Bld) [Volume fraction] 46.4 % 39.0 - 51.0 % [facility] Hemoglobin (Bld) [Mass/Vol] 15.1 g/dL 13.0 - 17.0 g/dL [facility] MCH (RBC) [Entitic mass] 28.1 pg 26. 0 - 34.0 pg [facility] MCHC (RBC) [Mass/Vol] 32.5 g/dL 30.5 - 36.0 g/dL [facility] MCV (RBC) [Entitic vol] 86.4 fL 80.0 - 100.0 fL [facility] Nucleated RBC (Bld) [#/Vol] <0.01 k/uL [facility] Platelet mean volume (Bld) [Entitic vol] 10.5 fL 9.0 - 12.7 fL [facility] Platelets (Bld) [#/Vol] 249 10*3/uL 150 - 400 k/uL [facility] RBC (Bld) [#/Vol] 5.37 10*6/uL 4.20 - 6.00 m/uL [facility] WBC (Bld) [#/Vol] 6.66 10*3/uL 3.70 - 11.00 k/uL [facility] Albumin Elph [Mass/Vol]Order ed By: Diomedes Bey on 11-24-2021 Albumin [Mass/Vol] 3.9 g/dL 2.9-4.4 [facility] Aldolase ser/plasOrdered By: Diomedes Bey on 11-24-2021 Aldolase [Catalytic activity/Vol] 3.9 mU/mL 3.3-10.3 [facility] Comment on above: Performed at: [facility] [address] [id number] Director: Sher Mohan PhD, Phone: [phone] at: [facility] [id number] Director: Gianna Singh MD, Phone: [phone] Atypical perinuclear antineu trophil cytoplasmic antibodies measurementOrdered By: Diomedes Bey on 11-24-2021 Neutrophil cytoplasmic Ab.perinuclear.atypical IF (S) [Titer] <1:20 titer Neg:<1:20 [facility] Comment on above: The atypical pANCA p attern has been observed in asignificant percentage of patients with ulcerative colitis,primary sclerosing cholangitis and autoimmune hepatitis. Basophil percentageOrdered B y: Diomedes Bey on 11-24-2021 Amylase [Catalytic activity/Vol] 103 U/L 25-115 [facility] Basophil percentage < 0.2 AI 0.0-0.9 [facility] Erythrocyte sedimentation ra teOrdered By: Diomedes Bey on 11-24-2021 ESR (Bld) [Velocity] 6 mm/h 0-20 [facility] Interpretation of serum or p lasma protein pattern by immunofixation (narrative resultOrdered By: Diomedes Bey on 11-24-2021 Protein Fractions Immunofixation [place] [Interp] See comment [facility] Comment on above: Result: Not Observed Laboratory - Chemistry and C hemistry - challengeOrdered By: Diomedes Bey on 11-24-2021 CK [Catalytic activity/Vol] 50 U/L 39-308 [facility] Lipase [Catalytic activity/Vol] 308 U/L 73-393 [facility] No Panel InformationOrdered By: Diomedes Bey on 11-24-2021 Addendum Document Comment . [facility] Comment on above: Protein electrophore sis scan will follow via computer,mail, or machine taper delivery. CA 19-9 Antigen 28 U/mL 0-35 [facility] Comment on above: [employer] El ectrochemiluminescence Immunoassay(ECLIA)Values obtained with different assay methods or kits cannotbe used interchangeably. Results cannot be interpreted asabsolute evidence of the presence or absence of malignantdisease. CA 19-9 Antigen Serial Monitoring Not Reportable [facility] Centromere B Antibody <0.2 AI 0.0-0.9 [facility] Endomysial IgA Antibody Negative Negative [facility] Immunoglobulin E 351 IU/mL 6-495 [facility] Prostate Specific Antigen Screen 3.31 ng/mL 0.00-4.00 [facility] Comment on above: This test was perfor med using the TPSA assay method for theMad[facility] HospitalC[facility] [employer] chemistry system. Values obtained with differentassay methods cannot be used interchangably.When changing PSA assays in the course of monitoring apatient, additional sequential testing should be carriedout to confirm baseline values. [employer]OR WORKER Antibody <0.2 AI 0.0-0.9 [facility] Serum DNA double strand anti body assay (units/volume)Ordered By: Diomedes Bey on 11-24-2021 DNA double strand Ab Qn (S) [IU]/mL 0-9 [facility] Comment on above: Negative <5 Equivoca l 5 - 9 Positive >9 Serum IgA measurement (units /volume)on 11-24-2021 IgA Qn (S) 344 mg/dL 61-437 [facility] Work Phone: Comment on above: Performed at: [address] [id number] Director: Sher Mohan PhD, Phone: [phone] Serum Fatmata-1 antibody assay (u nits/volume)Ordered By: Diomedes Bey on 11-24-2021 Fatmata-1 extractable nuclear Ab Qn (S) <0.2 AI 0.0-0.9 [facility] Serum Scl-70 extractable nuc lear antibody assay (units/volume)Ordered By: Diomedes Bey on 11-24-2021 SCL-70 extractable nuclear Ab Qn (S) <0.2 AI 0.0-0.9 [facility] Serum Bah extractable nucl ear antibody detectionOrdered By: Diomedes Bey on 11-24-2021 Bah extractable nuclear Ab Ql (S) <0.2 AI 0.0-0.9 [facility] Serum [id number] measu rement by electrophoresisOrdered By: Diomedes Bey on 11-24-2021 Alpha 1 globulin Elph [Mass/Vol] 0.2 g/dL 0.0-0.4 [facility] Alpha 1 globulin Elph [Mass/Vol] 0.9 g/dL 0.4-1.0 [facility] Serum classic neutrophil cyt oplasmic antibody assay (units/volume)Ordered By: Diomedes Bey on 11-24-2021 Neutrophil cytoplasmic Ab.classic Qn (S) <1:20 titer Neg:<1:20 [facility] Serum globulin measurement ( mass/volume)Ordered By: Diomedes Bey on 11-24-2021 Globulin (S) [Mass/Vol] 3.4 g/dL 2.2-3.9 [facility] Serum or plasma C reactive p rotein measurement (mass/volume)Ordered By: Diomedes Bey on 11-24-2021 CRP [Mass/Vol] mg/L 0.0-3.0 [facility] Comment on above: C-Reactive Protein ( CRP) provides useful information for thediagnosis, therapy and monitoring of inflammatory processesand associated diseases. For the evaluation of Relative Riskfor Cardiovascular Disease, a High Sensitivity CRP (HSCRP)should be ordered. Serum or plasma IgA measurem ent (mass/volume)Ordered By: Diomedes Bey on 11-24-2021 IgA [Mass/Vol] 352 mg/dL 61-437 [facility] Serum or plasma IgG measurem ent (mass/volume)Ordered By: Diomedesastrid Bey on 11-24-2021 IgG [Mass/Vol] 1009 mg/dL 603-1613 [facility] Serum or plasma IgM measurem ent (mass/volume)Ordered By: Diomedesastrid Bey on 11-24-2021 IgM [Mass/Vol] 33 mg/dL 20-172 [facility] Serum or plasma beta globuli n measurement by electrophoresis (mass/volume)Ordered By: Diomedes Bey on 11-24-2021 Beta globulin Elph [Mass/Vol] 1.3 g/dL 0.7-1.3 [facility] Serum or plasma carcinoembry onic antigen measurement (mass/volume)Ordered By: Diomedes Bey on 11-24-2021 Carcinoembryonic Ag [Mass/Vol] 1.9 ng/mL 0.0-4.7 [facility] Comment on above: Nonsmokers <3.9 Smok ers <5.6[employer] Electrochemiluminescence Immunoassay(ECLIA)Values obtained with different assay methods or kitscannot be used interchangeably. Results cannot beinterpreted as absolute evidence of the presence orabsence of malignant disease. Serum or plasma gamma globul in measurement by electrophoresis (mass/volume)Ordered By: Diomedes Bey on 11-24-2021 Gamma globulin Elph [Mass/Vol] 1.0 g/dL 0.4-1.8 [facility] Serum or plasma immunoelectr ophoresis interpretation (nominal result)Ordered By: Diomedes Bey on 11-24-2021 Interpretation IEP [Interp] Comment . [facility] Comment on above: No monoclonality det ected. Serum perinuclear neutrophil cytoplasmic antibody titer by immunofluorescenceOrdered By: Diomedes Bey on 11-24-2021 Neutrophil cytoplasmic Ab.perinuclear IF (S) [Titer] <1:20 titer Neg:<1:20 [facility] Comment on above: The presence of posi tive fluorescence exhibiting P-ANCA orC-ANCA patterns alone is not specific for the diagnosis ofWegener's Granulomatosis (WG) or microscopic polyangiitis.Decisions about treatment should not be based solely onANCA IFA results. The International ANCA Group Consensusrecommends follow up testing of positive sera with both KY-3 and MPO-ANCA enzyme immunoassays. As many as 5% serumsamples are positive only by EIA. Ref. AM J Clin Wwewnc3511;111:507-513. Serum tissue transglutaminas e IgA antibody assay (units/volume)Ordered By: Diomedes Bey on 11-24-2021 tTG IgA Qn (S) <2 U/mL 0-3 [facility] Comment on above: Negative 0 - 3 Weak Positive 4 - 10 Positive >10 Tissue Transglutaminase (tTG) has been identified as the endomysial antigen. Studies have demonstr- ated that endomysial IgA antibodies have over 99% specificity for gluten sensitive enteropathy. Thin prep Papanicolaou smear with manual screeningOrdered By: Diomedes Bey on 11-24-2021 Thin prep Papanicolaou smear with manual screening 161 U/L 87-241 [facility] Thin prep Papanicolaou smear with manual screening 1.2 0.7-1.7 [facility] Total protein bloodOrdered B y: Diomedes Bey on 11-24-2021 Protein [Mass/Vol] 7.3 g/dL 6.0-8.5 [facility] - Hematology and Cell countson 10-03-2021 HbA1c (Bld) [Mass fraction] 5.8 % 4.2-6.3 [facility] Work Phone: [phone] Absolute lymphocyte counton 06-29-2021 Lymphocytes Auto (Unsp spec) [#/Vol] 1.81 10*3/uL 0.83-4.51 [facility] Work Phone: Basophil percentageon 2021 Basophils/100 WBC (Bld) 1.5 % 0-1 [facility] Work Phone: Bilirubin [Mass/Vol] 0.50 mg/dL 0.20-1.00 [facility] Work Phone: [phone] Comment on above: For patients on eltr ombopag therapy, use of Dimension [place] TBIL is not recommended. Chloride [Moles/Vol] 101 mmol/L 98-107 [facility] Work Phone: [phone] Cholesterol [Mass/Vol] 138 mg/dL <200 [facility] Work Phone: [phone] Comment on above: <200 mg/dL Desirable 200-240 mg/dL Borderline >240 mg/dL High Risk Eosinophils/100 WBC (Bld) 3.9 % 0-5 [facility] Work Phone: Glucose [Mass/Vol] 95 mg/dL 74-106 [facility] Work Phone: Neutrophils (Bld) [#/Vol] 3.6 10*3/uL 2.0-7.7 [facility] Work Phone: Neutrophils/100 WBC (Bld) 56.0 % 47-70 [facility] Work Phone: Potassium [Moles/Vol] 3.7 mmol/L 3.5-5.1 [facility] Work Phone: Protein [Mass/Vol] 7.8 g/dL 6.4-8.2 [facility] Work Phone: Sodium [Moles/Vol] 138 mmol/L 136-145 [facility] Work Phone: [phone] Triglyceride [Mass/Vol] 97 mg/dL [facility] Work Phone: Comment on above: The drugs N-Acetylcy steine and Metamizole may falsely depress this assay.Serum Triglycerides Reference Interval Normal <150 mg/dL Borderline high 150 - 199 mg/dL High 200 - 499 mg/dL Very High > or = 500 mg/dL WBC (Bld) [#/Vol] 6.5 10*3/uL 4.4-11.0 [facility] Work Phone: Blood erythrocytes count (nu mber/volume)on 06-29-2021 RBC (Bld) [#/Vol] 5.50 10*6/uL 4.6-6.2 [facility] Work Phone: Blood hemoglobin measurement (mass/volume)on 06-29-2021 Hemoglobin (Bld) [Mass/Vol] 14.7 g/dL 13.0-16.5 [facility] Work Phone: Blood lymphocytes/100 leukoc yteson 06-29-2021 Lymphocytes/100 WBC (Bld) 27.9 % 19-41 [facility] Work Phone: Blood monocytes/100 leukocyt eson 06-29-2021 Monocytes/100 WBC (Bld) 10.5 % 0-10 [facility] Work Phone: Blood platelet mean volumeon 06-29-2021 Platelet mean volume (Bld) [Entitic vol] 10.2 fL 6.2-12.0 [facility] Work Phone: Determination of erythrocyte mean corpuscular volume (MCV)on 06-29-2021 MCV (RBC) [Entitic vol] 85.5 fL 80-94 [facility] Work Phone: Hematocrit Auto (Bld) [Volum e fraction]on 06-29-2021 Hematocrit (Bld) [Volume fraction] 47.0 % 40-54 [facility] Work Phone: Laboratory - Chemistry and C hemistry - challengeon 06-29-2021 ALP [Catalytic activity/Vol] 73 U/L 45-117 [facility] Work Phone: ALT [Catalytic activity/Vol] 21 U/L 16-61 [facility] Work Phone: CO2 [Moles/Vol] 31.0 mmol/L 21.0-32.0 [facility] Work Phone: Cobalamin (Vitamin B12) [Mass/Vol] 312 pg/mL 211-911 [facility] Work Phone: [phone] Globulin (S) [Mass/Vol] 3.9 g/dL 2.2-4.2 [facility] Work Phone: [phone] Urea nitrogen/Creatinine [Mass ratio] 14.4 mg/mg 10-20 [facility] Work Phone: [phone] Laboratory - Hematology and Cell countson 06-29-2021 Erythrocyte distribution width (RBC) [Entitic vol] 44.3 fL 35.1-43.9 [facility] Work Phone: [phone] Erythrocyte distribution width (RBC) [Ratio] 14.1 % 11.6-14.6 [facility] Work Phone: [phone] Immature granulocytes/100 WBC (Bld) 0.200 % 0.0-0.9 [facility] Work Phone: [phone] Comment on above: IG% - Immature Granu locytes (promyelocytes, myelocytes and metamyelocytes) > 1% indicates that a LEFT SHIFT is Present. MCH (RBC) [Entitic mass] 26.7 pg 27.0-32.0 [facility] Work Phone: [phone] Nucleated RBC/100 WBC (Bld) [Ratio] 0 % 0-5 [facility] Work Phone: [phone] MCHC Auto (RBC) [Mass/Vol]on 06-29-2021 MCHC (RBC) [Mass/Vol] 31.3 g/dL 32-36 [facility] Work Phone: [phone] No Panel Informationon 06-29 Estimated GFR (MDRD) Amer 92 mL/min >60 [facility] Work Phone: [phone] Comment on above: GFR Calc Estimated GFR (MDRD) Non-Af Amer 76 mL/min >60 [facility] Work Phone: Comment on above: Non- GFR Calc Thyroid Stimulating Hormone (TSH) 1.79 uIU/mL 0.358-3.74 [facility] Work Phone: Vitamin D 25-Hydroxy 55.3 ng/mL [facility] Work Phone: Comment on above: Vitamin D 25(OH) Sta tus Range Deficiency <20 ng/mL (50nmol/L) Insufficiency 20 - 30 ng/mL (50 - 75 nmol/L) Sufficiency 30 - 100 ng/mL (75 - 250 nmol/L) Toxicity >100 ng/mL (>250 nmol/L) Platelets bldon 06-29-2021 Platelets (Bld) [#/Vol] 263 10*3/uL 150-450 [facility] Work Phone: Serum or plasma albumin chris urement (mass/volume)on 06-29-2021 Albumin [Mass/Vol] 3.9 g/dL 3.2-5.0 [facility] Work Phone: Serum or plasma albumin/glob ulin mass ratioon 06-29-2021 Albumin/Globulin [Mass ratio] 1.0 {ratio} 0.9-2.4 [facility] Work Phone: Serum or plasma calcium chris urement (mass/volume)on 06-29-2021 Calcium [Mass/Vol] 9.3 mg/dL 8.5-10.1 [facility] Work Phone: Serum or plasma cholesterol in HDL measurement (mass/volume)on 06-29-2021 Cholesterol in HDL [Mass/Vol] 37 mg/dL [facility] Work Phone: Comment on above: The drugs N-Acetylcy steine and Metamizole may falsely depress this assay. Reference Range HDL <40 mg/dL Low HDL Cholesterol HDL >or= 60 mg/dL High HDL Cholesterol Serum or plasma cholesterol in VLDL measurement (mass/volume)on 06-29-2021 Cholesterol in VLDL [Mass/Vol] 19 mg/dL 5-40 [facility] Work Phone: Serum or plasma creatinine m easurement (mass/volume)on 06-29-2021 Creatinine [Mass/Vol] 1.04 mg/dL 0.70-1.30 [facility] Work Phone: Comment on above: The validity of the calculated GFR & GFRAA in patients over 70 years has not been determined. Clinical correlation is essential. Serum or plasma ferritin celestine surement (mass/volume)on 06-29-2021 Ferritin [Mass/Vol] 76 ng/mL 26-388 [facility] Work Phone: Serum or plasma low density lipoprotein (LDL) cholesterol measurement (mass/volume)on 06-29-2021 Cholesterol in LDL [Mass/Vol] 82 mg/dL 0-130 [facility] Work Phone: Serum or plasma urea nitroge n measurement (mass/volume)on 06-29-2021 Urea nitrogen [Mass/Vol] 15 mg/dL 7-18 [facility] Work Phone: Thin prep Papanicolaou smear with manual screeningon 06-29-2021 Thin prep Papanicolaou smear with manual screening 14 U/L 15-37 [facility] Work Phone: Thin prep Papanicolaou smear with manual screening 6 5-15 [facility] Work Phone: UA DIP, URINE (POC)on 2021 BILIRUBIN UA (POCT) Negative Negative [facility] CLARITY UA (POCT) Cloudy [facility] COLOR UA (POCT) Yellow [facility] GLUCOSE UA (POCT) Negative Negative mg/dL [facility] HEMOGLOBIN/BLOOD UA (POCT) Moderate Abnormal Negative [facility] KETONE UA (POCT) Negative Negative mg/dL [facility] LEUKOCYTES UA (POCT) Small Abnormal Negative [facility] NITRITE UA (POCT) Positive Abnormal Negative [facility] PH UA (POCT) 5.5 4.5 - 8.0 [facility] Protein Ql (U) >=300 Abnormal Negative mg/dL [facility] SPECIFIC GRAVITY UA (POCT) 1.025 1.005 - 1.030 [facility] UROBILINOGEN UA (POCT) 0.2 E.U./dL Batsheva l E.U./dL [facility] Absolute lymphocyte counton 04-30-2021 Lymphocytes Auto (Unsp spec) [#/Vol] 1.63 10*3/uL 0.83-4.51 [facility] Work Phone: Basophil percentageon 2021 Basophils/100 WBC (Bld) 0.5 % 0-1 [facility] Work Phone: Bilirubin [Mass/Vol] 0.40 mg/dL 0.20-1.00 [facility] Work Phone: Comment on above: For patients on eltr ombopag therapy, use of Dimension [place] TBIL is not recommended. Chloride [Moles/Vol] 108 mmol/L 98-107 [facility] Work Phone: Eosinophils/100 WBC (Bld) 0.9 % 0-5 [facility] Work Phone: Glucose [Mass/Vol] 126 mg/dL 74-106 [facility] Work Phone: Comment on above: Fasting Glucose resu lt greater than or equal to 126 mg/dL suggests DIABETES MELLITUS per A.D.A. criteria. Neutrophils (Bld) [#/Vol] 7.5 10*3/uL 2.0-7.7 [facility] Work Phone: Neutrophils/100 WBC (Bld) 71.1 % 47-70 [facility] Work Phone: Potassium [Moles/Vol] 3.6 mmol/L 3.5-5.1 [facility] Work Phone: Protein [Mass/Vol] 6.8 g/dL 6.4-8.2 [facility] Work Phone: Sodium [Moles/Vol] 139 mmol/L 136-145 [facility] Work Phone: WBC (Bld) [#/Vol] 10.5 10*3/uL 4.4-11.0 [facility] Work Phone: Blood erythrocytes count (nu mber/volume)on 04-30-2021 RBC (Bld) [#/Vol] 4.59 10*6/uL 4.6-6.2 [facility] Work Phone: Blood hemoglobin measurement (mass/volume)on 04-30-2021 Hemoglobin (Bld) [Mass/Vol] 13.2 g/dL 13.0-16.5 [facility] Work Phone: Blood lymphocytes/100 leukoc yteson 04-30-2021 Lymphocytes/100 WBC (Bld) 15.5 % 19-41 [facility] Work Phone: Blood monocytes/100 leukocyt eson 04-30-2021 Monocytes/100 WBC (Bld) 11.4 % 0-10 [facility] Work Phone: Blood platelet mean volumeon 04-30-2021 Platelet mean volume (Bld) [Entitic vol] 10.9 fL 6.2-12.0 [facility] Work Phone: Determination of erythrocyte mean corpuscular volume (MCV)on 04-30-2021 MCV (RBC) [Entitic vol] 84.7 fL 80-94 [facility] Work Phone: Glucose Glucometer (BldC) [M ass/Vol]on 04-30-2021 Glucose [Mass/Vol] 169 mg/dL 74-106 [facility] Work Phone: Comment on above: MANAGEMENT OF PATIEN T CARE PER NURSING PROTOCOL Hematocrit Auto (Bld) [Volum e fraction]on 04-30-2021 Hematocrit (Bld) [Volume fraction] 38.9 % 40-54 [facility] Work Phone: Laboratory - Chemistry and C hemistry - challengeon 04-30-2021 ALP [Catalytic activity/Vol] 63 U/L 45-117 [facility] Work Phone: ALT [Catalytic activity/Vol] 25 U/L 16-61 [facility] Work Phone: CO2 [Moles/Vol] 26.0 mmol/L 21.0-32.0 [facility] Work Phone: Globulin (S) [Mass/Vol] 4.1 g/dL 2.2-4.2 [facility] Work Phone: Urea nitrogen/Creatinine [Mass ratio] 14.4 mg/mg 10-20 [facility] Work Phone: Laboratory - Hematology and Cell countson 04-30-2021 Erythrocyte distribution width (RBC) [Entitic vol] 42.4 fL 35.1-43.9 [facility] Work Phone: Erythrocyte distribution width (RBC) [Ratio] 13.6 % 11.6-14.6 [facility] Work Phone: Immature granulocytes/100 WBC (Bld) 0.600 % 0.0-0.9 [facility] Work Phone: Comment on above: IG% - Immature Granu locytes (promyelocytes, myelocytes and metamyelocytes) > 1% indicates that a LEFT SHIFT is Present. MCH (RBC) [Entitic mass] 28.8 pg 27.0-32.0 [facility] Work Phone: Nucleated RBC/100 WBC (Bld) [Ratio] 0 % 0-5 [facility] Work Phone: MCHC Auto (RBC) [Mass/Vol]on 04-30-2021 MCHC (RBC) [Mass/Vol] 33.9 g/dL 32-36 [facility] Work Phone: No Panel Informationon 04-30 Estimated Creatinine Clearance Calc 72.68 ml/min [facility] Work Phone: Estimated GFR (MDRD) Amer 100 mL/min >60 [facility] Work Phone: Comment on above: GFR Calc Estimated GFR (MDRD) Non-Af Amer 83 mL/min >60 [facility] Work Phone: Comment on above: Non- GFR Calc Platelets bldon 04-30-2021 Platelets (Bld) [#/Vol] 193 10*3/uL 150-450 [facility] Work Phone: Serum or plasma albumin chris urement (mass/volume)on 04-30-2021 Albumin [Mass/Vol] 2.7 g/dL 3.2-5.0 [facility] Work Phone: Serum or plasma albumin/glob ulin mass ratioon 04-30-2021 Albumin/Globulin [Mass ratio] 0.7 {ratio} 0.9-2.4 [facility] Work Phone: Serum or plasma calcium chris urement (mass/volume)on 04-30-2021 Calcium [Mass/Vol] 9.0 mg/dL 8.5-10.1 [facility] Work Phone: Serum or plasma creatinine m easurement (mass/volume)on 04-30-2021 Creatinine [Mass/Vol] 0.97 mg/dL 0.70-1.30 [facility] Work Phone: Comment on above: The validity of the calculated GFR & GFRAA in patients over 70 years has not been determined. Clinical correlation is essential. Serum or plasma urea nitroge n measurement (mass/volume)on 04-30-2021 Urea nitrogen [Mass/Vol] 14 mg/dL 7-18 [facility] Work Phone: Thin prep Papanicolaou smear with manual screeningon 04-30-2021 Thin prep Papanicolaou smear with manual screening 24 U/L 15-37 [facility] Work Phone: Thin prep Papanicolaou smear with manual screening 5 5-15 [facility] Work Phone: Blood manual differential co mment interpretation (narrative result)on 04-29-2021 Manual differential comment Carlton (Bld) [Interp] SCANNED [facility] Work Phone: No Panel Informationon 04-29 Thyroid Stimulating Hormone (TSH) 1.03 uIU/mL 0.358-3.74 [facility] Work Phone: Review by pathologiston Pathologist review Carlton (Unsp spec) [Interp] Reviewed [facility] Work Phone: Comment on above: Previous reported re sult: Tanya craft Edited by: RGOOD on 04/29/21:1226Neutrophilic leukocytosis.Clinical correlation necessary.Stan Dean M.D. 04/29/21 AMENDED REPORT 04/29/21 1226 PATH REV previously reported as: Tanya craft Basophil percentageon 2021 Basophil percentage 25-50 SEEN /hpf [facility] Work Phone: Lactate [Moles/Vol] 1.7 mmol/L 0.4-2.0 [facility] Work Phone: Bilirubin Test strip Ql (U)o n 04-28-2021 Bilirubin Ql (U) Negative Negative [facility] Work Phone: Culture, urineon 04-28-2021 Bacteria identified Cx Nom (U) Presumptive E. coli [facility] Work Phone: INR in Blood by Coagulation assayon 04-28-2021 INR Coag (Bld) [Relative time] 1.1 {INR} [facility] Work Phone: Ketones Test strip Ql (U)on 04-28-2021 Ketones Ql (U) 15 mg/dl Negative [facility] Work Phone: Laboratory - Coagulationon 0 04-28-2021 PT Coag (PPP) [Time] 13.5 s 11.7-14.9 [facility] Work Phone: Laboratory - Microbiology an d Antimicrobial susceptibilityon 04-28-2021 Bacteria identified Cx Nom (Bld) No growth in 5 days. [facility] Work Phone: Mucus LM Ql (Urine sed)on Mucus Ql (Urine sed) 0 SEEN /hpf [facility] Work Phone: Nitrite Test strip Ql (U)on 04-28-2021 Nitrite Ql (U) Positive Negative [facility] Work Phone: [phone] Protein Test strip Ql (U)on 04-28-2021 Protein Ql (U) 15 mg/dl Negative [facility] Work Phone: [phone] Squamous epithelial cells de tection in urine sediment by light microscopyon 04-28-2021 Epithelial cells.squamous LM Ql (Urine sed) 0-5 SEEN /hpf [facility] Work Phone: [phone] Urine blood detectionon 03-0 RBC Ql (U) 150 /ul Negative [facility] Work Phone: RBC Ql (U) 10-25 SEEN /hpf [facility] Work Phone: [phone] Urine clarityon 04-28-2021 Clarity (U) Sl. Cloudy Clear [facility] Work Phone: Urine color determinationon 04-28-2021 Color (U) Yellow Yellow [facility] Work Phone: Urine glucose detectionon Glucose Ql (U) 250 mg/dl Normal [facility] Work Phone: [phone] Urine leukocyte esterase det ection by dipstickon 04-28-2021 Leukocyte esterase Test strip Ql (U) 500 /ul Negative [facility] Work Phone: [phone] Urine pHon 04-28-2021 pH (U) 5.0 [pH] [facility] Work Phone: Urine sediment bacteria coun t by microscopy (number/high power field)on 04-28-2021 Bacteria LM.HPF (Urine sed) [#/Area] 2 /[HPF] None Seen [facility] Work Phone: [phone] Urine specific gravity measu rementon 04-28-2021 Specific gravity (U) [Rel density] 1.015 [facility] Work Phone: [phone] Urobilinogen Auto test strip Ql (U)on 04-28-2021 Urobilinogen Ql (U) Normal mg/dl Normal [facility] Work Phone: XR Knee - bilateral 4 Viewso n 11-30-2020 IMPRESSION: No acute osseous abnormality identified.. Hand Stoner: LOVE Transcribe Date/Time: Nov 30 2020 7:10A Dictated by : BREANNE DARNELL MD This examination was interpreted and the report reviewed and electronically signed by: BREANNE DARNELL MD on Nov 30 2020 7:12AM [facility] DIVISION OF RADIOLOGY * * *Final Report* * * DATE OF EXAM: Nov 29 2020 6:01PM WOX 5618 - XR KNEE 4V AP/PA/LAT/MERCH SHEEBA / PROCEDURE REASON: Gait abnormality * * * * Physician Interpretation * * * * Knee radiographs HISTORY: 65 years old Clinical information: Gait abnormality Gait abnormality in a non verbal patient. Frequent falls. TECHNIQUE: Images: XR KNEE 4V AP/PA/LAT/MERCH SHEEBA Comparison: None. RESULT: Findings: LEFT KNEE: Joint spaces are maintained. No fracture or dislocation. No joint effusion. No soft tissue abnormality identified. RIGHT KNEE: Joint spaces are maintained. Traction osteophyte extending off the upper pole of the patella. No fracture or dislocation. No joint effusion. No soft tissue abnormality identified. DIVISION OF RADIOLOGY Provider, [facility] - 11/30/2020 * * *Final Report* * * DATE OF EXAM: Nov 29 2020 6:01PM WOX 5618 - XR KNEE 4V AP/PA/LAT/MERCH SHEEBA / PROCEDURE REASON: Gait abnormality * * * * Physician Interpretation * * * * Knee radiographs HISTORY: 65 years old Clinical information: Gait abnormality Gait abnormality in a non verbal patient. Frequent falls. TECHNIQUE: Images: XR KNEE 4V AP/PA/LAT/MERCH SHEEBA Comparison: None. RESULT: Findings: LEFT KNEE: Joint spaces are maintained. No fracture or dislocation. No joint effusion. No soft tissue abnormality identified. RIGHT KNEE: Joint spaces are maintained. Traction osteophyte extending off the upper pole of the patella. No fracture or dislocation. No joint effusion. No soft tissue abnormality identified. IMPRESSION IMPRESSION: No acute osseous abnormality identified.. Hand Stoner: LOVE Transcribe Date/Time: Nov 30 2020 7:10A Dictated by : BREANNE DARNELL MD This examination was interpreted and the report reviewed and electronically signed by: BREANNE DARNELL MD on Nov 30 2020 7:12AM [facility] XR Knee - bilateral 4 ViewsO rdered By: [facility] Provider on 11-30-2020 [facility] XR Knee - bilateral 4 Viewso n 11-29-2020 Radiology Study observation (narrative) Ivonne rios [facility] Vital Signs Date Time Vital Sign Value Performing Clinician Facility 08-18-2024 14:53-0400 Diastolic blood pressure 73 mm[Hg] Dl Wheeler MD Work Phone: [facility] 08-18-2024 14:53-0400 Heart rate 70 /min Dl Wheeler MD Work Phone: [facility] 08-18-2024 14:53-0400 SaO2% (BldA) [Mass fraction] 100 % Dl Wheeler MD Work Phone: [facility] 08-18-2024 14:53-0400 Systolic blood pressure 122 mm[Hg] Dl Wheeler MD Work Phone: [facility] 08-18-2024 08:55-0400 Body mass index (BMI) [Ratio] 18.1 kg/m2 Ambar Julee HOBBING MACHINE OPERATOR.RELIEF WORKER Work Phone: [facility] 08-18-2024 08:55-0400 Body weight 55.6 kg Ambar Julee HOBBING MACHINE OPERATOR.RELIEF WORKER Work Phone: [facility] 08-18-2024 08:55-0400 Diastolic blood pressure 64 mm[Hg] Ambar Julee HOBBING MACHINE OPERATOR.RELIEF WORKER Work Phone: [facility] 08-18-2024 08:55-0400 Heart rate 66 /min Ambar Julee HOBBING MACHINE OPERATOR.RELIEF WORKER Work Phone: [facility] 08-18-2024 08:55-0400 SaO2% (BldA) [Mass fraction] 98 % Ambar Julee HOBBING MACHINE OPERATOR.RELIEF WORKER Work Phone: [facility] 08-18-2024 08:55-0400 Systolic blood pressure 114 mm[Hg] Ambar Julee HOBBING MACHINE OPERATOR.RELIEF WORKER Work Phone: [facility] 08-06-2024 15:22-0400 Body mass index (BMI) [Ratio] 18.02 kg/m2 Jasmin West APRN.RELIEF WORKER Work Phone: [facility] 08-06-2024 15:22-0400 Body weight 55.34 kg Jasmin Older HOBBING MACHINE OPERATOR.RELIEF WORKER Work Phone: [facility] 08-06-2024 15:22-0400 Diastolic blood pressure 68 mm[Hg] Jasmin Older HOBBING MACHINE OPERATOR.RELIEF WORKER Work Phone: [facility] 08-06-2024 15:22-0400 Heart rate 72 /min Jasmin Older HOBBING MACHINE OPERATOR.RELIEF WORKER Work Phone: [facility] 08-06-2024 15:22-0400 Respiratory rate 16 /min Jasmin Older HOBBING MACHINE OPERATOR.RELIEF WORKER Work Phone: [facility] 08-06-2024 15:22-0400 SaO2% (BldA) [Mass fraction] 99 % Jasmin Older HOBBING MACHINE OPERATOR.RELIEF WORKER Work Phone: [facility] 08-06-2024 15:22-0400 Systolic blood pressure 122 mm[Hg] Jasmin Older HOBBING MACHINE OPERATOR.RELIEF WORKER Work Phone: [facility] 07-29-2024 10:33-0400 Body temperature 98.6 [degF] Dr. Eliza Zamora MD Work Phone: [facility] 07-29-2024 10:33-0400 Body weight 55.[address] Eliza Zamora MD Work Phone: [facility] 07-29-2024 10:33-0400 Diastolic blood pressure 75 mm[Hg] Dr. Eliza Zamora MD Work Phone: [facility] 07-29-2024 10:33-0400 Heart rate 70 /min Dr. Eliza Zamora MD Work Phone: [facility] 07-29-2024 10:33-0400 Respiratory rate 17 /min Dr. Eliza Zamora MD Work Phone: [facility] 07-29-2024 10:33-0400 SaO2% (BldA) [Mass fraction] 99 % Dr. Eliza Zamora MD Work Phone: [facility] 07-29-2024 10:33-0400 Systolic blood pressure 127 mm[Hg] Dr. Eliza Zamora MD Work Phone: [facility] 05-21-2024 08:18-0400 Body mass index (BMI) [Ratio] 17.78 kg/m2 Ambar Julee HOBBING MACHINE OPERATOR.RELIEF WORKER Work Phone: [facility] 05-21-2024 08:18-0400 Body temperature 98.2 [degF] Ambar Julee HOBBING MACHINE OPERATOR.RELIEF WORKER Work Phone: [facility] 05-21-2024 08:18-0400 Body weight 54.6 kg Ambar Julee HOBBING MACHINE OPERATOR.RELIEF WORKER Work Phone: [facility] 05-21-2024 08:18-0400 Diastolic blood pressure 78 mm[Hg] Ambar Julee HOBBING MACHINE OPERATOR.RELIEF WORKER Work Phone: [facility] 05-21-2024 08:18-0400 Heart rate 62 /min Ambar Julee HOBBING MACHINE OPERATOR.RELIEF WORKER Work Phone: [facility] 05-21-2024 08:18-0400 SaO2% (BldA) [Mass fraction] 100 % Ambar Julee HOBBING MACHINE OPERATOR.RELIEF WORKER Work Phone: [facility] 05-21-2024 08:18-0400 Systolic blood pressure 138 mm[Hg] Ambar Julee HOBBING MACHINE OPERATOR.RELIEF WORKER Work Phone: [facility] 03-03-2024 15:00-0500 Body temperature 97.2 [degF] Chele Mixon MD Work Phone: [facility] 03-03-2024 15:00-0500 Heart rate 78 /min Chele Mixon MD Work Phone: [facility] 03-03-2024 15:00-0500 Respiratory rate 16 /min Chele Mixon MD Work Phone: [facility] 03-03-2024 14:16-0500 Body height 175.3 cm Dl Wheeler MD Work Phone: [facility] 03-03-2024 14:16-0500 Body mass index (BMI) [Ratio] 18.16 kg/m2 Dl Wheeler MD Work Phone: [facility] 03-03-2024 14:16-0500 Body weight 55.79 kg Dl Wheeler MD Work Phone: [facility] 03-03-2024 14:16-0500 Diastolic blood pressure 70 mm[Hg] Dl Wheeler MD Work Phone: [facility] Comment on above: manual cuff 03-03-2024 14:16-0500 Heart rate 77 /min Dl Wheleer MD Work Phone: [facility] 03-03-2024 14:16-0500 Respiratory rate 12 /min Dl Wheeler MD Work Phone: [facility] 03-03-2024 14:16-0500 SaO2% (BldA) [Mass fraction] 100 % Dl Wheeler MD Work Phone: [facility] 03-03-2024 14:16-0500 Systolic blood pressure 122 mm[Hg] Dl Wheeler MD Work Phone: [facility] Comment on above: manual cuff 02-25-2024 09:00-0500 Body temperature 96.3 [degF] Eliza Zamora MD Work Phone: [facility] 02-25-2024 09:00-0500 Diastolic blood pressure 76 mm[Hg] Eliza Zamora MD Work Phone: [facility] 02-25-2024 09:00-0500 Heart rate 81 /min Eliza Zamora MD Work Phone: [facility] 02-25-2024 09:00-0500 Respiratory rate 18 /min Eliza Zamora MD Work Phone: [facility] 02-25-2024 09:00-0500 SaO2% (BldA) [Mass fraction] 100 % Eliza Zamora MD Work Phone: [facility] 02-25-2024 09:00-0500 Systolic blood pressure 112 mm[Hg] Eliza Zamora MD Work Phone: [facility] 11-13-2023 14:04-0400 Body mass index (BMI) [Ratio] 18.1 kg/m2 Eliza Zamora MD Work Phone: [facility] 11-13-2023 14:04-0400 Body temperature 98.6 [degF] Eliza Zamora MD Work Phone: [facility] 11-13-2023 14:04-0400 Body weight 55.6 kg Eliza Zamora MD Work Phone: [facility] 11-13-2023 14:04-0400 Diastolic blood pressure 62 mm[Hg] Eliza Zamora MD Work Phone: [facility] 11-13-2023 14:04-0400 Heart rate 77 /min Eliza Zamora MD Work Phone: [facility] 11-13-2023 14:04-0400 Respiratory rate 18 /min Eliza Zamora MD Work Phone: [facility] 11-13-2023 14:04-0400 SaO2% (BldA) [Mass fraction] 99 % Eliza Zamora MD Work Phone: [facility] 11-13-2023 14:04-0400 Systolic blood pressure 110 mm[Hg] Eliza Zamora MD Work Phone: [facility] 08-20-2023 12:36-0400 Diastolic blood pressure 78 mm[Hg] Dl Wheeler MD Work Phone: [facility] 08-20-2023 12:36-0400 Heart rate 60 /min Dl Wheeler MD Work Phone: [facility] 08-20-2023 12:36-0400 Respiratory rate 17 /min Dl Wheeler MD Work Phone: [facility] 08-20-2023 12:36-0400 SaO2% (BldA) [Mass fraction] 100 % Dl Wheeler MD Work Phone: [facility] 08-20-2023 12:36-0400 Systolic blood pressure 131 mm[Hg] Dl Wheeler MD Work Phone: [facility] 04-30-2023 14:50-0500 Body weight 53.52 kg Eliza Zamora MD Work Phone: [facility] 04-30-2023 14:50-0500 Diastolic blood pressure 64 mm[Hg] Eliza Zamora MD Work Phone: [facility] 04-30-2023 14:50-0500 Heart rate 67 /min Eliza Zamora MD Work Phone: [facility] 04-30-2023 14:50-0500 SaO2% (BldA) [Mass fraction] 100 % Eliza Zamora MD Work Phone: [facility] 04-30-2023 14:50-0500 Systolic blood pressure 106 mm[Hg] Eliza Zamora MD Work Phone: [facility] 02-05-2023 11:47-0500 Diastolic blood pressure 74 mm[Hg] Dl Wheeler MD Work Phone: [facility] 02-05-2023 11:47-0500 Heart rate 72 /min Dl Wheeler MD Work Phone: [facility] 02-05-2023 11:47-0500 SaO2% (BldA) [Mass fraction] 99 % Dl Wheeler MD Work Phone: [facility] 02-05-2023 11:47-0500 Systolic blood pressure 122 mm[Hg] Dl Wheeler MD Work Phone: [facility] 02-05-2023 11:45-0500 Body weight 55.02 kg Dl Wheeler MD Work Phone: [facility] 11-24-2022 12:49-0400 Body weight 53.93 kg Mal Carpio Jr., MD Work Phone: [facility] 11-24-2022 12:49-0400 Diastolic blood pressure 73 mm[Hg] Mal Carpio Jr., MD Work Phone: [facility] 11-24-2022 12:49-0400 Heart rate 77 /min Mal Carpio Jr., MD Work Phone: [facility] 11-24-2022 12:49-0400 Respiratory rate 16 /min Mal Carpio Jr., MD Work Phone: [facility] 11-24-2022 12:49-0400 SaO2% (BldA) [Mass fraction] 95 % Mal Carpio Jr., MD Work Phone: [facility] 11-24-2022 12:49-0400 Systolic blood pressure 116 mm[Hg] Mal Carpio Jr., MD Work Phone: [facility] 10-20-2022 15:51-0400 Body temperature 98.1 [degF] Eliza Zamora MD Work Phone: [facility] 10-20-2022 15:51-0400 Body weight 53.8 kg Eliza Zamora MD Work Phone: [facility] 10-20-2022 15:51-0400 Diastolic blood pressure 62 mm[Hg] Eliza Zamora MD Work Phone: [facility] 10-20-2022 15:51-0400 Heart rate 77 /min Eliza Zamora MD Work Phone: [facility] 10-20-2022 15:51-0400 Respiratory rate 18 /min Eliza Zamora MD Work Phone: [facility] 10-20-2022 15:51-0400 SaO2% (BldA) [Mass fraction] 98 % Eliza Zamora MD Work Phone: [facility] 10-20-2022 15:51-0400 Systolic blood pressure 120 mm[Hg] Eliza Zamora MD Work Phone: [facility] 09-04-2022 08:32-0400 Body weight 53.98 kg Dl Wheeler MD Work Phone: [facility] 09-04-2022 08:32-0400 Diastolic blood pressure 60 mm[Hg] Dl Wheeler MD Work Phone: [facility] 09-04-2022 08:32-0400 Heart rate 88 /min Dl Wheeler MD Work Phone: [facility] 09-04-2022 08:32-0400 SaO2% (BldA) [Mass fraction] 100 % Dl Wheeler MD Work Phone: [facility] 09-04-2022 08:32-0400 Systolic blood pressure 110 mm[Hg] Dl Wheeler MD Work Phone: [facility] 08-09-2022 10:12-0400 Diastolic blood pressure 60 mm[Hg] Eliza Zamora MD Work Phone: [facility] 08-09-2022 10:12-0400 Systolic blood pressure 112 mm[Hg] Eliza Zamora MD Work Phone: [facility] 08-09-2022 09:11-0400 Body weight 53.07 kg Eliza Zamora MD Work Phone: [facility] 08-09-2022 09:11-0400 Heart rate 69 /min Eliza Zamora MD Work Phone: [facility] 08-09-2022 09:11-0400 Respiratory rate 16 /min Eliza Zamora MD Work Phone: [facility] 08-09-2022 09:11-0400 SaO2% (BldA) [Mass fraction] 94 % Eliza Zamora MD Work Phone: [facility] 07-25-2022 13:22-0400 Body height 175.[address] Eliza Zamora Work Phone: [facility] 07-25-2022 13:22-0400 Body mass index (BMI) [Ratio] 17.7 kg/m2 Dr. Eliza Zamora Work Phone: 5(746)546-543477 [place] [address] 07-25-2022 13:22-0400 Body weight 54.[address] Eliza Zamora Work Phone: 2(883)149-691087 [place] [address] 07-25-2022 13:22-0400 Diastolic blood pressure 72 mm[Hg] Dr. Eliza Zamora Work Phone: 8(020)816-774287 [place] [address] 07-25-2022 13:22-0400 Heart rate 85 /min Dr. Eliza Zamora Work Phone: 7(825)360-519087 [place] [address] 07-25-2022 13:22-0400 SaO2% (BldA) [Mass fraction] 97 % Dr. Eliza Zamora Work Phone: 3(911)909-773887 [place] [address] 07-25-2022 13:22-0400 Systolic blood pressure 112 mm[Hg] Dr. Eliza Zamora Work Phone: 0(049)962-006187 [place] [address] 06-26-2022 22:39-0400 Diastolic blood pressure 62 mm[Hg] Dr. Eliza Zamora Work Phone: 4(645)039-964687 [place] [address] 06-26-2022 22:39-0400 Heart rate 75 /min Dr. Eliza Zamora Work Phone: 0(147)423-491187 [place] [address] 06-26-2022 22:39-0400 Respiratory rate 22 /min Dr. Eliza Zamora Work Phone: 2(257)780-595987 [place] [address] 06-26-2022 22:39-0400 SaO2% (BldA) [Mass fraction] 99 % Dr. Eliza Zamora Work Phone: 4(773)020-078087 [place] [address] 06-26-2022 22:39-0400 Systolic blood pressure 118 mm[Hg] Dr. Eliza Zamora Work Phone: 6(991)275-498487 [place] [address] 06-26-2022 18:35-0400 Body height 175.[address] Eliza Zamora Work Phone: 4(547)659-386687 [place] [address] 06-26-2022 18:35-0400 Body mass index (BMI) [Ratio] 17.9 kg/m2 Dr. Eliza Zamora Work Phone: [facility] 06-26-2022 18:35-0400 Body temperature 97.2 [degF] Dr. Eliza Zamora Work Phone: [facility] 06-26-2022 18:35-0400 Body weight 55.[address] Eliza Zamora Work Phone: [facility] 05-01-2022 13:02-0500 Body weight 55.79 kg Ambar Julee HOBBING MACHINE OPERATOR.RELIEF WORKER Work Phone: [facility] 05-01-2022 13:02-0500 Diastolic blood pressure 64 mm[Hg] Ambar Julee HOBBING MACHINE OPERATOR.RELIEF WORKER Work Phone: [facility] 05-01-2022 13:02-0500 Heart rate 89 /min Ambar Julee HOBBING MACHINE OPERATOR.RELIEF WORKER Work Phone: [facility] 05-01-2022 13:02-0500 SaO2% (BldA) [Mass fraction] 99 % Ambar Julee HOBBING MACHINE OPERATOR.RELIEF WORKER Work Phone: [facility] 05-01-2022 13:02-0500 Systolic blood pressure 100 mm[Hg] Ambar Julee HOBBING MACHINE OPERATOR.RELIEF WORKER Work Phone: [facility] 04-12-2022 15:01-0500 Body mass index (BMI) [Ratio] 18.4 kg/m2 Dr. Eliza Zamora Work Phone: [facility] 04-12-2022 15:01-0500 Body weight 56.[address] Eliza Zamora Work Phone: [facility] 04-12-2022 15:01-0500 Diastolic blood pressure 75 mm[Hg] Dr. Eliza Zamora Work Phone: 6(417)794-568977 [place] [address] 04-12-2022 15:01-0500 Heart rate 76 /min Dr. Eliza Zamora Work Phone: [facility] 04-12-2022 15:01-0500 Systolic blood pressure 115 mm[Hg] Dr. Eliza Zamora Work Phone: [facility] 04-05-2022 10:18-0500 Body mass index (BMI) [Ratio] 18.5 kg/m2 Dr. Eliza Zamora Work Phone: 4(612)313-230777 [place] [address] 04-05-2022 10:18-0500 Body temperature 96.5 [degF] Dr. Eliza Zamora Work Phone: 5(996)990-124487 [place] [address] 04-05-2022 10:18-0500 Body weight 56.[address] Eliza Zamora Work Phone: 2(962)698-001987 [place] [address] 04-05-2022 10:18-0500 Diastolic blood pressure 75 mm[Hg] Dr. Eliza Zamora Work Phone: 5(823)642-074587 [place] [address] 04-05-2022 10:18-0500 Heart rate 77 /min Dr. Eliza Zamora Work Phone: 1(480)952-084787 [place] [address] 04-05-2022 10:18-0500 Respiratory rate 18 /min Dr. Eliza Zamora Work Phone: 2(976)629-875787 [place] [address] 04-05-2022 10:18-0500 SaO2% (BldA) [Mass fraction] 91 % Dr. Eliza Zamora Work Phone: 5(328)637-294677 [place] [address] 04-05-2022 10:18-0500 Systolic blood pressure 115 mm[Hg] Dr. Eliza Zamora Work Phone: 8(842)406-776677 [place] [address] 04-03-2022 08:14-0500 Body weight 56.25 kg Ambar Julee HOBBING MACHINE OPERATOR.RELIEF WORKER Work Phone: 1(412)993-750822 [place] [address] 04-03-2022 08:14-0500 Diastolic blood pressure 70 mm[Hg] Ambar Julee HOBBING MACHINE OPERATOR.RELIEF WORKER Work Phone: [facility] 04-03-2022 08:14-0500 Heart rate 76 /min Ambar Julee HOBBING MACHINE OPERATOR.RELIEF WORKER Work Phone: [facility] 04-03-2022 08:14-0500 SaO2% (BldA) [Mass fraction] 100 % Ambar Ladd APRN.RELIEF WORKER Work Phone: [facility] 04-03-2022 08:14-0500 Systolic blood pressure 120 mm[Hg] Ambar Ladd APRN.RELIEF WORKER Work Phone: [facility] 03-29-2022 12:00-0500 Body temperature 97.1 [degF] Dr. Nehemiah Thomas Work Phone: [facility] 03-29-2022 12:00-0500 Diastolic blood pressure 63 mm[Hg] Dr. Nehemiah Thomas Work Phone: [facility] 03-29-2022 12:00-0500 Heart rate 62 /min Dr. Nehemiah Thomas Work Phone: [facility] 03-29-2022 12:00-0500 Respiratory rate 16 /min Dr. Nehemiah Thomas Work Phone: [facility] 03-29-2022 12:00-0500 SaO2% (BldA) [Mass fraction] 96 % Dr. Nehemiah Thomas Work Phone: [facility] 03-29-2022 12:00-0500 Systolic blood pressure 102 mm[Hg] Dr. Nehemiah Thomas Work Phone: [facility] 03-29-2022 10:27-0500 Body height 175.[address] Nehemiah Thomas Work Phone: [facility] 03-29-2022 10:27-0500 Body mass index (BMI) [Ratio] 18.8 kg/m2 Dr. Nehemiah Thomas Work Phone: [facility] 03-29-2022 10:27-0500 Body weight [address] Nehemiah Thomas Work Phone: [facility] 03-18-2022 10:54-0500 Body weight 56.25 kg Eliza Zamora MD Work Phone: [facility] 03-18-2022 10:54-0500 Respiratory rate 16 /min Eliza Zamora MD Work Phone: [facility] 03-16-2022 13:15-0500 Diastolic blood pressure 68 mm[Hg] Dr. Nehemiah Thomas Work Phone: [facility] 03-16-2022 13:15-0500 Heart rate 71 /min Dr. Nehemiah Thomas Work Phone: [facility] 03-16-2022 13:15-0500 Respiratory rate 12 /min Dr. Nehemiah Thomas Work Phone: [facility] 03-16-2022 13:15-0500 SaO2% (BldA) [Mass fraction] 100 % Dr. Nehemiah Thomas Work Phone: [facility] 03-16-2022 13:15-0500 Systolic blood pressure 114 mm[Hg] Dr. Nehemiah Thomas Work Phone: [facility] 03-16-2022 10:10-0500 Body height 175.[address] Nehemiah Thomas Work Phone: [facility] 03-16-2022 10:10-0500 Body mass index (BMI) [Ratio] 18.4 kg/m2 Dr. Nehemiah Thomas Work Phone: [facility] 03-16-2022 10:10-0500 Body temperature 97.7 [degF] Dr. Nehemiah Thomas Work Phone: [facility] 03-16-2022 10:10-0500 Body weight 56.[address] Nehemiah Thomas Work Phone: [facility] 03-10-2022 08:57-0500 Body height 175.3 cm Huy Rodríguez PA-C Work Phone: [facility] 03-10-2022 08:57-0500 Body temperature 98.71 [degF] Huy Rodríguez PA-C Work Phone: [facility] 03-10-2022 08:57-0500 Body weight 56.7 kg Huy Rodríguez PA-C Work Phone: [facility] 03-10-2022 08:57-0500 Diastolic blood pressure 76 mm[Hg] Huy Rodríguez PA-C Work Phone: [facility] 03-10-2022 08:57-0500 Heart rate 74 /min Huy Rodríguez PA-C Work Phone: [facility] 03-10-2022 08:57-0500 Respiratory rate 14 /min Huy Rodríguez PA-C Work Phone: [facility] 03-10-2022 08:57-0500 SaO2% (BldA) [Mass fraction] 94 % Huy Rodríguez PA-C Work Phone: [facility] 03-10-2022 08:57-0500 Systolic blood pressure 100 mm[Hg] Huy Rodríguez PA-C Work Phone: [facility] 03-01-2022 10:48-0500 Body temperature 97.9 [degF] Eliza Zamora MD Work Phone: [facility] 03-01-2022 10:48-0500 Body weight 56.02 kg Eliza Zamora MD Work Phone: [facility] 03-01-2022 10:48-0500 Diastolic blood pressure 58 mm[Hg] Eliza Zamora MD Work Phone: [facility] 03-01-2022 10:48-0500 Heart rate 70 /min Eliza Zamora MD Work Phone: [facility] 03-01-2022 10:48-0500 Respiratory rate 18 /min Eliza Zamora MD Work Phone: [facility] 03-01-2022 10:48-0500 SaO2% (BldA) [Mass fraction] 97 % Eliza Zamora MD Work Phone: [facility] 03-01-2022 10:48-0500 Systolic blood pressure 98 mm[Hg] Eliza Zamora MD Work Phone: [facility] 02-21-2022 11:08-0500 Body mass index (BMI) [Ratio] 17.8 kg/m2 Dr. Nehemiah Thomas Work Phone: [facility] 02-21-2022 11:08-0500 Body weight 58.[address] Nehemiah Thomas Work Phone: [facility] 02-21-2022 11:08-0500 Diastolic blood pressure 81 mm[Hg] Dr. Nehemiah Thomas Work Phone: [facility] 02-21-2022 11:08-0500 Heart rate 71 /min Dr. Nehemiah Thomas Work Phone: [facility] 02-21-2022 11:08-0500 SaO2% (BldA) [Mass fraction] 97 % Dr. Nehemiah Tohmas Work Phone: [facility] 02-21-2022 11:08-0500 Systolic blood pressure 121 mm[Hg] Dr. Nehemiah Thomas Work Phone: [facility] 11-29-2021 09:21-0400 Body weight 58.06 kg Paulina Older HOBBING MACHINE OPERATOR.RELIEF WORKER Work Phone: [facility] 11-29-2021 09:21-0400 Diastolic blood pressure 64 mm[Hg] Paulina Older HOBBING MACHINE OPERATOR.RELIEF WORKER Work Phone: [facility] 11-29-2021 09:21-0400 Heart rate 80 /min Paulina Older HOBBING MACHINE OPERATOR.RELIEF WORKER Work Phone: [facility] 11-29-2021 09:21-0400 Respiratory rate 14 /min Paulina Older HOBBING MACHINE OPERATOR.RELIEF WORKER Work Phone: [facility] 11-29-2021 09:21-0400 Systolic blood pressure 98 mm[Hg] Paulina Older HOBBING MACHINE OPERATOR.RELIEF WORKER Work Phone: [facility] 10-17-2021 15:12-0400 Body weight 60.42 kg Dl Wheeler MD Work Phone: [facility] 10-17-2021 15:12-0400 Diastolic blood pressure 58 mm[Hg] Dl Wheeler MD Work Phone: [facility] 10-17-2021 15:12-0400 Heart rate 78 /min Dl Wheeler MD Work Phone: [facility] 10-17-2021 15:12-0400 Respiratory rate 30 /min Dl Wheeler MD Work Phone: [facility] 10-17-2021 15:12-0400 Systolic blood pressure 122 mm[Hg] Dl Wheeler MD Work Phone: [facility] 10-03-2021 08:54-0400 Body height 180.[address] Nehemiah Thomas Work Phone: [facility] Work Phone: 10-03-2021 08:54-0400 Body mass index (BMI) [Ratio] 18.8 kg/m2 Dr. Nehemiah Thomas Work Phone: [facility] Work Phone: 10-03-2021 08:54-0400 Body temperature 94.7 [degF] Dr. Nehemiah Thomas Work Phone: [facility] Work Phone: 10-03-2021 08:54-0400 Body weight 61.[address] Nehemiah Thomas Work Phone: [facility] Work Phone: 10-03-2021 08:54-0400 Diastolic blood pressure 72 mm[Hg] Dr. Nehemiah Thomas Work Phone: [facility] Work Phone: 10-03-2021 08:54-0400 Heart rate 78 /min Dr. Nehemiah Thomas Work Phone: [facility] Work Phone: 10-03-2021 08:54-0400 Respiratory rate 18 /min Dr. Nehemiah Thomas Work Phone: [facility] Work Phone: 10-03-2021 08:54-0400 SaO2% (BldA) [Mass fraction] 95 % Dr. Nehemiah Thomas Work Phone: [facility] Work Phone: 10-03-2021 08:54-0400 Systolic blood pressure 108 mm[Hg] Dr. Nehemiah Thomas Work Phone: [facility] Work Phone: 09-01-2021 10:45-0400 Body height 174.6 cm Nehemiah Thomas MD Work Phone: [facility] 09-01-2021 10:45-0400 Body temperature 98.6 [degF] Nehemiah Thomas MD Work Phone: [facility] 09-01-2021 10:45-0400 Body weight 61.69 kg Nehemiah Thomas MD Work Phone: [facility] 09-01-2021 10:45-0400 Diastolic blood pressure 64 mm[Hg] Nehemiah Thomas MD Work Phone: [facility] 09-01-2021 10:45-0400 Heart rate 80 /min Nehemiah Thomas MD Work Phone: [facility] 09-01-2021 10:45-0400 Respiratory rate 16 /min Nehemiah Thomas MD Work Phone: [facility] 09-01-2021 10:45-0400 Systolic blood pressure 110 mm[Hg] Nehemiah Thomas MD Work Phone: [facility] 06-29-2021 11:47-0400 Body height 180.[address] Nehemiah Thomas Work Phone: [facility] [facility] Work Phone: 06-29-2021 11:47-0400 Body mass index (BMI) [Ratio] 19.9 kg/m2 Dr. Nehemiah Thomas Work Phone: [facility] Work Phone: 06-29-2021 11:47-0400 Body temperature 97.7 [degF] Dr. Nehemiah Thomas Work Phone: [facility] Work Phone: 06-29-2021 11:47-0400 Body weight 64.[address] Nehemiah Thomas Work Phone: [facility] Work Phone: 06-29-2021 11:47-0400 Diastolic blood pressure 70 mm[Hg] Dr. Nehemiah Thomas Work Phone: [facility] Work Phone: 06-29-2021 11:47-0400 Heart rate 78 /min Dr. Nehemiah Thomas Work Phone: [facility] Work Phone: 06-29-2021 11:47-0400 Respiratory rate 17 /min Dr. Nehemiah Thomas Work Phone: [facility] Work Phone: 06-29-2021 11:47-0400 SaO2% (BldA) [Mass fraction] 98 % Dr. Nehemiah Thomas Work Phone: [facility] Work Phone: 06-29-2021 11:47-0400 Systolic blood pressure 100 mm[Hg] Dr. Nehemiah Thomas Work Phone: [facility] Work Phone: 06-07-2021 10:09-0400 Body height 180.3 cm Huy Rodríguez PA-C Work Phone: [facility] 06-07-2021 10:09-0400 Body temperature 98.29 [degF] Huy Rodríguez PA-C Work Phone: [facility] 06-07-2021 10:09-0400 Body weight 65.77 kg Huy Rodríguez PA-C Work Phone: [facility] 06-07-2021 10:09-0400 Diastolic blood pressure 68 mm[Hg] Huy Rodríguez PA-C Work Phone: [facility] 06-07-2021 10:09-0400 Heart rate 94 /min Huy Rodríguez PA-C Work Phone: [facility] 06-07-2021 10:09-0400 Respiratory rate 16 /min Huy Rodríguez PA-C Work Phone: [facility] 06-07-2021 10:09-0400 SaO2% (BldA) [Mass fraction] 100 % Huy Rodríguez PA-C Work Phone: [facility] 06-07-2021 10:09-0400 Systolic blood pressure 108 mm[Hg] Huy Rodríguez PA-C Work Phone: [facility] 05-30-2021 13:54-0400 Body temperature 97.9 [degF] Nehemiah Thomas MD Work Phone: [facility] 05-30-2021 13:54-0400 Body weight 66.22 kg Nehemiah Thomas MD Work Phone: [facility] 05-30-2021 13:54-0400 Diastolic blood pressure 68 mm[Hg] Nehemiah Thomas MD Work Phone: [facility] 05-30-2021 13:54-0400 Heart rate 76 /min Nehemiah Thomas MD Work Phone: [facility] 05-30-2021 13:54-0400 Respiratory rate 24 /min Nehemiah Thomas MD Work Phone: [facility] 05-30-2021 13:54-0400 Systolic blood pressure 118 mm[Hg] Nehemiah Thomas MD Work Phone: [facility] 04-30-2021 12:09-0500 Body temperature 97.9 [degF] Dr. Nehemiah Thomas Work Phone: [facility] Work Phone: 04-30-2021 12:09-0500 Diastolic blood pressure 67 mm[Hg] Dr. Nehemiah Thomas Work Phone: [facility] Work Phone: 04-30-2021 12:09-0500 Heart rate 95 /min Dr. Nehemiah Thomas Work Phone: [facility] Work Phone: 04-30-2021 12:09-0500 Respiratory rate 16 /min Dr. Nehemiah Thomas Work Phone: [facility] Work Phone: 04-30-2021 12:09-0500 SaO2% (BldA) [Mass fraction] 95 % Dr. Nehemiah Thomas Work Phone: [facility] Work Phone: 04-30-2021 12:09-0500 Systolic blood pressure 106 mm[Hg] Dr. Nehemiah Tohmas Work Phone: [facility] Work Phone: 04-29-2021 09:25-0500 Body weight 66.[address] Nehemiah Thomas Work Phone: [facility] Work Phone: 04-28-2021 18:10-0500 Body mass index (BMI) [Ratio] 20 kg/m2 Dr. Nehemiah Thomas Work Phone: [facility] Work Phone: Encounters Encounter Date Encounter Type Care Provider Facility Start: 10-07-2024 End: 10-07-2024 ambulatory Bob Pascual PT Work Phone: [facility] Comment on above: Bilateral chronic kn ee pain (Primary Dx) Start: 10-01-2024 End: 10-01-2024 ambulatory ELIZA D TALAMPAS Facility:[facility] Start: 09-12-2024 End: 09-12-2024 Patient encounter procedure Claudette Branch Work Phone: Podiatry Comment on above: Open wound of toe, i nitial encounter (Primary Dx) Start: 09-12-2024 End: 09-12-2024 ambulatory CLAUDETTE BRANCH Facility:[facility] Start: 09-02-2024 End: 09-02-2024 ambulatory ELIZA D BLASAMPVALDO Facility:[facility] Start: 08-26-2024 End: 08-26-2024 Patient encounter procedure Claudette Branch Work Phone: Podiatry Comment on above: Open wound of toe, i nitial encounter (Primary Dx) Start: 08-26-2024 End: 08-26-2024 [facility] Start: 08-18-2024 End: 08-18-2024 ambulatory [facility] Facility:[facility] Start: 08-18-2024 End: 08-18-2024 Patient encounter procedure Ambar Ladd APRN.CNP Work Phone: [facility] [place] Comment on above: Pressure injury of b uttock, stage 1, unspecified laterality (Primary Dx); Ingrown toenail; Sleep disturbance; Type 2 diabetes mellitus with polyneuropathy (HCC); Primary hypertension Primary hypertension (Primary Dx); Cardiomyopathy, nonischemic (HCC) Start: 08-18-2024 End: 08-18-2024 ambulatory AMBAR LADD Facility:[facility] Start: 08-14-2024 End: 08-14-2024 Patient encounter procedure Claudette Branch Work Phone: Podiatry Comment on above: Ingrowing toenail of right foot (Primary Dx) Start: 08-14-2024 End: 08-14-2024 ambulatory CLAUDETTEMIKEY DAUGHERTYGORGE Facility:[facility] Start: 08-11-2024 End: 08-12-2024 Telephone encounter Claudette Testbenito Work Phone: Podiatry Start: 08-07-2024 End: 08-07-2024 Telephone encounter Yaz Ramírez Start: 08-06-2024 End: 08-06-2024 Office outpatient visit 25 minutes Jasmin West APRN.RELIEF WORKER Work Phone: [facility] [place] Comment on above: Pressure injury of tara steele, stage 1, unspecified laterality (Primary Dx); Ingrown toenail Start: 08-06-2024 End: 08-06-2024 ambulatory [facility] Facility:[facility] Start: 07-30-2024 End: 07-30-2024 Patient encounter procedure Diomedes Bey DO -[facility] Work Phone: Start: 07-30-2024 End: 07-30-[address] Eliza Zamora MD Work Phone: [facility] Work Phone: Start: 07-29-2024 End: 08-13-2024 Follow-up encounter Claudette Branch Work Phone: Podiatry Start: 07-29-2024 End: 07-29-[address] Tom Sparks MD -[facility] Work Phone: Start: 07-29-2024 End: 07-29-[address] Eliza Zamora MD Work Phone: [facility] Work Phone: Start: 07-25-2024 End: 07-25-2024 Patient encounter procedure Claudette Branch Work Phone: Podiatry Comment on above: Onychomycosis (Prima ry Dx); Pain in toe of left foot; Pain in toe of right foot; Type 2 diabetes mellitus with polyneuropathy (HCC); Ingrowing toenail of left foot; Ingrowing toenail of right foot Start: 07-25-2024 End: 07-25-2024 ambulatory CLAUDETTE BRANCH Facility:[facility] Start: 07-23-2024 End: 07-23-2024 Refill Eliza Zamora MD Work Phone: [facility] [place] Comment on above: Refill Request Start: 05-26-2024 End: 07-26-2024 Follow-up encounter Ambar Ladd APRN.CNP Work Phone: [facility] [place] Start: 05-21-2024 End: 05-21-2024 [facility] Start: 05-21-2024 End: 05-21-2024 [facility] Start: 05-21-2024 End: 05-21-2024 Patient encounter procedure Ambar Ladd APRN.RELIEF WORKER Work Phone: [facility] [place] Comment on above: Other fatigue (Prima ry Dx); Encounter for therapeutic drug monitoring; Type 2 diabetes mellitus with polyneuropathy (HCC); Vitamin D deficiency; Screening for prostate cancer Start: 05-14-2024 End: 05-14-2024 Refill Ambar Ladd APRN.RELIEF WORKER Work Phone: [facility] [place] Comment on above: Refill Request Start: 04-22-2024 End: 04-22-2024 Patient encounter procedure Diomedes Bey [facility] Work Phone: Start: 04-22-2024 End: 04-22-2024 ambulatory Diomedes Bey [place] [place]: 04-07-2024 End: 04-07-2024 ambulatory CLAUDETTE TRIPATHIGORGE Facility:[facility] Start: 04-07-2024 End: 04-07-2024 Patient encounter procedure Claudette Branch Work Phone: Podiatry Comment on above: Onychomycosis (Prima ry Dx); Pain in toe of left foot; Pain in toe of right foot; Type 2 diabetes mellitus with polyneuropathy (HCC); Hammer toe of right foot Start: 03-03-2024 End: 03-03-2024 Office outpatient visit 15 minutes Chele Mixon MD Work Phone: [facility] Comment on above: URI, acute (Primary Dx); Exposure to confirmed case of COVID-19 Start: 03-03-2024 End: 03-04-2024 ambulatory Tom Sparks Facility:[facility] Start: 03-03-2024 End: 03-03-2024 Patient encounter procedure Dl Wheeelr MD Work Phone: Cardiology Comment on above: Chronic diastolic co ngestive heart failure (HCC) (Primary Dx) Start: 02-25-2024 End: 02-25-2024 Office outpatient visit 15 minutes Eliaz Zamora MD Work Phone: [facility] [place] Comment on above: Viral upper respirat ory tract infection (Primary Dx); Acute cough; Nasal congestion; Rhinitis, unspecified type; Bilateral impacted cerumen Start: 02-25-2024 End: 02-25-2024 ambulatory ELIZA ZAMORA Facility:[facility] Start: 01-28-2024 End: 01-28-2024 ambulatory Tom Zeinabviridinaa [place] [place] Start: 01-22-2024 End: 01-22-2024 Refill Eliza Zamora MD Work Phone: [facility] [place] Comment on above: Refill Request Start: 01-09-2024 End: 01-09-2024 ambulatory [facility] [place] Work Phone: [facility] [place] Start: 01-09-2024 End: 01-09-2024 Patient encounter procedure [facility] [place] Work Phone: [facility] [place] Start: 01-08-2024 End: 01-08-2024 ambulatory Eliza Zamora Facility:[facility] Start: 01-03-2024 End: 01-03-2024 ambulatory CLAUDETTE BRANCH Facility:[facility] Start: 01-03-2024 End: 01-03-2024 Patient encounter procedure Claudette Branch Work Phone: Podiatry Comment on above: Onychomycosis (Prima ry Dx); Pain in toe of left foot; Pain in toe of right foot; Type 2 diabetes mellitus with polyneuropathy (HCC) Start: 12-07-2023 End: 12-07-2023 ambulatory Diomedes Bey Facility:[facility] Start: 11-13-2023 End: 11-14-2023 ambulatory Eliza Zmaora Facility:[facility] Start: 11-13-2023 End: 11-13-2023 Office outpatient visit 25 minutes Eliza Zamora MD Work Phone: [facility] [place] Comment on above: Type 2 diabetes ori itus with polyneuropathy (HCC) (Primary Dx); Focal epilepsy (HCC); Mixed hyperlipidemia; Gastroparesis Start: 11-10-2023 End: 11-10-2023 ambulatory ELIZA ZAMORA Facility:[facility] Start: 10-16-2023 End: 10-16-2023 ambulatory Eliza Blanca Zamora Facility:[facility] Start: 10-01-2023 Telephone encounter Dl Wheeler MD Work Phone: Cardiology Comment on above: Results Start: 10-01-2023 End: 10-01-2023 Patient encounter procedure Claudette Branch Work Phone: Podiatry Comment on above: Onychomycosis (Prima ry Dx); Pain in toe of left foot; Pain in toe of right foot; Hammer toe of left foot; Hammer toe of right foot; Type 2 diabetes mellitus with polyneuropathy (HCC) Start: 09-15-2023 Refill Eliza jaramillo MD Work Phone: [facility] [place] Comment on above: Refill Request Start: 09-14-2023 ambulatory Eliza jaramillo MD Work Phone: [facility] [place] Comment on above: Jasmyn visit er on 08/26 Start: 08-20-2023 End: 08-20-2023 Patient encounter procedure Dl Wheeler MD Work Phone: Cardiology Comment on above: Chronic diastolic co ngestive heart failure (HCC) (Primary Dx); Primary hypertension Start: 07-30-2023 Refill Eliza jaramillo MD Work Phone: [facility] [place] Comment on above: Refill Request Start: 07-16-2023 Refill Suki lara PA-C Work Phone: Neurology Comment on above: Refill Request Start: 06-25-2023 ambulatory Claudette jara Work Phone: Podiatry Comment on above: Face lesion Start: 06-21-2023 End: 06-21-2023 Patient encounter procedure Claudette Branch Work Phone: Podiatry Comment on above: Onychomycosis (Prima ry Dx); Pain in toe of left foot; Pain in toe of right foot; Hammer toe of left foot; Hammer toe of right foot; Callus of foot; Type 2 diabetes mellitus with polyneuropathy (HCC); Nevus Start: 06-18-2023 Telephone encounter Eliza bradley MD Work Phone: [facility] [place] Comment on above: Refill Request Start: 04-30-2023 End: 04-30-2023 Office outpatient visit 25 minutes Eliza Zamora MD Work Phone: [facility] [place] Comment on above: Type 2 diabetes ori itus with polyneuropathy (HCC) (Primary Dx); Underweight; History of hypertension; Vitamin D deficiency; Cardiomyopathy, nonischemic (HCC); Encounter for long-term current use of medication Start: 04-11-2023 End: 04-11-[address] Eliza Zamora Work Phone: [facility] Work Phone: Start: 04-11-2023 End: 04-11-[address] Eliza Zamora Work Phone: [facility] Work Phone: Start: 04-02-2023 End: 04-02-[address] Eliza Zamora Work Phone: [facility] Work Phone: Start: 04-02-2023 End: 04-02-[address] Eliza Zamora Work Phone: [facility] Work Phone: Start: 02-05-2023 End: 02-05-2023 Patient encounter procedure Dl Wheeler MD Work Phone: Cardiology Comment on above: Cardiomyopathy, jesika schemic (HCC) [I42.8] (Primary Dx); Orthostatic hypotension [I95.1] Start: 02-02-2023 Refill Eliza jaramillo MD Work Phone: [facility] [place] Comment on above: Refill Request Start: 01-26-2023 Telephone encounter Mal Carpio MD Work Phone: Neurology Comment on above: Medication Problem Start: 01-09-2023 Telephone encounter Ambar Iqbal gurjit HOBBING MACHINE OPERATOR.RELIEF WORKER Work Phone: [facility] [place] Comment on above: Refill Request Start: 01-01-2023 ambulatory Jean Carlos flores RN Work Phone: [facility] Start: 01-01-2023 Follow-up encounter Jean Carlos iniguez RN Work Phone: Supervisor [employer] Management Comment on above: Transition Of Care ( TCM follow up [facility] Discharge 12/06/22) Start: 12-12-2022 Telephone encounter Mal Carpio MD Work Phone: Neurology Comment on above: Appointment Patient Question Start: 12-08-2022 Telephone encounter Eliza bradley MD Work Phone: N[facility] Comment on above: Follow Up (All Clear ) Start: 11-24-2022 Chart abstracting Mal mata MD Work Phone: Neurology Start: 11-24-2022 End: 11-24-2022 Patient encounter procedure Mal Carpio MD Work Phone: Neurology Comment on above: Recurrent syncope (P rimary Dx); History of seizure disorder; History of traumatic brain injury; Daytime sleepiness Start: 11-16-2022 Telephone encounter Eliza bradley MD Work Phone: [facility] [place] Comment on above: Forms for Diabetic S hoes Start: 10-20-2022 End: 10-20-2022 Office outpatient visit 25 minutes Eliza Zamora MD Work Phone: [facility] [place] Comment on above: Type 2 diabetes ori itus with polyneuropathy (HCC) (Primary Dx); Underweight; Primary hypertension; Daytime sleepiness; Other hyperlipidemia; High serum vitamin D; Vitamin D deficiency; Encounter for long-term current use of medication Start: 10-09-2022 Telephone encounter Dl Wheeler MD Work Phone: Cardiology Comment on above: Orders Start: 10-02-2022 Telephone encounter Dl Wheeler MD Work Phone: Cardiology Comment on above: Orders Start: 09-19-2022 End: 09-19-[address] Eliza Zamora Work Phone: [facility] Work Phone: Start: 09-19-2022 End: 09-19-[address] Eliza Zamora Work Phone: [facility]-P[facility] Services/Neurology Work Phone: Start: 09-18-2022 End: 09-18-[address] Eliza Zamora Work Phone: [facility] Work Phone: Start: 09-18-2022 End: 09-18-[address] Eliza Zamora Work Phone: [facility]-Sleep Lab Work Phone: Start: 09-14-2022 Telephone encounter Mal Carpio MD Work Phone: Neurology Comment on above: Orders; Insurance Au thorization Start: 09-07-2022 Telephone encounter Dl Wheeler MD Work Phone: Cardiology Comment on above: Medication Problem Start: 09-06-2022 Telephone encounter Mal Carpio MD Work Phone: Neurology Comment on above: Coding Diagnosis Que stion Start: 09-04-2022 End: 09-04-2022 Patient encounter procedure Dl Wheeler MD Work Phone: Cardiology Comment on above: Orthostatic hypotens ion [I95.1] (Primary Dx); Cardiomyopathy, nonischemic (HCC) Start: 08-30-2022 Refill Eliza jaramillo MD Work Phone: [facility] Comment on above: Refill Request Start: 08-09-2022 End: 08-09-2022 Office outpatient visit 40 minutes Eliza Zamora MD Work Phone: [facility] [place] Comment on above: Type 2 diabetes ori itus with polyneuropathy (HCC) (Primary Dx); Underweight; Primary hypertension; Daytime sleepiness; Polyuria; Late effects of cerebrovascular disease; Other hyperlipidemia; Vasovagal reaction; Chronic fatigue; Encounter for long-term current use of medication; Weight loss, unintentional Start: 08-01-2022 Refill Eliza jaramillo MD Work Phone: [facility] [place] Comment on above: Refill Request Start: 07-25-2022 End: 07-25-[address] Eliza Zamora Work Phone: [facility] Work Phone: Start: 06-28-2022 End: 06-28-[address] Eliza Zamora Work Phone: [facility] Work Phone: Start: 06-28-2022 End: 06-28-[address] Eliza Zamora Work Phone: [facility]-Laboratory Start: 06-26-2022 End: 06-26-2022 Emergency department patient visit Dr. Eliza Zamora Work Phone: [facility]-Emergency Department Start: 06-20-2022 End: 06-20-[address] Eliza Zamora Work Phone: [facility] Start: 05-01-2022 End: 05-01-2022 Patient encounter procedure Ambar Ladd APRN.CNP Work Phone: [facility] [place] Comment on above: Weight loss, uninten tional (Primary Dx); Primary hypertension; Type 2 diabetes mellitus with polyneuropathy (HCC); Delay in development Start: 04-12-2022 End: 04-12-[address] Eliza Zamora Work Phone: [facility] Start: 04-05-2022 End: 04-05-[address] Eliza Zamora Work Phone: [facility]ocrinology Start: 04-03-2022 End: 04-03-2022 Patient encounter procedure Ambar Ladd APRN.RELIEF WORKER Work Phone: [facility] [place] Comment on above: Weight loss, uninten tional (Primary Dx); Primary hypertension; Type 2 diabetes mellitus with polyneuropathy (HCC) Start: 03-31-2022 Telephone encounter lD Wheeler MD Work Phone: Cardiology Comment on above: Patient Update Start: 03-29-2022 Non-patient / Non-visit Dr. Nancy Thomas Work Phone: [facility] Start: 03-29-2022 End: 03-29-2022 Admission to same day surgery center Dr. Nehemiah Thomas Work Phone: [facility]-Endoscopy Start: 03-29-2022 End: 03-29-[address] Nehemiah Thomas Work Phone: [facility] Work Phone: Start: 03-28-2022 Telephone encounter Dl Wheeler MD Work Phone: Cardiology Comment on above: pre admission testin g Start: 03-18-2022 End: 03-18-2022 Office outpatient visit 40 minutes Eliza Zamora MD Work Phone: [facility] [place] Comment on above: Orthostatic hypotens ion (Primary Dx); Type 2 diabetes mellitus with polyneuropathy (HCC); Weight loss, unintentional; Delay in development; Chronic fatigue; Dilated cardiomyopathy (HCC); Need for vaccination Start: 03-17-2022 Orders Only Helena avelar APRN.RELIEF WORKER Work Phone: [facility] Cardiology [place] Comment on above: Patient Update Start: 03-16-2022 End: 03-16-2022 Emergency department patient visit Dr. Nehemiah Thomas Work Phone: [facility]-Emergency Department Start: 03-10-2022 End: 03-10-2022 Patient encounter procedure Huy Rodríguez PA-C Work Phone: Urology Comment on above: Urinary incontinence , unspecified type (Primary Dx); BPH with urinary obstruction Start: 03-09-2022 ambulatory Eliza jaramillo MD Work Phone: [facility] [place] Comment on above: Low BP and carvedilo l dose Start: 03-09-2022 E-mail encounter fro m caregiver Eliza Zamora MD Work Phone: [facility] [place] Start: 03-09-2022 Telephone encounter Eliza bradley MD Work Phone: [facility] [place] Comment on above: Consult Start: 03-06-2022 End: 03-06-[address] Nehemiah Thomas Work Phone: [facility] Start: 03-01-2022 ambulatory Eliza jaramillo MD Work Phone: [facility] [place] Comment on above: clint Santana pneumonia jason t Start: 03-01-2022 End: 03-01-2022 Office outpatient visit 25 minutes Eliza Zamora MD Work Phone: [facility] [place] Comment on above: Weight loss, uninten tional (Primary Dx); Dilated cardiomyopathy (HCC); Type 2 diabetes mellitus with polyneuropathy (HCC); Encounter for immunization; Delay in development Start: 02-21-2022 End: 02-21-[address] Nehemiah Thomas Work Phone: [facility] Start: 02-20-2022 ambulatory Dl Wheeler MD Work Phone: Cardiology Comment on above: clint Santana blood pressur e Start: 02-13-2022 End: 02-13-2022 Patient encounter procedure Echocardiogram Wstr Work Phone: Cardiology Comment on above: Dilated cardiomyopat hy (HCC) Start: 02-12-2022 ambulatory Eliza jaramillo MD Work Phone: [facility] [place] Comment on above: clint Santana blood pressur e Start: 01-30-2022 Telephone encounter Eliza bradley MD Work Phone: [facility] [place] Comment on above: Appointment (With Dr Sotero) Start: 01-23-2022 Non-patient / Non-visit Dr. Nancy Thomas Work Phone: [facility] Internal Medicine Start: 12-17-2021 ambulatory Dl Wheeler MD Work Phone: Cardiology Comment on above: clint Santana med. Start: 12-02-2021 End: 12-02-[address] Nehemiah Thomas Work Phone: [facility], [facility] Start: 11-29-2021 End: 11-29-2021 Patient encounter procedure Paulina West APRN.RELIEF WORKER Work Phone: [facility] [place] Comment on above: Weight loss, abnorma l (Primary Dx); Hypotension, unspecified hypotension type; Type 2 diabetes mellitus with polyneuropathy (HCC); Dysphagia, unspecified type; Primary hypertension; Cardiomyopathy, unspecified type (HCC); Encounter for immunization Start: 11-24-2021 End: 11-24-[address] Nehemiah Thomas Work Phone: [facility] Work Phone: Start: 11-24-2021 End: 11-24-[address] Nehemiah Thomas Work Phone: [facility]-Laboratory Start: 11-24-2021 End: 11-24-[address] Nehemiah Thomas Work Phone: [facility]astroenter[facility] Start: 10-17-2021 End: 10-17-2021 Patient encounter procedure Dl Wheeler MD Work Phone: Cardiology Comment on above: Primary hypertension (Primary Dx); Screening for ischemic heart disease Start: 10-03-2021 End: 10-03-[address] Nehemiah Thomas Work Phone: [facility] Endocrinology Start: 09-22-2021 ambulatory Nehemiah brannon MD Work Phone: [facility] [place] Comment on above: Jasmyn,s b12 Start: 09-01-2021 End: 09-01-2021 Patient encounter procedure Nehemiah Thomas MD Work Phone: [facility] [place] Comment on above: Weight loss, abnorma l (Primary Dx); Dysphagia, unspecified type; Proteinuria, unspecified type Start: 08-30-2021 Telephone encounter Nehemiah bolden MD Work Phone: [facility] [place] Comment on above: Lab Orders Start: 08-10-2021 Refill Nehemiah brannon MD Work Phone: [facility] [place] Comment on above: Refill Request Start: 08-03-2021 End: 08-03-2021 ambulatory Griselda Varela PT Work Phone: [facility] Comment on above: Gait abnormality (Pr imary Dx) Start: 08-02-2021 Refill Nehemiah brannon MD Work Phone: [facility] [place] Comment on above: Refill Request Start: 08-01-2021 Telephone encounter Huy ROWANC Work Phone: Urology Comment on above: Results Start: 08-01-2021 End: 08-01-2021 ambulatory Griselda Varela PT Work Phone: [facility] Comment on above: Gait abnormality (Pr imary Dx) Start: 07-27-2021 End: 07-27-2021 ambulatory Griselda Varela PT Work Phone: [facility] Comment on above: Gait abnormality (Pr imary Dx) Start: 07-24-2021 ambulatory Huy ROWANC Work Phone: Urology Comment on above: Bladder Issues Start: 07-20-2021 End: 07-20-2021 ambulatory Griselda Varela PT Work Phone: [facility] Comment on above: Gait abnormality (Pr imary Dx) Start: 07-18-2021 End: 07-18-2021 ambulatory Griselda Varela PT Work Phone: [facility] Comment on above: Gait abnormality (Pr imary Dx) Start: 07-14-2021 End: 07-14-2021 ambulatory Griselda Varela PT Work Phone: [facility] Comment on above: Gait abnormality (Pr imary Dx) Start: 07-12-2021 End: 07-12-2021 ambulatory Griselda Varela PT Work Phone: [facility] Comment on above: Gait abnormality (Pr imary Dx) Start: 07-04-2021 End: 07-04-2021 ambulatory Griselda Varela PT Work Phone: [facility] Comment on above: Gait abnormality (Pr imary Dx); Abnormality of gait Start: 06-29-2021 End: 06-29-[address] Nehemiah Thomas Work Phone: [facility] Start: 06-29-2021 End: 06-29-[address] Nehemiah Thomas Work Phone: [facility] Start: 06-18-2021 Refill Nehemiah brannon MD Work Phone: [facility] [place] Comment on above: Refill Request Start: 06-13-2021 ambulatory Nehemiah brannon MD Work Phone: [facility] [place] Comment on above: Jasmyn, Diabetic docto r Blood Glucose v Start: 06-08-2021 ambulatory Huy MARINELLI-C Work Phone: Urology Comment on above: Urine test Urine re check Medication Change Start: 06-07-2021 ambulatory Dl Wheeler MD Work Phone: Cardiology Comment on above: Antibiotics Start: 06-07-2021 End: 06-07-2021 Patient encounter procedure Huy Rodríguez PA-C Work Phone: Urology Comment on above: Urinary incontinence , unspecified type (Primary Dx); Acute cystitis with hematuria Start: 05-30-2021 End: 05-30-2021 Patient encounter procedure Nehemiah Thomas MD Work Phone: Internal [facility] Comment on above: Overactive bladder ( Primary Dx); Urinary incontinence, unspecified type; Urinary frequency; Type 2 diabetes mellitus with polyneuropathy (HCC); Gait abnormality; Other hyperlipidemia; Primary hypertension Start: 05-25-2021 Telephone encounter Nehemiah bolden MD Work Phone: Internal [facility] Comment on above: Orders Start: 04-30-2021 Non-patient / Non-visit Dr. Nancy Thomas Work Phone: [facility] Start: 04-29-2021 Non-patient / Non-visit Dr. Nancy Thomas Work Phone: [facility] Start: 04-28-2021 Non-patient / Non-visit Dr. Nancy Thomas Work Phone: [facility] Start: 04-28-2021 End: 04-30-2021 Evaluation and management of inpatient Dr. [facility]hemiah [facility] Start: 04-18-2021 ambulatory Nehemiah brannon MD Work Phone: Internal [facility] Comment on above: Referal for Dr Abena pedor Start: 11-29-2020 End: 11-29-2020 Subsequent hospital visit by physician Lucía [facility] Work Phone: Radiology Comment on above: Gait abnormality [R2 6.9] Start: 11-04-2019 ambulatory Nehemiah brannon MD Work Phone: [facility] [place] Comment on above: RE: Test Result Ques tijerry Start: 10-11-2017 Ambulatory [facility] Facility :[facility] Start: 03-23-2017 End: 03-23-2017 Ambulatory [facility] Facility:[facility] Procedures Date Procedure Procedure Detail Performing Clinician Start: 04-11-2023 Computed tomography of abdomen and pelvis with contrast Dr. Eliza Zamora Work Phone: Start: 06-26-2022 Plain chest X-ray Dr. Angeles Zamora Work Phone: Start: 06-26-2022 CT of head without contrast Dr. Eliza Zamora Work Phone: Start: 03-29-[address] Nehemiah Thomas Work Phone: Start: 03-16-2022 Plain chest X-ray Dr. Iraida Thomas Work Phone: Start: 03-10-2022 Urnls dip stick/tabl et rgnt auto w/o microscopy Huy Rodríguez PA-C Work Phone: Start: 03-06-2022 Computed tomography of abdomen and pelvis with contrast Dr. Nehemiah Thomas Work Phone: Start: 02-13-2022 Echo tthrc r-t 2d w/wom-mode compl spec&colr d Eliza Zamora MD Work Phone: Start: 12-02-2021 US scan of gallbladder Dr. 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 Iraida Thomas Work Phone: Start: 04-28-2021 Bacteria identified in Blood by Culture Dr. Nehemiah Thomas Work Phone: Start: 04-28-[address] Kay Thomas Work Phone: Start: 11-29-2020 Radiologic exam knee complete 4/more views Nehemiah Thomas MD Work Phone: Start: 11-23-2020 Adult depression scr eening assessment Nehemiah Thomas MD Work Phone: Clostridium difficil e detection Dr. Nehemiah Thomas Work Phone: Enteric Bacteriology Dr. Krystian Thomas Work Phone: Lactoferrin measurement Dr. Nehemiah Thomas Work Phone: Plan of Treatment Date Care Activity Detail Author Start: 05-21-2029 Prostate specific antigen measurement Prostate Cancer Screening Discussion [facility] Start: 10-01-2025 Annual PCP Team Chronic Disease Visit Annual PCP Team Chronic Disease Visit [facility] Start: 08-18-2025 Annual PCP Team Chronic Disease Visit Annual PCP Team Chronic Disease Visit [facility] Start: 08-06-2025 Annual PCP Team Chronic Disease Visit Annual PCP Team Chronic Disease Visit [facility] Start: 05-27-2025 Hepatitis B screening Urine Albumin:Creatinine Ratio [facility] Start: 05-21-2025 Annual PCP Team Chronic Disease Visit Annual PCP Team Chronic Disease Visit [facility] Start: 04-21-2025 Glaucoma screening Dilated Retinal Exam [facility] Start: 03-16-2025 End: 03-16-2025 Patient encounter procedure 03/16/2025 10:00 AM EST Office Visit Cardiology [address] [place] [address] Dl Wheeler MD [address], [address] [place] [address] 6 month follow up Cardiology Comment on above: 6 month follow up Start: 03-03-2025 BP Controlled (<130/80) BP Controlled (<130/80) [facility] Start: 02-24-2025 Annual PCP Team Chronic Disease Visit Annual PCP Team Chronic Disease Visit [facility] Start: 02-24-2025 BP Controlled (<130/80) BP Controlled (<130/80) [facility] Start: 11-21-2024 Hemoglobin A1c measurement HbA1C [facility] Start: 11-21-2024 End: 11-21-2024 Patient encounter procedure 11/21/2024 1:40 PM EDT Office Visit [facility] [place] [address] [place] [address] Eliza Zamora MD [address] [place] [address] 6 month follow up [facility] [place] Comment on above: 6 month follow up Start: 11-17-2024 End: 11-17-2024 Patient encounter procedure 11/17/2024 1:30 PM EDT Office Visit Orthopaedics [address] [place] [address] Ruperto Encinas MD [address] [place] [address] : Chronic pain of both knees [M25.561, M25.562, G89.29]; Leg weakness, bilateral [R29.898]; History of knee problem [Z87.39] Orthopaedics Comment on above: : Chronic pain of both knees [M25.561, M 25.562, G89.29]; Leg weakness, bilateral [R29.898]; History of knee problem [Z87.39] Start: 11-12-2024 Annual PCP Team Chronic Disease Visit Annual PCP Team Chronic Disease Visit [facility] Start: 11-12-2024 BP Controlled (<130/80) BP Controlled (<130/80) [facility] Start: 11-09-2024 Hepatitis B surface antibody level LDL Cholesterol [facility] Start: 11-04-2024 End: 11-04-2024 ambulatory 11/04/2024 2:15 PM EDT OT/PT/Speech Visit [facility] [address] [place] [address] Bob Pascual, PT [address] [place], [place] [id number] M25.561,M25.562,G89.29 (ICD-10-CM) - Chronic pain of both knees [facility] Comment on above: M25.561,M25.562,G89.29 (ICD-10-CM) - Chr onic pain of both knees Start: 10-30-2024 End: 10-30-2024 Patient encounter procedure 10/30/2024 9:00 AM EDT Office Visit Podiatry [address] [place] [address] Claudette Branch [address] [place] [address] 3 month follow up nail care Podiatry Comment on above: 3 month follow up nail care Start: 10-27-2024 Influenza vaccination Influenza Vaccine (#1) [facility] Start: 10-23-2024 End: 10-23-2024 ambulatory 10/23/2024 8:30 AM EDT OT/PT/Speech Visit [facility] [address] [place] [address] Bob Pascual, PT [address] [place], [place] [id number] M25.561,M25.562,G89.29 (ICD-10-CM) - Chronic pain of both knees [facility] Comment on above: M25.561,M25.562,G89.29 (ICD-10-CM) - Chr onic pain of both knees Start: 09-30-2024 Diabetic foot examination Diabetic Foot Exam [facility] Start: 09-12-2024 End: 09-12-2024 Patient encounter procedure 09/12/2024 1:00 PM EDT Office Visit Podiatry [address] [place] [address] Claudette Branch [address] [place] [address] 4 week post total nail avulsion Podiatry Comment on above: 4 week post total nail avulsion Start: 09-02-2024 End: 09-02-2024 Patient encounter procedure 09/02/2024 9:40 AM EDT Office Visit Cardiology [address] [place] [address] Primary hypertension [I10] Cardiology Comment on above: Primary hypertension [I10] Start: 09-01-2024 End: 08-18-2025 Echocardiography ECHO Cardiology Routine Primary hypertension Expected: 09/01/2024, Expires: 08/18/2025 [facility] Work Phone: Comment on above: Expected: 09/01/2024, Expires: Start: 08-26-2024 End: 08-26-2024 Patient encounter procedure 08/26/2024 10:45 AM EDT Office Visit Podiatry [address] [place] [address] Claudette Branch [address] [place] [address] Follow up R TOE Podiatry Comment on above: Follow up R TOE Start: 08-18-2024 End: 08-18-2024 Patient encounter procedure Cardiology Comment on above: 6 month follow up 2 week follow up Start: 08-14-2024 End: 08-14-2024 Patient encounter procedure 08/14/2024 11:15 AM EDT Office Visit Podiatry [address] [place] [address] Claudette Branch [address] [place] [address] procedure Podiatry Comment on above: procedure Start: 07-25-2024 End: 07-25-2024 Patient encounter procedure 07/25/2024 3:00 PM EDT Office Visit Podiatry [address] [place] [address] Claudette Branch [address] [place] [address] 3 month follow up nail care Podiatry Comment on above: 3 month follow up nail care Start: 07-10-2024 End: 07-10-2024 Patient encounter procedure Podiatry Comment on above: 3 month follow up nail care Start: 06-14-2024 End: 06-14-2024 Patient encounter procedure 06/14/2024 9:00 AM EDT Office Visit [facility] [place] [address] [place] [address] Eliza Zamora MD [address] [place] [address] 6 month follow up [facility] [place] Comment on above: 6 month follow up Start: 05-21-2024 End: 08-20-2024 Bacteria identified in Urine by Culture BACTERIAL CULTURE, URINE Microbiology Routine Other fatigue Expected: 05/21/2024, Expires: 08/20/2024 [facility] Comment on above: Expected: 05/21/2024, Expires: Start: 05-21-2024 End: 08-20-2024 Comprehensive metabolic 2000 panel - Serum or Plasma [facility] Work Phone: Comment on above: Expected: 05/21/2024, Expires: Start: 05-21-2024 End: 08-20-2024 Microalbumin/Creatinine [Mass Ratio] in Urine ALBUMIN/CREATININE RATIO, URINE Lab Routine Type 2 diabetes mellitus with polyneuropathy (HCC) Expected: 05/21/2024, Expires: 08/20/2024 [facility] Comment on above: Expected: 05/21/2024, Expires: Start: 05-21-2024 End: 08-20-2024 Urinalysis complete panel - Urine URINALYSIS, WITH MICROSCOPIC Lab Routine Other fatigue Expected: 05/21/2024, Expires: 08/20/2024 [facility] Comment on above: Expected: 05/21/2024, Expires: Start: 05-21-2024 End: 05-21-2024 Patient encounter procedure 05/21/2024 8:20 AM EDT Office Visit [facility] [place] [address] [facility] [place] [address] Ambar Ladd APRN.RELIEF WORKER [address] [place] [address] 6 month follow up [facility] [place] Comment on above: 6 month follow up Start: 05-12-2024 End: 05-12-2024 Patient encounter procedure 05/12/2024 9:00 AM EDT Office Visit [facility] [place] [address] [facility] [place] [address] Eliza Zamora MD [address] [place] [address] 6 month follow up [facility] [place] Comment on above: 6 month follow up Start: 05-09-2024 Hemoglobin A1c measurement HbA1C [facility] Start: 04-29-2024 Annual PCP Team Chronic Disease Visit Annual PCP Team Chronic Disease Visit [facility] Start: 04-29-2024 BP Controlled (<130/80) BP Controlled (<130/80) [facility] Start: 04-09-2024 Glaucoma screening Dilated Retinal Exam [facility] Start: 04-07-2024 End: 04-07-2024 Patient encounter procedure Podiatry Comment on above: 3 month follow up nail care Start: 04-04-2024 Hepatitis B surface antibody level LDL Cholesterol [facility] Start: 03-03-2024 End: 03-03-2024 Patient encounter procedure 03/03/2024 2:20 PM EST Office Visit Cardiology [address] [place] [phone] Dl Wheeler MD [address] [place] [address] 6 month follow up Cardiology Comment on above: 6 month follow up Start: 02-27-2024 Advance Directive Discussion Advance Directive Discussion [facility] Start: 02-27-2024 Medicare Advantage Annual Wellness Visit Medicare Advantage Annual Wellness Visit [facility] Start: 02-06-2024 BP Controlled (<130/80) BP Controlled (<130/80) [facility] Start: 01-13-2024 BP Controlled (<130/80) BP Controlled (<130/80) [facility] Start: 01-03-2024 End: 01-03-2024 Patient encounter procedure 01/03/2024 9:00 AM EST Office Visit Podiatry [address] [place] [address] Claudette Branch [address] [place] [address] 3 month follow up nail care Podiatry Comment on above: 3 month follow up nail care Start: 01-02-2024 Annual PCP Team Chronic Disease Visit Annual PCP Team Chronic Disease Visit [facility] Start: 01-02-2024 BP Controlled (<130/80) BP Controlled (<130/80) [facility] Start: 01-02-2024 Covid-19 Vaccine ( season) Covid-19 Vaccine () [facility] Comment on above: Postponed from 10/27/2022 (Declined at t his time) Start: 11-25-2023 BP Controlled (<130/80) BP Controlled (<130/80) [facility] Start: 11-13-2023 End: 11-13-2023 Patient encounter procedure 11/13/2023 2:00 PM EDT Office Visit [facility] [place] [address] [place] [address] Eliza Zamora MD [address] [place] [address] 6 month follow up [facility] [place] Comment on above: 6 month follow up Start: 10-31-2023 End: 01-30-2024 25-hydroxyvitamin D3 [Mass/volume] in Serum or Plasma VITAMIN D 25 HYDROXY Lab Routine Vitamin D deficiency Encounter for long-term current use of medication Expected: 10/31/2023 (Approximate), Expires: 01/30/2024 [facility] Work Phone: Comment on above: Expected: 10/31/2023 (Approximate), Expi res: 01/30/2024 Start: 10-31-2023 End: 01-30-2024 CBC panel - Blood by Automated count CBC Lab Routine Encounter for long-term current use of medication Expected: 10/31/2023 (Approximate), Expires: 01/30/2024 [facility] Work Phone: Comment on above: Expected: 10/31/2023 (Approximate), Expi res: 01/30/2024 Start: 10-31-2023 End: 01-30-2024 Comprehensive metabolic 2000 panel - Serum or Plasma COMP METABOLIC PANEL Lab Routine Type 2 diabetes mellitus with polyneuropathy (HCC) Encounter for long-term current use of medication Expected: 10/31/2023 (Approximate), Expires: 01/30/2024 [facility] Work Phone: Comment on above: Expected: 10/31/2023 (Approximate), Expi res: 01/30/2024 Start: 10-31-2023 End: 01-30-2024 Hemoglobin A1c in Blood HGB A1C Lab Routine Type 2 diabetes mellitus with polyneuropathy (HCC) Encounter for long-term current use of medication Expected: 10/31/2023 (Approximate), Expires: 01/30/2024 [facility] Work Phone: Comment on above: Expected: 10/31/2023 (Approximate), Expi res: 01/30/2024 Start: 10-31-2023 End: 01-30-2024 Lipid 1996 panel - Serum or Plasma LIPID PANEL BASIC Lab Routine Type 2 diabetes mellitus with polyneuropathy (HCC) Encounter for long-term current use of medication Expected: 10/31/2023 (Approximate), Expires: 01/30/2024 [facility] Work Phone: Comment on above: Expected: 10/31/2023 (Approximate), Expi res: 01/30/2024 Start: 10-28-2023 Covid-19 Vaccine () Covid-19 Vaccine ( season) [facility] Start: 10-28-2023 Influenza vaccination Influenza Vaccine (#1) [facility] Start: 10-21-2023 ANNUAL PCP TEAM CHRONIC DISEASE VISIT ANNUAL PCP TEAM CHRONIC DISEASE VISIT [facility] Start: 10-21-2023 BP CONTROLLED (<130/80) BP CONTROLLED (<130/80) [facility] Start: 10-12-2023 3 comp foot exam completed Diabetic Foot Exam [facility] Start: 10-12-2023 Diabetic foot examination Diabetic Foot Exam [facility] Start: 10-03-2023 Hemoglobin A1c measurement HbA1C [facility] Start: 10-01-2023 End: 10-01-2023 Patient encounter procedure 10/01/2023 9:15 AM EDT Office Visit Podiatry [address] [place] [phone] Claudette Branch [address] [place] [phone] 3 month follow up nail care Podiatry Comment on above: 3 month follow up nail care Start: 09-14-2023 End: 09-14-2023 Patient encounter procedure 09/14/2023 8:50 AM EDT Office Visit Cardiology [address] [place] [phone] Echo Cardiology Comment on above: Echo Start: 09-05-2023 BP CONTROLLED (<130/80) BP CONTROLLED (<130/80) [facility] Start: 08-27-2023 End: 08-19-2024 Echocardiography ECHO Cardiology Routine Chronic diastolic congestive heart failure (HCC) Expected: 08/27/2023, Expires: 08/19/2024 [facility] Work Phone: Comment on above: Expected: 08/27/2023, Expires: Start: 08-20-2023 End: 08-20-2023 Patient encounter procedure 08/20/2023 11:40 AM EDT Office Visit Cardiology [address] [place] [phone] Dl Wheeler MD [address] [facility], [address] [place] [address] 6 month follow up Cardiology Comment on above: 6 month follow up Start: 08-10-2023 ANNUAL PCP TEAM CHRONIC DISEASE VISIT ANNUAL PCP TEAM CHRONIC DISEASE VISIT [facility] Start: 08-10-2023 BP CONTROLLED (<130/80) BP CONTROLLED (<130/80) [facility] Start: 08-10-2023 Hepatitis B surface antibody level LDL CHOLESTEROL [facility] Start: 06-29-2023 ANNUAL PCP TEAM CHRONIC DISEASE VISIT ANNUAL PCP TEAM CHRONIC DISEASE VISIT [facility] Start: 06-29-2023 BP CONTROLLED (<130/80) BP CONTROLLED (<130/80) [facility] Start: 06-21-2023 End: 06-21-2023 Patient encounter procedure 06/21/2023 9:45 AM EDT Office Visit Podiatry [address] [place], [place] [phone] Claudette Branch [address] [place] [phone] 3 month follow up Podiatry Comment on above: 3 month follow up Start: 05-05-2023 PROSTATE CANCER SCREENING DISCUSSION PROSTATE CANCER SCREENING DISCUSSION [facility] Start: 05-05-2023 Prostate specific antigen measurement Prostate Cancer Screening Discussion [facility] Start: 05-02-2023 ANNUAL PCP TEAM CHRONIC DISEASE VISIT ANNUAL PCP TEAM CHRONIC DISEASE VISIT [facility] Start: 05-02-2023 BP CONTROLLED (<130/80) BP CONTROLLED (<130/80) [facility] Start: 04-22-2023 Hemoglobin A1c/Hemoglobin.total in Blood HBA1C [facility] Start: 04-03-2023 ANNUAL PCP TEAM CHRONIC DISEASE VISIT ANNUAL PCP TEAM CHRONIC DISEASE VISIT [facility] Start: 04-03-2023 BP CONTROLLED (<130/80) BP CONTROLLED (<130/80) [facility] Start: 03-23-2023 Hepatitis C antibody, confirmatory test DILATED RETINAL EXAM [facility] Start: 03-18-2023 ANNUAL PCP TEAM CHRONIC DISEASE VISIT ANNUAL PCP TEAM CHRONIC DISEASE VISIT [facility] Start: 03-10-2023 BP CONTROLLED (<130/80) BP CONTROLLED (<130/80) [facility] Start: 03-01-2023 ANNUAL PCP TEAM CHRONIC DISEASE VISIT ANNUAL PCP TEAM CHRONIC DISEASE VISIT [facility] Start: 03-01-2023 BP CONTROLLED (<130/80) BP CONTROLLED (<130/80) [facility] Start: 02-26-2023 Advance Directive Discussion Advance Directive Discussion [facility] Start: 2023 Hemoglobin A1c/Hemoglobin.total in Blood HBA1C [facility] Start: 01-28-2023 ANNUAL PCP TEAM CHRONIC DISEASE VISIT ANNUAL PCP TEAM CHRONIC DISEASE VISIT [facility] Start: 01-28-2023 BP CONTROLLED (<130/80) BP CONTROLLED (<130/80) [facility] Start: 11-29-2022 ANNUAL PCP TEAM CHRONIC DISEASE VISIT ANNUAL PCP TEAM CHRONIC DISEASE VISIT [facility] Start: 11-29-2022 BP CONTROLLED (<130/80) BP CONTROLLED (<130/80) [facility] Start: 11-29-2022 SHINGRIX VACCINE (1 of 2) SHINGRIX VACCINE (1 of 2) [facility] Comment on above: Postponed from 2007 (Declined at t his time) Start: 11-29-2022 Urine microalbumin profile [facility] Comment on above: Postponed from 10/30/2019 (Declined at t his time) Start: 11-23-2022 Hepatitis B screening URINE ALBUMIN:CREATININE RATIO [facility] Start: 11-23-2022 Hepatitis B surface antibody level LDL CHOLESTEROL [facility] Start: 10-27-2022 Covid-19 Vaccine ( season) Covid-19 Vaccine () [facility] Start: 10-27-2022 Influenza vaccination [facility] Start: 10-17-2022 BP CONTROLLED (<130/80) BP CONTROLLED (<130/80) [facility] Start: 09-19-2022 [facility] Start: 09-01-2022 ANNUAL PCP TEAM CHRONIC DISEASE VISIT ANNUAL PCP TEAM CHRONIC DISEASE VISIT [facility] Start: 09-01-2022 BP CONTROLLED (<130/80) BP CONTROLLED (<130/80) [facility] Start: 08-29-2022 Hemoglobin A1c/Hemoglobin.total in Blood HBA1C [facility] Start: 06-07-2022 BP CONTROLLED (<130/80) BP CONTROLLED (<130/80) [facility] Start: 05-30-2022 3 comp foot exam completed DIABETIC FOOT EXAM [facility] Start: 05-30-2022 ANNUAL PCP TEAM CHRONIC DISEASE VISIT ANNUAL PCP TEAM CHRONIC DISEASE VISIT [facility] Start: 05-30-2022 BP CONTROLLED (<130/80) BP CONTROLLED (<130/80) [facility] Start: 05-23-2022 Hemoglobin A1c/Hemoglobin.total in Blood HBA1C [facility] Start: 05-05-2022 ANNUAL PCP TEAM CHRONIC DISEASE VISIT ANNUAL PCP TEAM CHRONIC DISEASE VISIT [facility] Start: 04-01-2022 COVID-19 VACCINE (4 - Pfizer series) COVID-19 VACCINE (4 - Pfizer series) [facility] Start: 03-29-2022 Colsc flx w/rmvl of tumor polyp lesion snare tq COLONOSCOPY W/LESION REMOVAL [facility] Start: 03-29-2022 Egd transoral biopsy single/multiple EGD BIOPSY SINGLE/MULTIPLE [facility] Start: 03-29-2022 Patient discharge [facility] Start: 02-26-2022 ADVANCE DIRECTIVE DISCUSSION ADVANCE DIRECTIVE DISCUSSION [facility] Start: 02-17-2022 Hepatitis C antibody, confirmatory test DILATED RETINAL EXAM [facility] Start: 2022 ADVANCE DIRECTIVE DISCUSSION ADVANCE DIRECTIVE DISCUSSION [facility] Start: 11-29-2021 End: 01-29-2022 ALBUMIN/CREAT RATIO RND UR ALBUMIN/CREAT RATIO RND UR Lab Routine Type 2 diabetes mellitus with polyneuropathy (HCC) Expected: 11/29/2021, Expires: 01/29/2022 [facility] Work Phone: Comment on above: Expected: 11/29/2021, Expires: 2 Start: 11-29-2021 End: 01-29-2022 CBC panel - Blood by Automated count CBC Lab Routine Primary hypertension Expected: 11/29/2021, Expires: 01/29/2022 [facility] Work Phone: Comment on above: Expected: 11/29/2021, Expires: 2 Start: 11-29-2021 End: 01-29-2022 Comprehensive metabolic 2000 panel - Serum or Plasma COMP METABOLIC PANEL Lab Routine Type 2 diabetes mellitus with polyneuropathy (HCC) Expected: 11/29/2021, Expires: 01/29/2022 [facility] Work Phone: Comment on above: Expected: 11/29/2021, Expires: 2 Start: 11-29-2021 End: 01-29-2022 Hemoglobin A1c/Hemoglobin.total in Blood HGB A1C Lab Routine Type 2 diabetes mellitus with polyneuropathy (HCC) Expected: 11/29/2021, Expires: 01/29/2022 [facility] Work Phone: Comment on above: Expected: 11/29/2021, Expires: 2 Start: 11-29-2021 End: 01-29-2022 LIPID PANEL BASIC LIPID PANEL BASIC Lab Routine Other hyperlipidemia Expected: 11/29/2021, Expires: 01/29/2022 [facility] Work Phone: Comment on above: Expected: 11/29/2021, Expires: 2 Start: 11-24-2021 Aldolase [Enzymatic activity/volume] in Serum or Plasma [facility] Work Phone: Start: 11-24-2021 Cancer antigen 19-9 measurement [facility] Work Phone: Start: 11-24-2021 Carcinoembryonic Ag [Mass/volume] in Serum or Plasma [facility] Work Phone: Start: 11-24-2021 IgE [Units/volume] in Serum or Plasma [facility] Work Phone: Start: 11-24-2021 Serum immunofixation [facility] Work Phone: Start: 11-24-2021 [facility] Work Phone: Start: 11-23-2021 Adult depression screening assessment DEPRESSION SCREENING [facility] Start: 11-20-2021 Hemoglobin A1c/Hemoglobin.total in Blood HBA1C [facility] Start: 11-18-2021 Hepatitis B screening URINE ALBUMIN:CREATININE RATIO [facility] Start: 11-18-2021 Hepatitis B surface antibody level LDL CHOLESTEROL [facility] Start: 10-27-2021 Influenza vaccination INFLUENZA (#1) [facility] Start: 09-01-2021 End: 11-01-2021 CBC panel - Blood by Automated count [facility] Work Phone: Comment on above: Expected: 09/01/2021, Expires: 2 Start: 09-01-2021 End: 11-01-2021 Comprehensive metabolic 2000 panel - Serum or Plasma [facility] Work Phone: Comment on above: Expected: 09/01/2021, Expires: 2 Start: 09-01-2021 End: 11-01-2021 Thyrotropin [Units/volume] in Serum or Plasma [facility] Work Phone: Comment on above: Expected: 09/01/2021, Expires: 2 Start: 09-01-2021 End: 11-01-2021 Urinalysis complete panel - Urine [facility] Work Phone: Comment on above: Expected: 09/01/2021, Expires: 2 Start: 06-29-2021 End: 08-29-2021 Bacteria identified in Urine by Culture URINE CULTURE Microbiology Routine Acute cystitis without hematuria Expected: 06/29/2021 (Approximate), Expires: 08/29/2021 [facility] Work Phone: Comment on above: Expected: 06/29/2021 (Approximate), Expi res: 08/29/2021 Start: 06-13-2021 End: 08-13-2021 POTASSIUM BLD POTASSIUM BLD Lab Routine Urinary incontinence, unspecified type Expected: 06/13/2021, Expires: 08/13/2021 [facility] Work Phone: Comment on above: Expected: 06/13/2021, Expires: 2 Start: 05-19-2021 3 comp foot exam completed DIABETIC FOOT EXAM [facility] Start: 05-19-2021 BP CONTROLLED (<130/80) BP CONTROLLED (<130/80) [facility] Start: 11-05-2020 COVID-19 VACCINE (3 - Booster for Pfizer series) COVID-19 VACCINE (3 - Booster for Pfizer series) [facility] Start: 08-25-2020 FECAL OCCULT BLOOD FECAL OCCULT BLOOD [facility] Start: 08-25-2020 Screening for malignant neoplasm of colon Fecal Occult Blood [facility] Start: 10-30-2019 Urine microalbumin profile [facility] Start: 2017 Hepatitis B Vaccine (1 of 3 - Risk 3-dose series) Hepatitis B Vaccine (1 of 3 - Risk 3-dose series) [facility] Start: 2017 RSV Vaccine (1 - 1-dose 60+ series) RSV Vaccine (1 - 1-dose 60+ series) [facility] Start: 2017 RSV Vaccine (1 - Risk 60-74 years 1-dose series) RSV Vaccine (1 - Risk 60-74 years 1-dose series) [facility] Start: 04-20-2015 PNEUMOCOCCAL (2 - PPSV23 if available, else PCV20) PNEUMOCOCCAL (2 - PPSV23 if available, else PCV20) [facility] Start: 04-20-2015 PNEUMOCOCCAL (2 - PPSV23 or PCV20) PNEUMOCOCCAL (2 - PPSV23 or PCV20) [facility] Start: 04-20-2015 PNEUMOCOCCAL: 65+ (2 - PPSV23 if available, else PCV20) PNEUMOCOCCAL: 65+ (2 - PPSV23 if available, else PCV20) [facility] Start: 2007 SHINGRIX VACCINE (1 of 2) SHINGRIX VACCINE (1 of 2) [facility] Start: 2002 COLOGUARD (FIT-DNA) [facility] Start: 2002 Colonoscopy COLONOSCOPY [facility] Start: [address] COLONOGRAPHY [facility] Start: 2002 Screening for malignant neoplasm of colon [facility] Start: 2002 SIGMOIDOSCOPY SIGMOIDOSCOPY [facility] Start: 1975 Anxiety Screening Anxiety Screening [facility] Start: 1975 Depression Screening Depression Screening [facility] Albumin [Moles/volum e] in Serum or Plasma [facility] Work Phone: Albumin/Globulin ratio [facility] Work Phone: Aldolase [Enzymatic activity/volume] in Serum or Plasma [facility] Work Phone: Antibody to lupus La protein measurement [facility] Work Phone: Antibody to SS-A measurement [facility] Work Phone: Bacteria identified in Urine by Culture URINE CULTURE Microbiology Routine Urinary incontinence, unspecified type Overactive bladder Urinary frequency 05/30/2021 2:23 PM EDT [facility] Work Phone: Bacteria identified in Wound by Culture BACTERIAL CULTURE AND GRAM STAIN, ABSCESS AND WOUND (AEROBIC CULTURE) Microbiology Routine Ingrowing toenail of right foot 07/25/2024 3:16 PM EDT [facility] Work Phone: Cancer antigen 19-9 measurement [facility] Work Phone: Carcinoembryonic Ag [Mass/volume] in Serum or Plasma [facility] Work Phone: Centromere protein B Ab [Units/volume] in Serum [facility] Work Phone: Chromatin Ab [Units/volume] in Serum or Plasma [facility] Work Phone: Clostridioides diffi cile DNA [Presence] in Unspecified specimen by RUPERT with probe detection [facility] Work Phone: CT Abdomen and Pelvi s W contrast IV [facility] DNA double strand Ab [Units/volume] in Serum [facility] Work Phone: End: 10-10-2022 ECG COMPLETE ECG COMPLETE ECG Routine Screening for ischemic heart disease 1 Occurrences starting 10/10/2021 until 10/10/2022 [facility] Work Phone: Comment on above: 1 Occurrences starting 10/10/2021 until 10/10/2022 Elastase, pancreatic (el-1), fecal; quantitative [facility] Work Phone: Electrophoresis: [id number] [facility] Work Phone: Electrophoresis: ana paula ma globulin [facility] Work Phone: End: 11-25-2023 EPIL EEG LEAD PLACEMENT EPIL EEG LEAD PLACEMENT NEUROLOGY Routine Recurrent syncope History of seizure disorder History of traumatic brain injury Daytime sleepiness 1 Occurrences starting 11/24/2022 until 11/25/2023 [facility] Work Phone: Comment on above: 1 Occurrences starting 11/24/2022 until 11/25/2023 EPIL VEEG ADMIT TO EMU/PMU EPIL VEEG ADMIT TO EMU/PMU NEUROLOGY Routine Recurrent syncope History of seizure disorder History of traumatic brain injury Daytime sleepiness Ordered: 11/24/2022 [facility] Work Phone: Comment on above: Ordered: 11/24/2022 EPIL VEEG ADMIT TO EMU/PMU EPIL VEEG ADMIT TO EMU/PMU NEUROLOGY Routine Recurrent syncope History of seizure disorder History of traumatic brain injury Daytime sleepiness Ordered: 11/24/2022 [facility] Work Phone: Comment on above: Ordered: 11/24/2022 Fat [Presence] in Stool [facility] Work Phone: Gastrointestinal pathogens panel - Stool by RUPERT with probe detection [facility] Work Phone: Globulin measurement [facility] Work Phone: IgA [Mass/volume] in Serum or Plasma [facility] Work Phone: IgE [Units/volume] i n Serum or Plasma [facility] Work Phone: IgG [Mass/volume] in Serum or Plasma [facility] Work Phone: IgM [Mass/volume] in Serum or Plasma [facility] Work Phone: Fatmata-1 extractable nuc lear Ab [Units/volume] in Serum [facility] Work Phone: Lactoferrin [Presenc e] in Stool by Immunoassay [facility] Work Phone: Neutrophil cytoplasm ic Ab.classic [Units/volume] in Serum [facility] Work Phone: P-ANCA measurement [facility] Work Phone: Patient Education [facility] Work Phone: Patient referral [facility] Work Phone: POST VOID RESIDUAL POST VOID RES IDUAL Procedures Routine Urinary incontinence, unspecified type Ordered: 06/07/2021 [facility] Work Phone: Comment on above: Ordered: 06/07/2021 POST VOID RESIDUAL POST VOID RES IDUAL Procedures Routine BPH with urinary obstruction Ordered: 03/10/2022 [facility] Work Phone: Comment on above: Ordered: 03/10/2022 Protein electrophore sis panel - Serum or Plasma [facility] Work Phone: Protein measurement [facility] Work Phone: PT PLAN OF CARE CERTIFICATION PT PLAN OF CARE CERTIFICATION Procedures Routine Gait abnormality Abnormality of gait Ordered: 07/04/2021 [facility] Work Phone: Comment on above: Ordered: 07/04/2021 SCL-70 extractable nuclear Ab [Units/volume] in Serum by Immunoassay [facility] Work Phone: Serum protein electrophoresis [facility] Work Phone: Bah extractable nu clear Ab [Presence] in Serum [facility] Work Phone: UA DIP B/O UA DIP B/O Lab R outine Urinary incontinence, unspecified type Overactive bladder Urinary frequency Ordered: 05/30/2021 [facility] Work Phone: Comment on above: Ordered: 05/30/2021 US Gallbladder [facility] Work Phone: [facility] Immunizations Immunization Date Immunization Notes Care Provider Jorge mcdonough 01-09-2024 influenza, high dose seasonal, preservative-free Immunization Robby Work Phone: [facility] 01-09-2024 influenza virus vaccine, unspecified formulation Claudette Branch Work Phone: [facility] 01-01-2023 influenza (HD-IIV4) vaccine, age 65+ yr, high dose, quadrivalent, PF (FLUZONE HIGH-DOSE) Jean Carlos Mirza RN Work Phone: [facility] 01-01-2023 influenza virus vaccine, unspecified formulation Eliza Zamora MD Work Phone: [facility] 03-18-2022 pneumococcal (PCV20) vaccine, 20 valent (PREVNAR 20) Dl Wheeler MD Work Phone: [facility] 03-18-2022 pneumococcal Conjugate, unspecified formulation Eliza Zamora MD Work Phone: [facility] Work Phone: 11-29-2021 COVID-19 booster vaccine, age 12+ yr, bivalent (PFIZER-BIONTECH) Paulina Older HOBBING MACHINE OPERATOR.RELIEF WORKER Work Phone: [facility] 11-29-2021 influenza, injectable, quadrivalent, contains preservative Paulina Older HOBBING MACHINE OPERATOR.RELIEF WORKER Work Phone: [facility] 11-29-2021 influenza virus vaccine, unspecified formulation Eliza Zamora MD Work Phone: [facility] 11-29-2020 influenza, injectable, quadrivalent, contains preservative Nehemiah Thomas MD Work Phone: [facility] Work Phone: 06-05-2020 COVID-19 original vaccine, age 12+ yr, monovalent (PFIZER-BIONTECH - PURPLE TOP) Eliza Zamora MD Work Phone: [facility] 05-15-2020 COVID-19 vaccine, ag e 12+ yr (PFIZER-BIONTAldis - PURPLE TOP) Nehemiah Thomas MD Work Phone: [facility] Work Phone: 02-09-2020 influenza, injectable, quadrivalent, contains preservative Nehemiah Thomas MD Work Phone: [facility] 12-17-2014 influenza, injectable, quadrivalent, contains preservative Nehemiah Thomas MD Work Phone: [facility] 04-20-2014 pneumococcal conjugate vaccine, 13 valent Nehemiah Thomas MD Work Phone: [facility] 12-10-2013 influenza, seasonal, injectable Nehemiah Thomas MD Work Phone: [facility] Work Phone: 12-13-2012 influenza virus vaccine, unspecified formulation Nehemiah Thomas MD Work Phone: [facility] 01-06-2012 influenza virus vaccine, unspecified formulation Nehemiah Thomas MD Work Phone: [facility] Work Phone: 01-07-2011 influenza virus vaccine, unspecified formulation Nehemiah Thomas MD Work Phone: [facility] Work Phone: 02-03-2010 influenza virus vaccine, unspecified formulation Nehemiah Thomas MD Work Phone: [facility] Work Phone: 10-29-2009 tetanus toxoid, reduced diphtheria toxoid, and acellular pertussis vaccine, adsorbed Nehemiah Thomas MD Work Phone: [facility] 11-20-2008 influenza virus vaccine, unspecified formulation Nehemiah Thomas MD Work Phone: [facility] 01-14-2008 influenza virus vaccine, unspecified formulation Nehemiah Thomas MD Work Phone: [facility] 01-07-2007 influenza virus vaccine, unspecified formulation Nehemiah Thomas MD Work Phone: [facility] 01-11-2006 influenza virus vaccine, unspecified formulation Nehemiah Thomas MD Work Phone: [facility] 01-17-2005 influenza virus vaccine, unspecified formulation Nehemiah Thomas MD Work Phone: [facility] Work Phone: 10-28-1999 diphtheria and tetanus toxoids, adsorbed for pediatric use Nehemiah Thomas MD Work Phone: [facility] Work Phone: Payers Date Payer Category Payer Self-pay [id number] 2015 Medicaid MEDICAID [facility] MEDICAID [id number] 2015-Present [phone] [address] [place] [address] Medicaid [id number] 2015 Medicaid [id number] 2015 Medicaid [id number] 2014 Medicare [employer] MEDICARE THP [facility] [place] [place] [facility] [id number] 2014-Present [phone] [address] [place] [address] [facility] [id number] 2014 Medicare [employer] MEDICARE THP [facility] [id number] 2014-Present [phone] [address] [place] [address] [facility] [id number] 2014 Medicare (Managed Care) THP SECU RECARE [facility] O [id number] 2014 Unknown [id number] Unknown [id number] Unknown [id number] Unknown [id number] Unknown [id number] Unknown [id number] Unknown [id number] Unknown [id number] Unknown [id number] Unknown [id number] Unknown [id number] Social History Date Type Detail Facility Start: 11-06-2023 Tobacco smoking stat [facility] Never smoked tobacco [facility] Start: 05-05-2021 End: 10-01-2024 Alcohol intake Current non-drinker of alcohol (finding) [facility] Start: 11-19-2019 End: 11-26-2021 History SDOH Alcohol Frequency 1 [facility] Start: 11-19-2019 History SDOH Alcohol Std Drinks 98 [facility] Start: 11-15-2019 End: 01-25-2022 History SDOH Social Connections Get Together 5 [facility] Start: 08-23-2019 End: 01-25-2022 History SDOH Social Connections Membership 2 [facility] Start: 08-23-2019 End: 01-25-2022 History SDOH Social Connections Living 7 [facility] Start: 08-23-2019 End: 01-25-2022 History SDOH Physical Activity DPW 0 [facility] Start: 11-15-2019 History SDOH Stress 3 [facility] Start: 1955 Sex Assigned At Not on file C [facility] Start: 10-30-2020 End: 01-28-2022 Exposure to SARS-CoV-2 (event) Not sure [facility] Start: 06-29-2021 End: 04-02-2023 Tobacco smoking status NHIS Unknown if ever smoked [facility] Start: 1955 Sex Assigned At Male W [facility] Start: 01-24-2022 End: 06-28-2022 History of Social function [facility] Start: 01-24-2022 End: 06-28-2022 Social connection and isolation panel [facility] Do you belong to any clubs or organizations such as yarsani groups, unions, fraternal or athletic groups, or school groups? No [facility] Are you now , , , , never or living with a partner? Never [facility] How often to you hav e a drink containing alcohol? Never [facility] Start: 01-28-[address] inks containing alcohol do you have on a typical day? Patient does not drink [facility] (I/We) worried venkat er (my/our) food would run out before (I/we) got money to buy more. Never true [facility] How hard is it for y ou to pay for the very basics like food, housing, medical care, and heating Hard [facility] Work Phone: Do you feel stress - tense, restless, nervous, or anxious, or unable to sleep at night because your mind is troubled all the time - these days [OSQ] To some extent [facility] Do you feel stress - tense, restless, nervous, or anxious, or unable to sleep at night because your mind is troubled all the time - these days [OSQ] Only a little [facility] Medical Equipment Procedure Code Equipment Code Equipment Original Text Equipment Identifier Dates [id number], [id number], [id number] Start: 06-07-2015 End: 09-15-2023 Comment on above: Test blood sugar(s) 2 times daily. Dx: Type 2 DM - Uncontrolled E11.65 Insulin: No Test blood sugar(s) two times daily. Dx: E11.9. Insulin: No Goals Date Patient Goal Desired Activity /State Personal health goal Functional Status Date Assessment Result Facility 12-06-2022 Are you deaf, or do you have serious difficulty hearing No [facility] 12-06-2022 Are you blind, or do you have serious difficulty seeing, even when wearing glasses No [facility] 12-06-2022 Do you have serious difficulty walking or climbing stairs Yes [facility] 12-06-2022 Do you have difficul ty dressing or bathing Yes [facility] 12-06-2022 Because of a physica l, mental, or emotional condition, do you have difficulty doing errands alone such as visiting a physician's office or shopping Yes [facility] 04-30-2021 Functional status Bathroom Privilege [facility] Work Phone: Mental Status Date Assessment Result Facility 12-06-2022 Because of a physica l, mental, or emotional condition, do you have serious difficulty concentrating, remembering, or making decisions Yes [facility] 06-26-2022 Cognitive function Level Of Cons ciousness Awake;Alert [facility] Work Phone: 03-29-2022 Cognitive function Voice/Name [facility] Work Phone: 03-29-2022 Cognitive function Patient Orientation Pe rson [facility] Work Phone: 03-16-2022 Cognitive function Level Of Cons ciousness Awake;Alert;Appropriate;Fol lows Commands [facility] Work Phone: 04-30-2021 Cognitive function Awake;Alert [facility] Work Phone: 04-30-2021 Cognitive function Voice/Name [facility] Work Phone: Clinical Notes 08-28-2019 to 10-07-2024 Bob Pascual, PT - 10/07/2024 10:44 AM EDTTBob mathews PT - 10/07/2024 10:15 AM EDTTmichoacanoClaudette gant - 09/12/2024 1:29 PM EDTSCait kirkland LPN - 09/12/2024 1:11 PM EDTPatient Instructions Note Date & Type Note Facility 10-07-2024 History of Presen t illness Narrative Program_ID:[id number] Access Code: [email or web address] URL: [email or web address] Date: 10-07-2024 Prepared By: Bob Pascual Program Notes Exercises - Sit to Stand - 1 x daily - 7 x weekly - 3 sets - 10 reps - Seated Hamstring Stretch - 1 x daily - 7 x weekly - 3 sets - reps - Supine Active Straight Leg Raise - 1 x daily - 7 x weekly - 4 sets - 10 reps - Supine Active Straight Leg Raise - 1 x daily - 7 x weekly - 4 sets - 10 reps Images from the original note were not included. Episode Visit Count: 1 Therapist That Will Accept/Oversee The Plan Of Care: Bob Pascual PT Start of Care Date: 10/07/24 Onset Date: 09/06/24 Plan of Care Certification Date: 10/07/24 Next Certification Due Date: 12/02/24 Patient Identified by Name and Date of : Yes REHABILITATION AND SPORTS THERAPY PHYSICAL THERAPY EVALUATION PLAN OF CARE: Assessment: Inna Ortiz presents with chief complaint of LE weakness that interferes with rising from a chair, walking . The patient presents with impairments in flexibility, independence in exercise, range of motion, and strength. PROMIS (Patient-Reported Outcomes Measurement Information System) scores were reviewed and identified as a rehabilitation concern. Prognosis for therapy is Good due to: current objective clinical presentation . Pt demonstrates poor posture, weakness of the qudriceps bilaterally and tight HS as most pertinent findings this session. The patient will benefit from skilled therapy services to meet the goals established for this plan of care as noted below. Goals for Episode of Care: established 10/07/24 Pt will be able to demo WNL ROM of lumbar extension to improve standing posture to improve safety with gait Pt will demo a STS transfer without the use of BUE to demo increased LE strength and the ability to get off of seats without arms Increased strength of BLE to 4+/5 or greater for ease of rising out of a chair and decrease knee pain with ADL's Normal gait. Patient Goals: Strengthen the legs Time Frame for Goals and Treatment : 12/02/24 Planned Interventions, Frequency, and Duration: Current Frequency: 1x every other week Duration: 4 weeks Total Number of Visits Planned: 2 Planned Treatment Interventions: Therapeutic exercise (16571), Patient/Family/Caregiver Education, General Conditioning, Self-skilled nursing management (34447), Neuromuscular re-education (78065), Manual therapy (89161), Gait Training ([id number]) PLAN FOR NEXT VISIT: Assess gastrocnemius flexibility is supine. LE strengthening. Patient demonstrates good understanding of plan of care and treatment. The above goals and plan of care were discussed and agreed upon by patient/family. SUBJECTIVE: Pt's sister states that he seems to be in pain. She is nervous about some veins in his leg and the way his knee sits when he is standing. Patient Goals: Strengthen the legs Functional Limitations: rising from a chair, walking Prior Level of Function: Independent without limitations Intake Information: Prescription present Previous Treatment: Physical Therapy Pain: Pain Pain Level: (Pt is unable to rate pain) Pain Location: Knee - Left PROMIS Scales 10/06/2024 07/29/2021 07/01/2021 Higher is Better Phys Func - T Score 24 (severe dysfunction) 24 (severe dysfunction) 24 (severe dysfunction) Phys Func - Percentile 0 0 0 Self-Eff Symptom - T Score 30 (Low) 32 (Low) 34 (Low) Self-Eff Symptom - Percentile 2 4 5 Proxy-reported T-Score and Percentile Interpretation T-scores: mean of general population = 50. 5 points is clinically meaningfully difference Percentiles provide an indication of how the patient's score ranks in relation to the general population. Higher percentile rankings indicate better function/quality of life. 50th percentile is the average of the general population and indicates half of respondents had a worse score. OBJECTIVE MEASURES WITH LEVEL OF FUNCTION: Posture / Alignment Posture: Forward head, Rounded shoulders (slightly flexed trunk) Knee Observations L Knee Palpation Tenderness: No tenderness noted LE AROM L Knee Extension: 0 Degrees L Knee Flexion: 120 Degrees LE Flexibility Flexibility: Straight Leg Raise R SLR Flexibility: Tight L SLR Flexibility: Tight LE Strength L LE Strength: Difficult to assess dania to poor pt follow through with directions Gait Gait Observation: PT ambulating with flexed trunk posture and decreased knee extension bilateral throughout the gait cycle Education: Education Learning Preferences: Demonstration, Explanation, Performance, Printed Materials Barriers: None Learning/educational needs: Home exercise program, Plan of Care, Changes in Plan of Care Education Provided: Yes, see treatment interventions for education provided Education Provided To: Patient Education Mode/Type: Demonstration, Explanation/Discussion, Literature/Printed Materials, Performance Response to Education/Teach Back: States/Identifies, Return Demonstration TREATMENT: PT Treatment Interventions: Therapeutic Exercise, Self-Fpc Management Evaluation Therapeutic Exercise: 1: Discussed exam findings, purpose of the HEP and the HEP handout was provided to the pt. HEP discussed in detail with how to safely and properly perform each therapeutic exercise. 2: Seated HS stretch x 30 sec (heel on stool) 3: STS x 10 4: Supine SLR x 10 RLE 5: Supine SLR x 10 RLE Skilled Intervention: Patient was educated in proper exercise technique and purpose for exercises. Correct performance of therapeutic exercises was facilitated with verbal and visual cuing. Billing * Evaluation Low Complexity: 1 Unit Therapeutic Exercise Treatment Minutes: 18 Self-Care/Home Management Treatment Minutes: 5 Skilled Treatment Time Minutes (timed and untimed codes): 42 Total Session Time (minutes): 42 Session Start Time : 1015 Session Stop Time : 1057 Bob Pascual PT documented in this encounter [facility] 10-07-2024 Note HNO ID: [id number] Author: BOB PASCUAL PT Service: ? Author Type: Physical Therapist Type: Progress Notes Filed: 10/07/2024 13:10 Note Text: Episode Visit Count: 1 Therapist That Will Accept/Oversee The Plan Of Care: Bob Pascual PT Start of Care Date: 10/07/24 Onset Date: 09/06/24 Plan of Care Certification Date: 10/07/24 Next Certification Due Date: 12/02/24 Patient Identified by Name and Date of : Yes REHABILITATION AND SPORTS THERAPY PHYSICAL THERAPY EVALUATION PLAN OF CARE: Assessment: Inna Ortiz presents with chief complaint of LE weakness that interferes with rising from a chair, walking . The patient presents with impairments in flexibility, independence in exercise, range of motion, and strength. PROMIS? (Patient-Reported Outcomes Measurement Information System) scores were reviewed and identified as a rehabilitation concern. Prognosis for therapy is Good due to: current objective clinical presentation . Pt demonstrates poor posture, weakness of the qudriceps bilaterally and tight HS as most pertinent findings this session. The patient will benefit from skilled therapy services to meet the goals established for this plan of care as noted below. Goals for Episode of Care: established 10/07/24 Pt will be able to demo WNL ROM of lumbar extension to improve standing posture to improve safety with gait Pt will demo a STS transfer without the use of BUE to demo increased LE strength and the ability to get off of seats without arms Increased strength of BLE to 4+/5 or greater for ease of rising out of a chair and decrease knee pain with ADL's Normal gait. Patient Goals: Strengthen the legs Time Frame for Goals and Treatment : 12/02/24 Planned Interventions, Frequency, and Duration: Current Frequency: 1x every other week Duration: 4 weeks Total Number of Visits Planned: 2 Planned Treatment Interventions: Therapeutic exercise (23024), Patient/Family/Caregiver Education, General Conditioning, Self-skilled nursing management (03688), Neuromuscular re-education (51759), Manual therapy (00866), Gait Training (57495) PLAN FOR NEXT VISIT: Assess gastrocnemius flexibility is supine. LE strengthening. Patient demonstrates good understanding of plan of care and treatment. The above goals and plan of care were discussed and agreed upon by patient/family. SUBJECTIVE: Pt's sister states that he seems to be in pain. She is nervous about some veins in his leg and the way his knee sits when he is standing. Patient Goals: Strengthen the legs Functional Limitations: rising from a chair, walking Prior Level of Function: Independent without limitations Intake Information: Prescription present Previous Treatment: Physical Therapy Pain: Pain Pain Level: (Pt is unable to rate pain) Pain Location: Knee - Left PROMIS Scales 10/06/2024 07/29/2021 07/01/2021 Higher is Better Phys Func - T Score 24 (severe dysfunction) 24 (severe dysfunction) 24 (severe dysfunction) Phys Func - Percentile 0 0 0 Self-Eff Symptom - T Score 30 (Low) 32 (Low) 34 (Low) Self-Eff Symptom - Percentile 2 4 5 Proxy-reported T-Score and Percentile Interpretation T-scores: mean of general population = 50. 5 points is clinically meaningfully difference Percentiles provide an indication of how the patient's score ranks in relation to the general population. Higher percentile rankings indicate better function/quality of life. 50th percentile is the average of the general population and indicates half of respondents had a worse score. OBJECTIVE MEASURES WITH LEVEL OF FUNCTION: Posture / Alignment Posture: Forward head, Rounded shoulders (slightly flexed trunk) Knee Observations L Knee Palpation Tenderness: No tenderness noted LE AROM L Knee Extension: 0 Degrees L Knee Flexion: 120 Degrees LE Flexibility Flexibility: Straight Leg Raise R SLR Flexibility: Tight L SLR Flexibility: Tight LE Strength L LE Strength: Difficult to assess dania to poor pt follow through with directions Gait Gait Observation: PT ambulating with flexed trunk posture and decreased knee extension bilateral throughout the gait cycle Education: Education Learning Preferences: Demonstration, Explanation, Performance, Printed Materials Barriers: None Learning/educational needs: Home exercise program, Plan of Care, Changes in Plan of Care Education Provided: Yes, see treatment interventions for education provided Education Provided To: Patient Education Mode/Type: Demonstration, Explanation/Discussion, Literature/Printed Materials, Performance Response to Education/Teach Back: States/Identifies, Return Demonstration TREATMENT: PT Treatment Interventions: Therapeutic Exercise, Self-Fpc Management Evaluation Therapeutic Exercise: 1: Discussed exam findings, purpose of the HEP and the HEP handout was provided to the pt. HEP discussed in detail with how to safely and properly perf (more content not included)... [facility] 10-01-2024 Note HNO ID: [id number] Author: TIFFANI CHAPMAN RT(R) Service: ? Author Type: Dimension Stone Quarry Supervisor Type: Progress Notes Filed: 10/01/2024 14:07 Note Text: Radiology Service Progress Note PATIENT NAME: Inna Ortiz DATE OF SERVICE: October 01, 2024 TIME: 2:06 PM PATIENT IDENTITY VERIFICATION COMPLETED USING TWO (2) IDENTIFIERS: Name and Date of confirmed by patient verbally. FALL SCREENING: Has the patient had 2 falls in the last year or 1 fall with injury or currently using an Ambulatory Assistive Device (Walker, Cane, Wheelchair, Crutches, etc.)? Yes, Patient High Risk for Falls What interventions were put in place to prevent falls during this visit? Offered Assistance with Transfers/Clothing, Instructed Patient to Remain Seated (Not on Exam Table) Until Exam, and Increased Observations by Caregivers PATIENT GENDER DATA: Assigned male at PATIENT RELEVANT IMPLANT DATA REVIEWED: Yes PATIENT PRESENTS WITH AN IMPLANTABLE OR ATTACHED SPECTRAL SCIENTIST: No RADIOLOGY DEPARTMENT: General X-ray: Exam(s) Completed: Lower Extremity X-Ray(s): Knee, AP / Lat / Tunne / Merchant Bilateral PERIPHERAL IV DATA: Not applicable SIGNED BY: RT Kanu(R) October 01, 2024 2:06 PM [facility] 10-01-2024 Note HNO ID: [id number] Author: AMBAR LADD APRN.RELIEF WORKER Service: ? Author Type: Nurse Practitioner Type: Progress Notes Filed: 10/01/2024 13:31 Note Text: SUBJECTIVE Inna Ortiz is a 69 year old male here today for acute concern. Chief Complaint Patient presents with: Knee Pain: Bilateral x 2-3 weeks HPI Inna Ortiz is a 69-year-old male with a history of a CVA and arthritis, presenting with worsening left knee pain and gait changes. He is accompanied by his sister, who is providing history on his behalf. Inna's caregiver reports a several-week history of worsening left knee pain and instability, noting that the knee wants to turn in and that Inna has difficulty ambulating, sometimes requiring assistance to rise from a seated position. The caregiver also notes visible changes in the veins of the left leg, which are concerning to her. Inna has a history of a fall on ice and a CVA, after which he began dragging his left leg when walking for extended periods. He has a lifelong habit of crossing his legs, which the caregiver believes contributes to his current issues. Inna reportedly experiences significant pain in the left knee, which is exacerbated by movement and manipulation. The caregiver recounts an incident where Inna freaked out when his pants were pulled up over his knee, indicating severe pain. Inna has been using Bioflex pills and arthritis hot cream daily, but the caregiver does not believe these are effective. The caregiver also reports that Inna has been losing weight and muscle mass, particularly in his legs, which she attributes to decreased activity and lack of physical therapy. She notes that Inna was 122 lbs in July and is now 121.4 lbs. Recording using [employer] software for draft documentation of the visit was discussed with the patient/authorized passenger representative; all questions welcomed and answered. Patient/authorized passenger representative agreed to proceed His medications were reviewed today and his list is now up to date. Medications Current Outpatient Medications Medication Sig melatonin 3 mg capsules Take 3 mg by mouth daily at bedtime. sertraline (ZOLOFT) 50 mg tablet Take 50 mg by mouth every morning. Menthol-Zinc Oxide (CALMOSEPTINE) 0.44-20.6 % Apply to affected area two times a day. oxybutynin ER (DITROPAN XL) 10 mg 24 hr tablet Take 1 tablet by mouth once daily. prazosin (MINIPRESS) 1 mg cap Take 1 capsule by mouth daily at bedtime. lacosamide (VIMPAT) 150 mg tab Take 150 mg by mouth two times a day. fluticasone (FLONASE) 50 mcg/actuation nasal spray Use 2 Sprays in each nostril once daily as needed. Rinse mouth after use. simvastatin (ZOCOR) 20 mg tablet Take 1 tablet by mouth daily at bedtime. blood sugar diagnostic (BLOOD GLUCOSE TEST) test strip Test blood sugar(s) 2 times daily. Dx: Type 2 DM - Uncontrolled E11.65 Insulin: No famotidine (PEPCID) 20 mg tablet Take 1 tablet by mouth once daily. (Per GI) docusate sodium (COLACE) 100 mg capsule Take 200 mg by mouth daily with breakfast. Lactobacillus rhamnosus GG (CULTURELLE ORAL) Take 1 capsule by mouth once daily. glucosamine/chondr victoria A sod (OSTEO BI-FLEX ORAL) Take by mouth once daily. Lancets lancets Test blood sugar(s) two times daily. Dx: E11.9. Insulin: No aspirin, enteric coated (ECOTRIN LOW STRENGTH) 81 mg EC tablet Take 1 tablet by mouth once daily. meloxicam (MOBIC) 15 mg tablet Take 1 tablet by mouth once daily as needed for pain. XCOPRI TITRATION PACK 12.5 mg (14)- 25 mg (14) tablets in a dose pack Take by mouth once daily. No current facility-administered medications for this visit. 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) - 04/20/2014 Type 2 Diabetes Mellitus With Polyneuropathy ([facility]) - 02/20/2014 Comment: Chago, bilateral. Nail dystrophy. 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 Cardiovascular: Negative. Musculoskeletal: Positive for arthralgias and gait problem. OBJECTIVE BP 112/74 Pulse 68 Resp 14 Wt 122 lb 12.7 oz (55.7kg) SpO2 99% Physical Exam Vitals and nursing note rev (more content not included)... [facility] 09-12-2024 Note HNO ID: [id number] Author: CLAUDETTE BRANCH, ? Service: ? Author Type: Physician Type: Progress Notes Filed: 09/12/2024 13:30 Note Text: Subjective Inna Ortiz is a 69-year-old male, accompanied by his who is providing history on his behalf, presenting for follow-up of a right great toe wound. Right Great Toe Wound: - Currently wearing a surgical shoe. - Right great toenail has been removed; new nail formation noted at the proximal base. - Inna's sister reports that he has been expressing pain in the toe. Cardiovascular: (+) right ankle swelling, (+) foot swelling Musculoskeletal: (+) right great toe pain, (+) back discomfort PAST MEDICAL HISTORY Diagnosis Date CONVULSIONS, OTHER [...] hypertension 10/10/2004 Current Outpatient Medications Medication Sig Dispense Refill melatonin 3 mg capsules Take 3 mg by mouth daily at bedtime. sertraline (ZOLOFT) 50 mg tablet Take 50 mg by mouth every morning. XCOPRI TITRATION PACK 12.5 mg (14)- 25 mg (14) tablets in a dose pack Take by mouth once daily. Menthol-Zinc Oxide (CALMOSEPTINE) 0.44-20.6 % Apply to affected area two times a day. 113 g 1 oxybutynin ER (DITROPAN XL) 10 mg 24 hr tablet Take 1 tablet by mouth once daily. 90 tablet 3 prazosin (MINIPRESS) 1 mg cap Take 1 capsule by mouth daily at bedtime. 90 capsule 3 lacosamide (VIMPAT) 150 mg tab Take 150 mg by mouth two times a day. fluticasone (FLONASE) 50 mcg/actuation nasal spray Use 2 Sprays in each nostril once daily as needed. Rinse mouth after use. 1 Each 5 simvastatin (ZOCOR) 20 mg tablet Take 1 tablet by mouth daily at bedtime. 90 tablet 3 blood sugar diagnostic (BLOOD GLUCOSE TEST) test strip Test blood sugar(s) 2 times daily. Dx: Type 2 DM - Uncontrolled E11.65 Insulin: No 200 Strip 3 famotidine (PEPCID) 20 mg tablet Take 1 tablet by mouth once daily. (Per GI) 90 tablet 2 docusate sodium (COLACE) 100 mg capsule Take 200 mg by mouth daily with breakfast. Lactobacillus rhamnosus GG (CULTURELLE ORAL) Take 1 [...] No current facility-administered medications for this visit. Family History Problem Relation Age of Onset Coronary Artery Disease Father Heart Father [place] AT AGE 63 COPD Sister Asthma Sister No Known Problems Maternal Grandmother No Known Problems Maternal Grandfather No Known Problems Paternal Grandmother No Known Problems Paternal Grandfather Colon Cancer Other Cancer Other LUNG Diabetes Other Emphysema Other Objective There were no vitals taken for this visit. - Cardiovascular: DP and PT pulses palpable bilaterally; capillary refill <5 seconds; skin temperature warm to cool bilaterally. - Skin: Diminished hair growth on both feet. - Musculoskeletal: - Right Foot: - Great toenail removed; nail bed healed without signs of infection, no drainage noted; new nail formation at proximal base. - Remaining toenails of both feet normal in length and thickness; no open sores noted. Labs: Tests: Imaging: - CT scan Assessment AND Plan 1. Open wound of toe, initial encounter (S91.109A) - Wound appears to be healing well; no further soaking is necessary. - Advised use of a deep shoe to prevent rubbing. - Provided a toe cap for protection, with instructions to remove periodically to prevent moisture accumulation and maceration. - Follow-up for nail care as needed. Recording using [employer] software for draft documentation of the visit was discussed with the patient/authorized passenger representative; all questions welcomed and answered. Patient/authorized passenger representative agreed to proceed Claudette Branch DPM [facility] 09-12-2024 History of Presen t illness Narrative Subjective Inna Ortiz is a 69-year-old male, accompanied by his who is providing history on his behalf, presenting for follow-up of a right great toe wound. Right Great Toe Wound: - Currently wearing a surgical shoe. - Right great toenail has been removed; new nail formation noted at the proximal base. - Inna's sister reports that he has been expressing pain in the toe. Cardiovascular: (+) right ankle swelling, (+) foot swelling Musculoskeletal: (+) right great toe pain, (+) back discomfort PAST MEDICAL HISTORY Diagnosis Date CONVULSIONS, OTHER [...] hypertension 10/10/2004 Current Outpatient Medications Medication Sig Dispense Refill melatonin 3 mg capsules Take 3 mg by mouth daily at bedtime. sertraline (ZOLOFT) 50 mg tablet Take 50 mg by mouth every morning. XCOPRI TITRATION PACK 12.5 mg (14)- 25 mg (14) tablets in a dose pack Take by mouth once daily. Menthol-Zinc Oxide (CALMOSEPTINE) 0.44-20.6 % Apply to affected area two times a day. 113 g 1 oxybutynin ER (DITROPAN XL) 10 mg 24 hr tablet Take 1 tablet by mouth once daily. 90 tablet 3 prazosin (MINIPRESS) 1 mg cap Take 1 capsule by mouth daily at bedtime. 90 capsule 3 lacosamide (VIMPAT) 150 mg tab Take 150 mg by mouth two times a day. fluticasone (FLONASE) 50 mcg/actuation nasal spray Use 2 Sprays in each nostril once daily as needed. Rinse mouth after use. 1 Each 5 simvastatin (ZOCOR) 20 mg tablet Take 1 tablet by mouth daily at bedtime. 90 tablet 3 blood sugar diagnostic (BLOOD GLUCOSE TEST) test strip Test blood sugar(s) 2 times daily. Dx: Type 2 DM - Uncontrolled E11.65 Insulin: No 200 Strip 3 famotidine (PEPCID) 20 mg tablet Take 1 tablet by mouth once daily. (Per GI) 90 tablet 2 docusate sodium (COLACE) 100 mg capsule Take 200 mg by mouth daily with breakfast. Lactobacillus rhamnosus GG (CULTURELLE ORAL) Take 1 [...] No current facility-administered medications for this visit. Family History Problem Relation Age of Onset Coronary Artery Disease Father Heart Father [place] AT AGE 63 COPD Sister Asthma Sister No Known Problems Maternal Grandmother No Known Problems Maternal Grandfather No Known Problems Paternal Grandmother No Known Problems Paternal Grandfather Colon Cancer Other Cancer Other LUNG Diabetes Other Emphysema Other Objective There were no vitals taken for this visit. - Cardiovascular: DP and PT pulses palpable bilaterally; capillary refill <5 seconds; skin temperature warm to cool bilaterally. - Skin: Diminished hair growth on both feet. - Musculoskeletal: - Right Foot: - Great toenail removed; nail bed healed without signs of infection, no drainage noted; new nail formation at proximal base. - Remaining toenails of both feet normal in length and thickness; no open sores noted. Labs: Tests: Imaging: - CT scan Assessment & Plan 1. Open wound of toe, initial encounter (S91.109A) - Wound appears to be healing well; no further soaking is necessary. - Advised use of a deep shoe to prevent rubbing. - Provided a toe cap for protection, with instructions to remove periodically to prevent moisture accumulation and maceration. - Follow-up for nail care as needed. Recording using [employer] software for draft documentation of the visit was discussed with the patient/authorized passenger representative; all questions welcomed and answered. Patient/authorized passenger representative agreed to proceed Claudette Branch DPM AMB ROOMING INTAKE FLOWSHEET DATA Patient presents with: Right Foot - Established Patient, Follow Up, Ingrown Nail Cait Bah LPN documented in this encounter [facility] 09-12-2024 Instructions Claudette Branch - 09/12/2024 1:25 PM EDT - your wound is now healed. - You do not need to cover the nail bed with a bandage anymore. - Continue wearing a deep, roomy shoe so nothing rubs against the toe. - If you feel rubbing or pain on top of the toe, use the pad provided--but remove it periodically to prevent excess moisture documented in this encounter [facility] 09-12-2024 Note HNO ID: [id number] Author: CAIT BAH LPN Service: ? Author Type: LICENSED NURSE Type: Progress Notes Filed: 09/12/2024 13:30 Note Text: AMB ROOMING INTAKE FLOWSHEET DATA Patient presents with: Right Foot - Established Patient, Follow Up, Ingrown Nail Cait Bah LPN [facility] 08-26-2024 Note HNO ID: [id number] Author: CLAUDETTE BRANCH, ? Service: ? Author Type: Physician Type: Progress Notes Filed: 08/26/2024 10:49 Note Text: Subjective Inna Ortiz is a 69-year-old male, accompanied by his caregiver who is providing history on his behalf, presenting for follow-up of a recent toenail removal. Toenail Removal: - Recent removal of the right great toenail due to persistent redness and a previous Staphylococcus lugdunensis infection. - Caregiver reports only one instance of pain post-procedure. - Caregiver has been applying Neosporin and a Band-Aid after soaking the toe. - No known trauma to the toe post-procedure. Musculoskeletal: (-) right great toe pain PAST MEDICAL HISTORY Diagnosis Date CONVULSIONS, OTHER [...] hypertension 10/10/2004 Current Outpatient Medications Medication Sig Dispense Refill melatonin 3 mg capsules Take 3 mg by mouth daily at bedtime. sertraline (ZOLOFT) 50 mg tablet Take 50 mg by mouth every morning. XCOPRI TITRATION PACK 12.5 mg (14)- 25 mg (14) tablets in a dose pack Take by mouth once daily. Menthol-Zinc Oxide (CALMOSEPTINE) 0.44-20.6 % Apply to affected area two times a day. 113 g 1 oxybutynin ER (DITROPAN XL) 10 mg 24 hr tablet Take 1 tablet by mouth once daily. 90 tablet 3 prazosin (MINIPRESS) 1 mg cap Take 1 capsule by mouth daily at bedtime. 90 capsule 3 lacosamide (VIMPAT) 150 mg tab Take 150 mg by mouth two times a day. fluticasone (FLONASE) 50 mcg/actuation nasal spray Use 2 Sprays in each nostril once daily as needed. Rinse mouth after use. 1 Each 5 simvastatin (ZOCOR) 20 mg tablet Take 1 tablet by mouth daily at bedtime. 90 tablet 3 blood sugar diagnostic (BLOOD GLUCOSE TEST) test strip Test blood sugar(s) 2 times daily. Dx: Type 2 DM - Uncontrolled E11.65 Insulin: No 200 Strip 3 famotidine (PEPCID) 20 mg tablet Take 1 tablet by mouth once daily. (Per GI) 90 tablet 2 docusate sodium (COLACE) 100 mg capsule Take 200 mg by mouth daily with breakfast. Lactobacillus rhamnosus GG (CULTURELLE ORAL) Take 1 [...] No current facility-administered medications for this visit. Family History Problem Relation Age of Onset Coronary Artery Disease Father Heart Father [place] AT AGE 63 COPD Sister Asthma Sister No Known Problems Maternal Grandmother No Known Problems Maternal Grandfather No Known Problems Paternal Grandmother No Known Problems Paternal Grandfather Colon Cancer Other Cancer Other LUNG Diabetes Other Emphysema Other Objective There were no vitals taken for this visit. - Cardiovascular: Dorsalis pedis and posterior tibial pulses palpable bilaterally; capillary refill time <5 seconds in right hallux. - Skin: Warm temperature from proximal to distal; no erythema noted on the right foot. - Musculoskeletal: - Right Great Toe: - Toenail removed; nail bed healing without drainage; no erythema noted; slight maceration at the distal tip. Labs: - (June) Wound Culture: Staphylococcus lugdunensis, susceptible to multiple antibiotics Assessment AND Plan 1. Open wound of toe, initial encounter (S91.109A) - Status post toenail removal due to persistent redness and infection with Staphylococcus lugdunensis; previous wound culture confirmed susceptibility to multiple antibiotics. - wound to right great toenail bed is healing. slight macerated nail bed noted but no signs of infection - Educated on proper wound care: advised to continue soaking the toe, allowing it to air dry for 20-30 minutes post-soak, and applying a minimal amount of topical antibiotic to the nail bed. - Instructed to avoid excessive application of Neosporin to prevent maceration. - Offered follow-up in 2-3 weeks to assess healing progress or in 2-3 months for routine toenail trimming. Recording using [employer] software for draft documentation of the visit was discussed with the patient/authorized passenger representative; all questions welcomed and answered. Patient/authorized passenger representative agreed to proceed Claudette Branch DPM [facility] 08-26-2024 History of Presen t illness Narrative Subjective Inna Ortiz is a 69-year-old male, accompanied by his caregiver who is providing history on his behalf, presenting for follow-up of a recent toenail removal. Toenail Removal: - Recent removal of the right great toenail due to persistent redness and a previous Staphylococcus lugdunensis infection. - Caregiver reports only one instance of pain post-procedure. - Caregiver has been applying Neosporin and a Band-Aid after soaking the toe. - No known trauma to the toe post-procedure. Musculoskeletal: (-) right great toe pain PAST MEDICAL HISTORY Diagnosis Date CONVULSIONS, OTHER [...] hypertension 10/10/2004 Current Outpatient Medications Medication Sig Dispense Refill melatonin 3 mg capsules Take 3 mg by mouth daily at bedtime. sertraline (ZOLOFT) 50 mg tablet Take 50 mg by mouth every morning. XCOPRI TITRATION PACK 12.5 mg (14)- 25 mg (14) tablets in a dose pack Take by mouth once daily. Menthol-Zinc Oxide (CALMOSEPTINE) 0.44-20.6 % Apply to affected area two times a day. 113 g 1 oxybutynin ER (DITROPAN XL) 10 mg 24 hr tablet Take 1 tablet by mouth once daily. 90 tablet 3 prazosin (MINIPRESS) 1 mg cap Take 1 capsule by mouth daily at bedtime. 90 capsule 3 lacosamide (VIMPAT) 150 mg tab Take 150 mg by mouth two times a day. fluticasone (FLONASE) 50 mcg/actuation nasal spray Use 2 Sprays in each nostril once daily as needed. Rinse mouth after use. 1 Each 5 simvastatin (ZOCOR) 20 mg tablet Take 1 tablet by mouth daily at bedtime. 90 tablet 3 blood sugar diagnostic (BLOOD GLUCOSE TEST) test strip Test blood sugar(s) 2 times daily. Dx: Type 2 DM - Uncontrolled E11.65 Insulin: No 200 Strip 3 famotidine (PEPCID) 20 mg tablet Take 1 tablet by mouth once daily. (Per GI) 90 tablet 2 docusate sodium (COLACE) 100 mg capsule Take 200 mg by mouth daily with breakfast. Lactobacillus rhamnosus GG (CULTURELLE ORAL) Take 1 [...] No current facility-administered medications for this visit. Family History Problem Relation Age of Onset Coronary Artery Disease Father Heart Father [place] AT AGE 63 COPD Sister Asthma Sister No Known Problems Maternal Grandmother No Known Problems Maternal Grandfather No Known Problems Paternal Grandmother No Known Problems Paternal Grandfather Colon Cancer Other Cancer Other LUNG Diabetes Other Emphysema Other Objective There were no vitals taken for this visit. - Cardiovascular: Dorsalis pedis and posterior tibial pulses palpable bilaterally; capillary refill time <5 seconds in right hallux. - Skin: Warm temperature from proximal to distal; no erythema noted on the right foot. - Musculoskeletal: - Right Great Toe: - Toenail removed; nail bed healing without drainage; no erythema noted; slight maceration at the distal tip. Labs: - (June) Wound Culture: Staphylococcus lugdunensis, susceptible to multiple antibiotics Assessment & Plan 1. Open wound of toe, initial encounter (S91.109A) - Status post toenail removal due to persistent redness and infection with Staphylococcus lugdunensis; previous wound culture confirmed susceptibility to multiple antibiotics. - wound to right great toenail bed is healing. slight macerated nail bed noted but no signs of infection - Educated on proper wound care: advised to continue soaking the toe, allowing it to air dry for 20-30 minutes post-soak, and applying a minimal amount of topical antibiotic to the nail bed. - Instructed to avoid excessive application of Neosporin to prevent maceration. - Offered follow-up in 2-3 weeks to assess healing progress or in 2-3 months for routine toenail trimming. Recording using [employer] software for draft documentation of the visit was discussed with the patient/authorized passenger representative; all questions welcomed and answered. Patient/authorized passenger representative agreed to proceed Claudette Branch DPM AMB ROOMING INTAKE FLOWSHEET DATA Patient presents with: Right Foot - Established Patient, Follow Up, Ingrown Nail Cait Bah LPN documented in this encounter [facility] 08-26-2024 Instructions Claudette Branch - 08/26/2024 10:31 AM EDT - Continue soaking your right big toe as you have been doing. After each soak, let the area air dry for about 20-30 minutes. - Gently pat the toe dry, then apply a very small amount of topical antibiotic (Neosporin) only to the bottom part; avoid heavy or heaping coats. - Cover the toe with a loosely applied bandage and change it daily to keep the area clean and dry. - Maintain this routine for about one more week. You ll notice the tissue scabbing and peeling--this is normal and will slough off as the nail bed heals. - Your nail bed is healing well and the toenail will regrow over time; no permanent removal was done. - Watch for any signs of infection--new redness, increased pain, swelling, or drainage--and contact our office if these occur. - If you d like a follow-up check, you can schedule a visit in 2-3 weeks to assess healing or in 2-3 months for toenail trimming. documented in this encounter [facility] 08-26-2024 Note HNO ID: [id number] Author: CAIT BAH LPN Service: ? Author Type: LICENSED NURSE Type: Progress Notes Filed: 08/26/2024 10:49 Note Text: AMB ROOMING INTAKE FLOWSHEET DATA Patient presents with: Right Foot - Established Patient, Follow Up, Ingrown Nail Cait Bah LPN [facility] 08-18-2024 Note HNO ID: [id number] Author: DL WHEELER MD Service: ? Author Type: Physician Type: Progress Notes Filed: 08/18/2024 15:25 Note Text: Dl Wheeler MD Interventional Cardiology [address] [place] [address] [phone] Chief Complaint Patient presents with: Follow Up HISTORY OF PRESENT ILLNESS: Mr. Ortiz is a 69 year old male seen in my office for follow-up prior history of nonischemic dilated cardiomyopathy and atrial fibrillation in the past with ejection fraction 42% by recent echo done in August 2023 he could not tolerate a blood pressure medication because of low blood pressure his blood pressure has been well-controlled off all medications no signs or symptoms of congestive heart failure Cardiac Risk Factors [...] Onset Coronary Artery Disease Father Heart Father [place] AT AGE 63 COPD Sister Asthma Sister No Known Problems Maternal Grandmother No Known Problems Maternal Grandfather No Known Problems Paternal Grandmother No Known Problems Paternal Grandfather Colon Cancer Other Cancer Other LUNG Diabetes Other Emphysema Other Social History Tobacco Use Smoking status: Never Smokeless tobacco: Never Vaping Use Vaping status: Never Used Substance Use Topics Alcohol use: No Drug use: No ALLERGIES Allergen Reactions Bandar Inhibitors Other: See Comments Cough, hypotension Macrobid [Nitrofura* Rash Cefdinir Rash Medications: Current Outpatient Medications Medication Sig Dispense Refill melatonin 3 mg capsules Take 3 mg by mouth daily at bedtime. sertraline (ZOLOFT) 50 mg tablet Take 50 mg by mouth every morning. XCOPRI TITRATION PACK 12.5 mg (14)- 25 mg (14) tablets in a dose pack Take by mouth once daily. Menthol-Zinc Oxide (CALMOSEPTINE) 0.44-20.6 % Apply to affected area two times a day. 113 g 1 oxybutynin ER (DITROPAN XL) 10 mg 24 hr tablet Take 1 tablet by mouth once daily. 90 tablet 3 prazosin (MINIPRESS) 1 mg cap Take 1 capsule by mouth daily at bedtime. 90 capsule 3 lacosamide (VIMPAT) 150 mg tab Take 150 mg by mouth two times a day. fluticasone (FLONASE) 50 mcg/actuation nasal spray Use 2 Sprays in each nostril once daily as needed. Rinse mouth after use. 1 Each 5 simvastatin (ZOCOR) 20 mg tablet Take 1 tablet by mouth daily at bedtime. 90 tablet 3 blood sugar diagnostic (BLOOD GLUCOSE TEST) test strip Test blood sugar(s) 2 times daily. Dx: Type 2 DM - Uncontrolled E11.65 Insulin: No 200 Strip 3 famotidine (PEPCID) 20 mg tablet Take 1 tablet by mouth once daily. (Per GI) 90 tablet 2 docusate sodium (COLACE) 100 mg capsule Take 200 mg by mouth daily with breakfast. Lactobacillus rhamnosus GG (CULTURELLE ORAL) Take 1 [...] change, focal weakness, seizures, loss of consciousness, w (more content not included)... [facility] 08-18-2024 History of Presen t illness Narrative Images from the original note were not included. Dl Wheeler MD Interventional Cardiology [address] [place] [address] [phone] Chief Complaint Patient presents with: Follow Up HISTORY OF PRESENT ILLNESS: Mr. Ortiz is a 69 year old male seen in my office for follow-up prior history of nonischemic dilated cardiomyopathy and atrial fibrillation in the past with ejection fraction 42% by recent echo done in August 2023 he could not tolerate a blood pressure medication because of low blood pressure his blood pressure has been well-controlled off all medications no signs or symptoms of congestive heart failure Cardiac Risk Factors [...] Onset Coronary Artery Disease Father Heart Father [place] AT AGE 63 COPD Sister Asthma Sister No Known Problems Maternal Grandmother No Known Problems Maternal Grandfather No Known Problems Paternal Grandmother No Known Problems Paternal Grandfather Colon Cancer Other Cancer Other LUNG Diabetes Other Emphysema Other Social History Tobacco Use Smoking status: Never Smokeless tobacco: Never Vaping Use Vaping status: Never Used Substance Use Topics Alcohol use: No Drug use: No ALLERGIES Allergen Reactions Bandar Inhibitors Other: See Comments Cough, hypotension Macrobid [Nitrofura* Rash Cefdinir Rash Medications: Current Outpatient Medications Medication Sig Dispense Refill melatonin 3 mg capsules Take 3 mg by mouth daily at bedtime. sertraline (ZOLOFT) 50 mg tablet Take 50 mg by mouth every morning. XCOPRI TITRATION PACK 12.5 mg (14)- 25 mg (14) tablets in a dose pack Take by mouth once daily. Menthol-Zinc Oxide (CALMOSEPTINE) 0.44-20.6 % Apply to affected area two times a day. 113 g 1 oxybutynin ER (DITROPAN XL) 10 mg 24 hr tablet Take 1 tablet by mouth once daily. 90 tablet 3 prazosin (MINIPRESS) 1 mg cap Take 1 capsule by mouth daily at bedtime. 90 capsule 3 lacosamide (VIMPAT) 150 mg tab Take 150 mg by mouth two times a day. fluticasone (FLONASE) 50 mcg/actuation nasal spray Use 2 Sprays in each nostril once daily as needed. Rinse mouth after use. 1 Each 5 simvastatin (ZOCOR) 20 mg tablet Take 1 tablet by mouth daily at bedtime. 90 tablet 3 blood sugar diagnostic (BLOOD GLUCOSE TEST) test strip Test blood sugar(s) 2 times daily. Dx: Type 2 DM - Uncontrolled E11.65 Insulin: No 200 Strip 3 famotidine (PEPCID) 20 mg tablet Take 1 tablet by mouth once daily. (Per GI) 90 tablet 2 docusate sodium (COLACE) 100 mg capsule Take 200 mg by mouth daily with breakfast. Lactobacillus rhamnosus GG (CULTURELLE ORAL) Take 1 [...] does not have insomnia. Physical Examination: Vitals:BP 122/73 Pulse 70 SpO2 100% BP w/Orthostatic Vitals Date and Time Orthostatic BP Orthostatic Pulse BP Pulse BP Position BP Site BP Cuff Size 08/18/24 1453 -- -- 122/73 70 -- -- -- Last 2 Encounter Wt Readings: Date: Wt: 08/18/2024 55.6 kg (122 lb 9.2 oz) 08/06/2024 55.3 kg (122 lb) Physical Exam Constitutional: General: He is not in acute distress. Appearance: He is not diaphoretic. HENT: Head: Normocephalic and atraumatic. Right Ear: External ear normal. Left Ear: External ear normal. Nose: Nose normal. Eyes: General: Right eye: No discharge. Left [...] and oriented to person, place, and time. Pertinent Labs: CBC: Hemoglobin (g/dL) Date Value 05/21/2024 14.5 11/18/2020 15.7 Hematocrit (%) Date Value 05/21/2024 46.0 11/18/2020 51.0 WBC (k/uL) Date Value 05/21/2024 5.83 11/18/2020 7.56 Platelet Count (k/uL) Date Value 05/21/2024 209 11/18/2020 246 BMP: Glucose (mg/dL) Date Value 05/21/2024 146 11/18/2020 112 Potassium (mmol/L) Date Value 05/21/2024 4.4 11/18/2020 4.1 Sodium (mmol/L) Date Value 05/21/2024 139 11/18/2020 139 Chloride (mmol/L) Date Value 05/21/2024 102 11/18/2020 101 CO2 (mmol/L) Date Value 05/21/2024 28 11/18/2020 26 Creatinine (mg/dL) Date Value 05/21/2024 1.00 11/18/2020 0.99 BUN (mg/dL) Date Value 05/21/2024 13 11/18/2020 17 Anion Gap (mmol/L) Date Value 05/21/2024 9 11/18/2020 12 Calcium (mg/dL) Date Value 11/18/2020 9.8 Calcium, Total (mg/dL) Date Value 05/21/2024 9.7 INR: Lipid Profile: Cholesterol, Total Date Value Ref Range Status 11/10/2023 153 <200 mg/dL Final Comment: <200 mg/dL, Desirable 200-239 mg/dL, Borderline high >239 mg/dL, High HDL Cholesterol Date Value Ref Range Status 11/10/2023 55 >39 mg/dL Final Comment: 40-59 mg/dL, Acceptable >59 mg/dL, High: Negative risk factor for coronary heart disease <40 mg/dL, Low: Positive risk factor for coronary heart disease LDL Cholesterol, Calculated Date Value Ref Range Status 11/10/2023 83 <100 mg/dL Final Comment: <100 mg/dL, Optimal 100-129 mg/dL, Near optimal/above optimal 130-159 mg/dL, Borderline high 160-189 mg/dL, High >189 mg/dL, Very high Secondary prevention optimal LDL Cholesterol levels are recommended to be < 70 mg/dL Triglyceride Date Value Ref Range Status 11/10/2023 74 <150 mg/dL Final Comment: <150 mg/dL, Normal 150-199 mg/dL, Borderline high 200-499 mg/dL, High >499 mg/dL, Very high Hemoglobin A1C: No results found for: HGBA1C TSH: No results found for: TSHREFL Prior Cardiac Testing none Assessment and Plan: 69 years old gentleman with prior history of cardiomyopathy with ejection fraction 42% with no signs or symptoms of congestive heart failure ASSESSMENT/PLAN: 1. Primary hypertension - ICD9: 401.9, ICD10: I10 (primary diagnosis) - Controlled - Recommend home blood pressure monitoring, to bring results to next visit - Encouraged sodium restriction, DASH or Mediterranean diet - Recommend regular aerobic exercise - ECHO - PERFLUTREN LIPID MICROSPHERES 1.1 MG/ML INJECTION IN NS 10 ML - SODIUM CHLORIDE 0.9 % (FLUSH) INJECTION SYRINGE 2. Cardiomyopathy, nonischemic (HCC) - ICD9: 425.4, ICD10: I42.8 Dilated cardiomyopathy will schedule for echo to assess EF Not on any medication because of very soft low blood pressures at time Dl Wheeler MD Follow up plannin months Electronically signed by Dl Wheeler MD on August 18, 2024, 3:21 PM The above note was partially created using a dictation recognition software. A reasonable attempt has been made to correct any errors. documented in this encounter [facility] 08-18-2024 Instructions Ambar Ladd APRN.CNP - 08/18/2024 9:44 AM EDT Okay for melatonin 3 mg, if needed can give 6 mg. Continue other medications. Keep follow up as scheduled. Continue care to the pressure area as you are. documented in this encounter [facility] 08-18-2024 Note HNO ID: [id number] Author: AMBAR LADD APRN.CNP Service: ? Author Type: Nurse Practitioner Type: Progress Notes Filed: 08/18/2024 10:09 Note Text: SUBJECTIVE Inna Ortiz is a 69 year old male here today for a recheck. Chief Complaint Patient presents with: 2 week follow up: did have toe nail removed and is looking better HPI Inna Ortiz is a 69 year old male. He is an established patient of Eliza Zamora MD. Accompanied by sister and her significant other who are primary caregivers. HPI gathered from them. Here today for a recheck. Seen with Jasmin West on 08/06 for stage 1 pressure injury and ingrown toe nail. Seen with podiatry on 08/14 and ingrown toe nail removed. Doing well since this. They are applying a barrier cream to the area of concern on his buttock and this is significant improved. Also using pressure reducing measures. Log of blood pressures and blood sugars reviewed and overall stable. Some concerns of sleep issues, caregiver would like to try melatonin. His medications were reviewed today and his list is now up to date. Medications Current Outpatient Medications Medication Sig sertraline (ZOLOFT) 50 mg tablet Take 50 mg by mouth every morning. XCOPRI TITRATION PACK 12.5 mg (14)- 25 mg (14) tablets in a dose pack Take by mouth once daily. Menthol-Zinc Oxide (CALMOSEPTINE) 0.44-20.6 % Apply to affected area two times a day. oxybutynin ER (DITROPAN XL) 10 mg 24 hr tablet Take 1 tablet by mouth once daily. prazosin (MINIPRESS) 1 mg cap Take 1 capsule by mouth daily at bedtime. lacosamide (VIMPAT) 150 mg tab Take 150 mg by mouth two times a day. fluticasone (FLONASE) 50 mcg/actuation nasal spray Use 2 Sprays in each nostril once daily as needed. Rinse mouth after use. simvastatin (ZOCOR) 20 mg tablet Take 1 tablet by mouth daily at bedtime. famotidine (PEPCID) 20 mg tablet Take 1 tablet by mouth once daily. (Per GI) docusate sodium (COLACE) 100 mg capsule Take 200 mg by mouth daily with breakfast. nitroglycerin (NITROLINGUAL) 400 mcg/spray spray Dissolve 1 [place] under the tongue every 5 minutes as needed. Lactobacillus rhamnosus GG (CULTURELLE ORAL) Take 1 capsule by mouth once daily. glucosamine/chondr victroia A sod (OSTEO BI-FLEX ORAL) Take by mouth once daily. aspirin, enteric coated (ECOTRIN LOW STRENGTH) 81 mg EC tablet Take 1 tablet by mouth once daily. melatonin 3 mg capsules Take 3 mg by mouth daily at bedtime. NAYZILAM 5 mg/spray (0.1 mL) nasal spray Use 1 [place] in the nose as needed for seizures lasting longer than 5 minutes. blood sugar diagnostic (BLOOD GLUCOSE TEST) test strip Test blood sugar(s) 2 times daily. Dx: Type 2 DM - Uncontrolled E11.65 Insulin: No Lancets lancets Test blood sugar(s) two times daily. Dx: E11.9. Insulin: No No current facility-administered medications for this visit. ALLERGIES Allergen Reactions Bandar Inhibitors Other: See Comments Cough, hypotension Macrobid [Nitrofura* Rash Cefdinir Rash ACTIVE PROBLEM LIST Chronic Diastolic Congestive Heart Failure ([facility]) - 03/03/2024 Focal Epilepsy (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) - 04/20/2014 Type 2 Diabetes Mellitus With Polyneuropathy ([facility]) - 02/20/2014 Comment: Chago, bilateral. Nail dystrophy. 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 Cardiovascular: Negative. OBJECTIVE BP 114/64 Pulse 66 Wt 122 lb 9.2 oz (55.6kg) SpO2 98% Physical Exam Vitals and nursing note reviewed. [...] breath sounds. Musculoskeletal: Cervical back: Neck supple. (more content not included)... [facility] 08-18-2024 History of Presen t illness Narrative SUBJECTIVE Inna Ortiz is a 69 year old male here today for a recheck. Chief Complaint Patient presents with: 2 week follow up: did have toe nail removed and is looking better HPI Inna Ortiz is a 69 year old male. He is an established patient of Eliza Zamora MD. Accompanied by sister and her significant other who are primary caregivers. HPI gathered from them. Here today for a recheck. Seen with Jasmin West on 08/06 for stage 1 pressure injury and ingrown toe nail. Seen with podiatry on 08/14 and ingrown toe nail removed. Doing well since this. They are applying a barrier cream to the area of concern on his buttock and this is significant improved. Also using pressure reducing measures. Log of blood pressures and blood sugars reviewed and overall stable. Some concerns of sleep issues, caregiver would like to try melatonin. His medications were reviewed today and his list is now up to date. Medications Current Outpatient Medications Medication Sig sertraline (ZOLOFT) 50 mg tablet Take 50 mg by mouth every morning. XCOPRI TITRATION PACK 12.5 mg (14)- 25 mg (14) tablets in a dose pack Take by mouth once daily. Menthol-Zinc Oxide (CALMOSEPTINE) 0.44-20.6 % Apply to affected area two times a day. oxybutynin ER (DITROPAN XL) 10 mg 24 hr tablet Take 1 tablet by mouth once daily. prazosin (MINIPRESS) 1 mg cap Take 1 capsule by mouth daily at bedtime. lacosamide (VIMPAT) 150 mg tab Take 150 mg by mouth two times a day. fluticasone (FLONASE) 50 mcg/actuation nasal spray Use 2 Sprays in each nostril once daily as needed. Rinse mouth after use. simvastatin (ZOCOR) 20 mg tablet Take 1 tablet by mouth daily at bedtime. famotidine (PEPCID) 20 mg tablet Take 1 tablet by mouth once daily. (Per GI) docusate sodium (COLACE) 100 mg capsule Take 200 mg by mouth daily with breakfast. nitroglycerin (NITROLINGUAL) 400 mcg/spray spray Dissolve 1 [place] under the tongue every 5 minutes as needed. Lactobacillus rhamnosus GG (CULTURELLE ORAL) Take 1 capsule by mouth once daily. glucosamine/chondr victoria A sod (OSTEO BI-FLEX ORAL) Take by mouth once daily. aspirin, enteric coated (ECOTRIN LOW STRENGTH) 81 mg EC tablet Take 1 tablet by mouth once daily. melatonin 3 mg capsules Take 3 mg by mouth daily at bedtime. NAYZILAM 5 mg/spray (0.1 mL) nasal spray Use 1 [place] in the nose as needed for seizures lasting longer than 5 minutes. blood sugar diagnostic (BLOOD GLUCOSE TEST) test strip Test blood sugar(s) 2 times daily. Dx: Type 2 DM - Uncontrolled E11.65 Insulin: No Lancets lancets Test blood sugar(s) two times daily. Dx: E11.9. Insulin: No No current facility-administered medications for this visit. ALLERGIES Allergen Reactions Bandar Inhibitors Other: See Comments Cough, hypotension Macrobid [Nitrofura* Rash Cefdinir Rash ACTIVE PROBLEM LIST Chronic Diastolic Congestive Heart Failure (Hcc) - 03/03/2024 Focal Epilepsy (Hcc) - 12/06/2022 Syncope and Collapse - 12/06/2022 Orthostatic hypotension [I95.1] - 09/04/2022 Weight Loss, Abnormal - 09/01/2021 Dysphagia - 09/01/2021 Urinary Incontinence - 05/30/2021 Gait Abnormality - 04/20/2021 Acid Indigestion - 05/19/2020 Overactive Bladder - 08/14/2018 Cardiomyopathy, Nonischemic ([facility]) - 04/20/2014 Type 2 Diabetes Mellitus With Polyneuropathy ([facility]) - 02/20/2014 Comment: Chago, bilateral. Nail dystrophy. 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 Cardiovascular: Negative. OBJECTIVE BP 114/64 Pulse 66 Wt 122 lb 9.2 oz (55.6kg) SpO2 98% Physical Exam Vitals and nursing note reviewed. [...] at baseline. Psychiatric: Attention and Perception: Attention normal. Mood and Affect: Mood normal. Behavior: Behavior is cooperative. ASSESSMENT/PLAN: 1. Pressure injury of buttock, stage 1, unspecified laterality - ICD9: 707.05, 707.21, ICD10: L89.301 (primary diagnosis) Much improved, continue pressure reducing measures and care as they are. 2. Ingrown toenail - ICD9: 703.0, ICD10: L60.0 Removed with podiatry, area well healing. 3. Sleep disturbance - ICD9: 780.50, ICD10: G47.9 Ok to try melatonin 3 or 6 mg. 4. Type 2 diabetes mellitus with polyneuropathy (HCC) - ICD9: 250.60, 357.2, ICD10: E11.42 - Controlled - Counseled on healthy diet. 5. Primary hypertension - ICD9: 401.9, ICD10: I10 - Controlled - Recommend home blood pressure monitoring, to bring results to next visit - Encouraged sodium restriction, DASH or Mediterranean diet Portions of this note have been entered by ancillary staff. I have reviewed and when necessary edited, so that they are an adequate record of my encounter with this patient Please note that parts of this document were created using voice recognition software and therefore may contain grammatical errors. Patient verbalizes understanding of instructions from today's visit and in agreement with treatment plan. Questions answered. Agrees to call the office if questions, concerns of issues with acute symptoms not improving or if they worsen. See diagnoses and orders for additional plan(s). Allergies and medications were reviewed, list was updated, and refills given if needed. Past medical, surgical, social, and family history reviewed and updated as appropriate. Encouraged proper diet & exercise as well as compliance with taking medications. Age-appropriate health preventative measures were discussed. Return if symptoms worsen or fail to improve, for Keep next scheduled appointment.. Ambar Ladd APRN-PRITESH documented in this encounter [facility] 08-14-2024 Note HNO ID: [id number] Author: CAIT BAH LPN Service: ? Author Type: LICENSED NURSE Type: Progress Notes Filed: 08/16/2024 06:46 Note Text: UNIVERSAL PROTOCOL / SAFETY CHECKLIST Procedure to be Performed: Total nail avulsion, right great toe Sign In: A Moment of CARE was completed. Appropriate PPE (Personal Protective Equipment) worn by all providers involved with the procedure. Special equipment not required. Patient/Surrogate Stated/Verified: Patient name, Date of , Relevant allergies, and The intended procedure Time Out: Relevant labs, photos, and/or imaging studies have been reviewed. Intended patient and procedure match the source document(s) (e.g. consent, HANDP, associated studies [imaging, pathology]) match the intended patient and procedure. Consent obtained and matches the intended procedure. Yes. Correct side/site has been marked and visible. Medications required for this procedure are verified. Fire risk assessed and is not applicable. Implants: are not applicable. Sign Out: Specimens not collected. All instruments, equipment, possible retained foreign bodies are accounted for. Yes. The post-procedure plan of care has been communicated to the patient or surrogate. [facility] 08-14-2024 History of Presen t illness Narrative UNIVERSAL PROTOCOL / SAFETY CHECKLIST Procedure to be Performed: Total nail avulsion, right great toe Sign In: A Moment of CARE was completed. Appropriate PPE (Personal Protective Equipment) worn by all providers involved with the procedure. Special equipment not required. Patient/Surrogate Stated/Verified: Patient name, Date of , Relevant allergies, and The intended procedure Time Out: Relevant labs, photos, and/or imaging studies have been reviewed. Intended patient and procedure match the source document(s) (e.g. consent, H&P, associated studies [imaging, pathology]) match the intended patient and procedure. Consent obtained and matches the intended procedure. Yes. Correct side/site has been marked and visible. Medications required for this procedure are verified. Fire risk assessed and is not applicable. Implants: are not applicable. Sign Out: Specimens not collected. All instruments, equipment, possible retained foreign bodies are accounted for. Yes. The post-procedure plan of care has been communicated to the patient or surrogate. Subjective Inna Ortiz is a 69-year-old male, accompanied by his legal guardian, presenting for follow-up of a persistent infection in the right great toe. Right Great Toe Infection: - Persistent redness in the right great toe, initially noted a few weeks ago. - Previously treated with doxycycline starting 07/25 and Bactrim starting 08/06, with no significant improvement. - Redness persists despite antibiotic treatment and nightly soaking. - No current drainage or significant pain reported. - Initial culture showed Staphylococcus lugdunensis. Musculoskeletal: (-) right great toe pain Skin: (+) right great toe redness, (-) right great toe drainage PAST MEDICAL HISTORY Diagnosis Date CONVULSIONS, OTHER [...] hypertension 10/10/2004 Current Outpatient Medications Medication Sig Dispense Refill sertraline (ZOLOFT) 50 mg tablet Take 50 mg by mouth every morning. XCOPRI TITRATION PACK 12.5 mg (14)- 25 mg (14) tablets in a dose pack Take by mouth once daily. Menthol-Zinc Oxide (CALMOSEPTINE) 0.44-20.6 % Apply to affected area two times a day. 113 g 1 oxybutynin ER (DITROPAN XL) 10 mg 24 hr tablet Take 1 tablet by mouth once daily. 90 tablet 3 prazosin (MINIPRESS) 1 mg cap Take 1 capsule by mouth daily at bedtime. 90 capsule 3 lacosamide (VIMPAT) 150 mg tab Take 150 mg by mouth two times a day. fluticasone (FLONASE) 50 mcg/actuation nasal spray Use 2 Sprays in each nostril once daily as needed. Rinse mouth after use. 1 Each 5 simvastatin (ZOCOR) 20 mg tablet Take 1 tablet by mouth daily at bedtime. 90 tablet 3 blood sugar diagnostic (BLOOD GLUCOSE TEST) test strip Test blood sugar(s) 2 times daily. Dx: Type 2 DM - Uncontrolled E11.65 Insulin: No 200 Strip 3 famotidine (PEPCID) 20 mg tablet Take 1 tablet by mouth once daily. (Per GI) 90 tablet 2 docusate sodium (COLACE) 100 mg capsule Take 200 mg by mouth daily with breakfast. nitroglycerin (NITROLINGUAL) 400 mcg/spray spray Dissolve 1 [place] under the tongue every 5 minutes as needed. 12 g 1 Lactobacillus rhamnosus GG (CULTURELLE ORAL) Take 1 capsule by mouth once daily. glucosamine/chondr victoria A sod (OSTEO BI-FLEX ORAL) Take by mouth once daily. Lancets lancets Test blood sugar(s) two times daily. Dx: E11.9. Insulin: No 100 Each 11 aspirin, enteric coated (ECOTRIN LOW STRENGTH) 81 mg EC tablet Take 1 tablet by mouth once daily. 0 doxycycline hyclate (VIBRAMYCIN) 100 mg capsule Take 1 capsule by mouth two times a day. (Patient not taking: Reported on 08/14/2024) 14 capsule 0 NAYZILAM 5 mg/spray (0.1 mL) nasal spray Use 1 [place] in the nose as needed for seizures lasting longer than 5 minutes. No current facility-administered medications for this visit. Family History Problem Relation Age of Onset Coronary Artery Disease Father Heart Father [place] AT AGE 63 COPD Sister Asthma Sister No Known Problems Maternal Grandmother No Known Problems Maternal Grandfather No Known Problems Paternal Grandmother No Known Problems Paternal Grandfather Colon Cancer Other Cancer Other LUNG Diabetes Other Emphysema Other Objective There were no vitals taken for this visit. - Cardiovascular: DP and PT pulses palpable on the right foot; capillary refill time <5 seconds. - Skin: Skin temperature warm to cool. - Musculoskeletal: - Right Great Toe: - Slight swelling and erythema noted at the proximal medial nail border, extending to the central lateral border; no drainage observed. - Erythema persists with elevation. Labs: - Wound Culture: Staphylococcus lugdunensis identified Tests: Imaging: Assessment & Plan 1. Ingrowing toenail of right foot (L60.0) - Persistent erythema and slight swelling noted at the proximal medial nail border extending to the central lateral border; no drainage observed. Erythema persists with elevation, indicating possible underlying infection. - Previous wound culture showed Staphylococcus lugdunensis, a superficial skin bacterium. - Completed two courses of antibiotics: doxycycline initiated on July 25 and Bactrim initiated on August 06 by Jasmin West NP, with continued erythema. - Discussed and agreed upon total nail avulsion of the right great toe to help with resolution of infection. - Procedure involves local anesthesia with a needle; informed consent obtained from legal guardian, Angie. - Post-procedure care includes daily soaking in Epsom salts, application of Neosporin, and covering with a Band-Aid. Advised continuation of normal activities with Band-Aid protection for a couple of weeks. - Discussed risks including infection, bleeding, nail deformity, slow wound healing, and potential loss of the toe if untreated. - Patient and guardian understand and agree with the treatment plan. Discussed risks of toenail procedure not limited to infection, pain, swelling, bleeding, painful scarring, recurrence, need for revised procedure. Patient consented to proceed. Patient was properly identified by name and procedure. The right hallux was then injected with 3 cc of 1% lidocaine plain. The toe was then prepped and draped in the usual aseptic technique. A digital tournicot was applied to the toe. The entire nail border was then freed and removed. Careful inspection was performed to assure no remaining spicule present. Avulsion was performed. Wound culture performed. Sterile dressing was then applied consisting of amerigel, guaze, manish and coban. Tournicot was removed and hyperemic response was noted. Patient tolerated well. Patient will f/u in 2 weeks. Recording using [employer] software for draft documentation of the visit was discussed with the patient/authorized passenger representative; all questions welcomed and answered. Patient/authorized passenger representative agreed to proceed Claudette Branch DPM Patient presents with: Right Foot - Established Patient, Follow Up, Ingrown Nail Patient presents for follow up ingrown toenail to the right hallux. Was started on antibiotics 08/06/24 but has since finished them and still experiencing some redness to the toe. Some redness to the medial nailbed and toe tip. SALVADOR 07/25/24 documented in this encounter [facility] 08-14-2024 Instructions Cait Bah LPN - 08/14/2024 2:37 PM EDT Post-Op Nail Instructions Minimize activity until the anesthesia wears off (about 2-8 hours). Increase activity to tolerance Remove bandage tomorrow Soak affected toe/foot in epsom salts for 15-20 minutes twice daily After soaking, apply antibiotic ointment (OTC Neosporin) to affected toe and re bandage OTC Ibuprofen if having pain, provided you have no allergies or intolerance to NSAIDS Mild drainage, redness, and blood is expected, but if you expeirence severe pain, increase in drainage, swelling, or red streaking please contact our office immediately Feel free to contact office as well if you have any questions/concerns [phone], ask for Podiatry Nurse documented in this encounter [facility] 08-14-2024 Note HNO ID: [id number] Author: CLAUDETTE BRANCH, ? Service: ? Author Type: Physician Type: Progress Notes Filed: 08/16/2024 06:46 Note Text: Subjective Inna Ortiz is a 69-year-old male, accompanied by his legal guardian, presenting for follow-up of a persistent infection in the right great toe. Right Great Toe Infection: - Persistent redness in the right great toe, initially noted a few weeks ago. - Previously treated with doxycycline starting 07/25 and Bactrim starting 08/06, with no significant improvement. - Redness persists despite antibiotic treatment and nightly soaking. - No current drainage or significant pain reported. - Initial culture showed Staphylococcus lugdunensis. Musculoskeletal: (-) right great toe pain Skin: (+) right great toe redness, (-) right great toe drainage PAST MEDICAL HISTORY Diagnosis Date CONVULSIONS, OTHER [...] hypertension 10/10/2004 Current Outpatient Medications Medication Sig Dispense Refill sertraline (ZOLOFT) 50 mg tablet Take 50 mg by mouth every morning. XCOPRI TITRATION PACK 12.5 mg (14)- 25 mg (14) tablets in a dose pack Take by mouth once daily. Menthol-Zinc Oxide (CALMOSEPTINE) 0.44-20.6 % Apply to affected area two times a day. 113 g 1 oxybutynin ER (DITROPAN XL) 10 mg 24 hr tablet Take 1 tablet by mouth once daily. 90 tablet 3 prazosin (MINIPRESS) 1 mg cap Take 1 capsule by mouth daily at bedtime. 90 capsule 3 lacosamide (VIMPAT) 150 mg tab Take 150 mg by mouth two times a day. fluticasone (FLONASE) 50 mcg/actuation nasal spray Use 2 Sprays in each nostril once daily as needed. Rinse mouth after use. 1 Each 5 simvastatin (ZOCOR) 20 mg tablet Take 1 tablet by mouth daily at bedtime. 90 tablet 3 blood sugar diagnostic (BLOOD GLUCOSE TEST) test strip Test blood sugar(s) 2 times daily. Dx: Type 2 DM - Uncontrolled E11.65 Insulin: No 200 Strip 3 famotidine (PEPCID) 20 mg tablet Take 1 tablet by mouth once daily. (Per GI) 90 tablet 2 docusate sodium (COLACE) 100 mg capsule Take 200 mg by mouth daily with breakfast. nitroglycerin (NITROLINGUAL) 400 mcg/spray spray Dissolve 1 [place] under the tongue every 5 minutes as needed. 12 g 1 Lactobacillus rhamnosus GG (CULTURELLE ORAL) Take 1 capsule by mouth once daily. glucosamine/chondr victoria A sod (OSTEO BI-FLEX ORAL) Take by mouth once daily. Lancets lancets Test blood sugar(s) two times daily. Dx: E11.9. Insulin: No 100 Each 11 aspirin, enteric coated (ECOTRIN LOW STRENGTH) 81 mg EC tablet Take 1 tablet by mouth once daily. 0 doxycycline hyclate (VIBRAMYCIN) 100 mg capsule Take 1 capsule by mouth two times a day. (Patient not taking: Reported on 08/14/2024) 14 capsule 0 NAYZILAM 5 mg/spray (0.1 mL) nasal spray Use 1 [place] in the nose as needed for seizures lasting longer than 5 minutes. No current facility-administered medications for this visit. Family History Problem Relation Age of Onset Coronary Artery Disease Father Heart Father [place] AT AGE 63 COPD Sister Asthma Sister No Known Problems Maternal Grandmother No Known Problems Maternal Grandfather No Known Problems Paternal Grandmother No Known Problems Paternal Grandfather Colon Cancer Other Cancer Other LUNG Diabetes Other Emphysema Other Objective There were no vitals taken for this visit. - Cardiovascular: DP and PT pulses palpable on the right foot; capillary refill time <5 seconds. - Skin: Skin temperature warm to cool. - Musculoskeletal: - Right Great Toe: - Slight swelling and erythema noted at the proximal medial nail border, extending to the central lateral border; no drainage observed. - Erythema persists with elevation. Labs: - Wound Culture: Staphylococcus lugdunensis identified Tests: Imaging: Assessment AND Plan 1. Ingrowing toenail of right foot (L60.0) - Persistent erythema and slight swelling noted at the proximal medial nail border extending to the central lateral border; no drainage observed. Erythema persists with elevation, indicating possible underlying infection. - Previous wound culture showed Staphylococcus lugdunensis, a superficial skin bacterium. - Completed two courses of antibiotics: doxycycline initiated on July 25 and Bactrim initiated on August 06 by Jasmin West NP, with continued erythema. - Discussed and agreed upon total nail avulsion of the right great toe to help with resolution of infection. - Procedure involves local anesthesia (more content not included)... [facility] 08-14-2024 Note HNO ID: [id number] Author: ADRY RICCI RN Service: ? Author Type: Registered Nurse Type: Progress Notes Filed: 08/16/2024 06:46 Note Text: Patient presents with: Right Foot - Established Patient, Follow Up, Ingrown Nail Patient presents for follow up ingrown toenail to the right hallux. Was started on antibiotics 08/06/24 but has since finished them and still experiencing some redness to the toe. Some redness to the medial nailbed and toe tip. SALVADOR 07/25/24 [facility] 08-12-2024 Telephone encounter Note Patient scheduled for this [facility] 08-12-2024 Miscellaneous Notes Patient scheduled for this Patients sister calling in wondering if patient can be seen sooner due to right big toe still being red and swollen. Patients sister states they say pcps office on Sunday and they put him on bactrim. Lindsey Medina LPN documented in this encounter [facility] 08-11-2024 Telephone encounter Note Patients sister calling in wondering if patient can be seen sooner due to right big toe still being red and swollen. Patients sister states they say pcps office on Sunday and they put him on bactrim. Lindsey Medina LPN [facility] 08-07-2024 Note HNO ID: [id number] Author: JASMIN WEST APRN.RELIEF WORKER Service: ? Author Type: Nurse Practitioner Type: Progress Notes Filed: 08/07/2024 16:21 Note Text: CC: Patient presents with: Wound Evaluation: Possible pressure wound on buttocks HPI Inna Ortiz is a 69 year old male who presents today for concerns for possible pressure injury. Recording using [employer] software for draft documentation of the visit was discussed with the patient/authorized passenger representative; all questions welcomed and answered. Patient/authorized passenger representative agreed to proceed Right Great Toe Infection: - Recent infection in the right great toenail, described as red. - Culture performed by Dr. Branch approximately one week ago. - Treated with doxycycline and an ointment for one week; also soaking in Epsom salt. - Toenail appears pink in the morning and more red in the evening. - Concerns about potential interference with gait due to a hammertoe on the middle toe. - Next follow-up with Dr. Branch in three months. Denies fever, chill, drainage, or red streaking Pressure Ulcer Concerns: - Redness observed on the buttocks, described as really, really red. Noted by caregiver at day program - Use of a donut cushion to alleviate pressure. - Inna's buttocks appear tense, possibly due to discomfort. - Redness also noted on the side of the leg. - Inna frequently urinates due to BPH, requiring frequent movement. - Uses Depends at night; skin often soaked in the morning. - Inna sleeps on his side, alternating left and right positions. - No creams or ointments currently used on the skin. - sister is caregiver at home. - patient does get up and walk to bathroom but prefers to stay seated in chair REVIEW OF SYSTEMS See HPI PAST MEDICAL HISTORY Diagnosis Date CONVULSIONS, OTHER [...] Inhibitors, Macrobid [Nitrofurantoin Monohyd/M-Cryst], and Cefdinir MEDICATIONS sertraline (ZOLOFT) 50 mg tablet Take 50 mg by mouth every morning. XCOPRI TITRATION PACK 12.5 mg (14)- 25 mg (14) tablets in a dose pack Take by mouth once daily. sulfamethoxazole-trimethoprim (BACTRIM DS) 800-160 mg per tablet Take 1 tablet by mouth two times a day for 7 days. Menthol-Zinc Oxide (CALMOSEPTINE) 0.44-20.6 % Apply to affected area two times a day. doxycycline hyclate (VIBRAMYCIN) 100 mg capsule Take 1 capsule by mouth two times a day. oxybutynin ER (DITROPAN XL) 10 mg 24 hr tablet Take 1 tablet by mouth once daily. prazosin (MINIPRESS) 1 mg cap Take 1 capsule by mouth daily at bedtime. lacosamide (VIMPAT) 150 mg tab Take 150 mg by mouth two times a day. fluticasone (FLONASE) 50 mcg/actuation nasal spray Use 2 Sprays in each nostril once daily as needed. Rinse mouth after use. simvastatin (ZOCOR) 20 mg tablet Take 1 tablet by mouth daily at bedtime. NAYZILAM 5 mg/spray (0.1 mL) nasal spray Use 1 [place] in the nose as needed for seizures lasting longer than 5 minutes. blood sugar diagnostic (BLOOD GLUCOSE TEST) test strip Test blood sugar(s) 2 times daily. Dx: Type 2 DM - Uncontrolled E11.65 Insulin: No famotidine (PEPCID) 20 mg tablet Take 1 tablet by mouth once daily. (Per GI) docusate sodium (COLACE) 100 mg capsule Take 200 mg by mouth daily with breakfast. nitroglycerin (NITROLINGUAL) 400 mcg/spray spray Dissolve 1 [place] under the tongue every 5 minutes as needed. Lactobacillus rhamnosus GG (CULTURELLE ORAL) Take 1 [...] Onset Coronary Artery Disease Father Heart Father [place] AT AGE 63 COPD Sister Asthma Sister No Known Problems Maternal Grandmother No Known Problems Maternal Grandfather No Known Problems Paternal Grandmother No Known Problems Paternal Grandfather Colon Cancer Other Cancer Other LUNG Diabetes Other Emphysema Other Social History Tobacco Use Smoking status: Never Smokeless tobacco: Never Vaping Use Vaping status: Never Used Substance Use Topics Alcohol (more content not included)... [facility] 08-07-2024 History of Presen t illness Narrative CC: Patient presents with: Wound Evaluation: Possible pressure wound on buttocks SHAWNA Ortiz is a 69 year old male who presents today for concerns for possible pressure injury. Recording using [employer] software for draft documentation of the visit was discussed with the patient/authorized passenger representative; all questions welcomed and answered. Patient/authorized passenger representative agreed to proceed Right Great Toe Infection: - Recent infection in the right great toenail, described as red. - Culture performed by Dr. Branch approximately one week ago. - Treated with doxycycline and an ointment for one week; also soaking in Epsom salt. - Toenail appears pink in the morning and more red in the evening. - Concerns about potential interference with gait due to a hammertoe on the middle toe. - Next follow-up with Dr. Branch in three months. Denies fever, chill, drainage, or red streaking Pressure Ulcer Concerns: - Redness observed on the buttocks, described as really, really red. Noted by caregiver at day program - Use of a donut cushion to alleviate pressure. - Inna's buttocks appear tense, possibly due to discomfort. - Redness also noted on the side of the leg. - Inna frequently urinates due to BPH, requiring frequent movement. - Uses Depends at night; skin often soaked in the morning. - Inna sleeps on his side, alternating left and right positions. - No creams or ointments currently used on the skin. - sister is caregiver at home. - patient does get up and walk to bathroom but prefers to stay seated in chair REVIEW OF SYSTEMS See HPI PAST MEDICAL HISTORY Diagnosis Date CONVULSIONS, OTHER [...] Inhibitors, Macrobid [Nitrofurantoin Monohyd/M-Cryst], and Cefdinir MEDICATIONS sertraline (ZOLOFT) 50 mg tablet Take 50 mg by mouth every morning. XCOPRI TITRATION PACK 12.5 mg (14)- 25 mg (14) tablets in a dose pack Take by mouth once daily. sulfamethoxazole-trimethoprim (BACTRIM DS) 800-160 mg per tablet Take 1 tablet by mouth two times a day for 7 days. Menthol-Zinc Oxide (CALMOSEPTINE) 0.44-20.6 % Apply to affected area two times a day. doxycycline hyclate (VIBRAMYCIN) 100 mg capsule Take 1 capsule by mouth two times a day. oxybutynin ER (DITROPAN XL) 10 mg 24 hr tablet Take 1 tablet by mouth once daily. prazosin (MINIPRESS) 1 mg cap Take 1 capsule by mouth daily at bedtime. lacosamide (VIMPAT) 150 mg tab Take 150 mg by mouth two times a day. fluticasone (FLONASE) 50 mcg/actuation nasal spray Use 2 Sprays in each nostril once daily as needed. Rinse mouth after use. simvastatin (ZOCOR) 20 mg tablet Take 1 tablet by mouth daily at bedtime. NAYZILAM 5 mg/spray (0.1 mL) nasal spray Use 1 [place] in the nose as needed for seizures lasting longer than 5 minutes. blood sugar diagnostic (BLOOD GLUCOSE TEST) test strip Test blood sugar(s) 2 times daily. Dx: Type 2 DM - Uncontrolled E11.65 Insulin: No famotidine (PEPCID) 20 mg tablet Take 1 tablet by mouth once daily. (Per GI) docusate sodium (COLACE) 100 mg capsule Take 200 mg by mouth daily with breakfast. nitroglycerin (NITROLINGUAL) 400 mcg/spray spray Dissolve 1 [place] under the tongue every 5 minutes as needed. Lactobacillus rhamnosus GG (CULTURELLE ORAL) Take 1 [...] Onset Coronary Artery Disease Father Heart Father [place] AT AGE 63 COPD Sister Asthma Sister No Known Problems Maternal Grandmother No Known Problems Maternal Grandfather No Known Problems Paternal Grandmother No Known Problems Paternal Grandfather Colon Cancer Other Cancer Other LUNG Diabetes Other Emphysema Other Social History Tobacco Use Smoking status: Never Smokeless tobacco: Never Vaping Use Vaping status: Never Used Substance Use Topics Alcohol use: No Drug use: No PHYSICAL EXAM BP 122/68 Pulse 72 Resp 16 Wt 55.3 kg (122 lb) SpO2 99% BMI 18.02 kg/m General Appearance: well appearing, in no acute distress, alert Skin: reddened area to lower left gluteal with small part un blanchable. No purple areas fluctuation, open areas or tenderness. No other reddened areas or concerns noted. Lungs: Lungs clear to auscultation. No wheezing, rhonchi, rales. Heart: RRR without murmur, gallop, or rubs. No ectopy BLE Extremities: No deformities, edema, skin discoloration, clubbing or cyanosis. Good capillary refill. Right great toe reddened and small amount of edema around nail bed. No drainage or open areas noted. Health maintenance reviewed with patient: Depression Screening Never done Anxiety Screening Never done Shingrix Vaccine(1 of 2) Never done RSV Vaccine(1 - Risk 60-74 years 1-dose series) Never done DTaP,Tdap,Td Vaccine(3 - Td or Tdap) due on 10/30/2019 Covid-19 Vaccine(4 - season) due on 10/28/2023 Advance Directive Discussion Never done Medicare Advantage Annual Wellness Visit Never done Diabetic Foot Exam due on 09/30/2024 LDL Cholesterol due on 11/09/2024 HbA1C due on 11/21/2024 Dilated Retinal Exam due on 04/21/2025 Urine Albumin:Creatinine Ratio due on 05/27/2025 Annual PCP Team Chronic Disease Visit due on 08/06/2025 Prostate Cancer Screening Discussion due on 05/21/2029 Influenza Vaccine Completed Hepatitis C Screening Completed Pneumococcal Vaccine: 50+ Completed Colorectal Cancer Screening Discontinued DATA REVIEWED: Most recent labs Labs: - Toe culture: Positive for infection - Renal function test: Within normal limits Assessment/Plan 1. Pressure injury of buttock, stage 1, unspecified laterality (L89.301) - Erythema noted on the buttocks, consistent with stage 1 pressure injury; no underlying soft tissue damage or open wounds observed. - Educated on the importance of pressure relief to prevent progression of the injury. Recommended alternating pressure by using pillows or towels to shift weight every 1-2 hours. - Advised against prolonged use of donut cushions as they can also cause pressure. - Prescribed calmoseptine cream to be applied twice daily to the coccyx area to reduce friction and protect the skin. - Discussed the importance of keeping the skin dry to prevent further breakdown. - Referral to psychiatric social worker supervisor Yaz for additional resources and support, including potential seating pads to alleviate pressure. - Follow-up in 2 weeks to monitor the condition or earlier if needed 2. Ingrown toenail (L60.0) - Persistent erythema noted on the right great toenail despite previous treatment with doxycycline and topical ointment. - Initiated Bactrim therapy; advised monitoring for potential side effects, including diarrhea. - Continued Epsom salt soaks as previously instructed. - Advised to maintain current foot care practices and monitor for any signs of worsening infection. - Follow-up with Dr. Branch as discussed Prescription instructions reviewed with patient as applicable. Potential red flag symptoms discussed with the patient. Reviewed appropriate action plan to take if red flag symptoms occur. Patient agreeable to treatment plan. Jasmin West APRN.CNP documented in this encounter [facility] 08-07-2024 Telephone encounter Note Patient sister Angie reports that they found a gel cushion in their home that patient mom used to use. Angie said it it an egg sitter cushion that helps with cushion and cooling. Angie notes that patient can use this cushion. Sw also asked Angie if patient has AAA services through [employer]. Angie noted that they have an aide come in periodically but not sure what service center aide is through. Sw noted if patient and family need any more assistance to feel free to reach out to this SW. Angie thanked for the call. [facility] 08-07-2024 Miscellaneous Notes Patient sister Angie reports that they found a gel cushion in their home that patient mom used to use. Angie said it it an egg sitter cushion that helps with cushion and cooling. Angie notes that patient can use this cushion. Sw also asked Angie if patient has AAA services through [employer]. Angie noted that they have an aide come in periodically but not sure what service center aide is through. Ximena noted if patient and family need any more assistance to feel free to reach out to this SW. Angie thanked for the call. documented in this encounter [facility] 08-06-2024 Instructions Jasmin West APRN.CNP - 08/06/2024 3:54 PM EDT - Apply the calmoceptine cream sent to your pharmacy to the red area on your lower backside (coccyx) twice a day to protect your skin and reduce friction. - Take the trimethoprim-sulfamethoxazole (Bactrim) antibiotic as prescribed for your toe infection; watch for diarrhea and continue your Metamucil and mineral oil unless diarrhea develops. - Continue daily Epsom salt soaks (10 minutes) for your big toe, and use the toe cushioning patches on your hammertoe; wear comfortable, well-fitting shoes. - Every 1-2 hours, shift your position by folding a towel or using a pillow under one hip and then the other, and stand or walk briefly if you can. - Keep your skin clean and pat dry after any incontinence episodes to prevent moisture breakdown. documented in this encounter [facility] 07-25-2024 Note HNO ID: [id number] Author: CLAUDETTE BRANCH, ? Service: ? Author Type: Physician Type: Progress Notes Filed: 07/25/2024 22:37 Note Text: Last saw pcp: 05/21/24 Subjective: Patient presents to clinic c/o painful toenails. They state that the nails are especially painful with shoe gear and pressure. Patient states that nails 1-5 b/l are painful. Patient admits to being diabetic. No other pedal complaints at this time. Patient states no change in medications or medical history since last visit. Objective: Patient presents to clinic ambulating in sneakers Vasc: DP and PT pulses are palpable bilateral. CFT is less than 5 seconds bilateral. Skin temperature is warm to cool proximal to distal bilateral. There is no edema or varicosities noted. Neuro: Protective sensation is intact to the foot and toes when tested with the 5.07 SWM bilateral. Vibratory sensation is decreased at the hallux IPJ bilateral. The hallux is downgoing bilateral. Derm: Nails 1-5 b/l are painful, discolored-yellow, thick, crumbly, dystrophic and with subungal debris. Right hallux proximal medial nail fold has slight redness. Skin is of normal turgor, texture and hair growth is present bilateral. There are no hyperkeratosis, ulcerations, scars, verruca or other lesions noted. Ortho: Muscle strength is 5/5 for all pedal groups tested. Ankle joint DF is full with the knee extended with no pain or crepitus noted. 1st MPJ ROM is full bilateral. Assessment: (B35.1) Onychomycosis (primary encounter diagnosis) (M79.675) Pain in toe of left foot (M79.674) Pain in toe of right foot (E11.42) Type 2 diabetes mellitus with polyneuropathy (HCC) (L60.0) Ingrowing toenail of right foot Plan: Patient was seen and evaluated. Nails 1-5 bilateral were debrided in length and thickness. Discussed slight redness of right hallux. Discussed possible ingrowing nail of proximal nail fold. Will place patient on doxycycline. Discussed nail avulsion. Patient sister has elected to hold on removal. I will have patient soak the toe in soap and water daily. If redness fails to improve, consider follow-up next week for nail removal. Patient was instructed on the continued importance of diabetic foot care along with proper diet and keeping their blood sugar under control to prevent complications. Patient is to RTC in 3-4 months. Claudette Branch DPM [facility] 07-25-2024 History of Presen t illness Narrative Last saw pcp: 05/21/24 Subjective: Patient presents to clinic c/o painful toenails. They state that the nails are especially painful with shoe gear and pressure. Patient states that nails 1-5 b/l are painful. Patient admits to being diabetic. No other pedal complaints at this time. Patient states no change in medications or medical history since last visit. Objective: Patient presents to clinic ambulating in [facility] Vasc: DP and PT pulses are palpable bilateral. CFT is less than 5 seconds bilateral. Skin temperature is warm to cool proximal to distal bilateral. There is no edema or varicosities noted. Neuro: Protective sensation is intact to the foot and toes when tested with the 5.07 SWM bilateral. Vibratory sensation is decreased at the hallux IPJ bilateral. The hallux is downgoing bilateral. Derm: Nails 1-5 b/l are painful, discolored-yellow, thick, crumbly, dystrophic and with subungal debris. Right hallux proximal medial nail fold has slight redness. Skin is of normal turgor, texture and hair growth is present bilateral. There are no hyperkeratosis, ulcerations, scars, verruca or other lesions noted. Ortho: Muscle strength is 5/5 for all pedal groups tested. Ankle joint DF is full with the knee extended with no pain or crepitus noted. 1st MPJ ROM is full bilateral. Assessment: (B35.1) Onychomycosis (primary encounter diagnosis) (M79.675) Pain in toe of left foot (M79.674) Pain in toe of right foot (E11.42) Type 2 diabetes mellitus with polyneuropathy (HCC) (L60.0) Ingrowing toenail of right foot Plan: Patient was seen and evaluated. Nails 1-5 bilateral were debrided in length and thickness. Discussed slight redness of right hallux. Discussed possible ingrowing nail of proximal nail fold. Will place patient on doxycycline. Discussed nail avulsion. Patient sister has elected to hold on removal. I will have patient soak the toe in soap and water daily. If redness fails to improve, consider follow-up next week for nail removal. Patient was instructed on the continued importance of diabetic foot care along with proper diet and keeping their blood sugar under control to prevent complications. Patient is to RTC in 3-4 months. Claudette Branch DPM AMB ROOMING INTAKE FLOWSHEET DATA Pain Pain Level: 6 Pain Location: Back-Upper Description: Aching Duration Amount of Time: 10 Duration Units: Minutes Frequency: Intermittent Intervention/Comfort measure: Other: See comment Comments: Arthritis cream Patient presents with: Left Foot - Established Patient, Follow Up, Diabetic Foot Check Right Foot - Established Patient, Follow Up, Diabetic Foot Check Cait Bah LPN documented in this encounter [facility] 07-25-2024 Instructions Claudette Branch - 07/25/2024 2:50 PM EDT Diabetes Foot Care Instructions When you have diabetes, proper foot care is very important. Poor foot care may lead to amputation of a foot or leg. As a person with diabetes, you are more vulnerable to foot problems, because diabetes can damage your nerves and reduce blood flow to your feet. Here are some diabetes foot care tips to follow: Wash and Dry Your Feet Daily Use mild soaps Use warm water Pat your skin dry; do not rub. Thoroughly dry your feet. After washing, use lotion on your feet to prevent cracking. Do not put lotion between your toes. Examine Your Feet Each Day Check the tops and bottoms of your feet. Have someone else look at your feet if you cannot see them. Check for dry, cracked skin. Look for blisters, cuts, scratches, or other sores. Check for redness, increased warmth, or tenderness when touching any area of your feet. Check for ingrown toenails, corns, and calluses. If you get a blister or sore from your shoes, do not pop it. Apply a bandage and wear a different pair of shoes. Take Care of Your Toenails Cut toenails after bathing, when they are soft. Cut toenails straight across and smooth with a nail file. Avoid cutting into the corners of toes. Do not cut cuticles. If you have neuropathy (or decreased sensation in your feet) a lens dotter should always cut your toenails. Be Careful When Exercising Walk and exercise in comfortable shoes. Do not exercise when you have open sores on your feet. Protect Your Feet With Shoes and Socks Never go barefoot. Always protect your feet by wearing shoes or hard-soled slippers or footwear. Avoid shoes with high heels and pointed toes. Avoid shoes that expose your toes or heels (such as open-toed shoes or sandals). These types of shoes increase your risk for injury and potential infections. Try on new footwear with the type of socks you usually wear. Do not wear new shoes for more than an hour at a time. Change your socks daily. Look and feel inside your shoes before putting them on to make sure there are no foreign objects or rough areas. Avoid tight socks. Wear natural-fiber socks (cotton, wool, or a cotton-wool blend). Wear special shoes if your health care provider recommends them. Wear shoes/boots that will protect your feet from various weather conditions (cold, moisture, etc.). Make sure your shoes fit properly. If you have neuropathy (nerve damage), you may not notice that your shoes are too tight. Perform the footwear test described below. Footwear Test Use this simple test to see if your shoes fit correctly: Stand on a piece of paper. (Make sure you are standing and not sitting, because your foot changes shape when you stand.) Trace the outline of your foot. Trace the outline of your shoe. Compare the tracings: Is the shoe too narrow? Is your foot crammed into the shoe? The shoe should be at least 1/2 inch longer than your longest toe and as wide as your foot. Proper Shoe Choices The following types of shoes are best for people with diabetes Closed toes and heels Leather uppers without a seam inside At least 1/2 inch extra space at the end of your longest toe Inside of shoe should be soft with no rough areas Outer sole should be made of stiff material Shoes should be at least as wide as your feet Tips for Foot Care in Diabetes Don't wait to treat a minor foot problem if you have diabetes. Follow your health care provider's guidelines and first aid guidelines. Report foot injuries and infections to your health care provider immediately. Check water temperature with your elbow, not your foot. Do not use a heating pad on your feet. Do not cross your legs. Do not self-treat your corns, calluses, or other foot problems. Go to your health care provider or lens dotter to treat these conditions. Regarding his right great toe: Soak the toe in soap and water or epsom salts daily Take doxycycline twice daily . Be careful with sun exposure If redness fails to improve or gets worse, call the office immediately and we can bring him in next week for toenail removal. documented in this encounter [facility] 07-25-2024 Note HNO ID: [id number] Author: CAIT BAH LPN Service: ? Author Type: LICENSED NURSE Type: Progress Notes Filed: 07/25/2024 22:37 Note Text: AMB ROOMING INTAKE FLOWSHEET DATA Pain Pain Level: 6 Pain Location: Back-Upper Description: Aching Duration Amount of Time: 10 Duration Units: Minutes Frequency: Intermittent Intervention/Comfort measure: Other: See comment Comments: Arthritis cream Patient presents with: Left Foot - Established Patient, Follow Up, Diabetic Foot Check Right Foot - Established Patient, Follow Up, Diabetic Foot Check Cait Bah LPN [facility] 07-23-2024 Telephone encounter Note Prescription Refill Information The patient has been identified by name and date of : Yes Caregiver verified no other encounters exist for this prescription request: Yes Caregiver confirmed with patient/requestor that no other refills are due, in the near future, with this provider at this time: Yes The last office visit in the department: 05-21-24 Does the patient have a future office visit with this provider/department: Yes Requested Prescriptions Pending Prescriptions Disp Refills oxybutynin ER (DITROPAN XL) 10 mg 24 hr tablet 90 tablet 3 Sig: Take 1 tablet by mouth once daily. Chrissy Newton July 23, 2024 12:02 PM [facility] 07-23-2024 Miscellaneous Notes Prescription Refill Information The patient has been identified by name and date of : Yes Caregiver verified no other encounters exist for this prescription request: Yes Caregiver confirmed with patient/requestor that no other refills are due, in the near future, with this provider at this time: Yes The last office visit in the department: 05-21-24 Does the patient have a future office visit with this provider/department: Yes Requested Prescriptions Pending Prescriptions Disp Refills oxybutynin ER (DITROPAN XL) 10 mg 24 hr tablet 90 tablet 3 Sig: Take 1 tablet by mouth once daily. Chrissy Newton July 23, 2024 12:02 PM documented in this encounter [facility] 05-21-2024 Note HNO ID: [id number] Author: AMBAR LADD APRN.RELIEF WORKER Service: ? Author Type: Nurse Practitioner Type: Progress Notes Filed: 05/21/2024 14:53 Note Text: DAVID Ortiz is a 69 year old male here today for a check up on his medical problems. Chief Complaint Patient presents with: F/U 6 months: more fatigue, increase incontinence, blood sugars and blood pressure is elevated HPI Inna Ortiz is a 69 year old male. Pt presents with family and sister who is caregiver. Pt is here today for multiple concerns. Sister keeps daily diary of blood pressure and blood glucose. She has noted that his BP seems to be more elelvated , for him and blood sugars seem to be on the rise. Highest recorded fasting BS 166. With BP 115/70( he is usually under 100 SBP). He also seems to be sleeping more often and less verbal then in the past. He also seems to be more incontinent then normal. Using 4-5 briefs in a day , whereas usually only keeping one on for accidents. She also is concerned as his seizures seem to be more frequent, 1-2 a month where he usually would go a few months in between prior. She notes changing in caretakers lately may play a role and unsure if they are paying as close attention to his needs as they do and has had some inconsistent caregivers. He does have chronic constipation which they have seen GI for and added mineral oil. Follows with neurology who had increased his dose of Vimpat in March. Otherwise not other new medications. His medications were reviewed today and his list is now up to date. He is compliant on taking his medications: Yes He is tolerating his medication(s) without side effects: Yes He is following an appropriate diet for his medical problems: Yes He is getting some exercise in? N/A He has visited another health care provider since being seen last? :Yes He has had a visit to the emergency department or hospital since being seen last? No, Medications Current Outpatient Medications Medication Sig prazosin (MINIPRESS) 1 mg cap Take 1 capsule by mouth daily at bedtime. lacosamide (VIMPAT) 50 mg (14)- 100 mg (14) DsPk Take 100 mg by mouth two times a day. fluticasone (FLONASE) 50 mcg/actuation nasal spray Use 2 Sprays in each nostril once daily as needed. Rinse mouth after use. simvastatin (ZOCOR) 20 mg tablet Take 1 tablet by mouth daily at bedtime. NAYZILAM 5 mg/spray (0.1 mL) nasal spray Use 1 [place] in the nose as needed for seizures lasting longer than 5 minutes. blood sugar diagnostic (BLOOD GLUCOSE TEST) test [...] 200 mg by mouth daily with breakfast. nitroglycerin (NITROLINGUAL) 400 mcg/spray spray Dissolve 1 [place] under the tongue every 5 minutes as needed. Lactobacillus rhamnosus GG (CULTURELLE ORAL) Take 1 [...] Cough, hypotension Macrobid [Nitrofura* Rash Cefdinir Rash ACTIVE PROBLEM LIST Chronic Diastolic Congestive Heart Failure (Hcc) - 03/03/2024 Focal Epilepsy (Hcc) - 12/06/2022 Syncope and Collapse - 12/06/2022 Orthostatic hypotension [I95.1] - 09/04/2022 Weight Loss, Abnormal - 09/01/2021 Dysphagia - 09/01/2021 Urinary Incontinence - 05/30/2021 Gait Abnormality - 04/20/2021 Acid Indigestion - 05/19/2020 Overactive Bladder - 08/14/2018 Cardiomyopathy, Nonischemic (Hcc) - 04/20/2014 Type 2 Diabetes Mellitus With Polyneuropathy ([place]) - 02/20/2014 Comment: [place], bilateral. Nail dystrophy. 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 Negative for appetite change, chills, diaphoresis and fever. HENT: Negative. Respiratory: Negative. Cardiovascular: Negative. Gastrointestinal: Negative. Genitourinary: Positive for dysuria. Neurological: Negative. All other systems reviewed and are negative. OBJECTIVE BP 138/78 Pulse 62 Temp (Src) 98.2 (Temporal) Wt 120 lb 5.9 oz (54.6kg) SpO2 100% Physical Exam Vitals and nursing note reviewed. (more content not included)... [facility] 05-21-2024 History of Presen t illness Narrative SUBJECTIVE Inna Ortiz is a 69 year old male here today for a check up on his medical problems. Chief Complaint Patient presents with: F/U 6 months: more fatigue, increase incontinence, blood sugars and blood pressure is elevated HPI Inna Ortiz is a 69 year old male. Pt presents with family and sister who is caregiver. Pt is here today for multiple concerns. Sister keeps daily diary of blood pressure and blood glucose. She has noted that his BP seems to be more elelvated , for him and blood sugars seem to be on the rise. Highest recorded fasting BS 166. With BP 115/70( he is usually under 100 SBP). He also seems to be sleeping more often and less verbal then in the past. He also seems to be more incontinent then normal. Using 4-5 briefs in a day , whereas usually only keeping one on for accidents. She also is concerned as his seizures seem to be more frequent, 1-2 a month where he usually would go a few months in between prior. She notes changing in caretakers lately may play a role and unsure if they are paying as close attention to his needs as they do and has had some inconsistent caregivers. He does have chronic constipation which they have seen GI for and added mineral oil. Follows with neurology who had increased his dose of Vimpat in March. Otherwise not other new medications. His medications were reviewed today and his list is now up to date. He is compliant on taking his medications: Yes He is tolerating his medication(s) without side effects: Yes He is following an appropriate diet for his medical problems: Yes He is getting some exercise in? N/A He has visited another health care provider since being seen last? :Yes He has had a visit to the emergency department or hospital since being seen last? No, Medications Current Outpatient Medications Medication Sig prazosin (MINIPRESS) 1 mg cap Take 1 capsule by mouth daily at bedtime. lacosamide (VIMPAT) 50 mg (14)- 100 mg (14) DsPk Take 100 mg by mouth two times a day. fluticasone (FLONASE) 50 mcg/actuation nasal spray Use 2 Sprays in each nostril once daily as needed. Rinse mouth after use. simvastatin (ZOCOR) 20 mg tablet Take 1 tablet by mouth daily at bedtime. NAYZILAM 5 mg/spray (0.1 mL) nasal spray Use 1 [place] in the nose as needed for seizures lasting longer than 5 minutes. blood sugar diagnostic (BLOOD GLUCOSE TEST) test [...] 200 mg by mouth daily with breakfast. nitroglycerin (NITROLINGUAL) 400 mcg/spray spray Dissolve 1 [place] under the tongue every 5 minutes as needed. Lactobacillus rhamnosus GG (CULTURELLE ORAL) Take 1 [...] Cough, hypotension Macrobid [Nitrofura* Rash Cefdinir Rash ACTIVE PROBLEM LIST Chronic Diastolic Congestive Heart Failure (Hcc) - 03/03/2024 Focal Epilepsy (Hcc) - 12/06/2022 Syncope and Collapse - 12/06/2022 Orthostatic hypotension [I95.1] - 09/04/2022 Weight Loss, Abnormal - 09/01/2021 Dysphagia - 09/01/2021 Urinary Incontinence - 05/30/2021 Gait Abnormality - 04/20/2021 Acid Indigestion - 05/19/2020 Overactive Bladder - 08/14/2018 Cardiomyopathy, Nonischemic (Hcc) - 04/20/2014 Type 2 Diabetes Mellitus With Polyneuropathy (Hcc) - 02/20/2014 Comment: [place], bilateral. Nail dystrophy. 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 Negative for appetite change, chills, diaphoresis and fever. HENT: Negative. Respiratory: Negative. Cardiovascular: Negative. Gastrointestinal: Negative. Genitourinary: Positive for dysuria. Neurological: Negative. All other systems reviewed and are negative. OBJECTIVE BP 138/78 Pulse 62 Temp (Src) 98.2 (Temporal) Wt 120 lb 5.9 oz (54.6kg) SpO2 100% Physical Exam Vitals and nursing note reviewed. Constitutional: General: He is not in acute distress. Appearance: Normal appearance. He is not ill-appearing. Eyes: Extraocular Movements: Extraocular movements intact. Conjunctiva/sclera: Conjunctivae normal. Pupils: Pupils are equal, round, and reactive to light. Cardiovascular: Rate and Rhythm: Normal rate and regular rhythm. Pulses: Normal pulses. Heart sounds: Normal heart sounds. Pulmonary: Effort: Pulmonary effort is normal. Breath sounds: Normal breath sounds. Abdominal: General: Abdomen is flat. Tenderness: There is abdominal tenderness. Comments: Lower pelvic pain Skin: General: Skin is warm and dry. Capillary Refill: Capillary refill takes less than 2 seconds. Neurological: General: No focal deficit present. Mental Status: He is alert and oriented to person, place, and time. ASSESSMENT/PLAN: 1. Other fatigue - ICD9: 780.79, ICD10: R53.83 (primary diagnosis) Check urine and labs to determine if infectious etiology to symptoms. Possible etiology also includes side effect of Vimpat, discussed with family. Continue current dose for now. - URINALYSIS, WITH MICROSCOPIC - BACTERIAL CULTURE, URINE 2. Encounter for therapeutic drug monitoring - ICD9: V58.83, ICD10: Z51.81 - COMPLETE BLOOD COUNT AND DIFFERENTIAL - COMPREHENSIVE METABOLIC PANEL 3. Type 2 diabetes mellitus with polyneuropathy (HCC) - ICD9: 250.60, 357.2, ICD10: E11.42 - Control undetermined, due for labs - Continue current medications - Counseled on healthy diet and regular exercise - HEMOGLOBIN A1C - ALBUMIN/CREATININE RATIO, URINE 4. Vitamin D deficiency - ICD9: 268.9, ICD10: E55.9 - VITAMIN D 25 HYDROXY 5. Screening for prostate cancer - ICD9: V76.44, ICD10: Z12.5 - Counseled on healthy diet and regular exercise - PSA/PROSTATE SPECIFIC ANTIGEN SCREENING OLIVIER Atkinson- student Medical Decision Making: Data: Unique test(s) ordered: 3+ Risk: Moderate: Drug management Medical Decision Making Level: 4 - Moderate This supervising clinician was available to the student for the entire session as needed. All documentation was reviewed and agreed upon by the supervising clinician. The supervising clinician was present at the beginning of, during , and at the end of the session to discuss with the Patient and Student. Portions of this note have been entered by ancillary staff. I have reviewed and when necessary edited, so that they are an adequate record of my encounter with this patient Please note that parts of this document were created using voice recognition software and therefore may contain grammatical errors. Patient verbalizes understanding of instructions from today's visit and in agreement with treatment plan. Questions answered. Agrees to call the office if questions, concerns of issues with acute symptoms not improving or if they worsen. See diagnoses and orders for additional plan(s). Allergies and medications were reviewed, list was updated, and refills given if needed. Past medical, surgical, social, and family history reviewed and updated as appropriate. Encouraged proper diet & exercise as well as compliance with taking medications. Age-appropriate health preventative measures were discussed. . Return if symptoms worsen or fail to improve, for Keep next scheduled appointment.. Ambar Ladd APRN-PRITESH documented in this encounter [facility] 05-14-2024 Telephone encounter Note Prescription Refill Information The patient has been identified by name and date of : Yes Caregiver verified no other encounters exist for this prescription request: Yes Caregiver confirmed with patient/requestor that no other refills are due, in the near future, with this provider at this time: Yes The last office visit in the department: 02/25/24 Does the patient have a future office visit with this provider/department: Yes 05/21/24 Requested Prescriptions Pending Prescriptions Disp Refills prazosin (MINIPRESS) 1 mg cap 90 capsule 3 Sig: Take 1 capsule by mouth daily at bedtime. Sofi Holden LPN May 14, 2024 9:10 AM [facility] 05-14-2024 Miscellaneous Notes Prescription Refill Information The patient has been identified by name and date of : Yes Caregiver verified no other encounters exist for this prescription request: Yes Caregiver confirmed with patient/requestor that no other refills are due, in the near future, with this provider at this time: Yes The last office visit in the department: 02/25/24 Does the patient have a future office visit with this provider/department: Yes 05/21/24 Requested Prescriptions Pending Prescriptions Disp Refills prazosin (MINIPRESS) 1 mg cap 90 capsule 3 Sig: Take 1 capsule by mouth daily at bedtime. Sofi Holden LPN May 14, 2024 9:10 AM documented in this encounter [facility] 04-22-2024 Evaluation note Diagnosis Onset Date Resolution Abnormal gastric folds acute Fe bruary 2024 10:03am Constipation chronic March 10:03am Weight loss chronic March 10:03am Anxiety acute July 29, 2024 10:24am Depression acute July 29, 2024 10:24am Epilepsy acute July 29, 2024 10:24am Insomnia acute July 29, 2024 10:24am Developmental disability inactive July 29, 2024 10:24am History of stroke inactive July 10:24am History of traumatic brain injury inactive July 29, 2024 10:24am [facility] Work Phone: 1(299) 501-545402-25-2025 Evaluation note* Diagnosis Onset Date Resolution Status Admit Date Abnormal gastric folds acute Fe bruary 2024 10:03am Constipation chronic March 10:03am Weight loss chronic March 10:03am [facility] Work Phone: [phone]) 380-998802-10-2025 Instructions* Patient Instructions* Claudette Branch - 04/07/2024 9:06 AM EST Diabetes Foot Care Instructions When you have diabetes, proper foot care is very important. Poor foot care may lead to amputation of a foot or leg. As a person with diabetes, you are more vulnerable to foot problems, because diabetes can damage your nerves and reduce blood flow to your feet. Here are some diabetes foot care tips to follow: Wash and Dry Your Feet Daily Use mild soaps Use warm water Pat your skin dry; do not rub. Thoroughly dry your feet. After washing, use lotion on your feet to prevent cracking. Do not put lotion between your toes. Examine Your Feet Each Day Check the tops and bottoms of your feet. Have someone else look at your feet if you cannot see them. Check for dry, cracked skin. Look for blisters, cuts, scratches, or other sores. Check for redness, increased warmth, or tenderness when touching any area of your feet. Check for ingrown toenails, corns, and calluses. If you get a blister or sore from your shoes, do not pop it. Apply a bandage and wear a differentpair of shoes. Take Care of Your Toenails Cut toenails after bathing, when they are soft. Cut toenails straight across and smooth with a nail file. Avoid cutting into the corners of toes. Do not cut cuticles. If you have neuropathy (or decreased sensation in your feet) a lens dotter should always cut your toenails. Be Careful When Exercising Walk and exercise in comfortable shoes. Do not exercise when you have open sores on your feet. Protect Your Feet With Shoes and Socks Never go barefoot. Always protect your feet by wearing shoes or hard-soled slippers or footwear. Avoid shoes with high heels and pointed toes. Avoid shoes that expose your toes or heels (such as open-toed shoes or sandals). These types of shoes increase your risk for injury and potential infections. Try on new footwear with the type of socks you usually wear. Do not wear new shoes for more than an hour at a time. Change your socks daily. Look and feel inside your shoes before putting them on to make sure there are no foreign objects orrough areas. Avoid tight socks. Wear natural-fiber socks (cotton, wool, or a cotton-wool blend). Wear special shoes if your health care provider recommends them. Wear shoes/boots that will protect your feet from various weather conditions (cold, moisture, etc.). Make sure your shoes fit properly. If you have neuropathy (nerve damage), you may not notice that your shoes are too tight. Perform the footwear test described below. Footwear Test Use this simple test to see if your shoes fit correctly: Stand on a piece of paper. (Make sure you are standing and not sitting, because your foot changes shape when you stand.) Trace the outline of your foot. Trace the outline of your shoe. Compare the tracings: Is the shoe too narrow? Is your foot crammed into the shoe? The shoe should be at least 1/2 inch longer than your longest toe and as wide as your foot. Proper Shoe Choices The following types of shoes are best for people with diabetes Closed toes and heels Leather uppers without a seam inside At least 1/2 inch extra space at the end of your longest toe Inside of shoe should be soft with no rough areas Outer sole should be made of stiff material Shoes should be at least as wide as your feet Tips for Foot Care in Diabetes Don't wait to treat a minor foot problem if you have diabetes. Follow your health care provider's guidelines and first aid guidelines. Report foot injuries and infections to your health care provider immediately. Check water temperature with your elbow, not your foot. Do not use a heating pad on your feet. Do not cross your legs. Do not self-treat your corns, calluses, or other foot problems. Go to your health care provider or lens dotter to treat these conditions. [facility] NoteHNO ID: [id number] Author: CLAUDETTE BRANCH, ? Service: ? Author Type: Physician Type: Progress Notes Filed: 04/07/2024 09:38 Note Text: Last saw pcp: 03/03/24 Subjective: Patient presents to clinic c/o painful toenails. They state that the nails are especially painful with shoe gear and pressure. Patient states that nails 1-5 b/l are painful. Patient admits to being diabetic. Patient uses hammertoe pad for right 2nd toe and this does help. No other pedal complaints at this time. Patient states no change in medications or medical history since last visit. Objective: Patient presents to clinic ambulating in [facility] Vasc: DP and PT pulses are palpable bilateral. CFT is less than 5 seconds bilateral. Skin temperature is warm to cool proximal to distal bilateral. There is no edema or varicosities noted. Neuro: Protective sensation is decreased to the foot and toes when tested with the 5.07 SWM bilateral. The hallux is downgoing bilateral. Derm: Nails 1-5 b/l are painful, discolored-yellow, thick, crumbly, dystrophic and with subungal debris. Skin is of normal turgor, texture and hair growth is decreased bilateral. There are no hyperkeratosis, ulcerations, scars, verruca or other lesions noted. Ortho: Muscle strength is 5/5 for all pedal groups tested. Ankle joint DF is decreased with the knee extended with no pain or crepitus noted. 1st MPJ ROM is decreased bilateral. Hammertoe is present to right 2nd toe Assessment: (B35.1) Onychomycosis (primary encounter diagnosis) (M79.675) Pain in toe of left foot (M79.674) Pain in toe of right foot (E11.42) Type 2 diabetes mellitus with polyneuropathy (HCC) (M20.41) Hammer toe of right foot Plan: Patient was seen and evaluated. Nails 1-5 bilateral were debrided in length and thickness. Patient was instructed on the continued importance of diabetic foot care along with proper diet and keeping their blood sugar under control to prevent complications. Stressed the importance of avoiding barefoot walking, wearing good shoes and inspection of feet daily. Discussed hammertoe of right 2nd toe. Continue with gel toe cap. Other options discussed include surgery but vania seems to be doing well with toe cap Patient is to RTC in 3-4 months. Claudette Testrake, [facility]02-10-2025 History of Present illness Narrative* Claudette Branch - 04/07/2024 9:05 AM EST Last saw pcp: 03/03/24 Subjective: Patient presents to clinic c/o painful toenails. They state that the nails are especially painful with shoe gear and pressure. Patient states that nails 1-5 b/l are painful. Patient admits to being diabetic. Patient uses hammertoe pad for right 2nd toe and this does help. No other pedalcomplaints at this time. Patient states no change in medications or medical history since last visit. Objective: Patient presents to clinic ambulating in sneakers Vasc: DP and PT pulses are palpable bilateral. CFT is less than 5 seconds bilateral. Skin temperature is warm to cool proximal to distal bilateral. There is no edema or varicosities noted. Neuro: Protective sensation is decreased to the foot and toes when tested with the 5.07 SWM bilateral. The hallux is downgoing bilateral. Derm: Nails 1-5 b/l are painful, discolored-yellow, thick, crumbly, dystrophic and with subungal debris. Skin is of normal turgor, texture and hair growth is decreased bilateral. There are no hyperkeratosis, ulcerations, scars, verruca or other lesions noted. Ortho: Muscle strength is 5/5 for all pedal groups tested. Ankle joint DF is decreased with the knee extended with no pain or crepitus noted. 1st MPJ ROM is decreased bilateral. Hammertoe is present to right 2nd toe Assessment: (B35.1) Onychomycosis (primary encounter diagnosis) (M79.675) Pain in toe of left foot (M79.674) Pain in toe of right foot (E11.42) Type 2 diabetes mellitus with polyneuropathy (HCC) (M20.41) Hammer toe of right foot Plan: Patient was seen and evaluated. Nails 1-5 bilateral were debrided in length and thickness. Patient was instructed on the continued importance of diabetic foot care along with proper diet andkeeping their blood sugar under control to prevent complications. Stressed the importance of avoiding barefoot walking, wearing good shoes and inspection of feet daily. Discussed hammertoe of right 2nd toe. Continue with gel toe cap. Other options discussed include surgery but vania seems to be doing well with toe cap Patient is to RTC in 3-4 months. Claudette Branch DPM * Cait Bah LPN - 04/07/2024 8:57 AM EST AMB ROOMING INTAKE FLOWSHEET DATA Risk Screening Do you have concerns about personal safety or safety in the home?: No Patient presents with: Left Foot - Established Patient, Follow Up, Diabetic Foot Check Right Foot - Established Patient, Follow Up, Diabetic Foot Check Cait Bah LPN [facility] NoteHNO ID: [id number] Author: CAIT BAH LPN Service: ? Author Type: LICENSED NURSE Type: Progress Notes Filed: 04/07/2024 09:38 Note Text: AMB ROOMING INTAKE FLOWSHEET DATA Risk Screening Do you have concerns about personal safety or safety in the home?: No Patient presents with: Left Foot - Established Patient, Follow Up, Diabetic Foot Check Right Foot - Established Patient, Follow Up, Diabetic Foot Check [facility] NoteHNO ID: [id number] Author: CHELE MIXON MD Service: ? Author Type: Physician Type: Progress Notes Filed: 03/03/2024 15:45 Note Text: Patient presents with: Nasal Congestion: drainage, sneezing and cough x 3 weeks HPI: Feeling sick for 3 weeks. His sister has been sick also. His mother tested positive for COVID 02/24. He has some residual nasal drainage but is otherwise improved. Positive symptoms: Cough, Nasal Congestion, Rhinorrhea, sneezing, Negative symptoms: Fever, Shortness of breath, MEDICATIONS: Current Outpatient Medications Medication Sig fluticasone (FLONASE) 50 mcg/actuation nasal spray Use 2 Sprays in each nostril once daily as needed. Rinse mouth after use. simvastatin (ZOCOR) 20 mg tablet Take 1 tablet by mouth daily at bedtime. prazosin (MINIPRESS) 1 mg cap Take 1 mg by mouth daily at bedtime. NAYZILAM 5 mg/spray (0.1 mL) nasal spray Use 1 [place] in the nose as needed for seizures lasting longer than 5 minutes. blood sugar diagnostic (BLOOD GLUCOSE TEST) test [...] 200 mg by mouth daily with breakfast. nitroglycerin (NITROLINGUAL) 400 mcg/spray spray Dissolve 1 [place] under the tongue every 5 minutes as needed. Lactobacillus rhamnosus GG (CULTURELLE ORAL) Take 1 capsule by mouth once daily. glucosamine/chondr victoria A sod (OSTEO BI-FLEX ORAL) Take by mouth once daily. Lancets lancets Test blood sugar(s) two times daily. Dx: E11.9. Insulin: No aspirin, enteric coated (ECOTRIN LOW STRENGTH) 81 mg EC tablet Take 1 tablet by mouth once daily. No current facility-administered medications for this visit. ALLERGIES: ALLERGIES Allergen Reactions Bandar Inhibitors Other: See Comments Cough, hypotension Macrobid [Nitrofura* Rash Cefdinir Rash VITALS: BP 122/70 Pulse 78 Temp 36.2 ?C (97.2 ?F) Resp 16 Wt 55.8 kg (123 lb) SpO2 100% BMI 18.16 kg/m? PHYSICAL EXAM: GEN: Pleasant, in no acute distress. Non-verbal. History provided by his sister. HEENT: PERRL, EOMI, conjunctiva clear Ears: canals occluded by cerumen Sinuses: non-tender frontal sinus, non-tender maxillary sinuses, no drainage Throat: moist mucous membranes, no erythema, no exudate Neck: supple, no thyromegaly, no lymphadenopathy HEART: regular rate, regular rhythm, no murmurs LUNGS: clear to auscultation, no wheezes or crackles, no increased WOB ASSESSMENT/PLAN: 1. URI, acute - ICD9: 465.9, ICD10: J06.9 (primary diagnosis) 2. Exposure to confirmed case of COVID-19 - ICD9: V01.79, ICD10: Z20.822 Likely COVID illness a few weeks ago. He is beyond the contagious window; COVID test is not indicated. Stay home until symptoms are improving and fever free for 24 hours without taking fever reducing medication. You can reduce spread of COVID by wearing a mask around others for 5 additional days. Treat with supportive care such as cough medicine, cold medicine, and pain relievers. Follow up with worsening symptoms; in the ER if severe. Chele Mixon [facility]01-06-2025 History of Present illness Narrative* Chele Mixon MD - 03/03/2024 3:08 PM EST Patient presents with: Nasal Congestion: drainage, sneezing and cough x 3 weeks HPI: Feeling sick for 3 weeks. His sister has been sick also. His mother tested positive for COVID 02/24. He has some residual nasal drainage but is otherwise improved. Positive symptoms: Cough, Nasal Congestion, Rhinorrhea, sneezing, Negative symptoms: Fever, Shortness of breath, MEDICATIONS: Current Outpatient Medications Medication Sig fluticasone (FLONASE) 50 mcg/actuation nasal spray Use 2 Sprays in each nostril once daily as needed. Rinse mouth after use. simvastatin (ZOCOR) 20 mg tablet Take 1 tablet by mouth daily at bedtime. prazosin (MINIPRESS) 1 mg cap Take 1 mg by mouth daily at bedtime. NAYZILAM 5 mg/spray (0.1 mL) nasal spray Use 1 [place] in the nose as needed for seizures lasting longer than 5 minutes. blood sugar diagnostic (BLOOD GLUCOSE TEST) test [...] 200 mg by mouth daily with breakfast. nitroglycerin (NITROLINGUAL) 400 mcg/spray spray Dissolve 1 [place] under the tongue every 5 minutes as needed. Lactobacillus rhamnosus GG (CULTURELLE ORAL) Take 1 capsule by mouth once daily. glucosamine/chondr victoria A sod (OSTEO BI-FLEX ORAL) Take by mouth once daily. Lancets lancets Test blood sugar(s) two times daily. Dx: E11.9. Insulin: No aspirin, enteric coated (ECOTRIN LOW STRENGTH) 81 mg EC tablet Take 1 tablet by mouth once daily. No current facility-administered medications for this visit. ALLERGIES: ALLERGIES Allergen Reactions Bandar Inhibitors Other: See Comments Cough, hypotension Macrobid [Nitrofura* Rash Cefdinir Rash VITALS: BP 122/70 Pulse 78 Temp 36.2 C (97.2 F) Resp 16 Wt 55.8 kg (123 lb) SpO2 100% BMI 18.16kg/m PHYSICAL EXAM: GEN: Pleasant, in no acute distress. Non-verbal. History provided by his sister. HEENT: PERRL, EOMI, conjunctiva clear Ears: canals occluded by cerumen Sinuses: non-tender frontal sinus, non-tender maxillary sinuses, no drainage Throat: moist mucous membranes, no erythema, no exudate Neck: supple, no thyromegaly, no lymphadenopathy HEART: regular rate, regular rhythm, no murmurs LUNGS: clear to auscultation, no wheezes or crackles, no increased WOB ASSESSMENT/PLAN: 1. URI, acute - ICD9: 465.9, ICD10: J06.9 (primary diagnosis) 2. Exposure to confirmed case of COVID-19 - ICD9: V01.79, ICD10: Z20.822 Likely COVID illness a few weeks ago. He is beyond the contagious window; COVID test is not indicated. Stay home until symptoms are improving and fever free for 24 hours without taking fever reducing medication. You can reduce spread of COVID by wearing a mask around others for 5 additional days. Treat with supportive care such as cough medicine, cold medicine, and pain relievers. Follow up with worsening symptoms; in the ER if severe. Chele Mixon MD [facility]25 NoteHNO ID: [id number] Author: DL WHEELER MD Service: ? Author Type: Physician Type: Progress Notes Filed: 03/03/2024 14:49 Note Text: Dl Wheeler MD Interventional Cardiology [address] [address] [phone] Chief Complaint No chief complaint on file. HISTORY OF PRESENT ILLNESS: Mr. Ortiz is a 69 year old male seen my office today for assessment management history of nonischemic dilated cardiomyopathy with atrial fraction 40% ?5 longstanding history of hypertension but could not tolerate any medication because of hypotension recently blood pressures systolic of 100 clinically he is stable with no signs or symptoms of congestive heart failure Currently take no cardiac medication Cardiac Risk Factors age (male over 45, [...] Onset Coronary Artery Disease Father Heart Father OH AT AGE 63 COPD Sister Asthma Sister No Known Problems Maternal Grandmother No Known Problems Maternal Grandfather No Known Problems Paternal Grandmother No Known Problems Paternal Grandfather Colon Cancer Other Cancer Other LUNG Diabetes Other Emphysema Other Social History Tobacco Use Smoking status: Never Smokeless tobacco: Never Vaping Use Vaping status: Never Used Substance Use Topics Alcohol use: No Drug use: No ALLERGIES Allergen Reactions Bandar Inhibitors Other: See Comments Cough, hypotension Macrobid [Nitrofura* Rash Cefdinir Rash Medications: Current Outpatient Medications Medication Sig Dispense Refill fluticasone (FLONASE) 50 mcg/actuation nasal spray Use 2 Sprays in each nostril once daily as needed. Rinse mouth after use. 1 Each 5 simvastatin (ZOCOR) 20 mg tablet Take 1 tablet by mouth daily at bedtime. 90 tablet 3 prazosin (MINIPRESS) 1 mg cap Take 1 mg by mouth daily at bedtime. NAYZILAM 5 mg/spray (0.1 mL) nasal spray Use 1 [place] in the nose as needed for seizures lasting longer than 5 minutes. blood sugar diagnostic (BLOOD GLUCOSE TEST) test strip Test blood sugar(s) 2 times daily. Dx: Type 2 DM - Uncontrolled E11.65 Insulin: No 200 Strip 3 oxybutynin ER (DITROPAN XL) 10 mg 24 hr tablet Take 1 tablet by mouth once daily. 90 tablet 3 famotidine (PEPCID) 20 mg tablet Take 1 tablet by mouth once daily. (Per GI) 90 tablet 2 docusate sodium (COLACE) 100 mg capsule Take 200 mg by mouth daily with breakfast. nitroglycerin (NITROLINGUAL) 400 mcg/spray spray Dissolve 1 [place] under the tongue every 5 minutes as needed. 12 g 1 Lactobacillus rhamnosus GG (CULTURELLE ORAL) Take 1 [...] easily. Psychiatric/Behavioral: Negative for depression, hallucinations, memory (more content not included)...[facility]01-06-2025 History of Present illness Narrative* Dl Wheeler MD - 03/03/2024 2:46 PM EST Images from the original note were not included. Dl Wheeler MD Interventional Cardiology [address] [place] [address] [phone] Chief Complaint No chief complaint on file. HISTORY OF PRESENT ILLNESS: Mr. Ortiz is a 69 year old male seen my office today for assessment management history of nonischemic dilated cardiomyopathy with atrial fraction 40% 5 longstanding history of hypertension but could not tolerate any medication because of hypotension recently blood pressures systolic of 100 clinically he is stable with no signs or symptoms of congestive heart failure Currently take no cardiac medication Cardiac Risk Factors age (male over 45, [...] Onset Coronary Artery Disease Father Heart Father [place] AT AGE 63 COPD Sister Asthma Sister No Known Problems Maternal Grandmother No Known Problems Maternal Grandfather No Known Problems Paternal Grandmother No Known Problems Paternal Grandfather Colon Cancer Other Cancer Other LUNG Diabetes Other Emphysema Other Social History Tobacco Use Smoking status: Never Smokeless tobacco: Never Vaping Use Vaping status: Never Used Substance Use Topics Alcohol use: No Drug use: No ALLERGIES Allergen Reactions Bandar Inhibitors Other: See Comments Cough, hypotension Macrobid [Nitrofura* Rash Cefdinir Rash Medications: Current Outpatient Medications Medication Sig Dispense Refill fluticasone (FLONASE) 50 mcg/actuation nasal spray Use 2 Sprays in each nostril once daily as needed. Rinse mouth after use. 1 Each 5 simvastatin (ZOCOR) 20 mg tablet Take 1 tablet by mouth daily at bedtime. 90 tablet 3 prazosin (MINIPRESS) 1 mg cap Take 1 mg by mouth daily at bedtime. NAYZILAM 5 mg/spray (0.1 mL) nasal spray Use 1 [place] in the nose as needed for seizures lasting longer than 5 minutes. blood sugar diagnostic (BLOOD GLUCOSE TEST) test strip Test blood sugar(s) 2 times daily. Dx: Type 2 DM - Uncontrolled E11.65 Insulin: No 200 Strip 3 oxybutynin ER (DITROPAN XL) 10 mg 24 hr tablet Take 1 tablet by mouth once daily. 90 tablet 3 famotidine (PEPCID) 20 mg tablet Take 1 tablet by mouth once daily. (Per GI) 90 tablet 2 docusate sodium (COLACE) 100 mg capsule Take 200 mg by mouth daily with breakfast. nitroglycerin (NITROLINGUAL) 400 mcg/spray spray Dissolve 1 [place] under the tongue every 5 minutes as needed. 12 g 1 Lactobacillus rhamnosus GG (CULTURELLE ORAL) Take 1 [...] does not have insomnia. Physical Examination: Vitals:BP 122/70[manual cuff[ Pulse 77 Resp 12 Ht 5' 9 (1.75m) Wt 123 lb (55.8kg) SpO2 100% BMI 18.16 kg/(m^2). BP w/Orthostatic Vitals Date and Time Orthostatic BP Orthostatic Pulse BP Pulse BP Position BP Site BP Cuff Size 03/03/24 1416 -- -- 122/70 77 Sitting Right Arm Regular Adult Peak Flow Date and Time PF Resp 03/03/24 1416 -- 12 Last 2 Encounter Wt Readings: Date: Wt: 03/03/2024 55.8 kg (123 lb) 11/13/2023 55.6 kg (122 lb 9.2 oz) Physical Exam Constitutional: General: He is [...] or rales. Chest: Chest wall: No tenderness. Abdominal: General: Abdomen is flat. Musculoskeletal: General: Normal range of motion. Cervical back: Normal range of motion and neck supple. Skin: General: Skin is warm and dry. Neurological: Mental Status: He is alert and oriented to person, place, and time. Psychiatric: Mood and Affect: Mood normal. Thought Content: Thought content normal. Pertinent Labs: CBC: Hemoglobin (g/dL) Date Value 11/10/2023 14.7 11/18/2020 15.7 Hematocrit (%) Date Value 11/10/2023 46.9 11/18/2020 51.0 WBC (k/uL) Date Value 11/10/2023 7.99 11/18/2020 7.56 Platelet Count (k/uL) Date Value 11/10/2023 211 11/18/2020 246 BMP: Glucose (mg/dL) Date Value 11/10/2023 94 11/18/2020 112 Potassium (mmol/L) Date Value 11/10/2023 3.9 11/18/2020 4.1 Sodium (mmol/L) Date Value 11/10/2023 142 11/18/2020 139 Chloride (mmol/L) Date Value 11/10/2023 103 11/18/2020 101 CO2 (mmol/L) Date Value 11/10/2023 26 11/18/2020 26 Creatinine (mg/dL) Date Value 11/10/2023 1.03 11/18/2020 0.99 BUN (mg/dL) Date Value 11/10/2023 17 11/18/2020 17 Anion Gap (mmol/L) Date Value 11/10/2023 13 11/18/2020 12 Calcium (mg/dL) Date Value 11/18/2020 9.8 Calcium, Total (mg/dL) Date Value 11/10/2023 9.8 INR: Lipid Profile: Cholesterol, Total Date Value Ref Range Status 11/10/2023 153 <200 mg/dL Final Comment: <200 mg/dL, Desirable 200-239 mg/dL, Borderline high >239 mg/dL, High HDL Cholesterol Date Value Ref Range Status 11/10/2023 55 >39 mg/dL Final Comment: 40-59 mg/dL, Acceptable >59 mg/dL, High: Negative risk factor for coronary heart disease <40 mg/dL, Low: Positive risk factor for coronary heart disease LDL Cholesterol Date Value Ref Range Status 11/10/2023 83 <100 mg/dL Final Comment: <100 mg/dL, Optimal 100-129 mg/dL, Near optimal/above optimal 130-159 mg/dL, Borderline high 160-189 mg/dL, High >189 mg/dL, Very high Secondary prevention optimal LDL Cholesterol levels are recommended to be < 70 mg/dL Triglyceride Date Value Ref Range Status 11/10/2023 74 <150 mg/dL Final Comment: <150 mg/dL, Normal 150-199 mg/dL, Borderline high 200-499 mg/dL, High >499 mg/dL, Very high Hemoglobin A1C: No results found for: HGBA1C TSH: No results found for: TSHREFL Prior Cardiac Testing none Assessment and Plan: 69 years old gentleman history of nonischemic dilated cardiomyopathy ASSESSMENT/PLAN: 1. Chronic diastolic congestive heart failure (HCC) - ICD9: 428.32, 428.0, ICD10: I50.32 - HFmrEF 41-49 - Encouraged sodium restriction - Encouraged daily weights Cannot tolerate the medication because of soft blood pressure Dl Wheeler MD Follow up plannin months Electronically signed by Dl Wheeler MD on March 03, 2024, 2:46 PM The above note was partially created using a dictation recognition software. A reasonable attempt has been made to correct any errors. documented in this encounterFost[facility]12-30-[facility]24 Instructions* Patient Instructions* Eliza Zamora MD - 02/25/2024 9:54 AM EST - Administer Flonase as needed for nasal congestion; prescription with refills will be sent. - Encourage fluid intake to help with hydration and recovery. - Use chicken broth to help soothe the throat and provide hydration. - Monitor for any worsening symptoms or new symptoms, and report them if they occur. - Follow up with Dr. Bey in February or early March for a refill of Pepcid. documented in this encounterFostoria City Hospital12-30-2024 NoteHNO ID: [id number] Author: ELIZA ZAMORA MD Service: ? Author Type: Physician Type: Progress Notes Filed: 02/25/2024 09:57 Note Text: This note was created using NoteWriter. Subjective Inna Ortiz is a 69 year old male. Patient presents with: Same Day Appointment: X 2 weeks possible sore throat, cough, runny nose, sneezing and headache SUBJECTIVE: Inna Ortiz is a 69 year old year old gentleman here today for acute appointment for review of medical conditions: Upper respiratory symptoms. Inna Ortiz is a 69-year-old male, with a history of amoxicillin allergy, presenting with URI symptoms. Inna has been experiencing URI symptoms for the past 2 weeks, including sneezing, rhinorrhea, and a cough that began after [place]. The cough has been persistent and occasionally severe enough to induce emesis. Inna's caregiver reports that he has been hoarse and stuffed up, with audible congestion during respiration. Despite these symptoms, Inna has maintained a good appetite and has not shown signs of significant agitation or discomfort. Inna has a history of amoxicillin allergy. Inna's caregiver also notes difficulty with cerumen impaction, which has been challenging to manage due to Inna's cough reflex being triggered during ear cleaning. Inna is currently using Flonase as needed for respiratory symptoms. 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 prazosin (MINIPRESS) 1 mg cap Take 1 mg by mouth daily at bedtime. NAYZILAM 5 mg/spray (0.1 mL) nasal spray Use 1 [place] in the nose as needed for seizures lasting longer than 5 minutes. blood sugar diagnostic (BLOOD GLUCOSE TEST) test strip Test blood sugar(s) 2 times daily. Dx: Type 2 DM - Uncontrolled E11.65 Insulin: No oxybutynin ER (DITROPAN XL) 10 mg 24 hr tablet Take 1 tablet by mouth once daily. lacosamide (VIMPAT) 50 mg tab Take 1 tablet by mouth two times a day for 90 days. (Patient taking differently: Take 100 mg by mouth two times a day.) famotidine (PEPCID) 20 mg tablet Take 1 tablet by mouth once daily. (Per GI) docusate sodium (COLACE) 100 mg capsule Take 200 mg by mouth daily with breakfast. cyanocobalamin (VITAMIN B-12) 1,000 mcg tab Take 1 tablet by mouth once daily. (Patient taking differently: Take 500 mcg by mouth once daily.) nitroglycerin (NITROLINGUAL) 400 mcg/spray spray Dissolve 1 [place] under the tongue every 5 minutes as [...] this visit. Review of Systems Objective BP 112/76 Pulse 81 Temp (!) 35.7 ?C (96.3 ?F) Resp 18 SpO2 100% Physical Exam Vitals reviewed. Constitutional: Appearance: Normal appearance. HENT: Right Ear: There is impacted cerumen. Left Ear: There is impacted cerumen. Nose: No rhinorrhea. Mouth/Throat: Mouth: Mucous membranes are moist. Pharynx: No oropharyngeal exudate or posterior oropharyngeal erythema. Eyes: Conjunctiva/sclera: Conjunctivae normal. Pupils: Pupils are equal, [...] Cognition and Memory: Cognition is impaired. Comments: Attentive. At baseline. Nonverbal Assessment and Plan # Viral upper respiratory tract infection (J06.9) # Acute cough (R05.1) # Nasal congestion (R09.81) # Rhinitis, unspecified type (J31.0) - Symptoms include sneezing, rhinorrhea, cough, and hoarseness for approximately two weeks. - Physical examinatio (more content not included)...[facility] 02-25-2024 History of Present illness Narrative* Eliza Zamora MD - 02/25/2024 9:44 AM EST This note was created using Reachpod - [employer] Bilisim[employer]. Subjective Inna Ortiz is a 69 year old male. Patient presents with: Same Day Appointment: X 2 weeks possible sore throat, cough, runny nose, sneezing and headache SUBJECTIVE: Inna Ortiz is a 69 year old year old gentleman here today for acute appointment for review of medical conditions: Upper respiratory symptoms. Inna Ortiz is a 69-year-old male, with a history of amoxicillin allergy, presenting with URI symptoms. Inna has been experiencing URI symptoms for the past 2 weeks, including sneezing, rhinorrhea, and a cough that began after [place]. The cough has been persistent and occasionally severe enough to induce emesis. Inna's caregiver reports that he has been hoarse and stuffed up, with audible congestion during respiration. Despite these symptoms, Inna has maintained a good appetite and has not shown signs of significant agitation or discomfort. Inna has a history of amoxicillin allergy. Inna's caregiver also notes difficulty with cerumen impaction, which has been challenging to manage due to Inna's cough reflex being triggered during ear cleaning. Inna is currently using Flonase as needed for respiratory symptoms. PAST MEDICAL HISTORY Diagnosis Date CONVULSIONS, OTHER [...] hypertension 10/10/2004 Current Outpatient Medications Medication Sig simvastatin (ZOCOR) 20 mg tablet Take 1 tablet by mouth daily at bedtime. prazosin (MINIPRESS) 1 mg cap Take 1 mg by mouth daily at bedtime. NAYZILAM 5 mg/spray (0.1 mL) nasal spray Use 1 [place] in the nose as needed for seizures lasting longer than 5 minutes. blood sugar diagnostic (BLOOD GLUCOSE TEST) test strip Test blood sugar(s) 2 times daily. Dx: Type 2 DM - Uncontrolled E11.65 Insulin: No oxybutynin ER (DITROPAN XL) 10 mg 24 hr tablet Take 1 tablet by mouth once daily. lacosamide (VIMPAT) 50 mg tab Take 1 tablet by mouth two times a day for 90 days. (Patient taking differently: Take 100 mg by mouth two times a day.) famotidine (PEPCID) 20 mg tablet Take 1 tablet by mouth once daily. (Per GI) docusate sodium (COLACE) 100 mg capsule Take 200 mg by mouth daily with breakfast. cyanocobalamin (VITAMIN B-12) 1,000 mcg tab Take 1 tablet by mouth once daily. (Patient taking differently: Take 500 mcg by mouth once daily.) nitroglycerin (NITROLINGUAL) 400 mcg/spray spray Dissolve 1 [place] under the tongue every 5 minutes as [...] this visit. Review of Systems Objective BP 112/76 Pulse 81 Temp (!) 35.7 C (96.3 F) Resp 18 SpO2 100% Physical Exam Vitals reviewed. Constitutional: Appearance: Normal appearance. HENT: Right Ear: There is impacted cerumen. Left Ear: There is impacted cerumen. Nose: No rhinorrhea. Mouth/Throat: Mouth: Mucous membranes are moist. Pharynx: No oropharyngeal exudate or posterior oropharyngeal erythema. Eyes: Conjunctiva/sclera: Conjunctivae normal. Pupils: Pupils are equal, [...] Cognition and Memory: Cognition is impaired. Comments: Attentive. At baseline. Nonverbal Assessment and Plan # Viral upper respiratory tract infection (J06.9) # Acute cough (R05.1) # Nasal congestion (R09.81) # Rhinitis, unspecified type (J31.0) - Symptoms include sneezing, rhinorrhea, cough, and hoarseness for approximately two weeks. - Physical examination reveals clear oropharynx, no erythema or exudate, and clear lung cantor withno crackles or wheezes. - Oxygenation is adequate, and patient is eating well. - Discussed that viral infections can cause coughs lasting 2-8 weeks. - Recommended increased fluid intake and use of chicken broth to soothe the throat and help with congestion. - Prescribed Flonase nasal spray, to be used as needed. - Monitor for any worsening symptoms or signs of secondary bacterial infection. # Bilateral impacted cerumen (H61.23) - Examination reveals significant cerumen impaction bilaterally, obscuring visualization of the tympanic membranes. - Discussed that cerumen impaction can sometimes trigger a cough reflex. - Advised to use [id number] cerumenolytic agents to soften the wax. - Monitor for any signs of discomfort or hearing loss. Eliza Zamora MD documented in this encounterFost[facility]11-26-2024 Telephone encounter Note * Telephone Encounter - Elvia Lan - 01/22/2024 8:10 AM EST Prescription Refill Information The patient has been identified by name and date of : Yes Caregiver verified no other encounters exist for this prescription request: Yes Caregiver confirmed with patient/requestor that no other refills are due, in the near future, with this provider at this time: Yes The last office visit in the department: 12/07/23 Does the patient have a future office visit with this provider/department: Yes Requested Prescriptions Pending Prescriptions Disp Refills simvastatin (ZOCOR) 20 mg tablet 90 tablet 3 Sig: Take 1 tablet by mouth daily at bedtime. Evlia Newton January 22, 2024 8:10 AM [facility]11-26-[facility] Miscellaneous Notes* Telephone Encounter - Elvia Lan - 01/22/2024 8:10 AM EST Prescription Refill Information The patient has been identified by name and date of : Yes Caregiver verified no other encounters exist for this prescription request: Yes Caregiver confirmed with patient/requestor that no other refills are due, in the near future, with this provider at this time: Yes The last office visit in the department: 12/07/23 Does the patient have a future office visit with this provider/department: Yes Requested Prescriptions Pending Prescriptions Disp Refills simvastatin (ZOCOR) 20 mg tablet 90 tablet 3 Sig: Take 1 tablet by mouth daily at bedtime. Elvia Newton January 22, 2024 8:10 AM documented in this encounterFostoria City Hospital11-07-2024 NoteHNO ID: [id number] Author: CLAUDETTE BRANCH, ? Service: ? Author Type: Physician Type: Progress Notes Filed: 01/05/2024 05:48 Note Text: Last saw pcp: 12/07/23 Subjective: Patient presents to clinic c/o painful toenails. They state that the nails are especially painful with shoe gear and pressure. Patient states that nails 1-5 b/l are painful. Patient admits to being diabetic. No other pedal complaints at this time. Patient states no change in medications or medical history since last visit. Objective: Patient presents to clinic ambulating in [facility] Vasc: DP and PT pulses are palpable bilateral. CFT is less than 5 seconds bilateral. Skin temperature is warm to cool proximal to distal bilateral. There is mild edema or varicosities noted. Neuro: Protective sensation is intact to the foot and toes when tested with the 5.07 SWM bilateral. Vibratory sensation is decreased at the hallux IPJ bilateral. The hallux is downgoing bilateral. Derm: Nails 1-5 b/l are painful, discolored-yellow, thick, crumbly, dystrophic and with subungal debris. Skin is of normal turgor, texture and hair growth is present bilateral. There are no hyperkeratosis, ulcerations, scars, verruca or other lesions noted. Ortho: Muscle strength is 5/5 for all pedal groups tested. Ankle joint DF is decreased with the knee extended with no pain or crepitus noted. 1st MPJ ROM is decreased bilateral. Assessment: (B35.1) Onychomycosis (primary encounter diagnosis) (M79.675) Pain in toe of left foot (M79.674) Pain in toe of right foot (E11.42) Type 2 diabetes mellitus with polyneuropathy (HCC) Plan: Patient was seen and evaluated. Nails 1-5 bilateral were debrided in length and thickness. Patient was instructed on the continued importance of diabetic foot care along with proper diet and keeping their blood sugar under control to prevent complications. Stressed the importance of avoiding barefoot walking, wearing good shoes and inspection of feet. Patient is to RTC in 3-4 months. Claudette Branch [facility]11-07-2024 History of Present illness Narrative* Claudette Branch - 01/03/2024 9:28 AM EST Last saw pcp: 12/07/23 Subjective: Patient presents to clinic c/o painful toenails. They state that the nails are especially painful with shoe gear and pressure. Patient states that nails 1-5 b/l are painful. Patient admits to being diabetic. No other pedal complaints at this time. Patient states no change in medications or medical history since last visit. Objective: Patient presents to clinic ambulating in [facility] Vasc: DP and PT pulses are palpable bilateral. CFT is less than 5 seconds bilateral. Skin temperature is warm to cool proximal to distal bilateral. There is mild edema or varicosities noted. Neuro: Protective sensation is intact to the foot and toes when tested with the 5.07 SWM bilateral.Vibratory sensation is decreased at the hallux IPJ bilateral. The hallux is downgoing bilateral. Derm: Nails 1-5 b/l are painful, discolored-yellow, thick, crumbly, dystrophic and with subungal debris. Skin is of normal turgor, texture and hair growth is present bilateral. There are no hyperkeratosis, ulcerations, scars, verruca or other lesions noted. Ortho: Muscle strength is 5/5 for all pedal groups tested. Ankle joint DF is decreased with the knee extended with no pain or crepitus noted. 1st MPJ ROM is decreased bilateral. Assessment: (B35.1) Onychomycosis (primary encounter diagnosis) (M79.675) Pain in toe of left foot (M79.674) Pain in toe of right foot (E11.42) Type 2 diabetes mellitus with polyneuropathy (HCC) Plan: Patient was seen and evaluated. Nails 1-5 bilateral were debrided in length and thickness. Patient was instructed on the continued importance of diabetic foot care along with proper diet and keeping their blood sugar under control to prevent complications. Stressed the importance of avoiding barefoot walking, wearing good shoes and inspection of feet. Patient is to RTC in 3-4 months. Claudette Branch DPM * Cait Bah LPN - 01/03/2024 8:54 AM EST AMB ROOMING INTAKE FLOWSHEET DATA Patient presents with: Left Foot - Established Patient, Follow Up, Diabetic Foot Check Right Foot - Established Patient, Follow Up, Diabetic Foot Check Cait Bah LPN documented in this encounterFostoria City Hospital11-07-2024 Instructions* Patient Instructions* Claudette Branch - 01/03/2024 9:28 AM EST Diabetes Foot Care Instructions When you have diabetes, proper foot care is very important. Poor foot care may lead to amputation of a foot or leg. As a person with diabetes, you are more vulnerable to foot problems, because diabetes can damage your nerves and reduce blood flow to your feet. Here are some diabetes foot care tips to follow: Wash and Dry Your Feet Daily Use mild soaps Use warm water Pat your skin dry; do not rub. Thoroughly dry your feet. After washing, use lotion on your feet to prevent cracking. Do not put lotion between your toes. Examine Your Feet Each Day Check the tops and bottoms of your feet. Have someone else look at your feet if you cannot see them. Check for dry, cracked skin. Look for blisters, cuts, scratches, or other sores. Check for redness, increased warmth, or tenderness when touching any area of your feet. Check for ingrown toenails, corns, and calluses. If you get a blister or sore from your shoes, do not pop it. Apply a bandage and wear a differentpair of shoes. Take Care of Your Toenails Cut toenails after bathing, when they are soft. Cut toenails straight across and smooth with a nail file. Avoid cutting into the corners of toes. Do not cut cuticles. If you have neuropathy (or decreased sensation in your feet) a lens dotter should always cut your toenails. Be Careful When Exercising Walk and exercise in comfortable shoes. Do not exercise when you have open sores on your feet. Protect Your Feet With Shoes and Socks Never go barefoot. Always protect your feet by wearing shoes or hard-soled slippers or footwear. Avoid shoes with high heels and pointed toes. Avoid shoes that expose your toes or heels (such as open-toed shoes or sandals). These types of shoes increase your risk for injury and potential infections. Try on new footwear with the type of socks you usually wear. Do not wear new shoes for more than an hour at a time. Change your socks daily. Look and feel inside your shoes before putting them on to make sure there are no foreign objects orrough areas. Avoid tight socks. Wear natural-fiber socks (cotton, wool, or a cotton-wool blend). Wear special shoes if your health care provider recommends them. Wear shoes/boots that will protect your feet from various weather conditions (cold, moisture, etc.). Make sure your shoes fit properly. If you have neuropathy (nerve damage), you may not notice that your shoes are too tight. Perform the footwear test described below. Footwear Test Use this simple test to see if your shoes fit correctly: Stand on a piece of paper. (Make sure you are standing and not sitting, because your foot changes shape when you stand.) Trace the outline of your foot. Trace the outline of your shoe. Compare the tracings: Is the shoe too narrow? Is your foot crammed into the shoe? The shoe should be at least 1/2 inch longer than your longest toe and as wide as your foot. Proper Shoe Choices The following types of shoes are best for people with diabetes Closed toes and heels Leather uppers without a seam inside At least 1/2 inch extra space at the end of your longest toe Inside of shoe should be soft with no rough areas Outer sole should be made of stiff material Shoes should be at least as wide as your feet Tips for Foot Care in Diabetes Don't wait to treat a minor foot problem if you have diabetes. Follow your health care provider's guidelines and first aid guidelines. Report foot injuries and infections to your health care provider immediately. Check water temperature with your elbow, not your foot. Do not use a heating pad on your feet. Do not cross your legs. Do not self-treat your corns, calluses, or other foot problems. Go to your health care provider or lens dotter to treat these conditions. documented in this encounterFostoria City Hospital11-07-2024 NoteHNO ID: [id number] Author: CAIT BAH LPN Service: ? Author Type: LICENSED NURSE Type: Progress Notes Filed: 01/05/2024 05:48 Note Text: AMB ROOMING INTAKE FLOWSHEET DATA Patient presents with: Left Foot - Established Patient, Follow Up, Diabetic Foot Check Right Foot - Established Patient, Follow Up, Diabetic Foot Check Cait Bah, [facility]09-17-2024 History of Present illness Narrative* Eliza Zamora MD - 11/13/2023 2:00 PM EDT This note was created using [employer] - [employer]. Subjective Inna Ortiz is a 68 year old male. No chief complaint on file. SUBJECTIVE: Inna Ortiz is a 68 year old year old gentleman here today for 6 month follow up appointment for review of medical conditions. The patient is a 68-year-old male with a history of seizures, gastroparesis, and idiopathic constipation, presenting for a routine 6-month follow-up visit. He is accompanied by his mother and sister,who are providing history on his behalf. The patient has not required the use of his newly prescribed nasal spray, Nayzilam, for seizures lasting longer than 5 minutes. He is also taking prazosin 1 mg, prescribed by Dr. Bey, a forestry fire aide, to address prostate issues that may be contributing to his bowel problems. He has a history of gastroparesis, diagnosed after an endoscopy procedure in 2023,which is believed to be affecting his ability to gain weight and causing idiopathic constipation. He has a tendency to eat quickly without chewing properly, leading to choking episodes. He is scheduled for an oatmeal test tomorrow to assess the function of his esophageal and stomach muscles,and a barium swallow test is planned to evaluate his lower esophagus. The patient has been gaining weight, currently at 122 lbs, up from 117 lbs. His blood sugars have been well-controlled, with occasional readings in the 120s, and his blood pressure readings have beenconsistently between 110-115 mmHg systolic and 60s mmHg diastolic. His heart rate has been stable, ranging from 63-73 bpm. Recent lab results show normal blood sugar, liver and kidney function tests,blood counts, cholesterol levels, and vitamin D levels. His A1c is normal, and his potassium levelsare on the low end. He is currently taking simvastatin to manage his cholesterol. PAST MEDICAL HISTORY Diagnosis Date CONVULSIONS, OTHER [...] hypertension 10/10/2004 Current Outpatient Medications Medication Sig prazosin (MINIPRESS) 1 mg cap Take 1 mg by mouth daily at bedtime. blood sugar diagnostic (BLOOD GLUCOSE TEST) test strip Test blood sugar(s) 2 times daily. Dx: Type 2 DM - Uncontrolled E11.65 Insulin: No oxybutynin ER (DITROPAN XL) 10 mg 24 hr tablet Take 1 tablet by mouth once daily. lacosamide (VIMPAT) 50 mg tab Take 1 tablet by mouth two times a day for 90 days. simvastatin (ZOCOR) 20 mg tablet Take 1 tablet by mouth daily at bedtime. famotidine (PEPCID) 20 mg tablet Take 1 tablet by mouth once daily. (Per GI) docusate sodium (COLACE) 100 mg capsule Take 200 mg by mouth daily with breakfast. cyanocobalamin (VITAMIN B-12) 1,000 mcg tab Take 1 tablet by mouth once daily. nitroglycerin (NITROLINGUAL) 400 mcg/spray spray Dissolve 1 [place] under the tongue every 5 minutes as [...] Take 1 tablet by mouth once daily. NAYZILAM 5 mg/spray (0.1 mL) nasal spray Use 1 [place] in the nose as needed for seizures lasting longer than 5 minutes. No current facility-administered medications for this visit. Review of Systems Objective BP 110/62 Pulse 77 Temp 37 C (98.6 F) Resp 18 Wt 55.6 kg (122 lb 9.2 oz) SpO2 99% BMI 18.10 kg/m Physical Exam Vitals reviewed. Constitutional: Appearance: [...] time. Psychiatric: Mood and Affect: Mood normal. Speech: He is noncommunicative. Behavior: Behavior is cooperative. Comments: Awake and alert Latest Ref Rng 04/04/2023 11/10/2023 Protein, Total 6.3 - 8.0 g/dL 7.2 7.3 Albumin 3.9 - 4.9 g/dL 4.6 4.6 Calcium 8.5 - 10.2 mg/dL 9.9 9.8 Bilirubin, Total 0.2 - 1.3 mg/dL 0.7 0.6 Alkaline Phosphatase 38 - 113 U/L 80 73 AST 14 - 40 U/L 21 20 ALT 10 - 54 U/L 13 10 Glucose 74 - 99 mg/dL 101 (H) 94 BUN 9 - 24 mg/dL 16 17 Creatinine 0.73 - 1.22 mg/dL 0.99 1.03 Sodium 136 - 144 mmol/L 140 142 Potassium 3.7 - 5.1 mmol/L 4.0 3.9 Chloride 98 - 107 mmol/L 100 103 CO2 22 - 30 mmol/L 26 26 Anion Gap 8 - 15 mmol/L 14 13 eGFR >=60 mL/min/1.73m 84 80 WBC 3.70 - 11.00 k/uL 6.60 7.99 RBC 4.20 - 6.00 m/uL 5.58 5.37 Hemoglobin 13.0 - 17.0 g/dL 15.8 14.7 Hematocrit 39.0 - 51.0 % 48.7 46.9 MCV 80.0 - 100.0 fL 87.3 87.3 MCH 26.0 - 34.0 pg 28.3 27.4 MCHC 30.5 - 36.0 g/dL 32.4 31.3 RDW-CV 11.5 - 15.0 % 13.7 14.2 Platelet Count 150 - 400 k/uL 223 211 MPV 9.0 - 12.7 fL 10.9 10.6 Absolute nRBC <0.01 k/uL <0.01 <0.01 Cholesterol, Total <200 mg/dL 141 153 Triglyceride <150 mg/dL 56 74 HDL Cholesterol >39 mg/dL 57 55 Non HDL Cholesterol <130 mg/dL 84 98 Fasting Time hrs 15 15 VLDL Cholesterol <30 mg/dL 11 15 TC:HDL Ratio <5.10 2.47 2.78 LDL Cholesterol <100 mg/dL 73 83 LDL:HDL Ratio <2.54 1.28 1.51 Hemoglobin A1C 4.3 - 5.6 % 5.3 5.3 Estimated Average Glucose mg/dL 105 105 Vitamin D 25 Hydroxy 31.0 - 80.0 ng/mL 60.1 56.7 Legend: (H) High Assessment and Plan # Type 2 diabetes mellitus with polyneuropathy (HCC) (E11.42) - Blood glucose levels well-controlled, with occasional readings up to 190 mg/dL; no recent readings above 200 mg/dL. - Hemoglobin A1c within normal range. - Continue current dietary management and monitoring. - Patient's weight is gradually increasing, currently at 122 lbs. - Advised to maintain a balanced diet with adequate caloric intake to support weight gain. - Discussed the importance of monitoring blood glucose levels 2 hours postprandial to ensure accurate readings. 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 Weaver for seizures lasting longer than 5 minutes; no usage reported yet. - Added Nayzilam to medication list: one spray intranasally as needed for seizures lasting longer than 5 minutes. - Educated on the administration of Nayzilam, including the use of a second spray if the seizure persists. # Mixed hyperlipidemia (E78.2) - Lipid panel within normal limits: HDL 35 mg/dL, LDL 83 mg/dL, triglycerides within normal range. - Continue simvastatin therapy. # Gastroparesis (K31.84) - Diagnosed by Dr. Katz; contributing to difficulty in weight gain. - Scheduled for an upper GI series with small bowel follow-through (oatmeal test) tomorrow to assess gastric emptying time. - Barium swallow study to be scheduled to evaluate esophageal motility. - Discussed dietary modifications to aid digestion, including consuming small, frequent meals and avoiding large bites. - Advised to consider minced or pureed foods to facilitate easier swallowing and digestion. - Encouraged adequate hydration to support gastrointestinal motility. - Follow-up with Dr. Katz for further management based on test results. Eliza Zamora MD documented in this encounterFostoria City [facility]09-17-[facility]24 NoteHNO ID: [id number] Author: ELIZA ZAMORA MD Service: ? Author Type: Physician Type: Progress Notes Filed: 12/23/2023 17:04 Note Text: This note was created using [employer] - [employer]. Subjective Inna Ortiz is a 68 year old male. No chief complaint on file. SUBJECTIVE: Inna Ortiz is a 68 year old year old gentleman here today for 6 month follow up appointment for review of medical conditions. The patient is a 68-year-old male with a history of seizures, gastroparesis, and idiopathic constipation, presenting for a routine 6-month follow-up visit. He is accompanied by his mother and sister, who are providing history on his behalf. The patient has not required the use of his newly prescribed nasal spray, Nayzilam, for seizures lasting longer than 5 minutes. He is also taking prazosin 1 mg, prescribed by Dr. Bey, a forestry fire aide, to address prostate issues that may be contributing to his bowel problems. He has a history of gastroparesis, diagnosed after an endoscopy procedure in 2023,which is believed to be affecting his ability to gain weight and causing idiopathic constipation. He has a tendency to eat quickly without chewing properly, leading to choking episodes. He is scheduled for an oatmeal test tomorrow to assess the function of his esophageal and stomach muscles, and a barium swallow test is planned to evaluate his lower esophagus. The patient has been gaining weight, currently at 122 lbs, up from 117 lbs. His blood sugars have been well-controlled, with occasional readings in the 120s, and his blood pressure readings have been consistently between 110-115 mmHg systolic and 60s mmHg diastolic. His heart rate has been stable, ranging from 63-73 bpm. Recent lab results show normal blood sugar, liver and kidney function tests, blood counts, cholesterol levels, and vitamin D levels. His A1c is normal, and his potassium levels are on the low end. He is currently taking simvastatin to manage his cholesterol. PAST MEDICAL HISTORY Diagnosis Date CONVULSIONS, OTHER [...] hypertension 10/10/2004 Current Outpatient Medications Medication Sig prazosin (MINIPRESS) 1 mg cap Take 1 mg by mouth daily at bedtime. blood sugar diagnostic (BLOOD GLUCOSE TEST) test strip Test blood sugar(s) 2 times daily. Dx: Type 2 DM - Uncontrolled E11.65 Insulin: No oxybutynin ER (DITROPAN XL) 10 mg 24 hr tablet Take 1 tablet by mouth once daily. lacosamide (VIMPAT) 50 mg tab Take 1 tablet by mouth two times a day for 90 days. simvastatin (ZOCOR) 20 mg tablet Take 1 tablet by mouth daily at bedtime. famotidine (PEPCID) 20 mg tablet Take 1 tablet by mouth once daily. (Per GI) docusate sodium (COLACE) 100 mg capsule Take 200 mg by mouth daily with breakfast. cyanocobalamin (VITAMIN B-12) 1,000 mcg tab Take 1 tablet by mouth once daily. nitroglycerin (NITROLINGUAL) 400 mcg/spray spray Dissolve 1 [place] under the tongue every 5 minutes as [...] Take 1 tablet by mouth once daily. NAYZILAM 5 mg/spray (0.1 mL) nasal spray Use 1 [place] in the nose as needed for seizures lasting longer than 5 minutes. No current facility-administered medications for this visit. Review of Systems Objective BP 110/62 Pulse 77 Temp 37 ?C (98.6 ?F) Resp 18 Wt 55.6 kg (122 lb 9.2 oz) SpO2 99% BMI 18.10 kg/m? Physical Exam Vitals reviewed. Constitutional: Appearance: Normal [...] time. Psychiatric: Mood and Affect: Mood normal. Speech: He is noncommunicative. Behavior: Behavior is cooperative. Comments: Awake and alert Latest Ref Rng 04/04/2023 11/10/2023 Protein, Total 6.3 - 8. (more content not included)...[facility] 10-16-2023 [facility] Medical Records Department [address] [place] [address] History Physical Exam 10/16/23 1254 MR#: [id number] Acct: [id number] Name: INNA ORTIZ Rep #: [id number] : 1955 68 From: Diomedes Friend DO PCP: Dr. Eliza Zamora MD Status:[facility] Location: [place] [address] History and Physical Date of Admission: 10/16/23 INNA ROTIZ, is a 68 M who presents to the office today for follow up. BGI established 9.29.22 for weight loss and epigastric pain. Caregiver is concerned about Metformin use.??? Biochemical???ESR, haptoglobin, amylase, PSA, LDH, CRP, BANDAR, A1c, CPK, lipase, ceruloplasmin, ferritin, ammonia, copper, aldolase, CA 19-9, CEA, coag, GAME, JESUSITA comp, DOMINICK, ANCA, celiac, ASM, AMA without pertinent abnormality.??? Stool elastase, c.difficile (formed), EP, O/P, giardia WNL.?Calprotectin H121, lactoferrin +??? OV 02.21.22 for unintentional weight loss of 20lbs in 9 months. Reports good appetite eating 3 full meals/day, snacks and protein supplement. Occasionally points to epigastrium an says it hurts.?CT abd/pel 03.06.22???enlarged prostate with evidence ofcentral density calcification.?EGD and colonoscopy 03.29.22???EGD irregular Zline 37cm.?Colonoscopy 5mm rectal TA polyp.??? OV 04.12.22 recommend daily MiraLAX to address constipation?Capsule endoscopy 06.20.22???enlarged gastric folds; poor visibility of small bowel; mild erythema of small bowel.?Biochemical 5.323???gastrin H433??? OV 07.25.22 Stop omeprazole, start famotidine. Stop colestipol, start fiber.??? 119 Pt's sister reports ongoing constipation. Gives him Miralax and Dulcolax but still has 2-3 days inbetween BM. No abdominal pain reported or heartburn. OV 10.04.23 sister reports continued symptoms from previous visit and that she has found spinach helps with his constipation. Sister reports gas and bloating due to pt inhaling his food recently and eating too fast. ROS Const Constitutional: Positive for fatigue, headache(s) and weight change (weight gain); No fever(s) ENT ENT: Positive for headache(s) and difficulty swallowing Cardio Cardiology: Positive for leg pain with exertion Gastro GI: Positive for bloating, constipation, difficulty swallowing and excessive flatus; No abdominal pain, belching, change in bowel habits, change in stool character, coffee ground emesis, cramping, diarrhea, heartburn, feeling full early, incontinent of stools, Vomiting blood/hematemesis, Blood in stool, loose stools, Black,tarry stools, nausea/dyspepsia, pain with swallowing, vomiting or other Musc Musculoskeletal: Positive for abnormal gait, joint pain, back pain, muscle weakness, stiffness, Arthritis and leg pain with exertion Skin Skin: Positive for itchy eyes; No yellowing of the eye Neuro Neurology: Positive for abnormal gait and headache(s) Psych Psychiatric: Positive for anxiety, Positive for depression and Positive for inattentiveness Endo Endocrine: Positive for fatigue and weight change (weight gain) Aller/Imm Allergy/Immunologic: Positive for itchy eyes Tyler/Lymp Hematologic/Lymphatic: Positive for easy bleeding and easy bruising Exam Const General: cooperative, comfortable and no acute distress Nutritional Appearance: underweight Orientation: alert and awake Other: nonverbal Assessment and Plan Assessment and Plan (1) Abnormal gastric folds: Status: Acute Plan: 67 yr old male with unexplained weight loss, no GI etiology found with labs/endoscopies Stop omeprazole, switch to famotidine Recheck gastrin level in 2 mos Stop colestipol since hasn't help with abd pain, and he already has constipation, and now pruritus Try FiberChoice tablets daily They will be seeing neuro at [facility] in a few weeks f/u 2 mos, send portal msg or call sooner if needed (2) Weight loss: Status: Chronic Plan: Due to the continued change in bowel habits we will get a CT scan of the pelvis with p.o. and IV contrast. I suspect a lot of his issues may be secondary to chronic idiopathic constipation. However he does have a history of BPH and has been having some symptoms of urinary outlet. We will check urinalysis, CMP, CBC along with his CT scan abdomen pelvis. (3) Constipation: Status: Chronic Plan: see above I have examined the patient and the H P has been reviewed. There are no clinical changes since date of exam. 10/16/23 1254 Cosigner Signature (if applicable): CC: Dr. Eliza Zamora MD; Diomedes Friend, SignedWSelect Medical Specialty [facility] History of Present illness Narrative * Claudette Branch - 10/01/2023 9:03 AM EDT Last saw pcp: 04/30/23 Subjective: Patient presents to clinic c/o painful toenails. They state that the nails are especially painful with shoe gear and pressure. Patient states that nails 1-5 b/l are painful. Patient admits to being diabetic. Patient does complain of pain to right 2nd toe due to hammertoe. No other pedalcomplaints at this time. Patient states no change in medications or medical history since last visit. Objective: Patient presents to clinic ambulating in [facility] Vasc: DP and PT pulses are palpable bilateral. CFT is less than 5 seconds bilateral. Skin temperature is warm to cool proximal to distal bilateral. There is no edema or varicosities noted. Neuro: Protective sensation is decreased to the foot and toes when tested with the 5.07 SWM bilateral. The hallux is downgoing bilateral. Derm: Nails 1-5 bl are painful, discolored-yellow, thick, crumbly, dystrophic and with subungal debris. Skin is of normal turgor, texture and hair growth is present bilateral. There are no hyperkeratosis, ulcerations, scars, verruca or other lesions noted. Ortho: Muscle strength is 5/5 for all pedal groups tested. Ankle joint DF is decreased with the knee extended with no pain or crepitus noted. 1st MPJ ROM is decreased bilateral. Clawtoe deformity is noted to right 2nd toe Assessment: (B35.1) Onychomycosis (primary encounter diagnosis) (M79.675) Pain in toe of left foot (M79.674) Pain in toe of right foot (M20.42) Hammer toe of left foot (M20.41) Hammer toe of right foot (E11.42) Type 2 diabetes mellitus with polyneuropathy (HCC) Plan: Patient was seen and evaluated. Nails 1-5 bilateral were debrided in length and thickness. Small bleed to right 2nd toe. Band aide and alcohol applied. Discussed clawtoe of right 2nd toe. Gel padding dispensed. Other options discussed not limited to tenotomy vs dipj fusion vs distal syme amputation. Patient is going to contin with pad. Patient was instructed on the continued importance of diabetic foot care along with proper diet andkeeping their blood sugar under control to prevent complications. Stressed the importance of avoiding barefoot walking, wearing good shoes and daily foot inspection. Patient is to RTC in 3-4 months. Claudette Branch DPM * Adry Ricci RN - 10/01/2023 8:51 AM EDT Patient presents with: Left Foot - Established Patient, Follow Up, Diabetic Foot Check Right Foot - Established Patient, Follow Up, Diabetic Foot Check Patient presents for follow up diabetic foot care/exam. SALVADOR 06/21/23 documented in this encounterFostoria City [facility]08-05-2024 Instructions* Patient Instructions* Claudette Branch - 10/01/2023 9:03 AM EDT Diabetes Foot Care Instructions When you have diabetes, proper foot care is very important. Poor foot care may lead to amputation of a foot or leg. As a person with diabetes, you are more vulnerable to foot problems, because diabetes can damage your nerves and reduce blood flow to your feet. Here are some diabetes foot care tips to follow: Wash and Dry Your Feet Daily Use mild soaps Use warm water Pat your skin dry; do not rub. Thoroughly dry your feet. After washing, use lotion on your feet to prevent cracking. Do not put lotion between your toes. Examine Your Feet Each Day Check the tops and bottoms of your feet. Have someone else look at your feet if you cannot see them. Check for dry, cracked skin. Look for blisters, cuts, scratches, or other sores. Check for redness, increased warmth, or tenderness when touching any area of your feet. Check for ingrown toenails, corns, and calluses. If you get a blister or sore from your shoes, do not pop it. Apply a bandage and wear a differentpair of shoes. Take Care of Your Toenails Cut toenails after bathing, when they are soft. Cut toenails straight across and smooth with a nail file. Avoid cutting into the corners of toes. Do not cut cuticles. If you have neuropathy (or decreased sensation in your feet) a lens dotter should always cut your toenails. Be Careful When Exercising Walk and exercise in comfortable shoes. Do not exercise when you have open sores on your feet. Protect Your Feet With Shoes and Socks Never go barefoot. Always protect your feet by wearing shoes or hard-soled slippers or footwear. Avoid shoes with high heels and pointed toes. Avoid shoes that expose your toes or heels (such as open-toed shoes or sandals). These types of shoes increase your risk for injury and potential infections. Try on new footwear with the type of socks you usually wear. Do not wear new shoes for more than an hour at a time. Change your socks daily. Look and feel inside your shoes before putting them on to make sure there are no foreign objects orrough areas. Avoid tight socks. Wear natural-fiber socks (cotton, wool, or a cotton-wool blend). Wear special shoes if your health care provider recommends them. Wear shoes/boots that will protect your feet from various weather conditions (cold, moisture, etc.). Make sure your shoes fit properly. If you have neuropathy (nerve damage), you may not notice that your shoes are too tight. Perform the footwear test described below. Footwear Test Use this simple test to see if your shoes fit correctly: Stand on a piece of paper. (Make sure you are standing and not sitting, because your foot changes shape when you stand.) Trace the outline of your foot. Trace the outline of your shoe. Compare the tracings: Is the shoe too narrow? Is your foot crammed into the shoe? The shoe should be at least 1/2 inch longer than your longest toe and as wide as your foot. Proper Shoe Choices The following types of shoes are best for people with diabetes Closed toes and heels Leather uppers without a seam inside At least 1/2 inch extra space at the end of your longest toe Inside of shoe should be soft with no rough areas Outer sole should be made of stiff material Shoes should be at least as wide as your feet Tips for Foot Care in Diabetes Don't wait to treat a minor foot problem if you have diabetes. Follow your health care provider's guidelines and first aid guidelines. Report foot injuries and infections to your health care provider immediately. Check water temperature with your elbow, not your foot. Do not use a heating pad on your feet. Do not cross your legs. Do not self-treat your corns, calluses, or other foot problems. Go to your health care provider or lens dotter to treat these conditions. documented in this encounterFostoria City Hospital08-05-2024 Telephone encounter Note * Telephone Encounter - Indy Mendieta RN - 10/01/2023 9:01 AM EDT Called and reviewed the below results with patient's sister, Angie. Indy Mendieta RN [facility]08-05-2024 Miscellaneous Notes* Telephone Encounter - Indy Mendieta RN - 10/01/2023 9:01 AM EDT Called and reviewed the below results with patient's sister, Angie. Indy Mendieta RN * Telephone Encounter - Indy Mendieta RN - 10/01/2023 8:42 AM EDT ----- Message from Dl Wheeler MD sent at 09/29/2023 8:45 AM EDT ----- Stable LV function Please inform patient camille documented in this encounterFostoria City Hospital08-05-2024 Telephone encounter Note * Telephone Encounter - Indy Mendieta RN - 10/01/2023 8:42 AM EDT ----- Message from Dl Wheeler MD sent at 09/29/2023 8:45 AM EDT ----- Stable LV function Please inform patient edisonirish [facility]08-04-[facility] Telephone encounter Note* Telephone Encounter - Eliza Zamora MD - 09/30/2023 4:01 PM EDT See MyChart reply [facility]08-04-2024 Miscellaneous Notes* Telephone Encounter - Eliza Zamora MD - 09/30/2023 4:01 PM EDT See MyChart reply documented in this encounterFostoria City Hospital07-22-2024 Telephone encounter Note * Telephone Encounter - Xiomy Herbert - 09/17/2023 8:33 AM EDT Patient's sister calling on the status of refill request. [facility]-22-[facility] Miscellaneous Notes* Telephone Encounter - Xiomy Herbert - 09/17/2023 8:33 AM EDT Patient's sister calling on the status of refill request. * Telephone Encounter - Laura Grewal - 09/15/2023 8:15 AM EDT Patient has been identified by name and date of : Yes Daughter phones for refill(s): Requested Prescriptions Pending Prescriptions Disp Refills blood sugar diagnostic (BLOOD GLUCOSE TEST) test strip 200 Strip 3 Sig: Test blood sugar(s) 2 times daily. Dx: Type 2 DM - Uncontrolled E11.65 Insulin: No Date of last office visit in primary care: 04/30/2023 Date of next office visit in primary care: 11/13/2023 Please advise. Thank you. Laura Grewal. documented in this encounterFostoria City Hospital07-20-2024 Telephone encounter Note * Telephone Encounter - Laura Grewal - 09/15/2023 8:15 AM EDT Patient has been identified by name and date of : Yes Daughter phones for refill(s): Requested Prescriptions Pending Prescriptions Disp Refills blood sugar diagnostic (BLOOD GLUCOSE TEST) test strip 200 Strip 3 Sig: Test blood sugar(s) 2 times daily. Dx: Type 2 DM - Uncontrolled E11.65 Insulin: No Date of last office visit in primary care: 04/30/2023 Date of next office visit in primary care: 11/13/2023 Please advise. Thank you. Laura Grewal. [facility] History of Present illness Narrative* Dl Wheeler MD - 08/20/2023 12:50 PM EDT Images from the original note were not included. Dl Wheeler MD Interventional Cardiology [address] [place] [address] Chief Complaint Patient presents with: Established Patient HISTORY OF PRESENT ILLNESS: Mr. Ortiz is a 68 year old male seen in office today for assessment and management prior history ofnonischemic cardiomyopathy with ejection fraction of 40% patient had longstanding history of hypertension could not tolerate any of the medication was prescribed his blood pressure is maintaining normal clinically he is not in congestive heart failure Cardiac Risk Factors age [...] Onset Coronary Artery Disease Father Heart Father [place] AT AGE 63 COPD Sister Asthma Sister [...] by mouth once daily. 90 tablet 3 lacosamide (VIMPAT) 50 mg tab Take 1 tablet by mouth two times a day for 90 days. 180 tablet 0 simvastatin (ZOCOR) 20 mg tablet Take 1 tablet by mouth daily at bedtime. 90 tablet 3 famotidine (PEPCID) 20 mg tablet Take 1 tablet by mouth once daily. (Per GI) 90 tablet 2 docusate sodium (COLACE) 100 mg capsule Take 200 mg by mouth daily with breakfast. cyanocobalamin (VITAMIN B-12) 1,000 mcg tab Take 1 tablet by mouth once daily. nitroglycerin (NITROLINGUAL) 400 mcg/spray spray Dissolve 1 [place] under the tongue every 5 minutes as [...] 1 tablet by mouth once daily. 0 blood sugar diagnostic (BLOOD GLUCOSE TEST) test strip Test blood sugar(s) 2 times daily. Dx: Type 2 DM - Uncontrolled E11.65 Insulin: No 200 Strip 3 Lancets lancets Test blood sugar(s) two times daily. Dx: E11.9. Insulin: No 100 Each 11 No current facility-administered medications for this visit. [...] does not have insomnia. Physical Examination: Vitals:BP 131/78 Pulse 60 Resp 17 SpO2 100% BP w/Orthostatic Vitals Date and Time Orthostatic BP Orthostatic Pulse BP Pulse BP Position BP Site BP Cuff Size 08/20/23 1236 -- -- 131/78 60 Sitting Right Arm Regular Adult Peak Flow Date and Time PF Resp 08/20/23 1236 -- 17 Last 2 Encounter Wt Readings: Date: Wt: 04/30/2023 53.5 kg (118 lb) 03/22/2023 53.8 kg (118 lb 9.6 oz) Physical Exam Constitutional: General: He is [...] Pertinent Labs: CBC: Hemoglobin (g/dL) Date Value 04/04/2023 15.8 11/18/2020 15.7 Hematocrit (%) Date Value 04/04/2023 48.7 11/18/2020 51.0 WBC (k/uL) Date Value 04/04/2023 6.60 11/18/2020 7.56 Platelet Count (k/uL) Date Value 04/04/2023 223 11/18/2020 246 BMP: Glucose (mg/dL) Date Value 04/04/2023 101 11/18/2020 112 Potassium (mmol/L) Date Value 04/04/2023 4.0 11/18/2020 4.1 Sodium (mmol/L) Date Value 04/04/2023 140 11/18/2020 139 Chloride (mmol/L) Date Value 04/04/2023 100 11/18/2020 101 CO2 (mmol/L) Date Value 04/04/2023 26 11/18/2020 26 Creatinine (mg/dL) Date Value 04/04/2023 0.99 11/18/2020 0.99 BUN (mg/dL) Date Value 04/04/2023 16 11/18/2020 17 Anion Gap (mmol/L) Date Value 04/04/2023 14 11/18/2020 12 Calcium (mg/dL) Date Value 11/18/2020 9.8 Calcium, Total (mg/dL) Date Value 04/04/2023 9.9 INR: Lipid Profile: Cholesterol, Total Date Value Ref Range Status 04/04/2023 141 <200 mg/dL Final Comment: <200 mg/dL, Desirable 200-239 mg/dL, Borderline high >239 mg/dL, High HDL Cholesterol Date Value Ref Range Status 04/04/2023 57 >39 mg/dL Final Comment: 40-59 mg/dL, Acceptable >59 mg/dL, High: Negative risk factor for coronary heart disease <40 mg/dL, Low: Positive risk factor for coronary heart disease LDL Cholesterol Date Value Ref Range Status 04/04/2023 73 <100 mg/dL Final Comment: <100 mg/dL, Optimal 100-129 mg/dL, Near optimal/above optimal 130-159 mg/dL, Borderline high 160-189 mg/dL, High >189 mg/dL, Very high Secondary prevention optimal LDL Cholesterol levels are recommended to be < 70 mg/dL Triglyceride Date Value Ref Range Status 04/04/2023 56 <150 mg/dL Final Comment: <150 mg/dL, Normal 150-199 mg/dL, Borderline high 200-499 mg/dL, High >499 mg/dL, Very high Hemoglobin A1C: No results found for: HGBA1C TSH: No results found for: TSHREFL Prior Cardiac Testing none Assessment and Plan: 68 years old gentleman prior history of nonischemic dilated cardiomyopathy with no manifestation ofcongestive heart failure ASSESSMENT/PLAN: 1. Chronic diastolic congestive heart failure (HCC) - ICD9: 428.32, 428.0, ICD10: I50.32 (primary diagnosis) - HFrEF <=40 - Encouraged daily weights Patient cannot tolerate any medication because of soft blood pressure he is not on BANDAR inhibitors neither beta-blockers or diuretics clinically there is no indication - ECHO - PERFLUTREN LIPID MICROSPHERES 1.1 MG/ML INJECTION IN NS 10 ML - SODIUM CHLORIDE 0.9 % (FLUSH) INJECTION SYRINGE 2. Primary hypertension - ICD9: 401.9, ICD10: I10 - Controlled - Recommend home blood pressure monitoring, to bring results to next visit - Encouraged sodium restriction, DASH or Mediterranean diet - Recommend regular aerobic exercise - Reviewed risks of hypertension and principles of treatment Patient was taken off of the medication blood pressure remained stable Dl Wheeler MD Follow up plannin months Electronically signed by Dl Wheeler MD on August 20, 2023, 12:50 PM The above note was partially created using a dictation recognition software. A reasonable attempt has been made to correct any errors. [facility] encounter[facility] Telephone encounter Note * Telephone Encounter - Eliza Zamora MD - 07/30/2023 11:47 PM EDT The following approved medication requests have been transmitted electronically. Requested Prescriptions Pending Prescriptions Disp Refills oxybutynin ER (DITROPAN XL) 10 mg 24 hr tablet 90 tablet 3 Sig: Take 1 tablet by mouth once daily. lEiza Zamora MD [facility]06-03-[facility] Miscellaneous Notes* Telephone Encounter - Eliza Zamora MD - 07/30/2023 11:47 PM EDT The following approved medication requests have been transmitted electronically. Requested Prescriptions Pending Prescriptions Disp Refills oxybutynin ER (DITROPAN XL) 10 mg 24 hr tablet 90 tablet 3 Sig: Take 1 tablet by mouth once daily. Eliza Zamora MD * Telephone Encounter - Laura العلي - 07/30/2023 9:23 AM EDT Patient has been identified by name and date of : Yes, Provider Dr. Zamora Date 07-30-23 Time 9:24 Parent/Guardian phones for refill(s): Requested Prescriptions Pending Prescriptions Disp Refills oxybutynin ER (DITROPAN XL) 10 mg 24 hr tablet 90 tablet 3 Sig: Take 1 tablet by mouth once daily. Date of last office visit in primary care: 04/30/2023 Date of next office visit in primary care: 11/13/2023 Please advise. Thank you. Laura Newton. documented in this encounterF[facility]06-[facility] Telephone encounter Note * Telephone Encounter - Laura العلي - 07/30/2023 9:23 AM EDT Patient has been identified by name and date of : Yes, Provider Dr. Zamora Date 07-30-23 Time 9:24 Parent/Guardian phones for refill(s): Requested Prescriptions Pending Prescriptions Disp Refills oxybutynin ER (DITROPAN XL) 10 mg 24 hr tablet 90 tablet 3 Sig: Take 1 tablet by mouth once daily. Date of last office visit in primary care: 04/30/2023 Date of next office visit in primary care: 11/13/2023 Please advise. Thank you. Laura Newton. [facility] Telephone encounter Note* Telephone Encounter - Suki Qureshi PA-C - 07/17/2023 12:31 PM EDT Will refill Vimpat for three months until patient can be seen by Dr. Sparks. PDMP website checked and validated. All prescriptions have been APPROPRIATELY filled. No suspiciousactivity was identified. 07/17/2023 by Suki Qureshi PA-C [facility] Miscellaneous Notes* Telephone Encounter - Suki Qureshi PA-C - 07/17/2023 12:31 PM EDT Will refill Vimpat for three months until patient can be seen by Dr. Sparks. PDMP website checked and validated. All prescriptions have been APPROPRIATELY filled. No suspiciousactivity was identified. 07/17/2023 by Suki Qureshi PA-C * Telephone Encounter - Susy Villafuerte LPN - 07/16/2023 9:29 AM EDT Sister Adams calling to let you know pt cannot get in to see Dr. Sparks till 09-22-23. Asking yuuto fill the Vimpat till he is seen. Patient has been identified by name and date of : Yes, Provider Suki Qureshi Date 07/16/23 Time 9:32 pm sister phones for refill(s): Requested Prescriptions Pending Prescriptions Disp Refills lacosamide (VIMPAT) 50 mg tab 180 tablet 0 Sig: Take 1 tablet by mouth two times a day for 90 days. Date of last office visit in primary care: 03/20/2023 Date of next office visit in primary care: Visit date not found Please advise. Thank you. Susy Villafuerte LPN. documented in this encounterFost[facility]05-20-2024 Telephone encounter Note * Telephone Encounter - Susy Villafuerte LPN - 07/16/2023 9:29 AM EDT Sister Adams calling to let you know pt cannot get in to see Dr. Sparks till 09-22-23. Asking otoniel fill the Vimpat till he is seen. Patient has been identified by name and date of : Yes, Provider Suki Qureshi Date 07/16/23 Time 9:32 pm sister phones for refill(s): Requested Prescriptions Pending Prescriptions Disp Refills lacosamide (VIMPAT) 50 mg tab 180 tablet 0 Sig: Take 1 tablet by mouth two times a day for 90 days. Date of last office visit in primary care: 03/20/2023 Date of next office visit in primary care: Visit date not found Please advise. Thank you. Susy Villafuerte LPN. [facility] History of Present illness Narrative* Cait Bah LPN - 06/21/2023 10:[address] Branch, Inna was provided with gel toe caps x 2, size S/M , and instructed/educated inits application, wear, and care. All questions were answered, and patient was able to demonstrate competence with the necessary skills to utilize the above equipment. Cait Bah LPN * Claudette Branch - 06/21/2023 9:27 AM EDT Last saw pcp: 04/30/23 Subjective: Patient presents to clinic c/o painful toenails. They state that the nails are especially painful with shoe gear and pressure. Patient states that nails 1-5 b/l are painful. Patient admits to being diabetic. No other pedal complaints at this time. Patient states no change in medications or medical history since last visit. Objective: Patient presents to clinic ambulating in [facility] Vasc: DP and PT pulses are palpable bilateral. CFT is less than 5 seconds bilateral. Skin temperature is warm to cool proximal to distal bilateral. There is no edema or varicosities noted. Neuro: Protective sensation is intact to the foot and toes when tested with the 5.07 SWM bilateral.Vibratory sensation is absent at the hallux IPJ bilateral. The hallux is downgoing bilateral. Derm: Nails 1-5 b/l are painful, discolored-yellow, thick, crumbly, dystrophic and with subungal debris. Skin is of normal turgor, texture and hair growth is present bilateral. There are no hyperkeratosis, ulcerations, scars, verruca or other lesions noted. Sub 1.0 cm lesion noted to right maxillary region, just below right eye. Ortho: Muscle strength is 5/5 for all pedal groups tested. Ankle joint DF is decreased with the knee extended with no pain or crepitus noted. 1st MPJ ROM is decreased bilateral. Hammertoe is present to b/l 5th toe Assessment: (B35.1) Onychomycosis (primary encounter diagnosis) (M79.675) Pain in toe of left foot (M79.674) Pain in toe of right foot (M20.42) Hammer toe of left foot (M20.41) Hammer toe of right foot (L84) Callus of foot (E11.42) Type 2 diabetes mellitus with polyneuropathy (HCC) (D22.9) Nevus Plan: Patient was seen and evaluated. Nails 1-5 bilateral were debrided in length and thickness. Provided patient with gel toe cap for hammertoe. Continue with new balance shoes. Small callus to b/l 5th toe reduced with dremmel Patient was instructed on the continued importance of diabetic foot care along with proper diet andkeeping their blood sugar under control to prevent complications. Has component of neuropathy. Avoid barefoot walking Discussed lesion of right maxillary region. Would recommend derm referral Patient is to RTC in 3-4 months. Claudette Branch DPM * Radha Pollock RN - 06/21/2023 9:17 AM EDT Patient presents with: Left Foot - Established Patient, Diabetic Foot Care Right Foot - Established Patient, Diabetic Foot Care documented in this encounterF[facility]04-25-2024 Instructions* Patient Instructions* Claudette Branch - 06/21/2023 9:57 AM EDT Diabetes Foot Care Instructions When you have diabetes, proper foot care is very important. Poor foot care may lead to amputation of a foot or leg. As a person with diabetes, you are more vulnerable to foot problems, because diabetes can damage your nerves and reduce blood flow to your feet. Here are some diabetes foot care tips to follow: Wash and Dry Your Feet Daily Use mild soaps Use warm water Pat your skin dry; do not rub. Thoroughly dry your feet. After washing, use lotion on your feet to prevent cracking. Do not put lotion between your toes. Examine Your Feet Each Day Check the tops and bottoms of your feet. Have someone else look at your feet if you cannot see them. Check for dry, cracked skin. Look for blisters, cuts, scratches, or other sores. Check for redness, increased warmth, or tenderness when touching any area of your feet. Check for ingrown toenails, corns, and calluses. If you get a blister or sore from your shoes, do not pop it. Apply a bandage and wear a differentpair of shoes. Take Care of Your Toenails Cut toenails after bathing, when they are soft. Cut toenails straight across and smooth with a nail file. Avoid cutting into the corners of toes. Do not cut cuticles. If you have neuropathy (or decreased sensation in your feet) a lens dotter should always cut your toenails. Be Careful When Exercising Walk and exercise in comfortable shoes. Do not exercise when you have open sores on your feet. Protect Your Feet With Shoes and Socks Never go barefoot. Always protect your feet by wearing shoes or hard-soled slippers or footwear. Avoid shoes with high heels and pointed toes. Avoid shoes that expose your toes or heels (such as open-toed shoes or sandals). These types of shoes increase your risk for injury and potential infections. Try on new footwear with the type of socks you usually wear. Do not wear new shoes for more than an hour at a time. Change your socks daily. Look and feel inside your shoes before putting them on to make sure there are no foreign objects orrough areas. Avoid tight socks. Wear natural-fiber socks (cotton, wool, or a cotton-wool blend). Wear special shoes if your health care provider recommends them. Wear shoes/boots that will protect your feet from various weather conditions (cold, moisture, etc.). Make sure your shoes fit properly. If you have neuropathy (nerve damage), you may not notice that your shoes are too tight. Perform the footwear test described below. Footwear Test Use this simple test to see if your shoes fit correctly: Stand on a piece of paper. (Make sure you are standing and not sitting, because your foot changes shape when you stand.) Trace the outline of your foot. Trace the outline of your shoe. Compare the tracings: Is the shoe too narrow? Is your foot crammed into the shoe? The shoe should be at least 1/2 inch longer than your longest toe and as wide as your foot. Proper Shoe Choices The following types of shoes are best for people with diabetes Closed toes and heels Leather uppers without a seam inside At least 1/2 inch extra space at the end of your longest toe Inside of shoe should be soft with no rough areas Outer sole should be made of stiff material Shoes should be at least as wide as your feet Tips for Foot Care in Diabetes Don't wait to treat a minor foot problem if you have diabetes. Follow your health care provider's guidelines and first aid guidelines. Report foot injuries and infections to your health care provider immediately. Check water temperature with your elbow, not your foot. Do not use a heating pad on your feet. Do not cross your legs. Do not self-treat your corns, calluses, or other foot problems. Go to your health care provider or lens dotter to treat these conditions. documented in this encounterF[facility]04-23-2024 Telephone encounter Note * Telephone Encounter - Lindsey Bonilla LPN - 06/19/2023 4:45 PM EDT TC to sister Angie, who states pt is scheduled with Dr. Sparks in [place] for Epilepsy at the [facility] August. Does not want to take him to someone in the clinic because not willing to travel. Lindsey Bonilla LPN [facility]04-[facility] Miscellaneous Notes* Telephone Encounter - Lindsey Bonilla LPN - 06/19/2023 4:45 PM EDT TC to sister Angie, who states pt is scheduled with Dr. Sparks in [place] for Epilepsy at the [facility] August. Does not want to take him to someone in the clinic because not willing to travel. Lindsey Bonilla LPN * Telephone Encounter - Suki Qureshi PA-C - 06/19/2023 10:34 AM EDT Will refill Vimpat 50mg bid for thirty days, but patient will need to see epilepsy for further management as discussed at length following at previous appointment. PDMP website checked and validated. All prescriptions have been APPROPRIATELY filled. No suspiciousactivity was identified. 06/19/2023 by Suki Qureshi PA-C * Telephone Encounter - Sobeida Kelly RN - 06/19/2023 8:10 AM EDT Patient's sister calls and states that she gave patient last of medication today and he is completely out of medication. Please review and advise, Sobeida Kelly RN * Telephone Encounter - Lindsey Bonilla LPN - 06/18/2023 8:46 AM EDT [facility] 03/20/23 with MQ NOV none Refill 03/20/23 with qty: 180 and 1 refills Lindsey Bonilla LPN [facility] Assessment/Plan ASSESSMENT/PLAN: 1. Seizures (HCC) - ICD9: 780.39, ICD10: R56.9 (primary diagnosis) 2. History of stroke - ICD9: V12.54, ICD10: Z86.73 3. History of traumatic brain injury - ICD9: V15.52, ICD10: Z87.820 4. Nonintractable epilepsy without status epilepticus, unspecified epilepsy type (HCC) - ICD9: 345.90, ICD10: G40.909 5. Recurrent syncope - ICD9: 780.2, ICD10: R55 6. Daytime sleepiness - ICD9: 780.54, ICD10: R40.0 7. 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 Patient's sister confused why patient was stopped on Vimpat and switch to Depakote. Patient did not tolerate Depakote 500 mg twice daily and caused him to stop eating, appears as if he was in a daze. After 5 days she stopped this medication and switched back toVimpat 50 mg twice daily. There was original concern that he was extremely fatigued on this medication, but family feels that his fatigue is likely secondary to general deconditioning. Has tried to increase his exercise and activity throughout the day and this seems to be helping. Tolerating [id number] mg twice daily without any issue, has not had any recurrence of syncope or altered mental status. Does have occasional staring episodes but he is distractible with these, not significantly postictal afterwards. Patient was referred to an epilepsy specialist and there was confusion about this referral. That prompted the visit today for additional referral and further direction. New referral wasplaced, referral of Vimpat 50 mg twice daily was given as well. Discussed seizure precautions with family, patient does have 24-hour care at home. Patient scheduled to have blood work obtained in April along with follow-up with primary care. Encouraged follow-up with both cardiology and primary care regularly. Patient and family agreeable to treatment plan of care at this time, questions were answered. Patient to follow-up as needed. Suki Qureshi PA-C * Telephone Encounter - Sobeida Kelly RN - 06/18/2023 8:35 AM EDT Patient has been identified by name and date of : [facility] phones for refill(s): Requested Prescriptions Pending Prescriptions Disp Refills lacosamide (VIMPAT) 50 mg tab 360 tablet 0 Sig: Take 1 tablet by mouth two times a day for 180 days. Date of last office visit in primary care: 03/20/2023 Date of next office visit in primary care: None Please advise. Thank you. Sobeida Kelly RN. documented in this encounterF[facility]04-23-2024 Telephone encounter Note * Telephone Encounter - Suki Qureshi PA-C - 06/19/2023 10:34 AM EDT Will refill Vimpat 50mg bid for thirty days, but patient will need to see epilepsy for further management as discussed at length following at previous appointment. PDMP website checked and validated. All prescriptions have been APPROPRIATELY filled. No suspiciousactivity was identified. 06/19/2023 by Suki Qureshi PA-C [facility] Telephone encounter Note* Telephone Encounter - Sobeida Kelly RN - 06/19/2023 8:10 AM EDT Patient's sister calls and states that she gave patient last of medication today and he is completely out of medication. Please review and advise, Sobeida Kelly RN [facility] Telephone encounter Note* Telephone Encounter - Lindsey Bonilla LPN - 06/18/2023 8:46 AM EDT [facility] 03/20/23 with MQ NOV none Refill 03/20/23 with qty: 180 and 1 refills Lindsey Bonilla LPN [facility] Assessment/Plan ASSESSMENT/PLAN: 1. Seizures (HCC) - ICD9: 780.39, ICD10: R56.9 (primary diagnosis) 2. History of stroke - ICD9: V12.54, ICD10: Z86.73 3. History of traumatic brain injury - ICD9: V15.52, ICD10: Z87.820 4. Nonintractable epilepsy without status epilepticus, unspecified epilepsy type (HCC) - ICD9: 345.90, ICD10: G40.909 5. Recurrent syncope - ICD9: 780.2, ICD10: R55 6. Daytime sleepiness - ICD9: 780.54, ICD10: R40.0 7. 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 Patient's sister confused why patient was stopped on Vimpat and switch to Depakote. Patient did not tolerate Depakote 500 mg twice daily and caused him to stop eating, appears as if he was in a daze. After 5 days she stopped this medication and switched back toVimpat 50 mg twice daily. There was original concern that he was extremely fatigued on this medication, but family feels that his fatigue is likely secondary to general deconditioning. Has tried to increase his exercise and activity throughout the day and this seems to be helping. Tolerating [id number] mg twice daily without any issue, has not had any recurrence of syncope or altered mental status. Does have occasional staring episodes but he is distractible with these, not significantly postictal afterwards. Patient was referred to an epilepsy specialist and there was confusion about this referral. That prompted the visit today for additional referral and further direction. New referral wasplaced, referral of Vimpat 50 mg twice daily was given as well. Discussed seizure precautions with family, patient does have 24-hour care at home. Patient scheduled to have blood work obtained in April along with follow-up with primary care. Encouraged follow-up with both cardiology and primary care regularly. Patient and family agreeable to treatment plan of care at this time, questions were answered. Patient to follow-up as needed. Suki Qureshi PA-C [facility] Telephone encounter Note* Telephone Encounter - Sobeida Kelly RN - 06/18/2023 8:35 AM EDT Patient has been identified by name and date of : [facility] phones for refill(s): Requested Prescriptions Pending Prescriptions Disp Refills lacosamide (VIMPAT) 50 mg tab 360 tablet 0 Sig: Take 1 tablet by mouth two times a day for 180 days. Date of last office visit in primary care: 03/20/2023 Date of next office visit in primary care: None Please advise. Thank you. Sobeida Kelly RN. [facility] Instructions* Patient Instructions* Eliza Zamora MD - 04/30/2023 3:19 PM EST Okay to double portions of food if he will eat it. As long as sugars are staying under 200, no need to cut back on or hold/avoid carbs, including noodles and ice cream. documented in this encounterFostoria City Hospital03-04-2024 History of Present illness Narrative* Eliza Zamora MD - 04/30/2023 3:09 PM EST This note was created using apprupt. Subjective Inna Ortiz is a 68 year old male. Patient presents with: F/U 6 months SUBJECTIVE: Inna Ortiz is a 68 year old year old gentleman here today for 6 month follow up appointment for review of medical conditions. Noted weight stays same now. Eating more. Showed plate of food. Balanced. Gets protein drink, milk and juice in. Sugars mostly 90 to 110 fasting and before supper. Sometimes 160 before supper. BPs staying 90 to 110s over 60s. Got compression stocking that are able to get on. The prescription ones were too tight and not ableto get on him. Will put warmer socks at night. Nails and hair grow fast. Getting hair cut today. Noted 2 seizures noted since December. Can walk without falling. Usually walks slow unless wants to go to his room to watch TV, then hurries. PAST MEDICAL HISTORY Diagnosis Date CONVULSIONS, OTHER [...] nitroglycerin (NITROLINGUAL) 400 mcg/spray spray Dissolve 1 [place] under the tongue every 5 minutes as needed. Lancets lancets Test blood sugar(s) two times daily. Dx: E11.9. Insulin: No No current facility-administered medications for this visit. Review of Systems Objective BP 106/64 Pulse 67 Wt 53.5 kg (118 lb) SpO2 100% BMI 17.43 kg/m Last 5 Encounter Wt Readings: Date: Wt: 04/30/2023 53.5 kg (118 lb) 03/22/2023 53.8 kg (118 lb 9.6 oz) 03/20/2023 53.5 kg (118 lb) 02/05/2023 55 kg (121 lb 4.8 oz) 01/12/2023 53.6 kg (118 lb 3.2 oz) No waist measurement recorded Estimated body mass index is 17.43 kg/m as calculated from the following: Height as of 12/04/22: 175.3 cm (5' 9). Weight as of this encounter: 53.5 kg (118 lb). Last 5 Encounter BP Readings: Date: BP: 04/30/2023 106/64 03/22/2023 102/64 03/20/2023 92/58 02/05/2023 122/74 01/12/2023 122/68 Physical Exam Vitals reviewed. Constitutional: Appearance: He is underweight. Eyes: Conjunctiva/sclera: Conjunctivae normal. Cardiovascular: Rate and Rhythm: Normal rate and regular rhythm. Heart sounds: Normal heart sounds. Comments: Wearing support socks Pulmonary: Effort: Pulmonary effort is normal. Breath sounds: Normal breath sounds. Musculoskeletal: Right lower leg: Edema present. Left lower leg: No edema. Skin: General: Skin is warm and dry. Neurological: General: No focal deficit present. Mental Status: He is alert and oriented to person, place, and time. Comments: Stands steady Psychiatric: Mood and Affect: Affect is blunt. Behavior: Behavior is cooperative. Comments: Non verbal but responds to questions. Takes deep breath with instruction. Alert through appointment. Not falling asleep during appointment as before. Component Latest Ref Rng & Units 10/20/2022 12/04/2022 04/04/2023 Protein, Total 6.3 - 8.0 g/dL 7.0 6.8 7.2 Albumin 3.9 - 4.9 g/dL 4.4 4.3 4.6 Calcium 8.5 - 10.2 mg/dL 9.7 9.4 9.9 Bilirubin, Total 0.2 - 1.3 mg/dL 0.4 0.5 0.7 Alkaline Phosphatase 38 - 113 U/L 76 88 80 AST 14 - 40 U/L 25 15 21 ALT 10 - 54 U/L 18 9 (L) 13 Glucose 74 - 99 mg/dL 95 94 101 (H) BUN 9 - 24 mg/dL 18 15 16 Creatinine 0.73 - 1.22 mg/dL 0.86 0.88 0.99 Sodium 136 - 144 mmol/L 139 142 140 Potassium 3.7 - 5.1 mmol/L 4.5 4.3 4.0 Chloride 97 - 105 mmol/L 104 105 100 CO2 22 - 30 mmol/L 24 29 26 Anion Gap 9 - 18 mmol/L 11 8 (L) 14 eGFR >=60 mL/min/1.73m 96 95 84 WBC 3.70 - 11.00 k/uL 7.36 6.60 RBC 4.20 - 6.00 m/uL 5.43 5.58 Hemoglobin 13.0 - 17.0 g/dL 15.1 15.8 Hematocrit 39.0 - 51.0 % 48.6 48.7 MCV 80.0 - 100.0 fL 89.5 87.3 MCH 26.0 - 34.0 pg 27.8 28.3 MCHC 30.5 - 36.0 g/dL 31.1 32.4 RDW-CV 11.5 - 15.0 % 13.7 13.7 Platelet Count 150 - 400 k/uL 186 223 MPV 9.0 - 12.7 fL 10.9 10.9 Absolute nRBC <0.01 k/uL <0.01 <0.01 Cholesterol, Total <200 mg/dL 141 Triglyceride <150 mg/dL 56 HDL Cholesterol >39 mg/dL 57 Non HDL Cholesterol <130 mg/dL 84 Fasting Time hrs 15 VLDL Cholesterol <30 mg/dL 11 TC:HDL Ratio <5.10 2.47 LDL Cholesterol <100 mg/dL 73 LDL:HDL Ratio <2.54 1.28 Hemoglobin A1C 4.3 - 5.6 % 5.3 5.3 Estimated Average Glucose mg/dL 105 105 Vitamin D 25 Hydroxy 31.0 - 80.0 ng/mL 134.2 (H) 60.1 Magnesium 1.7 - 2.3 mg/dL 2.3 Assessment and Plan Encounter Diagnosis ICD-10-CM 1. Type 2 diabetes mellitus with polyneuropathy (HCC) E11.42 HGB A1C COMP METABOLIC PANEL LIPID PANEL BASIC Glucose and HgA1C have been normal or glucose just over 100. Continue monitoring. Does not need to be tight with diet now 2. Underweight R63.6 Weight averaging 118 pounds.Encouraged sister to increase portions sizes and not worry about limiting carbs given his weight and tightly controlled DM 3. History of hypertension Z86.79 BP still low normal without meds. Stay of BP meds. 4. Vitamin D deficiency E55.9 VITAMIN D 25 HYDROXY Well replaced now. Continue dose 5. Cardiomyopathy, nonischemic (HCC) I42.8 Clinically stable on current meds 6. Encounter for long-term current use of medication Z79.899 HGB A1C COMP METABOLIC PANEL CBC LIPID PANEL BASIC VITAMIN D 25 HYDROXY Above issues addressed with patient. Patient involved in shared decision making for management of medical issues. History and medications reviewed. Epic updated as needed Refills and/or prescriptions taken care of and meds adjusted as indicated after reviewed history, exam and labs. Health Maintenance reviewed. Updated record and/or ordered tests as recorded. Encouraged on efforts at healthy diet and regular exercise and adequate sleep. Eliza Zamora MD documented in this encounterFostoria City Hospital12-11-2023 History of Present illness Narrative* Dl Wheeler MD - 02/05/2023 12:14 PM EST Images from the original note were not included. Dl Wheeler MD Interventional Cardiology [address] [place] [address] Chief Complaint Patient presents with: Follow Up: [...] cardiac medication because of the systolic blood pr essures down to the 80s He is maintained [...] Onset Coronary Artery Disease Father Heart Father [place] AT AGE 63 COPD Sister Asthma Sister [...] nitroglycerin (NITROLINGUAL) 400 mcg/spray spray Dissolve 1 [place] under the tongue every 5 minutes as [...] to correct any errors. documented in this encounterFostoria City Hospital12-08-2023 Miscellaneous Notes* Telephone Encounter - Kassy Almazan LPN - 02/02/2023 10:26 AM EST Last seen pcp 01/01/23. Next appt with pcp 04/30/23. * Telephone Encounter - Xiomy Herbert - 02/02/2023 8:59 AM EST Patient has been identified by name and date of : Yes Requested Prescriptions Pending Prescriptions Disp Refills simvastatin (ZOCOR) 20 mg tablet 90 tablet 3 Sig: Take 1 tablet by mouth daily at bedtime. RX INSTRUCTIONS: Patient aware RX will be sent to pharmacy. No need to notify patient. Xiomy Herbert documented in this encounterFostoria City Hospital12-04-2023 Miscellaneous Notes* Telephone Encounter - Lindsey Bonilla LPN - 01/29/2023 11:36 AM EST TC to sister Angie, who voiced understanding about seeing the epilepsy clinic. States she wants tosee someone at [facility]. Advised her that we can send the referral over, however we will need the information. Agreeable and will send via the information. Lindsey Bonilla LPN * Telephone Encounter - Mal Carpio Jr., MD - 01/26/2023 4:51 PM EST Pt should follow up with epilepsy. Please aid in making appt. Mal Carpio MD * Telephone Encounter - Lindsey Bonilla LPN - 01/26/2023 4:08 PM EST Pt sister calls and states that pt was taking the Depakote and it gave him side effects such as glassy eyes and lead feet. Sister made the call to take him off of the depakote and restart on the Vimpat 50 mg as before. Lindsey Bonilla LPN documented in this encounterFostoria City Hospital11-21-2023 Miscellaneous Notes* Telephone Encounter - Indy Mendieta RN - 01/16/2023 9:15 AM EST Holter monitor results on chart and have been signed by . Indy Mendieta RN * Telephone Encounter - Indy Mendieta RN - 12/14/2022 2:06 PM EDT Called and spoke with Angie. Made the suggestion that she reach out to [facility] about compression stocking sizing. Patient currently has monitor on. Will follow up in a month for results. Indy Mendieta RN * Telephone Encounter - Shannan Butler - 12/12/2022 8:15 AM EDT Patient sister Angie called she said his compression socks are way to tight, she can't get them onhim, and he has a 30 day heart monitor on it was put on Mon 12/11 she wants to know what to do after that? Will Dr Wheeler call him? She can be called at [phone] please advise documented in this encounterFostoria City Hospital11-06-2023 History of Present illness Narrative* Jean Carlos Mirza RN - 01/01/2023 3:20 PM EST TRANSITION CARE MANAGEMENT (TCM) FOLLOW-UP NOTE Provider Action/FYI: TCM Chart review. Pt had PCP f/u today. Telephone outreach deferred. Appointments for Next 60 Days Date Time Provider Location Dept Phone 01/01/2023 9:00 AM ELIZA ZAMORA [facility] [phone] 01/12/2023 2:00 PM MAL CARPIO JR [facility] [phone] Discharge Network Status: In-Network Discharge Summary: Pt discharged from [facility] on 12/06/22. Admitted for: Syncope and collapse Managing Jeweler plan for next outreach: No further follow up needed at this time QUOC Education Ordered -: No Signature Jean Carlos Mirza RN January 01, 2023 documented in this encounterFostoria City Hospital10-17-2023 Miscellaneous Notes* Telephone Encounter - Lindsey Bonilla LPN - 12/12/2022 1:[address] to sisterAngie. I advised of below and they would be okay seeing epilepsy, need consultplaced. Put patient on cancellation list for as well. Angie states that they were told tofollow with Dr. Carpio and not the epilepsy clinic. Please place consult and advise. Lindsey Bonilla LPN * Telephone Encounter - Mal Carpio Jr., MD - 12/12/2022 1:07 PM EDT For access, recommend patient follow up with Epilepsy. Mal Carpio MD * Telephone Encounter - Sasha Saravia RN - 12/12/2022 8:29 AM EDT Sister (Angei) calls to request a sooner follow up for patient with Dr. Carpio than April 062023. Patient diagnosed with focal epilepsy at recent [facility] stay and she feels thatappointment is too far out. Hospital discharge instructions say to follow up in 3 to 6 months. Angie requests call back from Dr. Carpio's office at [phone]. Sasha Saravia RN documented in this encounterFostoria City Hospital10-14-2023 NoteHNO ID: [id number] Author: Note, Interface Service: ? Author Type: ? Type: Progress Notes Filed: 12/09/2022 5:06 AM Note Text: Epic Scheduled Downtime: 12/09/2022 1:00:00 AM to 12/09/2022 1:28:00 [facility] Miscellaneous Notes* Telephone Encounter - Jaqueline Sepulveda - 12/08/2022 1:10 PM EDT PATIENT INFORMATION Record ID: [id number] [facility] [place]: [place] Attending: Deisi Churchill Center: Epilepsy Center INSTRUCTIONS All Clear SN to remind patient of next upcoming appointment date, time, location All Clear All Clear All Clear SURVEY INFORMATION Medical/Nurse Jig And Fixture Repairer: Jaqueline Be 1. Your discharge instructions are important in [...] sleeping more than usual. documented in this encounterFostoria City Hospital10-11-2023 NoteHNO ID: [id number] Author: Lissette Anders RN Service: Care Management [...] Physician Primary Care Physician Name/Phone: Dr Zamora [phone] Additional Information: Patient is discharging home with assistance of sister Angie. Sister to provide discharge transportation. SIGNATURE: Lissette Anders RN PATIENT NAME: Inna Ortiz DATE: December 06, 2022 TIME: 11:36 AM CONTACT #: [phone] Medical Center10-11-2023 NoteHNO ID: [id number] Author: Lissette Anders RN Service: Care Management Author Type: Registered Nurse Type: Care Mgt Progress Note Filed: 12/06/2022 9:32 AM Note Text: CARE MANAGEMENT PROGRESS NOTE SERVICE DATE: 12/06/2022 SERVICE TIME: 9:31 AM LOS: 2 days Post-Acute Discharge Planning Patient Goal(s): General wellness, Be able to go home [place] of Choice Explained: Discharge Planning Participant(s): Guardian Patient/Family Comments: Anticipated # of Days Until Discharge: Transport at Discharge: Transportation Arrangements: Car Destination: home Needs Prior to Discharge: Needs Prior to Discharge: OT/PT Evaluation, To Be Determined, Discharge Prescriptions IMM Follow Up Copy Given: Yes Copy given to:: Patient Grey Washer Grey Washer Name/Relationship: Sister/Legal Guardin Angie Method: By Phone (verbal confirmation obtained.) Post-Acute Discharge Plan: Patient from home with sister who is caregiver and legal guardian. Family to provide discharge transportation. Planned admission. No CM needs at this time. Will follow for transitional care planning. SIGNATURE: Lissette Anders RN PATIENT NAME: Inna Ortiz DATE: December 06, 2022 TIME: 9:31 AM PAGER/CONTACT #: [phone] Medical Center 12-05-2022 NoteHNO ID: [id number] Author: Michelle Ca APRN.RELIEF WORKER Service: Neurology Adult Epilepsy Author Type: Nurse Practitioner Type: Progress Notes Filed: 12/05/2022 9:41 AM Note Text: Attestation signed by Deisi Churchill MD at 12/05/2022 1:16 PM EPILEPSY CENTER ATTENDING NOTE [facility] Epilepsy Monitoring Unit Progress Note Date of Service: December 05, 2022 [facility] STAFF PHYSICIAN NOTE OF PERSONAL INVOLVEMENT IN CARE Patient was interviewed and examined by me on separate attending rounds this morning with nurse practitioner, Michelle Ca CNP. I have reviewed the history, exam, diagnosis, and plan obtained and documented by the nurse practitioner as above. I performed my own [id number] assessment and personally participated in the jules [...] treatment plan. Deisi Churchill MD Staff Physician [facility] Personal Pager and Cell Office: [phone] For urgent EEG review, call the Epilepsy Continuous Monitoring Unit (ECMU) at [facility] [phone] or [phone]. For overnight issues, 7pm to 7am, [place] [phone]. For in house night coverage of emergencies, call [facility] pager [phone]. NEUROLOGY EPILEPSY MONITORING UNIT (EMU) PROGRESS NOTE NIGHT AND WEEKEND COVERAGE: After 5 pm and over the weekends, please page [phone] to contact the epilepsy provider semiconductor processor Subjective No complaints. No seizures overnight. HOME [...] standing. SEIZURE DETECTION SOFTWARE ON: Yes ? communication electronic technician has been notified: Yes ? lumber sorter machine has been notified: Yes EXAM: General: awake and answers simple questions, o (more content not included)... 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 04/23/20152022 Hypokalemia 06/30/2009 04/21/2014 Family history of diabetes mellitus 10/11/2004 04/12/2018 Obesity, unspecified 10/10/2004 017 Other abnormal blood chemistry 10/10/2004 04/21/2014 Other convulsions 10/10/2004 04/21/2014 documented as of this encounter (statuses as of 12/08/2022) [facility]10-09-[facility] History of Past illness Narrative* Problem Noted Date Diagnosed Date Resolved Date Seizure-like activity 12/04/20222022 Occult GI bleeding 08/28/2019 1 Left inguinal hernia 05/16/2016 017 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 04/23/20152022 Hypokalemia 06/30/2009 04/21/2014 Family history of diabetes mellitus 10/11/2004 04/12/2018 Obesity, unspecified 10/10/2004 017 Other abnormal blood chemistry 10/10/2004 04/21/2014 Other convulsions 10/10/2004 04/21/2014 documented as of this encounter (statuses as of 12/12/2022) [facility] History of Past illness Narrative* Problem Noted Date Diagnosed Date Resolved Date Seizure-like activity 12/04/20222022 Occult GI bleeding 08/28/2019 Left inguinal hernia 05/16/2016 017 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 04/23/20152022 Hypokalemia 06/30/2009 04/21/2014 Family history of diabetes mellitus 10/11/2004 04/12/2018 Obesity, unspecified 10/10/2004 017 Other abnormal blood chemistry 10/10/2004 04/21/2014 Other convulsions 10/10/2004 04/21/2014 documented as of this encounter (statuses as of 01/02/2023) [facility] History of Past illness Narrative* Problem Noted Date Diagnosed Date Resolved Date Seizure-like activity 12/04/20222022 Occult GI bleeding 08/28/2019 1 Left inguinal hernia 05/16/2016 017 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 04/23/20152022 Hypokalemia 06/30/2009 04/21/2014 Family history of diabetes mellitus 10/11/2004 04/12/2018 Obesity, unspecified 10/10/2004 017 Other abnormal blood chemistry 10/10/2004 04/21/2014 Other convulsions 10/10/2004 04/21/2014 documented as of this encounter (statuses as of 01/09/2023) [facility] History of Past illness Narrative* Problem Noted Date Diagnosed Date Resolved Date Seizure-like activity 12/04/20222022 Occult GI bleeding 08/28/2019 1 Left inguinal hernia 05/16/2016 017 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 04/23/20152022 Hypokalemia 06/30/2009 04/21/2014 Family history of diabetes mellitus 10/11/2004 04/12/2018 Obesity, unspecified 10/10/2004 017 Other abnormal blood chemistry 10/10/2004 04/21/2014 Other convulsions 10/10/2004 04/21/2014 documented as of this encounter (statuses as of 01/16/2023) [facility] History of Past illness Narrative* Problem Noted Date Diagnosed Date Resolved Date Seizure-like activity 12/04/20222022 Occult GI bleeding 08/28/2019 1 Left inguinal hernia 05/16/2016 017 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 04/23/20152022 Hypokalemia 06/30/2009 04/21/2014 Family history of diabetes mellitus 10/11/2004 04/12/2018 Obesity, unspecified 10/10/2004 017 Other abnormal blood chemistry 10/10/2004 04/21/2014 Other convulsions 10/10/2004 04/21/2014 documented as of this encounter (statuses as of 01/29/2023) [facility] History of Past illness Narrative* Problem Noted Date Diagnosed Date Resolved Date Seizure-like activity 12/04/20222022 Occult GI bleeding 08/28/2019 1 Left inguinal hernia 05/16/2016 017 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 04/23/20152022 Hypokalemia 06/30/2009 04/21/2014 Family history of diabetes mellitus 10/11/2004 04/12/2018 Obesity, unspecified 10/10/2004 017 Other abnormal blood chemistry 10/10/2004 04/21/2014 Other convulsions 10/10/2004 04/21/2014 documented as of this encounter (statuses as of 02/02/2023) [address]09-2023 History of Past illness Narrative* Problem Noted Date Diagnosed Date Resolved Date Seizure-like activity 12/04/20222022 Occult GI bleeding 08/28/2019 1 Left inguinal hernia 05/16/2016 017 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 04/23/20152022 Hypokalemia 06/30/2009 04/21/2014 Family history of diabetes mellitus 10/11/2004 04/12/2018 Obesity, unspecified 10/10/2004 017 Other abnormal blood chemistry 10/10/2004 04/21/2014 Other convulsions 10/10/2004 04/21/2014 documented as of this encounter (statuses as of 02/05/2023) [facility] History of Past illness Narrative* Problem Noted Date Diagnosed Date Resolved Date Seizure-like activity 12/04/20222022 Occult GI bleeding 08/28/2019 1 Left inguinal hernia 05/16/2016 017 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 04/23/20152022 Hypokalemia 06/30/2009 04/21/2014 Family history of diabetes mellitus 10/11/2004 04/12/2018 Obesity, unspecified 10/10/2004 017 Other abnormal blood chemistry 10/10/2004 04/21/2014 Other convulsions 10/10/2004 04/21/2014 documented as of this encounter (statuses as of 06/01/2023) [facility] History of Present illness Narrative* Luiza Solares, HOBBING MACHINE OPERATOR.RELIEF WORKER - 11/24/2022 4:37 PM EDT Please route this encounter to the EMU Scheduling Pool (P EMU) or PMU Scheduling Pool (P PMU) through LOS & Follow up PHASE 1.0 AND 1.5 ORDER SYNOPSIS Patient: Inna Ortiz ([id number]) Best contact number: [phone] Insurance: Payor: [employer] / [facility] / Product Type: HMO / Scheduling Team: Please call for adult patients: Nicol Jensen ([phone]) Michelle Velasco ([phone]) Surinder Ramirez ([phone]) Griselda Santana([phone]) Rosi Cai([phone]) Please call for pediatric patients: Griselda Santana ([phone]) Nicol Jensen ([phone]) Michelle Velasco ([phone]) Surinder Ramirez ([phone]),Rosi Cai([phone]) 11/24/2022 Admission Type EMU Adult Number of Days requested 3 Pool House (Adults only) Admit Priority Routine PURPOSE 11/24/2022 Patient Being Considered for Epilepsy Surgery? No VEEG recommended to assess seizure burden, address new & concerning syymptom- sign complex, and/or clarify syndromic epilepsy diagnosis? No 11/24/2022 Sphenoidal monitoring No Electrode placement Standard Appointments and Tests EPIL EEG LEAD PLACEMENT EPIL VEEG ADMIT TO EMU/PMU Consultations None Please route this encounter to the EMU Scheduling pool (P EMU) or PMU Scheduling pool (P PMU) through LOS & Follow up Scheduling coordinators: For all VNS patients being scheduled for [place], please schedule VNS off/on office visits. documented in this encounterFostoria City Hospital09-29-2023 History of Present illness Narrative* Mal [...] further evaluate will get EEG (they request [facility]). Noah not believe patient will tolerate [...] during PSG. They are requesting studies at [facility]. Again, without subjective history provided by [...] at OSH and per report unremarkable waking EEG. Sleep study performed at OSH ([facility]) and during which pt only slept [...] nitroglycerin (NITROLINGUAL) 400 mcg/spray spray Dissolve 1 [place] under the tongue every 5 minutes as [...] Onset Coronary Artery Disease Father Heart Father [place] AT AGE 63 COPD Sister Asthma Sister [...] that per the sleep study performed at [facility] it appears pt is not sleeping [...] of epilepsy to help with admit to [facility] EMU. Mal Carpio MD I spent a total of 33 minutes on the date of the service which included preparing to see the patient, [id number] patient care, completing clinical documentation, obtaining and/or reviewing separately obtained history, performing a medically appropriate examination, counseling and educating the pat ient/family/caregiver, ordering medications, tests, or procedures, communicating with other HCPs (not separately reported), and communicating results to the patient/family/caregiver. documented in this encounterFostoria City Hospital09-21-2023 Miscellaneous Notes* Telephone Encounter - Tayla Goel APRN.CNS - 11/16/2022 4:48 PM EDT Noted, ok. * Telephone Encounter - Lilli Gramajo RN - 11/16/2022 4:13 PM EDT Adry @ [facility] calling to say she is faxing forms to be completed for patient's request for diabetic shoes. [facility] by Dr. Yepez on 10/19. The fax cover will specify what needs completed and faxed back. Lilli Gramajo RN documented in this encounterFostoria City Hospital08-25-2023 Instructions* Patient Instructions* Eliza Zamora MD - 10/20/2022 4:37 PM EDT Stop Vitamin D. Will decide when to resume after labs done. documented in this encounterFostoria City Hospital08-25-2023 History of Present illness Narrative* Eliza Zamora MD - 10/20/2022 4:16 PM EDT This note was created using Dragon Armyter. Subjective Inna Ortiz is a 67 year [...] 120s with a few 130 to 140. [id number]. Staying hydrated. Sips water through the day [...] nitroglycerin (NITROLINGUAL) 400 mcg/spray spray Dissolve 1 [place] under the tongue every 5 minutes as [...] indicated. Eliza Zamora MD documented in this encounterFostoria City Hospital08-15-2023 Miscellaneous Notes* Telephone Encounter - Indy Mendieta RN - 10/10/2022 2:50 PM EDT [phone] and notified that we have received their fax and that it has been forwarded on to Dr. Wheeler. Request for documentation from [facility] faxed to [phone]. Indy Mendieta RN * Telephone Encounter - Indy Mendieta RN - 10/09/2022 4:29 PM EDT Fide Davison RN 1 hour ago (2:54 PM) [facility] called in requesting confirmation of receipt of [...] Thank you * Telephone Encounter - Indy Mendieta RN - 10/03/2022 12:20 PM EDT See other encounter regarding BP cuff. Indy Mendieta RN * Telephone Encounter - Juliette Serrano - 10/03/2022 11:52 AM EDT Pharmacy called in stating he needs a Blood pressure monitor e-scripted instead of a cuff. Please call Norma @ [phone] [facility]. * Telephone Encounter - Diana Lynch RN - 10/02/2022 4:31 PM EDT Form faxed to [facility] for Dr. Wheeler to sign and fax to Lyndon Garcia. Diana Lynch RN * Telephone Encounter - Kristen Ramirez LPN - 10/02/2022 10:58 AM EDT Bina with [facility] [employer] called to ask if medicaid form for compression stockings was received?They will need office visit notes explaining why compression garment is needed. Fax number for IdrisKayliet is [phone] or [phone]. Kristen Ramirez LPN documented in this encounterFostoria City Hospital08-14-2023 Miscellaneous Notes* Telephone Encounter - Indy Mendieta RN - 10/09/2022 4:29 PM EDT See other open encounter regarding compression stockings. Indy Mendieta RN * Telephone Encounter - Fide Davison RN - 10/09/2022 2:48 PM EDT [facility] called in requesting confirmation of receipt of [...] prior authorization. Thank you documented in this encounterFostoria City Hospital07-20-2023 Miscellaneous Notes* Telephone Encounter - Nataliia Chakraborty - 09/14/2022 10:14 AM EDT Received voice messages from [facility]. Valorie is with the precert department at [facility]. Requesting an order and referral for EEG, MSLT and PSG. Emailed [facility] precert department to confirm they have the added referrals. Spoke with [facility] sleep department. The requested EEG, MSLT and PSG orders be faxed to [facility] sleep lab. . The [facility] department discuss the patient requires an order for the patient to take his daily medication during testing. The RX order was faxed by the [facility] sleep lab on September 12. Will check with the provider's clinical staff. The order needs signed and faxed back to fax# [phone]. documented in this encounterFostoria City Hospital07-17-2023 Miscellaneous Notes* Telephone Encounter - Diana Lynch RN - 09/11/2022 10:47 AM EDT Spoke to Angie. States she stopped the medication and pt symptoms are resolved. Diana Lynch RN * Telephone Encounter - Indy Mendieta RN - 09/11/2022 8:26 AM EDT Images from the original note were not included. Dl Wheeler MD 4 days ago Stop the medication Camille * Telephone Encounter - Fide Davison RN [...] Please review and advise. Thank you. Asiya Davison RN documented in this encounterFostoria City Hospital07-12-2023 Miscellaneous Notes* Telephone Encounter - Lindsey Bonilla LPN - 09/06/2022 4:59 PM EDT PSG order resent to [facility]. Lindsey Bonilla LPN * Telephone Encounter - Lindsey Bonilla LPN - 09/06/2022 2:35 PM EDT TC to Luis Enrique. Left VM with below information and gave verbal over the phone to use hypersomnia as theDX. Lindsey Bonilla LPN * Telephone Encounter - Ilda Edwards RN - 09/06/2022 9:28 AM EDT Luis Enrique Stinson at [facility] Coding Department calling regarding pt's ordered polysomnogram. She reports that thecurrent diagnosis indicated for the test , daytime sleepiness (R40.0) is not covered by pt's insurance. Reports that the diagnosis of hypersomnia G47.10 is covered. Asking if provider authorizes thiscode to be used for test? Please call Luis Enrique JaramilloJose Hunt at [phone]. Thank you. documented in this encounterFostoria City Hospital07-10-2023 History of Present illness Narrative* Dl Wheeler MD - 09/04/2022 12:58 PM EDT Images from the original note were not included. Dl Wheeler MD Interventional Cardiology [facility] [address], [place] [address] [phone] Chief Complaint Patient presents with: Established Patient [...] Onset Coronary Artery Disease Father Heart Father [place] AT AGE 63 COPD Sister Asthma Sister [...] nitroglycerin (NITROLINGUAL) 400 mcg/spray spray Dissolve 1 [place] under the tongue every 5 minutes as [...] to correct any errors. documented in this encounterFostoria City Hospital07-05-2023 Miscellaneous Notes* Telephone Encounter - Shannan [...] refills Shannan Kang LPN documented in this encounterFostoria City Hospital06-14-2023 Instructions* Patient Instructions* Eliza Zamora MD - [...] to get BP up. documented in this encounterFostoria City Hospital06-14-2023 History of Present illness Narrative* Eliza Zamora MD - 08/09/2022 9:41 AM EDT This note was created using apprupt. Subjective Inna Ortiz is a 67 year [...] nitroglycerin (NITROLINGUAL) 400 mcg/spray spray Dissolve 1 [place] under the tongue every 5 minutes as [...] Height as of 03/10/22: 175.3 cm (5' 9). Weight as of this encounter: 53.1 kg [...] loss. Eliza Zamora MD documented in this encounterFostoria City Hospital06-06-2023 Miscellaneous Notes* Telephone Encounter - Laura Newton - 08/01/2022 8:20 AM EDT Patient is out of his medication. * Telephone Encounter - Laura Newton - 08/01/2022 8:19 AM EDT Pharmacy verified in [facility] Patient has been identified by name and [...] (123 lb) Not applicable Please advise. Laura Newton documented in this encounterFostoria City Hospital05-01-[address] Samuel Bustamante June 26, 2022 10:44pm Note Date/Time June 26, 2022 7:03pm [facility] Medical Records Department [address] [place] [address] Emergency Department Summary 06/26/22 MR#: [id number] Acct: [id number] Name: INNA ORTIZ Rep #:[id number] : 1955 67 From: Ruperto Baker MD PCP: Dr. Eliza Zamora MD Status:RE G ER Location: ED HPI History of Present Illness Chief Complaint: Syncope Narrative Narrative: Patient is nonverbal, most of the history is provided by his sister constantino ESCALERA and her significant other who care for him at home. Over the past 2 or 3 days, he has had 3 syncopal episodes, all of which have occurred while he was on the toilet. Some of them he appeared to be straining, others not. He is a diabetic, but they have not checked his blood pressure or his blood sugar aroundthe time of any of these episodes, the last of which happened today. They also state he has been walking but staggering sometimes and seeming weak, decreased activity, and cold lately. Family notes that 1 day his leg was blue he was so cold but this has been going on for weeks, they are putting compression stockings on him to increase his circulation due to the cold. No fevers or chills. He has been drinking fluids that they have been pushing, and they have been pushing quite a bit of fluids, 84 ounces per day or more. Patient cannot provide history, this is baseline for him, and they state neurologically he is at his baseline at this time of evaluation. 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 TBI (traumatic brain injury) Type 2 diabetes mellitus Urinary incontinence Home Medications aspirin 81 mg chewable tablet 81 mg PO DAILY@0800 05/30/16 [History Last Taken 03/27/22] simvastatin 20 mg tablet 20 mg PO QHS 04/04/17 [History Last Taken 04/27/21] nitroglycerin 400 mcg/spray translingual 0.4 mg translingual Q3-5M PRN Cardiac/Chest Pain #4.9 grams 10/15/18 [Rx Last Taken Unknown] capsaicin-methyl salicylate-menthol topical cream 1 applic topical TID PRN ARTHRITIS 04/28/21 [History Last Taken 04/27/21] cholecalciferol (vitamin D3) 25 mcg (1,000 unit) capsule 25 mcg PO DAILY 04/28/21 [History Last Taken 04/27/21] omeprazole 40 mg capsule,delayed release 40 mg PO DAILY GERD 04/28/21 [History Last Taken 04/28/21] oxybutynin chloride 10 mg tablet,extended release 24 hr 10 mg PO DAILY BLADDER 04/28/21 [History Last Taken 04/28/21] cyanocobalamin (vitamin B-12) 1,000 mcg capsule 1,000 mcg PO DAILY 09/29/21 [History Last Taken Unknown] fluticasone propionate 50 mcg/actuation nasal spray,suspension (Flonase Allergy Relief) 2 spray intranasal DAILY 09/29/21 [History Last Taken Unknown] glucosamine-chondroitin 250 mg-200 mg tablet (Osteo Bi-Flex) 2 tab PO QPC 09/29/21 [History Last Taken Unknown] docusate sodium 50 mg capsule 50 mg PO BID 03/27/22 [History Last Taken Unknown] multivitamin (Daily Multi-Vitamin tablet) 1 tab PO DAILY 04/05/22 [History Last Taken Unknown] Allergy/AdvReac Type Severity Reaction Status Date / Time cefdinir Allergy Rash Verified 06/26/22 18:38 nitrofurantoin Allergy Rash Verified 06/26/22 18:38 [From Macrobid] BANDAR Inhibitors AdvReac Severe hypotension, Verified 06/26/22 18:38 cough Family History Mother CAD (coronary artery disease) Diabetes Hypertension Father Myocardial infarction, Onset Age: 68 Surgical History Hx of inguinal hernia repair Social History Smoking Status: Never smoker alcohol intake: never substance use type: does not use caffeine: Yes Type: carbonated beverages ROS ROS ED Review of Systems ROS Unobtainable: due to mental condition EXAM Physical Exam Const Vital Signs: 06/26/22 18:35 06/26/22 18:54 06/26/22 18:55 Temperature 97.2 F L Temperature Source Temporal Pulse Rate 81 85 Pulse Rate [Lying] Pulse Rate [Sitting (for 1 minute prior to obtaining)] Pulse Rate [Standing (for 1 minute prior to obtaining)] Respiratory Rate 16 25 H Respiratory Effort Normal Respiratory Pattern Normal Blood Pressure 143/86 H 136/68 H Blood Pressure [Lying] Blood Pressure [Sitting (for 1 minute prior to obtaining)] Blood Pressure [Standing (for 1 minute prior to obtaining)] Blood Pressure Mean 105 90 Blood Pressure Mean [Lying] Blood Pressure Mean [Sitting (for 1 minute prior to obtaining)] Blood Pressure Mean [Standing (for 1 minute prior to obtaining)] Pulse Ox 100 100 Oxygen Delivery Method Room Air Room Air 06/26/22 20:41 06/26/22 22:03 06/26/22 22:04 Temperature Temperature Source Pulse Rate 82 75 Pulse Rate [Lying] 78 Pulse Rate [Sitting (for 1 minute prior to obtaining)] 77 Pulse Rate [Standing (for 1 minute prior to obtaining)] 75 Respiratory Rate 28 H 17 Respiratory Effort Respiratory Pattern Blood Pressure 109/63 108/60 Blood Pressure [Lying] 101/67 Blood Pressure [Sitting (for 1 minute prior to obtaining)] 110/66 Blood Pressure [Standing (for 1 minute prior to obtaining)] 108/60 Blood Pressure Mean 78 76 Blood Pressure Mean [Lying] 78 Blood Pressure Mean [Sitting (for 1 minute prior to obtaining)] 80 Blood Pressure Mean [Standing (for 1 minute prior to obtaining)] 76 Pulse Ox 96 99 Oxygen Delivery Method Room Air Room Air Positive well nourished and well developed General Appearance ED: well developed and NAD HEENT Reports moist mucous membranes normocephalic and atraumatic Eyes PERRL and EOMs intact bilaterally Neck full ROM and supple Resp normal respiratory effort and clear to auscultation bilaterally Cardio regular rate, regular rhythm and no murmurs Rate: Negative for tachycardic GI non-tender and non-distended Auscultation: normoactive bowel sounds Palpation: soft Back/Spine no CVA tenderness General Back: other FROM Extremity normal to inspection General Extremety ED: Negative for edema, pulses abnormal or tenderness General Extremity: Negative for edema or pulses abnormal Neuro CN's II-XII intact bilaterally and no sensory deficits noted Neuro Narrative: Nonverbal. At baseline per family. Does follow some commands, does a better job following commands for family that he does for me. Sensorium / Orientation: awake and alert Motor Exam: strength 5/5 throughout Skin no rashes or lesions noted and no wounds MDM MDM MDM Narrative Medical decision making narrative: Patient's history is consistent with vasovagal syncopal episodes, since every single 1 of these episodes has occurred on the toilet. However, as family states, he does not usually pass out when he has to go to the bathroom prior to this weekend. Therefore I obtained a work-up including a CT of the head given that he has a history of a cerebral aneurysm and had some issues walking recently, those images appear to show no acute hemorrhage or asymmetry, radiology in agreement and I agree with their interpretation; differential also includes dehydration, metabolic disturbance, anemia, primary cardiac etiology, infection including pneumonia or urinary tract infection. Basically all of the stuff is unremarkable except for some prerenal azotemia, and we did give him a liter of fluids empirically while we were awaiting the work-up. His vital signsremained stable. I had nursing do orthostatics after the fluids were done. They are normal/negative. Reassured, I will discharge them home to encourage fluids and close outpatient follow-up especially if he continues to have episodes but I do not think he needs to be admitted for this at this time, as I do not classify this as a high risk syncope. It is noted that he does have a history of congestive heart failure, power of banking attorney states he has an ejectionfraction of 35% the last time it was measured (last echo here was 02/27/2019, EF was 45%). He is not in acute congestive heart failure right now nor is he having any concerning cardiac findings on ancillary testing nor dysrhythmias here. As I discussed with family, since each of these episodes occurred while he was on the toilet, I do think this is reasonable to have reevaluated as an outpatient. History & Record Review Additional record(s) reviewed:: Prior outpatient record (cardiology visit 01/2019, echo 2019) Lab Data Attestation: I reviewed the patient's lab results. Labs: Laboratory Results - last 24 hr 06/26/22 06/26/22 06/26/22 19:06 19:06 19:30 WBC 6.9 RBC 5.11 Hgb 14.2 Hct 44.7 MCV 87.5 MCH 27.8 MCHC 31.8 L RDW Std Deviation 44.6 H RDW Coeff of Johnie 13.8 Plt Count 195 MPV 10.7 Immature Gran % (Auto) 0.300 Neut % (Auto) 46.7 L Lymph % (Auto) 38.9 Mora % (Auto) 9.6 Eos % (Auto) 3.5 Baso % (Auto) 1.0 Absolute Neuts (auto) 3.2 Absolute Lymphs (auto) 2.68 Nucleated RBC % 0 Sodium 143 Potassium 4.0 Chloride 107 Carbon Dioxide 30.0 Anion Gap 6 BUN 19 H Creatinine 1.06 Estim Creat Clear Calc 54.29 Est GFR (MDRD) Af Amer 90 Est GFR (MDRD) Non-Af 74 BUN/Creatinine Ratio 17.9 Glucose 93 Calcium 9.0 Total Bilirubin 0.30 AST 14 L ALT 19 Alkaline Phosphatase 72 Troponin I High Sens 6 Total Protein 6.8 Albumin 3.5 Globulin 3.3 Albumin/Globulin Ratio 1.1 TSH 3.30 Urine Color Yellow Urine Clarity Sl. Cloudy Urine pH 7.0 Ur Specific Amoret 1.010 Urine Protein Negative Urine Glucose (UA) Normal Urine Ketones Negative Urine Occult Blood 10 H Urine Nitrite Negative Urine Bilirubin Negative Urine Urobilinogen Normal Ur Leukocyte Esterase Negative Urine RBC 0 SEEN Urine WBC 0 SEEN Ur Squamous Epith Cells 0 SEEN Urine Bacteria 0 SEEN Urine Mucus 0 SEEN Radiography Chest X-Ray - ED: 1 View, Read by ED Physician and No Infiltrates Diagnostic Testing: Clinical Impression(s) from Imaging Studies Brain CT 06/26/22 18:59 IMPRESSION: No acute intracranial findings. Electronically Signed: Russel Severino MD at 19:50 EDT Reading Location ID and State: [facility] / [place] Tel , Service support , Chest X-Ray 06/26/22 19:20 IMPRESSION: No radiographic evidence of acute cardiopulmonary disease. Electronically Signed: Russel Severino MD at 19:52 EDT Reading Location ID and State: [address] [place] [address] Tel , Service support , Rhythm Strip Rhythm Strip: Sinus Rhythm Rate: 80 Ectopy: None EKG Initial EKG: Attestation: I personally reviewed and interpreted this EKG as follows: Interpretation: Sinus Rhythm and No Acute Injury Pattern Comments: leftward axis Prior EKG tracings: available for review Prior: Unchanged Discharge Plan Triage Chief Complaint: Syncope ED Provider: Ruperto Baker Dx/Rx/DC Orders Clinical Impression: Mild dehydration, Vasovagal syncope Instructions: ED Fainting, Vagal Reaction Prescriptions: No Action cyanocobalamin (vitamin B-12) 1,000 mcg capsule 1,000 mcg PO DAILY fluticasone propionate [Flonase Allergy Relief] 50 mcg/actuation spray,suspension 2 spray intranasal DAILY Rx Instructions: administer into each nostril glucosamine-chondroitin [Osteo Bi-Flex] 250-200 mg tablet 2 tab PO QPC multivitamin [Daily Multi-Vitamin] Tablet 1 tab PO DAILY simvastatin 20 MG tablet 20 mg PO QHS aspirin 81 MG tablet,chewable 81 mg PO DAILY@0800 oxybutynin chloride 10 mg tablet extended release 24hr 10 mg PO DAILY Label Comments: Take 1 tablet by mouth once daily. omeprazole 40 mg capsule,delayed release(DR/EC) 40 mg PO DAILY Label Comments: Take 1 capsule by mouth once daily. cholecalciferol (vitamin D3) 25 mcg (1,000 unit) Capsule 25 mcg PO DAILY capsaicin-methyl pablo-menthol Cream 1 applic TOPICAL TID PRN (Reason: ARTHRITIS) Colace 50 mg Capsule 50 mg PO BID nitroglycerin 400 mcg/spray spray,non-aerosol 0.4 mg translingual Q3-5M PRN (Reason: Cardiac/Chest Pain) Qty: 4.9 1RF Primary Care Provider: Eliza Zamora Referrals: Eliza Zamora MD [Primary Care Provider] - 1-2 Days if not improving Activity Restrictions/Additional Instructions: Encourage fluids Disposition Disposition: Home, Self Care What to do if you have Problems For any increased pain, shortness of breath, bleeding, nausea or vomiting, chestpain, or any unexpected problems, contact your Primary Care Provider. Call [facility] ([phone]) or report to the closest Emergency Room. Call 911 if necessary. 06/26/227 <Electronically signed by Ruperto Baker MD> Cosigner Signature (if applicable): CC: TRISTIN Aaron; Dr. Eliza Zamora MD ~ Signed [facility] Work Phone: [phone] 255-461603-06-2023 History of Present illness Narrative* Ambar Ladd APRN.RELIEF WORKER - 05/01/2022 1:06 PM EST SUBJECTIVE Inna [...] nitroglycerin (NITROLINGUAL) 400 mcg/spray spray Dissolve 1 [place] under the tongue every 5 minutes as [...] 05/19/2020 Overactive Bladder - 08/14/2018 Atherosclerosis of [place] 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) - 04/23/2015 Cardiomyopathy ([facility], [facility]) - 04/20/2014 Type 2 Diabetes Mellitus With Polyneuropathy ([facility], [facility]) - 02/20/2014 Comment: Hammertoes, bilateral. Nail dystrophy. Hyperlipidemia - 07/17/2005 Late [...] available. Ambar Ladd APRN-PRITESH documented in this encounterFostoria City Hospital02-06-2023 Miscellaneous Notes* Telephone Encounter - Diana Lynch RN - 04/03/2022 11:16 AM EST Sister Angie notified. Voices understanding. Diana Lynch RN * Telephone Encounter - Diana Lynch RN - 04/03/2022 11:16 AM EST Numbers are reviewed Will stop the coreg Cont monitoring BP daily camille * Telephone Encounter - Diana Lynch RN [...] Wheeler. Pt. taking 3.125mg Carvedilol BID. Diana Lynch, RN documented in this encounterFostoria City Hospital02-06-2023 History of Present illness Narrative* Ambar Ladd APRN.RELIEF WORKER - 04/03/2022 8:15 AM EST SUBJECTIVE Inna Ortiz is a 67 [...] nitroglycerin (NITROLINGUAL) 400 mcg/spray spray Dissolve 1 [place] under the tongue every 5 minutes as [...] in NaCl (PF) 0.9% 10 mL injection (DEFINM[facility] Health) INTRAVENOUS DIRECTED PRN ALLERGIES Allergen Reactions Macrobid [Nitrofura* Rash Cefdinir Rash ACTIVE PROBLEM LIST Weight Loss, Abnormal - 09/01/2021 Dysphagia - 09/01/2021 Urinary Incontinence - 05/30/2021 Gait Abnormality - 04/20/2021 Acid Indigestion - 05/19/2020 Overactive Bladder - 08/14/2018 Atherosclerosis of [place] 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) - 04/23/2015 Cardiomyopathy ([facility]ac, [facility]) - 04/20/2014 Type 2 Diabetes Mellitus With Polyneuropathy ([facility]) - 02/20/2014 Comment: Hammertoes, bilateral. Nail dystrophy. Hyperlipidemia - 07/17/2005 Late [...] check. Ambar Ladd APRN-PRITESH documented in this encounterFostoria City Hospital02-01-2023 [facility] Procedure noteWSelect [facility] [place]-01-2023 Procedure [facility]02-01-2023 Procedure [facility]01-31-2023 Miscellaneous Notes* Telephone Encounter - Diana Lynch RN - 03/28/2022 12:59 PM EST Sent. Diana Lynch RN * Telephone Encounter - Adry Ricci RN - 03/28/2022 11:15 AM EST Leti from Pre- Admission testing at [facility] calling and requesting last office visit notesbe faxed to [phone]. documented in this encounterFostoria City Hospital01-21-2023 Instructions* Patient Instructions* Eliza Zamora MD - 03/18/2022 11:26 AM EST Try finding nutrition supplement (Premier or other) that does not have artifical sugar (sucralose). Okay 30 grams protein. Okay to have more calories. documented in this encounterFostoria City Hospital01-21-2023 History of Present illness Narrative* Eliza Zamora MD - 03/18/2022 11:14 AM EST This note was created using Dragon Armyter. Subjective Inna Ortiz is a 67 year old male. Patient presents with: [facility] ER f/up 03/16 BP SUBJECTIVE: Inna Ortiz is a 67 year old year old gentleman here today for follow up appointment for reviewof medical conditions. Has been taking lower dose carvedilol. 3.1235 mg RX filled last night. Was in ER 03/16 when BP was dropping to 84/59. In ER was orthostatic with standing up and BP [id number] sitting to 96/74 standing--heart rate stayed 85 [...] nitroglycerin (NITROLINGUAL) 400 mcg/spray spray Dissolve 1 [place] under the tongue every 5 minutes as [...] the date of the service which included [id number] patient care, completing clinical documentation, obtaining and/or reviewing separately obtained history, performing a medically appropriate examination, counseling and educating the patient/family/caregiver, and ordering vaccine. Eliza Zamora MD documented in this encounterFostoria City Hospital01-20-2023 Miscellaneous Notes* Telephone Encounter - Tiffanie [...] office. Rx for Coreg was sent to [facility] LEAH Lal RN I recommend patient can reduce his Coreg to 3.125 mg BID. He should remain on same spironolactone dose of 12.5 mg daily. Please have patient continue to monitor BP and HR 2 x day for one week and call with updated BP log. Has follow up scheduled already with Dr. Wheeler in 1 month. Helena Hughes APRN.RELIEF WORKER * Telephone Encounter - Nataliia Varma Ma - 03/17/2022 8:33 AM EST Patients sister, Angie, called in to let office know that she is concerned about patients blood pressure. She took him to the ED yesterday to be checked because she felt his blood pressure was too low. Recent readings at home: 03/11 - 102/63 HR 69 03/12 - 88/54 HR 74 03/13 - 93/58 HR 67 03/14 - 101/57 HR 68 03/15 - 97/54 HR 67 03/16 - 84/59 HR 79 - went to ED 03/17 - 88/62 HR 76 Reports he is taking spironolactone 25 mg, 1/2 tablet once daily Carvedolol 12.5 mg, 1/2 tablet twice daily Orthostatic BP at ED is as follows, Lying - 120/75 Sitting - 120/71 Standing - 96/74 He has follow up in the office on 04/17/2022. Angie can be reached at [phone]. documented in this encounterFostoria City Hospital01-13-2023 History of Present illness Narrative* Huy Rodríguez PA-C - 03/10/2022 11:28 AM EST Images from the original note were not included. [facility] ESTABLISHED PATIENT CLINIC NOTE [...] cancer. After full review of records from [facility] there are errors in they diagnoses listed and suzy have been printed and given to his sister to be able to Have [facility] records adjust them they have him [...] 3 nitroglycerin (NITROLINGUAL) 400 mcg/spray spray^Dissolve 1 [place] under the tongue every 5 minutes as [...] Onset Coronary Artery Disease Father Heart Father [place] AT AGE 63 COPD Sister Asthma Sister [...] Friends and Family: Once a week Attends [employer] Services: Never Active Member of Clubs or Organizations: No Attends Club or Organization Meetings: Never Marital Status: Never REVIEW OF SYSTEMS: GENERAL: No fever, chills, weight loss, or fatigue. All other systems reviewed and are negative PHYSICAL EXAMINATION: Blood pressure 100/76, pulse 74, temperature 37.1 C (98.7 F), temperature source Temporal, resp. rate 14, height 175.3 cm (5' 9), weight 56.7 kg (125 lb), SpO2 94 [...] Clear PROCEDURES: PVR: 0 ml IMAGING: CT- [facility] showed enlarged prostate pushing into bladder, [...] reports printed for sister to go to [facility] medical records to correct errors found > 1 year Appt w/ CISCO Paniagua MT, PA-C for annual follow-up and refills. CISCO Goodman MT, PA-C * Kristen Ramirez LPN - [...] Plan: Appointment with Huy. documented in this encounterFostoria City Hospital01-12-2023 Miscellaneous Notes* Telephone Encounter - Eliza Zamora MD - 03/09/2022 2:23 PM EST See MyChart reply documented in this encounterFostoria City Hospital01-12-2023 Miscellaneous Notes* Telephone Encounter - Adry Patel RN - 03/09/2022 12:48 PM EST [facility] called in and reports they do not take Medicaid. She states she thinks [facility] would be their best bet. Called and Pts sister answered. She was put through to scheduling to set upUrology appointment. documented in this encounterFostoria City Hospital01-04-2023 Instructions* Patient Instructions* Eliza Zamora MD - 03/01/2022 11:49 AM EST Stop the metformin and take only if sugar is over 150. If sugars start going over 180 frequently, then might need to take metformin when eat more than 50 grams of carbs at a time. documented in this encounterFostoria City Hospital01-04-2023 History of Present illness Narrative* Eliza Zamora MD - 03/01/2022 11:41 AM EST Images from the original note were not included. This note was created using apprupt. Subjective Inna Ortiz is a 67 year [...] plans to do CT enterography as scheduled. 2 endoscopy (EGD and colonosopy). PAST MEDICAL HISTORY [...] nitroglycerin (NITROLINGUAL) 400 mcg/spray spray Dissolve 1 [place] under the tongue every 5 minutes as [...] Height as of 09/01/21: 174.6 cm (5' 8.75). Weight as of this encounter: 56 kg [...] indicated. Eliza Zamora MD documented in this encounterFostoria City Hospital12-29-2022 Miscellaneous Notes* Telephone Encounter - Eliza Zamora MD - 02/23/2022 5:49 PM EST Last 5 Encounter BP Readings: Date: BP: 01/28/2022 102/62 11/29/2021 98/64 10/17/2021 122/58 09/01/2021 110/64 06/07/2021 108/68 Noted BPs at home per rateGenius message. Range SBP 96 to 14, with most in 101 to 109 range. See [employer]ug[employer] reply documented in this encounterFostoria City Hospital12-19-2022 History of Present illness Narrative* Elvia Lal RN - 02/13/2022 12:22 PM EST 24 ga angio started to RAC. Good blood return. Flushed easily with NSS. Dressing applied. Definity (Lot # [id number] exp 08/26/2022 ) mixed per protocol. 1 cc administered throughout procedure. 9 cc discarded. Pt tolerated procedure well. No C/o's, Hep lock D/c'd and dressing applied. Patient discharged ambulatory with Fiber Locking Supervisor. Elvia Lal RN documented in this [facility]12-05-2022 Miscellaneous Notes* Telephone Encounter - Sofi Holden LPN - 01/30/2022 1:45 PM EST Attempted to reach Dr. Bey's office and message left. Referral order and records have been faxed with note asking office to call patient to scheduled consult. * Telephone Encounter - Ambar Ladd APRN.CNP - 01/30/2022 11:00 AM EST Can we [...] Please call and advise. documented in this [facility]10-24-2022 Miscellaneous Notes* Telephone Encounter - Kirstin Moffett RN - 12/19/2021 11:03 AM EDT Please advise if anything additional needs to be added. Thank you Kirstin Moffett RN documented in this [facility]10-04-2022 Instructions* Patient Instructions* Paulina West APRN.CNP - 11/29/2021 9:40 AM EDT Call your cnc mill programmer Dr. Duke about changing Metformin to a different medication documented in this [facility]10-04-2022 History of Present illness Narrative* Paulina West [...] or falling. Type 2 diabetes managed by cnc mill programmer Dr. Duke. Blood sugars are well controlled [...] nitroglycerin (NITROLINGUAL) 400 mcg/spray spray Dissolve 1 [place] under the tongue every 5 minutes as [...] Onset Coronary Artery Disease Father Heart Father [place] AT AGE 63 COPD Sister Asthma Sister [...] CBC Monitor BP at home and notify range conservationist if persists 3. Type 2 diabetes mellitus with polyneuropathy (HCC) - ICD9: 250.60, 357.2, ICD10: E11.42 Controlled. Sister would like to stop Metformin and try a different medication due to concerns for possible side effects/retirement issues - Continue current medications for now and discuss further with cnc mill programmer 4. Dysphagia, unspecified type - ICD9: 787.20, ICD10: R13.10 See #1 5. Primary hypertension - ICD9: 401.9, ICD10: I10 - good control Continue current medications per cardiology 6. Cardiomyopathy, unspecified type (HCC) - ICD9: 425.4, ICD10: I42.9 Stable 7. Encounter for immunization - ICD9: V03.89, ICD10: Z23 - INFLUENZA VACCINE QUADRIVALENT 6 MO - 64 YRS IM - Usentric COVID-19 BIVALENT BOOSTER VACCINE, AGE 12+ YR Prescription instructions reviewed with patient as applicable. Potential red flag symptoms discussed with the patient. Reviewed appropriate action plan to take if red flag symptoms occur. Patient agreeable to treatment plan. Paulina West APRN.CNP documented in this encounterFostoria City Hospital08-22-2022 History of Present illness Narrative* Dl Wheeler MD - 10/17/2021 4:21 PM EDT Images from the original note were not included. Dl Wheeler MD Interventional Cardiology [facility] [address], [place] [address] [phone] Chief Complaint Patient presents with: Follow Up [...] Onset Coronary Artery Disease Father Heart Father [place] AT AGE 63 COPD Sister Asthma Sister [...] nitroglycerin (NITROLINGUAL) 400 mcg/spray spray Dissolve 1 [place] under the tongue every 5 minutes as [...] to correct any errors. documented in this encounterFostoria City Hospital07-07-2022 History of Present illness Narrative* Nehemiah Thomas MD - 09/01/2021 10:57 AM EDT This note was created using Reachpod - [employer] Bilisimriter. Subjective Inna Ortiz is a 66 year [...] With Polyneuropathy (Hcc) Cardiomyopathy (Hcc) Atherosclerosis of [place] Coronary Artery of [place] Heart With Angina Pectoris (Hcc) Overactive Bladder [...] nitroglycerin (NITROLINGUAL) 400 mcg/spray spray Dissolve 1 [place] under the tongue every 5 minutes as [...] by mouth once daily. Hussein, Zingiber officinalis, (HUSSEIN EXTRACT) 250 mg cap Take 1 capsule by mouth twice daily. No current facility-administered medications for this visit. Objective BP 110/64 (BP Site: Left Arm, BP Position: Sitting, BP Cuff Size: Regular Adult) Pulse 80 Temp 37 C (98.6 F) (Temporal Artery) Resp 16 Ht 174.6 cm (5' 8.75) Wt 61.7 kg (136 lb) BMI 20.23kg/m [...] Recheck. Nehemiah Thomas MD documented in this encounterFostoria City Hospital07-05-2022 Miscellaneous Notes* Telephone Encounter - Himanshu Horan Ma - 08/30/2021 1:28 PM EDT Patient's sister notified, verbalized understanding. Himanshu Horan Ma * Telephone Encounter - Nehemiah Thomas MD - 08/30/2021 1:02 PM EDT No labs needed at this time. Recent lab from [facility] are on file. * Telephone Encounter - Heather Coleman LPN - 08/30/2021 9:41 AM EDT Angie/sister stopped into office, concerned about weight lose 22 lbs since 04/18/2021. Scheduled tosee Dr. Thomas, 09/01/2021, asking if he needs to have labs done prior to appt. Please notify family. Heather Coleman LPN documented in this encounterFostoria City Hospital06-15-2022 Miscellaneous Notes* Telephone Encounter - Kiley Salazar Pss - 08/10/2021 12:03 PM EDT Patient has [...] pharmacy. No need to notify patient. Kiley Salazar Pss documented in this encounterFostoria City Hospital06-08-2022 History of Present illness Narrative* Griselda [...] 07/04/21 to 08/03/2021 and treatment included:Therapeutic exercise, Self-skilled nursing management and Patient/Family/Caregiver Education. Goals for Episode of Care: created on 07/04/21 through 08/15/21 updated 08/03/21 Improve endurance to allow no dragging of feet per sister report partially achieved [place] in home exercise program./ achieved Patient will [...] up overhead assisted to improve upright standing [id number] 7: ambulation 20'x2 for upright posture 8: [...] up with arms Current Home Program: [facility] Therapeutic Exercise Treatment Minutes: 30 Total Treatment Time Minutes (timed/untimed): 30 Griselda Varela PT documented in this encounterFostoria City Hospital06-07-2022 Miscellaneous Notes* Telephone Encounter - Himanshu Horan Ma - 08/02/2021 8:53 AM EDT SALVADOR: 05/30/2021 Last refill: 05/02/2021 QTY: 90 Refills: 0 documented in this encounterFostoria City Hospital06-06-2022 Miscellaneous Notes* Telephone Encounter - Kristen [...] EDT ----- No infection in the urine CISCO Goodman, MTSUN documented in this encounterFostoria City Hospital06-06-2022 History of Present illness Narrative* Griselda Varela, PT - 08/01/2021 9:23 AM EDT Episode [...] up overhead assisted to improve upright standing [id number]: standing finger taps to pictures on [...] 30 Griselda Varela PT documented in this encounterFostoria City Hospital06-01-2022 History of Present illness Narrative* Griselda [...] 30 Griselda Varela PT documented in this encounterFostoria City Hospital05-25-2022 History of Present illness Narrative* Griselda [...] toward set goals. PLAN FOR NEXT VISIT: conitnue per POC SUBJECTIVE: Patient Reason for Visit: [...] 32 Griselda Varela PT documented in this encounterFostoria City Hospital05-23-2022 History of Present illness Narrative* Griselda [...] THERAPY PHYSICAL THERAPY TREATMENT NOTE ASSESSMENT: Inna Pedro Marygurjit tolerated the session with no issues. He [...] 35 Griselda Varela PT documented in this encounterFostoria City Hospital05-19-2022 History of Present illness Narrative* Griselda [...] No specific changes noted by her. Jasmyn still drags left leg at times. Pain: Pain [...] 35 Griselda Varela PT documented in this encounterFostoria City Hospital05-17-2022 History of Present illness Narrative* Griselda [...] 35 Griselda Varela PT documented in this encounterFostoria City Hospital05-09-2022 History of Present illness Narrative* Griselda [...] no dragging of feet per sister report [place] in home exercise program. Patient will increase flexibility of hip flexors , hamstrings by 5-10 degrees to improve ability tomaintain proper posture and improve mechanics. Increase ROM of hip extension for improved upright posture Patient Goals: Strengthen legs, get walking better Planned Interventions, Frequency, and Duration: Current Frequency: 2x/week Duration: 4 weeks Total Number of Visits Planned: 8 Planned Treatment Interventions: Therapeutic exercise ([id number]);Patient/Family/Caregiver Education;General Conditioning;Self-skilled nursing management ([id number]) PLAN FOR NEXT VISIT: Will work on [...] 3/5 R LE Strength: unable to determine [facility] MMT d/t no able to follow directions [...] visual and tactile cuing. Education to sister/ tool and die supervisor Angie Home Exercise Program Assigned: 1: lying supine legs out straight 1-2 times per day 2: pt up and walking regularly throughout the day 3: sit to stand as tolerated Billing * Evaluation High Complexity: 1 Unit Therapeutic Exercise Treatment Minutes: 30 Total Treatment Time Minutes (timed/untimed): 45 Griselda Varela PT documented in this encounterFostoria City Hospital04-23-2022 Miscellaneous Notes* Telephone Encounter - Lilli Gramajo RN - 06/18/2021 8:15 AM EDT Patient has been identified by name and date of : Yes Patient's sister phones for refill(s): Pending Prescriptions Disp Refills NITROGLYCERIN 400 MCG/SPRAY TRANSLINGUAL Sig: Dissolve 1 [place] under the tongue every 5 minutes as needed. CARA: No Date of last office visit with pcp: 05/30/21 Date of last office visit in primary care: Last 2 Encounter Wt Readings: Date: Wt: 06/07/2021 65.8 kg (145 lb) 05/30/2021 66.2 kg (146 lb) Previous labs/tests for medication: Not applicable Please advise. Thank you. Lilli Gramajo RN documented in this encounterFostoria City Hospital04-18-2022 Miscellaneous Notes* Telephone Encounter - Kassy [...] ENDOCRINOLOGY Nehemiah Thomas MD documented in this encounterFostoria City Hospital04-12-2022 History of Present illness Narrative* Huy Rodríguez PA-C - 06/07/2021 10:18 AM EDT Images from the original note were not included. [facility] [place] PATIENT INFO: Inna Ortiz 66 year old [facility]# [id number] PCP: Nehemiah Thomas MD CHIEF COMPLAINT: UTI [...] nitroglycerin (NITROLINGUAL) 400 mcg/spray spray Dissolve 1 [place] under the tongue every 5 minutes as [...] resp. rate 16, height 180.3 cm (5' 11), weight 65.8 kg (145 lb), SpO2 100 [...] level check 06/13/21 Diabetes - Glycosuria CISCO Goodman, MT, SUN * Kristen Ramirez LPN - 06/07/2021 10:06 AM EDT CC Post Void Residual HPI: Inna Ortiz is a 66 year old male. The patient is here now for an appointment with CISCO Goodman, MT, PA-COV. Procedure: Explained procedure to patient and verbalizes understanding. Performed a PVR. Patient urinated and instructed to empty bladder as much as possible just prior to having PVR done using bladder ultrasound scanner. Results of scan: 0 mL The patient tolerated the procedure well. Plan: Appointment with Huy. documented in this encounterFostoria City Hospital04-04-2022 History of Present illness Narrative* Nehemiah Thomas MD - 05/30/2021 2:02 PM EDT This note was created using Reachpod - Inovaktif Bilisimriter. Subjective Inna Ortiz is a 66 year [...] With Polyneuropathy (Hcc) Cardiomyopathy (Hcc) Atherosclerosis of [place] Coronary Artery of [place] Heart With Angina Pectoris (Hcc) Overactive Bladder [...] nitroglycerin (NITROLINGUAL) 400 mcg/spray spray Dissolve 1 [place] under the tongue every 5 minutes as [...] CBC Nehemiah Thomas MD documented in this encounterFostoria City Hospital03-30-2022 Miscellaneous Notes* Telephone Encounter - Sasha Saravia RN - 05/25/2021 11:55 AM EDT Elvia with [facility] calls to check on status of request for nurse visit to review medications. Notified Elvia that order was approved on 05/17/2021 and message was left on secure line. Elvia verbalizes understanding. Sasha Saravia RN documented in this encounterFostoria City Hospital02-24-2022 Miscellaneous Notes* Telephone Encounter - Heather Coleman LPN - 04/21/2021 11:41 AM EST PSS please call to schedule. Heather Coleman LPN * Telephone Encounter - Nehemiah Thomas MD - 04/20/2021 10:34 PM EST ASSESSMENT/PLAN: 1. Gait abnormality - ICD9: 781.2, ICD10: R26.9 - CONSULT TO ORTHOPAEDICS Nehemiah Thomas MD documented in this encounterFostoria City Hospital10-04-2021 History of Present illness Narrative* Elva Pedroza, RT(R) - 11/29/2020 5:30 PM EDT Radiology Service Progress Note PATIENT NAME: Inna Ortiz DATE OF SERVICE: November 29, 2020 TIME: 5:43 PM PATIENT IDENTITY VERIFICATION COMPLETED USING TWO (2) IDENTIFIERS: Name and Date of confirmedby patient verbally. FALL SCREENING: Has the patient had 2 falls in the last year or 1 fall with injury or currently using an Ambulatory Assistive Device (Walker, Cane, Wheelchair, Crutches, etc.)? No PATIENT GENDER DATA: Male PATIENT RELEVANT IMPLANT DATA REVIEWED: Yes RADIOLOGY DEPARTMENT: General X-ray: Exam(s) Completed: Lower Extremity X- Ray(s): Knee, AP / Lat / Tunne / Merchant Bilateral and Wt. Bearing PERIPHERAL IV DATA: Not applicable SIGNED BY: RT Kourtney(R) November 29, 2020 5:43 PM documented in this encounterFostoria City Hospital07-02-2020 History of Past illness Narrative* Problem Noted Date Resolved Date Occult GI bleeding 08/28/2019 05/19/2020 Left inguinal hernia 05/16/2016 10/31/2016 Hypokalemia 06/30/2009 04/21/2014 Family history of diabetes mellitus 10/11/2004 04/12/2018 Obesity, unspecified 10/10/2004 10/31/2016 Other abnormal blood chemistry 10/10/2004 0 04/21/2014 Other convulsions 10/10/2004 04/21/2014 documented as of this encounter (statuses as of 05/25/2021) [facility] of Past illness Narrative* Problem Noted Date Resolved Date Occult GI bleeding 08/28/2019 05/19/2020 Left inguinal hernia 05/16/2016 10/31/2016 Hypokalemia 06/30/2009 04/21/2014 Family history of diabetes mellitus 10/11/2004 04/12/2018 Obesity, unspecified 10/10/2004 10/31/2016 Other abnormal blood chemistry 10/10/2004 0 04/21/2014 Other convulsions 10/10/2004 04/21/2014 documented as of this encounter (statuses as of 05/30/2021) [facility] of Past illness Narrative* Problem Noted Date Resolved Date Occult GI bleeding 08/28/2019 05/19/2020 Left inguinal hernia 05/16/2016 10/31/2016 Hypokalemia 06/30/2009 04/21/2014 Family history of diabetes mellitus 10/11/2004 04/12/2018 Obesity, unspecified 10/10/2004 10/31/2016 Other abnormal blood chemistry 10/10/2004 0 04/21/2014 Other convulsions 10/10/2004 04/21/2014 documented as of this encounter (statuses as of 06/07/2021) [facility] of Past illness Narrative* Problem Noted Date Resolved Date Occult GI bleeding 08/28/2019 05/19/2020 Left inguinal hernia 05/16/2016 10/31/2016 Hypokalemia 06/30/2009 04/21/2014 Family history of diabetes mellitus 10/11/2004 04/12/2018 Obesity, unspecified 10/10/2004 10/31/2016 Other abnormal blood chemistry 10/10/2004 0 04/21/2014 Other convulsions 10/10/2004 04/21/2014 documented as of this encounter (statuses as of 06/07/2021) [facility] of [facility] illness Narrative* Problem Noted Date Resolved Date Occult GI bleeding 08/28/2019 05/19/2020 Left inguinal hernia 05/16/2016 10/31/2016 Hypokalemia 06/30/2009 04/21/2014 Family history of diabetes mellitus 10/11/2004 04/12/2018 Obesity, unspecified 10/10/2004 10/31/2016 Other abnormal blood chemistry 10/10/2004 0 04/21/2014 Other convulsions 10/10/2004 04/21/2014 documented as of this encounter (statuses as of 06/08/2021) [facility] of [facility] illness Narrative* Problem Noted Date Resolved Date Occult GI bleeding 08/28/2019 05/19/2020 Left inguinal hernia 05/16/2016 10/31/2016 Hypokalemia 06/30/2009 04/21/2014 Family history of diabetes mellitus 10/11/2004 04/12/2018 Obesity, unspecified 10/10/2004 10/31/2016 Other abnormal blood chemistry 10/10/2004 0 04/21/2014 Other convulsions 10/10/2004 04/21/2014 documented as of this encounter (statuses as of 06/08/2021) [facility] of [facility] illness Narrative* Problem Noted Date Resolved Date Occult GI bleeding 08/28/2019 05/19/2020 Left inguinal hernia 05/16/2016 10/31/2016 Hypokalemia 06/30/2009 04/21/2014 Family history of diabetes mellitus 10/11/2004 04/12/2018 Obesity, unspecified 10/10/2004 10/31/2016 Other abnormal blood chemistry 10/10/2004 0 04/21/2014 Other convulsions 10/10/2004 04/21/2014 documented as of this encounter (statuses as of 06/13/2021) [facility] Narrative* Problem Noted Date Resolved Date Occult GI bleeding 08/28/2019 05/19/2020 Left inguinal hernia 05/16/2016 10/31/2016 Hypokalemia 06/30/2009 04/21/2014 Family history of diabetes mellitus 10/11/2004 04/12/2018 Obesity, unspecified 10/10/2004 10/31/2016 Other abnormal blood chemistry 10/10/2004 0 04/21/2014 Other convulsions 10/10/2004 04/21/2014 documented as of this encounter (statuses as of 06/14/2021) [facility] illness Narrative* Problem Noted Date Resolved Date Occult GI bleeding 08/28/2019 05/19/2020 Left inguinal hernia 05/16/2016 10/31/2016 Hypokalemia 06/30/2009 04/21/2014 Family history of diabetes mellitus 10/11/2004 04/12/2018 Obesity, unspecified 10/10/2004 10/31/2016 Other abnormal blood chemistry 10/10/2004 0 04/21/2014 Other convulsions 10/10/2004 04/21/2014 documented as of this encounter (statuses as of 06/14/2021) [facility] Narrative* Problem Noted Date Resolved Date Occult GI bleeding 08/28/2019 05/19/2020 Left inguinal hernia 05/16/2016 10/31/2016 Hypokalemia 06/30/2009 04/21/2014 Family history of diabetes mellitus 10/11/2004 04/12/2018 Obesity, unspecified 10/10/2004 10/31/2016 Other abnormal blood chemistry 10/10/2004 0 04/21/2014 Other convulsions 10/10/2004 04/21/2014 documented as of this encounter (statuses as of 06/14/2021) [facility] Narrative* Problem Noted Date Resolved Date Occult GI bleeding 08/28/2019 05/19/2020 Left inguinal hernia 05/16/2016 10/31/2016 Hypokalemia 06/30/2009 04/21/2014 Family history of diabetes mellitus 10/11/2004 04/12/2018 Obesity, unspecified 10/10/2004 10/31/2016 Other abnormal blood chemistry 10/10/2004 0 04/21/2014 Other convulsions 10/10/2004 04/21/2014 documented as of this encounter (statuses as of 06/20/2021) [facility] Narrative* Problem Noted Date Resolved Date Occult GI bleeding 08/28/2019 05/19/2020 Left inguinal hernia 05/16/2016 10/31/2016 Hypokalemia 06/30/2009 04/21/2014 Family history of diabetes mellitus 10/11/2004 04/12/2018 Obesity, unspecified 10/10/2004 10/31/2016 Other abnormal blood chemistry 10/10/2004 0 04/21/2014 Other convulsions 10/10/2004 04/21/2014 documented as of this encounter (statuses as of 07/04/2021) [facility] Narrative* Problem Noted Date Resolved Date Occult GI bleeding 08/28/2019 05/19/2020 Left inguinal hernia 05/16/2016 10/31/2016 Hypokalemia 06/30/2009 04/21/2014 Family history of diabetes mellitus 10/11/2004 04/12/2018 Obesity, unspecified 10/10/2004 10/31/2016 Other abnormal blood chemistry 10/10/2004 0 04/21/2014 Other convulsions 10/10/2004 04/21/2014 documented as of this encounter (statuses as of 07/12/2021) [facility] Narrative* Problem Noted Date Resolved Date Occult GI bleeding 08/28/2019 05/19/2020 Left inguinal hernia 05/16/2016 10/31/2016 Hypokalemia 06/30/2009 04/21/2014 Family history of diabetes mellitus 10/11/2004 04/12/2018 Obesity, unspecified 10/10/2004 10/31/2016 Other abnormal blood chemistry 10/10/2004 0 04/21/2014 Other convulsions 10/10/2004 04/21/2014 documented as of this encounter (statuses as of 07/14/2021) [facility] Narrative* Problem Noted Date Resolved Date Occult GI bleeding 08/28/2019 05/19/2020 Left inguinal hernia 05/16/2016 10/31/2016 Hypokalemia 06/30/2009 04/21/2014 Family history of diabetes mellitus 10/11/2004 04/12/2018 Obesity, unspecified 10/10/2004 10/31/2016 Other abnormal blood chemistry 10/10/2004 0 04/21/2014 Other convulsions 10/10/2004 04/21/2014 documented as of this encounter (statuses as of 07/18/2021) [facility] Narrative* Problem Noted Date Resolved Date Occult GI bleeding 08/28/2019 05/19/2020 Left inguinal hernia 05/16/2016 10/31/2016 Hypokalemia 06/30/2009 04/21/2014 Family history of diabetes mellitus 10/11/2004 04/12/2018 Obesity, unspecified 10/10/2004 10/31/2016 Other abnormal blood chemistry 10/10/2004 0 04/21/2014 Other convulsions 10/10/2004 04/21/2014 documented as of this encounter (statuses as of 07/20/2021) [facility] Narrative* Problem Noted Date Resolved Date Occult GI bleeding 08/28/2019 05/19/2020 Left inguinal hernia 05/16/2016 10/31/2016 Hypokalemia 06/30/2009 04/21/2014 Family history of diabetes mellitus 10/11/2004 04/12/2018 Obesity, unspecified 10/10/2004 10/31/2016 Other abnormal blood chemistry 10/10/2004 0 04/21/2014 Other convulsions 10/10/2004 04/21/2014 documented as of this encounter (statuses as of 07/26/2021) [facility] Narrative* Problem Noted Date Resolved Date Occult GI bleeding 08/28/2019 05/19/2020 Left inguinal hernia 05/16/2016 10/31/2016 Hypokalemia 06/30/2009 04/21/2014 Family history of diabetes mellitus 10/11/2004 04/12/2018 Obesity, unspecified 10/10/2004 10/31/2016 Other abnormal blood chemistry 10/10/2004 0 04/21/2014 Other convulsions 10/10/2004 04/21/2014 documented as of this encounter (statuses as of 07/27/2021) [facility] History of Past illness Narrative* Problem Noted Date Resolved Date Occult GI bleeding 08/28/2019 05/19/2020 Left inguinal hernia 05/16/2016 10/31/2016 Hypokalemia 06/30/2009 04/21/2014 Family history of diabetes mellitus 10/11/2004 04/12/2018 Obesity, unspecified 10/10/2004 10/31/2016 Other abnormal blood chemistry 10/10/2004 0 04/21/2014 Other convulsions 10/10/2004 04/21/2014 documented as of this encounter (statuses as of 08/01/2021) [facility] History of Past illness Narrative* Problem Noted Date Resolved Date Occult GI bleeding 08/28/2019 05/19/2020 Left inguinal hernia 05/16/2016 10/31/2016 Hypokalemia 06/30/2009 04/21/2014 Family history of diabetes mellitus 10/11/2004 04/12/2018 Obesity, unspecified 10/10/2004 10/31/2016 Other abnormal blood chemistry 10/10/2004 0 04/21/2014 Other convulsions 10/10/2004 04/21/2014 documented as of this encounter (statuses as of 08/01/2021) [facility] History of Past illness Narrative* Problem Noted Date Resolved Date Occult GI bleeding 08/28/2019 05/19/2020 Left inguinal hernia 05/16/2016 10/31/2016 Hypokalemia 06/30/2009 04/21/2014 Family history of diabetes mellitus 10/11/2004 04/12/2018 Obesity, unspecified 10/10/2004 10/31/2016 Other abnormal blood chemistry 10/10/2004 0 04/21/2014 Other convulsions 10/10/2004 04/21/2014 documented as of this encounter (statuses as of 08/03/2021) [facility] History of Past illness Narrative* Problem Noted Date Resolved Date Occult GI bleeding 08/28/2019 05/19/2020 Left inguinal hernia 05/16/2016 10/31/2016 Hypokalemia 06/30/2009 04/21/2014 Family history of diabetes mellitus 10/11/2004 04/12/2018 Obesity, unspecified 10/10/2004 10/31/2016 Other abnormal blood chemistry 10/10/2004 0 04/21/2014 Other convulsions 10/10/2004 04/21/2014 documented as of this encounter (statuses as of 08/03/2021) [facility] History of Past illness Narrative* Problem Noted Date Resolved Date Occult GI bleeding 08/28/2019 05/19/2020 Left inguinal hernia 05/16/2016 10/31/2016 Hypokalemia 06/30/2009 04/21/2014 Family history of diabetes mellitus 10/11/2004 04/12/2018 Obesity, unspecified 10/10/2004 10/31/2016 Other abnormal blood chemistry 10/10/2004 0 04/21/2014 Other convulsions 10/10/2004 04/21/2014 documented as of this encounter (statuses as of 08/10/2021) [facility] History of Past illness Narrative* Problem Noted Date Resolved Date Occult GI bleeding 08/28/2019 05/19/2020 Left inguinal hernia 05/16/2016 10/31/2016 Hypokalemia 06/30/2009 04/21/2014 Family history of diabetes mellitus 10/11/2004 04/12/2018 Obesity, unspecified 10/10/2004 10/31/2016 Other abnormal blood chemistry 10/10/2004 0 04/21/2014 Other convulsions 10/10/2004 04/21/2014 documented as of this encounter (statuses as of 08/30/2021) [facility] History of Past illness Narrative* Problem Noted Date Resolved Date Occult GI bleeding 08/28/2019 05/19/2020 Left inguinal hernia 05/16/2016 10/31/2016 Hypokalemia 06/30/2009 04/21/2014 Family history of diabetes mellitus 10/11/2004 04/12/2018 Obesity, unspecified 10/10/2004 10/31/2016 Other abnormal blood chemistry 10/10/2004 0 04/21/2014 Other convulsions 10/10/2004 04/21/2014 documented as of this encounter (statuses as of 09/01/2021) [facility] History of Past illness Narrative* Problem Noted Date Resolved Date Occult GI bleeding 08/28/2019 05/19/2020 Left inguinal hernia 05/16/2016 10/31/2016 Hypokalemia 06/30/2009 04/21/2014 Family history of diabetes mellitus 10/11/2004 04/12/2018 Obesity, unspecified 10/10/2004 10/31/2016 Other abnormal blood chemistry 10/10/2004 0 04/21/2014 Other convulsions 10/10/2004 04/21/2014 documented as of this encounter (statuses as of 09/22/2021) [facility] History of Past illness Narrative* Problem Noted Date Resolved Date Occult GI bleeding 08/28/2019 05/19/2020 Left inguinal hernia 05/16/2016 10/31/2016 Hypokalemia 06/30/2009 04/21/2014 Family history of diabetes mellitus 10/11/2004 04/12/2018 Obesity, unspecified 10/10/2004 10/31/2016 Other abnormal blood chemistry 10/10/2004 0 04/21/2014 Other convulsions 10/10/2004 04/21/2014 documented as of this encounter (statuses as of 10/17/2021) [facility] History of Past illness Narrative* Problem Noted Date Resolved Date Occult GI bleeding 08/28/2019 05/19/2020 Left inguinal hernia 05/16/2016 10/31/2016 Hypokalemia 06/30/2009 04/21/2014 Family history of diabetes mellitus 10/11/2004 04/12/2018 Obesity, unspecified 10/10/2004 10/31/2016 Other abnormal blood chemistry 10/10/2004 0 04/21/2014 Other convulsions 10/10/2004 04/21/2014 documented as of this encounter (statuses as of 11/29/2021) [facility] History of Past illness Narrative* Problem Noted Date Resolved Date Occult GI bleeding 08/28/2019 05/19/2020 Left inguinal hernia 05/16/2016 10/31/2016 Hypokalemia 06/30/2009 04/21/2014 Family history of diabetes mellitus 10/11/2004 04/12/2018 Obesity, unspecified 10/10/2004 10/31/2016 Other abnormal blood chemistry 10/10/2004 0 04/21/2014 Other convulsions 10/10/2004 04/21/2014 documented as of this encounter (statuses as of 12/19/2021) [facility] History of Past illness Narrative* Problem Noted Date Resolved Date Occult GI bleeding 08/28/2019 05/19/2020 Left inguinal hernia 05/16/2016 10/31/2016 Hypokalemia 06/30/2009 04/21/2014 Family history of diabetes mellitus 10/11/2004 04/12/2018 Obesity, unspecified 10/10/2004 10/31/2016 Other abnormal blood chemistry 10/10/2004 0 04/21/2014 Other convulsions 10/10/2004 04/21/2014 documented as of this encounter (statuses as of 01/31/2022) [facility] History of Past illness Narrative* Problem Noted Date Resolved Date Occult GI bleeding 08/28/2019 05/19/2020 Left inguinal hernia 05/16/2016 10/31/2016 Hypokalemia 06/30/2009 04/21/2014 Family history of diabetes mellitus 10/11/2004 04/12/2018 Obesity, unspecified 10/10/2004 10/31/2016 Other abnormal blood chemistry 10/10/2004 0 04/21/2014 Other convulsions 10/10/2004 04/21/2014 documented as of this encounter (statuses as of 02/13/2022) [facility] History of Past illness Narrative* Problem Noted Date Resolved Date Occult GI bleeding 08/28/2019 05/19/2020 Left inguinal hernia 05/16/2016 10/31/2016 Hypokalemia 06/30/2009 04/21/2014 Family history of diabetes mellitus 10/11/2004 04/12/2018 Obesity, unspecified 10/10/2004 10/31/2016 Other abnormal blood chemistry 10/10/2004 0 04/21/2014 Other convulsions 10/10/2004 04/21/2014 documented as of this encounter (statuses as of 02/26/2022) [facility] History of Past illness Narrative* Problem Noted Date Resolved Date Occult GI bleeding 08/28/2019 05/19/2020 Left inguinal hernia 05/16/2016 10/31/2016 Hypokalemia 06/30/2009 04/21/2014 Family history of diabetes mellitus 10/11/2004 04/12/2018 Obesity, unspecified 10/10/2004 10/31/2016 Other abnormal blood chemistry 10/10/2004 0 04/21/2014 Other convulsions 10/10/2004 04/21/2014 documented as of this encounter (statuses as of 03/01/2022) [facility] History of Past illness Narrative* Problem Noted Date Resolved Date Occult GI bleeding 08/28/2019 05/19/2020 Left inguinal hernia 05/16/2016 10/31/2016 Hypokalemia 06/30/2009 04/21/2014 Family history of diabetes mellitus 10/11/2004 04/12/2018 Obesity, unspecified 10/10/2004 10/31/2016 Other abnormal blood chemistry 10/10/2004 0 04/21/2014 Other convulsions 10/10/2004 04/21/2014 documented as of this encounter (statuses as of 03/03/2022) [facility] History of Past illness Narrative* Problem Noted Date Resolved Date Occult GI bleeding 08/28/2019 05/19/2020 Left inguinal hernia 05/16/2016 10/31/2016 Hypokalemia 06/30/2009 04/21/2014 Family history of diabetes mellitus 10/11/2004 04/12/2018 Obesity, unspecified 10/10/2004 10/31/2016 Other abnormal blood chemistry 10/10/2004 0 04/21/2014 Other convulsions 10/10/2004 04/21/2014 documented as of this encounter (statuses as of 03/09/2022) [facility] History of Past illness Narrative* Problem Noted Date Resolved Date Occult GI bleeding 08/28/2019 05/19/2020 Left inguinal hernia 05/16/2016 10/31/2016 Hypokalemia 06/30/2009 04/21/2014 Family history of diabetes mellitus 10/11/2004 04/12/2018 Obesity, unspecified 10/10/2004 10/31/2016 Other abnormal blood chemistry 10/10/2004 0 04/21/2014 Other convulsions 10/10/2004 04/21/2014 documented as of this encounter (statuses as of 03/10/2022) [facility] History of Past illness Narrative* Problem Noted Date Resolved Date Occult GI bleeding 08/28/2019 05/19/2020 Left inguinal hernia 05/16/2016 10/31/2016 Hypokalemia 06/30/2009 04/21/2014 Family history of diabetes mellitus 10/11/2004 04/12/2018 Obesity, unspecified 10/10/2004 10/31/2016 Other abnormal blood chemistry 10/10/2004 0 04/21/2014 Other convulsions 10/10/2004 04/21/2014 documented as of this encounter (statuses as of 03/17/2022) [facility] History of Past illness Narrative* Problem Noted Date Resolved Date Occult GI bleeding 08/28/2019 05/19/2020 Left inguinal hernia 05/16/2016 10/31/2016 Hypokalemia 06/30/2009 04/21/2014 Family history of diabetes mellitus 10/11/2004 04/12/2018 Obesity, unspecified 10/10/2004 10/31/2016 Other abnormal blood chemistry 10/10/2004 0 04/21/2014 Other convulsions 10/10/2004 04/21/2014 documented as of this encounter (statuses as of 03/21/2022) [facility] History of Past illness Narrative* Problem Noted Date Resolved Date Occult GI bleeding 08/28/2019 05/19/2020 Left inguinal hernia 05/16/2016 10/31/2016 Hypokalemia 06/30/2009 04/21/2014 Family history of diabetes mellitus 10/11/2004 04/12/2018 Obesity, unspecified 10/10/2004 10/31/2016 Other abnormal blood chemistry 10/10/2004 0 04/21/2014 Other convulsions 10/10/2004 04/21/2014 documented as of this encounter (statuses as of 03/21/2022) [facility] History of Past illness Narrative* Problem Noted Date Resolved Date Occult GI bleeding 08/28/2019 05/19/2020 Left inguinal hernia 05/16/2016 10/31/2016 Hypokalemia 06/30/2009 04/21/2014 Family history of diabetes mellitus 10/11/2004 04/12/2018 Obesity, unspecified 10/10/2004 10/31/2016 Other abnormal blood chemistry 10/10/2004 0 04/21/2014 Other convulsions 10/10/2004 04/21/2014 documented as of this encounter (statuses as of 03/27/2022) [facility] History of Past illness Narrative* Problem Noted Date Resolved Date Occult GI bleeding 08/28/2019 05/19/2020 Left inguinal hernia 05/16/2016 10/31/2016 Hypokalemia 06/30/2009 04/21/2014 Family history of diabetes mellitus 10/11/2004 04/12/2018 Obesity, unspecified 10/10/2004 10/31/2016 Other abnormal blood chemistry 10/10/2004 0 04/21/2014 Other convulsions 10/10/2004 04/21/2014 documented as of this encounter (statuses as of 03/28/2022) [facility] History of Past illness Narrative* Problem Noted Date Resolved Date Occult GI bleeding 08/28/2019 05/19/2020 Left inguinal hernia 05/16/2016 10/31/2016 Hypokalemia 06/30/2009 04/21/2014 Family history of diabetes mellitus 10/11/2004 04/12/2018 Obesity, unspecified 10/10/2004 10/31/2016 Other abnormal blood chemistry 10/10/2004 0 04/21/2014 Other convulsions 10/10/2004 04/21/2014 documented as of this encounter (statuses as of 04/03/2022) [facility] History of Past illness Narrative* Problem Noted Date Resolved Date Occult GI bleeding 08/28/2019 05/19/2020 Left inguinal hernia 05/16/2016 10/31/2016 Hypokalemia 06/30/2009 04/21/2014 Family history of diabetes mellitus 10/11/2004 04/12/2018 Obesity, unspecified 10/10/2004 10/31/2016 Other abnormal blood chemistry 10/10/2004 0 04/21/2014 Other convulsions 10/10/2004 04/21/2014 documented as of this encounter (statuses as of 04/04/2022) [facility] History of Past illness Narrative* Problem Noted Date Resolved Date Occult GI bleeding 08/28/2019 05/19/2020 Left inguinal hernia 05/16/2016 10/31/2016 Hypokalemia 06/30/2009 04/21/2014 Family history of diabetes mellitus 10/11/2004 04/12/2018 Obesity, unspecified 10/10/2004 10/31/2016 Other abnormal blood chemistry 10/10/2004 0 04/21/2014 Other convulsions 10/10/2004 04/21/2014 documented as of this encounter (statuses as of 04/16/2022) [facility] History of Past illness Narrative* Problem Noted Date Resolved Date Occult GI bleeding 08/28/2019 05/19/2020 Left inguinal hernia 05/16/2016 10/31/2016 Hypokalemia 06/30/2009 04/21/2014 Family history of diabetes mellitus 10/11/2004 04/12/2018 Obesity, unspecified 10/10/2004 10/31/2016 Other abnormal blood chemistry 10/10/2004 0 04/21/2014 Other convulsions 10/10/2004 04/21/2014 documented as of this encounter (statuses as of 05/01/2022) [facility] History of Past illness Narrative* Problem Noted Date Resolved Date Occult GI bleeding 08/28/2019 05/19/2020 Left inguinal hernia 05/16/2016 10/31/2016 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 04/23/2015 07/19/2022 Hypokalemia 06/30/2009 04/21/2014 Family history of diabetes mellitus 10/11/2004 04/12/2018 Obesity, unspecified 10/10/2004 10/31/2016 Other abnormal blood chemistry 10/10/2004 0 04/21/2014 Other convulsions 10/10/2004 04/21/2014 documented as of this encounter (statuses as of 08/02/2022) [facility] History of Past illness Narrative* Problem Noted Date Resolved Date Occult GI bleeding 08/28/2019 05/19/2020 Left inguinal hernia 05/16/2016 10/31/2016 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 04/23/2015 07/19/2022 Hypokalemia 06/30/2009 04/21/2014 Family history of diabetes mellitus 10/11/2004 04/12/2018 Obesity, unspecified 10/10/2004 10/31/2016 Other abnormal blood chemistry 10/10/2004 0 04/21/2014 Other convulsions 10/10/2004 04/21/2014 documented as of this encounter (statuses as of 08/31/2022) [facility] History of Past illness Narrative* Problem Noted Date Diagnosed Date Resolved Date Occult GI bleeding 08/28/2019 03/24/202 1 Left inguinal hernia 05/16/2016 017 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 04/23/20152022 Hypokalemia 06/30/2009 04/21/2014 Family history of diabetes mellitus 10/11/2004 04/12/2018 Obesity, unspecified 10/10/2004 017 Other abnormal blood chemistry 10/10/2004 04/21/2014 Other convulsions 10/10/2004 04/21/2014 documented as of this encounter (statuses as of 09/04/2022) [facility] History of Past illness Narrative* Problem Noted Date Diagnosed Date Resolved Date Occult GI bleeding 08/28/2019 1 Left inguinal hernia 05/16/2016 017 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 04/23/20152022 Hypokalemia 06/30/2009 04/21/2014 Family history of diabetes mellitus 10/11/2004 04/12/2018 Obesity, unspecified 10/10/2004 017 Other abnormal blood chemistry 10/10/2004 04/21/2014 Other convulsions 10/10/2004 04/21/2014 documented as of this encounter (statuses as of 09/07/2022) [facility] of Past illness Narrative* Problem Noted Date Diagnosed Date Resolved Date Occult GI bleeding 08/28/2019 1 Left inguinal hernia 05/16/2016 017 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 04/23/20152022 Hypokalemia 06/30/2009 04/21/2014 Family history of diabetes mellitus 10/11/2004 04/12/2018 Obesity, unspecified 10/10/2004 017 Other abnormal blood chemistry 10/10/2004 04/21/2014 Other convulsions 10/10/2004 04/21/2014 documented as of this encounter (statuses as of 09/11/2022) [facility] of Past illness Narrative* Problem Noted Date Diagnosed Date Resolved Date Occult GI bleeding 08/28/2019 1 Left inguinal hernia 05/16/2016 017 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 04/23/20152022 Hypokalemia 06/30/2009 04/21/2014 Family history of diabetes mellitus 10/11/2004 04/12/2018 Obesity, unspecified 10/10/2004 017 Other abnormal blood chemistry 10/10/2004 04/21/2014 Other convulsions 10/10/2004 04/21/2014 documented as of this encounter (statuses as of 09/11/2022) [facility] of Past illness Narrative* Problem Noted Date Diagnosed Date Resolved Date Occult GI bleeding 08/28/2019 1 Left inguinal hernia 05/16/2016 017 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 04/23/20152022 Hypokalemia 06/30/2009 04/21/2014 Family history of diabetes mellitus 10/11/2004 04/12/2018 Obesity, unspecified 10/10/2004 017 Other abnormal blood chemistry 10/10/2004 04/21/2014 Other convulsions 10/10/2004 04/21/2014 documented as of this encounter (statuses as of 09/14/2022) [facility] Past illness Narrative* Problem Noted Date Diagnosed Date Resolved Date Occult GI bleeding 08/28/2019 1 Left inguinal hernia 05/16/2016 017 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 04/23/20152022 Hypokalemia 06/30/2009 04/21/2014 Family history of diabetes mellitus 10/11/2004 04/12/2018 Obesity, unspecified 10/10/2004 017 Other abnormal blood chemistry 10/10/2004 04/21/2014 Other convulsions 10/10/2004 04/21/2014 documented as of this encounter (statuses as of 10/10/2022) [facility] of Past illness Narrative* Problem Noted Date Diagnosed Date Resolved Date Occult GI bleeding 08/28/2019 1 Left inguinal hernia 05/16/2016 017 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 04/23/20152022 Hypokalemia 06/30/2009 04/21/2014 Family history of diabetes mellitus 10/11/2004 04/12/2018 Obesity, unspecified 10/10/2004 017 Other abnormal blood chemistry 10/10/2004 04/21/2014 Other convulsions 10/10/2004 04/21/2014 documented as of this encounter (statuses as of 10/27/2022) [facility] of Past illness Narrative* Problem Noted Date Diagnosed Date Resolved Date Occult GI bleeding 08/28/2019 1 Left inguinal hernia 05/16/2016 017 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 04/23/20152022 Hypokalemia 06/30/2009 04/21/2014 Family history of diabetes mellitus 10/11/2004 04/12/2018 Obesity, unspecified 10/10/2004 017 Other abnormal blood chemistry 10/10/2004 04/21/2014 Other convulsions 10/10/2004 04/21/2014 documented as of this encounter (statuses as of 11/17/2022) [facility] Past illness Narrative* Problem Noted Date Diagnosed Date Resolved Date Occult GI bleeding 08/28/2019 1 Left inguinal hernia 05/16/2016 017 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 04/23/20152022 Hypokalemia 06/30/2009 04/21/2014 Family history of diabetes mellitus 10/11/2004 04/12/2018 Obesity, unspecified 10/10/2004 017 Other abnormal blood chemistry 10/10/2004 04/21/2014 Other convulsions 10/10/2004 04/21/2014 documented as of this encounter (statuses as of 11/25/2022) [facility] of Past illness Narrative* Problem Noted Date Diagnosed Date Resolved Date Occult GI bleeding 08/28/2019 1 Left inguinal hernia 05/16/2016052 017 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 04/23/20152022 Hypokalemia 06/30/2009 04/21/2014 Family history of diabetes mellitus 10/11/2004 04/12/2018 Obesity, unspecified 10/10/2004 017 Other abnormal blood chemistry 10/10/2004 04/21/2014 Other convulsions 10/10/2004 04/21/2014 documented as of this encounter (statuses as of 11/25/2022) [facility] of Past illness Narrative* Problem Noted Date Diagnosed Date Resolved Date Occult GI bleeding 08/28/2019 Left inguinal hernia 05/16/2016 017 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 04/23/20152022 Hypokalemia 06/30/2009 04/21/2014 Family history of diabetes mellitus 10/11/2004 04/12/2018 Obesity, unspecified 10/10/2004 017 Other abnormal blood chemistry 10/10/2004 04/21/2014 Other convulsions 10/10/2004 04/21/2014 documented as of this encounter (statuses as of 11/26/2022) [facility] Overactive bladder- Primary Hypertonicity of bladder Urinary incontinence, unspecified type Urinary frequency Type 2 diabetes mellitus with polyneuropathy (HCC) Type II or unspecified type diabetes mellitus with neurological manifestations, not stated as uncontrolled Gait abnormality Abnormality of gait Other hyperlipidemia Primary hypertension Unspecified essential hypertension [facility] Diagnosis Urinary incontinence, unspecified type- Primary Acute cystitis with hematuria Acute cystitis [facility] Diagnosis Acute cystitis without hematuria- Primary Acute cystitis [facility] Diagnosis Type 2 diabetes mellitus with polyneuropathy (HCC)- Primary Type II or unspecified type diabetes mellitus with neurological manifestations, not stated as uncontrolled [facility] Diagnosis Gait abnormality- Primary Abnormality of gait [facility] Diagnosis Onset Date Resolution Status Acute metabolic encephalopathy resolved Acute UTI resolved Sepsis resolved Weight loss acute Constipation chronic Type 2 diabetes mellitus [facility] Work Phone: Evaluation note* Diagnosis Gait abnormality- Primary Abnormality of gait Abnormality of gait documented in this encounter [facility] note* Diagnosis Gait abnormality- Primary Abnormality of gait documented in this encounter [facility] note* Diagnosis Gait abnormality- Primary Abnormality of gait documented in this encounter [facility] note* Diagnosis Gait abnormality- Primary Abnormality of gait documented in this encounter [facility] note* Diagnosis Gait abnormality- Primary Abnormality of gait documented in this encounter [facility] note* Diagnosis Gait abnormality- Primary Abnormality of gait documented in this encounter [facility] note* Diagnosis Gait abnormality- Primary Abnormality of gait documented in this encounter [facility] note* Diagnosis Acid indigestion Dyspepsia and other specified disorders of function of stomach documented in this encounter [facility] note* Diagnosis Gait abnormality- Primary Abnormality of gait documented in this encounter [facility] note* Diagnosis Weight loss, abnormal- Primary Loss of weight Dysphagia, unspecified type Proteinuria, unspecified type documented in this encounter [facility] note* Diagnosis Primary hypertension- Primary Unspecified essential hypertension Screening for ischemic heart disease documented in this encounter [facility] note* Diagnosis Onset Date Resolution Status Essential hypertension chron ic Type 2 diabetes mellitus chr onic Weight loss chronic Constipation chronic Weight loss [facility] Work Phone: Evaluation note* Diagnosis Weight loss, abnormal- Primary Loss of weight Hypotension, unspecified hypotension type Type 2 diabetes mellitus with polyneuropathy (HCC) Type II or unspecified type diabetes mellitus with neurological manifestations, not stated as uncontrolled Dysphagia, unspecified type Primary hypertension Unspecified essential hypertension Cardiomyopathy, unspecified type (HCC) Encounter for immunization Need for other specified prophylactic vaccination against single bacterial disease documented in this encounter [facility] note* Diagnosis Dilated cardiomyopathy (HCC) Other primary cardiomyopathies documented in this encounter [facility] note* Diagnosis Dilated cardiomyopathy (HCC)- Primary Other primary cardiomyopathies documented in this encounter [facility] note* Diagnosis Onset Date Resolution Status Constipation chronic Weight loss chronic Epigastric pain acute Unintentional weight loss [place] Constipation [facility] Work Phone: Evaluation note* Diagnosis Urinary incontinence, unspecified type- Primary BPH with urinary obstruction Hypertrophy of prostate with urinary obstruction and other lower urinary tract symptoms (LUTS) documented in this encounter [facility] note* Diagnosis Weight loss, unintentional- Primary Loss of weight Dilated cardiomyopathy (HCC) Other primary cardiomyopathies Type 2 diabetes mellitus with polyneuropathy (HCC) Type II or unspecified type diabetes mellitus with neurological manifestations, not stated as uncontrolled Encounter for immunization Need for other specified prophylactic vaccination against single bacterial disease Delay in development Lack of normal physiological development, unspecified [facility] Onset Date Resolution Status Epigastric pain acute Unintentional weight loss [place] Constipation [facility] Work Phone: Evaluation note* Diagnosis Weight loss, unintentional- Primary Loss of weight Primary hypertension Unspecified essential hypertension Type 2 diabetes mellitus with polyneuropathy (HCC) Type II or unspecified type diabetes mellitus with neurological manifestations, not stated as uncontrolled [facility] Orthostatic hypotension- Primary Type 2 [...] unspecified type (HCC) [facility] Weight loss, unintentional- Primary Loss of weight Primary hypertension Unspecified essential hypertension Type 2 diabetes mellitus with polyneuropathy (HCC) Type II or unspecified type diabetes mellitus with neurological manifestations, not stated as uncontrolled Delay in development Lack of normal physiological development, unspecified [facility] Diagnosis Onset Date Resolution Status Essential hypertension chron ic Type 2 diabetes mellitus chr onic Weight loss chronic Tubular adenoma of rectum [place] Constipation [facility] Work Phone: Evaluation note* Diagnosis Urinary incontinence, unspecified type [facility] Diagnosis Orthostatic hypotension [I95.1]- Primary Orthostatic hypotension Cardiomyopathy, nonischemic (HCC) Other primary cardiomyopathies [facility] Diagnosis Type 2 diabetes mellitus [...] Loss of weight [facility] Diagnosis Onset Date Resolution Status Abnormal gastric folds acute Constipation chronic Weight loss chronic [facility] Work Phone: Evaluation note* Diagnosis Recurrent syncope- Primary History of seizure disorder Personal history of other disorders of nervous system and sense organs History of traumatic brain injury Personal history of traumatic brain injury Daytime sleepiness [facility] Diagnosis Recurrent syncope- Primary History of seizure disorder Personal history of other disorders of nervous system and sense organs History of traumatic brain injury Personal history of traumatic brain injury Daytime sleepiness [facility] Diagnosis Type 2 diabetes mellitus with polyneuropathy (HCC)- Primary Type II or unspecified type diabetes mellitus with neurological manifestations, not stated as uncontrolled Underweight Primary hypertension Unspecified essential hypertension Daytime sleepiness Other hyperlipidemia High serum vitamin D Vitamin D deficiency Unspecified vitamin D deficiency Encounter for long-term current use of medication [facility] Diagnosis Cardiomyopathy, nonischemic (HCC) [I42.8]- Primary Other primary cardiomyopathies Orthostatic hypotension [I95.1] Orthostatic hypotension [facility] Diagnosis Type 2 diabetes mellitus with polyneuropathy (HCC)- Primary Type II or unspecified type diabetes mellitus with neurological manifestations, not stated as uncontrolled Underweight History of hypertension Personal history of other diseases of circulatory system Vitamin D deficiency Unspecified vitamin D deficiency Cardiomyopathy, nonischemic (HCC) Other primary cardiomyopathies Encounter for long-term current use of medication [facility] Diagnosis Focal epilepsy (HCC) Localization-related (focal) (partial) epilepsy and epileptic syndromes with simple partial seizures, without mention of intractable epilepsy [facility] Diagnosis Onychomycosis- Primary Dermatophytosis of nail Pain in toe of left foot Pain in limb Pain in toe of right foot Pain in limb Hammer toe of left foot Hammer toe of right foot Callus of foot Corns and callosities Type 2 diabetes mellitus with polyneuropathy (HCC) Type II or unspecified type diabetes mellitus with neurological manifestations, not stated as uncontrolled Nevus Benign neoplasm of skin, site unspecified [facility] Focal epilepsy (HCC) Localization-related (focal) (partial) epilepsy and epileptic syndromes with simple partial seizures, without mention of intractable epilepsy [facility] Urinary incontinence, unspecified type [facility] Diagnosis Chronic diastolic congestive heart failure (HCC)- Primary Chronic diastolic heart failure Primary hypertension Unspecified essential hypertension [facility] Diagnosis Onychomycosis- Primary Dermatophytosis of nail Pain in toe of left foot Pain in limb Pain in toe of right foot Pain in limb Hammer toe of left foot Hammer toe of right foot Type 2 diabetes mellitus with polyneuropathy (HCC) Type II or unspecified type diabetes mellitus with neurological manifestations, not stated as uncontrolled [facility] Diagnosis Gait abnormality Abnormality of gait [facility] Diagnosis Type 2 diabetes mellitus with polyneuropathy (HCC)- Primary Type II or unspecified type diabetes mellitus with neurological manifestations, not stated as uncontrolled Focal epilepsy (HCC) Localization-related (focal) (partial) epilepsy and epileptic syndromes with simple partial seizures, without mention of intractable epilepsy Mixed hyperlipidemia Gastroparesis [facility] Diagnosis Onychomycosis- Primary Dermatophytosis of nail Pain in toe of left foot Pain in limb Pain in toe of right foot Pain in limb Type 2 diabetes mellitus with polyneuropathy (HCC) Type II or unspecified type diabetes mellitus with neurological manifestations, not stated as uncontrolled [facility] Diagnosis Viral upper respiratory tract infection- Primary Acute upper respiratory infections of unspecified site Acute cough Nasal congestion Other diseases of nasal cavity and sinuses Rhinitis, unspecified type Bilateral impacted cerumen Impacted cerumen [facility] Diagnosis Chronic diastolic congestive heart failure (HCC)- Primary Chronic diastolic heart failure [facility] Diagnosis URI, acute- Primary Acute upper respiratory infections of unspecified site Exposure to confirmed case of COVID-19 [facility] Diagnosis Onychomycosis- Primary Dermatophytosis of nail Pain in toe of left foot Pain in limb Pain in toe of right foot Pain in limb Type 2 diabetes mellitus with polyneuropathy (HCC) Type II or unspecified type diabetes mellitus with neurological manifestations, not stated as uncontrolled Hammer toe of right foot [facility] Diagnosis Other fatigue- Primary Encounter for therapeutic drug monitoring Type 2 diabetes mellitus with polyneuropathy (HCC) Type II or unspecified type diabetes mellitus with neurological manifestations, not stated as uncontrolled Vitamin D deficiency Unspecified vitamin D deficiency Screening for prostate cancer Special screening for malignant neoplasm of prostate [facility] Diagnosis Urinary incontinence, unspecified type [facility] Diagnosis Onychomycosis- Primary Dermatophytosis of nail Pain in toe of left foot Pain in limb Pain in toe of right foot Pain in limb Type 2 diabetes mellitus with polyneuropathy (HCC) Type II or unspecified type diabetes mellitus with neurological manifestations, not stated as uncontrolled Ingrowing toenail of left foot Ingrowing nail Ingrowing toenail of right foot Ingrowing nail [facility] Diagnosis Pressure injury of buttock, stage 1, unspecified laterality- Primary Ingrown toenail Ingrowing nail [facility] Diagnosis Ingrowing toenail of right foot- Primary Ingrowing nail [facility] Diagnosis Pressure injury of buttock, stage 1, unspecified laterality- Primary Ingrown toenail Ingrowing nail Sleep disturbance Sleep disturbance, unspecified Type 2 diabetes mellitus with polyneuropathy (HCC) Type II or unspecified type diabetes mellitus with neurological manifestations, not stated as uncontrolled Primary hypertension Unspecified essential hypertension [facility] Diagnosis Primary hypertension- Primary Unspecified essential hypertension Cardiomyopathy, nonischemic (HCC) Other primary cardiomyopathies [facility] Diagnosis Open wound of toe, initial encounter- Primary [facility] Diagnosis Open wound of toe, initial encounter- Primary [facility] Diagnosis Bilateral chronic knee pain- Primary Pain in joint, lower leg [facility] Author Diomedes Bey [facility] March 29, 2022 11:06am Note Date/Time March 29, 2022 1 1:06am [facility] Medical Records Department [address] [place] [address] History & Physical Exam 03/29/22 1106 MR#: [id number] Acct: [id number] Name: INNA ORTIZ Rep #:[id number] : 1955 67 From: Diomedes Friend DO PCP: Dr. Eliza Zamora MD Status:[facility] Location: [place] [address] History and Physical Date of Admission: 03/29/22 67 M who presents to the office today accompanied by family members including his sister with whom he lives for unintentional weight loss.? He has lost 20 pounds in the last 9 months.? He has a very good appetite and eats full meals 3 times a day, plus snacks and protein drink.? He does sometimes point to the epigastrium as an area that hurts. He is scheduled for upper and lower endoscopyin February 2022.? He cannot tolerate the dulcolax/miralax prep per sister, can try SuPrep. No nausea or vomiting.? He has chronic constipation, she reports aloe vera is helping.? He takes Colace daily. 01/18/22 labs by PCP: CBC and CMP all normal 11/2021 Increased total fecal fats; stool calprotectin 121 (normal 0-120); normal pancreatic elastase 10/2021 normal sed rate, normal LDH, normal CK, normal CRP, normal amylase, normal lipase, normal aldolase, normal CEA, normal CA 19-9, normal PSA, normal immunoglobulins, normal SPEP with DOMINICK, normal JESUSITA comprehensive, negative celiac BP 90/50s recently at home, sister is concerned about his low BP 11/2021 RUQ US neg ROS Const Constitutional: Positive for fatigue, weakness and weight change ENT ENT: Positive for difficulty swallowing Gastro GI: Positive for abdominal pain, bloating, constipation, difficulty swallowing and excessive flatus; No belching, change in bowel habits, change in stool character, coffee ground emesis, cramping, diarrhea, heartburn, feeling full early, incontinent of stools, Vomiting blood/hematemesis, Blood in stool, loose stools, Black,tarry stools, nausea/dyspepsia, pain with swallowing, vomiting or other Musc Musculoskeletal: Positive for abnormal gait, back pain, muscle weakness, stiffness and Arthritis; No joint pain Skin Skin: No yellowing of the eye or itchy eyes Neuro Neurology: Positive for abnormal gait and weakness Psych Psychiatric: Positive for anxiety and Positive for depression Endo Endocrine: Positive for fatigue and weight change Aller/Imm Allergy/Immunologic: No itchy eyes Tyler/Lymp Hematologic/Lymphatic: No easy bleeding or easy bruising Exam Const General: cooperative and comfortable Nutritional Appearance: thin Orientation: alert and awake Eyes Sclera: sclerae normal Resp Effort & Inspection: normal respiratory effort GI Inspection: normal to inspection Palpation: soft, no hepatosplenomegaly, no masses and nontender Quality Reporting Tobacco Screening ([facility] 138) Smoking Status: Never smoker Assessment and Plan Assessment and Plan (1) Unintentional weight loss: ?Status:?Acute ?Plan: 67-year-old male with developmental delay who is accompanied by his sister has unintentional weight loss despite good appetite and good intake, epigastric pain, constipation.? His abd US was neg, will get CT abd pel w/ oral and IV to eval abd pain and unintentional weight loss. He is scheduled for EGD and colonoscopy next month, SuPrep prescribed. (2) Epigastric pain: ?Status:?Acute ?Plan: As above (3) Constipation: ?Status:?Chronic ?Plan: As above ? ? ? Orders: Orders Abdomen/Pelvis WITH Contrast Today R10.9 - Unspecified abdominal pain, R63.4 - Abnormal weight loss ? Medications: New sodium,potassium,mag sulfates 17.5-3.13-1.6 gram (Suprep Bowel Prep Kit) ?DILUTE; drink full amount early evening before AND next morning at least 2 hr before procedure; follow w 32 oz. water PO 354 mL 0RF ? ? I have examined the patient and the H&P has been reviewed. There are no clinicalchanges since date of exam. 03/29/22 1106 <Electronically signed by Diomedes Bey DO> Cosigner Signature (if applicable): CC: Dr. Eliza Zamora MD; Diomedes Bey, ~ Signed [facility] Work Phone: [facility] Work Phone: Hospital Discharge instructions Additional Instructions Follow-up with your primary care physician and range conservationist if blood pressure continues to run low. Return to the ER if syncope or dizziness or falls or condition worsen anyway. [facility] Work Phone: Hospital Discharge instructions Additional Instructions [facility] Work Phone: Reason for referral (narrative)* Outpatient Procedure (Routine) - Closed Specialty Diagnoses / Procedures Referred By Valerio t Referred To Contact [facility] Diagnoses Screening for ischemic heart disease Procedures ECG COMPLETE ECG ROUTINE ECG W/LEAST 12 LDS W/I&R Dl Wheeler MD [address] [place] [address] [facility] [place] [address] [place] [address] Referral ID Status Reason Start Date Expiration Date V isits Requested Visits Authorized [id number] Closed Auto-Generate d Referral 10/11/2021 02/25/2022 1 1 [facility] for referral (narrative)* Outpatient Procedure (Routine) - Pending Review Specialty Diagnoses / Procedures Referred By Valerio chavez Referred To Contact [facility] Diagnoses Recurrent syncope History of seizure disorder History of traumatic brain injury Daytime sleepiness Procedures EPIL EEG LEAD PLACEMENT EEG EXTENDED MONITORING 61-119 MINUTES ELECTROENCEPHALOGRAM REC COMA/SLEEP ONLY Luiza Solares APRN.CNP [address] [place] [address] [facility] [address] [place] [address] Referral ID Status Reason Start Date Expiration Date Visits Requested Visits Authorized [id number] Pending Review Auto-Generat ed Referral 11/24/2022 11/25/2023 1 1 [facility] for referral (narrative)* Outpatient Procedure (Routine) - Pending Review Specialty Diagnoses / Procedures Referred By Valerio t Referred [facility] Diagnoses Chronic diastolic congestive heart failure (HCC) Procedures ECHO ECHO TTHRC R-T 2D W/WOM-MODE COMPL SPEC&COLR D Dl Wheeler MD [address], [address] [place] [address] [facility] [place] [address] [place] [address] Referral ID Status Reason Start Date Expiration Date Visits Requested Visits Authorized [id number] Pending Review Auto-Generat ed Referral 08/27/2023 08/19/2024 1 1 [facility] for referral (narrative)* Diagnostic Procedure Only (Routine) - Closed Specialty Diagnoses / Procedures Referred By Valerio t Referred To Contact XR IMAGING Diagnoses Gait abnormality Procedures XR KNEE GENERAL 4V AP BOTH/PA BOTH/LAT/MERC BILAT KNEE AP-WGT/LAT/MERCHANT Nehemiah Thomas MD [address] [place] [address] [place] [address] Referral ID Status Reason Start Date Expiration Date V isits Requested Visits Authorized [id number] Closed Auto-Generate d Referral 11/29/2020 12/29/2021 1 1 [facility] for referral (narrative)No reason for referral information [facility]Sc[facility] Work Phone: Reason for visit Narrative* Outpatient Procedure (Routine) - Closed Specialty Diagnoses / Procedures Referred By Contmisbah t Referred [facility] Diagnoses Dilated cardiomyopathy (HCC) Procedures ECHO ECHO TTHRC R-T 2D W/WOM-MODE COMPL SPEC&COLR Eliza Williamson MD [facility] [place] [address] [facility] [place] [address] [place] [address] Referral ID Status Reason Start Date Expiration Date V isits Requested Visits Authorized [id number] Closed Auto-Generate d Referral 02/06/2022 03/23/2022 1 1 [facility] Diagnostic Procedure Only (Routine) - Closed Specialty Diagnoses / Procedures Referred By Valerio chavez Referred To Contact XR IMAGING Diagnoses Gait abnormality Procedures XR KNEE GENERAL 4V AP BOTH/PA BOTH/LAT/MERC BILAT KNEE AP-WGT/LAT/MERCHANT Nehemiah Thomas MD [address] [place] [address] [place] [address] Referral ID Status Reason Start Date Expiration Date V isits Requested Visits Authorized [id number] Closed Auto-Generate d Referral 11/29/2020 12/29/2021 1 1 [facility] Summary Purpose Family History No Family History Records Found Relationship Condition Age at Onset Recorded Date/T hellen mother Coronary artery disease Unknown Diabetes mellitus Unknown Hypertension Unknown father Myocardial infarction 70 Advance Directives No Advanced Directives Records Found Advance Directive Response Recorded Date/ Time Living Will No April 28, 2021 5:39pm Power of Appeals Representative No April 28 5:39pm Advance Directive Response Recorded Date/ Time Living Will No March 16 11:04am Power of Appeals Representative No March 16, 2022 11:04am Advance Directive Response Recorded Date/ Time Living Will No March 27 2:41pm Power of Appeals Representative No March 27, 2022 2:41pm Advance Directive Response Recorded Date/ Time Name of Medical Power of Appeals Representative SISTER June 26, 2022 6:55pm Living Will Yes June 26, 2022 6: 55pm Power of Appeals Representative Yes June 26, 2022 6:55pm Advance Directive Response Recorded Date/ Time Living Will Yes June 26, 2022 5: 55pm Power of Appeals Representative Yes June 26, 2022 5:55pm Reason for Referral Specialty Diagnoses / Procedures Referred By Valerio chavez Referred To Contact Urology Diagnoses Urinary incontinence, unspecified type Overactive bladder Urinary frequency Procedures CONSULT TO UROLOGY OFFICE/OUTPATIENT NEW HIGH MDM 60-74 MINUTES Nehemiah Thomas MD [address] [place] [address] Referral ID Status Reason Start Date Expiration Date Visits Requested Visits Authorized [id number] Authorized PCP Requested Referral 05/30/2021 05/30/2022 1 1 Specialty Diagnoses / Procedures Referred By Contac t Referred To Contact Diagnoses Type 2 diabetes mellitus with polyneuropathy (HCC) Procedures CONSULT TO ENDOCRINOLOGY Nehemiah Thomas MD [address] [place] [address] Referral ID Status Reason Start Date Expiration Date Visits Requested Visits Authorized [id number] Ref Not Required PCP Requested Referral 06/13/2021 06/08/2022 1 1 Specialty Diagnoses / Procedures Referred By Contac t Referred To Contact Orthopedics Diagnoses Gait abnormality Procedures CONSULT TO ORTHOPAEDICS OFFICE/OUTPATIENT [facility]3] 60-74 MINUTES Nehemiah Thomas MD [address] [place] [address] Referral ID Status Reason Start Date Expiration Date V isits Requested Visits Authorized [id number] Closed PCP Requested Referral 04/20/2021 04/20/2022 1 1 Specialty Diagnoses / Procedures Referred By Contac t Referred To Contact Gastroenterology Diagnoses Weight loss, abnormal Dysphagia, unspecified type Procedures CONSULT TO GASTROENTEROLOGY Nehemiah Thomas MD [address] [place] [address] Referral ID Status Reason Start Date Expiration Date Visits Requested Visits Authorized [id number] Ref Not Required PCP Requested Referral 09/01/2021 09/01/2022 1 1 Specialty Diagnoses / Procedures Referred By Contac t Referred To Contact Dermatology Diagnoses Nevus Procedures CONSULT [place] [address] Referral ID Status Reason Start Date Expiration Date Visits Requested Visits Authorized [id number] Ref Not Required PCP Requested Referral 06/21/2023 06/20/2024 1 1 Chief Complaint and Reason for Visit Chief Complaint UTI, WEAKNESS UTI, WEAKNESS UTI, WEAKNESS 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, 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, 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, 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 Reason for Visit Acute metabolic ence phalopathy Acute UTI Sepsis Weight loss Constipation Type 2 diabetes mellitus Chief Complaint 3 M FU Consult E-ORDER Reason for Visit Essential hypertensi on Type 2 diabetes mellitus Weight loss Constipation Weight loss Chief Complaint Consult E-ORDER RUQ PAIN, CONSTIPATION Amb Documentation 3 M FU ABD PAIN HYPOTENSION Reason for Visit Constipation Weight loss Epigastric pain Unintentional weight loss Constipation Chief Complaint RUQ PAIN, CONSTIPATI ON Amb Documentation 3 M FU ABD PAIN HYPOTENSION Reason for Visit Epigastric pain Unintentional weight loss Constipation Chief Complaint ABD PAIN HYPOTENSION 6 M FU 3 MO FU cap endo MULTIPLE COMPLAINTS Reason for Visit Essential hypertensi on Type 2 diabetes mellitus Weight loss Tubular adenoma of rectum Constipation Chief Complaint cap endo MULTIPLE COMPLAINTS 3 MO FU SHANIKA Personal history of traumatic brain injury Reason for Visit Abnormal gastric fol ds Constipation Weight loss Chief Complaint 6 MO FU E-ORDER Reason for Visit Abnormal gastric fol ds Constipation Weight loss Chief Complaint 6 MO FU E-ORDER R63.4 Abnormal weight loss Reason for Visit Abnormal gastric fol ds Constipation Weight loss Chief Complaint Admit Date 3 M FU April 22, 2024 10:03am 6 M FU July 29, 2024 10:24 am 3 M FU July 30, 2024 1:19p m Reason for Visit Admit Date Abnormal gastric folds April 22 10:03am Constipation April 22, 2024 10:03am Weight loss April 22, 2024 10:03am Anxiety July 29, 2024 10:24 am Depression July 29, 2024 10:24 am Epilepsy July 29, 2024 10:24 am Insomnia July 29, 2024 10:24 am Developmental disability July 29, 2024 10:24am History of stroke July 29, 2024 10:24 am History of traumatic brain injury July 292024 10:24am Chief Complaint Admit Date 3 M FU April 22, 2024 10:03am 6 M FU July 29, 2024 10:24 am Reason for Visit Admit Date Abnormal gastric folds April 22 10:03am Constipation April 22, 2024 10:03am Weight loss April 22, 2024 10:03am Additional Source Comments (unrecognized sect ion and content) No Status Records FoundNo Status Records FoundNo Status Records FoundNo Status Records Found INFORMATION SOURCE (unrecogn ized section and content) DATE CREATED AUTHOR 08/20/2017 [facility] DATE CREATED AUTHOR AUTHOR'S ORGANIZ ATION 12/10/2022 [facility] DATE CREATED AUTHOR AUTHOR'S ORGANIZ ATION 10/08/2024 [facility] DATE CREATED AUTHOR AUTHOR'S ORGANIZ ATION 10/10/2024 [facility] Source Comments (unrecognize d section and content) In the event this informatio n is protected by the Federal Confidentiality of Alcohol and Drug Abuse Patient Records regulations: The Federal rules restrict any use of the information to criminally investigate or prosecute any alcohol or drug abuse patient.[facility] the event this information is protected by the Federal Confidentiality of Alcohol and Drug Abuse Patient Records regulations: The Federal rules restrict any use of the information to criminally investigate or prosecute any alcohol or drug abuse patient.[facility]In the event this information is protected by the Federal Confidentiality of Alcohol and Drug Abuse Patient Records regulations: The Federal rules restrict any use of the information to criminally investigate or prosecute any alcohol or drug abuse patient.[facility]In the event this information is protected by the Federal Confidentiality of Alcohol and Drug Abuse Patient Records regulations: The Federal rules restrict any use of the information to criminally investigate or prosecute any alcohol or drug abuse patient.[facility]In the event this information is protected by the Federal Confidentiality of Alcohol and Drug Abuse Patient Records regulations: The Federal rules restrict any use of the information to criminally investigate or prosecute any alcohol or drug abuse patient.[facility]In the event this information is protected by the Federal Confidentiality of Alcohol and Drug Abuse Patient Records regulations: The Federal rules restrict any use of the information to criminally investigate or prosecute any alcohol or drug abuse patient.[facility]In the event this information is protected by the Federal Confidentiality of Alcohol and Drug Abuse Patient Records regulations: The Federal rules restrict any use of the information to criminally investigate or prosecute any alcohol or drug abuse patient.[facility]In the event this information is protected by the Federal Confidentiality of Alcohol and Drug Abuse Patient Records regulations: The Federal rules restrict any use of the information to criminally investigate or prosecute any alcohol or drug abuse patient.[facility]In the event this information is protected by the Federal Confidentiality of Alcohol and Drug Abuse Patient Records regulations: The Federal rules restrict any use of the information to criminally investigate or prosecute any alcohol or drug abuse patient.[facility]In the event this information is protected by the Federal Confidentiality of Alcohol and Drug Abuse Patient Records regulations: The Federal rules restrict any use of the information to criminally investigate or prosecute any alcohol or drug abuse patient.[facility]In the event this information is protected by the Federal Confidentiality of Alcohol and Drug Abuse Patient Records regulations: The Federal rules restrict any use of the information to criminally investigate or prosecute any alcohol or drug abuse patient.[facility]In the event this information is protected by the Federal Confidentiality of Alcohol and Drug Abuse Patient Records regulations: The Federal rules restrict any use of the information to criminally investigate or prosecute any alcohol or drug abuse patient.[facility]In the event this information is protected by the Federal Confidentiality of Alcohol and Drug Abuse Patient Records regulations: The Federal rules restrict any use of the information to criminally investigate or prosecute any alcohol or drug abuse patient.[facility]In the event this information is protected by the Federal Confidentiality of Alcohol and Drug Abuse Patient Records regulations: The Federal rules restrict any use of the information to criminally investigate or prosecute any alcohol or drug abuse patient.[facility] HospitalIn the event this information is protected by the Federal Confidentiality of Alcohol and Drug Abuse Patient Records regulations: The Federal rules restrict any use of the information to criminally investigate or prosecute any alcohol or drug abuse patient.[facility] HospitalIn the event this information is protected by the Federal Confidentiality of Alcohol and Drug Abuse Patient Records regulations: The Federal rules restrict any use of the information to criminally investigate or prosecute any alcohol or drug abuse patient.[facility] HospitalIn the event this information is protected by the Federal Confidentiality of Alcohol and Drug Abuse Patient Records regulations: The Federal rules restrict any use of the information to criminally investigate or prosecute any alcohol or drug abuse patient.[facility] HospitalIn the event this information is protected by the Federal Confidentiality of Alcohol and Drug Abuse Patient Records regulations: The Federal rules restrict any use of the information to criminally investigate or prosecute any alcohol or drug abuse patient.[facility] HospitalIn the event this information is protected by the Federal Confidentiality of Alcohol and Drug Abuse Patient Records regulations: The Federal rules restrict any use of the information to criminally investigate or prosecute any alcohol or drug abuse patient.[facility] HospitalIn the event this information is protected by the Federal Confidentiality of Alcohol and Drug Abuse Patient Records regulations: The Federal rules restrict any use of the information to criminally investigate or prosecute any alcohol or drug abuse patient.[facility] HospitalIn the event this information is protected by the Federal Confidentiality of Alcohol and Drug Abuse Patient Records regulations: The Federal rules restrict any use of the information to criminally investigate or prosecute any alcohol or drug abuse patient.[facility] HospitalIn the event this information is protected by the Federal Confidentiality of Alcohol and Drug Abuse Patient Records regulations: The Federal rules restrict any use of the information to criminally investigate or prosecute any alcohol or drug abuse patient.[facility] HospitalIn the event this information is protected by the Federal Confidentiality of Alcohol and Drug Abuse Patient Records regulations: The Federal rules restrict any use of the information to criminally investigate or prosecute any alcohol or drug abuse patient.[facility] HospitalIn the event this information is protected by the Federal Confidentiality of Alcohol and Drug Abuse Patient Records regulations: The Federal rules restrict any use of the information to criminally investigate or prosecute any alcohol or drug abuse patient.[facility] HospitalIn the event this information is protected by the Federal Confidentiality of Alcohol and Drug Abuse Patient Records regulations: The Federal rules restrict any use of the information to criminally investigate or prosecute any alcohol or drug abuse patient.[facility] HospitalIn the event this information is protected by the Federal Confidentiality of Alcohol and Drug Abuse Patient Records regulations: The Federal rules restrict any use of the information to criminally investigate or prosecute any alcohol or drug abuse patient.[facility] HospitalIn the event this information is protected by the Federal Confidentiality of Alcohol and Drug Abuse Patient Records regulations: The Federal rules restrict any use of the information to criminally investigate or prosecute any alcohol or drug abuse patient.[facility] HospitalIn the event this information is protected by the Federal Confidentiality of Alcohol and Drug Abuse Patient Records regulations: The Federal rules restrict any use of the information to criminally investigate or prosecute any alcohol or drug abuse patient.[facility] HospitalIn the event this information is protected by the Federal Confidentiality of Alcohol and Drug Abuse Patient Records regulations: The Federal rules restrict any use of the information to criminally investigate or prosecute any alcohol or drug abuse patient.[facility] HospitalIn the event this information is protected by the Federal Confidentiality of Alcohol and Drug Abuse Patient Records regulations: The Federal rules restrict any use of the information to criminally investigate or prosecute any alcohol or drug abuse patient.[facility] HospitalIn the event this information is protected by the Federal Confidentiality of Alcohol and Drug Abuse Patient Records regulations: The Federal rules restrict any use of the information to criminally investigate or prosecute any alcohol or drug abuse patient.[facility] HospitalIn the event this information is protected by the Federal Confidentiality of Alcohol and Drug Abuse Patient Records regulations: The Federal rules restrict any use of the information to criminally investigate or prosecute any alcohol or drug abuse patient.[facility] HospitalIn the event this information is protected by the Federal Confidentiality of Alcohol and Drug Abuse Patient Records regulations: The Federal rules restrict any use of the information to criminally investigate or prosecute any alcohol or drug abuse patient.[facility] HospitalIn the event this information is protected by the Federal Confidentiality of Alcohol and Drug Abuse Patient Records regulations: The Federal rules restrict any use of the information to criminally investigate or prosecute any alcohol or drug abuse patient.[facility] HospitalIn the event this information is protected by the Federal Confidentiality of Alcohol and Drug Abuse Patient Records regulations: The Federal rules restrict any use of the information to criminally investigate or prosecute any alcohol or drug abuse patient.[facility] HospitalIn the event this information is protected by the Federal Confidentiality of Alcohol and Drug Abuse Patient Records regulations: The Federal rules restrict any use of the information to criminally investigate or prosecute any alcohol or drug abuse patient.[facility] HospitalIn the event this information is protected by the Federal Confidentiality of Alcohol and Drug Abuse Patient Records regulations: The Federal rules restrict any use of the information to criminally investigate or prosecute any alcohol or drug abuse patient.[facility] HospitalIn the event this information is protected by the Federal Confidentiality of Alcohol and Drug Abuse Patient Records regulations: The Federal rules restrict any use of the information to criminally investigate or prosecute any alcohol or drug abuse patient.[facility] HospitalIn the event this information is protected by the Federal Confidentiality of Alcohol and Drug Abuse Patient Records regulations: The Federal rules restrict any use of the information to criminally investigate or prosecute any alcohol or drug abuse patient.[facility] HospitalIn the event this information is protected by the Federal Confidentiality of Alcohol and Drug Abuse Patient Records regulations: The Federal rules restrict any use of the information to criminally investigate or prosecute any alcohol or drug abuse patient.[facility] HospitalIn the event this information is protected by the Federal Confidentiality of Alcohol and Drug Abuse Patient Records regulations: The Federal rules restrict any use of the information to criminally investigate or prosecute any alcohol or drug abuse patient.[facility] HospitalIn the event this information is protected by the Federal Confidentiality of Alcohol and Drug Abuse Patient Records regulations: The Federal rules restrict any use of the information to criminally investigate or prosecute any alcohol or drug abuse patient.[facility] HospitalIn the event this information is protected by the Federal Confidentiality of Alcohol and Drug Abuse Patient Records regulations: The Federal rules restrict any use of the information to criminally investigate or prosecute any alcohol or drug abuse patient.[facility] HospitalIn the event this information is protected by the Federal Confidentiality of Alcohol and Drug Abuse Patient Records regulations: The Federal rules restrict any use of the information to criminally investigate or prosecute any alcohol or drug abuse patient.[facility] HospitalIn the event this information is protected by the Federal Confidentiality of Alcohol and Drug Abuse Patient Records regulations: The Federal rules restrict any use of the information to criminally investigate or prosecute any alcohol or drug abuse patient.[facility] HospitalIn the event this information is protected by the Federal Confidentiality of Alcohol and Drug Abuse Patient Records regulations: The Federal rules restrict any use of the information to criminally investigate or prosecute any alcohol or drug abuse patient.[facility] HospitalIn the event this information is protected by the Federal Confidentiality of Alcohol and Drug Abuse Patient Records regulations: The Federal rules restrict any use of the information to criminally investigate or prosecute any alcohol or drug abuse patient.[facility] HospitalIn the event this information is protected by the Federal Confidentiality of Alcohol and Drug Abuse Patient Records regulations: The Federal rules restrict any use of the information to criminally investigate or prosecute any alcohol or drug abuse patient.[facility] HospitalIn the event this information is protected by the Federal Confidentiality of Alcohol and Drug Abuse Patient Records regulations: The Federal rules restrict any use of the information to criminally investigate or prosecute any alcohol or drug abuse patient.[facility] HospitalIn the event this information is protected by the Federal Confidentiality of Alcohol and Drug Abuse Patient Records regulations: The Federal rules restrict any use of the information to criminally investigate or prosecute any alcohol or drug abuse patient.[facility] HospitalIn the event this information is protected by the Federal Confidentiality of Alcohol and Drug Abuse Patient Records regulations: The Federal rules restrict any use of the information to criminally investigate or prosecute any alcohol or drug abuse patient.[facility] HospitalIn the event this information is protected by the Federal Confidentiality of Alcohol and Drug Abuse Patient Records regulations: The Federal rules restrict any use of the information to criminally investigate or prosecute any alcohol or drug abuse patient.[facility] HospitalIn the event this information is protected by the Federal Confidentiality of Alcohol and Drug Abuse Patient Records regulations: The Federal rules restrict any use of the information to criminally investigate or prosecute any alcohol or drug abuse patient.[facility] HospitalIn the event this information is protected by the Federal Confidentiality of Alcohol and Drug Abuse Patient Records regulations: The Federal rules restrict any use of the information to criminally investigate or prosecute any alcohol or drug abuse patient.[facility] HospitalIn the event this information is protected by the Federal Confidentiality of Alcohol and Drug Abuse Patient Records regulations: The Federal rules restrict any use of the information to criminally investigate or prosecute any alcohol or drug abuse patient.[facility] HospitalIn the event this information is protected by the Federal Confidentiality of Alcohol and Drug Abuse Patient Records regulations: The Federal rules restrict any use of the information to criminally investigate or prosecute any alcohol or drug abuse patient.[facility] HospitalIn the event this information is protected by the Federal Confidentiality of Alcohol and Drug Abuse Patient Records regulations: The Federal rules restrict any use of the information to criminally investigate or prosecute any alcohol or drug abuse patient.[facility] HospitalIn the event this information is protected by the Federal Confidentiality of Alcohol and Drug Abuse Patient Records regulations: The Federal rules restrict any use of the information to criminally investigate or prosecute any alcohol or drug abuse patient.[facility] HospitalIn the event this information is protected by the Federal Confidentiality of Alcohol and Drug Abuse Patient Records regulations: The Federal rules restrict any use of the information to criminally investigate or prosecute any alcohol or drug abuse patient.[facility] HospitalIn the event this information is protected by the Federal Confidentiality of Alcohol and Drug Abuse Patient Records regulations: The Federal rules restrict any use of the information to criminally investigate or prosecute any alcohol or drug abuse patient.[facility] HospitalIn the event this information is protected by the Federal Confidentiality of Alcohol and Drug Abuse Patient Records regulations: The Federal rules restrict any use of the information to criminally investigate or prosecute any alcohol or drug abuse patient.[facility] HospitalIn the event this information is protected by the Federal Confidentiality of Alcohol and Drug Abuse Patient Records regulations: The Federal rules restrict any use of the information to criminally investigate or prosecute any alcohol or drug abuse patient.[facility] HospitalIn the event this information is protected by the Federal Confidentiality of Alcohol and Drug Abuse Patient Records regulations: The Federal rules restrict any use of the information to criminally investigate or prosecute any alcohol or drug abuse patient.[facility] HospitalIn the event this information is protected by the Federal Confidentiality of Alcohol and Drug Abuse Patient Records regulations: The Federal rules restrict any use of the information to criminally investigate or prosecute any alcohol or drug abuse patient.[facility] HospitalIn the event this information is protected by the Federal Confidentiality of Alcohol and Drug Abuse Patient Records regulations: The Federal rules restrict any use of the information to criminally investigate or prosecute any alcohol or drug abuse patient.[facility] HospitalIn the event this information is protected by the Federal Confidentiality of Alcohol and Drug Abuse Patient Records regulations: The Federal rules restrict any use of the information to criminally investigate or prosecute any alcohol or drug abuse patient.[facility] HospitalIn the event this information is protected by the Federal Confidentiality of Alcohol and Drug Abuse Patient Records regulations: The Federal rules restrict any use of the information to criminally investigate or prosecute any alcohol or drug abuse patient.[facility] HospitalIn the event this information is protected by the Federal Confidentiality of Alcohol and Drug Abuse Patient Records regulations: The Federal rules restrict any use of the information to criminally investigate or prosecute any alcohol or drug abuse patient.[facility] HospitalIn the event this information is protected by the Federal Confidentiality of Alcohol and Drug Abuse Patient Records regulations: The Federal rules restrict any use of the information to criminally investigate or prosecute any alcohol or drug abuse patient.[facility] HospitalIn the event this information is protected by the Federal Confidentiality of Alcohol and Drug Abuse Patient Records regulations: The Federal rules restrict any use of the information to criminally investigate or prosecute any alcohol or drug abuse patient.[facility] HospitalIn the event this information is protected by the Federal Confidentiality of Alcohol and Drug Abuse Patient Records regulations: The Federal rules restrict any use of the information to criminally investigate or prosecute any alcohol or drug abuse patient.[facility] HospitalIn the event this information is protected by the Federal Confidentiality of Alcohol and Drug Abuse Patient Records regulations: The Federal rules restrict any use of the information to criminally investigate or prosecute any alcohol or drug abuse patient.[facility] HospitalIn the event this information is protected by the Federal Confidentiality of Alcohol and Drug Abuse Patient Records regulations: The Federal rules restrict any use of the information to criminally investigate or prosecute any alcohol or drug abuse patient.[facility] HospitalIn the event this information is protected by the Federal Confidentiality of Alcohol and Drug Abuse Patient Records regulations: The Federal rules restrict any use of the information to criminally investigate or prosecute any alcohol or drug abuse patient.[facility] HospitalIn the event this information is protected by the Federal Confidentiality of Alcohol and Drug Abuse Patient Records regulations: The Federal rules restrict any use of the information to criminally investigate or prosecute any alcohol or drug abuse patient.[facility] HospitalIn the event this information is protected by the Federal Confidentiality of Alcohol and Drug Abuse Patient Records regulations: The Federal rules restrict any use of the information to criminally investigate or prosecute any alcohol or drug abuse patient.[facility]In the event this information is protected by the Federal Confidentiality of Alcohol and Drug Abuse Patient Records regulations: The Federal rules restrict any use of the information to criminally investigate or prosecute any alcohol or drug abuse patient.[facility]In the event this information is protected by the Federal Confidentiality of Alcohol and Drug Abuse Patient Records regulations: The Federal rules restrict any use of the information to criminally investigate or prosecute any alcohol or drug abuse patient.[facility]In the event this information is protected by the Federal Confidentiality of Alcohol and Drug Abuse Patient Records regulations: The Federal rules restrict any use of the information to criminally investigate or prosecute any alcohol or drug abuse patient.[facility]In the event this information is protected by the Federal Confidentiality of Alcohol and Drug Abuse Patient Records regulations: The Federal rules restrict any use of the information to criminally investigate or prosecute any alcohol or drug abuse patient.[facility] HospitalIn the event this information is protected by the Federal Confidentiality of Alcohol and Drug Abuse Patient Records regulations: The Federal rules restrict any use of the information to criminally investigate or prosecute any alcohol or drug abuse patient.[facility] HospitalIn the event this information is protected by the Federal Confidentiality of Alcohol and Drug Abuse Patient Records regulations: The Federal rules restrict any use of the information to criminally investigate or prosecute any alcohol or drug abuse patient.[facility] HospitalIn the event this information is protected by the Federal Confidentiality of Alcohol and Drug Abuse Patient Records regulations: The Federal rules restrict any use of the information to criminally investigate or prosecute any alcohol or drug abuse patient.[facility] HospitalIn the event this information is protected by the Federal Confidentiality of Alcohol and Drug Abuse Patient Records regulations: The Federal rules restrict any use of the information to criminally investigate or prosecute any alcohol or drug abuse patient.[facility] HospitalIn the event this information is protected by the Federal Confidentiality of Alcohol and Drug Abuse Patient Records regulations: The Federal rules restrict any use of the information to criminally investigate or prosecute any alcohol or drug abuse patient.[facility] HospitalIn the event this information is protected by the Federal Confidentiality of Alcohol and Drug Abuse Patient Records regulations: The Federal rules restrict any use of the information to criminally investigate or prosecute any alcohol or drug abuse patient.[facility] HospitalIn the event this information is protected by the Federal Confidentiality of Alcohol and Drug Abuse Patient Records regulations: The Federal rules restrict any use of the information to criminally investigate or prosecute any alcohol or drug abuse patient.[facility] HospitalIn the event this information is protected by the Federal Confidentiality of Alcohol and Drug Abuse Patient Records regulations: The Federal rules restrict any use of the information to criminally investigate or prosecute any alcohol or drug abuse patient.[facility] HospitalIn the event this information is protected by the Federal Confidentiality of Alcohol and Drug Abuse Patient Records regulations: The Federal rules restrict any use of the information to criminally investigate or prosecute any alcohol or drug abuse patient.[facility] HospitalIn the event this information is protected by the Federal Confidentiality of Alcohol and Drug Abuse Patient Records regulations: The Federal rules restrict any use of the information to criminally investigate or prosecute any alcohol or drug abuse patient.[facility] HospitalIn the event this information is protected by the Federal Confidentiality of Alcohol and Drug Abuse Patient Records regulations: The Federal rules restrict any use of the information to criminally investigate or prosecute any alcohol or drug abuse patient.[facility] HospitalIn the event this information is protected by the Federal Confidentiality of Alcohol and Drug Abuse Patient Records regulations: The Federal rules restrict any use of the information to criminally investigate or prosecute any alcohol or drug abuse patient.[facility] HospitalIn the event this information is protected by the Federal Confidentiality of Alcohol and Drug Abuse Patient Records regulations: The Federal rules restrict any use of the information to criminally investigate or prosecute any alcohol or drug abuse patient.[facility] HospitalIn the event this information is protected by the Federal Confidentiality of Alcohol and Drug Abuse Patient Records regulations: The Federal rules restrict any use of the information to criminally investigate or prosecute any alcohol or drug abuse patient.[facility] HospitalIn the event this information is protected by the Federal Confidentiality of Alcohol and Drug Abuse Patient Records regulations: The Federal rules restrict any use of the information to criminally investigate or prosecute any alcohol or drug abuse patient.[facility] HospitalIn the event this information is protected by the Federal Confidentiality of Alcohol and Drug Abuse Patient Records regulations: The Federal rules restrict any use of the information to criminally investigate or prosecute any alcohol or drug abuse patient.[facility] HospitalIn the event this information is protected by the Federal Confidentiality of Alcohol and Drug Abuse Patient Records regulations: The Federal rules restrict any use of the information to criminally investigate or prosecute any alcohol or drug abuse patient.[facility] HospitalIn the event this information is protected by the Federal Confidentiality of Alcohol and Drug Abuse Patient Records regulations: The Federal rules restrict any use of the information to criminally investigate or prosecute any alcohol or drug abuse patient.[facility] HospitalIn the event this information is protected by the Federal Confidentiality of Alcohol and Drug Abuse Patient Records regulations: The Federal rules restrict any use of the information to criminally investigate or prosecute any alcohol or drug abuse patient.[facility] HospitalIn the event this information is protected by the Federal Confidentiality of Alcohol and Drug Abuse Patient Records regulations: The Federal rules restrict any use of the information to criminally investigate or prosecute any alcohol or drug abuse patient.[facility] HospitalIn the event this information is protected by the Federal Confidentiality of Alcohol and Drug Abuse Patient Records regulations: The Federal rules restrict any use of the information to criminally investigate or prosecute any alcohol or drug abuse patient.[facility] HospitalIn the event this information is protected by the Federal Confidentiality of Alcohol and Drug Abuse Patient Records regulations: The Federal rules restrict any use of the information to criminally investigate or prosecute any alcohol or drug abuse patient.[facility] Reason for Visit (unrecogniz ed section and content) Reason Comments PT Discharge Specialty Diagnoses / Procedures Referred By Valerio chavez Referred To Contact [facility] Diagnoses Abnormality of gait Procedures CONSULT TO PHYSICAL THERAPY PHYSICAL THERAPY EVALUATION HIGH COMPLEX 45 MINS Ruperto Encinas MD [address] [facility] [place] [address] [facility] [place] [address] [place] [address] Referral ID Status Reason Start Date Expiration Date V isits Requested Visits Authorized [id number] Authorized 02/26/2021 02/25/2022 30 30 Reason Comments Physical Therapy Reason Comments Orders Reason Comments F/U 6 months Reason Comments Follow Up Specialty Diagnoses / Procedures Referred By Valerio chavez Referred To Contact Urology / UROLOGY Diagnoses Urinary incontinence, unspecified type Overactive bladder Urinary frequency Procedures CONSULT TO UROLOGY OFFICE/OUTPATIENT NEW HIGH MDM 60-74 MINUTES Nehemiah Thomas MD [address] [place] [address] [facility] [address] [place] [address] Referral ID Status Reason Start Date Expiration Date V isits Requested Visits Authorized [id number] Closed PCP Requested Referral 05/30/2021 05/30/2022 1 [...] Consult Specialty Diagnoses / Procedures Referred By Valerio chavez Referred To Contact Urology / UROLOGY Diagnoses prostate nodule- testing at [facility] oon 03/06 Procedures EST UROL Eliza Zamora MD [address] [place] [address] Huy Rodríguez PA-C [address] [place] [address] Referral ID Status Reason Start Date Expiration Date Visits Re quested Visits Authorized [id number] Closed 03/10/2022 06/08/2022 1 1 Reason Comments Patient Update Reason Comments Established Patient Follow up Reason Comments pre admission testing Reason Comments Recheck blood pressure low Reason Comments [facility] ER f/up 03/16 BP Reason Comments [...] Transition Of Care 01/01/2023 TCM follow up [facility] Discharge 12/06/22 Reason Comments Refill Request Reason Comments Patient Question Reason Onset Date Comments Refill Request 02/02/2023 Reason Comments Follow Up Post 30 day halter m onitor Reason Onset Date Comments Refill Request 06/18/2023 Reason Comments Established Patient Diabetic Foot Care Reason Onset Date Comments Refill Request 07/16/2023 Reason Onset Date Comments Refill Request 07/30/2023 Reason Comments Established Patient Reason Comments Established Patient Follow Up Diabetic Foot Check Reason Comments F/U 6 months Labs prior Reason Onset Date Comments Refill Request 01/22/2024 Reason Comments Same Day Appointment X 2 weeks possible sore throat, cough, runny nose, sneezing and headache Reason Comments Nasal Congestion drainage, sneezing a nd cough x 3 weeks Reason Onset Date Comments Refill Request 05/14/2024 Reason Comments F/U 6 months more fatigue, increa se incontinence, blood sugars and blood pressure is elevated Reason Onset Date Comments Refill Request 07/23/2024 Reason Comments Wound Evaluation Possible pressure wo und on buttocks Reason Comments Established Patient Follow Up Ingrown Nail Specialty Diagnoses / Procedures Referred By Valerio chavez Referred To Contact Podiatry / PODIATRY Diagnoses procedure Procedures SHAY ESTABLISH Claudette Branch [address] [place] [address] Phone: tel: fax: Claudette Branch [address] [place] [address] Phone: tel: fax: Referral ID Status Reason Start Date Expiration Date Visits Requested Visits Authorized [id number] Authorized Patient Cleared - Admin/Chairm an/Director advise to proceed or did not respond 04/07/2024 02/25/2025 1 99 Reason Comments 2 week follow up did have toe nail re moved and is looking better Reason Comments PT Eval Specialty Diagnoses / Procedures Referred By Valerio chavez Referred To Contact [facility] Diagnoses Chronic pain of both knees Leg weakness, bilateral History of knee problem Procedures PHYSICAL THERAPY EVALUATION HIGH COMPLEX 45 MINS THERAPEUTIC EXERCISES RE, EA 15 MIN. Ambar Ladd APRN.RELIEF WORKER [address] [place] [address] Phone: tel: fax: [facility] [address] [place] [address] Referral ID Status Reason Start Date Expiration Date Visits Requested Visits Authorized [id number] Authorized Auto-Generat ed Referral 02/27/2024 02/25/2025 20 20 Care Teams (unrecognized sec tion and content) Intelligence Agent Relationship Specialty Start Date End Date Nehemiah Thomas MD [address] [place] [address] PCP - General Internal Medicine 05/07/14 [place], [place] S [address] [place] [address] Physician Cardiology 06/25/18 Intelligence Agent Relationship Specialty Start Date End Date Nehemiah Thomas MD [address] [place] [address] PCP - General Internal Medicine 05/07/14 [place], Kj S [address] [place] [address] Physician Cardiology 06/25/18 Intelligence Agent Relationship Specialty Start Date End Date Nehemiah Thomas MD [address] [place] [address] PCP - General Internal Medicine 05/07/14 [place], Kj S [address] [place] [address] Physician Cardiology 06/25/18 Intelligence Agent Relationship Specialty Start Date End Date Nehemiah Thomas MD [address] [place] [address] PCP - General Internal Medicine 05/07/14 [place], [place] S [address] [place] [address] Physician Cardiology 06/25/18 Intelligence Agent Relationship Specialty Start Date End Date Nehemiah Thomas MD [address] [place] [address] PCP - General Internal Medicine 05/07/14 [place], [place] S [address] [place] [address] Physician Cardiology 06/25/18 Intelligence Agent Relationship Specialty Start Date End Date Nehemiah Thomas MD [address] [place] [address] PCP - General Internal Medicine 05/07/14 [place], [place] S [address] [place] [address] Physician Cardiology 06/25/18 Intelligence Agent Relationship Specialty Start Date End Date Nehemiah Thomas MD [address] [place] [address] PCP - General Internal Medicine 05/07/14 [place], [place] S [address] [place] [address] Physician Cardiology 06/25/18 Intelligence Agent Relationship Specialty Start Date End Date Nehemiah Thomas MD [address] [place] [address] PCP - General Internal Medicine 05/07/14 [place], [place] S [address] [place] [address] Physician Cardiology 06/25/18 Intelligence Agent Relationship Specialty Start Date End Date Nehemiah Thomas MD [address] [place] [address] PCP - General Internal Medicine 05/07/14 [place], [place] S [address] [place] [address] Physician Cardiology 06/25/18 Intelligence Agent Relationship Specialty Start Date End Date Nehemiah Thomas MD [address] [place] [address] PCP - General Internal Medicine 05/07/14 [place], [place] [address] [place] [address] Physician Cardiology 06/25/18 Intelligence Agent Relationship Specialty Start Date End Date Nehemiah Thomas MD [address] [place] [address] PCP - General Internal Medicine 05/07/14 [place], [place] S [address] [place] [address] Physician Cardiology 06/25/18 Intelligence Agent Relationship Specialty Start Date End Date Nehemiah Thomas MD [address] [place] [address] PCP - General Internal Medicine 05/07/14 [place], [place] S [address] [place] [address] Physician Cardiology 06/25/18 Intelligence Agent Relationship Specialty Start Date End Date Nehemiah Thomas MD [address] [place] [address] PCP - General Internal Medicine 05/07/14 [place], [place] [address] [place] [address] Physician Cardiology 06/25/18 Intelligence Agent Relationship Specialty Start Date End Date Nehemiah Thomas MD [address] [place] [address] PCP - General Internal Medicine 05/07/14 [place], [place] S [address] [place] [address] Physician Cardiology 06/25/18 Intelligence Agent Relationship Specialty Start Date End Date Nehemiah Thomas MD [address] [place] [address] PCP - General Internal Medicine 05/07/14 [place], [place] S [address] [place] [address] Physician Cardiology 06/25/18 Intelligence Agent Relationship Specialty Start Date End Date Nehemiah Thomas MD [address] [place] [address] PCP - General Internal Medicine 05/07/14 [place], [place] S [address] [place] [address] Physician Cardiology 06/25/18 Intelligence Agent Relationship Specialty Start Date End Date Nehemiah Thomas MD [address] [place] [address] PCP - General Internal Medicine 05/07/14 [place], [place] S [address] [place] [address] Physician Cardiology 06/25/18 Intelligence Agent Relationship Specialty Start Date End Date Nehemiah Thomas MD [address] [place] [address] PCP - General Internal Medicine 05/07/14 [place], [place] S [address] [place] [address] Physician Cardiology 06/25/18 Intelligence Agent Relationship Specialty Start Date End Date Eliza Zamora MD [address] [place] [address] PCP - General Internal Medicine 01/28/22 [place], [place] S [address] [place] [address] Physician Cardiology 06/25/18 Intelligence Agent Relationship Specialty Start Date End Date Eliza Zamora MD [address] [place] [address] PCP - General Internal Medicine 01/28/22 [place], [place] S [address] [place] [address] Physician Cardiology 06/25/18 Intelligence Agent Relationship Specialty Start Date End Date Eliza Zamora MD [address] [place] [address] PCP - General Internal Medicine 01/28/22 [place], [place] [address] [place] [address] Physician Cardiology 06/25/18 Intelligence Agent Relationship Specialty Start Date End Date Eliza Zamora MD [address] [place] [address] PCP - General Internal Medicine 01/28/22 [place], [place] S [address] [place] [address] Physician Cardiology 06/25/18 Intelligence Agent Relationship Specialty Start Date End Date Eliza Zamora MD [address] [place] [address] PCP - General Internal Medicine 01/28/22 [place], [place] S [address] [place] [address] Physician Cardiology 06/25/18 Intelligence Agent Relationship Specialty Start Date End Date Eliza Zamora MD [address] [place] [address] PCP - General Internal Medicine 01/28/22 [place], [place] [address] [address] Physician Cardiology 06/25/18 Team Status: Active Member Role Status Dates Dr. Nehemiah Thoams MD Family Provider Active Dr. Eliza Zamora MD Primary Care Provider Active Team Status: Inactive Member Role Status Dates Dr. Nehemiah Thomas MD Primary Care Provider, Refer ring Provider Active Dr. Diomedes Bey DO Attending Provider Active Team Status: Inactive Member Role Status Dates Dr. Nehemiah Thomas MD Primary Care Provider, Refer ring Provider Active [place] Javier BARREL ASSEMBLER HELPER, BARREL ASSEMBLER HELPER-C Attending Provider Active Team Status: Active Member Role Status Dates Dr. Nehemiah Thomas MD Primary Care Provider Active Toño Blunt Attending Provider Active Team Status: Inactive Member Role Status Dates Dr. Nehemiah Thomas MD Primary Care Provider Active Dr. Diomedes Bey DO Attending Provider, Referring Provider Active Team Status: Active Member Role Status Dates [place] Javier BARREL ASSEMBLER HELPER, BARREL ASSEMBLER HELPER-C Attending Provider Active Dr. Eliza Zamora MD Primary Care Provider Active Team Status: Inactive Member Role Status Dates Dr. Eliza Zamora MD Primary Care Provider Active Dr. Dandy Rodriguez DO Emergency Provider Active Intelligence Agent Relationship Specialty Start Date End Date Eliza Zamora MD [address] [place] [address] PCP - General Internal Medicine 01/28/22 [facility] [place] [address] [address] Physician Cardiology 06/25/18 Intelligence Agent Relationship Specialty Start Date End Date Eliza Zamoar MD [address] [place] [address] PCP - General Internal Medicine 01/28/22 [facility], [place] S [address] [address] Physician Cardiology 06/25/18 Intelligence Agent Relationship Specialty Start Date End Date Eliza Zamora MD [address] [place] [address] PCP - General Internal Medicine 01/28/22 [place], [place] S [address] [place] [address] Physician Cardiology 06/25/18 Team Status: Active Member Role Status Dates Dr. Eliza Zamora MD Primary Care Provider, Referr ing Provider Active Dr. Diomedes Bey DO Attending Provider, Other Prov ider Active Team Status: Inactive Member Role Status Dates [place] Javier BARREL ASSEMBLER HELPER, BARREL ASSEMBLER HELPER-C Attending Provider Active Dr. Eliza Zamora MD Primary Care Provider Active Team Status: Inactive Member Role Status Dates Dr. Eliza Zamora MD Primary Care Provider, Referr ing Provider Active Dr. Diomedes Bey DO Attending Provider Active Team Status: Inactive Member Role Status Dates Dr. Eliza Zamora MD Primary Care Provider Active Dr. Dandy Rodriguez DO Attending Provider, Emergency Pro vider Active Intelligence Agent Relationship Specialty Start Date End Date Eliza Zamora MD [address] [place] [address] PCP - General Internal Medicine 01/28/22 [facility], [place] S [address] [place] [address] Physician Cardiology 06/25/18 Intelligence Agent Relationship Specialty Start Date End Date Eliza Zamora MD [address] [place] [address] PCP - General Internal Medicine 01/28/22 [place], [place] S [address] [place] [address] Physician Cardiology 06/25/18 Team Status: Inactive Member Role Status Dates Dr. Nehemiah Thomas MD Referring Provider Active Melanie Riggs NP-C Attending Provider Active Dr. Eliza Zamora MD Primary Care Provider Active Team Status: Inactive Member Role Status Dates Dr. Nehemiah Thomas MD Referring Provider Active [place] Javier BARREL ASSEMBLER HELPER, BARREL ASSEMBLER HELPER-C Attending Provider Active Dr. Eliza Zamora MD Primary Care Provider Active Team Status: Inactive Member Role Status Dates Dr. Eliza Zamora MD Primary Care Provider Active Dr. Ruperto Baker MD Emergency Provider Active Team Status: Inactive Member Role Status Dates Dr. Eliza Zamora MD Primary Care Provider Active Dr. Ruperto Baker MD Attending Provider, Emergency Provider Active Team Status: Inactive Member Role Status Dates Dr. Eliza Zamora MD Primary Care Provider Active [place] Javier BARREL ASSEMBLER HELPER, BARREL ASSEMBLER HELPER-C Attending Provider, Referrin g Provider Active Intelligence Agent Relationship Specialty Start Date End Date Eliza Zamora MD [address] [place] [address] PCP - General Internal Medicine 01/28/22 [place], [place] [address] [place] [address] Physician Cardiology 06/25/18 Intelligence Agent Relationship Specialty Start Date End Date Eliza Zamora MD [address] [place] [address] PCP - General Internal Medicine 01/28/22 [place], [place] S [address] [place] [address] Physician Cardiology 06/25/18 Intelligence Agent Relationship Specialty Start Date End Date Eliza Zamora MD [address] [place] [address] PCP - General Internal Medicine 01/28/22 [place], [place] S [address] [address] Physician Cardiology 06/25/18 Intelligence Agent Relationship Specialty Start Date End Date Eliza Zamora MD [address] [place] [address] PCP - General Internal Medicine 01/28/22 [place], [place] S [address] [address] Physician Cardiology 06/25/18 Intelligence Agent Relationship Specialty Start Date End Date Eliza Zamora MD [address] [place] [address] PCP - General Internal Medicine 01/28/22 [place], [place] S [address] [address] Physician Cardiology 06/25/18 Team Status: Inactive Member Role Status Dates Dr. Eliza Zamora MD Primary Care Provider, Referr ing Provider Active [place] Javier BARREL ASSEMBLER HELPER, BARREL ASSEMBLER HELPER-C Attending Provider Active Team Status: Inactive Member Role Status Dates Dr. Eliza Zamora MD Primary Care Provider Active Dr. Mal Carpio MD Attending Provider Active Team Status: Active Member Role Status Dates Dr. Eliza Zamora MD Primary Care Provider Active Dr. Mal Carpio MD Attending Provider, Referring P rovider Active Team Status: Inactive Member Role Status Dates Dr. Eliza Zamora MD Primary Care Provider Active Dr. Mal Carpio MD Attending Provider, Referring P rovider Active Intelligence Agent Relationship Specialty Start Date End Date Eliza Zamora MD [address] [place], [place] [address] PCP - General Internal Medicine 01/28/22 Kj Bird S [address] [facility] [address] [place] [address] Physician Cardiology 06/25/18 Intelligence Agent Relationship Specialty Start Date End Date Eliza Zamora MD [address] [place] [address] PCP - General Internal Medicine 01/28/22 Kj Bird [address] [place] [address] Physician Cardiology 06/25/18 Intelligence Agent Relationship Specialty Start Date End Date Eliza Zamora MD [address] [place] [address] PCP - General Internal Medicine 01/28/22 Kj Bird MD [address] [place] [address] Physician Cardiology 06/25/18 Intelligence Agent Relationship Specialty Start Date End Date Eliza Zamora MD [address] [place] [address] PCP - General Internal Medicine 01/28/22 Kj Bird MD [address] [address] Physician Cardiology 06/25/18 Intelligence Agent Relationship Specialty Start Date End Date Eliza Zamora MD [address] [place] [address] PCP - General Internal Medicine 01/28/22 Kj Bird MD [address] [place] [address] Physician Cardiology 06/25/18 Intelligence Agent Relationship Specialty Start Date End Date Eliza Zamora MD [address] [place] [address] PCP - General Internal Medicine 01/28/22 Kj Bird MD [address] [address] Physician Cardiology 06/25/18 Intelligence Agent Relationship Specialty Start Date End Date Eliza Zamora MD [address] [place] [address] PCP - General Internal Medicine 01/28/22 Kj Bird MD [address] [address] Physician Cardiology 06/25/18 Jean Carlos Mirza RN [address] [place], [place] [id number] Primary Care Propulsion Engineer Internal Medicine 12/07/22 01/06/23 Intelligence Agent Relationship Specialty Start Date End Date Eliza Zamora MD [address] [place] [address] PCP - General Internal Medicine 01/28/22 Kj Bird MD [address] [address] Physician Cardiology 06/25/18 Jean Carlos Mirza RN [address] [place], [place] [id number] [phone] Primary Care Propulsion Engineer Internal Medicine 12/07/22 01/06/23 Intelligence Agent Relationship Specialty Start Date End Date Eliza Zamora MD [address] [place] [address] PCP - General Internal Medicine 01/28/22 Kj Bird MD [address] [phone] Physician Cardiology 06/25/18 Jean Carlos Mirza, RN [address] [place] [address] Primary Care Propulsion Engineer Internal Medicine 12/07/22 01/06/23 Intelligence Agent Relationship Specialty Start Date End Date Eliza Zamora MD [address] [place] [address] PCP - General Internal Medicine 01/28/22 Kj Bird MD [address] [address] Physician Cardiology 06/25/18 Team Status: Inactive Member Role Status Dates Dr. Eliza Zamora MD Primary Care Provider Active Dr. Diomedes Bey , DO Attending Provider, Referring Provider Active Intelligence Agent Relationship Specialty Start Date End Date Eliza Zamora MD [address] [place] [address] PCP - General Internal Medicine 01/28/22 Kj iBrd MD [address] [address] Physician Cardiology 06/25/18 Intelligence Agent Relationship Specialty Start Date End Date Eliza Zamora MD [address] [place] [address] PCP - General Internal Medicine 01/28/22 Kj Bird MD [address] [address] Physician Cardiology 06/25/18 Intelligence Agent Relationship Specialty Start Date End Date Eliza Zamora MD [address] [place] [address] PCP - General Internal Medicine 01/28/22 Kj Bird MD [address] [address] Physician Cardiology 06/25/18 Intelligence Agent Relationship Specialty Start Date End Date Eliza Zamora MD [address] [place] [address] PCP - General Internal Medicine 01/28/22 Kj Bird MD [address] [address] Physician Cardiology 06/25/18 Intelligence Agent Relationship Specialty Start Date End Date Eliza Zamora MD [address] [place] [address] PCP - General Internal Medicine 01/28/22 Kj Bird MD [address] [address] Physician Cardiology 06/25/18 Intelligence Agent Relationship Specialty Start Date End Date Eliza Zamora MD [address] [place] [address] PCP - General Internal Medicine 01/28/22 Kj Bird MD [address] [address] Physician Cardiology 06/25/18 Intelligence Agent Relationship Specialty Start Date End Date Eliza Zamora MD [address] [place] [address] PCP - General Internal Medicine 01/28/22 Kj Bird MD [address] [address] Physician Cardiology 06/25/18 Intelligence Agent Relationship Specialty Start Date End Date Eliza Zamora MD [address] [place] [address] PCP - General Internal Medicine 01/28/22 Kj Bird MD [address] [address] Physician Cardiology 06/25/18 Intelligence Agent Relationship Specialty Start Date End Date Nehemiah Thomas MD [address] [place] [address] PCP - General Internal Medicine 05/07/14 01/27/22 Kj Bird MD [address] [address] Physician Cardiology 06/25/18 Intelligence Agent Relationship Specialty Start Date End Date Eliza Zamora MD [address] [place] [address] PCP - General Internal Medicine 01/28/22 Kj Bird MD [address] [place] [address] Physician Cardiology 06/25/18 Tayla Goel, HOBBING MACHINE OPERATOR.FORMAL WEAR RENTAL CLERK [address] [place] [address] [employer] Internal Medicine 02/04/24 Ambar Ladd HOBBING MACHINE OPERATOR.RELIEF WORKER [address] [place] [address] [employer] Internal Medicine 02/04/24 Intelligence Agent Relationship Specialty Start Date End Date Eliza Zamora MD [address] [place] [address] PCP - General Internal Medicine 01/28/22 Kj Bird MD [address] [address] Physician Cardiology 06/25/18 Tayla Goel, HOBBING MACHINE OPERATOR.FORMAL WEAR RENTAL CLERK [address] [place] [address] [employer] Internal Medicine 02/04/24 Ambar Ladd HOBBING MACHINE OPERATOR.RELIEF WORKER [address] [place] [address] [employer] Internal Medicine 02/04/24 Intelligence Agent Relationship Specialty Start Date End Date Eliza Zamora MD [address] [place] [address] PCP - General Internal Medicine 01/28/22 Kj Bird MD [address] [facility] [address] [place] [address] Physician Cardiology 06/25/18 Tayla Goel, HOBBING MACHINE OPERATOR.FORMAL WEAR RENTAL CLERK [address] [place] [address] [employer] Internal Medicine 02/04/24 Ambar Ladd HOBBING MACHINE OPERATOR.RELIEF WORKER [address] [place] [address] [employer] Internal Medicine 02/04/24 Intelligence Agent Relationship Specialty Start Date End Date Eliza Zamora MD [address] [place] [address] PCP - General Internal Medicine 01/28/22 Kj Bird MD [address] [place] [address] Physician Cardiology 06/25/18 Tayla Goel, HOBBING MACHINE OPERATOR.FORMAL WEAR RENTAL CLERK [address] [place] [address] [employer] Internal Medicine 02/04/24 Ambar Ladd HOBBING MACHINE OPERATOR.RELIEF WORKER [address] [place] [address] [facility] Internal Medicine 02/04/24 Intelligence Agent Relationship Specialty Start Date End Date Eliza Zamora MD [address] [place] [address] PCP - General Internal Medicine 01/28/22 Kj Bird MD [address] [place] [address] Physician Cardiology 06/25/18 Tayla Goel, HOBBING MACHINE OPERATOR.FORMAL WEAR RENTAL CLERK [address] [place] [address] [employer] Internal Medicine 02/04/24 Ambar Ladd HOBBING MACHINE OPERATOR.RELIEF WORKER [address] [place] [address] [employer] Internal Medicine 05/20/24 Intelligence Agent Relationship Specialty Start Date End Date Eliza Zamora MD [address] [place] [address] PCP - General Internal Medicine 01/28/22 Kj Bird MD [address] [place] [address] Physician Cardiology 06/25/18 Ambar Ladd HOBBING MACHINE OPERATOR.RELIEF WORKER [address] [place] [address] [employer] Internal Medicine 05/20/24 Tayla Goel, HOBBING MACHINE OPERATOR.FORMAL WEAR RENTAL CLERK [address] [place] [address] [employer] Internal Medicine 07/16/24 Intelligence Agent Relationship Specialty Start Date End Date Eliza Zamroa MD [address] [place] [address] PCP - General Internal Medicine 01/28/22 Kj Bird MD [address] [place] [address] Physician Cardiology 06/25/18 Ambar Ladd APRN.RELIEF WORKER [address] [place] [address] [employer] Internal Medicine 05/20/24 Tayla Goel APRN.FORMAL WEAR RENTAL CLERK [address] [place] [address] [facility] Internal Medicine 07/16/24 Intelligence Agent Relationship Specialty Start Date End Date Eliza Zamora MD [address] [place] [address] PCP - General Internal Medicine 01/28/22 Kj Bird MD [address] [facility] [address] [place] [address] Physician Cardiology 06/25/18 Tayla Goel APRN.FORMAL WEAR RENTAL CLERK [address] [place] [address] [employer] Internal Medicine 02/04/24 07/15/24 Ambar Ladd HOBBING MACHINE OPERATOR.RELIEF WORKER [address] [place] [address] [employer] [employer] Internal Medicine 05/20/24 Tayla Goel HOBBING MACHINE OPERATOR.FORMAL WEAR RENTAL CLERK [address] [place] [address] [facility] Internal Medicine 07/16/24 Team Status: Inactive Member Role Status Dates Dr. Eliza Zamora MD Primary Care Provider Active Start: April 22, 2024 End: April 22, 2024 Dr. Eliza Zamora MD Referring Provider Active Start: April 22, 2024 End: April 22, 2024 Dr. Diomedes Bey DO Attending Provider Active Start: April 22, 2024 End: April 22, 2024 Team Status: Inactive Member Role Status Dates Dr. Eliza Zamora MD Referring Provider Active Start: July 29, 2024 End: July 29, 2024 Dr. Tom Sparks MD Attending Provider Active Start: July 29, 2024 End: July 29, 2024 Team Status: Inactive Member Role Status Dates Dr. Eliza Zamora MD Referring Provider Active Start: July 30, 2024 End: July 30, 2024 Dr. Diomedes Bey DO Attending Provider Active Start: July 30, 2024 End: July 30, 2024 Intelligence Agent Relationship Specialty Start Date End Date Eliza Zamora MD [address] [place] [address] PCP - General Internal Medicine 01/28/22 Kj Bird MD [address] [facility] [address] [place] [address] Physician Cardiology 06/25/18 Ambar Ladd APRN.RELIEF WORKER [address] [place] [address] [employer] Internal Medicine 05/20/24 Tayla Goel APRN.FORMAL WEAR RENTAL CLERK [address] [place] [address] [employer] Internal Medicine 07/16/24 Intelligence Agent Relationship Specialty Start Date End Date Eliza Zamora MD [address] [place] [address] PCP - General Internal Medicine 01/28/22 Kj Bird MD [address] [facility] [address] [place] [address] Physician Cardiology 06/25/18 Ambar Ladd HOBBING MACHINE OPERATOR.RELIEF WORKER [address] [place] [address] [employer] [employer] [facility] Internal Medicine 05/20/24 Tayla Goel, HOBBING MACHINE OPERATOR.FORMAL WEAR RENTAL CLERK [address] [place] [address] [employer] Internal Medicine 07/16/24 Intelligence Agent Relationship Specialty Start Date End Date Eliza Zamora MD [address] [place] [address] PCP - General Internal Medicine 01/28/22 Kj Bird MD [address] [place] [address] Physician Cardiology 06/25/18 Ambar Ladd HOBBING MACHINE OPERATOR.RELIEF WORKER [address] [place] [address] [employer] [employer] [facility] Internal Medicine 05/20/24 Tayla Goel, HOBBING MACHINE OPERATOR.FORMAL WEAR RENTAL CLERK [address] [facility] [place] [address] [employer] Internal Medicine 07/16/24 Intelligence Agent Relationship Specialty Start Date End Date Eliza Zamora MD [address] [place] [address] PCP - General Internal Medicine 01/28/22 Kj Bird MD [address] [place] [address] Physician Cardiology 06/25/18 Ambar Ladd APRN.RELIEF WORKER [address] [place] [address] [employer] Internal Medicine 05/20/24 Tayla Goel, AMOS.FORMAL WEAR RENTAL CLERK [address] [place] [address] [employer] [employer] [facility] Internal Medicine 07/16/24 Intelligence Agent Relationship Specialty Start Date End Date Eliza Zamora MD [address] [place] [address] PCP - General Internal Medicine 01/28/22 Kj Bird MD [address] [place] [address] Physician Cardiology 06/25/18 Ambar Ladd HOBBING MACHINE OPERATOR.RELIEF WORKER [address] [facility] [place] [address] [employer] [employer] [facility] Internal Medicine 05/20/24 Tayla Goel, HOBBING MACHINE OPERATOR.FORMAL WEAR RENTAL CLERK [address] [place] [address] [employer] [employer] [facility] Internal Medicine 07/16/24 Intelligence Agent Relationship Specialty Start Date End Date Eliza Zamora MD [address] [place] [address] PCP - General Internal Medicine 01/28/22 Kj Bird MD [address] [place] [address] Physician Cardiology 06/25/18 Ambar Ladd APRN.RELIEF WORKER [address] [place] [address] [facility] Internal Medicine 05/20/24 Tayla Goel, AMOS.FORMAL WEAR RENTAL CLERK [address] [place], [place] [address] [facility] Internal Medicine 07/16/24 Intelligence Agent Relationship Specialty Start Date End Date Eliza Zamora MD [address] [place], [place] [address] PCP - General Internal Medicine 01/28/22 Kj Bird MD [address] [address] Physician Cardiology 06/25/18 Ambar Ladd APRN.RELIEF WORKER [address] [place], [place] [address] [facility] Internal Medicine 05/20/24 Tayla Goel, AMOS.FORMAL WEAR RENTAL CLERK [address] [place], [place] [address] [facility] Internal Medicine 07/16/24 Goals (unrecognized section and content) Goals may be documented in a n alternate sectionGoals may be documented in an alternate sectionGoals may be documented in an alternate sectionGoals may be documented in an alternate sectionGoals may be documented in an alternate sectionGoals may be documented in an alternate sectionGoals may be documented in an alternate sectionGoals may be documented in an alternate sectionGoals may be documented in an alternate section FOR RECORDS PERTAINING TO PATIENTS WHO ARE [...] BE BASED ON THE PRIMARY CLINICAL RECORDS. [facility] [employer] [facility]. provides no warranty or guarantee of the accuracy or completeness of information in this document.
[2024-10-16 10:52] LABS: AST(SGOT) 18 U/L (<=37); Alanine Aminotransfer ALT/SGPT 18 U/L (<=46); Albumin, Serum 4.1 g/dL (3.4-4.8); Alkaline Phosphatase 69 U/L (40-129); Anion Gap 10 (5-15); BUN 15 mg/dL (4-19); BUN/Creat Ratio 15.2 RATIO (10-20); Calcium,Total 9.5 mg/dL (7.6-11.0); Carbon Dioxide 26.5 mmol/L (21.0-32.0); Chloride 106 mmol/L (98-108); Globulin 2.4 g/dL (2.2-4.2); Glucose 127 mg/dL (70-99); Potassium 4.1 mmol/L (3.3-5.1)
== END | disposition home or self-care (01) ==
LOC: MTLAB 08:14
PROVIDERS: PCP Internal Medicine; Referring Provider Psychiatry & Neurology Neurology; Visit Provider Psychiatry & Neurology Neurology
DX: G40.909 Epilepsy, unspecified, not intractable, without status epilepticus (principal)
CPT/HCPCS: 36415; 80053

== ENCOUNTER → 2024-11-06 | Outpatient (CLI) | payer MEDICARE, MEDICAID, SELFPAY ==
[2024-11-06 15:07] LABS: Hematocrit 45.1 % (40-54); Hemoglobin 14.1 g/dL (13.0-16.5); Mean Corp Hgb Conc 31.3 g/dL (32-36); Mean Corpuscular Volume 87.9 fL (80-94); Mean Platelet Vol. 10.5 fl (6.2-12.0); Platelet Count 188 K/mm3 (150-450); RBC Distribution Width CV 14.5 % (11.6-14.6); RBC Distribution Width SD 46.8 fl (35.1-43.9); Red Blood Count 5.13 M/mm3 (4.6-6.2); White Blood Count 5.7 K/mm3 (4.4-11.0)
[2024-11-06 15:28] LABS: Magnesium 2.3 mg/dL (1.5-2.2)
== END | disposition home or self-care (01) ==
LOC: MTLAB 11:43
PROVIDERS: PCP Internal Medicine; Referring Provider Psychiatry & Neurology Neurology; Visit Provider Psychiatry & Neurology Neurology
DX: G40.909 Epilepsy, unspecified, not intractable, without status epilepticus (principal); E11.9 Type 2 diabetes mellitus without complications
CPT/HCPCS: 36415; 83036; 83735; 85027

== ENCOUNTER → 2024-11-24 | Outpatient (CLI) | payer MEDICARE, MEDICAID, SELFPAY | END | disposition home or self-care (01) | LOC: PSN 07:56 | PROVIDERS: PCP Internal Medicine; Referring Provider Psychiatry & Neurology Neurology; Visit Provider Psychiatry & Neurology Neurology | DX: G40.909 Epilepsy, unspecified, not intractable, without status epilepticus (principal) | CPT/HCPCS: 95819 ==